=== PATIENT | male | born 1955 | race Caucasian/White ===

== ENCOUNTER 2018-08-10 01:27 | Outpatient (CLI) | payer MEDICARE, BC, SELFPAY ==
[2018-08-10 12:46] LABS: Hemoglobin A1C 7.2 % (4.5-6.2)
== END 2018-08-10 01:47 ==
PROVIDERS: PCP Family Medicine; Visit Provider Family Medicine
DX: E11.9 Type 2 diabetes mellitus without complications (principal)
CPT/HCPCS: 36415; 83036

== ENCOUNTER 2019-05-23 14:18 | Outpatient (REF) | payer MEDICARE, BC, SELFPAY ==
[2019-05-23 21:36] LABS: ALT 41 U/L (16-63); AST 25 U/L (15-37); Albumin 4.1 g/dL (3.4-5.0); Alkaline Phosphatase 63 U/L (46-116); Anion Gap 12.8 mmol/L (3-11); BUN 14 mg/dL (7-18); Bilirubin, Total 0.7 mg/dL (0.2-1.0); CO2 23.2 mmol/L (21.0-32.0); CREATININE 1.06 mg/dL (0.70-1.30); Calcium 9.6 mg/dL (8.5-10.1); Calculated LDL 47 mg/dL; Chloride 103 mmol/L (98-107); Cholesterol 124 mg/dL (50-200); Glucose 197 mg/dL (70-100); HDL Cholesterol 27 mg/dL (40-60); Potassium 4.3 mmol/L (3.5-5.1); Sodium 139 mmol/L (136-145); Total Protein 7.9 g/dL (6.4-8.2); Triglyceride 251 mg/dL (30-150)
[2019-05-25 09:31] LABS: PSA, Screening 1.2 ng/ml (0-4.5)
== END 2019-05-23 14:38 ==
LOC: NCHCN 14:18
PROVIDERS: PCP Specialist/Technologist Athletic Trainer; Visit Provider Specialist/Technologist Athletic Trainer
DX: E78.5 Hyperlipidemia, unspecified (principal); I10 Essential (primary) hypertension; N40.0 Benign prostatic hyperplasia without lower urinary tract symptoms; Z12.5 Encounter for screening for malignant neoplasm of prostate
CPT/HCPCS: 80053; 80061; 83721; 84153

== ENCOUNTER 2019-05-31 12:49 | Outpatient (REF) | payer MEDICARE, BC, SELFPAY ==
[2019-06-01 06:03] LABS: Hemoglobin A1C 7.3 % (4.5-6.2)
== END 2019-05-31 13:09 ==
LOC: NCHCN 12:49
PROVIDERS: PCP Specialist/Technologist Athletic Trainer; Visit Provider Specialist/Technologist Athletic Trainer
DX: E11.9 Type 2 diabetes mellitus without complications (principal)
CPT/HCPCS: 83036

== ENCOUNTER 2019-07-03 13:28 | Outpatient (REF) | payer MEDICARE, BC, SELFPAY ==
[2019-07-05 11:44] LABS: Hepatitis C Ab w Rflx HCV PCR Negative (NEGAT)
== END 2019-07-03 13:48 ==
LOC: NCHCN 13:28
PROVIDERS: PCP Specialist/Technologist Athletic Trainer; Visit Provider Specialist/Technologist Athletic Trainer
DX: Z11.59 Encounter for screening for other viral diseases (principal)
CPT/HCPCS: 86803

== ENCOUNTER 2019-08-17 08:50 | Outpatient (CLI) | payer MEDICARE, BC, SELFPAY | END 2019-08-17 09:10 | PROVIDERS: PCP Specialist/Technologist Athletic Trainer; Visit Provider Internal Medicine Cardiovascular Disease | DX: I25.10 Atherosclerotic heart disease of native coronary artery without angina pectoris (principal); Z95.5 Presence of coronary angioplasty implant and graft; I10 Essential (primary) hypertension; E11.9 Type 2 diabetes mellitus without complications; Z79.84 Long term (current) use of oral hypoglycemic drugs | CPT/HCPCS: 99204; 93005; 93010 ==

== ENCOUNTER 2019-09-07 00:35 | Outpatient (CLI) | payer MEDICARE, BC, SELFPAY ==
--- NOTE | 2019-09-07 13:50 | DI.US_ITS ---
APPROVED REPORT EXAM: Comprehensive 2D, Doppler, and color-flow Echocardiogram Patient Location: Out-Patient Driver/Sales Workers: Marisa Melchor RDCS (AE) Rhythm: NSR Indications: CAD i25.10 Conclusion Left Ventricle : The left ventricle is normal. Left ventricular systolic function is normal. There is normal LV segmental wall motion. Diastolic function is indeterminate but there is evidence of increa sed LV filling pressures. LVEF is estimated to be 60-65%. Right Ventricle : The right ventricle is mildly dilated (4.2cm) The right ventricular systolic functi on appears normal. Atria : The left atrium size is top normal. The right atrium size is normal. Aortic Valve : Aortic valve is trileaflet. The Aortic valve is sclerotic with focal thickening on NCC C No aortic regurgitation is present. There is no aortic valvular stenosis. Mitral Valve : Mitral valve leaflets are thickened. No evidence of mitral valve stenosis. Mild to mod erate mitral regurgitation. Tricuspid Valve : Tricuspid valve is not well visualized. Trivial to mild tricuspid regurgitation. Great Vessels : IVC is mildly dilated in size and collapses >50% with inspiration. Estimated RVSP is 34-42 mmHg. Previous echocardiographic images from 2012 are unavailable for comparison. Wall motion Left Ventricle The left ventricle is normal. Left ventricular systolic function is normal. Moderate left ventricular hypertrophy. There is normal LV segmental wall motion. Diastolic function is indeterminate but there is evidence of increased LV filling pressures. LVEF is estimated to be 60-65%. Right Ventricle The right ventricle is mildly dilated (4.2cm) The right ventricular systolic function appears normal. Atria The left atrium size is top normal. The right atrium size is normal. Aortic Valve Aortic valve is trileaflet. The Aortic valve is sclerotic with focal thickening on NCCC There is no a ortic valvular stenosis. No aortic regurgitation is present. Mitral Valve Mitral valve leaflets are thickened. No evidence of mitral valve stenosis. Mild to moderate mitral re gurgitation. Tricuspid Valve Tricuspid valve is not well visualized. Trivial to mild tricuspid regurgitation. Pulmonic Valve Pulmonic valve is not well visualized. Trace pulmonic regurgitation. Great Vessels The aortic root is normal in size. The ascending aorta is mildly dilated (3.8cm). IVC is mildly dilat ed in size and collapses >50% with inspiration. Estimated RVSP is 34-42 mmHg. Pericardium Prominent anterior epicardial fat pad is present. 2D Dimensions IVSd 1.60 cm M: 0.6-1.2 LV EDV A2C 85.60 mL PWd 1.40 cm M: 0.6 - 1.2 LV EDV A4C 110.10 mL LVDd 5.15 cm M: 4.2 - 5.8 LA Volume Index A2C 35.35 mL/m2 LVDs 3.20 cm M: 2.5 - 4.0 LA Volume Index A4C 27.00 mL/m2 Aortic Root 3.45 cm M: 3.1 - 3.7 LA Volume Index Biplane 32.86 mL/m2 RA Area A4C 15.61 cm2 LA Area A4C 20.03 cm2 LVOT 1.95 cm (M/F) 1.5-2.5 LA Area A2C 24.38 cm2 Ascending Aorta 3.77 cm M: 2.6 - 3.4 EF AP4 62.67 % LVEF (Teich) 67.58 % EF AP2 64.60 % LVEF (Ruiz's) 63.29 % M: 52 - 72 EF BP 63.29 % LV Volume 72.79 mL M: 62 - 150 LV Volume Index 33.54 mL/m2 M: 34 - 74 FS 37.80 % LV Diastology E/A Ratio 1.2 MED E' 0.06 (>0.07 m/s) LV E/e MED 12.60 (<14) LAT E' 0.10 (>0.1 m/s) LV E/e LAT 7.80 (<14) Pulm Vein s 0.62 m/s PV S/D Ratio 1.02 Pulm Vein d 0.61 m/s Pulm Vein a 0.39 m/s Aortic Valve LVOT Area 3.08 cm2 LVOT Peak Abhishek. 1.25 m/s LVOT Mean Abhishek. 0.90 m/s LVOT Peak Gr. 6.60 mmHg MARK Vmax Index 1.03 cm2/m2 LVOT Mean Gr. 3.60 mmHg LVOT VTI 0.25 m MARK Mean Abhishek. Index 1.03 cm2/m2 AoV Peak Abhishek. 1.78 (0.5-1.3 m/s) AoV Mean Abhishek. 1.24 m/s AO Peak GR. 12.62 mmHg AO Mean GR. 6.93 (<5 mmHg) VTI Ratio 0.74 MARK (VTI) 2.29 (2.5-4.5 cm2) MARK (VTI) Index 1.05 cm/m2 Mitral Valve MV E Max Abhishek. 0.81 (0.4-1.3 m/s) MV A Velocity 0.65 (0.4-1.3 m/s) E/A Ratio 1.16 MV Decel. Time 179.95 (160-240 msec) MV Regurg Volume 43.15 mL MV PHT 52.19 msec MV RF 34.33 % MVA PHT 4.20 cm2 Tricuspid Valve TR P. Velocity 2.93 m/s TV Regurg Vmax 2.93 m/s RAP Estimate 8.00 mmHg RVSP 42.42 mmHg TR P. Gradient 34.40 mmHg
== END 2019-09-07 00:55 ==
PROVIDERS: PCP Specialist/Technologist Athletic Trainer; Visit Provider Internal Medicine Cardiovascular Disease
DX: I25.10 Atherosclerotic heart disease of native coronary artery without angina pectoris (principal); I35.8 Other nonrheumatic aortic valve disorders; I10 Essential (primary) hypertension
CPT/HCPCS: 93306

== ENCOUNTER 2020-07-02 10:09 | Outpatient (CLI) | payer MEDICARE, BC, SELFPAY ==
--- NOTE | 2020-07-02 10:00 | DI.RAD_ITS ---
EXAM: XR SHOULDER LT COMPLETE 2+V CLINICAL HISTORY: pain TECHNIQUE: COMPARISON: No exams were available for comparison FINDINGS: Two views were obtained. Cartilaginous joint space of the glenohumeral joint appears fairly well chung ntained. Mild hypertrophic spurring noted at the AC joint and glenohumeral joint. No additional bon y abnormality seen. No soft tissue abnormality identified on this limited series. 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 RADIATION DOSE DELIVERED: Total DLP
== END 2020-07-02 10:29 ==
PROVIDERS: PCP Nurse Practitioner Family; Referring Provider Nurse Practitioner Family; Visit Provider Orthopaedic Surgery
DX: M19.012 Primary osteoarthritis, left shoulder (principal); M75.82 Other shoulder lesions, left shoulder; M25.512 Pain in left shoulder; E11.9 Type 2 diabetes mellitus without complications; I10 Essential (primary) hypertension
CPT/HCPCS: 20610; 99203; 99214; 73030; J1040

== ENCOUNTER 2020-07-08 09:20 | Outpatient (REF) | payer MEDICARE, BC, SELFPAY ==
[2020-07-08 22:59] LABS: ALT 43 U/L (16-63); AST 24 U/L (15-37); Anion Gap 12.1 mmol/L (3-11); BUN 22 mg/dL (7-18); CO2 26.9 mmol/L (21.0-32.0); CREATININE 1.19 mg/dL (0.70-1.30); Calcium 9.7 mg/dL (8.5-10.1); Calculated LDL 70 mg/dL (<100); Chloride 103 mmol/L (98-107); Cholesterol 131 mg/dL (<200); Glucose 199 mg/dL (74-106); HDL Cholesterol 34 mg/dL (40-60); Potassium 4.8 mmol/L (3.5-5.1); Sodium 142 mmol/L (136-145); Triglyceride 138 mg/dL (<150)
[2020-07-08 23:01] LABS: Hemoglobin A1C 7.8 % (<5.7)
[2020-07-09 18:22] LABS: PSA, Screening 1.8 ng/mL (0.0-4.5)
== END 2020-07-08 09:40 ==
LOC: NCHCN 09:20
PROVIDERS: PCP Nurse Practitioner Family; Visit Provider Nurse Practitioner Family
DX: E78.5 Hyperlipidemia, unspecified (principal); I10 Essential (primary) hypertension; E11.9 Type 2 diabetes mellitus without complications; E66.9 Obesity, unspecified; Z12.5 Encounter for screening for malignant neoplasm of prostate
CPT/HCPCS: 80048; 80061; 84153; 83036; 84450; 84460

== ENCOUNTER 2021-02-25 10:56 | Outpatient (REF) | payer MEDICARE, BC, SELFPAY ==
[2021-02-25 13:43] LABS: Anion Gap 10.2 mmol/L (3-11); BUN 13 mg/dL (7-18); CO2 27.8 mmol/L (21.0-32.0); CREATININE 1.1 mg/dL (0.70-1.30); Calcium 9.5 mg/dL (8.5-10.1); Chloride 106 mmol/L (98-107); Glucose 142 mg/dL (74-106); Potassium 4.9 mmol/L (3.5-5.1); Sodium 144 mmol/L (136-145)
[2021-02-25 13:45] LABS: Hemoglobin A1C 6.3 % (<5.7)
== END 2021-02-25 10:57 | disposition home or self-care (01) ==
LOC: NCHCN 10:56
PROVIDERS: PCP Nurse Practitioner Family; Visit Provider Internal Medicine
DX: I10 Essential (primary) hypertension (principal); E78.5 Hyperlipidemia, unspecified; E11.9 Type 2 diabetes mellitus without complications; M10.9 Gout, unspecified; E66.9 Obesity, unspecified
CPT/HCPCS: 80048; 83036; 84550

== ENCOUNTER 2021-07-22 15:10 | Outpatient (REF) | payer MEDICARE, BC, SELFPAY ==
[2021-07-22 22:32] LABS: ALT 53 U/L (16-63); AST 34 U/L (15-37); Calculated LDL 28 mg/dL (<100); Cholesterol 114 mg/dL (<200); HDL Cholesterol 28 mg/dL (40-60); Triglyceride 292 mg/dL (<150)
== END 2021-07-22 15:11 | disposition home or self-care (01) ==
LOC: NCHCN 15:10
PROVIDERS: PCP Nurse Practitioner Family; Visit Provider Nurse Practitioner Family
DX: E11.9 Type 2 diabetes mellitus without complications (principal); E78.5 Hyperlipidemia, unspecified; I10 Essential (primary) hypertension; M10.9 Gout, unspecified
CPT/HCPCS: 80061; 83036; 84450; 84460

== ENCOUNTER 2022-08-04 03:32 | Outpatient (CLI) | payer MEDICARE, BC, SELFPAY ==
[2022-08-04 16:16] LABS: Hemoglobin A1C 7.2 % (<5.7)
[2022-08-04 16:50] LABS: COMMENT (LAB VIEW ONLY) 156.36 mg/dL
[2022-08-04 16:54] LABS: Microalb ug/mg Crea 72.8 ug/mg Cr
== END 2022-08-04 03:33 | disposition home or self-care (01) ==
LOC: LBO 03:32
PROVIDERS: PCP Nurse Practitioner Family; Visit Provider Internal Medicine
DX: E11.319 Type 2 diabetes mellitus with unspecified diabetic retinopathy without macular edema (principal)
CPT/HCPCS: 36415; 82043; 82570; 83036

== ENCOUNTER 2022-11-13 22:22 | Emergency (ER) | payer MEDICARE, BC, SELFPAY ==
--- NOTE | 2022-11-13 22:15 | RT.EKG_ITS ---
APPROVED REPORT Exam: Resting ECG Reason for Exam: chest pain Patient Location: E HR:57 bpm ECG Measurements Heart Rate 57 AXIS [place] 174 P -2 QRSd 98 QRS -23 QT 419 T 32 QTc 409 Conclusion Sinus bradycardia...rate< 60 Inferior infarct, old...Q >35mS, II III aVF Normal [place] Nonspecific ST-T changes There are no significant changes compared to prior EKG performed on 08/17/2019 at 13:54.
--- NOTE | 2022-11-13 22:24 | ED.GENADUL_ITS ---
Discharge Plan Disposition Condition: Stable Discharge Details Chief Complaint: Chest Pain Clinical Impression: Abdominal pain Primary Care Provider: Veronica Campbell ED Provider: Job Beck Kasson Meds and New Rx's Prescriptions: No Action gabapentin 100 mg capsule 300 mg PO DAILY naproxen sodium [Aleve] 220 mg capsule 220 mg PO BID PRN allopurinol 300 mg tablet 300 mg PO DAILY Qty: 90 3RF atorvastatin [Lipitor] 20 mg tablet 20 mg PO DAILY Qty: 90 3RF (DME) FreeStyle Lite Strips strip 1 ea Miscellaneous TID Qty: 200 6RF Rx Instructions: One twice a day metformin 1,000 mg tablet 1,000 mg PO BID Qty: 180 3RF nitroglycerin [Nitrostat] 0.4 mg tablet, sublingual 0.4 mg Sublingual ONCE MDD 2 Qty: 30 0RF Rx Instructions: Take at onset of chest pain aspirin [Aspir-Low] 81 mg tablet,delayed release (DR/EC) 81 mg PO DAILY Qty: 90 4RF losartan 50 mg tablet 50 mg PO DAILY Qty: 90 3RF Januvia 100 mg tablet 100 mg PO DAILY Qty: 90 4RF allopurinol 300 mg tablet 300 mg PO DAILY tadalafil 5 mg tablet 5 mg PO DAILY Patient Comments: Take 1 tablet by mouth once a day as needed melatonin 5 mg tablet 5 mg PO .QHS Patient Comments: Take 1 tablet by mouth at bedtime icosapent ethyl [Vascepa] 1 gram capsule 1 g PO BID Trulicity 1.5 mg/0.5 mL pen injector 1.5 mg SUBCUT 4-8XD Medical Decision Making Patient presenting to ED with upper abdominal pain radiating into his back and down his flanks. Pain began after dinner tonight. He has had his gallbladder out previously as well as CABG. Pain is not in the chest. He does not have shortness of breath. His EKG is unchanged from previous. Because of his history I will get troponin but I feel this is more likely abdominal in nature and as such we will obtain abdominal labs, urine, CT scan. Patient will be medicated with morphine and ondansetron pending labs and imaging. ECG Data Attestation: I personally reviewed and interpreted this ECG (s) as follows: Prior ECG tracings: available for review Interpretation: see EKG, unchanged HPI General Mode of arrival: ambulatory . Date/Time Provider Initiated Documentation: 11/13/22 22:23 . Limitations to Documentation: no limitations . Information obtained by: patient . HPI Narrative: Patient presents to ED with upper abdominal pain that radiates into the back and down both flanks. Pain started after dinner tonight about 3 to 4 hours ago. He has no associated nausea, vomiting, fever, sweats, shortness of breath. He describes it as chest pain but really has pain below the ribs and epigastric going into the back. He has had prior cholecystectomy but no other abdominal surgeries. He is status post CABG and reports this pain does not feel like chest pain he had prior to the surgery. Related Data Home Medications Medication Instructions Recorded Confirmed allopurinol 300 mg tablet 300 mg PO DAILY #90 tab-caps 09/23/18 11/13/22 aspirin 81 mg tablet,delayed 81 mg PO DAILY #90 tabs 09/23/18 11/13/22 release (Aspir-Low) atorvastatin 20 mg tablet (Lipitor) 20 mg PO DAILY ##90 09/23/18 11/13/22 blood sugar diagnostic (FreeStyle #200 strips 09/23/18 07/02/20 Lite Strips) metformin 1,000 mg tablet 1,000 mg PO BID #180 tab-caps 09/23/18 11/13/22 nitroglycerin 0.4 mg sublingual 0.4 mg sublingual ONCE #30 tabs 09/23/18 11/13/22 tablet (Nitrostat) losartan 50 mg tablet 50 mg PO DAILY ##90 10/17/18 11/13/22 sitagliptin phosphate 100 mg 100 mg PO DAILY #90 tab-caps 12/20/18 11/13/22 tablet (Januvia) gabapentin 100 mg capsule 300 mg PO DAILY 07/02/20 11/13/22 naproxen sodium 220 mg capsule 220 mg PO BID PRN 07/02/20 11/13/22 (Aleve) allopurinol 300 mg tablet 300 mg PO DAILY 11/13/22 11/13/22 dulaglutide 1.5 mg/0.5 mL 1.5 mg subcut 4-8XD 11/13/22 11/13/22 subcutaneous pen injector (Trulicity) icosapent ethyl 1 gram capsule 1 g PO BID 11/13/22 11/13/22 (Vascepa) melatonin 5 mg tablet 5 mg PO .QHS 11/13/22 11/13/22 tadalafil 5 mg tablet 5 mg PO DAILY 11/13/22 11/13/22 Previous Rx's Medication Instructions Recorded allopurinol 300 mg tablet 300 mg PO DAILY #90 tab-caps 09/23/18 aspirin 81 mg tablet,delayed 81 mg PO DAILY #90 tabs 09/23/18 release (Aspir-Low) atorvastatin 20 mg tablet (Lipitor) 20 mg PO DAILY ##90 09/23/18 blood sugar diagnostic (FreeStyle #200 strips 09/23/18 Lite Strips) metformin 1,000 mg tablet 1,000 mg PO BID #180 tab-caps 09/23/18 nitroglycerin 0.4 mg sublingual 0.4 mg sublingual ONCE #30 tabs 09/23/18 tablet (Nitrostat) losartan 50 mg tablet 50 mg PO DAILY ##90 10/17/18 sitagliptin phosphate 100 mg 100 mg PO DAILY #90 tab-caps 12/20/18 tablet (Januvia) Allergies Allergy/AdvReac Type Severity Reaction Status Date / Time sulfamethoxazole Allergy Intermediate Rash Unverified 11/13/22 22:29 [From Bactrim] trimethoprim [From Bactrim] Allergy Intermediate Rash Unverified 11/13/22 22:29 colchicine Allergy Skin Rash Unverified 11/13/22 22:29 metronidazole Allergy Skin Rash Unverified 11/13/22 22:29 Review of Systems Narrative: per HPI PFSH All Active Problems (Updated 11/13/22 @ 22:55 by Job Beck MD) Tendonitis of left rotator cuff (Acute) Injection: 07/02/20 Left shoulder pain (Acute) Neuropathy (Acute) Coronary artery disease (Chronic 01/30/15) CABG x 3 2010 Polyp of colon (Chronic) Overweight (Chronic) Memory impairment (Chronic) Kidney stone (Chronic) Diverticulitis of colon (Chronic) recurrent Cervical radiculopathy (Chronic 08/03/17) Abdominal pain (Chronic) Medical History Alopecia areata BPH w urinary obs/LUTS (08/03/17) Diabetes mellitus Essential hypertension (12/11/13) Gastroesophageal reflux disease Gout Hyperlipidemia (06/21/14) Surgical History History of coronary artery bypass surgery History of laparoscopic cholecystectomy (08/05/16) Status post rotator cuff repair Family History Mother No problems noted. Father No problems noted. Sister No problems noted. Brother No problems noted. Brother No problems noted. Brother No problems noted. Social History Smoking/Tobacco Use Status: Former Tobacco Use Quit Date: 09/27/94 Tobacco: How many years used: 16 Smoking risk assessment performed?: Yes Alcohol Intake: current Alcohol Intake frequency: holidays/special occasions only Drug use: Never What type of physical activity do you participate in: walking Duration: 15-30 minutes/day Frequency: 3-4 times per week Exam Narrative Exam Narrative: Const: WDWN elderly male in NAD. HEENT: NC/AT. Normal facial exam. Eyes: Normal conjunctiva and sclera. Neck: Supple. Trachea midline. Lungs: Normal respiratory effort. Lungs are clear. Cor: RRR without murmur/gallop. Good radial pulses. GI: Soft protuberant abdomen. Tender epigastric area. No guarding or rebound. Neuro: A+O x 3. Normal speech, mentation, gait. Cranial nerves II - XII grossly intact. No gross motor or sensory deficit. Ext: No C/C/E. Skin: Warm and dry without rash. Sign Out Sign Out Data: Sign Out Comment: pending labs, urine and imaging and re-eval post studies Last updated by Job Beck MD at 11/13/22 22:53
[2022-11-13 22:25] VITALS: BP 207/83; PULSE 63; RESP 16; TEMP 37.1; O2SAT 99
--- OUTSIDE RECORDS SUMMARY | 2022-11-13 22:30 | XMS_ITS | Continuity of Care Document ---
Author Name Unknown Organization [facility] Address [address] [place] [address] Care Team Providers Care Store Cashier Name Role Phone MALIA MACK Primary Care Physician Encounter [facility] NBR [id number] Date(s): 11/09/22 - 11/09/22 [facility] [address] [place] [address] us Assessment and Plan Future Appointments Social History Social History Type Response Sex Male Patient Care team information Care Team Personnel Name: MALIA MACK Position: No Access Member Role: Primary Care Physician Address: Address: [address] [address] Care Team Related Persons Name: OSITO RAINEY Address: Home [address] [place] [id number] [facility]
--- OUTSIDE RECORDS SUMMARY | 2022-11-13 22:30 | XMS_ITS ---
Author Name Princess Bernal Address [address], [place] [id number] Organization [facility] Address [address], [place] [id number] Care Team Providers Care Stock Transfer Clerk Name Role Phone Princess Bernal Unavailable [phone] PROBLEMS Unknown Problems ALLERGIES No Information ENCOUNTERS Encounter Location Date Diagnosis [facility] [address] [place], [place] [id number] Mar, [facility] [address] [place], [place] [id number] January, Encounter for screening laboratory testing for COVID-19 virus Z20.822 IMMUNIZATIONS No Known Immunizations SOCIAL HISTORY Never Assessed REASON FOR REFERRAL FUNCTIONAL STATUS PLAN OF CARE Activity Details VITAL SIGNS MEDICATIONS Unknown Medications PROCEDURES No Known procedures RESULTS Name Result Date Reference Range COVID 19 SCREENING PCR ([id number]) 2022-01-26 8 SARS-CoV-2, MEG REASON FOR VISIT PFT-complete, PFT , dmch order Insurance Providers Health Insurance Type Health Plan Insurance Address Health Plan Insurance Phone Health Plan Insurance Name Health Plan Coverage Dates Member ID Patient Relationship to Subscriber Patient Address Patient Phone Patient Name Patient Date of Subscriber ID Subscriber Name Subscriber Date of Group No MEDICARE [address] [facility] [id number] MEDICARE self Conrad Vera [id number] [place] [address] [facility] [id number] [place] self Conrad Vera [id number]
[2022-11-13 22:38] VITALS: RESP 13
[2022-11-13] MEDS: Normal Saline 1,000 ML 125 ML IV (22:47)
[2022-11-13] MEDS: Ondansetron 4 MG/2 ML VIAL IVP (22:48)
[2022-11-13] MEDS: MORPHine 10 MG/ML VIAL 4 MG IVP (22:50)
[2022-11-13 22:55] LABS: Abs Immature Grans 0.02 10^3/uL (0.0-0.06); Absolute Basophil Count 0.04 10^3/uL (0.0-0.2); Absolute Eosinophil Count 0.17 10^3/uL (0.0-0.7); Absolute Lymphocyte Count 2.41 10^3/uL (1.2-3.4); Absolute Monocyte Count 0.53 10^3/uL (0.1-0.8); Absolute Neutrophil Count 4.22 10^3/uL (1.2-6.7); Basophils % 0.5; Eosinophils % 2.3; HGB 13.6 g/dL (13.5-17.5); Immature Grans % 0.3; Lymphocytes % 32.6; MCH 31.1 pg (27.0-33.0); MCV 92 fL (80-95); MPV 10.8 fL (8.0-11.0); Monocytes % 7.2; Neutrophils % 57.1; Platelet Count 114 10^3/uL (130-400); RBC 4.37 10^6/uL (4.36-5.78); RDW 13.1 % (11.8-14.1); RDW-SD 43.5 fL; WBC 7.39 10^3/uL (4.4-10.8)
[2022-11-13 22:57] VITALS: BP 197/82; PULSE 54; PULSE 55; RESP 13
[2022-11-13 22:58] VITALS: PULSE 58; RESP 16
[2022-11-13 23:00] LABS: Bilirubin Negative (Negative); Blood Negative (Negative); Clarity Clear (Clear); Glucose Negative (Negative); Ketones Negative (Negative); Leukocyte Esterase Negative (Negative); Nitrite Negative (Negative); Specific Gravity >= 1.030 (1.005-1.025); Urobilinogen 0.2 mg/dL (Up to 0.2)
--- NOTE | 2022-11-13 23:00 | DI.CT_ITS ---
Exam(s) CT CHEST/ABD/PEL W EXAM: CT CHEST/ABD/PEL W CLINICAL HISTORY: lower chest, upper abd pain, radiating b/l to back. TECHNIQUE: Imaging Protocol: Axial computed tomography images with coronal and sagittal reformatted images were created and reviewed CONTRAST MATERIAL: Intravenous: Omnipaque 350 Contrast volume:100 ml Oral: / no COMPARISON: CT ABD PELVIS WITH CONTRAST from 01/21/2018 FINDINGS: CHEST: Tracheobronchial tree: Patent where visualized. Pulmonary parenchyma: Mild densities medial right lower lobe may represent atelectasis. Early infilt rate not excluded. No consolidation or dominant measurable mass. Pleura: No effusion or pneumothorax. Lymph nodes: Within normal limits. Aorta: Thoracic portion non-dilated. Mild atherosclerotic changes. Heart: Status post CABG. Mildly enlarged. Coronary artery calcifications. Bones: Sternal wires. No lytic or blastic lesions.No compression fractures. Degenerative disc amezcua es. ABDOMEN: Liver: Enlarged. Ivia-zi-uxcdkitr hepatic steatosis. No measurable mass. Gallbladder and biliary tract: No radiodense calculus or dilation. Pancreas: Normal density, no abnormal calcifications or inflammatory process. Spleen: Mildly enlarged, unchanged.. Kidneys: Normal size, contour and axis. No radiodense stones or obstructive uropathy. No suspicious m asses seen. Adrenal glands: No masses seen. Aorta: Abdominal portion non-dilated. Atherosclerotic changes. Lymph nodes: Within normal limits. Soft tissues: Unremarkable. PELVIS: Bladder: Nearly empty, not well evaluated. Bowel: Severe diverticulosis descending and sigmoid colon. No obstruction or bowel wall thickening. Appendix normal. Peritoneal cavity: No ascites, collection or mesenteric inflammatory response. Bones: Unremarkable for age.. Reproductive organs: Mildly enlarged prostate. IMPRESSION: Mild medial right lower lobe atelectasis versus developing infiltrate. Diverticulosis. No evidence of diverticulitis or other acute abnormality in the abdomen or pelvis. RADIATION DOSE DELIVERED: 1,471.93mGy.cm Total DLP DATA REPOSITORY: All CT scans at this facility are submitted to the National Radiology Data Registry (NRDR) Dose Index Registry (DIR) with the [employer] (ACR). RADIATION OPTIMIZATION: All CT scans at this facility use at least one of these dose optimization te chniques: automated exposure control; mA and/or kV adjustment per patient size (includes targeted exa ms where dose is matched to clinical indication); or iterative reconstruction.
[2022-11-13 23:13] LABS: Bacteria Rare HPF (Negative); C & S Indicated? No; Casts 3-5 Hyaline LPF (Negative); Crystals Negative HPF (Negative); Epithelial Cells Few HPF (Negative); Mucus Moderate (Negative); RBC Negative HPF (0-2); WBC 0-2 HPF (0-5)
[2022-11-13 23:13] LABS: ALT 33 U/L (16-63); AST 32 U/L (15-37); Albumin 4.5 g/dL (3.4-5.0); Alkaline Phosphatase 70 U/L (46-116); Anion Gap 9.9 mmol/L (3-11); BUN 14 mg/dL (7-18); Bilirubin, Total 0.9 mg/dL (0.2-1.0); CO2 26.1 mmol/L (21.0-32.0); CREATININE 1.3 mg/dL (0.70-1.30); Calcium 9.5 mg/dL (8.5-10.1); Chloride 101 mmol/L (98-107); Estimated GFR 59.47 (mL/min/1.73m2); Glucose 133 mg/dL (74-106); Lipase 40 U/L (16-77); Magnesium 1.8 mg/dL (1.8-2.4); Sodium 137 mmol/L (136-145); Total Protein 8.2 g/dL (6.4-8.2); Troponin I < 50 ng/L (<or=60)
[2022-11-13] MEDS: Sucralfate 1 GM TAB PO (23:13)
[2022-11-13] MEDS: Famotidine 20 MG/2 ML VIAL IVP (23:13)
--- NOTE | 2022-11-13 23:27 | ED.PROG_ITS ---
Date of service: 11/13/22 Time of Service: 23:00 Medical Decision Making 0 --please see Dr. Beck's note for initial presentation, exam and plan. Case endorsed to follow-up on labs and imaging and final disposition. 67-year-old male with a history of obesity, GERD, gout, hypertension, hyperlipidemia, diabetes, coronary artery disease with history of triple bypass and 5 coronary stents, cholecystectomy presents with sudden onset of lower chest and epigastric pain with radiation around to both sides of his back that started 20 minutes after eating dinner this evening. Patient states he ate pork chops, baked potato with butter and carrots and 20 minutes later developed sharp epigastric pain which radiated around to both sides of the abdomen and back. He states he also feels is radiating down both sides of his abdomen laterally. He did not take any medication at home for pain. He denies any fever, nausea, vomiting, diarrhea, urinary symptoms, coughing or shortness of breath. He states his symptoms feel different than when he has had an MA in the past. He states it also feels different compared to previous kidney stones. Abdomen is obese and tender in the epigastrium. He appears uncomfortable. His blood pressure is moderately hypertensive but the remainder of his vitals are within normal limits. His EKG on arrival noted a rate of 57, sinus and no STEMI. Patient was given morphine and Zofran per Dr. Beck and referred for labs and CT abdomen and pelvis. Considering he complains of bilateral lower chest and epigastric pain, will include chest abdomen and pelvis however I agree his symptoms are likely due to a gastrointestinal etiology. We will give a dose of IV Pepcid, Carafate and GI cocktail and reassess. 0045 --labs and imaging reviewed. Normal white blood cell count. Lactate 2. Troponin negative. Lipase within normal limits. Urinalysis negative for infection but notes high specific gravity. CT chest abdomen and pelvis no acute abdominal process consistent with patient's symptoms. History and presentation does not appear consistent with pneumonia or colitis. Patient reassessed and he feels slightly better but still appears uncomfortable. Results discussed with patient that he may be slightly dehydrated. He states he drinks 1 cup of coffee in the morning and an ice tea at nighttime and does not drink water throughout the day. Discussed the importance of staying hydrated with water. We will give a dose of Dilaudid IV. Will give fluid bolus and repeat lactate. We will plan for repeat troponin and EKG. 0240 --repeat troponin negative. Repeat EKG unremarkable. Repeat lactate now within normal limits. Patient reassessed and he feels better and would like to go home. He states he still has occasional abdominal spasms but would prefer to go home to sleep. Offered to continue to watch patient in the ER for the next 2 hours but he declines. Disposition decision made weighing the risks and benefits of hospitalization versus outpatient treatment, the risk for further decompensation, and the patient's wishes. We will give a Valium to go for home to help with sleep and muscle relaxation. A prescription for Carafate sent electronically to his pharmacy. Advised to call the PCP on Wednesday for follow-up and for referral to general surgery for upper endoscopy if symptoms do not improve or worsen. Usual and customary return precautions given prior to discharge. Medical Records Medical records reviewed: Yes I reviewed the patient's medical records. Imaging Data Radiologic Study: Radiologist's impression: CT Chest With Contrast; Diagnostic Exam date and time: 11/13/2022 11:38 PM Age: 67 years old Clinical indication: Lower chest, upper abd pain, radiating b/l to back, r/o pneumonia, gastritis, pancreatitis; Prior surgery; date: 6+ months: Open heart TECHNIQUE: Imaging protocol: Diagnostic computed tomography of the chest with contrast. 3D rendering (Not supervised by radiologist): MIP and/or 3D reconstructed images were created by the technologist. Radiation optimization: All CT scans at this facility use at least one of these dose optimization techniques: automated exposure control; mA and/or kV adjustment per patient size (includes targeted exams where dose is matched to clinical indication); or iterative reconstruction. Contrast material: OMNIPAQUE 350; Contrast volume: 100 ml; Contrast route: INTRAVENOUS (IV);? COMPARISON: CT ABD PELVIS WITH CONTRAST 01/21/2018 10:18 AM FINDINGS: Lungs: Area of mild infiltrate or atelectasis within the posteromedial right lower lobe. Pleural spaces: No pleural fluid collection. No pneumothorax. Heart: No pericardial effusion.? Coronary artery calcification.? Lymph nodes: No enlarged lymph nodes. Vasculature: Normal caliber thoracic aorta without dissection or aneurysm. Bones/joints: Spinal degenerative changes. Prior median sternotomy. Soft tissues: Unremarkable. IMPRESSION: 1.? Area of mild infiltrate or atelectasis within the posteromedial right lower lobe. 2.? No pleural fluid collection. CT Abdomen And Pelvis With Contrast Exam date and time: 11/13/2022 11:38 PM Age: 67 years old Clinical indication: Lower chest, upper abd pain, radiating b/l to back, r/o pneumonia, gastritis, pancreatitis; Prior surgery; date: 6+ months: Open heart TECHNIQUE: Imaging protocol: Computed tomography of the abdomen and pelvis with contrast. 3D rendering (Not supervised by radiologist): MIP and/or 3D reconstructed images were created by the technologist. Radiation optimization: All CT scans at this facility use at least one of these dose optimization techniques: automated exposure control; mA and/or kV adjustment per patient size (includes targeted exams where dose is matched to clinical indication); or iterative reconstruction. Contrast material: OMNIPAQUE 350; Contrast volume: 100 ml; Contrast route: INTRAVENOUS (IV);? COMPARISON: CT ABD PELVIS WITH CONTRAST 01/21/2018 10:18 AM FINDINGS: Liver: Normal. No mass. Gallbladder and bile ducts: Status post cholecystectomy. No biliary tract dilatation. Pancreas: Normal. No ductal dilation. Spleen: Splenomegaly (15 cm CC dimension). Adrenal glands: Normal. No mass. Kidneys and ureters: No hydronephrosis. No calcified renal or ureteral stones. No perinephric stranding or perinephric fluid. Stomach and bowel: The majority of the left colon is under-distended and wall thickness cannot be accurately assessed. A colitis cannot be excluded. Scattered colon diverticuli without evidence of diverticulitis. Appendix: Normal appendix. Intraperitoneal space: No free air. No significant fluid collection. Vasculature: The abdominal aorta is normal in caliber without aneurysm or dissection. Lymph nodes: No enlarged lymph nodes. Urinary bladder: Unremarkable as visualized. Reproductive: Enlarged prostate gland measuring 5 cm transversely. Bones/joints: Spinal degenerative changes. Soft tissues: Fat-containing inguinal hernias. IMPRESSION: 1.? The majority of the left colon is under-distended and wall thickness cannot be accurately assessed. A colitis cannot be excluded. 2.? Scattered colon diverticuli without evidence of diverticulitis. 3.? Enlarged prostate gland measuring 5 cm transversely. 4.? Splenomegaly (15 cm CC dimension). 5.? No CT evidence of gastritis or pancreatitis. 6.? Otherwise, no acute intra-abdominal or pelvic process. ECG Data Attestation: I personally reviewed and interpreted this ECG (s) as follows: Interpretation: #1 -- rate of sinus, Q waves inferior leads, no stemi. Sign Out Sign Out Data: Sign Out Comment: pending labs, urine and imaging and re-eval post studies Last updated by Job Beck MD at 11/13/22 22:53 Discharge Plan Disposition Patient Disposition: Home Condition: Improving Discharge Details Clinical Impression: Epigastric abdominal pain Primary Care Provider: Veronica Campbell ED Provider: Addis Miller Home Meds and New Rx's Prescriptions: New sucralfate [Carafate] 1 gram tablet 1 gm PO QACHS Qty: 14 0RF Continued gabapentin 100 mg capsule 300 mg PO DAILY naproxen sodium [Aleve] 220 mg capsule 220 mg PO BID PRN allopurinol 300 mg tablet 300 mg PO DAILY Qty: 90 3RF atorvastatin [Lipitor] 20 mg tablet 20 mg PO DAILY Qty: 90 3RF (DME) FreeStyle Lite Strips strip 1 ea Miscellaneous TID Qty: 200 6RF Rx Instructions: One twice a day metformin 1,000 mg tablet 1,000 mg PO BID Qty: 180 3RF nitroglycerin [Nitrostat] 0.4 mg tablet, sublingual 0.4 mg Sublingual ONCE MDD 2 Qty: 30 0RF Rx Instructions: Take at onset of chest pain aspirin [Aspir-Low] 81 mg tablet,delayed release (DR/EC) 81 mg PO DAILY Qty: 90 4RF losartan 50 mg tablet 50 mg PO DAILY Qty: 90 3RF Januvia 100 mg tablet 100 mg PO DAILY Qty: 90 4RF allopurinol 300 mg tablet 300 mg PO DAILY tadalafil 5 mg tablet 5 mg PO DAILY Patient Comments: Take 1 tablet by mouth once a day as needed melatonin 5 mg tablet 5 mg PO .QHS Patient Comments: Take 1 tablet by mouth at bedtime icosapent ethyl [Vascepa] 1 gram capsule 1 g PO BID Trulicity 1.5 mg/0.5 mL pen injector 1.5 mg SUBCUT [id number] Discharge Instructions Instructions: Diet for Stomach Ulcers and Gastritis (ED), GERD (Gastroesophageal Reflux Disease) (ED), Epigastric Pain (ED) Additional Instructions: Your blood tests, EKGs and imaging today are reassuring and show no evidence of acute concerning or significant findings. Drink plenty of fluids and get plenty of rest. A prescription for Carafate has been sent electronically to your pharmacy to take as directed for your abdominal pain. Start taking an [id number] omeprazole or Prilosec once daily for the next 2 weeks. Call your primary care doctor's office on Wednesday morning to schedule a follow-up appointment for reevaluation and for referral for stress test if indicated or for referral to general surgery for reevaluation and consideration of upper endoscopy if your symptoms do not improve or worsen. Return immediately to the emergency department if you develop any worsening or new concerning symptoms such as fever, worsening pain, persistent vomiting or any other concerns. Referrals: Jeremiah Mukherjee MD [ [facility] STAFF PHYSICIAN] - Discharge Data Discharge Physician: Addis Miller
[2022-11-13 23:51] VITALS: PULSE 66; RESP 16
[2022-11-13 23:53] VITALS: BP 172/76; PULSE 58; PULSE 60; RESP 12
[2022-11-13] MEDS: Omnipaque 350 MG/ML 100 ML BTL IJ (23:57)
[2022-11-13] MEDS: Normal Saline Flush 10 ML SYR IVP (23:58)
[2022-11-13] MEDS: Normal Saline - Diluent 50 ML VIAL IJ (23:58)
[2022-11-14] VITALS (29 sets, daily range): BP systolic 171–196; BP diastolic 70–85; PULSE 49–64; RESP 8–17; TEMP 37.1; O2SAT 99
--- NOTE | 2022-11-14 00:25 | DI.VRAD_ITS ---
PROCEDURE INFORMATION: Exam: CT Chest With Contrast; Diagnostic Exam date and time: 11/13/2022 11:38 PM Age: 67 years old Clinical indication: Lower chest, upper abd pain, radiating b/l to back, r/o pneumonia, gastritis, pancreatitis; Prior surgery; date: 6+ months: Open heart TECHNIQUE: Imaging protocol: Diagnostic computed tomography of the chest with contrast. 3D rendering (Not supervised by radiologist): MIP and/or 3D reconstructed images were created by the technologist. Radiation optimization: All CT scans at this facility use at least one of these dose optimization techniques: automated exposure control; mA and/or kV adjustment per patient size (includes targeted exams where dose is matched to clinical indication); or iterative reconstruction. Contrast material: OMNIPAQUE 350; Contrast volume: 100 ml; Contrast route: INTRAVENOUS (IV); COMPARISON: CT ABD PELVIS WITH CONTRAST 01/21/2018 10:18 AM FINDINGS: Lungs: Area of mild infiltrate or atelectasis within the posteromedial right lower lobe. Pleural spaces: No pleural fluid collection. No pneumothorax. Heart: No pericardial effusion. Coronary artery calcification. Lymph nodes: No enlarged lymph nodes. Vasculature: Normal caliber thoracic aorta without dissection or aneurysm. Bones/joints: Spinal degenerative changes. Prior median sternotomy. Soft tissues: Unremarkable. IMPRESSION: 1. Area of mild infiltrate or atelectasis within the posteromedial right lower lobe. 2. No pleural fluid collection. PROCEDURE INFORMATION: Exam: CT Abdomen And Pelvis With Contrast Exam date and time: 11/13/2022 11:38 PM Age: 67 years old Clinical indication: Lower chest, upper abd pain, radiating b/l to back, r/o pneumonia, gastritis, pancreatitis; Prior surgery; date: 6+ months: Open heart TECHNIQUE: Imaging protocol: Computed tomography of the abdomen and pelvis with contrast. 3D rendering (Not supervised by radiologist): MIP and/or 3D reconstructed images were created by the technologist. Radiation optimization: All CT scans at this facility use at least one of these dose optimization techniques: automated exposure control; mA and/or kV adjustment per patient size (includes targeted exams where dose is matched to clinical indication); or iterative reconstruction. Contrast material: OMNIPAQUE 350; Contrast volume: 100 ml; Contrast route: INTRAVENOUS (IV); COMPARISON: CT ABD PELVIS WITH CONTRAST 01/21/2018 10:18 AM FINDINGS: Liver: Normal. No mass. Gallbladder and bile ducts: Status post cholecystectomy. No biliary tract dilatation. Pancreas: Normal. No ductal dilation. Spleen: Splenomegaly (15 cm CC dimension). Adrenal glands: Normal. No mass. Kidneys and ureters: No hydronephrosis. No calcified renal or ureteral stones. No perinephric stranding or perinephric fluid. Stomach and bowel: The majority of the left colon is under-distended and wall thickness cannot be accurately assessed. A colitis cannot be excluded. Scattered colon diverticuli without evidence of diverticulitis. Appendix: Normal appendix. Intraperitoneal space: No free air. No significant fluid collection. Vasculature: The abdominal aorta is normal in caliber without aneurysm or dissection. Lymph nodes: No enlarged lymph nodes. Urinary bladder: Unremarkable as visualized. Reproductive: Enlarged prostate gland measuring 5 cm transversely. Bones/joints: Spinal degenerative changes. Soft tissues: Fat-containing inguinal hernias. IMPRESSION: 1. The majority of the left colon is under-distended and wall thickness cannot be accurately assessed. A colitis cannot be excluded. 2. Scattered colon diverticuli without evidence of diverticulitis. 3. Enlarged prostate gland measuring 5 cm transversely. 4. Splenomegaly (15 cm CC dimension). 5. No CT evidence of gastritis or pancreatitis. 6. Otherwise, no acute intra-abdominal or pelvic process. Dictated and Authenticated by: Sim Greenfield MD. Ordering:AUDREY Mancini MD
[2022-11-14] MEDS: Normal Saline 500 ML IV (00:26)
--- NOTE | 2022-11-14 00:45 | RT.EKG_ITS ---
APPROVED REPORT Exam: Resting ECG Reason for Exam: chest pain Patient Location: E HR:55 bpm ECG Measurements Heart Rate 55 AXIS PA 172 P 5 QRSd 98 QRS -18 QT 436 T 23 QTc 416 Conclusion Sinus bradycardia...rate< 60 Inferior infarct, old...Q >35mS, II III aVF. Sinus. No STEMI. I have reviewed and interpreted ECG and agree with software generated interpretation.
[2022-11-14] MEDS: HYDROmorphone 2 MG/ML SYR 1 MG IVP (01:01)
[2022-11-14 02:09] LABS: Troponin I < 50 ng/L (<or=60)
[2022-11-14] MEDS: Sucralfate 1 GM TAB PO (02:55)
[2022-11-14] MEDS: diazePAM 5 MG TAB PO (02:55)
--- NOTE | 2022-11-14 13:15 | NUR.NOTE ---
Nursing Note: called stating that [facility] requested at their visit last evening. Per Dr. Bernard Rivera I called the prescription in to [facility] and then changed the preference in the computer to [facility] in [place] also.
== END 2022-11-14 02:58 | disposition home or self-care (01) ==
PROVIDERS: Emergency Medicine; Emergency Provider Physician Assistant; PCP Nurse Practitioner Family
DX: R10.13 Epigastric pain (principal); I10 Essential (primary) hypertension; E11.40 Type 2 diabetes mellitus with diabetic neuropathy, unspecified; Z79.82 Long term (current) use of aspirin; Z79.84 Long term (current) use of oral hypoglycemic drugs; Z90.49 Acquired absence of other specified parts of digestive tract
CPT/HCPCS: 74177; 80053; 83690; 93005; 96361; 96374; 96375; 99284; 71260; 81003; 81015; 83605; 83735; 84484; 85025; 93010; J1170; J2270; J2405; J3490

== ENCOUNTER 2022-11-14 16:46 | Emergency (ER) | payer MEDICARE, BC, SELFPAY ==
[2022-11-14] VITALS (21 sets, daily range): BP systolic 101–108; BP diastolic 52–59; PULSE 80–102; RESP 10–24; TEMP 36.5; O2SAT 90–98
--- NOTE | 2022-11-14 16:45 | RT.EKG_ITS ---
APPROVED REPORT Exam: Resting ECG Reason for Exam: chest pain Patient Location: E HR:89 bpm ECG Measurements Heart Rate 89 AXIS MT 155 P 49 QRSd 89 QRS 85 QT 359 T 16 QTc 437 Conclusion Sinus rhythm...normal P axis, V-rate 60- 99 Low voltage, precordial leads...precordial leads <1.0mV
--- NOTE | 2022-11-14 17:25 | ED.GENADUL_ITS ---
Discharge Plan Discharge Details Chief Complaint: Chest Pain Primary Care Provider: Veronica Campbell ED Provider: Bernard Rivera Home Meds and New Rx's Prescriptions: No Action gabapentin 100 mg capsule 300 mg PO DAILY naproxen sodium [Aleve] 220 mg capsule 220 mg PO BID PRN allopurinol 300 mg tablet 300 mg PO DAILY Qty: 90 3RF atorvastatin [Lipitor] 20 mg tablet 20 mg PO DAILY Qty: 90 3RF (DME) FreeStyle Lite Strips strip 1 ea Miscellaneous TID Qty: 200 6RF Rx Instructions: One twice a day metformin 1,000 mg tablet 1,000 mg PO BID Qty: 180 3RF nitroglycerin [Nitrostat] 0.4 mg tablet, sublingual 0.4 mg Sublingual ONCE MDD 2 Qty: 30 0RF Rx Instructions: Take at onset of chest pain aspirin [Aspir-Low] 81 mg tablet,delayed release (DR/EC) 81 mg PO DAILY Qty: 90 4RF losartan 50 mg tablet 50 mg PO DAILY Qty: 90 3RF Januvia 100 mg tablet 100 mg PO DAILY Qty: 90 4RF allopurinol 300 mg tablet 300 mg PO DAILY tadalafil 5 mg tablet 5 mg PO DAILY Patient Comments: Take 1 tablet by mouth once a day as needed melatonin 5 mg tablet 5 mg PO .QHS Patient Comments: Take 1 tablet by mouth at bedtime icosapent ethyl [Vascepa] 1 gram capsule 1 g PO BID Trulicity 1.5 mg/0.5 mL pen injector 1.5 mg SUBCUT 4-8XD sucralfate [Carafate] 1 gram tablet 1 gm PO QACHS Qty: 14 0RF Medical Decision Making 1757 --67-year-old male with history of coronary artery disease status post CABG and subsequent stenting, here with severe nausea, vomiting, substernal chest discomfort. Patient was here last night for abdominal discomfort and had comprehensive work- up including serial cardiac enzymes and CT of the abdomen pelvis. Work-up was nondiagnostic. Consider ACS. EKG was reviewed and interpreted by me: Please report, sinus rhythm 89 bpm, normal axis, no STEMI, nondiagnostic. Plan to check troponin. Plan to treat nausea with Zofran 4 mg IV. 1817 -- Patient noted to be persistently hypoxic saturating the low 90s. Patient was tachycardic on arrival with heart rate 102 and low blood pressure 101/59. Consider acute pulmonary embolism and plan to obtain CT of the chest. I will give IV fluid bolus. -- Patient reassessed and feeling better. CT interpretation pending. Troponin pending. 1941 -- CT of the chest interpreted by radiology: IMPRESSION: 1. No PE. 2. Stable right lower lobe ground-glass disease. 3. Stable 3 mm right basilar nodule.For patients at low risk (minimal or absent history of smoking and of other known risk factors), no routine follow-up is indicated. For patients at high risk (history of smoking or of other known risk factors), consider optional CT Chest at 12 months. (Reference: Leo) Delta troponin pending. Lab Data Lab results reviewed: Yes I reviewed the patient's lab results. Labs: Laboratory Tests Range/Units 11/14/22 11/14/22 11/14/22 17:25 17:25 17:25 WBC (4.4-10.8) 10^3/uL 5.62 RBC (4.36-5.78) 10^6/uL 4.55 Hgb (13.5-17.5) g/dL 14.3 Hct (40.0-50.0) % 41.6 MCV (80-95) fL 91 MCH (27.0-33.0) pg 31.4 MCHC (32.0-36.0) % 34.4 RDW (11.8-14.1) % 13.3 Plt Count (130-400) 10^3/uL 130 MPV (8.0-11.0) fL 11.0 Immature Gran % 1.1 Neutrophils % 88.1 Lymphocytes % 7.5 Monocytes % 2.0 Eosinophils % 1.1 Basophils % 0.2 Nucleated RBC % (0.0-0.3) % 0.0 Absolute Neutrophils (1.2-6.7) 10^3/uL 4.96 Absolute Lymphocytes (1.2-3.4) 10^3/uL 0.42 L Absolute Monocytes (0.1-0.8) 10^3/uL 0.11 Absolute Eosinophils (0.0-0.7) 10^3/uL 0.06 Absolute Basophils (0.0-0.2) 10^3/uL 0.01 APTT (21.5-31.9) sec 21.8 Sodium (136-145) mmol/L 137 Potassium (3.5-5.1) mmol/L 4.1 Chloride (98-107) mmol/L 101 Carbon Dioxide (21.0-32.0) mmol/L 22.8 Anion Gap (3-11) mmol/L 13.2 H BUN (7-18) mg/dL 13 Creatinine (0.70-1.30) mg/dL 1.4 H Est GFR (CKD-EPI 2020) (mL/min/1.73m2) 54.41 Glucose (74-106) mg/dL 179 H Calcium (8.5-10.1) mg/dL 9.3 Magnesium (1.8-2.4) mg/dL 1.7 L Total Bilirubin (0.2-1.0) mg/dL 1.3 H AST (15-37) U/L 35 ALT (16-63) U/L 32 Alkaline Phosphatase (46-116) U/L 73 Troponin I (<or=60) ng/L < 50 Total Protein (6.4-8.2) g/dL 7.4 Albumin (3.4-5.0) g/dL 4.0 COVID-19 Source SARS-CoV-2 (PCR) (Negative) Range/Units 11/14/22 18:20 WBC (4.4-10.8) 10^3/uL RBC (4.36-5.78) 10^6/uL Hgb (13.5-17.5) g/dL Hct (40.0-50.0) % MCV (80-95) fL MCH (27.0-33.0) pg MCHC (32.0-36.0) % RDW (11.8-14.1) % Plt Count (130-400) 10^3/uL MPV (8.0-11.0) fL Immature Gran % Neutrophils % Lymphocytes % Monocytes % Eosinophils % Basophils % Nucleated RBC % (0.0-0.3) % Absolute Neutrophils (1.2-6.7) 10^3/uL Absolute Lymphocytes (1.2-3.4) 10^3/uL Absolute Monocytes (0.1-0.8) 10^3/uL Absolute Eosinophils (0.0-0.7) 10^3/uL Absolute Basophils (0.0-0.2) 10^3/uL APTT (21.5-31.9) sec Sodium (136-145) mmol/L Potassium (3.5-5.1) mmol/L Chloride (98-107) mmol/L Carbon Dioxide (21.0-32.0) mmol/L Anion Gap (3-11) mmol/L BUN (7-18) mg/dL Creatinine (0.70-1.30) mg/dL Est GFR (CKD-EPI 2020) (mL/min/1.73m2) Glucose (74-106) mg/dL Calcium (8.5-10.1) mg/dL Magnesium (1.8-2.4) mg/dL Total Bilirubin (0.2-1.0) mg/dL AST (15-37) U/L ALT (16-63) U/L Alkaline Phosphatase (46-116) U/L Troponin I (<or=60) ng/L Total Protein (6.4-8.2) g/dL Albumin (3.4-5.0) g/dL COVID-19 Source Nasal/Nares SARS-CoV-2 (PCR) (Negative) Negative HPI General Mode of arrival: ambulatory . Date/Time Provider Initiated Documentation: 11/14/22 17:05 . Limitations to Documentation: no limitations . Information obtained by: patient . HPI Narrative: 67-year-old male with history of coronary artery disease status post remote CABG, status post coronary stents placed last year, here with chief complaint of nausea. Patient was here last night and evaluated in the emergency department for abdominal discomfort. He had negative diagnostic work-up including CT of the abdomen pelvis and serial cardiac enzymes. He was feeling better and was discharged home. This morning he woke up and ate some food and then took a dose of MiraLAX around 1 PM. Around 3 PM he had an episode of shaking chills. His thought that he was hypoglycemic and gave him some juice and checked his sugar and it was around 140. Is also noted to be diaphoretic and then developed nausea and vomiting. He does have some mild epigastric/substernal chest discomfort associated with the nausea. He specifically states I do not think this is my heart and feels that this is likely gastrointestinal related. Related Data Home Medications Medication Instructions Recorded Confirmed allopurinol 300 mg tablet 300 mg PO DAILY #90 tab-caps 09/23/18 11/14/22 aspirin 81 mg tablet,delayed 81 mg PO DAILY #90 tabs 09/23/18 11/14/22 release (Aspir-Low) atorvastatin 20 mg tablet (Lipitor) 20 mg PO DAILY ##90 09/23/18 11/14/22 blood sugar diagnostic (FreeStyle #200 strips 09/23/18 11/14/22 Lite Strips) metformin 1,000 mg tablet 1,000 mg PO BID #180 tab-caps 09/23/18 11/14/22 nitroglycerin 0.4 mg sublingual 0.4 mg sublingual ONCE #30 tabs 09/23/18 11/14/22 tablet (Nitrostat) losartan 50 mg tablet 50 mg PO DAILY ##90 10/17/18 11/14/22 sitagliptin phosphate 100 mg 100 mg PO DAILY #90 tab-caps 12/20/18 11/14/22 tablet (Januvia) gabapentin 100 mg capsule 300 mg PO DAILY 07/02/20 11/14/22 naproxen sodium 220 mg capsule 220 mg PO BID PRN 07/02/20 11/14/22 (Aleve) allopurinol 300 mg tablet 300 mg PO DAILY 11/13/22 11/14/22 dulaglutide 1.5 mg/0.5 mL 1.5 mg subcut 4-8XD 11/13/22 11/14/22 subcutaneous pen injector (Trulicity) icosapent ethyl 1 gram capsule 1 g PO BID 11/13/22 11/14/22 (Vascepa) melatonin 5 mg tablet 5 mg PO .QHS 11/13/22 11/14/22 tadalafil 5 mg tablet 5 mg PO DAILY 11/13/22 11/14/22 sucralfate 1 gram tablet (Carafate) 1 gm PO QACHS #14 tabs 11/14/22 11/14/22 Previous Rx's Medication Instructions Recorded allopurinol 300 mg tablet 300 mg PO DAILY #90 tab-caps 09/23/18 aspirin 81 mg tablet,delayed 81 mg PO DAILY #90 tabs 09/23/18 release (Aspir-Low) atorvastatin 20 mg tablet (Lipitor) 20 mg PO DAILY ##90 09/23/18 blood sugar diagnostic (FreeStyle #200 strips 09/23/18 Lite Strips) metformin 1,000 mg tablet 1,000 mg PO BID #180 tab-caps 09/23/18 nitroglycerin 0.4 mg sublingual 0.4 mg sublingual ONCE #30 tabs 09/23/18 tablet (Nitrostat) losartan 50 mg tablet 50 mg PO DAILY ##90 10/17/18 sitagliptin phosphate 100 mg 100 mg PO DAILY #90 tab-caps 12/20/18 tablet (Januvia) sucralfate 1 gram tablet (Carafate) 1 gm PO QACHS #14 tabs 11/14/22 Allergies Allergy/AdvReac Type Severity Reaction Status Date / Time sulfamethoxazole Allergy Intermediate Rash Unverified 11/14/22 16:49 [From Bactrim] trimethoprim [From Bactrim] Allergy Intermediate Rash Unverified 11/14/22 16:49 colchicine Allergy Skin Rash Unverified 11/14/22 16:49 metronidazole Allergy Skin Rash Unverified 11/14/22 16:49 General Stated Complaint: Chest Pain NORBERT: 3 Review of Systems All systems reviewed & are unremarkable except as noted in HPI and below Constitutional Constitutional: Denies fever(s) Cardiovascular Cardiovascular: Reports as per HPI and Denies dyspnea Respiratory Respiratory: Denies dyspnea Gastrointestinal Gastrointestinal: Reports as per HPI, Denies melena, Denies coffee ground emesis, Reports nausea and Reports vomiting PFSH All Active Problems (Updated 11/14/22 @ 02:50 by Addis Miller DO) Epigastric abdominal pain (Acute) Tendonitis of left rotator cuff (Acute) Injection: 07/02/20 Left shoulder pain (Acute) Neuropathy (Acute) Coronary artery disease (Chronic 01/30/15) CABG x 3 2009 Polyp of colon (Chronic) Overweight (Chronic) Memory impairment (Chronic) Kidney stone (Chronic) Diverticulitis of colon (Chronic) recurrent Cervical radiculopathy (Chronic 08/03/17) Abdominal pain (Chronic) Medical History Alopecia areata BPH w urinary obs/LUTS (08/03/17) Diabetes mellitus Essential hypertension (12/11/13) Gastroesophageal reflux disease Gout Hyperlipidemia (06/21/14) Surgical History History of coronary artery bypass surgery History of laparoscopic cholecystectomy (08/05/16) Status post rotator cuff repair Family History Mother No problems noted. Father No problems noted. Sister No problems noted. Brother No problems noted. Brother No problems noted. Brother No problems noted. Social History Smoking/Tobacco Use Status: Former Tobacco Use Quit Date: 09/27/94 Tobacco: How many years used: 16 Smoking risk assessment performed?: Yes Alcohol Intake: current Alcohol Intake frequency: holidays/special occasions only Drug use: Never What type of physical activity do you participate in: walking Duration: 15-30 minutes/day Frequency: 3-4 times per week Do you feel safe at home: Yes Do you feel safe in your relationship?: Yes Exam Const General: cooperative and uncomfortable Orientation: alert and awake HENMT Mouth: moist mucous membranes Eyes Conjunctivae: normal conjunctivae Sclera: normal sclerae Neck Neck: trachea midline Resp Auscultation: clear to auscultation bilaterally, no rales, no rhonchi and no wheezes Cardio Rate: regular rate and not tachycardic Rhythm: regular rhythm GI Palpation: soft, not firm, no guarding, no masses, not rigid and nontender Auscultation: normal bowel sounds Skin General skin exam: no rashes or lesions noted Neuro General: patient alert, patient awake and tone normal Extrem General: no edema Psych Appearance: grossly normal Mental Status: mental status grossly normal Speech and Movement: speech and movement normal Course Vital Signs Vital signs: Vital Signs Temperature 36.5 C 11/14/22 16:51 Pulse 102 H 11/14/22 16:51 Respiratory Rate 11/14/22 16:51 Blood Pressure 101/59 L 11/14/22 16:51 Pulse Oximetry 97 11/14/22 16:51 Temperature 36.5 C 11/14/22 16:51 Temperature Source Tympanic 11/14/22 16:51 Pulse 102 H 11/14/22 16:51 Respiratory Rate 22 11/14/22 16:51 Respiratory Effort Normal 11/14/22 17:15 Respiratory Depth Normal 11/14/22 17:15 Respiratory Pattern Normal 11/14/22 17:15 Blood Pressure 101/59 L 11/14/22 16:51 Pulse Oximetry 97 11/14/22 16:51 Oxygen Delivery Method Room Air 11/14/22 16:51 Oxygen Flow Rate 0 11/14/22 16:51
[2022-11-14] MEDS: Ondansetron 4 MG/2 ML VIAL IVP (17:28)
[2022-11-14 17:39] LABS: Abs Immature Grans 0.06 10^3/uL (0.0-0.06); Absolute Basophil Count 0.01 10^3/uL (0.0-0.2); Absolute Eosinophil Count 0.06 10^3/uL (0.0-0.7); Absolute Lymphocyte Count 0.42 10^3/uL (1.2-3.4); Absolute Monocyte Count 0.11 10^3/uL (0.1-0.8); Absolute Neutrophil Count 4.96 10^3/uL (1.2-6.7); Basophils % 0.2; Eosinophils % 1.1; HCT 41.6 % (40.0-50.0); HGB 14.3 g/dL (13.5-17.5); Immature Grans % 1.1; Lymphocytes % 7.5; MCH 31.4 pg (27.0-33.0); MCHC 34.4 % (32.0-36.0); MCV 91 fL (80-95); Neutrophils % 88.1; Platelet Count 130 10^3/uL (130-400); RBC 4.55 10^6/uL (4.36-5.78); RDW 13.3 % (11.8-14.1); RDW-SD 44.6 fL; WBC 5.62 10^3/uL (4.4-10.8)
[2022-11-14 17:53] LABS: PTT Activated 21.8 sec (21.5-31.9)
[2022-11-14 17:57] LABS: ALT 32 U/L (16-63); AST 35 U/L (15-37); Alkaline Phosphatase 73 U/L (46-116); Anion Gap 13.2 mmol/L (3-11); BUN 13 mg/dL (7-18); Bilirubin, Total 1.3 mg/dL (0.2-1.0); CO2 22.8 mmol/L (21.0-32.0); CREATININE 1.4 mg/dL (0.70-1.30); Calcium 9.3 mg/dL (8.5-10.1); Chloride 101 mmol/L (98-107); Estimated GFR 54.41 (mL/min/1.73m2); Glucose 179 mg/dL (74-106); Magnesium 1.7 mg/dL (1.8-2.4); Potassium 4.1 mmol/L (3.5-5.1); Sodium 137 mmol/L (136-145); Total Protein 7.4 g/dL (6.4-8.2); Troponin I < 50 ng/L (<or=60)
--- NOTE | 2022-11-14 18:15 | DI.CT_ITS ---
Exam(s) CT CHEST PE CTA EXAM: CT CHEST PE CTA CLINICAL HISTORY: hypoxia, chest pain. TECHNIQUE: Imaging Protocol: Axial CT angiography was performed with multi-slice acquisition and mu lti-planar reconstructions as well as axial, coronal and sagittal MIP reconstructions. CONTRAST MATERIAL: Intravenous: Omnipaque 350 Contrast volume:100 ml COMPARISON: CT CT CHEST/ABD/PEL W from 11/13/2022 FINDINGS: Pulmonary Arteries: No evidence of filling defect to suggest pulmonary emboli. Tracheobronchial tree: Patent where visualized. Mediastinum and Karla: Mildly enlarged mediastinal lymph nodes. Pulmonary parenchyma: Mild ground-glass opacities right lower lobe.no consolidation or dominant measu rable mass. Pleura: No effusion or pneumothorax. Heart: The heart is not dilated. S/P CABG. Coronary artery calcifications. Aorta: Thoracic aorta non-dilated. No aneurysm. No dissection. Upper abdomen: Unremarkable. Bones: Sternal wires. Degenerative changes spine. Tubes, Catheters, and Lines: IMPRESSION: No evidence of pulmonary embolism. Mild right lower lobe ground-glass opacities. RADIATION DOSE DELIVERED: 461.22mGy.cm Total DLP DATA REPOSITORY: All CT scans at this facility are submitted to the National Radiology Data Registry (NRDR) Dose Index Registry (DIR) with the [employer] (ACR). RADIATION OPTIMIZATION: All CT scans at this facility use at least one of these dose optimization te chniques: automated exposure control; mA and/or kV adjustment per patient size (includes targeted exa ms where dose is matched to clinical indication); or iterative reconstruction.
[2022-11-14 18:26] LABS: Source Nasal/Nares
[2022-11-14] MEDS: Normal Saline - Diluent 50 ML VIAL IJ (18:34)
[2022-11-14 18:58] LABS: COVID-19 PCR Negative (Negative)
--- NOTE | 2022-11-14 19:37 | DI.VRAD_ITS ---
PROCEDURE INFORMATION: Exam: CTA Chest With Contrast Exam date and time: 11/14/2022 6:33 PM Age: 67 years old Clinical indication: Other: Hypoxia, chest pain TECHNIQUE: Imaging protocol: Computed tomographic angiography of the chest with contrast. 3D rendering (Not supervised by radiologist): MIP and/or 3D reconstructed images were created by the technologist. Total images: 1877 Contrast material: 350; Contrast volume: 100 ml; Contrast route: INTRAVENOUS (IV); COMPARISON: CT CHEST/ABD/PEL W 11/13/2022 11:38 PM FINDINGS: Pulmonary arteries: No filling defect in the pulmonary arterial tree. Aorta: No aortic aneurysm. No aortic dissection. Trachea: Tiny mucous polyp in the anterior trachea. Lungs: Stable 3 mm lateral right basilar nodule (image 83 of series 4). No consolidation. Persistent right lower lobe paraspinal ground-glass opacity and less notably laterally at the right lung base. Pleural spaces: No pneumothorax. No pleural effusion. Heart: No pericardial effusion. Coronary arteries: Significant coronary artery calcification. Lymph nodes: There are stable small mediastinal nodes, short axis diameter measuring up to 1 cm. No hilar adenopathy. No axillary adenopathy. Liver: Hepatic steatosis. Bones/joints: Prior median sternotomy. Thoracic kyphosis and spondylosis. Soft tissues: Extrathoracic soft tissues are unremarkable. IMPRESSION: 1. No PE. 2. Stable right lower lobe ground-glass disease. 3. Stable 3 mm right basilar nodule.For patients at low risk (minimal or absent history of smoking and of other known risk factors), no routine follow-up is indicated. For patients at high risk (history of smoking or of other known risk factors), consider optional CT Chest at 12 months. (Reference: Leo) REFERENCES: Leo Dalton, et al. Guidelines for Management of Incidental Pulmonary Nodules Detected on CT Images: From the Fleischner Society 2017. Radiology. 2017;284(1):228-243. Dictated and Authenticated by: Johnson Nelson MD. Ordering:DAVIS Wagner MD
[2022-11-14] MEDS: Amoxicillin 875/Clav. 125 TAB PO (19:52)
[2022-11-14 20:32] LABS: Troponin I < 50 ng/L (<or=60)
--- NOTE | 2022-11-14 21:53 | W.EDPROG ---
Date of service: 11/14/22 Time of Service: 21:45 Medical Decision Making 1999 --please see Dr. Rivera's note for initial presentation, exam and plan. Case endorsed to follow-up on repeat troponin and if patient continues to feel better, will plan for discharge home with treatment of possible pneumonia with Augmentin. 2199 --repeat troponin negative. Patient reassessed at bedside and he feels much better. Patient was seen here yesterday for epigastric pain and had a CT chest abdomen pelvis which was essentially unremarkable for acute findings. He states after discharged here earlier this morning he was able to sleep a few hours and eat and his epigastric pain had near resolved. He states this afternoon while sitting at the computer he developed sudden onset of shaking chills followed by 2 episodes of vomiting. He denies any fever, cough, chest pain, shortness of breath, or diarrhea. He was given Zofran here and feels much better. His repeat CT chest here today notes a stable right lower lobe groundglass disease. Discussed that patient may also have a GI component to his symptoms or this may be related to a possible pneumonia. Patient does feel comfortable going home. He was given Zofran and Augmentin to go in addition to prescriptions for both sent electronically to his pharmacy. Advised to follow up with the primary care doctor for re-evaluation. Usual and customary return precautions given prior to discharge. Medical Records Medical records reviewed: Yes I reviewed the patient's medical records. Medical records narrative: 11/13/22 CT Chest With Contrast; Diagnostic Exam date and time: 11/13/2022 11:38 PM Age: 67 years old Clinical indication: Lower chest, upper abd pain, radiating b/l to back, r/o pneumonia, gastritis, pancreatitis; Prior surgery; date: 6+ months: Open heart TECHNIQUE: Imaging protocol: Diagnostic computed tomography of the chest with contrast. 3D rendering (Not supervised by radiologist): MIP and/or 3D reconstructed images were created by the technologist. Radiation optimization: All CT scans at this facility use at least one of these dose optimization techniques: automated exposure control; mA and/or kV adjustment per patient size (includes targeted exams where dose is matched to clinical indication); or iterative reconstruction. Contrast material: OMNIPAQUE 350; Contrast volume: 100 ml; Contrast route: INTRAVENOUS (IV);? COMPARISON: CT ABD PELVIS WITH CONTRAST 01/21/2018 10:18 AM FINDINGS: Lungs: Area of mild infiltrate or atelectasis within the posteromedial right lower lobe. Pleural spaces: No pleural fluid collection. No pneumothorax. Heart: No pericardial effusion.? Coronary artery calcification.? Lymph nodes: No enlarged lymph nodes. Vasculature: Normal caliber thoracic aorta without dissection or aneurysm. Bones/joints: Spinal degenerative changes. Prior median sternotomy. Soft tissues: Unremarkable. IMPRESSION: 1.? Area of mild infiltrate or atelectasis within the posteromedial right lower lobe. 2.? No pleural fluid collection. CT Abdomen And Pelvis With Contrast Exam date and time: 11/13/2022 11:38 PM Age: 67 years old Clinical indication: Lower chest, upper abd pain, radiating b/l to back, r/o pneumonia, gastritis, pancreatitis; Prior surgery; date: 6+ months: Open heart TECHNIQUE: Imaging protocol: Computed tomography of the abdomen and pelvis with contrast. 3D rendering (Not supervised by radiologist): MIP and/or 3D reconstructed images were created by the technologist. Radiation optimization: All CT scans at this facility use at least one of these dose optimization techniques: automated exposure control; mA and/or kV adjustment per patient size (includes targeted exams where dose is matched to clinical indication); or iterative reconstruction. Contrast material: OMNIPAQUE 350; Contrast volume: 100 ml; Contrast route: INTRAVENOUS (IV);? COMPARISON: CT ABD PELVIS WITH CONTRAST 01/21/2018 10:18 AM FINDINGS: Liver: Normal. No mass. Gallbladder and bile ducts: Status post cholecystectomy. No biliary tract dilatation. Pancreas: Normal. No ductal dilation. Spleen: Splenomegaly (15 cm CC dimension). Adrenal glands: Normal. No mass. Kidneys and ureters: No hydronephrosis. No calcified renal or ureteral stones. No perinephric stranding or perinephric fluid. Stomach and bowel: The majority of the left colon is under-distended and wall thickness cannot be accurately assessed. A colitis cannot be excluded. Scattered colon diverticuli without evidence of diverticulitis. Appendix: Normal appendix. Intraperitoneal space: No free air. No significant fluid collection. Vasculature: The abdominal aorta is normal in caliber without aneurysm or dissection. Lymph nodes: No enlarged lymph nodes. Urinary bladder: Unremarkable as visualized. Reproductive: Enlarged prostate gland measuring 5 cm transversely. Bones/joints: Spinal degenerative changes. Soft tissues: Fat-containing inguinal hernias. IMPRESSION: 1.? The majority of the left colon is under-distended and wall thickness cannot be accurately assessed. A colitis cannot be excluded. 2.? Scattered colon diverticuli without evidence of diverticulitis. 3.? Enlarged prostate gland measuring 5 cm transversely. 4.? Splenomegaly (15 cm CC dimension). 5.? No CT evidence of gastritis or pancreatitis. 6.? Otherwise, no acute intra-abdominal or pelvic process. Imaging Data Radiologic Study: Radiologist's impression: CTA Chest With Contrast Exam date and time: 11/14/2022 6:33 PM Age: 67 years old Clinical indication: Other: Hypoxia, chest pain TECHNIQUE: Imaging protocol: Computed tomographic angiography of the chest with contrast. 3D rendering (Not supervised by radiologist): MIP and/or 3D reconstructed images were created by the technologist. Total images: 1877 Contrast material: 350; Contrast volume: 100 ml; Contrast route: INTRAVENOUS (IV);? COMPARISON: CT CHEST/ABD/PEL W 11/13/2022 11:38 PM FINDINGS: Pulmonary arteries: No filling defect in the pulmonary arterial tree. Aorta: No aortic aneurysm. No aortic dissection. Trachea: Tiny mucous polyp in the anterior trachea. Lungs: Stable 3 mm lateral right basilar nodule (image 83 of series 4). No consolidation. Persistent right lower lobe paraspinal ground-glass opacity and less notably laterally at the right lung base. Pleural spaces: No pneumothorax. No pleural effusion. Heart: No pericardial effusion. Coronary arteries: Significant coronary artery calcification. Lymph nodes: There are stable small mediastinal nodes, short axis diameter measuring up to 1 cm. No hilar adenopathy. No axillary adenopathy. Liver: Hepatic steatosis. Bones/joints: Prior median sternotomy. Thoracic kyphosis and spondylosis. Soft tissues: Extrathoracic soft tissues are unremarkable. IMPRESSION: 1. No PE. 2. Stable right lower lobe ground-glass disease. 3. Stable 3 mm right basilar nodule.For patients at low risk (minimal or absent history of smoking and of other known risk factors), no routine follow-up is indicated. For patients at high risk (history of smoking or of other known risk factors), consider optional CT Chest at 12 months. (Reference: Leo) Lab Data Lab results reviewed: Yes I reviewed the patient's lab results. ECG Data Attestation: I personally reviewed and interpreted this ECG (s) as follows: Interpretation: rate of 89, sinus, normal axis, no stemi. Sign Out Sign Out Data: Sign Out Comment: followup delta troponin and reassess patient for disposition. Plan to treat infiltrate with augmentin. Last updated by Bernard Rivera MD at 11/14/22 19:47 Discharge Plan Disposition Patient Disposition: Home Discharge Details Clinical Impression: Pneumonia, Epigastric abdominal pain, Vomiting Primary Care Provider: Veronica Campbell ED Provider: Addis Miller Home Meds and New Rx's Prescriptions: New amoxicillin-pot clavulanate 875-125 mg tablet 1 tab PO BID 7 Days Qty: 14 0RF ondansetron 4 mg tablet,disintegrating 4 mg PO TID PRN (Reason: nausea and vomiting) Qty: 6 0RF Continued gabapentin 100 mg capsule 300 mg PO DAILY naproxen sodium [Aleve] 220 mg capsule 220 mg PO BID PRN allopurinol 300 mg tablet 300 mg PO DAILY Qty: 90 3RF atorvastatin [Lipitor] 20 mg tablet 20 mg PO DAILY Qty: 90 3RF (DME) FreeStyle Lite Strips strip 1 ea Miscellaneous TID Qty: 200 6RF Rx Instructions: One twice a day metformin 1,000 mg tablet 1,000 mg PO BID Qty: 180 3RF nitroglycerin [Nitrostat] 0.4 mg tablet, sublingual 0.4 mg Sublingual ONCE MDD 2 Qty: 30 0RF Rx Instructions: Take at onset of chest pain aspirin [Aspir-Low] 81 mg tablet,delayed release (DR/EC) 81 mg PO DAILY Qty: 90 4RF losartan 50 mg tablet 50 mg PO DAILY Qty: 90 3RF Januvia 100 mg tablet 100 mg PO DAILY Qty: 90 4RF allopurinol 300 mg tablet 300 mg PO DAILY tadalafil 5 mg tablet 5 mg PO DAILY Patient Comments: Take 1 tablet by mouth once a day as needed melatonin 5 mg tablet 5 mg PO .QHS Patient Comments: Take 1 tablet by mouth at bedtime icosapent ethyl [Vascepa] 1 gram capsule 1 g PO BID Trulicity 1.5 mg/0.5 mL pen injector 1.5 mg SUBCUT 4-8XD sucralfate [Carafate] 1 gram tablet 1 gm PO QACHS Qty: 14 0RF Discharge Instructions Instructions: Acute Nausea and Vomiting (ED), Pneumonia (ED), Epigastric Pain (ED) Additional Instructions: Your blood tests and EKG today are reassuring today and show no evidence of acute concerning or significant findings. Your imaging shows that you may have a right-sided pneumonia. Your nausea and vomiting and epigastric pain may be secondary to this or due to another viral process. Drink plenty of fluids and get plenty of rest. Take the Zofran as needed and directed for nausea and vomiting. A prescription for an antibiotic has been sent electronically to your pharmacy to take as directed until finished.. Follow-up with your primary care doctor in 1 week. Return to the emergency department with any worsening or new concerning symptoms. Discharge Data Discharge Date/Time-TO BE ENTERED AT DEPARTURE: 11/14/22 22:21 Discharge Physician: Addis Miller
[2022-11-14 21:59] LABS: Lipase 40 U/L (16-77)
[2022-11-14] MEDS: Amox. 875/Clav. 125, 2 TABS/BTL 1 TAB PO (22:00)
[2022-11-14] MEDS: Ondansetron O.D.T. 4 MG TABEF, 3 TABS/BTL PO (22:00)
== END 2022-11-14 22:21 | disposition home or self-care (01) ==
PROVIDERS: Student in an Organized Health Care Education/Training Program; Emergency Provider Physician Assistant; PCP Nurse Practitioner Family
DX: J18.9 Pneumonia, unspecified organism (principal); R10.13 Epigastric pain; I25.10 Atherosclerotic heart disease of native coronary artery without angina pectoris; E11.40 Type 2 diabetes mellitus with diabetic neuropathy, unspecified; I10 Essential (primary) hypertension; R11.2 Nausea with vomiting, unspecified; Z79.82 Long term (current) use of aspirin; Z79.84 Long term (current) use of oral hypoglycemic drugs; Z79.4 Long term (current) use of insulin; Z20.822 Contact with and (suspected) exposure to COVID-19; Z95.1 Presence of aortocoronary bypass graft; Z87.891 Personal history of nicotine dependence
CPT/HCPCS: 36416; 71275; 80053; 82962; 83690; 87635; 93005; 96361; 96374; 99285; 83605; 83735; 84484; 85025; 85730; 93010; J1170; J2405

== ENCOUNTER 2023-03-09 14:56 | Outpatient (REF) | payer MEDICARE, BC, SELFPAY ==
[2023-03-09 15:32] LABS: HCT 36.2 % (40.0-50.0); HGB 12.3 g/dL (13.5-17.5); MCH 31.4 pg (27.0-33.0); MCV 92 fL (80-95); Platelet Count 125 10^3/uL (130-400); RBC 3.92 10^6/uL (4.36-5.78); RDW 13.8 % (11.8-14.1); RDW-SD 46.3 fL; WBC 6.24 10^3/uL (4.4-10.8)
[2023-03-09 16:05] LABS: Calculated LDL 51 mg/dL (<100); Cholesterol 102 mg/dL (<200); HDL Cholesterol 31 mg/dL (40-60); Triglyceride 104 mg/dL (<150)
[2023-03-09 17:39] LABS: ALT 26 U/L (16-63); AST 15 U/L (15-37); Albumin 4.1 g/dL (3.4-5.0); Alkaline Phosphatase 72 U/L (46-116); Anion Gap 10.8 mmol/L (3-11); BUN 20 mg/dL (7-18); Bilirubin, Total 0.7 mg/dL (0.2-1.0); CO2 21.2 mmol/L (21.0-32.0); CREATININE 1.2 mg/dL (0.70-1.30); Calcium 9.4 mg/dL (8.5-10.1); Chloride 107 mmol/L (98-107); Estimated GFR 65.46 (mL/min/1.73m2); Glucose 162 mg/dL (74-106); Potassium 4.9 mmol/L (3.5-5.1); Sodium 139 mmol/L (136-145); Total Protein 7.6 g/dL (6.4-8.2)
== END 2023-03-09 14:57 | disposition home or self-care (01) ==
LOC: NCHCN 14:56
PROVIDERS: PCP Nurse Practitioner Family; Visit Provider Nurse Practitioner Family
DX: E78.5 Hyperlipidemia, unspecified (principal); N40.0 Benign prostatic hyperplasia without lower urinary tract symptoms; I10 Essential (primary) hypertension
CPT/HCPCS: 80053; 80061; 84153; 85027

== ENCOUNTER 2023-05-26 21:22 | Outpatient (REF) | payer MEDICARE, BC, SELFPAY ==
[2023-05-26 21:34] LABS: ESR 33 mm/hr (0-20)
[2023-05-26 21:37] LABS: HCT 33.9 % (40.0-50.0); HGB 11.6 g/dL (13.5-17.5); MCH 30.5 pg (27.0-33.0); MCHC 34.2 % (32.0-36.0); MCV 89 fL (80-95); MPV 10.5 fL (8.0-11.0); Platelet Count 109 10^3/uL (130-400); RDW 13.8 % (11.8-14.1); RDW-SD 44.9 fL; WBC 6.37 10^3/uL (4.4-10.8)
[2023-05-26 21:50] LABS: Iron 107 ug/dL (65-175); Total Iron Binding Capacity 371 ug/dL (250-450); Transferrin Sat 29 % (20-55)
[2023-05-26 21:57] LABS: ALT 18 U/L (16-63); AST 16 U/L (15-37); Albumin 3.3 g/dL (3.4-5.0); Alkaline Phosphatase 67 U/L (46-116); Anion Gap 12.1 mmol/L (3-11); BUN 19 mg/dL (7-18); Bilirubin, Total 0.7 mg/dL (0.2-1.0); CO2 22.9 mmol/L (21.0-32.0); CREATININE 1.2 mg/dL (0.70-1.30); Calcium 8.8 mg/dL (8.5-10.1); Chloride 106 mmol/L (98-107); Estimated GFR 65.06 (mL/min/1.73m2); Glucose 141 mg/dL (74-106); NT-proBNP 107 pg/mL (<300); Potassium 4.4 mmol/L (3.5-5.1); Sodium 141 mmol/L (136-145); TSH (W/Ref FT4) 4.62 uIU/mL (0.36-3.74)
[2023-05-26 22:24] LABS: FREE T4 0.99 ng/dL (0.76-1.46)
[2023-05-26 23:00] LABS: Hemoglobin A1C 6.3 % (<5.7)
[2023-05-27 20:01] LABS: Rheumatoid Factor <8.6 IU/mL (<12.0)
[2023-05-28 16:54] LABS: ANA Interpretation Positive (Negative); ANA Titer Pattern 1:80 Speckled
== END 2023-05-26 21:23 | disposition home or self-care (01) ==
LOC: NCHCN 21:22
PROVIDERS: PCP Nurse Practitioner Family; Visit Provider Nurse Practitioner Family
DX: R53.83 Other fatigue (principal); R60.9 Edema, unspecified
CPT/HCPCS: 80053; 85027; 85652; 83036; 83540; 83550; 83880; 84439; 84443; 86038; 86431

== ENCOUNTER 2023-06-01 21:13 | Outpatient (REF) | payer MEDICARE, BC, SELFPAY ==
[2023-06-01 21:26] LABS: Reticulocyte 2.4 % (0.5-2.4)
[2023-06-01 21:49] LABS: Ferritin 158 ng/mL (26-388); Magnesium 1.4 mg/dL (1.8-2.4); Vitamin B12 550 pg/mL (193-986)
[2023-06-01 22:11] LABS: NT-proBNP 226 pg/mL (<300)
[2023-06-04 14:10] LABS: Albumin 51.9 % (55.8-66.1); Albumin g/dL 3.9 g/dL (3.6-5.2); Comment (See Note); Total Protein 7.5 g/dL (6.3-8.2)
[2023-06-04 14:39] LABS: Immunotyping, Serum (See Note)
== END 2023-06-01 21:14 | disposition home or self-care (01) ==
LOC: NCHCN 21:13
PROVIDERS: PCP Nurse Practitioner Family; Visit Provider Nurse Practitioner Family
DX: D64.9 Anemia, unspecified (principal); E83.42 Hypomagnesemia; E88.09 Other disorders of plasma-protein metabolism, not elsewhere classified; R60.9 Edema, unspecified
CPT/HCPCS: 82607; 82728; 83735; 83880; 84165; 85045; 86320

== ENCOUNTER 2023-07-14 13:56 | Outpatient (REF) | payer MEDICARE, BC, SELFPAY ==
[2023-07-14 14:47] LABS: Abs Immature Grans 0.04 10^3/uL (0.0-0.06); Absolute Basophil Count 0.07 10^3/uL (0.0-0.2); Absolute Eosinophil Count 0.34 10^3/uL (0.0-0.7); Absolute Monocyte Count 0.55 10^3/uL (0.1-0.8); Absolute Neutrophil Count 3.75 10^3/uL (1.2-6.7); Basophils % 1.1; Eosinophils % 5.3; HCT 38.3 % (40.0-50.0); HGB 12.9 g/dL (13.5-17.5); Immature Grans % 0.6; Lymphocytes % 26.4; MCH 30.4 pg (27.0-33.0); MCHC 33.7 % (32.0-36.0); MCV 90 fL (80-95); MPV 10.8 fL (8.0-11.0); Monocytes % 8.5; Neutrophils % 58.1; Platelet Count 125 10^3/uL (130-400); RBC 4.25 10^6/uL (4.36-5.78); RDW 14.1 % (11.8-14.1); WBC 6.45 10^3/uL (4.4-10.8)
[2023-07-14 15:01] LABS: Hemoglobin A1C 6.2 % (<5.7)
[2023-07-14 15:04] LABS: Iron 55 ug/dL (65-175); Total Iron Binding Capacity 302 ug/dL (250-450); Transferrin Sat 18 % (20-55)
[2023-07-14 15:17] LABS: ALT 24 U/L (16-63); AST 17 U/L (15-37); Albumin 3.2 g/dL (3.4-5.0); Alkaline Phosphatase 83 U/L (46-116); Anion Gap 10.8 mmol/L (3-11); BUN 19 mg/dL (7-18); Bilirubin, Total 0.4 mg/dL (0.2-1.0); CO2 22.2 mmol/L (21.0-32.0); CREATININE 1.3 mg/dL (0.70-1.30); Calcium 9.5 mg/dL (8.5-10.1); Chloride 106 mmol/L (98-107); Ferritin 143 ng/mL (26-388); Glucose 213 mg/dL (74-106); Potassium 4.8 mmol/L (3.5-5.1); Sodium 139 mmol/L (136-145); TSH (W/Ref FT4) 6.19 uIU/mL (0.36-3.74); Total Protein 7.3 g/dL (6.4-8.2)
[2023-07-14 15:49] LABS: FREE T4 0.96 ng/dL (0.76-1.46); LDH 150 U/L (85-227)
== END 2023-07-14 13:57 | disposition home or self-care (01) ==
LOC: NCHCN 13:56
PROVIDERS: PCP Nurse Practitioner Family; Visit Provider Nurse Practitioner Family
DX: D64.9 Anemia, unspecified (principal); R59.9 Enlarged lymph nodes, unspecified; Z79.899 Other long term (current) drug therapy
CPT/HCPCS: 80053; 82232; 82728; 83036; 83540; 83550; 83615; 84439; 84443; 85025

== ENCOUNTER 2023-09-13 16:48 | Outpatient (REF) | payer MEDICARE, BC, SELFPAY ==
[2023-09-13 14:44] LABS: HCT 36.4 % (40.0-50.0); HGB 12.3 g/dL (13.5-17.5); MCH 29.9 pg (27.0-33.0); MCHC 33.8 % (32.0-36.0); MCV 88 fL (80-95); MPV 11.2 fL (8.0-11.0); Platelet Count 112 10^3/uL (130-400); RBC 4.12 10^6/uL (4.36-5.78); RDW 14.4 % (11.8-14.1); RDW-SD 45.9 fL; WBC 5.64 10^3/uL (4.4-10.8)
[2023-09-13 15:14] LABS: ALT 29 U/L (16-63); AST 18 U/L (15-37); Albumin 3.6 g/dL (3.4-5.0); Alkaline Phosphatase 79 U/L (46-116); Anion Gap 10.9 mmol/L (3-11); BUN 17 mg/dL (7-18); Bilirubin, Total 0.6 mg/dL (0.2-1.0); CO2 23.1 mmol/L (21.0-32.0); CREATININE 1.2 mg/dL (0.70-1.30); Calcium 9.6 mg/dL (8.5-10.1); Chloride 107 mmol/L (98-107); Estimated GFR 65.06 (mL/min/1.73m2); Glucose 168 mg/dL (74-106); Potassium 4.7 mmol/L (3.5-5.1); Sodium 141 mmol/L (136-145); TSH (W/Ref FT4) 1.78 uIU/mL (0.36-3.74); Total Protein 7.5 g/dL (6.4-8.2)
--- OUTSIDE RECORDS SUMMARY | 2023-09-13 16:52 | XMS_ITS | Continuity of Care Document ---
Author Name Unknown Organization [facility] Address [address] [place] [address] Care Team Providers Care Psychology Technician Name Role Phone MALIA MACK Primary Care Physician Encounter [facility] NBR [id number] Date(s): 12/01/22 - 12/01/[address] [address]- [place] Discharge Disposition: Home or Self Care Attending Physician: MALIA MACK Admitting Physician: MALIA MACK Allergies, Adverse Reactions, Alerts Substance Reaction Severity Status Flagyl 1 Unknown Active 1colchicine Assessment and Plan Future Scheduled Tests Radiology* MRI Shoulder w/o Contrast Right 12/01/22 * MRI Spine Cervical w/o Contrast 12/01/22 Medications allopurinol 100 mg oral tablet 100 mg = 1 tab, Oral, Daily, # 30 tab, 0 Refill(s) Start Date: 12/01/22 Status: Ordered aspirin 81 mg oral delayed release tablet 81 mg = 1 tab, Oral, Daily, # 30 tab, 0 Refill(s) Start Date: 12/01/22 Status: Ordered atorvastatin 20 mg oral tablet 20 mg = 1 tab, Oral, Daily, # 30 tab, 0 Refill(s) Start Date: 12/01/22 Status: Ordered gabapentin 300 mg oral capsule 300 mg = 1 cap, Oral, every day at bedtime, # 30 cap, 0 Refill(s) Start Date: 12/01/22 Status: Ordered glipiZIDE 2.5 mg oral tablet, extended release 2.5 mg = 1 tab, Oral, Daily, # 30 tab, 0 Refill(s) Start Date: 12/01/22 Status: Ordered Icosapent Ethyl 0.5 g oral capsule 2 g = 4 cap, Oral, BID, Vescepa, 0 Refill(s) Start Date: 12/01/22 Status: Ordered losartan 25 mg oral tablet 25 mg = 1 tab, Oral, Daily, # 30 tab, 0 Refill(s) Start Date: 12/01/22 Status: Ordered melatonin 5 mg oral tablet 5 mg = 1 tab, Oral, every day at bedtime, PRN as needed for insomnia, # 60 tab, 0 Refill(s) Start Date: 12/01/22 Status: Ordered metFORMIN 1000 mg oral tablet 1,000 mg = 1 tab, Oral, BID, # 60 tab, 0 Refill(s) Start Date: 12/01/22 Status: Ordered tadalafil 5 mg =, Oral, Daily, 0 Refill(s) Start Date: 12/01/22 Status: Ordered Problem List Condition Confirmation Course Effective Dates Status Health St [facility] Informant Diabetes Confirmed Active Gout Confirmed Active High cholesterol Confirmed Active High blood pressure Confirmed Active Joint pain Confirmed Active Procedures Procedure Date Related Diagnosis Body Site Status Arterial stent 2020 Complete d Removal of gallbladder 2012 Co mpleted Triple coronary bypass 2009 Co mpleted Procedure on upper arm 2 2005 Completed Rotator cuff repair 2004 Com pleted 1x 5 2fatty lump removed from right arm 3LEFT Results Radiology Reports * Exam Date Time Procedure Performing Provider Status 12/01/22 11:08 AM XR Spine Cervical 2 or 3 Views Selina Dias rn; Auth (Verified) Notes: (XR Spine Cervical 2 or 3 Views) Reason For Exam: neck pain XR Spine Cervical 2 or 3 Views EXAM DESCRIPTION: XR Spine Cervical 2 or 3 Views 12/01/2022 INDICATION: NECK PAIN COMPARISON: None IMPRESSION: No acute fracture or or subluxation. Prevertebral soft tissues are within normal limits Spondylotic changes in the mid-lower cervical region with intervertebral disc space narrowing and endplate osteophyte formation. Scattered facet arthritic changes bilaterally. Soft tissue calcifications in the mid-upper neck bilaterally suspicious for carotid vascular calcifications. JOB #: [id number] Final Signed by: Pablito Arboleda MD Signed (Electronic Signature): 12/01/2022 11:21 am * Exam Date Time Procedure Performing Provider Status 12/01/22 11:08 AM XR Shoulder Complete 2+ Views Right Selina Sanchez; Auth (Verified) Notes: (XR Shoulder Complete 2+ Views Right) Reason For Exam: right shoulder pain XR Shoulder Complete 2+ Views Right EXAM DESCRIPTION: XR Shoulder Complete 2+ Views Right 12/01/2022 INDICATION: RIGHT SHOULDER PAIN COMPARISON: None IMPRESSION: No acute fracture or dislocation AC joint and glenohumeral joint arthritic changes with joint space narrowing Small focal sclerotic lesion involving the right humeral head likely reflecting bone island. JOB #: [id number] Final Signed by: Pablito Arboleda MD Signed (Electronic Signature): 12/01/2022 11:17 am Social History Social History Type Response Tobacco Former tobacco user Tobacco Use:. 15 year(s). 1 Sex Male 1Quit in 1980 XR Shoulder - right GE 2 Views * Pablito Arboleda MD: VERIFY, VERIFY Event Display: Report EXAM DESCRIPTION: XR Shoulder Complete 2+ Views Right 12/01/2022 INDICATION: RIGHT SHOULDER PAIN COMPARISON: None IMPRESSION: No acute fracture or dislocation AC joint and glenohumeral joint arthritic changes with joint space narrowing Small focal sclerotic lesion involving the right humeral head likely reflecting bone island. JOB #: [id number] Final Signed by: Pablito Arboleda MD Signed (Electronic Signature): 12/01/2022 11:17 am XR Cervical spine 2 or 3 Views * Pablito Arboleda MD: VERIFY, VERIFY Event Display: Report EXAM DESCRIPTION: XR Spine Cervical 2 or 3 Views 12/01/2022 INDICATION: NECK PAIN COMPARISON: None IMPRESSION: No acute fracture or or subluxation. Prevertebral soft tissues are within normal limits Spondylotic changes in the mid-lower cervical region with intervertebral disc space narrowing and endplate osteophyte formation. Scattered facet arthritic changes bilaterally. Soft tissue calcifications in the mid-upper neck bilaterally suspicious for carotid vascular calcifications. JOB #: [id number] Final Signed by: Pablito Arboleda MD Signed (Electronic Signature): 12/01/2022 11:21 am Patient Care team information Care Team Personnel Name: MALIA MACK Position: No Access Member Role: Primary Care Physician Address: Address: [address] [place] [address]- Care Team Related Persons Name: OSITO RAINEY Address: Home [address] [facility] [place], [id number]
--- OUTSIDE RECORDS SUMMARY | 2023-09-13 16:52 | XMS_ITS | Continuity of Care Document ---
Author Name Unknown Organization [facility] Ambulatory Clinics Address [address] [place] [address] Care Team Providers Care Business Applications Developer Name Role Phone MALIA MACK Primary Care Physician Encounter [facility] NBR [id number] Date(s): 03/09/23 - 03/09/23 [facility] Ambulatory Clinics [address] [place], [place] [address] Encounter Diagnosis Status post right rotator cuff repair(Discharge Diagnosis) - 03/09/23 Discharge Disposition: Home or Self Care Attending Physician: Lisbeth Mcclure SALES DEPARTMENT MANAGER, Allergies, Adverse Reactions, Alerts Substance Reaction Severity Status meperidine Stomach upset Moderate Active morphine Stomach upset Moderate Active Flagyl 1 Rash Mild Active 1colchicine Assessment and Plan Future Appointments Functional Status 03/09/23 Other exposure to Infectious Disease Non e Medications acetaminophen 650 mg oral tablet, extended release 1,300 mg = 2 tab, Oral, every 8 hr, PRN as needed for pain, # 84 tab, 0 Refill(s), Pharmacy: [facility], 178, cm, 02/23/23 11:05:00 EDT, Height/Length Dosing, 98, kg, 02/23/23 11:05:00 EDT, Weight Dosing Start Date: 02/25/23 Status: Ordered allopurinol 100 mg oral tablet 100 mg = 1 tab, Oral, Daily, # 30 tab, 0 Refill(s) Start Date: 12/01/22 Status: Ordered aspirin 81 mg oral delayed release tablet 81 mg = 1 tab, Oral, Daily, # 30 tab, 0 Refill(s) Start Date: 12/01/22 Status: Ordered atorvastatin 20 mg oral tablet 20 mg = 1 tab, Oral, every evening, # 30 tab, 0 Refill(s) Start Date: 12/01/22 Status: Ordered celecoxib 200 mg oral capsule 200 mg = 1 cap, Oral, BID, # 28 cap, 0 Refill(s), Pharmacy: [facility], 178, cm, 02/23/23 11:05:00 EDT, Height/Length Dosing, 98, kg, 02/23/23 11:05:00 EDT, Weight Dosing Start Date: 02/25/23 Stop Date: 03/11/23 Status: Ordered gabapentin 300 mg oral capsule [...] Refill(s) Start Date: 12/01/22 Status: Ordered losartan 50 mg oral tablet 50 mg = 1 tab, Oral, Daily, # 30 tab, 0 Refill(s) Start Date: 01/29/23 Status: Ordered melatonin 5 mg oral tablet 5 mg = 1 tab, Oral, every day at bedtime, PRN as needed for insomnia, # 60 tab, 0 Refill(s) Start Date: 12/01/22 Status: Ordered metFORMIN 1000 mg oral tablet 1,000 mg = 1 tab, Oral, BID, # 60 tab, 0 Refill(s) Start Date: 12/01/22 Status: Ordered naproxen 220 mg =, Oral, every 8 hr, PRN as needed for pain, 0 Refill(s) Start Date: 03/09/23 Status: Ordered tadalafil 5 mg =, Oral, every night at bedtime, 0 Refill(s) Start Date: 12/01/22 Status: Ordered Problem List Condition Confirmation Course Effective Dates Status H ealth Status Informant Abnormal gastric motility 1 Confirmed Active Allergic rhinitis Confirmed Active Arthritis Confirmed Active BPH - benign prostatic hyperplasia Confirmed Active CAD - Coronary artery disease Confirmed Active Diverticular disease Confirmed Active Dyspnea on exertion Confirmed Active Gout Confirmed Active History of kidney stone Confirmed Active High cholesterol Confirmed Active High blood pressure Confirmed Active Joint pain Confirmed Active Neck pain Confirmed Active Numbness 2 Confirmed Active Peptic ulcer disease Confirmed Active PONV - Postoperative nausea and vomiting Confirmed Active Tear of right rotator cuff Confirmed Active Tear of rotator cuff of right hip Confirmed Active 1after certain anesthesia 2right hand intermittent Procedures Procedure Date Related Diagnosis Body Site Status Arthroscopy Shoulder (Right) 1 02/25/23 Completed Tenodesis Biceps (Right) 2 02/25/23 Completed Arterial stent 2020 Complete d Removal of gallbladder 2012 Co mpleted Triple coronary bypass 2009 Co mpleted Procedure on upper arm 2005 Completed Rotator cuff repair 2004 Com pleted Operative procedure on foot or toes Completed 1auto-populated from documented surgical case 2auto-populated from documented surgical case 3x 5 4fatty lump removed from right arm 5LEFT Vital Signs Most recent to oldest [Reference Range]: 1 Peripheral Pulse Rate [60-100 bpm] 59 bp m *LOW* (03/09/23 2:09 PM) Blood Pressure [90-140/60-90 mmHg] 144/7 6mmHg *HI* (03/09/23 2:09 PM) Social History Social History Type Response Tobacco Former tobacco user Tobacco Use:. 15 year(s). 1 Sex Male 1Quit in 1980 Implantable Device List Procedure Provider Procedure Date Device Type Site Arthroscopy, shoulder, diagnostic, with or without synovial biopsy (separate procedure) Fredo Douglas MD, I 02/25/23 Non Biological Shoulder R Device Identifier Serial Number Lot or Batch Number Manufacturing Date Expiration Date Distinct Identification Code MRI Safety Implantable Status Assigning Authority Unknown Unknown [id number] Unknown 10/26/25 Unknown Unknown Active Unk nown Unknown Unknown [id number] Unknown 12/24/26 Unknown Unknown Active Unk nown Hospital Discharge Instructions Follow Up Care 01/29/2023 11:45:52 With:Fredo Douglas MD, I Address: [address] [place] [address]- When:Within 4 Week(s) Comments:F/U RIGHT SHOULDER ARTHROSCOPY/RCR Physician Outpatient Note * Lisbeth Mcclure SALES DEPARTMENT MANAGER,: PERFORM Event Display: Office Clinic Note Physician Authored Date: [id number] CHRISTY RAINEY :1955 Age:67 years Sex:Male Visit Date:03/09/2023 Primary Care Physician: MALIA MACK Chief Complaint 1st POV Right shoulder accromioplasty History of Present Illness Raza is a pleasant 67-year-old man??who is??almost 2 weeks status post??right shoulder arthroscopy with rotator cuff repair and open biceps tenodesis.?? He has been frustrated with surgery due to??to pain and??his limitations.?? He has had no fever or chills. ??No chest pain or shortness of breath. ??No new injury. ??He has been compliant with the sling, following restrictions. Review of Systems Constitutional:?No??fevers,?No??chills,?No??sweats Respiratory:?No??shortness of breath,?No??cough Cardiovascular:?No??Chest pain,?No??palpitations,?No??syncope Gastrointestinal:?Nonausea,?No??vomiting,?No??diarrhea Musculoskeletal:??No??back pain,??No??neck pain,??Positive for??right shoulder pain,??No??muscle pain,??Positive for??decreased range of motion right shoulder Integumentary:?No??rash,?No??pruritus,?No??abrasions Neurologic: Alert & oriented X 4 Psychiatric:?No??anxiety,?No??depression Physical Exam Vitals & Measurements HR:??59??(Peripheral)?? BP:??144/76?? SpO2:??96%?? Pain Score:??3?? The patient is alert and oriented x3. ??Pleasant and cooperative. ??Well-dressed and well-groomed.?? Appears stated age and is well-nourished and well- developed.?? Examination of the right shoulder reveals nicely healing arthroscopy portal sites with Steri-Strips intact. ??Axillary incision is heali ng nicely with skin glue intact. ??No signs or symptoms of infection. ??Arm and forearm compartments are soft and nontender.?? Range of motion is intact at the elbow and wrist. ??Patient is able to make a composite fist with ease and extend all fingers without difficulty. ??Radial pulse is 2+. ??Skin is warm and pink with brisk capillary refill and sensation is intact distally. Assessment/Plan 1.??Status post right rotator cuff repair??Z98.890 Raza is a pleasant 67-year-old man who is doing well??almost 2 weeks status post right shoulder arthroscopy with rotator cuff repair and open biceps tenodesis. ??He is frustrated with??the shoulder pain as well as his limitations, but I reassured him that things will get better with time.?? I also reassured him that everything went very well in surgery. ??Operative procedures and findings were discussed at length,??utilizing operative photos for teaching. ??He has copies for his records. ??We discussed appropriate sling use and restrictions at length. ??He may begin to work on gentle range of motion at the elbow and start to do some pendulum exercises.?? He will begin physical therapy at 5 to 6 weeks postop, the referral has been sent. ??He may shower, understands to avoid baths, swimming,hot tubs. ??He will return to the office??in about a month to see Dr. Douglas for follow-up. ??He and his are in agreement with that plan and are encouraged to contact the office anytime with questions or concerns. Referral Orders Referral Management, Medical Service: RM Physical Therapy, Reason: PT/OT eval/tx R shoulder s/p RCR, Type: Evaluate and Treat, Refer To: Provider Not Specified, Generic External, [address] [place] [address]., Start: 04/05/23, Instructions: May begin at 5-6 weeks... Follow Up Instructions With When Contact Information Fredo Douglas MD, I In 4 weeks [address] [place] [address]- Additional Instructions: F/U RIGHT SHOULDER ARTHROSCOPY/RCR Problem List/Past Medical History Ongoing Abnormal gastric motility Allergic rhinitis Arthritis BPH - benign prostatic hyperplasia CAD - Coronary artery disease Diverticular disease Dyspnea on exertion Gout High blood pressure High cholesterol History of kidney stone Joint pain Neck pain Numbness Peptic ulcer disease PONV - Postoperative nausea and vomiting Tear of right rotator cuff Tear of rotator cuff of right hip Historical Diabetes Procedure/Surgical History ???Arthroscopy Shoulder (Right) (02/25/2023)???Tenodesis Biceps (Right) (02/25/2023)???Arterial stent (2020)???Removal of gallbladder (2012)???Triple coronary bypass (2009)???Procedure on upper arm (2005)???Rotator cuff repair (2004)???Operative procedure on foot or toes Medications acetaminophen 650 mg oral tablet, extended release, 1300 mg= 2 tab, Oral, every 8 hr, PRN allopurinol 100 mg oral tablet, 100 mg= 1 tab, Oral, Daily aspirin 81 mg oral delayed release tablet, 81 mg= 1 tab, Oral, Daily atorvastatin 20 mg oral tablet, 20 mg= 1 tab, Oral, every evening celecoxib 200 mg oral capsule, 200 mg= 1 cap, Oral, BID gabapentin 300 mg oral capsule, 300 mg= 1 cap, Oral, every night at bedtime glipiZIDE 2.5 mg oral tablet, extended release, 2.5 mg= 1 tab, Oral, Daily Icosapent Ethyl 0.5 g oral capsule, 2 g= 4 cap, Oral, BID losartan 50 mg oral tablet, 50 mg= 1 tab, Oral, Daily melatonin 5 mg oral tablet, 5 mg= 1 tab, Oral, every night at bedtime, PRN metFORMIN 1000 mg oral tablet, 1000 mg= 1 tab, Oral, BID naproxen, 220 mg, Oral, every 8 hr, PRN tadalafil, 5 mg, Oral, every night at bedtime Allergies meperidine??(Stomach upset) morphine??(Stomach upset) Flagyl??(Rash) Social History Alcohol Current, 1-2 times per month Electronic Cigarette/Vaping Electronic Cigarette Use: Never. Substance Use Never Tobacco Former tobacco user Tobacco Use:. 15 year(s).- Comments: Quit in 1980 Family History Arthritis: Mother. Diabetes mellitus: Grandmother (M). Heart attack: Father. Rheumatoid arthritis: Mother. Electronically Signed on 03/09/23 02:57 PM Lisbeth Mcclure APRN, Patient Care team information Care Team Personnel Name: MALIA MACK Position: No Access Member Role: Primary Care Physician Address: Address: [address] [address]- Care Team Related Persons Name: OSITO RAINEY Name: OSITO RAINEY Address: Home [address] [facility], [id number]
--- OUTSIDE RECORDS SUMMARY | 2023-09-13 16:52 | XMS_ITS | Continuity of Care Document ---
Author Name Unknown Organization [facility] Address [address] [place] [address] Care Team Providers Care Building Specialist Name Role Phone MALIA MACK Primary Care Physician [phone] [facility] [id number] Date(s): 06/08/23 - 06/08/[address] [address]- Encounter Diagnosis Thrombocytopenia, unspecified(Final) - Other disorders of plasma-protein metabolism, not elsewhere classified(Final) - Thoracic aortic ectasia(Final) - Edema, unspecified(Final) - Other fatigue(Final) - Discharge Disposition: Home or Self Care Attending Physician: MALIA MACK Admitting Physician: MALIA MACK Referring Physician: MALIA MACK Allergies, Adverse Reactions, Alerts Substance Reaction Severity Status meperidine Stomach upset Moderate Active morphine Stomach upset Moderate Active Flagyl 1 Rash Mild Active 1colchicine Medications acetaminophen 650 mg oral tablet, extended release 1,300 mg = 2 tab, Oral, every 8 hr, PRN as needed for pain, # 84 tab, 0 Refill(s), Pharmacy: [facility], 178, cm, 02/23/23 11:05:00 [...] BID, # 28 cap, 0 Refill(s), Pharmacy: [facility], 178, cm, 02/23/23 11:05:00 [...] 4fatty lump removed from right arm 5LEFT Results Radiology Reports * Exam Date Time Procedure Performing Provider Status 06/08/23 8:[address] Abdomen and Pelvis w/ Contrast Perr Enedina hoover; Sole (Verified) Notes: (CT Abdomen and Pelvis w/ Contrast) Reason For Exam: thrombocytopenia CT Abdomen and Pelvis w/ Contrast EXAM DESCRIPTION: CT Abdomen and Pelvis w/ Contrast 06/08/2023 INDICATION: THROMBOCYTOPENIA TECHNIQUE: All CT scans at this facility use at least one of these dose optimization techniques: Automated exposure control; mA and/or kV adjustment per patient size (includes targeted exams where dose is matched to clinical indication); or iterative reconstruction. Technique: Axial CT images of the abdomen/pelvis with IV contrast administration 100 cc of Isovue-300 contrast was utilized COMPARISON: None FINDINGS: No focal hepatic lesion. Normal enhancement of the main hepatic veins and main portal vein. The spleen is enlarged measuring 16.4 x 13.4 cm. No focal splenic lesion Gallbladder not identified Adrenal glands and pancreas appear within normal limits Tiny low-attenuation right renal lesions measuring a few mm in size which are too small to characterize. Otherwise no focal renal mass, hydronephrosis or perinephric fluid collection on either side. Prostate gland is mildly enlarged with indentation of the bladder base Normal caliber abdominal aorta with scattered atherosclerotic calcifications Mildly enlarged lymph nodes in the yanely hepatis region. Otherwise no retroperitoneal adenopathy in the abdomen or pelvis. No bowel dilatation to suggest obstruction or ileus. No free intraperitoneal air, ascites or inflammatory changes. Scattered colonic diverticula. Normal appendix. No suspicious regional osseous lesions. IMPRESSION: Splenomegaly measuring 16.4 x 13.4 cm. No focal splenic lesion Mild yanely hepatis region adenopathy. Nonobstructive bowel pattern. No free air or inflammatory changes. Additional nonacute findings as detailed above. JOB #: [id number] Final Signed by: Pablito Arboleda MD Signed (Electronic Signature): 06/08/2023 9:38 am * Exam Date Time Procedure Performing Provider Status 06/08/23 8:[address] Chest w/ Contrast Tyra Da Silva (Verified) Notes: (CT Chest w/ Contrast) Reason For Exam: thrombocytopenia CT Chest w/ Contrast EXAM DESCRIPTION: CT Chest w/ Contrast 06/08/2023 INDICATION: THROMBOCYTOPENIA TECHNIQUE: All CT scans at this facility use at least one of these dose optimization techniques: Automated exposure control; mA and/or kV adjustment per patient size (includes targeted exams where dose is matched to clinical indication); or iterative reconstruction. Technique: Axial CT images of the chest with IV contrast administration 100 cc of Isovue-300 contrast was utilized COMPARISON: None FINDINGS: Right paratracheal adenopathy with the largest lymph node measuring 14 mm in short axis dimension. Subcarinal adenopathy measuring 19 mm in short axis dimension. Mildly enlarged prevascular space and AP window lymph nodes noted as well. No hilar or axillary adenopathy. No pericardial effusion. Normal caliber thoracic aorta with a few scattered atherosclerotic calcifications. Coronary artery calcifications are noted. Patchy areas of ground-glass attenuation infiltrate are noted bilaterally most pronounced in the lower lobe distribution of uncertain chronicity. Findings may reflect chronic interstitial lung disease or interstitial pneumonitis. Small pleural-based nodular opacity in the right mid chest on image number 77 measuring 2.6 mm in diameter, too small to characterize. No significant emphysematous changes. No pleural effusion or pneumothorax No suspicious regional osseous lesions. IMPRESSION: Mediastinal adenopathy as detailed above. Neoplastic process can not be excluded. Patchy areas of ground-glass attenuation infiltrate bilaterally of uncertain chronicity. Findings may reflect chronic interstitial lung disease or interstitial pneumonitis. JOB #: [id number] Final Signed by: Pablito Arboleda MD Signed (Electronic Signature): 06/08/2023 9:24 am Social History Social History Type Response [...] Safety Implantable Status Assigning Authority Unknown Unknown [id number] Unknown 10/26/25 Unknown Unknown Active Unk nown Unknown Unknown [id number] Unknown 12/24/26 Unknown Unknown Active Unk nown Patient Care team information Care Team Personnel Name: MALIA MACK Position: No Access Member Role: Primary Care Physician Address: Address: [address] [address]- Care Team Related Persons Name: OSITO RAINEY Name: OSITO RAINEY Address: [address] [phone]
--- OUTSIDE RECORDS SUMMARY | 2023-09-13 16:52 | XMS_ITS | Continuity of Care Document ---
Author Name Unknown Organization [facility] Address [address] [place] [address] Care Team Providers Care Rear Load Truck Driver Name Role Phone MALIA MACK Primary Care Physician [phone] Encounter [facility] NBR [id number] Date(s): 04/05/23 - 04/05/23 [facility] [address] [place] [address]- [place] Discharge Disposition: Home or Self Care Attending Physician: Viraj Roca MD, FACC, FACP, FASNC, FASE, FSCCT Admitting Physician: Viraj Roca MD, FACC, FACP, FASGILBERT, FASEmanuel, FSCCT Referring Physician: MALIA MACK Allergies, Adverse Reactions, Alerts Substance Reaction Severity Status meperidine Stomach upset Moderate Active morphine Stomach upset Moderate Active Flagyl 1 Rash Mild Active 1colchicine Assessment and Plan Future Appointments Medications acetaminophen 650 mg oral tablet, extended release 1,300 mg = 2 tab, Oral, every 8 hr, PRN as needed for pain, # 84 tab, 0 Refill(s), Pharmacy: [facility], 178, cm, 02/23/23 11:05:00 EDT, [...] BID, # 28 cap, 0 Refill(s), Pharmacy: [facility], 178, cm, 02/23/23 11:05:00 EDT, [...] Biceps (Right) 2 02/25/23 Completed Arterial stent 3 2020 Complete d Removal of gallbladder 2012 Co mpleted Triple coronary bypass 2009 Co mpleted Procedure on upper arm 2005 Completed Rotator cuff repair 2004 Com pleted Operative procedure on foot or toes Completed 1auto-populated from documented surgical case 2auto-populated from documented surgical case 3x 5 4fatty lump removed from right arm 5LEFT Social History Social History Type Response Tobacco Former tobacco user Tobacco Use:. 15 year(s). 1 Sex Male 1Quit in 1980 Implantable Device List Procedure Provider Procedure Date Device Type Site Arthroscopy, shoulder, diagnostic, with or without synovial biopsy (separate procedure) Misael W[place], Fredo Zamarripa 02/25/23 Non Biological Shoulder R Device Identifier Serial Number Lot or Batch Number Manufacturing Date Expiration Date Distinct Identification Code MRI Safety Implantable Status Assigning Authority Unknown Unknown [id number] Unknown 10/26/25 Unknown Unknown Active Unk nown Unknown Unknown [id number] Unknown 12/24/26 Unknown Unknown Active Unk nown Patient Care team information Care Team Personnel Name: MALIA MACK Position: No Access Member Role: Primary Care Physician Address: Address: [address] [address]- Care Team Related Persons Name: OSITO RAINEY Address: Home Name: OSITO RAINEY Address: [address] [id number]
--- OUTSIDE RECORDS SUMMARY | 2023-09-13 16:52 | XMS_ITS | Continuity of Care Document ---
Author Name Unknown Organization [facility] Ambulatory Clinics Address [address] [place] [address] Care Team Providers Care Mercantile Reporter Name Role Phone MALIA MACK Primary Care Physician Encounter [facility] NBR [id number] Date(s): 05/14/23 - 05/14/23 [facility] Ambulatory Clinics [address] [place], [place] [address] Encounter Diagnosis Tear of right rotator cuff(Discharge Diagnosis) - 05/14/23 Discharge Disposition: Home or Self Care Attending Physician: Fredo Douglas MD, I Allergies, Adverse Reactions, Alerts Substance Reaction Severity Status meperidine Stomach upset Moderate Active morphine Stomach upset Moderate Active Flagyl 1 Rash Mild Active 1colchicine Medications acetaminophen 650 mg oral tablet, extended release 1,300 mg = 2 tab, Oral, every 8 hr, PRN as needed for pain, # 84 tab, 0 Refill(s), Pharmacy: [facility], 178, cm, 02/23/23 11:05:00 EDT, Height/Length [...] BID, # 28 cap, 0 Refill(s), Pharmacy: [facility], 178, cm, 02/23/23 11:05:00 EDT, Height/Length [...] 2009 Co mpleted Procedure on upper arm 4 2005 Completed Rotator cuff repair 5 2004 Com pleted Operative procedure on foot or toes Completed 1auto-populated from documented surgical case 2auto-populated from documented surgical case 3x 5 4fatty lump removed from right arm 5LEFT Vital Signs Most recent to oldest [Reference Range]: 1 Peripheral Pulse Rate [60-100 bpm] 57 bp m *LOW* (05/14/23 10:05 AM) Blood Pressure [90-140/60-90 mmHg] 144/7 8mmHg *HI* (05/14/23 10:05 AM) Social History Social History Type Response Tobacco [...] Safety Implantable Status Assigning Authority Unknown Unknown [id number] Unknown 10/26/25 Unknown Unknown Active Unk nown Unknown Unknown [id number] Unknown 12/24/26 Unknown Unknown Active Unk nown Physician Outpatient Note * Fredo Douglas MD, I: PERFORM Event Display: Office Clinic Note Physician Authored Date: [id number] CHRISTY RAINEY :1955 Age:68 years Sex:Male Visit Date:05/14/2023 Primary Care Physician: MALIA MACK Chief Complaint right shoulder POV History of Present Illness Patient returns today, he is about 10 weeks status post a rotator cuff repair this was a small tearhe also a biceps tenodesis.?? He is doing fair, he is going to therapy but is still concerned because he is feeling some discomfort to his shoulder.?? Patient however does also admit that has been doing??fair amount of lifting??and work around his house. Physical Exam Vitals & Measurements HR:??57??(Peripheral)?? BP:??144/78?? SpO2:??97%?? Pain Score:??1?? Emanation today of the right shoulder shows 150 degrees of active elevation 160 degrees of passive elevation,??the biceps has good contour.?? Patient has 4-5 rotator cuff strength. Assessment/Plan 1.??Tear of right rotator cuff??M75.101 Patient doing fair after his cuff repair patient is a bit frustrated because he still feeling discomfort but I told him that??I think part of the issue is his only 10 weeks and he is already gone back to doing a lot of activities which would not be advisable.?? I have asked him to try to hold off on this and just concentrate on the therapy??he verbalized understanding but does say that he is about to go on a long trip and is going to have to be using the arm.?? We again discussed the healing ofrotator cuffs and the natural history.?? Patient will again try to do therapy will try to avoid lifting and he will return to see me when he gets back from his trip. Problem List/Past Medical History Ongoing Abnormal gastric [...] Father. Rheumatoid arthritis: Mother. Electronically Signed on 05/14/23 10:27 AM Fredo Douglas MD, I Patient Care team information Care Team Personnel Name: MALIA MACK Position: No Access Member Role: Primary Care Physician Address: Address: [address] [address]- Care Team Related Persons Name: OSITO RAINEY Address: Home Name: OSITO RAINEY Address: Home [address] [place] [id number]
--- OUTSIDE RECORDS SUMMARY | 2023-09-13 16:52 | XMS_ITS | Continuity of Care Document ---
Author Name Unknown Organization [facility] Address [address] [place] [address] Care Team Providers Care Physician Anesthesiologist Name Role Phone MALIA MACK Primary Care Physician Encounter [facility] NBR [id number] Date(s): 07/28/23 - 07/28/23 [facility] [address] [place] [address]- [place] Discharge Disposition: Home or [...] pain, # 84 tab, 0 Refill(s), Pharmacy: [facility], 178, cm, 02/23/23 11:05:00 EDT, [...] BID, # 28 cap, 0 Refill(s), Pharmacy: [facility], 178, cm, 02/23/23 11:05:00 EDT, [...] Exam Date Time Procedure Performing Provider Status 07/28/23 9:[address] Chest w/ Contrast Santo Weinberg; Au th (Verified) Notes: (CT Chest w/ Contrast) Reason For Exam: THORACIC LYMPHADENOPATHY CT Chest w/ Contrast EXAM DESCRIPTION: CT Chest w/ Contrast 07/28/2023 INDICATION: No hilar or axillary adenopathy. No pericardial effusion. No central pulmonary artery filling defect identified. Normal caliber thoracic aorta with scattered atherosclerotic calcifications. Coronary artery calcifications are noted. THORACIC LYMPHADENOPATHY TECHNIQUE: All CT scans at this facility use at least one of these dose optimization techniques: Automated exposure control; mA and/or kV adjustment per patient size (includes targeted exams where dose is matched to clinical indication); or iterative reconstruction. Technique: Axial CT images of the chest with IV contrast administration 100 cc of Isovue-300 contrast was utilized COMPARISON: CT chest examination from 06/08/2023 FINDINGS: Right paratracheal adenopathy with largest lymph node measuring 14 mm in axis dimension. Subcarinal adenopathy measuring 19 mm in short axis dimension. Additional mildly enlarged lymph nodes in the prevascular space and AP window regions. No significant change from prior study. No new mediastinal adenopathy. No hilar or axillary adenopathy. Patchy areas of ground-glass attenuation infiltrate are noted bilaterally most pronounced in the lower lobe distribution which have improved since prior study. Findings may reflect improving interstitial pneumonitis or improving chronic changes. Lungs otherwise clear with no focal consolidation. Previously described tiny pleural-based nodular opacity in the right mid chest is not well seen currently. No significant emphysematous changes. No central endobronchial filling defect identified No pleural effusion or pneumothorax Mild adenopathy in the yanely hepatis region without significant change. The spleen appears mildly enlarged as described previously and is incompletely visualized on this CT chest examination. No mass or adenopathy otherwise noted in the visualized upper abdomen No suspicious regional osseous lesions. IMPRESSION: Mediastinal adenopathy as detailed above without significant change from prior study. Previously described patchy areas of ground-glass attenuation infiltrate bilaterally have improved since prior study. Adenopathy in the yanely hepatis region with mild splenomegaly. These findings were described on previous CT abdomen/pelvis examination from 06/08/2023. JOB #: [id number] Final Signed by: Pablito Arboleda MD Signed (Electronic Signature): 07/28/2023 10:00 am * Exam Date Time Procedure Performing Provider Status 07/28/23 8:49 AM MRI Brain w/ + w/o Contrast DomainUser , Generated; Auth (Verified) Notes: (MRI Brain w/ + w/o Contrast) Reason For Exam: HEADACHE, THORACIC LYMPHADENOPATHY MRI Brain w/ + w/o Contrast EXAM DESCRIPTION: MRI Brain w/ + w/o Contrast 07/28/2023 INDICATION: HEADACHE, THORACIC LYMPHADENOPATHY TECHNIQUE: Technique: Multiplanar MRI examination of the head including FLAIR and diffusion series. Postcontrast T1-weighted images were obtained in 3 planes. 19 mL of MultiHance contrast was utilized COMPARISON: None FINDINGS: No intracranial mass, mass effect or abnormal enhancement. Mild prominence of the ventricular system and cortical sulci consistent with generalized cerebral atrophy. Diffusion weighted images demonstrate no focal area of acute or recent infarct. Small extra-axial lesion along the anterior aspect of the falx demonstrating increased T1 signal and decreased signal on gradient echo images without evidence of abnormal enhancement most consistent with focal area of dural calcification or ossification. No hydrocephalus, extra-axial fluid collection or blood breakdown products. Multiple nonspecific foci of periventricular and subcortical white matter T2 signal prolongation bilaterally likely reflecting chronic microangiopathy or sequela of migraine headaches. Cerebellar tonsil position is normal. The pituitary gland demonstrates normal morphology and signal intensity. No significant temporal horn asymmetry. Visualized vascular flow voids and cranial nerves appear within normal limits. Opacification of the frontal sinuses bilaterally with significant bilateral maxillary, ethmoid and sphenoid sinus mucosal thickening. Postcontrast images demonstrate mucosal enhancement throughout the paranasal sinuses likely reflecting inflammation. IMPRESSION: No intracranial mass, mass effect or abnormal enhancement. Mild generalized cerebral atrophy No acute or recent infarct on diffusion series Multiple nonspecific periventricular and subcortical white matter lesions bilaterally likely reflecting chronic microangiopathy or sequela of migraine headaches Extensive paranasal sinus inflammatory changes as described above. JOB #: [id number] Final Signed by: Pablito Arboleda MD Signed (Electronic Signature): 07/28/2023 9:17 am Social History Social History Type Response Tobacco Former tobacco user Tobacco Use:. 15 year(s). 1 Sex Male 1Quit in 1980 Implantable Device List Procedure Provider Procedure Date Device Type Site Arthroscopy, shoulder, diagnostic, with or without synovial biopsy (separate procedure) Fredo Douglas MD 02/25/23 Non Biological Should er R Device Identifier Serial Number Lot or Batch Number Manufacturing Date Expiration Date Distinct Identification Code MRI Safety Implantable Status Assigning Authority Unknown Unknown [id number] Unknown 10/26/25 Unknown Unknown Active Unk nown Unknown Unknown [id number] Unknown 12/24/26 Unknown Unknown Active Unk nown Patient Care team information Care Team Personnel Name: MALIA MACK Position: No Access Member Role: Primary Care Physician Address: Address: [address] [address]- Care Team Related Persons Name: OSTIO RAINEY Name: OSITO RAINEY Address: Home [address] [id number]
--- OUTSIDE RECORDS SUMMARY | 2023-09-13 16:52 | XMS_ITS | Continuity of Care Document ---
Author Name Unknown Organization [facility] Ambulatory Clinics Address [address] [place] [address] Care Team Providers Care Scaffolder Name Role Phone MALIA MACK Primary Care Physician Encounter [facility] [facility] NBR [id number] Date(s): 04/02/23 - 04/02/23 [facility]ulatory Clinics [address] [place], [place] [address] Encounter Diagnosis Tear of right rotator cuff(Discharge Diagnosis) - 04/02/23 Discharge Disposition: Home or Self Care Attending Physician: Fredo Douglas MD, I Allergies, Adverse Reactions, Alerts Substance Reaction Severity Status meperidine Stomach upset Moderate Active morphine Stomach upset Moderate Active Flagyl 1 Rash Mild Active 1colchicine Assessment and Plan Future Appointments Functional Status 04/02/23 Other exposure to Infectious Disease Non e Medications acetaminophen 650 mg oral tablet, extended release 1,300 mg = 2 tab, Oral, every 8 hr, PRN as needed for pain, # 84 tab, 0 Refill(s), Pharmacy: [facility], 178, cm, 02/23/23 11:05:00 [...] BID, # 28 cap, 0 Refill(s), Pharmacy: [facility], 178, cm, 02/23/23 11:05:00 [...] upper arm 2005 Completed Rotator cuff repair 5 2004 Com pleted Operative procedure on foot or toes Completed 1auto-populated from documented surgical case 2auto-populated from documented surgical case 3x 5 4fatty lump removed from right arm 5LEFT Vital Signs Most recent to oldest [Reference Range]: 1 Blood Pressure [90-140/60-90 mmHg] 144/8 0mmHg *HI* (04/02/23 11:44 AM) Weight 98 kg (04/02/23 11:49 AM) Weight Measured (lbs) 216.053 lb (04/02/23 11:49 AM) Height 178 cm (04/02/23 11:49 AM) Height/Length Measured (inches) 70.08 in ch (04/02/23 11:49 AM) BSA Measured 2.2 m2 (04/02/23 11:49 AM) Body Mass Index 30.93 kg/m2 (04/02/23 11:49 AM) Social History Social History Type Response [...] Safety Implantable Status Assigning Authority Unknown Unknown [id number] Unknown 10/26/25 Unknown Unknown Active Unk nown Unknown Unknown [id number] Unknown 12/24/26 Unknown Unknown Active Unk nown Physician Outpatient Note * Fredo Douglas MD, I: PERFORM Event Display: Office Clinic Note Physician Authored Date: [id number] CHRISTY RAINEY :1955 Age:68 years Sex:Male Visit Date:04/02/2023 Primary Care Physician: MALIA MACK Chief Complaint RIGHT SHOULDER PAIN ??POST OP History of Present Illness Patient returns today, he is 5 weeks status post repair of a small rotator cuff tear and biceps tenodesis,??he says he is doing much better but he comes in without a sling and does say he is??discontinued his sling??about a week ago.?? He does say he is trying to be careful with use of the arm. Physical Exam Vitals & Measurements BP:??144/80?? HT:??178??cm?? WT:??98??kg?? BMI:??30.93?? BSA:??2.2?? Examination of the surgical right shoulder shows??well-healed incisions, patient is 170 degrees of passive elevation, Assessment/Plan 1.??Tear of right rotator cuff??M75.101 Patient doing fine after cuff repair, I did recommend patient go back in a sling for the last week of??this crucial for 6 weeks,??he can start physical therapy in a week, I will see him back in 6 weeks. Problem List/Past Medical History Ongoing Abnormal gastric [...] Father. Rheumatoid arthritis: Mother. Electronically Signed on 04/02/23 03:30 PM Fredo Douglas MD, I Patient Care team information Care Team Personnel Name: MALIA MACK Position: No Access Member Role: Primary Care Physician Address: Address: [address] [address]- Care Team Related Persons Name: OSITO RAINEY Address: Home Name: OSITO RAINEY Address: Home [address] [place] [phone]
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
--- OUTSIDE RECORDS SUMMARY | 2023-09-13 16:52 | XMS_ITS | Continuity of Care Document ---
Author Name Unknown Organization [facility] Address [address] [place] [address] Care Team Providers Care Caser Name Role Phone MALIA MACK Primary Care Physician Encounter [facility] NBR [id number] Date(s): 01/05/23 - 01/05/23 [facility] [address] [place] [address]- [place] Discharge Disposition: Home or Self Care Attending Physician: Lisbeth Mcclure APRN, Admitting Physician: Lisbeth Mcclure APRN, Referring Physician: Lisbeth Mcclure APRN, Allergies, Adverse Reactions, Alerts Substance Reaction Severity Status Flagyl 1 Unknown Active 1colchicine Medications allopurinol 100 mg oral tablet 100 [...] Exam Date Time Procedure Performing Provider Status 01/05/23 2:18 PM MRI Shoulder w/o Contrast Right Anshu Schwartz; Sole (Verified) Notes: (MRI Shoulder w/o Contrast Right) Reason For Exam: rotator cuff tear MRI Shoulder w/o Contrast Right EXAM DESCRIPTION: MRI Shoulder w/o Contrast Right 01/05/2023 INDICATION: ROTATOR CUFF TEAR TECHNIQUE: Multiplanar MRI examination of the right shoulder utilizing T1, PD and fat-suppressed T2 technique COMPARISON: Routine radiographs of the right shoulder from 12/01/2022 FINDINGS: Focal area of T2 signal prolongation in the distal supraspinatus tendon slightly proximal to its insertion consistent with focal full-thickness tear measuring approximately 9 mm in transverse dimension and 5 mm in AP dimension. Intermediate signal abnormality within additional portions of the supraspinatus tendon consistent with tendinosis with small partial articular surface tear suspected involving the anterior aspect of the distal supraspinatus tendon near its greater tuberosity insertion. No full-thickness infraspinatus or subscapularis tendon tear. Teres minor tendon insertion appears intact No rotator cuff muscle atrophy/volume loss or fatty infiltration. Mild fluid in the subacromial/subdeltoid bursa. Mild AC joint osteoarthritic changes with joint space narrowing and inferiorly directed osteophytes. No significant downsloping of the acromion. Type 2-3 acromion. No os acromiale No significant glenohumeral joint arthritic changes. No glenohumeral joint effusion. No regional marrow edema. Ovoid T1 and T2 hypointense lesion involving the medial aspect of the humeral head consistent with small sclerotic lesion seen on recent routine radiographs. This likely reflects bone island. Mild nonspecific cystic changes in the humeral head. Coracoacromial ligament appears intact Biceps anchor appears intact. Proximal aspect of the long head biceps tendon is normally situated in the bicipital groove with no intrasubstance signal abnormality to suggest tendinosis. Short head biceps tendon origin appears intact. No labral tear identified on this non arthrogram study. No Hill-Sachs or Bankart lesion No regional muscle edema to suggest strain or myositis. IMPRESSION: Focal full-thickness tear involving the distal supraspinatus tendon as detailed above. Findings consistent with underlying tendinosis in the supraspinatus tendon with small partial articular surface tear of the anterior aspect of the distal supraspinatus tendon near its greater tuberosity insertion suspected as well. No rotator cuff muscle atrophy. Mild fluid in the subacromial/subdeltoid bursa. Mild AC joint osteoarthritic changes with type 2-3 acromion. JOB #: [id number] Final Signed by: Pablito Arboleda MD Signed (Electronic Signature): 01/05/2023 3:16 pm * Exam Date Time Procedure Performing Provider Status 01/05/23 2:09 PM MRI Spine Cervical w/o Contrast Anshu Schwartz; Sole (Verified) Notes: (MRI Spine Cervical w/o Contrast) Reason For Exam: radiculopathy MRI Spine Cervical w/o Contrast EXAM DESCRIPTION: MRI Spine Cervical w/o Contrast N/A INDICATION: RADICULOPATHY TECHNIQUE: Multiplanar MRI examination of the cervical spine utilizing T1, fat-suppressed T2 and fast STIR technique. COMPARISON: Routine radiographs of the cervical spine from 12/01/2022 FINDINGS: Mild straightening of cervical lordosis, likely positional. C2-3: Minimal broad-based central disc osteophyte complex. No significant stenosis or cord encroachment with AP spinal canal diameter of 11 mm. No neural foraminal narrowing. Mild bilateral facet hypertrophy. C3-4: Broad-based central disc osteophyte complex. No cord encroachment or deformity with AP spinal canal diameter of 8.6 mm. Right uncovertebral spurring with right neural foraminal narrowing. No significant left neural foraminal narrowing C4-5: Broad-based central disc osteophyte complex. This encroaches on the ventral aspect of the cervical spinal cord with mild cord effacement. No significant cord deformity. AP spinal canal diameter is 7.7 mm. Bilateral uncovertebral spurring with significant bilateral neural foraminal narrowing C5-6: Mild broad-based central disc osteophyte complex. No significant stenosis or cord encroachment with AP spinal canal diameter of 11 mm. No significant neural foraminal narrowing. C6-7: Mild broad-based central disc osteophyte complex. No significant spinal stenosis with AP spinal canal diameter of 12 mm. Left uncovertebral spurring with left neural foraminal narrowing. No significant right neural foraminal narrowing C7-T1: No focal disc protrusion, significant spinal stenosis or neural foraminal narrowing. No significant stenosis in the visualized upper thoracic spine No intrinsic signal abnormality within the cervical spinal cord to suggest edema or myelomalacia with no evidence of syrinx. Visualized posterior fossa structures are unremarkable. No suspicious regional marrow lesions. No vertebral body compression deformity in the cervical region. Paraspinal soft tissues are unremarkable IMPRESSION: Multilevel spondylotic changes. Relative central stenosis at several levels with cord encroachment and mild cord effacement at C4-5. Neural foraminal narrowing noted at several levels which appears significant bilaterally at C4-5. Please see above discussion for individual level description. JOB #: [id number] Final Signed by: Pablito Arboleda MD Signed (Electronic Signature): 01/05/2023 2:09 pm Social History Social History Type Response Tobacco Former tobacco user Tobacco Use:. 15 year(s). 1 Sex Male 1Quit in 1980 MR Cervical spine WO contrast * Pablito Arboleda MD: VERIFY, VERIFY Event Display: Report EXAM DESCRIPTION: MRI Spine Cervical w/o Contrast N/A INDICATION: RADICULOPATHY TECHNIQUE: Multiplanar MRI examination of the cervical spine utilizing T1, fat-suppressed T2 and fast STIR technique. COMPARISON: Routine radiographs of the cervical spine from 12/01/2022 FINDINGS: Mild straightening of cervical lordosis, likely positional. C2-3: Minimal broad-based central disc osteophyte complex. No significant stenosis or cord encroachment with AP spinal canal diameter of 11 mm. No neural foraminal narrowing. Mild bilateral facet hypertrophy. C3-4: Broad-based central disc osteophyte complex. No cord encroachment or deformity with AP spinal canal diameter of 8.6 mm. Right uncovertebral spurring with right neural foraminal narrowing. No significant left neural foraminal narrowing C4-5: Broad-based central disc osteophyte complex. This encroaches on the ventral aspect of the cervical spinal cord with mild cord effacement. No significant cord deformity. AP spinal canal diameter is 7.7 mm. Bilateral uncovertebral spurring with significant bilateral neural foraminal narrowing C5-6: Mild broad-based central disc osteophyte complex. No significant stenosis or cord encroachment with AP spinal canal diameter of 11 mm. No significant neural foraminal narrowing. C6-7: Mild broad-based central disc osteophyte complex. No significant spinal stenosis with AP spinal canal diameter of 12 mm. Left uncovertebral spurring with left neural foraminal narrowing. No significant right neural foraminal narrowing C7-T1: No focal disc protrusion, significant spinal stenosis or neural foraminal narrowing. No significant stenosis in the visualized upper thoracic spine No intrinsic signal abnormality within the cervical spinal cord to suggest edema or myelomalacia with no evidence of syrinx. Visualized posterior fossa structures are unremarkable. No suspicious regional marrow lesions. No vertebral body compression deformity in the cervical region. Paraspinal soft tissues are unremarkable IMPRESSION: Multilevel spondylotic changes. Relative central stenosis at several levels with cord encroachment and mild cord effacement at C4-5. Neural foraminal narrowing noted at several levels which appears significant bilaterally at C4-5. Please see above discussion for individual level description. JOB #: [id number] Final Signed by: Pablito Arboleda MD Signed (Electronic Signature): 01/05/2023 2:09 pm MR Shoulder - right WO contrast * Pablito Emig, MD: VERIFY, VERIFY Event Display: Report EXAM DESCRIPTION: MRI Shoulder w/o Contrast Right 01/05/2023 INDICATION: ROTATOR CUFF TEAR TECHNIQUE: Multiplanar MRI examination of the right shoulder utilizing T1, PD and fat-suppressed T2 technique COMPARISON: Routine radiographs of the right shoulder from 12/01/2022 FINDINGS: Focal area of T2 signal prolongation in the distal supraspinatus tendon slightly proximal to its insertion consistent with focal full-thickness tear measuring approximately 9 mm in transverse dimension and 5 mm in AP dimension. Intermediate signal abnormality within additional portions of the supraspinatus tendon consistent with tendinosis with small partial articular surface tear suspected involving the anterior aspect of the distal supraspinatus tendon near its greater tuberosity insertion. No full-thickness infraspinatus or subscapularis tendon tear. Teres minor tendon insertion appears intact No rotator cuff muscle atrophy/volume loss or fatty infiltration. Mild fluid in the subacromial/subdeltoid bursa. Mild AC joint osteoarthritic changes with joint space narrowing and inferiorly directed osteophytes. No significant downsloping of the acromion. Type 2-3 acromion. No os acromiale No significant glenohumeral joint arthritic changes. No glenohumeral joint effusion. No regional marrow edema. Ovoid T1 and T2 hypointense lesion involving the medial aspect of the humeral head consistent with small sclerotic lesion seen on recent routine radiographs. This likely reflects bone island. Mild nonspecific cystic changes in the humeral head. Coracoacromial ligament appears intact Biceps anchor appears intact. Proximal aspect of the long head biceps tendon is normally situated in the bicipital groove with no intrasubstance signal abnormality to suggest tendinosis. Short head biceps tendon origin appears intact. No labral tear identified on this non arthrogram study. No Hill-Sachs or Bankart lesion No regional muscle edema to suggest strain or myositis. IMPRESSION: Focal full-thickness tear involving the distal supraspinatus tendon as detailed above. Findings consistent with underlying tendinosis in the supraspinatus tendon with small partial articular surface tear of the anterior aspect of the distal supraspinatus tendon near its greater tuberosity insertion suspected as well. No rotator cuff muscle atrophy. Mild fluid in the subacromial/subdeltoid bursa. Mild AC joint osteoarthritic changes with type 2-3 acromion. JOB #: [id number] Final Signed by: Pablito Arboleda MD Signed (Electronic Signature): 01/05/2023 3:16 pm Patient Care team information Care Team Personnel Name: MALIA MACK Position: No Access Member Role: Primary Care Physician Address: Address: [address] [address]- Care Team Related Persons Name: OSITO RAINEY Address: Home [address] [place] [phone]
--- OUTSIDE RECORDS SUMMARY | 2023-09-13 16:52 | XMS_ITS | Continuity of Care Document ---
Author Name Unknown Organization [facility] Amb[facility] Address [address] [place] [address] Care Team Providers Care Manager Credit Name Role Phone MALIA MACK Primary Care Physician Encounter [facility] NBR [id number] Date(s): 01/29/23 - 01/29/23 [facility] [address] [place], [place] [address] Encounter Diagnosis Tear of right rotator cuff(Discharge Diagnosis) - 01/29/23 Discharge Disposition: Home or Self Care Attending Physician: Fredo Douglas MD Allergies, Adverse Reactions, Alerts Substance Reaction Severity Status Flagyl 1 Unknown Active 1colchicine Assessment and Plan Future Appointments Functional Status 01/29/23 Other exposure to Infectious Disease Non e [...] Effective Dates Status Health St atus Informant Gout Confirmed Active High cholesterol Confirmed Active High blood pressure Confirmed Active Joint pain Confirmed Active Tear of right rotator cuff Confirmed Active Tear of rotator cuff of right hip Confirmed Active Procedures Procedure Date Related Diagnosis [...] Range]: 1 Peripheral Pulse Rate [60-100 bpm] 66 bp m (01/29/23 10:57 AM) Blood Pressure [90-140/60-90 mmHg] 148/7 4mmHg *HI* (01/29/23 10:57 AM) Weight 97.52 kg (01/29/23 10:57 AM) Weight Measured (lbs) 214.995 lb (01/29/23 10:57 AM) Height 175.26 cm (01/29/23 10:57 AM) Height/Length Measured (inches) 69 inch (01/29/23 10:57 AM) BSA Measured 2.18 m2 (01/29/23 10:57 AM) Body Mass Index 31.75 kg/m2 (01/29/23 10:57 AM) Social History Social History Type Response Tobacco Former tobacco user Tobacco Use:. 15 year(s). 1 Sex Male 1Quit in 1980 Physician Outpatient Note * Fredo Douglas MD: PERFORM Event Display: Office Clinic Note Physician Authored Date: [id number] CHRISTY RAINEY :1955 Age:67 years Sex:Male Visit Date:01/29/2023 Primary Care Physician: MALIA MACK Chief Complaint RIGHT SHOULDER History of Present Illness Patient returns today,??he has had years of pain to the right shoulder, he had an injection in the past that gave him temporary relief,??he was seen??by Vane Byrd who ordered an MRI and the patient returns today for follow-up.?? He has had no change in his symptoms, he continues to have pain with use??including reaching??lifting??doing his daily activities. Physical Exam Vitals & Measurements HR:??66??(Peripheral)?? BP:??148/74?? SpO2:??96%?? HT:??175.26??cm?? WT:??97.52??kg?? BMI:??31.75?? Pain Score:??2?? BSA:??2.18?? Review of studies:??MRI of the right shoulder shows a small??full-thickness tear of the anterior aspect of the supraspinatus,??there does appear to be??some??flattening and possible subluxation of the long head of the biceps ?? Examination right shoulder today shows 150 degrees of active elevation 160 degrees of passive elevation??there is positive impingement signs pain with cuff isolation,??no tenderness to the AC joint mild tenderness in bicipital groove, no instability. Assessment/Plan 1.??Tear of right rotator cuff??M75.101 With a small full-thickness tear of the supraspinatus, I did tell the patient is presenting to be treated nonoperatively with therapy and possibly repeat injection.?? However, having already had an injection??the patient??was anxious to proceed with a surgical repair as he is very [id number],??we therefore discussed the nature of surgery would be a rotator cuff repair acromioplasty and possible biceps tenodesis??we discussed??postop rehab we discussed risks include loss of motion, infection, neurologic injury, incomplete pain relief,??patient understand these risks would like to proceed Problem List/Past Medical History Ongoing Diabetes Gout High blood pressure High cholesterol Joint pain Tear of right rotator cuff Historical No qualifying data Procedure/Surgical History ???Arterial [...] Father. Rheumatoid arthritis: Mother. Electronically Signed on 01/29/23 11:32 AM Fredo Douglas MD Patient Care team information Care Team Personnel Name: MALIA MACK Position: No Access Member Role: Primary Care Physician Address: Address: [facility] [address] [place] [address]- Care Team Related Persons Name: OSITO RAINEY Address: Home [address] [facility] [phone]
--- OUTSIDE RECORDS SUMMARY | 2023-09-13 16:52 | XMS_ITS | Continuity of Care Document ---
Author Name Unknown Organization [facility] Address [address] [place] [address] Care Team Providers Care Radio News Anchor Name Role Phone MALIA MACK Primary Care Physician Encounter [facility] NBR [id number] Date(s): 02/25/23 - 02/25/[address] [address]- [place] Encounter Diagnosis Tear of right rotator cuff(Discharge Diagnosis) - 02/25/23 Discharge Disposition: Home f/u Internal Provider Attending Physician: Fredo Douglas MD, I Admitting Physician: Fredo Douglas MD, I Referring Physician: Fredo Douglas MD, I Allergies, Adverse Reactions, Alerts Substance Reaction Severity Status meperidine Stomach upset Moderate Active morphine Stomach upset Moderate Active Flagyl 1 Rash Mild Active 1colchicine Assessment and Plan Extracted from: Title:Nerve Block Author:Mali Alas Date:02/2502/25/2023 08:11:15 Surgical Procedure:Right Shoulder AA Indication: Surgeon requested for post-op pain management ??[facility] of service: [facility] TIME OUT: Block type: Interscalene Side: Right Patient position: Semi-flowlers Pre-medication: [id number] IV Level of sedation: Sedated, easily aroused and able to follow directions Monitors: Pulse oximetery Prep done using chloroprep, ??Lidocaine 1% skin wheel 2 cc with #27G Injection made keeping needle tip and spread of anesthetic in ultrasound view using 22g 50mm??needle. Negative aspirate q5 mL. No heme. No parethsesia. Local anesthetic: Bupivicaine0.5% 20ml Future Appointments Functional Status 02/25/23 Orthopedic/Preventive Devices Abduction pillow, Sling Orthopedic Device Cares Performed Yes 02/25/23 Anti-Embolism Device Activity: In place Anti-Embolism Site Condition: No complic ations 02/25/23 Family Member Travel History No recent t ravel Recent Travel History No recent travel Other exposure to Infectious Disease Non e Medications acetaminophen 650 mg oral tablet, extended release 1,300 mg = 2 tab, Oral, every 8 hr, PRN as needed for pain, # 84 tab, 0 Refill(s), Pharmacy: [facility], 178, cm, 02/23/23 11:05:00 EDT, [...] BID, # 28 cap, 0 Refill(s), Pharmacy: [facility], 178, cm, 02/23/23 11:05:00 EDT, [...] Most recent to oldest [Reference Range]: 1 2 3 Temperature Temporal Artery [36-38 Deg C] 36.1 Deg C (02/25/23 10:54 AM) 36 Deg C (02/25/23 9:36 AM) 36.5 Deg C (02/25/23 6:41 AM) Temperature Temporal Artery (DegF) [97.3-100 Deg F] 96.98 Deg F *LOW* (02/25/23 10:54 AM) 96.8 Deg F *LOW* (02/25/23 9:36 AM) Peripheral Pulse Rate [60-100 bpm] 53 bpm *LOW* (02/25/23 10:54 AM) 57 bpm *LOW* (02/25/23 10:45 AM) 55 bpm *LOW* (02/25/23 10:30 AM) Heart Rate Monitored [60-100 bpm] 57 bpm *LOW* (02/25/23 6:41 AM) Respiratory Rate [12-24 br/min] 18 br/min (02/25/23 6:41 AM) Blood Pressure [90-140/60-90 mmHg] 121/74mmHg (02/25/23 10:54 AM) 126/69mmHg (02/25/23 10:45 AM) 131/66mmHg (02/25/23 10:30 AM) Mean Arterial Pressure, Cuff [65-140 mmHg] 90 mmHg (02/25/23 10:54 AM) 88 mmHg (02/25/23 10:45 AM) 88 mmHg (02/25/23 10:30 AM) Mean Arterial Pressure Cuff 88 mmHg (02/25/23 10:54 AM) 86 mmHg (02/25/23 10:45 AM) 86 mmHg (02/25/23 10:30 AM) Weight 98.000 kg (02/23/23 10:50 AM) Weight Dosing 98.000 kg (02/23/23 10:50 AM) Height 178.000 cm (02/23/23 10:50 AM) Height/Length Dosing 178.000 cm (02/23/23 10:50 AM) Social History Social History Type Response Tobacco Former tobacco user Tobacco Use:. 15 year(s). 1 Sex Male 1Quit in 1980 Implantable Device List Procedure Provider Procedure Date Device Type Site Arthroscopy, shoulder, diagnostic, with or without synovial biopsy (separate procedure) Fredo Dogulas MD, I 02/25/23 Non Biological Shoulder R Device Identifier Serial Number Lot or Batch Number Manufacturing Date Expiration Date Distinct Identification Code MRI Safety Implantable Status Assigning Authority Unknown Unknown [id number] Unknown 10/26/25 Unknown Unknown Active Unk nown Unknown Unknown [id number] Unknown 12/24/26 Unknown Unknown Active Unk nown Anesthesiology Consult note * Mali Alas: PERFORM Event Display: Anesthesiology Consultation Authored Date: [id number] 02/25/2023 08:11:15 Surgical Procedure:Right Shoulder AA Indication: Surgeon requested for post-op pain management ??Place of service: [facility] TIME OUT: Block type: Interscalene Side: Right Patient position: Semi-flowlers Pre-medication: [id number] IV Level of sedation: Sedated, easily aroused and able to follow directions Monitors: Pulse oximetery Prep done using chloroprep, ??Lidocaine 1% skin wheel 2 cc with #27G Injection made keeping needle tip and spread of anesthetic in ultrasound view using 22g 50mm??needle. Negative aspirate q5 mL. No heme. No parethsesia. Local anesthetic: Bupivicaine0.5% 20ml Electronically Signed on 02/25/23 08:13 AM Mali Alas Patient Care team information Care Team Personnel Name: MALIA MACK Position: No Access Member Role: Primary Care Physician Address: Address: [address] [address]- Care Team Related Persons Name: OSITO RAINEY Name: OSITO RAINEY Address: Home [address] [facility] [phone]
== END 2023-09-13 16:49 | disposition home or self-care (01) ==
LOC: NCHCN 16:48
PROVIDERS: PCP Nurse Practitioner Family; Visit Provider Nurse Practitioner Family
DX: E02 Subclinical iodine-deficiency hypothyroidism (principal); I10 Essential (primary) hypertension; D64.9 Anemia, unspecified
CPT/HCPCS: 80053; 85027; 84443

== ENCOUNTER → 2023-10-07 02:23 | Outpatient (CLI) | payer MEDICARE, BC, SELFPAY ==
--- NOTE | 2023-10-07 08:45 | DI.CT_ITS ---
Exam(s) CT SINUS WO EXAM: CT SINUS WO CLINICAL HISTORY: chronic purulet rhinorrhea. Evaluate for sinusitis. TECHNIQUE: Imaging Protocol: Axial computed tomography images with coronal and sagittal reformatted images were created and reviewed. COMPARISON: No exams were available for comparison FINDINGS: AXIAL IMAGES: Frontal sinuses: There is complete opacification of the right frontal sinuses and moderate mucosal th ickening in the left frontal sinuses. Ethmoid air cells: There is near complete opacification of the ethmoid air cells. Maxillary sinuses: There is marked mucosal thickening in the maxillary sinuses bilaterally. Sphenoid sinus: There is complete opacification of the left sphenoid sinus and marked mucosal thicken ing in the right sphenoid sinus. Ostiomeatal complexes: There is obstruction of the ostiomeatal complexes bilaterally. Osseous nasal septum: The nasal septum mildly deviates to the left. There is a small spur arising fr om the left aspect of the nasal septum. Visualized regional soft tissues: No acute findings. Orbits: Unremarkable. Bones: Age-appropriate degenerative changes are seen in the visualized cervical spine. Mastoid Air Cells: Normally aerated. IMPRESSION: Marked chronic pansinusitis. RADIATION DOSE DELIVERED: 332.15mGy.cm Total DLP 332.15mGy.cm Total DLP DATA REPOSITORY: All CT scans at this facility are submitted to the National Radiology Data Registry (NRDR) Dose Index Registry (DIR) with the [employer] (ACR). RADIATION OPTIMIZATION: All CT scans at this facility use at least one of these dose optimization te chniques: automated exposure control; mA and/or kV adjustment per patient size (includes targeted exa ms where dose is matched to clinical indication); or iterative reconstruction.
== END ==
PROVIDERS: PCP Nurse Practitioner Family; Visit Provider Otolaryngology
DX: J32.4 Chronic pansinusitis (principal)
CPT/HCPCS: 70486

== ENCOUNTER 2023-10-13 14:25 | Outpatient (REF) | payer MEDICARE, BC, SELFPAY | END 2023-10-13 14:26 | disposition home or self-care (01) | LOC: LBN 14:25 | PROVIDERS: PCP Nurse Practitioner Family; Visit Provider Otolaryngology | DX: J32.4 Chronic pansinusitis (principal); B95.7 Other staphylococcus as the cause of diseases classified elsewhere | CPT/HCPCS: 87077; 87070; 87186 ==

== ENCOUNTER 2023-10-20 15:19 | Outpatient (REF) | payer MEDICARE, BC, SELFPAY ==
[2023-10-20 14:52] LABS: Abs Immature Grans 0.03 10^3/uL (0.0-0.06); Absolute Basophil Count 0.06 10^3/uL (0.0-0.2); Absolute Eosinophil Count 0.33 10^3/uL (0.0-0.7); Absolute Lymphocyte Count 2.07 10^3/uL (1.2-3.4); Absolute Neutrophil Count 4.76 10^3/uL (1.2-6.7); Basophils % 0.8; Eosinophils % 4.2; HCT 38.4 % (40.0-50.0); HGB 13.1 g/dL (13.5-17.5); Immature Grans % 0.4; Lymphocytes % 26.4; MCH 30.7 pg (27.0-33.0); MCHC 34.1 % (32.0-36.0); MCV 90 fL (80-95); MPV 11.4 fL (8.0-11.0); Monocytes % 7.6; Neutrophils % 60.6; Platelet Count 127 10^3/uL (130-400); RBC 4.27 10^6/uL (4.36-5.78); RDW 14.8 % (11.8-14.1); RDW-SD 48.2 fL; WBC 7.85 10^3/uL (4.4-10.8)
[2023-10-20 15:01] LABS: Iron 79 ug/dL (65-175); Total Iron Binding Capacity 309 ug/dL (250-450); Transferrin Sat 26 % (20-55)
[2023-10-20 15:38] LABS: ALT 31 U/L (16-63); AST 19 U/L (15-37); Albumin 3.8 g/dL (3.4-5.0); Alkaline Phosphatase 76 U/L (46-116); BUN 22 mg/dL (7-18); Bilirubin, Total 0.8 mg/dL (0.2-1.0); CREATININE 1.3 mg/dL (0.70-1.30); Chloride 103 mmol/L (98-107); Glucose 174 mg/dL (74-106); Magnesium 1.5 mg/dL (1.8-2.4); Potassium 5.1 mmol/L (3.5-5.1); Sodium 139 mmol/L (136-145); TSH (W/Ref FT4) 1.61 uIU/mL (0.36-3.74); Total Protein 7.9 g/dL (6.4-8.2)
[2023-10-20 16:17] LABS: Ferritin 195 ng/mL (26-388)
[2023-10-20 16:22] LABS: Hemoglobin A1C 7.1 % (<5.7)
== END 2023-10-20 15:20 | disposition home or self-care (01) ==
LOC: NCHCN 15:19
PROVIDERS: PCP Nurse Practitioner Family; Visit Provider Nurse Practitioner Family
DX: E11.9 Type 2 diabetes mellitus without complications (principal); E02 Subclinical iodine-deficiency hypothyroidism; E83.42 Hypomagnesemia; E88.09 Other disorders of plasma-protein metabolism, not elsewhere classified; D64.9 Anemia, unspecified
CPT/HCPCS: 80053; 82728; 83036; 83540; 83550; 83735; 84443; 85025

== ENCOUNTER 2024-01-20 15:09 | Outpatient (REF) | payer MEDICARE, BC, SELFPAY ==
[2024-01-20 14:33] LABS: Abs Immature Grans 0.04 10^3/uL (0.0-0.06); Absolute Basophil Count 0.04 10^3/uL (0.0-0.2); Absolute Lymphocyte Count 1.73 10^3/uL (1.2-3.4); Absolute Neutrophil Count 4.12 10^3/uL (1.2-6.7); Basophils % 0.6; HCT 35.4 % (40.0-50.0); HGB 12.2 g/dL (13.5-17.5); Immature Grans % 0.6; Lymphocytes % 26.1; MCH 31.6 pg (27.0-33.0); MCHC 34.5 % (32.0-36.0); MCV 92 fL (80-95); MPV 11.1 fL (8.0-11.0); Monocytes % 7.5; Neutrophils % 62.2; Platelet Count 121 10^3/uL (130-400); RBC 3.86 10^6/uL (4.36-5.78); RDW 14.3 % (11.8-14.1); WBC 6.63 10^3/uL (4.4-10.8)
[2024-01-20 21:03] LABS: ALT 29 U/L (16-63); AST 22 U/L (15-37); Albumin 3.9 g/dL (3.4-5.0); Alkaline Phosphatase 77 U/L (46-116); Anion Gap 11.3 mmol/L (3-11); BUN 17 mg/dL (7-18); CO2 22.7 mmol/L (21.0-32.0); CREATININE 1.3 mg/dL (0.70-1.30); Calcium 9.3 mg/dL (8.5-10.1); Chloride 103 mmol/L (98-107); Ferritin 125 ng/mL (26-388); Glucose 209 mg/dL (74-106); Magnesium 1.6 mg/dL (1.8-2.4); Potassium 4.7 mmol/L (3.5-5.1); Sodium 137 mmol/L (136-145); Total Protein 7.3 g/dL (6.4-8.2)
[2024-01-20 21:12] LABS: Iron 77 ug/dL (65-175); Total Iron Binding Capacity 338 ug/dL (250-450); Transferrin Sat 23 % (20-55)
== END 2024-01-20 15:10 | disposition home or self-care (01) ==
LOC: NCHCN 15:09
PROVIDERS: PCP Nurse Practitioner Family; Visit Provider Nurse Practitioner Family
DX: D64.9 Anemia, unspecified (principal); E83.42 Hypomagnesemia; E88.09 Other disorders of plasma-protein metabolism, not elsewhere classified
CPT/HCPCS: 80053; 82728; 83540; 83550; 83735; 85025

== ENCOUNTER 2024-03-07 15:40 | Outpatient (REF) | payer MEDICARE, BC, SELFPAY ==
[2024-03-07 16:47] LABS: COMMENT (LAB VIEW ONLY) 185.36 mg/dL
[2024-03-07 17:08] LABS: Microalb ug/mg Crea 153.3 ug/mg Cr
== END 2024-03-07 15:41 | disposition home or self-care (01) ==
LOC: NCHCN 15:40
PROVIDERS: PCP Nurse Practitioner Family; Visit Provider Nurse Practitioner Family
DX: R35.0 Frequency of micturition (principal); R60.9 Edema, unspecified; B96.89 Other specified bacterial agents as the cause of diseases classified elsewhere
CPT/HCPCS: 87077; 82043; 82570; 87086; 87186

== ENCOUNTER 2024-03-22 01:59 | Outpatient (CLI) | payer MEDICARE, BC, SELFPAY ==
--- OUTSIDE RECORDS SUMMARY | 2024-03-22 02:00 | XMS_ITS | Continuity of Care Document ---
Author Name Unknown Organization [facility] Address [address] [place] [address] Care Team Providers Care Gang Punch Operator Name Role Phone MALIA MACK Primary Care Physician [phone] Encounter [facility] NBR [id number] Date(s): 10/26/23 - 10/26/[address] [address] [place] Encounter Diagnosis Pain in left shoulder(Final) - Discharge Disposition: Home or Self Care Attending Physician: MALIA MACK Admitting Physician: MALIA MACK Referring Physician: MALIA MACK Allergies, Adverse Reactions, Alerts Substance Reaction Severity Status meperidine Stomach upset Moderate Active Flagyl 1 Rash Mild Active morphine Stomach upset Moderate Active 1colchicine Medications acetaminophen 650 mg oral tablet, extended release 1,300 mg = 2 tab, Oral, every 8 hr, PRN as needed for pain, # 84 tab, 0 Refill(s), Pharmacy: [facility], 178, cm, 02/23/23 11:05:00 EDT, [...] BID, # 28 cap, 0 Refill(s), Pharmacy: [facility], 178, cm, 02/23/23 11:05:00 EDT, [...] Exam Date Time Procedure Performing Provider Status 10/26/23 2:52 PM MRI Shoulder w/o Contrast Right Ellie Diaz; Sole (Verified) Notes: (MRI Shoulder w/o Contrast Right) Reason For Exam: RT SHOULDER PAIN MRI Shoulder w/o Contrast Right EXAM DESCRIPTION: MRI Shoulder w/o Contrast Right 10/26/2023 INDICATION: RT SHOULDER PAIN, history of right shoulder surgery TECHNIQUE: Multiplanar MRI examination of the right shoulder utilizing T1, PD and fat-suppressed T2 technique COMPARISON: MRI right shoulder examination from 01/05/2023 FINDINGS: Linear susceptibility artifact in the lateral humeral head consistent with suture anchor which appears new since prior study. Focal area of T2 signal prolongation involving the anterior aspect of the distal supraspinatus tendon near its greater tuberosity insertion suspicious for focal full-thickness tear without tendon retraction, best seen on coronal oblique fat-suppressed T2 series image number 9 and sagittal oblique fat-suppressed T2 series image number 14. Additional abnormal signal involving the articular surface of the distal supraspinatus tendon suspicious for partial articular surface tear measuring approximately 14 mm in AP and transverse dimensions with involvement of approximately 50% of tendon thickness. No full-thickness infraspinatus or subscapularis tendon tear. Teres minor tendon insertion appears intact. Mild supraspinatus muscle atrophy which appears new since prior study. No additional rotator cuff muscle atrophy Mild fluid in the subacromial/subdeltoid bursa. AC joint arthritic changes with joint space narrowing and osteophyte formation. No significant downsloping of the acromion. Type 2 acromion. No os acromiale No significant glenohumeral joint arthritic changes. No glenohumeral joint effusion. Stable ovoid T1 and T2 hypointense lesion in the medial aspect of the humeral head most consistent with bone island. No regional marrow edema. Coracoacromial ligament is intact. Postsurgical changes in the proximal humerus suggesting previous biceps tenodesis. Short head biceps tendon origin appears intact. No labral tear identified on this non arthrogram study. No Hill-Sachs or Bankart lesion No regional muscle edema to suggest strain or myositis. IMPRESSION: Suture anchor in the humeral head consistent with previous rotator cuff repair Small focal full-thickness tear without tendon retraction involving the anterior aspect of the distal supraspinatus tendon near its greater tuberosity insertion as detailed above with additional broad-based partial articular surface tear involving the supraspinatus tendon more posteriorly. Mild supraspinatus muscle atrophy. Mild fluid in the subacromial/subdeltoid bursa Status post apparent biceps tenodesis. JOB #: [id number] Final Signed by: Pablito Arboleda MD Signed (Electronic Signature): 10/26/2023 4:12 pm Social History Social History Type Response [...] Safety Implantable Status Assigning Authority Unknown Unknown [id number] Unknown 10/26/25 Unknown Unknown Active Unk nown Unknown Unknown [id number] Unknown 12/24/26 Unknown Unknown Active Unk nown Patient Care team information Care Team Personnel Name: MALIA MACK Position: No Access Member Role: Primary Care Physician Address: Address: [facility] [address] [place] [address]- Care Team Related Persons Name: OSITO RAINEY Name: OSITO RAINEY Address: Home [address] [id number]
--- OUTSIDE RECORDS SUMMARY | 2024-03-22 02:00 | XMS_ITS | Continuity of Care Document ---
Author Name Unknown Organization [facility] Address [address] [place] [address] Care Team Providers Care [employer] Name Role Phone MALIA MACK Primary Care Physician [phone] Encounter [facility] NBR [id number] Date(s): 02/21/24 - 02/21/[address] [address]- Encounter Diagnosis Diverticulitis(Discharge Diagnosis) - 02/21/24 Diverticulitis of large intestine without perforation or abscess without bleeding(Final) - Personal history of nicotine dependence(Final) - Discharge Disposition: Home or Self Care Attending Physician: Jasson Valerio MD Admitting Physician: Jasson Valerio MD Allergies, Adverse Reactions, Alerts Substance Reaction Severity Status meperidine Stomach upset Moderate Active Flagyl 1 Rash Mild Active morphine Stomach upset Moderate Active 1colchicine Assessment and Plan Extracted from: Title:ED Provider Note Author:Paulie Trujillo MD D ate:02/21/24 Assessment/Plan 1.??Diverticulitis??K57.92 Ordered: amoxicillin-clavulanate 875 mg-125 mg oral tablet, 1 tab, Oral, every 12 hr, X 10 days, # 20 tab, 0 Refill(s), 03/02/24 11:34:00 EDT, Pharmacy: [id number], 178, cm, 02/21/24 9:01:00 EDT, Height, 98, kg, 02/21/24 9:08:00 EDT, Weight Dosing ?? Orders: amoxicillin-clavulanate 875 mg-125 mg oral tablet, 1 tab, Oral, Tab, Once, Antibiotic Indication Skin/Soft- Tissue Infection, First Dose: 02/21/24 12:00:00 EDT, Stop Date: 02/21/24 12:00:00 EDT, Physician Stop, Routine Discharge Patient, 02/21/24 11:34:00 EDT, Home Independently Patient Education Diverticulitis Follow Up With When Contact Information MALIA MACK Within 1 week [address] [place] [address]- ?? Additional Instructions: Tylenol/Motrin for Pain/Fever Relief Within 1 month Additional Instructions: Medications acetaminophen 650 mg oral tablet, extended [...] 0 Refill(s) Start Date: 12/01/22 Status: Ordered amoxicillin-clavulanate 875 mg-125 mg oral tablet 1 tab, Oral, every 12 hr, X 10 days, # 20 tab, 0 Refill(s), 03/02/24 10:34:00 AM CDT, Pharmacy: [facility][id number], 178, cm, 02/21/24 9:01:00 EDT, Height, 98, kg, 02/21/24 9:08:00 EDT, Weight Dosing Start Date: 02/21/24 Stop Date: 03/02/24 Status: Ordered aspirin 81 mg oral delayed [...] 0 Refill(s) Start Date: 12/01/22 Status: Ordered hydroCHLOROthiazide 12.5 mg oral capsule 12.5 mg = 1 cap, Oral, Daily, # 30 cap, 0 Refill(s) Start Date: 02/21/24 Status: Ordered Icosapent Ethyl 0.5 g oral capsule 2 g = 4 cap, Oral, BID, Vescepa, 0 Refill(s) Start Date: 12/01/22 Status: Ordered levothyroxine 88 mcg =, 0 Refill(s) Start Date: 02/21/24 Status: Ordered losartan 50 mg oral tablet [...] 0 Refill(s) Start Date: 03/09/23 Status: Ordered PriLOSEC 0 Refill(s) Start Date: 02/21/24 Status: Ordered tadalafil 5 mg =, Oral, every night at bedtime, 0 Refill(s) Start Date: 12/01/22 Status: Ordered Vascepa 1 g oral capsule 0 Refill(s) Start Date: 02/21/24 Status: Ordered Mental Status 02/21/24 Eye Opening Response Bomont Spontaneous ly Best Verbal Response Shalonda Oriented Best Motor Response Shalonda Obeys comman ds Shalonda Coma Score 15 Problem List Condition Confirmation Course Effective Dates [...] arm 4 2005 Completed Rotator cuff repair 2004 Com pleted Operative procedure on foot or toes Completed 1auto-populated from documented surgical case 2auto-populated from documented surgical case 3x 5 4fatty lump removed from right arm 5LEFT Results Laboratory List Name Date Urinalysis with Micro if Indicated and C ulture if Indicated 02/21/24 CBC w/ Diff 02/21/24 Comprehensive Metabolic Panel (CMP) 02/20 Lactic Acid 02/21/24 Lipase Level 02/21/24 Automated Diff 02/21/24 Most recent to oldest [Reference Range]: 1 WBC [4.8-10.8 K/mcL] 8.0 K/mcL (02/21/24 9:58 AM) RBC [4.70-6.10 Million/mcL] 3.65 Million /mcL *LOW* (02/21/24 9:58 AM) Neutro Auto [42.2-75.2 %] 71.3 % (02/21/24 9:58 AM) Lymph Auto [20.5-51.1 %] 16.7 % *LOW* (02/21/24 9:58 AM) [place] Auto [1.7-9.3 %] 7.5 % (02/21/24 9:58 AM) Basophil Auto [0.0-0.8 %] 1.2 % *HI* (02/21/24 9:58 AM) BUN [7-25 mg/dL] 17 mg/dL (02/21/24 9:58 AM) UA Color [Yellow] Yellow (02/21/24 11:16 AM) Glucose Level [70-109 mg/dL] 203 mg/dL *HI* (02/21/24 9:58 AM) Potassium Level [3.5-5.1 mmol/L] 4.6 mmo l/L (02/21/24 9:58 AM) Baso Absolute [0.0-0.2 K/mcL] 0.1 K/mcL (02/21/24 9:58 AM) MCV [80.0-94.0 fL] 93.3 fL (02/21/24 9:58 AM) UA Urobilinogen [0.2] 0.2 (02/21/24 11:16 AM) UA Bili [Negative] Negative (02/21/24 11:16 AM) UA Ketones [Negative] Negative (02/21/24 11:16 AM) AST [13-39 IntlUnit/L] 14 IntlUnit/L (02/21/24 9:58 AM) ALT [7-52 IntlUnit/L] 14 IntlUnit/L (02/21/24 9:58 AM) MCHC [32.0-37.0 g/dL] 34.8 g/dL (02/21/24 9:58 AM) Osmolality [275-295 mOsm/kg] 277 mOsm/kg (02/21/24 9:58 AM) Sodium Level [136-145 mmol/L] 135 mmol/L *LOW* (02/21/24 9:58 AM) UA Leuk Est [Negative] Negative (02/21/24 11:16 AM) Lymph Absolute [1.2-3.4 K/mcL] 1.3 K/mcL (02/21/24 9:58 AM) UA Nitrite [Negative] Negative (02/21/24 11:16 AM) UA Glucose [Negative] Negative (02/21/24 11:16 AM) Hct [42.0-52.0 %] 34.1 % *LOW* (02/21/24 9:58 AM) Lipase Level [11-82 unit/L] 34 unit/L 1 (02/21/24 9:58 AM) Calcium Level [8.6-10.3 mg/dL] 9.6 mg/dL (02/21/24 9:58 AM) [place] Absolute [0.1-0.6 K/mcL] 0.6 K/mcL (02/21/24 9:58 AM) Albumin Level [3.5-5.7 g/dL] 4.1 g/dL (02/21/24 9:58 AM) Protein Total [6.4-8.9 g/dL] 7.3 g/dL (02/21/24 9:58 AM) UA Protein [Negative] Negative (02/21/24 11:16 AM) MCH [27.0-31.0 pg] 32.5 pg *HI* (02/21/24 9:58 AM) Neutro Absolute [1.4-6.5 K/mcL] 5.7 K/mc L (02/21/24 9:58 AM) Bilirubin Total [0.3-1.0 mg/dL] 0.9 mg/d L (02/21/24 9:58 AM) Hgb [14.0-18.0 g/dL] 11.9 g/dL *LOW* (02/21/24 9:58 AM) Alk Phos [34-104 IntlUnit/L] 62 IntlUnit /L (02/21/24 9:58 AM) UA Blood [Negative] Negative *NA* (02/21/24 11:16 AM) MPV [7.4-10.4 fL] 8.6 fL (02/21/24 9:58 AM) UA Spec Grav [1.001-1.030] 1.020 (02/21/24 11:16 AM) Platelets [130-400 K/mcL] 104 K/mcL *LOW* (02/21/24 9:58 AM) CO2 [21-31 mmol/L] 22 mmol/L (02/21/24 9:58 AM) Eos Absolute [0.0-0.2 K/mcL] 0.3 K/mcL *HI* (02/21/24 9:58 AM) Lactic Acid Lvl [0.5-2.2 mmol/L] 1.3 mmo l/L (02/21/24 9:58 AM) UA pH [5.00-9.00] 5.50 (02/21/24 11:16 AM) UA Appear [Clear] Clear (02/21/24 11:16 AM) Chloride Level [98-107 mmol/L] 104 mmol/ L (02/21/24 9:58 AM) RDW-CV [11.5-14.5 %] 14.9 % *HI* (02/21/24 9:58 AM) A/G Ratio [1.0-2.5 g/dL] 1.3 g/dL (02/21/24 9:58 AM) BUN/Creat Ratio [8.0-20.0] 14.2 (02/21/24 9:58 AM) Globulin [2.3-3.5 g/dL] 3.2 g/dL (02/21/24 9:58 AM) Urine Srce Clean Catch (02/21/24 11:16 AM) Creatinine Level [0.70-1.30 mg/dL] 1.20 mg/dL (02/21/24 9:58 AM) Anion Gap [3.0-12.0] 9.0 (02/21/24 9:58 AM) Eos, Auto [0.00-3.00 %] 3.30 % *HI* (02/21/24 9:58 AM) eGFR CKD-EPI [>=60 mL/min/1.73 m2] 65 mL /min/1.73 m2 (02/21/24 9:58 AM) 1Interpretive Data: T-urtglu-y-benzoquinone imine (meabolite of Acetaminophen) will generate erroneously low lipase results in samples for patients that have taken toxic doses of acetaminophen. Radiology Reports * Exam Date Time Procedure Performing Provider Status 02/21/24 11:[address] Abdomen and Pelvi s w/ Contrast Ellie Zhang; Auth (Verified) Notes: (CT Abdomen and Pelvis w/ Contrast) Reason For Exam: llq abd/inguinal pain, ? hernia/divertic CT Abdomen and Pelvis w/ Contrast EXAM DESCRIPTION: CT Abdomen and Pelvis w/ Contrast 02/21/2024 INDICATION: LLQ ABD/INGUINAL PAIN, ? HERNIA/DIVERTIC TECHNIQUE: All CT scans at this facility use at least one of these dose optimization techniques: Automated exposure control; mA and/or kV adjustment per patient size (includes targeted exams where dose is matched to clinical indication); or iterative reconstruction. Technique: Axial CT images of the abdomen/pelvis with IV contrast administration 100 cc of Isovue-300 contrast was utilized COMPARISON: CT abdomen/pelvis with contrast from 06/08/2023 FINDINGS: No focal hepatic lesion. Normal enhancement of the main hepatic veins and main portal vein The spleen is enlarged measuring approximately 16 x 14 cm. This was described previously. No focal splenic lesion. Gallbladder not identified as described previously. Adrenal glands and pancreas appear within normal limits. Tiny low-attenuation right renal lesions without significant change, too small to characterize. Otherwise no focal renal mass, hydronephrosis or perinephric fluid collection on either side Normal caliber abdominal aorta with scattered atherosclerotic calcifications No retroperitoneal adenopathy in the abdomen or pelvis. No significant yanely hepatis adenopathy identified currently Mural thickening and adjacent mesenteric inflammatory stranding involving the distal descending colon and proximal sigmoid colon with multiple regional diverticula consistent with acute diverticulitis. No focal fluid collection to suggest abscess. No ascites or free intraperitoneal air. No bowel dilatation to suggest obstruction or ileus Mild subsegmental atelectasis or scarring in both lung bases. Mild prostate enlargement with indentation of the bladder base. No suspicious regional osseous lesions. IMPRESSION: Acute diverticulitis involving the distal descending colon and proximal sigmoid colon. No evidence of abscess or free air. Nonobstructive bowel pattern. Splenomegaly which was described previously. JOB #: [id number] Final Signed by: Pablito Arboleda MD Signed (Electronic Signature): 02/21/2024 11:14 am Vital Signs Most recent to oldest [Reference Range]: 1 2 3 Temperature Temporal Artery [36-38 Deg C] 36.3 Deg C (02/21/24 9:01 AM) Peripheral Pulse Rate [60-100 bpm] 59 bpm *LOW* (02/21/24 11:23 AM) 65 bpm (02/21/24 11:03 AM) 66 bpm (02/21/24 10:16 AM) Respiratory Rate [12-24 br/min] 16 br/min (02/21/24 11:23 AM) 16 br/min (02/21/24 10:16 AM) 16 br/min (02/21/24 9:43 AM) Blood Pressure [90-140/60-90 mmHg] 150/77mmHg *HI* (02/21/24 11:23 AM) 153/62mmHg *HI* (02/21/24 11:03 AM) 143/70mmHg *HI* (02/21/24 10:16 AM) Mean Arterial Pressure, Cuff [65-140 mmHg] 101 mmHg (02/21/24 11:23 AM) 92 mmHg (02/21/24 11:03 AM) 94 mmHg (02/21/24 10:16 AM) Mean Arterial Pressure Cuff 99 mmHg (02/21/24 11:23 AM) 88 mmHg (02/21/24 11:03 AM) 90 mmHg (02/21/24 10:16 AM) Weight 98 kg (02/21/24 9:01 AM) Weight Dosing 98.000 kg (02/21/24 9:01 AM) Height 178 cm (02/21/24 9:01 AM) Body Mass Index 30.93 kg/m2 (02/21/24 9:01 AM) Social History Social History Type Response [...] Safety Implantable Status Assigning Authority Unknown Unknown [id number] Unknown 10/26/25 Unknown Unknown Active Unk nown Unknown Unknown [id number] Unknown 12/24/26 Unknown Unknown Active Unk nown Hospital Discharge Instructions Patient Education 02/21/2024 10:34:02 Diverticulitis Diverticulitis Diverticulitis is infection or inflammation of small pouches (diverticula) in the colon that form due to a condition called diverticulosis. Diverticula can trap stool (feces) and bacteria, causing infection and inflammation. Diverticulitis may cause severe stomach pain and diarrhea. It may lead to tissue damage in the colon that causes bleeding or blockage. The diverticula may also burst (rupture) and cause infected stool to enter other areas of the abdomen. What are the causes? This condition is caused by stool becoming trapped in the diverticula, which allows bacteria to grow in the diverticula. This leads to inflammation and infection. What increases the risk? You are more likely to develop this condition if you have diverticulosis. The risk increases if you: ??? Are overweight or obese. ??? Do not get enough exercise. ??? Drink alcohol. ??? Use tobacco products. ??? Eat a diet that has a lot of red meat such as beef, pork, or corley. ??? Eat a diet that does not include enough fiber. High-fiber foods include fruits, vegetables, beans, nuts, and whole grains. ??? Are over 40 years of age. What are the signs or symptoms? Symptoms of this condition may include: ??? Pain and tenderness in the abdomen. The pain is normally located on the left side of the abdomen, but it may occur in other areas. ??? Fever and chills. ??? Nausea. ??? Vomiting. ??? Cramping. ??? Bloating. ??? Changes in bowel routines. ??? Blood in your stool. How is this diagnosed? This condition is diagnosed based on: ??? Your medical history. ??? A physical exam. ??? Tests to make sure there is nothing else causing your condition. These tests may include: ??? Blood tests. ??? Urine tests. ??? CT scan of the abdomen. How is this treated? Most cases of this condition are mild and can be treated at home. Treatment may include: ??? Taking yvzf-lew-jnkkrsz pain medicines. ??? Following a clear liquid diet. ??? Taking antibiotic medicines by mouth. ??? Resting. More severe cases may need to be treated at a hospital. Treatment may include: ??? Not eating or drinking. ??? Taking prescription pain medicine. ??? Receiving antibiotic medicines through an IV. ??? Receiving fluids and nutrition through an IV. ??? Surgery. When your condition is under control, your health care provider may recommend that you have a colonoscopy. This is an exam to look at the entire large intestine. During the exam, a lubricated, bendable tube is inserted into the anus and then passed into the rectum, colon, and other parts of the large intestine. A colonoscopy can show how severe your diverticula are and whether something else may be causing your symptoms. Follow these instructions at home: Medicines ??? Take ikkj-cdy-icflxap and prescription medicines only as told by your health care provider. These include fiber supplements, probiotics, and stool softeners. ??? If you were prescribed an antibiotic medicine, take it as told by your health care provider. Donot stop taking the antibiotic even if you start to feel better. ??? Ask your health care provider if the medicine prescribed to you requires you to avoid driving or using machinery. Eating and drinking ??? Follow a full liquid diet or another diet as directed by your health care provider. ??? After your symptoms improve, your health care provider may tell you to change your diet. He or she may recommend that you eat a diet that contains at least 25 grams (25 g) of fiber daily. Fiber makes it easier to pass stool. Healthy sources of fiber include: ??? Berries. One cup contains 4???8 grams of fiber. ??? Beans or lentils. One-half cup contains 5???8 grams of fiber. ??? Green vegetables. One cup contains 4 grams of fiber. ??? Avoid eating red meat. General instructions ??? Do not use any products that contain nicotine or tobacco, such as cigarettes, e-cigarettes, andchewing tobacco. If you need help quitting, ask your health care provider. ??? Exercise for at least 30 minutes, 3 times each week. You should exercise hard enough to raise your heart rate and break a sweat. ??? Keep all follow-up visits as told by your health care provider. This is important. You may needto have a colonoscopy. Contact a health care provider if: ??? Your pain does not improve. ??? Your bowel movements do not return to normal. Get help right away if: ??? Your pain gets worse. ??? Your symptoms do not get better with treatment. ??? Your symptoms suddenly get worse. ??? You have a fever. ??? You vomit more than one time. ??? You have stools that are bloody, black, or tarry. Summary ??? Diverticulitis is infection or inflammation of small pouches (diverticula) in the colon that form due to a condition called diverticulosis. Diverticula can trap stool (feces) and bacteria, causing infection and inflammation. ??? You are at higher risk for this condition if you have diverticulosis and you eat a diet that does not include enough fiber. ??? Most cases of this condition are mild and can be treated at home. More severe cases may need sayda treated at a hospital. ??? When your condition is under control, your health care provider may recommend that you have an exam called a colonoscopy. This exam can show how severe your diverticula are and whether something else may be causing your symptoms. ??? Keep all follow-up visits as told by your health care provider. This is important. This information is not intended to replace advice given to you by your health care provider. Make sure you discuss any questions you have with your health care provider. Document Revised: 06/24/2020 Document Reviewed: 06/24/2020 [employer] Patient Education ?? 2022 [employer]. Follow Up Care 02/21/2024 08:50:32 With:MALIA MACK Address: [address] [address]- When:1 week With:Tylenol/Motrin for Pain/Fever Relief Address:Unknown When:1 month Physician Emergency department Note * aPulie Trujillo MD: PERFORM Event Display: ED Note Physician Authored Date: [id number] CHRISTY RAINEY :1955 Age:68 years Sex:Male Visit Date:02/21/2024 Primary Care Physician: MALIA MACK Basic Information Time Seen: Paulie Trujillo MD / 02/21/2024 09:23 Chief Complaint last night bent over and when he stood up he began with LLQ pain. States he has a known hernia is is abdomen already. Pain worsens with movement and is tender. hx of diverticulitis, last flare was 20years ago. History Of Present Illness: 68-year-old male presents the ER complaining of left lower quadrant abdominal pain. ??The patient states the pain started yesterday after bending down and standing up. ??He felt the pain come on suddenly and felt that??sharp and severe in the left lower part of his abdomen. ??There was no fall or direct trauma. ??Since that time the pain has been intermittent, worse with different positions or movements.?? He has not felt any lumps or bumps to the area. ??No nausea, vomiting, or bowel change. ??No urinary symptoms. ??No fevers or chills. ??He had diverticulitis in the past but this feels somewhat different. ??He was worried about a hernia. Review of Systems: CONSTITUTIONAL:??No fevers or chills. EYES:??No change in vision. ENT:??No sore throat. ??No headache. ??No neck pain. CARDIOVASCULAR:??No chest pain, palpitations or passing out episodes. RESPIRATORY:??No cough, shortness of breath or hemoptysis. :??No change in urination. SKIN:??No rash. NEUROLOGIC:??No focal numbness or weakness. LYMPH:??No swelling. ?? Review of systems otherwise as stated in HPI Physical Exam Vitals & Measurements T:??36.3?C ??(Temporal Artery)?? HR:??59??(Peripheral)?? RR:??16?? BP:??150/77?? SpO2:??97%?? HT:??178??cm?? WT:??98??kg?? BMI:??30.93?? Pain Score:??4?? GENERAL:??Awake and alert, intermittent discomfort with position change. HEENT:??Normocephalic, atraumatic. ??Mucous membranes are moist. HEART:??Regular rate and rhythm. ??S1 and S2. LUNGS:??Clear to auscultation bilaterally. ??No respiratory distress. ABDOMEN:??Obese, soft. ??Visible large ventral hernia??spontaneously reducible.?? There is severe pinpoint tenderness to the left lower quadrant of the abdomen. ??No guarding or rebound. ??No palpable masses.?? Remainder the abdomen is soft and nontender.?? No inguinal tenderness??or testicular tend erness. BACK:??Normal to inspection and nontender.?? No CVA tenderness. EXTREMITIES:??Nontender and without edema. NEUROLOGIC:??Awake, alert, and oriented x3. ??Motor and sensory grossly intact. SKIN:??Warm and dry. VASCULAR:??Radial 2+ bilaterally. Medical Decision Making: Diverticulitis. ??Patient presents with left lower quadrant abdominal pain with moderate tenderness.?? He has a nonperitoneal exam and stable vital signs. ??Laboratory studies are overall unremarkable. ??CT was obtained??which shows acute??uncomplicated diverticulitis.?? Pain improved after Toradoland Tylenol??and he is resting comfortably on reevaluation.?? He was felt to be safe for discharge home. ??The patient lists a an allergy to Flagyl and I will start him on Augmentin which should provide appropriate coverage. ??He should use ibuprofen and Tylenol for pain, keep hydrated, use gentle diet. ??Follow-up with primary care??for recheck in the office in 1 week, return for new or worsening symptoms that were discussed with him. Procedure No Qualifying Data Assessment/Plan 1.??Diverticulitis??K57.92 Ordered: amoxicillin-clavulanate 875 mg-125 mg oral tablet, 1 tab, Oral, every 12 hr, X 10 days, # 20 tab, 0Refill(s), 03/02/24 11:34:00 EDT, Pharmacy: [facility], 178, cm, 02/21/24 9:01:00 EDT, Height, 98, kg, 02/21/24 9:08:00 EDT, Weight Dosing ?? Orders: amoxicillin-clavulanate 875 mg-125 mg oral tablet, 1 tab, Oral, Tab, Once, Antibiotic Indication Skin/Soft- Tissue Infection, First Dose: 02/21/24 12:00:00 EDT, Stop Date: 02/21/24 12:00:00 EDT, Physician Stop, Routine Discharge Patient, 02/21/24 11:34:00 EDT, Home Independently Patient Education Diverticulitis Follow Up With When Contact Information MALIA MACK Within 1 week [address] [place], [place] [id number]- Additional Instructions: Tylenol/Motrin for Pain/Fever Relief Within 1 month Additional Instructions: Medication Reconciliation New Prescription amoxicillin-clavulanate (amoxicillin-clavulanate 875 mg-125 mg oral tablet)1 tab Oral (given by mouth) every 12 hours for 10 Days. Refills: 0. ?? Unchanged acetaminophen (acetaminophen 650 mg oral tablet, extended release)2 tab Oral (given by mouth) every8 hours as needed as needed for pain. Refills: 0. ?? allopurinol (allopurinol 100 mg oral tablet)1 tab Oral (given by mouth) every day. ?? aspirin (aspirin 81 mg oral delayed release tablet)1 tab Oral (given by mouth) every day. ?? atorvastatin (atorvastatin 20 mg oral tablet)1 tab Oral (given by mouth) every evening. ?? celecoxib (celecoxib 200 mg oral capsule)1 Capsules Oral (given by mouth) 2 times a day for 14 Days. Refills: 0. ?? gabapentin (gabapentin 300 mg oral capsule)1 Capsules Oral (given by mouth) every night at bedtime. ?? glipiZIDE (glipiZIDE 2.5 mg oral tablet, extended release)1 tab Oral (given by mouth) every day. ?? hydroCHLOROthiazide (hydroCHLOROthiazide 12.5 mg oral capsule)1 Capsules Oral (given by mouth) every day. ?? icosapent (Icosapent Ethyl 0.5 g oral capsule)4 Capsules Oral (given by mouth) 2 times a day. Vescepa. ?? icosapent (Vascepa 1 g oral capsule) ?? [id number] Micrograms. ?? losartan (losartan 50 mg oral tablet)1 tab Oral (given by mouth) every day. ?? melatonin (melatonin 5 mg oral tablet)1 tab Oral (given by mouth) every night at bedtime as needed as needed for insomnia. ?? metFORMIN (metFORMIN 1000 mg oral tablet)1 tab Oral (given by mouth) 2 times a day. ?? [id number] Milligrams Oral (given by mouth) every 8 hours as needed as needed for pain. ?? omeprazole (PriLOSEC) ?? [id number] Milligrams Oral (given by mouth) every night at bedtime. Problem List/Past Medical History Ongoing Abnormal gastric [...] repair (2004)???Operative procedure on foot or toes Medication Administration Given Sodium Chloride 0.9%, 1000 mL, Medication Bolus acetaminophen, 1000 mg, IV Piggyback Toradol, 30 mg, IV Push Allergies meperidine??(Stomach upset) morphine??(Stomach upset) Flagyl??(Rash) Social History Alcohol Current, 1-2 times per month Electronic Cigarette/Vaping Electronic Cigarette Use: Never. Substance Use Never Tobacco Former tobacco user Tobacco Use:. 13 year(s).- Comments: Quit in 1980 Family History Arthritis: Mother. Diabetes mellitus: Grandmother (M). Heart attack: Father. Rheumatoid arthritis: Mother. Diagnostic Results CT Abdomen and Pelvis w/ Contrast 02/21/2024 11:[address] Abdomen and Pelvis w/ Contrast ?? 02/21/24 11:14:07 EXAM DESCRIPTION: CT Abdomen and Pelvis w/ Contrast ?? 02/21/2024 ?? INDICATION: LLQ ABD/INGUINAL PAIN, ? HERNIA/DIVERTIC ?? TECHNIQUE: All CT scans at this facility use at least one of these dose optimization techniques: Automated exposure control; mA and/or kV adjustment per patient size (includes targeted exams where dose is matched to clinical indication); or iterative reconstruction. ?? Technique: Axial CT images of the abdomen/pelvis with IV contrast administration ?? 100 cc of Isovue-300 contrast was utilized ?? COMPARISON: CT abdomen/pelvis with contrast from 06/08/2023 ?? FINDINGS: No focal hepatic lesion. Normal enhancement of the main hepatic veins and main portal vein ?? The spleen is enlarged measuring approximately 16 x 14 cm. This was described previously. No focal splenic lesion. ?? Gallbladder not identified as described previously. ?? Adrenal glands and pancreas appear within normal limits. ?? Tiny low-attenuation right renal lesions without significant change, too small to characterize. Otherwise no focal renal mass, hydronephrosis or perinephric fluid collection on either side ?? Normal caliber abdominal aorta with scattered atherosclerotic calcifications ?? No retroperitoneal adenopathy in the abdomen or pelvis. No significant yanely hepatis adenopathy identified currently ?? Mural thickening and adjacent mesenteric inflammatory stranding involving the distal descending colon and proximal sigmoid colon with multiple regional diverticula consistent with acute diverticulitis. No focal fluid collection to suggest abscess. No ascites or free intraperitoneal air. No bowel dilatation to suggest obstruction or ileus ?? Mild subsegmental atelectasis or scarring in both lung bases. ?? Mild prostate enlargement with indentation of the bladder base. ?? No suspicious regional osseous lesions. ?? IMPRESSION: Acute diverticulitis involving the distal descending colon and proximal sigmoid colon. No evidence of abscess or free air. Nonobstructive bowel pattern. ?? Splenomegaly which was described previously. ? JOB #: [id number] Electronically Signed By: ?? Signed By: Pablito Arboleda MD Lab Results CBC and Differential?? LATEST RESULTS?? WBC?? 02/21/24 09:58?? 8.0?? RBC?? 02/21/24 09:58?? 3.65 ??Low?? Hgb?? 02/21/24 09:58?? 11.9 ??Low?? Hct?? 02/21/24 09:58?? 34.1 ??Low?? MCV?? 02/21/24 09:58?? 93.3?? MCH?? 02/21/24 09:58?? 32.5 ??High?? MCHC?? 02/21/24 09:58?? 34.8?? RDW-CV?? 02/21/24 09:58?? 14.9 ??High?? Platelets?? 02/21/24 09:58?? 104 ??Low?? MPV?? 02/21/24 09:58?? 8.6?? Neutro Auto?? 02/21/24 09:58?? 71.3?? Lymph Auto?? 02/21/24 09:58?? 16.7 ??Low?? [place] Auto?? 02/21/24 09:58?? 7.5?? Eos, Auto?? 02/21/24 09:58?? 3.30 ??High?? Basophil Auto?? 02/21/24 09:58?? 1.2 ??High?? Neutro Absolute?? 02/21/24 09:58?? 5.7?? Lymph Absolute?? 02/21/24 09:58?? 1.3?? [place] Absolute?? 02/21/24 09:58?? 0.6?? Eos Absolute?? 02/21/24 09:58?? 0.3 ??High?? Baso Absolute?? 02/21/24 09:58?? 0.1? Routine Chemistry?? LATEST RESULTS?? Sodium Level?? 02/21/24 09:58?? 135 ??Low?? Potassium Level?? 02/21/24 09:58?? 4.6?? Chloride Level?? 02/21/24 09:58?? 104?? CO2?? 02/21/24 09:58?? 22?? Alk Phos?? 02/21/24 09:58?? 62?? AST?? 02/21/24 09:58?? 14?? ALT?? 02/21/24 09:58?? 14?? BUN?? 02/21/24 09:58?? 17?? Glucose Level?? 02/21/24 09:58?? 203 ??High?? Creatinine Level?? 02/21/24 09:58?? 1.20?? BUN/Creat Ratio?? 02/21/24 09:58?? 14.2?? eGFR CKD-EPI?? 02/21/24 09:58?? 65?? Calcium Level?? 02/21/24 09:58?? 9.6?? Protein Total?? 02/21/24 09:58?? 7.3?? Albumin Level?? 02/21/24 09:58?? 4.1?? Globulin?? 02/21/24 09:58?? 3.2?? A/G Ratio?? 02/21/24 09:58?? 1.3?? Bilirubin Total?? 02/21/24 09:58?? 0.9?? Anion Gap?? 02/21/24 09:58?? 9.0?? Lactic Acid Lvl?? 02/21/24 09:58?? 1.3?? Lipase Level?? 02/21/24 09:58?? 34?? Osmolality?? 02/21/24 09:58?? 277? UA Macroscopic?? LATEST RESULTS?? Urine Srce?? 02/21/24 11:16?? Clean Catch?? UA Color?? 02/21/24 11:16?? Yellow?? UA Appear?? 02/21/24 11:16?? Clear?? UA Glucose?? 02/21/24 11:16?? Negative?? UA Bili?? 02/21/24 11:16?? Negative?? UA Ketones?? 02/21/24 11:16?? Negative?? UA Spec Grav?? 02/21/24 11:16?? 1.020?? UA Blood?? 02/21/24 11:16?? Negative?? UA pH?? 02/21/24 11:16?? 5.50?? UA Protein?? 02/21/24 11:16?? Negative?? UA Urobilinogen?? 02/21/24 11:16?? 0.2?? UA Nitrite?? 02/21/24 11:16?? Negative?? UA Leuk Est?? 02/21/24 11:16?? Negative? Electronically Signed on 02/21/2024 11:36 EDT Paulie Trujillo MD Emergency department Discharge instructions * Paulie Trujillo MD: PERFORM Event Display: ED Discharge Information Authored Date: [id number] CHRISTY RAINEY :1955 Age:68 years Sex:Male Visit Date:02/21/2024 Primary Care Physician: MALIA MACK Discharge Instructions We would like to thank you for allowing us to assist you with your healthcare needs. The following includes patient education materials and information regarding your injury/illness. Diagnosis from Today's Visit Diverticulitis Discharge Vitals Temperature??(Temporal Artery) 97.3 ??F (36.3 ??C) Heart Rate??(Peripheral) 59 Respiratory Rate?? 16 Blood Pressure?? 150/77?? SpO2?? 97% Height?? 70.08 in (178 cm) Weight?? 216.09 lb (98 kg) BMI?? 30.93 Allergies meperidine??(Stomach upset) morphine??(Stomach upset) Flagyl??(Rash) What to Do Next You Need to Schedule the Following Appointments Follow Up with??MALIA MACK When:??Within 1 week Where: [address] [place] [address]- Follow Up with??Tylenol/Motrin for Pain/Fever Relief When:??Within 1 month You were treated today on an emergency basis; it may be emanuel to contact your primary care provider to notify them of your visit today. You may have been referred to your regular doctor or a specialist, please follow up as instructed. If your condition worsens or you can't get in to see the doctor, contact the Emergency Department. Medications What How Much When Why Instructions Next Dose New amoxicillin-clavulanate (amoxicillin-clavulanate 875 mg-125 mg oral tablet) 1 tab Oral (given by mouth) Every 12 hours Diverticulitis Duration: 10 Days Pickup at [facility] Unchanged acetaminophen (acetaminophen 650 mg oral tablet, extended release) 2 tab Oral (given by mouth) Every 8 hours as needed for as needed for pain Tear of right rotator cuff Unchanged allopurinol (allopurinol 100 mg oral tablet) 1 tab Oral (given by mouth) Every day Unchanged aspirin (aspirin 81 mg oral delayed release tablet) 1 tab Oral (given by mouth) Every day Unchanged atorvastatin (atorvastatin 20 mg oral tablet) 1 tab Oral (given by mouth) Every evening Unchanged celecoxib (celecoxib 200 mg oral capsule) 1 Capsules Oral (given by mouth) 2 times a day Tear of right rotator cuff Duration: 14 Days Unchanged gabapentin (gabapentin 300 mg oral capsule) 1 Capsules Oral (given by mouth) Every night at bedtime Unchanged glipiZIDE (glipiZIDE 2.5 mg oral tablet, extended release) 1 tab Oral (given by mouth) Every day Unchanged hydroCHLOROthiazide (hydroCHLOROthiazide 12.5 mg oral capsule) 1 Capsules Oral (given by mouth) Every day Unchanged icosapent (Icosapent Ethyl 0.5 g oral capsule) 4 Capsules Oral (given by mouth) 2 times a day Vescepa ?? Unchanged icosapent (Vascepa 1 g oral capsule) Unchanged levothyroxine 88 Micrograms Unchanged losartan (losartan 50 mg oral tablet) 1 tab Oral (given by mouth) Every day Unchanged melatonin (melatonin 5 mg oral tablet) 1 tab Oral (given by mouth) Every night at bedtime as needed for as needed for insomnia Unchanged metFORMIN (metFORMIN 1000 mg oral tablet) 1 tab Oral (given by mouth) 2 times a day Unchanged naproxen 220 Milligrams Oral (given by mouth) Every 8 hours as needed for as needed for pain Unchanged omeprazole (PriLOSEC) Unchanged tadalafil 5 Milligrams Oral (given by mouth) Every night at bedtime Pharmacy Information [facility]: [address], [place] [id number] [phone] Education Materials Diverticulitis Diverticulitis is infection or inflammation of small pouches (diverticula) in the colon that form due to a condition called diverticulosis. Diverticula can trap stool (feces) and bacteria, causing infection and inflammation. Diverticulitis may cause severe stomach pain and diarrhea. It may lead to tissue damage in the colon that causes bleeding or blockage. The diverticula may also burst (rupture) and cause infected stool to enter other areas of the abdomen. What are the causes? This condition is caused by stool becoming trapped in the diverticula, which allows bacteria to grow in the diverticula. This leads to inflammation and infection. What increases the risk? You are more likely to develop this condition if you have diverticulosis. The risk increases if you: ? Are overweight or obese. ? Do not get enough exercise. ? Drink alcohol. ? Use tobacco products. ? Eat a diet that has a lot of red meat such as beef, pork, or corley. ? Eat a diet that does not include enough fiber. High-fiber foods include fruits, vegetables, beans, nuts, and whole grains. ? Are over 40 years of age. What are the signs or symptoms? Symptoms of this condition may include: ? Pain and tenderness in the abdomen. The pain is normally located on the left side of the abdomen, but it may occur in other areas. ? Fever and chills. ? Nausea. ? Vomiting. ? Cramping. ? Bloating. ? Changes in bowel routines. ? Blood in your stool. How is this diagnosed? This condition is diagnosed based on: ? Your medical history. ? A physical exam. ? Tests to make sure there is nothing else causing your condition. These tests may include: ? Blood tests. ? Urine tests. ? CT scan of the abdomen. How is this treated? Most cases of this condition are mild and can be treated at home. Treatment may include: ? Taking niwx-yvi-evaijrq pain medicines. ? Following a clear liquid diet. ? Taking antibiotic medicines by mouth. ? Resting. More severe cases may need to be treated at a hospital. Treatment may include: ? Not eating or drinking. ? Taking prescription pain medicine. ? Receiving antibiotic medicines through an IV. ? Receiving fluids and nutrition through an IV. ? Surgery. When your condition is under control, your health care provider may recommend that you have a colonoscopy. This is an exam to look at the entire large intestine. During the exam, a lubricated, bendable tube is inserted into the anus and then passed into the rectum, colon, and other parts of the large intestine. A colonoscopy can show how severe your diverticula are and whether something else may be causing your symptoms. Follow these instructions at home: Medicines ? Take qlvd-lvg-smepgff and prescription medicines only as told by your health care provider. These include fiber supplements, probiotics, and stool softeners. ? If you were prescribed an antibiotic medicine, take it as told by your health care provider. Do notstop taking the antibiotic even if you start to feel better. ? Ask your health care provider if the medicine prescribed to you requires you to avoid driving or using machinery. Eating and drinking ? Follow a full liquid diet or another diet as directed by your health care provider. ? After your symptoms improve, your health care provider may tell you to change your diet. He or she may recommend that you eat a diet that contains at least 25 grams (25 g) of fiber daily. Fiber makesit easier to pass stool. Healthy sources of fiber include: ? Berries. One cup contains 4???8 grams of fiber. ? Beans or lentils. One-half cup contains 5???8 grams of fiber. ? Green vegetables. One cup contains 4 grams of fiber. ? Avoid eating red meat. General instructions ? Do not use any products that contain nicotine or tobacco, such as cigarettes, e- cigarettes, and chewing tobacco. If you need help quitting, ask your health care provider. ? Exercise for at least 30 minutes, 3 times each week. You should exercise hard enough to raise your heart rate and break a sweat. ? Keep all follow-up visits as told by your health care provider. This is important. You may need to have a colonoscopy. Contact a health care provider if: ? Your pain does not improve. ? Your bowel movements do not return to normal. Get help right away if: ? Your pain gets worse. ? Your symptoms do not get better with treatment. ? Your symptoms suddenly get worse. ? You have a fever. ? You vomit more than one time. ? You have stools that are bloody, black, or tarry. Summary ? Diverticulitis is infection or inflammation of small pouches (diverticula) in the colon that form due to a condition called diverticulosis. Diverticula can trap stool (feces) and bacteria, causing infection and inflammation. ? You are at higher risk for this condition if you have diverticulosis and you eat a diet that does not include enough fiber. ? Most cases of this condition are mild and can be treated at home. More severe cases may need to be treated at a hospital. ? When your condition is under control, your health care provider may recommend that you have an examcalled a colonoscopy. This exam can show how severe your diverticula are and whether something elsemay be causing your symptoms. ? Keep all follow-up visits as told by your health care provider. This is important. This information is not intended to replace advice given to you by your health care provider. Make sure you discuss any questions you have with your health care provider. Document Revised: 06/24/2020 Document Reviewed: 06/24/2020 [employer] Patient Education ?? 2022 [employer] Tests Performed Radiology CT Abdomen and Pelvis w/ Contrast 02/21/2024 11:16 EDT Medications and Immunizations Administered Given Sodium Chloride 0.9%, 1000 mL, Medication Bolus acetaminophen, 1000 mg, IV Piggyback Toradol, 30 mg, IV Push Lab Test Name Test Result Date/Time WBC 8.0 K/mcL 02/21/2024 09:58 EDT RBC 3.65 Million/mcL 02/21/2024 09:58 EDT Hgb 11.9 g/dL 02/21/2024 09:58 EDT Hct 34.1 % 02/21/2024 09:58 EDT MCV 93.3 fL 02/21/2024 09:58 EDT MCH 32.5 pg 02/21/2024 09:58 EDT MCHC 34.8 g/dL 02/21/2024 09:58 EDT RDW-CV 14.9 % 02/21/2024 09:58 EDT Platelets 104 K/mcL 02/21/2024 09:58 EDT MPV 8.6 fL 02/21/2024 09:58 EDT Neutro Auto 71.3 % 02/21/2024 09:58 EDT Lymph Auto 16.7 % 02/21/2024 09:58 EDT [place] Auto 7.5 % 02/21/2024 09:58 EDT Eos, Auto 3.30 % 02/21/2024 09:58 EDT Basophil Auto 1.2 % 02/21/2024 09:58 EDT Neutro Absolute 5.7 K/mcL 02/21/2024 09:58 EDT Lymph Absolute 1.3 K/mcL 02/21/2024 09:58 EDT [place] Absolute 0.6 K/mcL 02/21/2024 09:58 EDT Eos Absolute 0.3 K/mcL 02/21/2024 09:58 EDT Baso Absolute 0.1 K/mcL 02/21/2024 09:58 EDT Sodium Level 135 mmol/L 02/21/2024 09:58 EDT Potassium Level 4.6 mmol/L 02/21/2024 09:58 EDT Chloride Level 104 mmol/L 02/21/2024 09:58 EDT CO2 22 mmol/L 02/21/2024 09:58 EDT Alk Phos 62 IntlUnit/L 02/21/2024 09:58 EDT AST 14 IntlUnit/L 02/21/2024 09:58 EDT ALT 14 IntlUnit/L 02/21/2024 09:58 EDT BUN 17 mg/dL 02/21/2024 09:58 EDT Glucose Level 203 mg/dL 02/21/2024 09:58 EDT Creatinine Level 1.20 mg/dL 02/21/2024 09:58 EDT BUN/Creat Ratio 14.2 02/21/2024 09:58 EDT eGFR CKD-EPI 65 mL/min/1.73 m2 02/21/2024 09:58 EDT Calcium Level 9.6 mg/dL 02/21/2024 09:58 EDT Protein Total 7.3 g/dL 02/21/2024 09:58 EDT Albumin Level 4.1 g/dL 02/21/2024 09:58 EDT Globulin 3.2 g/dL 02/21/2024 09:58 EDT A/G Ratio 1.3 g/dL 02/21/2024 09:58 EDT Bilirubin Total 0.9 mg/dL 02/21/2024 09:58 EDT Anion Gap 9.0 02/21/2024 09:58 EDT Lactic Acid Lvl 1.3 mmol/L 02/21/2024 09:58 EDT Lipase Level 34 unit/L 02/21/2024 09:58 EDT Osmolality 277 mOsm/kg 02/21/2024 09:58 EDT Urine Srce Clean Catch 02/21/2024 11:16 EDT UA Color YELLOW. 02/21/2024 11:16 EDT UA Appear CLEAR. 02/21/2024 11:16 EDT UA Glucose NEGATIVE 02/21/2024 11:16 EDT UA Bili NEGATIVE 02/21/2024 11:16 EDT UA Ketones NEGATIVE 02/21/2024 11:16 EDT UA Spec Grav 1.020 02/21/2024 11:16 EDT UA Blood NEGATIVE 02/21/2024 11:16 EDT UA pH 5.50 02/21/2024 11:16 EDT UA Protein NEGATIVE 02/21/2024 11:16 EDT UA Urobilinogen 0.2 02/21/2024 11:16 EDT UA Nitrite NEGATIVE 02/21/2024 11:16 EDT UA Leuk Est NEGATIVE 02/21/2024 11:16 EDT Patient/Lighting Director Signature Patient Name:RAINEY, CHRISTY I have received this information and my questions have been answered. Patient/Lighting Director Name: Patient/Lighting Director Signature: Relationship to Patient: Witness Name/Signature: Date: Electronically Signed on: 02/21/2024 11:34 EDTSigned by: Patient Care team information Care Team Personnel Name: MALIA MCAK Position: No Access Member Role: Primary Care Physician Address: Address: [address] [id number] Care Team Related Persons Name: OSITO RAINEY Name: OSITO RAINEY Address: Home [address] [place] [phone]
[2024-03-25 20:32] LABS: Babesia divergens/MO-1 Negative (Negative); Babesia duncani Negative (Negative); Babesia microti Negative (Negative)
== END 2024-03-22 02:00 | disposition home or self-care (01) ==
PROVIDERS: PCP Nurse Practitioner Family; Visit Provider Nurse Practitioner Family
DX: D64.9 Anemia, unspecified (principal)
CPT/HCPCS: 36415; 87798

== ENCOUNTER 2024-05-18 15:09 | Outpatient (REF) | payer MEDICARE, BC, SELFPAY ==
--- OUTSIDE RECORDS SUMMARY | 2024-05-18 15:15 | XMS_ITS | Encounter Summary ---
Author Organization [facility] [place] [address] Care Team Providers Care Spray Machine Loader Name Role Phone Veronica Campbell CHRISTEL Primary Care Provider [phone] Encounter Details Date Type Department Care Team (Late st Contact Info) Description 12/28/2023 Orders [place] [address] Higinio Villalobos MD [facility] [place] [address] Right shoulder pain, unspecified chronicity Social History Tobacco Use Types Packs/Day Years Used Date Smoking Tobacco: Former Cigarettes 1.5 15 1 11/03/1969 - 09/02/1985 Smokeless Tobacco: Never Alcohol Use Standard Drinks/Week Comments Not Currently 0 (1 standard drink = 0.6 oz pur e alcohol) rare Sex and Gender Information Value Date Recorded Sex Assigned at Not on file Gender Identity Not on file Sexual Orientation Not on file documented as of this encounter Progress Notes * Jocelyn Arvizu MA - 12/28/2023 3:25 PM EDT Patient would like this to be scheduled HANK and to be added to the cancellation list. Patient's request for injection appointment of the Right Shoulder has been reviewed by Clinical Support. Is it too soon for patient to have this injection? No Date of last injection? N/A - order pended per Dr. Villalobos request Is this a high dollar injection? No Enter High Dollar Prior Auth if Synvisc or Orthovisc injection. Does this injection need to be scheduled in radiology under fluoro? yes Have orders been placed? pending Injection within 3 months prior to joint arthroplasty or arthroscopy is associated with increased rates of postoperative infection: this includes, hip, knee, and shoulder. documented in this encounter Plan of Treatment Upcoming Encounters Date Type Department Care Team (Late st Contact Info) Description 05/24/2024 2:00 PM EDT Office Visit [place] [address] Bernard Linares MD [facility] [place] [address] 09/07/2024 3:00 PM EST Office Visit Dermatology at [address] [address] Jeremiah Preston MD [facility] DR [facility] [address] documented as of this encounter Visit Diagnoses Diagnosis Right shoulder pain, unspecified chronicity documented in this encounter Care Teams Spray Machine Loader Relationship Specialty Start Date End Date Veronica Campbell APRN [address] [place] [address] PCP - General Family Medicine 01/18/22 documented as of this encounter
--- OUTSIDE RECORDS SUMMARY | 2024-05-18 15:15 | XMS_ITS | Encounter Summary ---
Author Organization [facility] Address [address] [place] [address] Care Team Providers Care Exit Booth Agent Name Role Phone Unavailable Primary Care Provider Unavailabl e Encounter Details Date Type Department Care Team (Late st Contact Info) Description 10/02/2005 12:19 EST Hospital Encounter [facility] [address] [place] [address] Sukhjinder Oviedo MD [address] [place] [phone] Discharge Disposition: Auto Discharge Social History Tobacco Use Types Packs/Day Years Used Date Smoking Tobacco: Never Assessed Sex and Gender Information Value Date Recorded Sex Assigned at Not on file Gender Identity Not on file Sexual Orientation Not on file documented as of this encounter Discharge Disposition Disposition Code Departure Means Destination Auto Discharge documented in this encounter Plan of Treatment Not on file documented as of this encounter Procedures Procedure Name Priority Date/Time Associated Diagnosis Comments MR CERVICAL SPINE WO CONTRAST 10/02/2005 15:45 EST MR EXTREMITY ELBOW W CONTRAST 10/02/2005 15:45 EST ORBITS FOR FOREIGN BODY 10/02/2005 14:24 EST FL GUIDE LOCATION, ASPIRATION, INJECTION, BIOPSY 10/02/2005 13:35 EST documented in this encounter Results * MR CERVICAL SPINE WO CONTRAST (10/02/2005 15:45 EST) Anatomical Region Laterality Modality Other 10/02/2005 15:4 5 EST Narrative 04/26/2009 2:24 EDT LEFT SHOUDLER WEAKNESS, LIFTING INJURY X 2, DIFFUSE LEFT ARM WEAKNESS MR OF THE CERVICAL SPINE CLINICAL INFORMATION: Left shoulder weakness, possible SLAP lesion. TECHNICAL FACTORS: Multiplanar T1 and T2 weighted fast spin-echo and gradient-echo imaging utilizing standard technique. FINDINGS: 1. ??Normal craniocervical junction. 2. ??There is degenerative cervical spondylosis at C3-C4 and C4-C5 levels and also at C6-C7. 3. ??Transaxially, C2-C3 is normal. ??C3-C4 demonstrates a shallow central and concentric protrusion causing slight effacement of the ventral CSF column and mild right foraminal narrowing. ??At C4-C5, there is a shallow concentric protrusion and associated left foraminal uncinate spur causing leftward foraminal narrowing. C5-C6 is unremarkable in the transaxial plane with the exception of mild leftward mixed spondylotic protrusion. ??At C6-C7, there is also a concentric and leftward mixed spondylotic protrusion. 4. ??The oblique imaging in this patient with left-sided shoulder symptoms demonstrates a normal C2-C3 neural foramen. ??At C3-C4, there is a leftward protrusion causing mild left neural foraminal compromise. ??There is a similar finding at C4-C5. ??C5-C6 is unremarkable. ??C6-C7 leftward neural foramen is also mildly compromised secondary to a leftward protrusion. IMPRESSIONS: There is multilevel degenerative cervical spondylosis including a shallow concentric protrusion at C3-C4 and a concentric protrusion with associated leftward uncinate spur at C4-C5, which may be a symptomatic level in this patient. ??At C5-C6, there is leftward uncinate spurring as well with mild foraminal narrowing. ??At C6-C7, there is a concentric protrusion. ??If symptoms persist or worsen and if surgery is ??a consideration, then CT myelography may be an appropriate ancillary examination in this particular patient to identify the symptomatic level. /jesse Procedure Note Dustin Hassan MD - 04/26/2009 LEFT SHOUDLER WEAKNESS, LIFTING INJURY X 2, DIFFUSE LEFT ARM WEAKNESS MR OF THE CERVICAL SPINE CLINICAL INFORMATION: Left shoulder weakness, possible SLAP lesion. TECHNICAL FACTORS: Multiplanar T1 and T2 weighted fast spin-echo and gradient-echo imaging utilizing standard technique. FINDINGS: 1. Normal craniocervical junction. 2. There is degenerative cervical spondylosis at C3-C4 and C4-C5 levels and also at C6-C7. 3. Transaxially, C2-C3 is normal. C3-C4 demonstrates a shallow central and concentric protrusion causing slight effacement of the ventral CSF column and mild right foraminal narrowing. At C4-C5, there is a shallow concentric protrusion and associated left foraminal uncinate spur causing leftward foraminal narrowing. C5-C6 is unremarkable in the transaxial plane with the exception of mild leftward mixed spondylotic protrusion. At C6-C7, there is also a concentric and leftward mixed spondylotic protrusion. 4. The oblique imaging in this patient with left-sided shoulder symptoms demonstrates a normal C2-C3 neural foramen. At C3-C4, there is a leftward protrusion causing mild left neural foraminal compromise. There is a similar finding at C4-C5. C5-C6 is unremarkable. C6-C7 leftward neural foramen is also mildly compromised secondary to a leftward protrusion. IMPRESSIONS: There is multilevel degenerative cervical spondylosis including a shallow concentric protrusion at C3-C4 and a concentric protrusion with associated leftward uncinate spur at C4-C5, which may be a symptomatic level in this patient. At C5-C6, there is leftward uncinate spurring as well with mild foraminal narrowing. At C6-C7, there is a concentric protrusion. If symptoms persist or worsen and if surgery is a consideration, then CT myelography may be an appropriate ancillary examination in this particular patient to identify the symptomatic level. /iadevora Sukhjinder Oviedo MD [facility] * MR EXTREMITY ELBOW W CONTRAST (10/02/2005 15:45 EST) Anatomical Region Laterality Modality Other 10/02/2005 15:4 5 EST Narrative 04/26/2009 2:24 EDT LEFT SHOUDLER WEAKNESS, LIFTING INJURY X 2, DIFFUSE LEFT ARM WEAKNESS LEFT SHOULDER MRI, WITH CONTRAST: ??10/02/05 HISTORY: ?? Left shoulder weakness and lifting injury x 2. ??Diffuse left arm weakness. ??Rule out SLAP tear. TECHNIQUE: ?? Routine multiplanar conventional MR images of the left shoulder were obtained with contrast from the earlier arthrogram. FINDINGS: Gadolinium is in the subacromial-subdeltoid bursa compatible with full thickness rotator cuff tear. The supraspinatus tendon has a full thickness tear at the anterior aspect traversing 16 mm on the coronal plane. ??The posterior aspect of the supraspinatus tendon also has a partial tear with penetration into the fibers. ??The infraspinatus is intact. ??High signal intensity, likely from gadolinium penetration of the superior labrum, reflects a superior labrum tear in the anterior-posterior dimension. ??The subscapularis tendon is thin, likely reflecting a partial tear. ??The middle glenohumeral ligament is thickened. ??No bony pathology or muscular atrophy is evident. ??The biceps tendon is flattened and mildly subluxed laterally. IMPRESSION: 1. Superior labral tear in anterior-posterior dimension. 2. Full thickness tear of the supraspinatus tendon at the anterior aspect traversing 16 mm on the coronal plane. 3. Partial tear of the supraspinatus tendon at the posterior aspect. 4. Partial tear of subscapularis tendon. 5. Flattened biceps tendon which is mildly subluxed laterally. D: ??10/05/05 T: ??10/06/05 / I have personally reviewed the images and the above interpretation and agree with the findings. Procedure Note Toño Ortiz MD / Grace Caicedo MD - 04/26/2009 LEFT SHOUDLER WEAKNESS, LIFTING INJURY X 2, DIFFUSE LEFT ARM WEAKNESS LEFT SHOULDER MRI, WITH CONTRAST: 10/02/05 HISTORY: Left shoulder weakness and lifting injury x 2. Diffuse left arm weakness. Rule out SLAP tear. TECHNIQUE: Routine multiplanar conventional MR images of the left shoulder were obtained with contrast from the earlier arthrogram. FINDINGS: Gadolinium is in the subacromial-subdeltoid bursa compatible with full thickness rotator cuff tear. The supraspinatus tendon has a full thickness tear at the anterior aspect traversing 16 mm on the coronal plane. The posterior aspect of the supraspinatus tendon also has a partial tear with penetration into the fibers. The infraspinatus is intact. High signal intensity, likely from gadolinium penetration of the superior labrum, reflects a superior labrum tear in the anterior-posterior dimension. The subscapularis tendon is thin, likely reflecting a partial tear. The middle glenohumeral ligament is thickened. No bony pathology or muscular atrophy is evident. The biceps tendon is flattened and mildly subluxed laterally. IMPRESSION: 1. Superior labral tear in anterior-posterior dimension. 2. Full thickness tear of the supraspinatus tendon at the anterior aspect traversing 16 mm on the coronal plane. 3. Partial tear of the supraspinatus tendon at the posterior aspect. 4. Partial tear of subscapularis tendon. 5. Flattened biceps tendon which is mildly subluxed laterally. / I have personally reviewed the images and the above interpretation and agree with the findings. Sukhjinder Oviedo MD [facility] * ORBITS FOR FOREIGN BODY (10/02/2005 14:24 EST) Anatomical Region Laterality Modality Other 10/02/2005 14:2 4 EST Narrative 04/26/2009 1:24 EDT PRE MRI ORBITS TO RULE OUT FOREIGN BODY ORBITS FOR FOREIGN BODY. FINDINGS: ??Two views of the orbits and an exposed plate show no evidence of metallic foreign body over the orbits. D: ??10/02/05 T: ??10/05/05 /[facility] Procedure Note Job Major MD - 04/26/2009 PRE MRI ORBITS TO RULE OUT FOREIGN BODY ORBITS FOR FOREIGN BODY. FINDINGS: Two views of the orbits and an exposed plate show no evidence of metallic foreign body over the orbits. /lds. Sukhjinder Oviedo MD [facility] ORDERABLES * FL GUIDE LOCATION, ASPIRATION, INJECTION, BIOPSY (10/02/2005 13:35 EST) Anatomical Region Laterality Modality Other 10/02/2005 13:3 5 EST Narrative 04/26/2009 2:24 EDT LEFT SHOUDLER WEAKNESS, LIFTING INJURY X 2, DIFFUSE LEFT ARM WEAKNESS ARTHROGRAM OF THE LEFT SHOULDER CLINICAL HISTORY: Left shoulder weakness, lifting injury x2, diffuse left arm weakness. ??Evaluate for SLAP tear. PROCEDURE: The procedure was explained to the patient and the potential benefits and risks were outlined. ??Local anesthesia was done with lidocaine 1%. Under fluoroscopic guidance, a 22-gauge needle was inserted into the left glenohumeral joint. ??Three cc of Hypaque 60 and 10 cc of a saline solution containing gadolinium and epinephrine were injected into the joint. The procedure was well tolerated with no immediate complications. The radiographs taken after the procedure demonstrate contrast in the subacromial-subdeltoid bursa indicating a full thickness rotator cuff tear. ??MRI to follow. /tns Procedure Note Grace Caicedo MD - 04/26/2009 LEFT SHOUDLER WEAKNESS, LIFTING INJURY X 2, DIFFUSE LEFT ARM WEAKNESS ARTHROGRAM OF THE LEFT SHOULDER CLINICAL HISTORY: Left shoulder weakness, lifting injury x2, diffuse left arm weakness. Evaluate for SLAP tear. PROCEDURE: The procedure was explained to the patient and the potential benefits and risks were outlined. Local anesthesia was done with lidocaine 1%. Under fluoroscopic guidance, a 22-gauge needle was inserted into the left glenohumeral joint. Three cc of Hypaque 60 and 10 cc of a saline solution containing gadolinium and epinephrine were injected into the joint. The procedure was well tolerated with no immediate complications. The radiographs taken after the procedure demonstrate contrast in the subacromial-subdeltoid bursa indicating a full thickness rotator cuff tear. MRI to follow. /tns Sukhjinder Oviedo MD IMG FLUOROSCOPY [facility] documented in this encounter Visit Diagnoses Not on filedocumented in this encounter
--- OUTSIDE RECORDS SUMMARY | 2024-05-18 15:15 | XMS_ITS | Encounter Summary ---
Author Organization [facility] Address [address] [place] [address] Care Team Providers Care Inventory Planner Name Role Phone Gianluca Nassar MD Primary Care Provider Unavail able Encounter Details Date Type Department Care Team (Late st Contact Info) Description 03/09/2023 Lab Requisition [facility] Medicine - [address] [id number] Outr Resulting Lab, Provider Social History Tobacco Use Types Packs/Day Years Used Date Smoking Tobacco: Never Assessed Sex and Gender Information Value Date Recorded Sex Assigned at Not on file Gender Identity Not on file Sexual Orientation Not on file documented as of this encounter Plan of Treatment Not on file documented as of this encounter Procedures Procedure Name Priority Date/Time Associated Diagnosis Comments PSA TOTAL, DIAGNOSTIC Routine 03/09/2023 11:05 EDT documented in this encounter Results * PSA TOTAL, DIAGNOSTIC (03/09/2023 11:05 EDT) PSA 2.0 <=4.5 ng/mL 03/09/2023 22:[address] [facility] Blood VENOUS BLOOD / Unknown 03/09/2023 11:05 EDT 03/09/2023 21:30 EDT Narrative [facility] - 03/09/2023 22:34 EDT NOTE: Serum PSA concentration should not be interpreted as absolute evidence for the presence or absence of malignant disease. Assayed on Siemens [employer] Aldisaur XPT using chemiluminescent technology.??Values obtained by using different assay methods cannot be used interchangeably. Provider Outr Resulting Lab CHEMISTRY & BLOOD GAS ORDERABLES [facility] [address] [place] [address] documented in this encounter Visit Diagnoses Not on filedocumented in this encounter Care Teams Inventory Planner Relationship Specialty Start Date End Date Gianluca Nassar MD PCP - General 12/23/10 documented as of this encounter
--- OUTSIDE RECORDS SUMMARY | 2024-05-18 15:15 | XMS_ITS | Encounter Summary ---
Author Organization [facility] [place] [address] Care Team Providers Care Pipeline Technician Name Role Phone Veronica Campbell APRN Primary Care Provider [phone] Reason for Visit * Consultation (Routine) - Authorized Specialty Diagnoses / Procedures Referred By Jason garcia Referred To Contact Hematology and Oncology Diagnoses Thrombocytopenia, unspecified CO-OCCURING ANEMIA, FATIGUE, EDEMA. Veronica Campbell APRN [address] [place] [address] [facility] [address] [place] [address] Referral ID Status Reason Start Date Expiration Date Visits Requested Visits Authorized [id number] Authorized Consult, Test & Treat PCP Updated and/or Approved 02/10/2024 02/09/2025 6 6 Encounter Details Date Type Department Care Team (Late st Contact Info) Description 04/19/2024 1:00 PM EDT Office Visit [place]ematology [place] [address] Sal Gray MD [facility] [place] [address] [place] [address] Thrombocytopenia; Lymphadenopathy; Splenomegaly Social History Tobacco Use Types Packs/Day Years Used Date Smoking Tobacco: Former Cigarettes 1.5 15 1 11/03/1969 - 09/02/1985 Smokeless Tobacco: Never Alcohol Use Standard Drinks/Week Comments Not Currently 0 (1 standard drink = 0.6 oz pur e alcohol) rare B1300 Health Literacy Answer Date Recor ded How often do you need to hav e someone help you when you read instructions, pamphlets, or other written material from your doctor or pharmacy? Rarely 04/19/2024 [facility] Utilities Answer Date Recorded In the past 12 months has th e electric, gas, oil, or water company threatened to shut off services in your home? No 04/19/2024 Overall Financial Resource Strain (CARDIA) Answe r Date Recorded How hard is it for you to pa y for the very basics like food, housing, medical care, and heating? Not hard at all 04/19/2024 Hunger Vital Sign Answer Date Recorded Within the past 12 months, y ou worried that your food would run out before you got the money to buy more. Never true 04/19/20 24 Within the past 12 months, t he food you bought just didn't last and you didn't have money to get more. Never true 04/19/2024 PRAPARE - Transportation Answer Date Re corded In the past 12 months, has l ack of transportation kept you from medical appointments or from getting medications? No 03/28 In the past 12 months, has l ack of transportation kept you from meetings, work, or from getting things needed for daily living? No 04/19/2024 Housing Stability Vital Sign Answer Jozef e Recorded In the last 12 months, was t here a time when you were not able to pay the mortgage or rent on time? No 04/19/2024 In the past 12 months, how m any times have you moved where you were living? 0 04/19/2024 At any time in the past 12 m [facility], were you homeless or living in a usp (including now)? No 04/19/2024 Sex and Gender Information Value Date Recorded Sex Assigned at Not on file Gender Identity Not on file Sexual Orientation Not on file documented as of this encounter Last Filed Vital Signs Vital Sign Reading Time Taken Comments Blood Pressure 152/83 04/19/2024 12:28 PM EDT Pulse 67 04/19/2024 12:28 PM EDT Temperature 37.1 ??C (98.8 ??F) 04/19/2024 12:28 PM E DT Respiratory Rate 16 04/19/2024 12:28 PM EDT Oxygen Saturation 98% 04/19/2024 12:28 PM EDT Inhaled Oxygen Concentration - - Weight 98.2 kg (216 lb 7.9 oz) 04/19/2024 12:28 PM EDT Height 174.5 cm (5' 8.7) 04/19/2024 12:28 PM ED T Body Mass Index 32.25 04/19/2024 12:28 PM EDT documented in this encounter Progress Notes * Sal Gray MD - 04/19/2024 1:00 PM EDT Images from the original note were not included. HEMATOLOGY CONSULTATION VISIT NOTE DATE OF VISIT : 04/19/24 REFERRING PROVIDER: Veronica Campbell Reason for Visit: Thrombocytopenia HPI Conrad Vera is a 69 y.o. male with PMH of Type 2 Diabetes, CAD, abdominal and mediastinal lymphadenopathy, referred for evaluation of thrombocytopenia. He presented to his primary care provider in April 2023 with increased edema and significant fatigue for the prior 2 months. He had a history of iron sinus congestion which she was treated with Augmentin. CBC at that time she had anemia and thrombocytopenia with normal iron and TIBC. Sed rate was mildly elevated. TSH was slightly above the normal range but free T4 was normal. CAITLYN was positive 1:60 with speckled pattern. Rheumatoid factor was negative. At this point he also had a normal reticulocyte count, ferritin, B12, and SPEP. A CT of the abdomen and pelvis done a few weeks later showed splenomegaly, mildly enlarged lymph nodes in the yanely hepatic region and no ascites. A CT of the chest showed right paratracheal, subcarinal, and AP window lymphadenopathy. Other than symptoms of edema and fatigue, Mr. Vera had no B symptoms at that time. He was referred to interventional pulmonology here and underwent bronchoscopy with extensive evaluation with biopsy showing no evidence of malignancy or sarcoidosis or infection. Repeat chest CT done January 26, 2024 showed reduced burden of multilobar airspace disease with stable and smaller mediastinal lymph nodes. Mr. Vera reports that other than his edema and fatigue, he feels relatively stable over the course of this time. He does endorse some progressive dyspnea on exertion symptoms in a pattern similar to what he had that resulted in evaluation by cardiology here in 2021. The reason for his referral to us today, however, is his thrombocytopenia, which has been present for quite some time. He and his reviewed results available to them from outside patient portal dating back well over 10 years with platelet count having generally been around 130,000/uL over the last several years. Medication list was reviewed and there are no new or culprit medications that time well to the onset of thrombocytopenia as far as we can appreciate. He does not consume alcohol at this point. He has a history of GERD and peptic ulcer disease. He remains on a PPI and still has occasional breakthrough GERD symptoms. On review of systems, he does report a somewhat intentional weight loss of 10 pounds over the last year. He denies any easy bleeding or bruising. His appetite is quite good. Beyond what is detailed above, his review of systems is otherwise unremarkable. Problem List Patient Active Problem List Diagnosis Code CAD (coronary artery disease) I25.10 Hypertension I10 Gout M10.9 Peptic disease K30 Diabetes mellitus E11.9 Kidney stones N20.0 Obesity E66.9 Memory loss R41.3 Coronary artery disease involving coronary bypass graft I25.810 Diverticular disease K57.90 SOB (shortness of breath) R06.02 S/P nasal septoplasty Z98.890 S/P FESS (functional endoscopic sinus surgery) Z98.890 Chronic pansinusitis J32.4 Surgical Hx Past Surgical History: Procedure Laterality Date PRG CATH [facility] LEFT HEART CATH & ARTS W/INJ & ANGIO IMG S&I N/A 02/24/2022 CORONARY ANGIOGRAPHY; W LHC,POSSIBLE PCI performed by Pablito Hunt MD at [facility] CATH LABS PRO [facility] EBUS GUIDED SAMPL 3/> NODE STATION/STRUX N/A 07/29/2023 BRONCH, W ENDOBRONCHIAL ULTRASOUND (EBUS) GUIDED SAMPLING, 3+ NODES (WRVU 4.96) performed by Toro Gonzales MD at [facility] ENDOSCOPY PRO COLONOSCOPY, DIAGNOSTIC N/A 09/02/2015 COLONOSCOPY, DIAGNOSTIC performed by Roula Saez MD at [facility] ENDOSCOPY PRO FRACTURE NASAL INFERIOR TURBINATE THERAPEUTIC Bilateral 11/26/2023 FRACTURE NASAL INFERIOR TURBINATE(S), THERAPEUTIC-BHANU (WRVU 1.31) performed by Bernard Linares MD at [facility] MAIN OR PRO NASAL SCOPY, EXPLOR FRONTAL SINUS Bilateral 11/26/2023 NASAL, SINUS ENDOSCOPY, FRONTAL EXPLORE, INC TISSUE REMOVAL-BHANU (WRVU 6.75) performed by Bernard Linares MD at [facility] MAIN OR PRO NASAL/SINUS ENDOSCOPY MAX ANTROST W/RMVL TISS MAX SINUS Bilateral 11/26/2023 NASAL, SINUS ENDOSCOPY, REMOVE TISSUE MAXILLARY SINUS, BHANU (WRVU 4.68) performed by Bernard Linares MD at [facility] MAIN OR PRO NASAL/SINUS NDSC TOT W/SPHENDT W/SPHEN TISS RMVL Bilateral 11/26/2023 NASAL,SINUS ENDOSCOPY,TOTAL ETHMOIDECTOMY INCLD SPHENOIDOTOMY W/ REMOVAL OF TISSUE (WRVU 8.48) performed by Bernard Linares MD at [facility] MAIN OR PRO SEPTOPLASTY/SUBMUCOUS RESECTION W/WO CARTILAGE GRAFT N/A 11/26/2023 SEPTOPLASTY OR SMR, W/ OR W/O CARTILAGE SCORING, CONTOURING OR REPLACEMENT W/ GRAFT (WRVU 7.01) performed by Bernard Linares MD at [facility] MAIN OR PRO STEREOTACTIC CPTR ASSTD PX CRANIAL, EXTRADURAL N/A 11/26/2023 STEREOTACTIC COMPUTER-ASSTD NAVIGATIONAL CRANIAL EXTRADURAL (WRVU 3.18) performed by Bernard Linares MD at [facility] MAIN OR XR JOINT ASPIRATION - LARGE JOINT RIGHT Right 12/24/2023 XR Fluoro Guided Joint Aspiration Large Right 12/24/2023 Silvestre Haider, [facility] RAD XRAY Medications I reviewed the medication list in the eDH with the pt Current Outpatient Medications Medication Instructions allopurinoL (ZYLOPRIM) 300 mg, Oral, EVERY MORNING aspirin EC 81 mg, Oral, DAILY atorvastatin (LIPITOR) 20 mg, Oral, NIGHTLY cetirizine (ZYRTEC) 10 mg, Oral, EVERY MORNING FreeStyle Elma 2 [place] Misc 1 each, Other, DAILY FreeStyle Elma 2 Sensor Kit 1 each, Other, DAILY gabapentin (NEURONTIN) 300 mg, Oral, NIGHTLY glipiZIDE XL (GLUCOTROL XL) 2.5 mg, Oral, EVERY MORNING hydroCHLOROthiazide 12.5 mg, Oral, EVERY MORNING icosapent ethyL (Vascepa) 1 gram Capsule 2 capsules, Oral, 2 TIMES DAILY levothyroxine (SYNTHROID) 88 mcg, Oral, DAILY losartan (COZAAR) 100 mg, Oral, EVERY MORNING Magnesium Chloride [address] tablet 2 tablets, Oral, EVERY MORNING melatonin 3 mg tablet 1 tablet, Oral, NIGHTLY metFORMIN (GLUCOPHAGE) 1,000 mg, Oral, 2 TIMES DAILY WITH MEALS nitroGLYcerin (NITROSTAT) 0.4 mg, Sublingual, EVERY 5 MIN PRN omeprazole (PRILOSEC) 20 mg, Oral, DAILY tadalafiL (CIALIS) 5 mg, Oral, PRN Allergies/ADR I reviewed the allergies listed in the eDH with the pt Allergies Allergen Reactions Celecoxib Other (See Comments) Red Blood Cells Antibodies-Difficult to Crossmatch DO NOT REMOVE Please contact the Blood Bank at [phone] for questions. Sulfamethoxazole Other (See Comments) Unsure that this is an allergy - unsure that ever had Bactrim Trimethoprim Other (See Comments) Unsure that this is an allergy - unsure that ever had Bactrim Colchicine Metronidazole CIS - Rash, CIS - Rash, CIS - Rash, CIS - Rash, CIS - Rash Opioids - Morphine Analogues CIS - causes GI shutdown, CIS - causes GI shutdown, CIS - causes GI shutdown, CIS - causes GI shutdown, CIS - causes GI shutdown Opioids-Meperidine And Related CIS - causes GI shutdown, CIS - causes GI shutdown, CIS - causes GI shutdown, CIS - causes GI shutdown, CIS - causes GI shutdown Opioids-Methadone And Related CIS - causes GI shutdown, CIS - causes GI shutdown, CIS - causes GI shutdown, CIS - causes GI shutdown, CIS - causes GI shutdown Social Hx Social History Socioeconomic History Marital status: Spouse name: None Number of children: None Years of education: None Highest education level: None Occupational History None Tobacco Use Smoking status: Former Current packs/day: 0.00 Average packs/day: 1.5 packs/day for 15.0 years (22.5 ttl pk-yrs) Types: Cigarettes Start date: 09/02/1970 Quit date: 09/02/1985 Years since quittin.6 Smokeless tobacco: Never Vaping Use Vaping status: Never Used Substance and Sexual Activity Alcohol use: Not Currently Comment: rare Drug use: No Sexual activity: None Other Topics Concern None Social History Narrative None Social Determinants of Health Financial Resource Strain: Low Risk (04/19/2024) Overall Financial Resource Strain (CARDIA) Difficulty of Paying Living Expenses: Not hard at all Food Insecurity: No Food Insecurity (04/19/2024) Hunger Vital Sign Worried About Running Out of Food in the Last Year: Never true Ran Out of Food in the Last Year: Never true Transportation Needs: No Transportation Needs (04/19/2024) PRAPARE - Transportation Lack of Transportation (Medical): No Lack of Transportation (Non-Medical): No Physical Activity: Not on file Intimate Partner Violence: Not on file Housing Stability: Low Risk (04/19/2024) Housing Stability Vital Sign Unable to Pay for Housing in the Last Year: No Number of Times Moved in the Last Year: 0 Homeless in the Last Year: No Lives in 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 ETOH: More alcohol in early 20s; nowadays, very little Smoking: Former smoker No other substance use Family Hx Reports all men in his family in 60-70 of age. Father passed at 76 Uncle passed at similar age Most passed of CV-related disease and complications. No FH of hematogical disorders Sister passed of cancer at age 69; she had multiple cancers - breast, skin, lady parts Brother of brain tumor - family questions if qtts-rqbl-szaeqi-induced Review of Systems A 12-point review of systems was performed and is unremarkable except as detailed in the interval history. Physical Exam Vitals Blood pressure 152/83, pulse 67, temperature 37.1 ??C (98.8 ??F), temperature source Temporal, resp. rate 16, height 174.5 cm (5' 8.7), weight 98.2 kg (216 lb 7.9 oz), SpO2 98%. Body mass index is 32.25 kg/m??. Body surface area is 2.18 meters squared. ECOG - ecog ps: 1 - Symptomatic but completely ambulatory Constitutional: Well-appearing gentleman in no acute distress Skin: No bruises or petechiae seen. No rashes or lesions. HEENT: Atraumatic. Anicteric sclera. Conjunctivae are without injection or pallor. Moist mucosa. Cardiac: Regular, without murmurs, gallops, or rubs. Respiratory: Lungs are clear to posterior auscultation bilaterally. Abdomen: Soft and non-tender. No obvious hepatosplenomegaly. No masses, guarding or rebound. Normalbowel sounds. Extremities: Warm and well-perfused and without lower extremity edema. Neurologic: Fully alert and oriented; no grossly apparent focal deficits. Labs Recent Results (from the past 24 hour(s)) Platelet count Collection Time: 04/19/24 12:04 PM Result Value Ref Range Platelets 95 (L) 145 - 357 x10(3)/mcL Plat Immature % 3.7 0.0 - 7.4 % Iron and TIBC Collection Time: 04/19/24 12:04 PM Result Value Ref Range Iron 82 45 - 160 mcg/dL TIBC 351 250 - 450 mcg/dL Iron Saturation 23 20 - 50 % Lactate Dehydrogenase Collection Time: 04/19/24 12:04 PM Result Value Ref Range LDH 143 110 - 220 unit/L Comprehensive metabolic panel (non-fasting) Collection Time: 04/19/24 12:04 PM Result Value Ref Range Glucose Lvl 176 65 - 199 mg/dL BUN 14 10 - 20 mg/dL Creatinine 1.23 0.80 - 1.50 mg/dL Sodium 141 135 - 145 mmol/L Potassium 4.8 3.5 - 5.0 mmol/L Chloride 106 98 - 107 mmol/L CO2 21 (L) 22 - 31 mmol/L Anion Gap 14 5 - 15 mmol/L Calcium 10.3 8.5 - 10.5 mg/dL Total Protein 7.5 6.1 - 8.0 g/dL Albumin 4.3 3.2 - 5.2 g/dL AST 19 0 - 39 unit/L ALT 20 0 - 55 unit/L Alk Phos 92 40 - 130 unit/L Total Bilirubin 0.5 0.2 - 1.3 mg/dL Estimated GFR 63 >=60 mL/min/1.73 m?? Hemogram Collection Time: 04/19/24 12:04 PM Result Value Ref Range WBC 7.5 4.0 - 9.5 x10(3)/mcL RBC 4.11 (L) 4.58 - 5.54 x10(6)/mcL Hemoglobin 13.0 (L) 13.7 - 16.5 g/dL Hematocrit 37.4 (L) 40.5 - 48.5 % MCV 91.0 82.9 - 93.1 fL MCH 31.6 27.5 - 32.1 pg MCHC 34.8 32.0 - 35.7 g/dL Platelets 95 (L) 145 - 357 x10(3)/mcL RDWSD 47.8 (H) 36.0 - 45.0 fL RDWCV 14.5 (H) 11.4 - 13.8 % MPV 11.3 7.6 - 12.9 fL nRBC % Auto 0.0 % nRBC Abs Auto 0.000 0.000 - 0.000 x10(3)/mcL Differential, Automated Collection Time: 04/19/24 12:04 PM Result Value Ref Range Neutrophils % 50.8 % Neutr Abs (ANC) 3.82 1.70 - 6.10 x10(3)/mcL Lymphocytes % 30.4 % Lymphocytes Abs 2.3 0.9 - 3.2 x10(3)/mcL Monocytes % 6.6 % Monocyte Abs 0.5 0.3 - 0.9 x10(3)/mcL Eosinophils % 11.0 % Eosinophils Abs 0.8 (H) 0.0 - 0.4 x10(3)/mcL Basophils % 0.8 % Basophils Abs 0.1 0.0 - 0.1 x10(3)/mcL Immature Gran % 0.40 % Samantha Gran Abs 0.03 0.00 - 0.04 x10(3)/mcL Pathology Bronchoscopy Lymph Node Biopsy 07/29/2023 DIAGNOSIS Lymph node, station 7, biopsy - - Reactive follicular hyperplasia (see Discussion) DISCUSSION Sections show follicles with well-formed germinal centers and intact mantle cuffs. Immunostains show an intact immunoarchitecture (see Additional Studies). Concurrent flow cytometry ([id number]) performed on the surgical specimen from this site did not detect a monotypic B-cell population or immunophenotypically aberrant T-cell population, supporting the diagnosis. ADDENDUM DISCUSSION This addendum is to integrate the findings of the B-cell clonality study. B-cell clonality studies by NGS for [facility] were negative, supporting the histologic impression of a reactive process. LYMPH NODE, STATION 7, FLOW CYTOMETRY 07/29/2023 - No monotypic B-cell population or immunophenotypically aberrant T-cell population detected. Radiology CT Chest wo Contrast 01/26/2024 FINDINGS: Pulmonary parenchyma: Improved aeration bilaterally with residual groundglass opacity at the azygoesophageal recess and at the superior segment left lower lobe and centrally in the upper lobes. No residual mass. No consolidation. Airways: No central endobronchial abnormality. Pleura: No effusion. Lymph nodes: Stable and smaller borderline and enlarged mediastinal lymph nodes. Heart and vasculature: Normal size heart without significant pericardial effusion Other mediastinal structures: No significant findings. Upper abdomen: Splenomegaly. Normal adrenal gland contours. Skeletal structures: No significant findings. IMPRESSION Reduced burden of multi lobar airspace disease with stable and smaller mediastinal lymph nodes. I reviewed all the pertinent available imaging. Assessment and Plan # Thrombocytopenia # History of Thoracic and Abdominal Lymphadenopathy # Splenomegaly and Hx Fatty Liver We discussed the differential for isolated thrombocytopenia often includes medications, autoimmune conditions, including but not limited to ITP, medications, infections including acute and chronic viral syndromes, nutritional deficiencies, toxins, thrombotic microangiopathies and and acquired bone marrow failure syndromes including but not limited to MDS. Inherited bone marrow failure syndromes are considered but generally more rare. Mr. Vera presents with chronic thrombocytopenia and no obvious etiology. I discussed with him that certainly based on his chronic counts, reported history of fatty liver, it is possible that this could be resulting in a mild degree of thrombocytopenia. Immune mediated thrombocytopenia (such as ITP) would be a diagnosis of exclusion. Thrombocytopenia serological workup is pending (part of the Hepatitis B panel is pending). Will makes Mr. Vera's case more complicated patients with history of unexplained lymphadenopathy.Taking mild thrombocytopenia, splenomegaly, other lymphadenopathy as described above together, I would wonder whether it is possible that he has low-grade B lymphoproliferative disorder, including the possibility of an indolent lymphoma. I discussed this with them candidly. Notably, if this was thecase, bronchoscopy did not reveal this diagnosis and moreover, radiographically, he seems to have actually improved with respect to the extent of lymphadenopathy so perhaps this is not as likely the case. It is possible that, given his thrombocytopenia is more marked today, that we may see evidenceof a lymphoproliferative disorder and a bone marrow. For this reason I said it would not be unreasonable to consider a bone marrow aspiration and biopsy if he wanted to seek a more definitive answer sooner. The alternative, but given his stability and other factors, would be to consider continuing to monitor. I would continue to follow-up on his CBC and differential every 3 to 6 months or so for now perhapsspacing it out to every 6 to 12 months if his counts remain stable. Will repeat to have progressivethrombocytopenia, progressing to dusty closer to 70,000/uL or so or if you were to develop any new clinical signs or features suggestive of would be lymphoproliferative disorder, I would urged him toreturn to care to consider further evaluation including repeat imaging, repeat lab studies, and a bone marrow aspiration and biopsy at that point. I offered to have him return to care to see me in follow-up in about a years time to review the results of 12 months worth of serial screening. He and his discussed that they will continue to befollowing with pulmonology and his primary care doctor and that if other abnormalities are identified at that point, that they would be willing to return to care here to explore further workup. I think this is reasonable. I have repeat testing for SPEP/ELIZABETH and FLC pending. Summary of recommendations - CBC every 3-6 months for now; space out to 6-12 if stable for a year - RTC for new cytopenias, progression of thrombocytopenia, aribtrarily to around 70,000/uL or so, but per mutual discretion - Lower than average threshold to consider BmBx for thrombocytopenia given above history RTC PRN I reviewed my impression and recommendations with Conrad Vera and answered all the questions.. Pt agreed with the plan. Thank you for inviting us to participate in the care of this patient; please don't hesitate to contact me if you'd like to discuss this patient's situation further. Sal Gray MD Section of Hematology Unit Control Clerkheavy equipment mechanic [facility] Greater than 60 minutes in aggregate were spent on date of visit, including non- face to face time. CC: CHRISTEL Finley Abby Patient consents to use of [facility] portal for communication of results. This note was completed using Virtual [employer] Dictation technology. Please reach out if there are significant errors in field laborer that require clarification on my part. An addendum will be made to this note as necessary once pending labs have resulted. documented in this encounter Plan of Treatment Upcoming Encounters Date Type Department Care Team (Late st Contact Info) Description 05/24/2024 2:00 PM EDT Office [place] [address] Bernard Linares MD [facility] [place] [address] 09/07/2024 3:00 PM EST Office Visit Dermatology at [facility] [address] [place] [address] Jeremiah Preston MD [facility] [place] [address] documented as of this encounter Results * (ABNORMAL) Platelet count (04/19/2024 12:04 PM EDT) Platelet 95(L) 145 - 357 x10(3)/mc L [facility] Immature Plt % 3.7 0.0 - 7.4 % [facility] Comment: Limitation of the Immature Platelet Fraction (IPF)-May be less reliable when the platelet count is less than 69k713/uL due to statistical imprecision. The IPF value provides an assessment of the Bone Marrow production status. ??It is useful in differentiating Thrombocytopenia caused by platelet destruction/consumption versus decreased production. It also helps to determine the imminent release of platelets and can be therefore a helpful parameter in Chemotherapy and Bone marrow transplant patients. ELEVATED IPF value: ?? When the bone marrow is in a state of over production such as when increased destruction and consumption are the underlying issue. ?? When the marrow is recovering post chemotherapy or bone marrow transplant. LOW to NORMAL IPF value: ?? When the bone marrow in not responding and is in a decreased state of production. References: [employer] The Clinical Value of the Immature Platelet Fraction (IPF) in Cell Recovery Document Number [id number] 02/2011 [employer] The Role of the Immature Platelet Fraction (IPF) in the Differential Diagnosis of Thrombocytopenia, Document [id number] V002/05/14 Blood 04/19/2024 12:0 4 PM EDT 04/19/2024 12:18 PM EDT Narrative Resulting Agency Comment Spec In Lab Sal Gray MD HEMATOLOGY ORDERABL ES [facility] [place] [address] * Ferritin (04/19/2024 12:04 PM EDT) Ferritin 119 31 - 409 ng/mL [facility] Comment: Please note that as of 09/01/2023, the reference intervals for Ferritin have been updated. Blood 04/19/2024 12:0 4 PM EDT 04/19/2024 12:18 PM EDT Narrative Resulting Agency Comment Spec In Lab Sal Gray MD CHEMISTRY ORDERABLE S Performing Organization Address [facility]/ZIP Co de Phone Number [facility] [place] [address] * Iron and TIBC (04/19/2024 12:04 PM EDT) Iron 82 45 - 160 mcg/dL [facility] TIBC 351 250 - 450 mcg/dL [facility] Iron Saturation 23 20 - 50 % [facility] Blood 04/19/2024 12:0 4 PM EDT 04/19/2024 12:18 PM EDT Narrative Resulting Agency Comment Spec In Lab Sal Gray MD CHEMISTRY ORDERABLE S Performing Organization Address City/[facility]/ZIP Co de Phone Number [facility] [place] [address] * (ABNORMAL) Free Light Chains, Serum (04/19/2024 12:04 PM EDT) [place] Free Light Chain 6.11(H) 0.72 - 2.75 mg/dL [facility] Lambda Free Light Chain 3.23(H) 0.57 - 2.15 mg/dL [facility] S[place]igent/Lambda FLC Ratio 1.8916 0.4000 - 2.5800 [facility] Blood 04/19/2024 12:0 4 PM EDT 04/19/2024 12:18 PM EDT Narrative Resulting Agency Comment Spec In Lab Sal Gray MD CHEMISTRY ORDERABLE S Performing Organization Address City/[facility]/ZIP Co de Phone Number [facility] [place] [address] * Protein Electrophoresis, serum (04/19/2024 12:04 PM EDT) Pathologist [facility] Total Prot Electrophoresis 7.3 6.1 - 8.0 g/dL [facility] Albumin Electrophoresis 4.67 3.20 - 5.20 g/dL [facility] Alpha 1 Globulin 0.18 0.10 - 0.30 g/dL [facility] Alpha 2 Globulin 0.79 0.40 - 0.90 g/dL [facility] Beta Globulin 0.85 0.50 - 1.00 g/dL [facility] Gamma Globulin 0.82 0.50 - 1.30 g/dL [facility] M1 Band None Detected None Detected [facility] Blood 04/19/2024 12:0 4 PM EDT 04/19/2024 12:18 PM EDT Narrative Resulting Agency Comment Spec In Lab Sal Gray MD CHEMISTRY ORDERABLE S Performing Organization Address City/[facility]/ZIP Co de Phone Number [facility] [place] [address] * HIV Screen, 4th Generation ([facility]/CGP/APD/NLH) (04/19/2024 12:04 PM EDT) HIV Ab/Ag Screen Negative Negative [facility] Comment: This 4th Generation HIV test screens for the presence of the HIV-1 p24 antigen as well as antibodies reactive against HIV-1 and HIV-2. A negative screen does not rule out an acute HIV infection. If acute HIV infection is suspected, testing should be repeated in 2 - 3 weeks or HIV nucleic acid testing performed. HIV Comment Low Risk of HIV Infection [facility] Blood 04/19/2024 12:0 4 PM EDT 04/19/2024 12:18 PM EDT Narrative Resulting Agency Comment Spec In Lab Sal Gray MD CHEMISTRY ORDERABLE S Performing Organization Address City/[facility]/ZIP Co de Phone Number [facility] [place] [address] * Hepatitis C Antibody (04/19/2024 12:04 PM EDT) Hepatitis C Antibody Negative Negative [facility] Blood 04/19/2024 12:0 4 PM EDT 04/19/2024 12:18 PM EDT Narrative Resulting Agency Comment Spec In Lab Sal Gray MD CHEMISTRY ORDERABLE S Performing Organization Address [facility]/ZIP Co de Phone Number [facility] [place] [address] * Hepatitis B Surface Antigen (04/19/2024 12:04 PM EDT) Hepatitis B Surface Antigen Negative Negative [facility] Blood 04/19/2024 12:0 4 PM EDT 04/19/2024 12:18 PM EDT Narrative Resulting Agency Comment Spec In Lab Sal Gray MD CHEMISTRY ORDERABLE S Performing Organization Address [facility] Co de Phone Number [facility] [place] [address] * Hepatitis B Surface Antibody (04/19/2024 12:04 PM EDT) Hepatitis B Surface Antibody, Quantitative 9.5 IU/L [facility] Comment: HepB Surface Ab Quant: Unvaccinated: < 8.5 IU/L Vaccinated: >= 11.5 IU/L Hepatitis B Surface Antibody Indeterminate [facility] Comment: Unable to determine if the antibody is present at concentrations consistent with immunity to HBV infection. Expected Results: Vaccinated: Positive Unvaccinated: Negative Blood 04/19/2024 12:0 4 PM EDT 04/19/2024 12:18 PM EDT Narrative Resulting Agency Comment Spec In Lab Sal Gray MD CHEMISTRY ORDERABLE S Performing Organization Address City/[facility]/ZIP Co de Phone Number [facility] [place] [address] * Hepatitis B Core Antibody, Total (04/19/2024 12:04 PM EDT) Hepatitis B Core Antibody Negative Negative [facility] Blood 04/19/2024 12:0 4 PM EDT 04/19/2024 12:18 PM EDT Narrative Resulting Agency Comment Spec In Lab Sal Gray MD CHEMISTRY ORDERABLE S Performing Organization Address City/[facility]/ZIP Co de Phone Number [facility] [place] [address] * Lactate Dehydrogenase (04/19/2024 12:04 PM EDT) Lactate Dehydrogenase 143 110 - 220 unit/L [facility] Blood 04/19/2024 12:0 4 PM EDT 04/19/2024 12:18 PM EDT Narrative Resulting Agency Comment Spec In Lab Sal Gray MD CHEMISTRY ORDERABLE S Performing Organization Address City/[facility]/ZIP Co de Phone Number [facility] [place] [address] * (ABNORMAL) Comprehensive metabolic panel (non-fasting) (04/19/2024 12:04 PM EDT) Glucose 176 65 - 199 mg/dL [facility] Comment:Diabetes: >=200 mg/d L plus symptoms Blood Urea Nitrogen 14 10 - 20 mg/dL [facility] Creatinine 1.23 0.80 - 1.50 mg/dL [facility] Sodium 141 135 - 145 mmol/L [facility] Potassium 4.8 3.5 - 5.0 mmol/L [facility] Comment: Please note: ??Patients with WBC >100,000 may have falsely elevated Potassium levels. ??For accurate Potassium quantification in these patients send serum separator tube (gold top) for subsequent determinations. ??Contact the Clinical Chemistry Laboratory if there are any questions. Chloride 106 98 - 107 mmol/L [facility] Carbon Dioxide 21(L) 22 - 31 mmol/L [facility] Anion Gap 14 5 - 15 mmol/L [facility] Calcium 10.3 8.5 - 10.5 mg/dL [facility] Protein, Total 7.5 6.1 - 8.0 g/dL [facility] Albumin 4.3 3.2 - 5.2 g/dL [facility] Aspartate Aminotransferase 19 0 - 39 unit/L [facility] Alanine Aminotransferase 20 0 - 55 unit/L [facility] Alkaline Phosphatase 92 40 - 130 unit/L [facility] Bilirubin, Total 0.5 0.2 - 1.3 mg/dL [facility] Est Glomerular Filtration Rate 63 >=60 mL/min/1. 73 m?? [facility] Comment: This patient's estimated GFR was calculated using the 2020 CKD-EPI equation. The estimated GFR can vary from the measured GFR by up to 30% in the absence of rapidly changing kidney function. Assessment of the estimated GFR is not appropriate when creatinine concentrations are rapidly changing. For clinical situations in which a more precise estimate of GFR is necessary, consider alternative methods of GFR estimation such as a 24-hour urine creatinine clearance. Assignment of CKD stage 1-5 for patients with an eGFR near the transition point between stages may be based on clinical assessment of muscle mass and symptoms in addition to eGFR. Blood 04/19/2024 12:0 4 PM EDT 04/19/2024 12:18 PM EDT Narrative Resulting Agency Comment Spec In Lab Sal Gray MD CHEMISTRY ORDERABLE S Performing Organization Address City/State/[facility] Co de Phone Number [facility] [place] [address] documented in this encounter Visit Diagnoses Diagnosis Thrombocytopenia Thrombocytopenia, unspecified Lymphadenopathy Enlargement of lymph nodes Splenomegaly documented in this encounter Care Teams Pipeline Technician Relationship Specialty Start Date End Date Veronica Campbell APRN [address] [place] [address] PCP - General Family Medicine 01/18/22 documented as of this encounter
--- OUTSIDE RECORDS SUMMARY | 2024-05-18 15:15 | XMS_ITS | Encounter Summary ---
Author Organization [facility] Address [address] [place] [address] Care Team Providers Care Construction Technician Name Role Phone Unavailable Primary Care Provider Unavailabl e Encounter Details Date Type Department Care Team (Late st Contact Info) Description 04/29/2006 Results Only [facility] - [facility] [address] [place] [address] Jin Tomas DO [facility] [address] Social History Tobacco Use Types Packs/Day Years Used Date Smoking Tobacco: Never Assessed Sex and Gender Information Value Date Recorded Sex Assigned at Not on file Gender Identity Not on file Sexual Orientation Not on file documented as of this encounter Plan of Treatment Not on file documented as of this encounter Procedures Procedure Name Priority Date/Time Associated Diagnosis Comments SURGICAL PATHOLOGY Routine 04/29/2006 0:00 EDT documented in this encounter Results * SURGICAL PATHOLOGY (04/29/2006 0:00 EDT) Pathology Report: SURGICAL PATHOLOGY REPORT Reports generated via electronic interface contain original data; however they are lacking the format of the original report. Caution should be taken when reading/interpreti ng unformatted reports. Name: ? CONRAD VERA ? Accession #: ? [id number] ? : ? 1955 (Age: 51) ??M ? Collect Date: ? 04/29/2006 ? Location: ? [facility] ? Receive Date: ? 04/30/2006 ? Provider: JIN TOMAS DO Copy to: JS SMITH MD ? Final Pathologic Diagnosis: ? 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 ??See comment. ?? Comment: ? Dr. Priyank Rosales has reviewed this case in consultation. No atypia is seen. (Dr. Sandoval)/[facility] Document reviewed and electronically signed by: JAMI SANDOVAL MD Report ??Date: 05/05/2006 15:00 By the signature above, the attending physician certifies that he/she has personally conducted a gross and/or microscopic examination of the described specimens and rendered or confirmed the above diagnosis. Specimen(s) Received: ? Mass R forearm Clinical History: ? Mass R forearm Gross Description: ? Received in formalin labeled Vera and mass R forearm is an ovoid 5.1 x 2.4 x 4.2 cm portion of adipose tissue. ??The surface is inked blue. ??Serial sectioning reveals homogeneous yellow adipose tissue. ??Claims Customer Service Representative sections are submitted as (A1) to (A3). (Dr. Ariane Garza-)/[facility] End of Report [facility] 04/29/2006 04/30/2006 15: 36 EDT Jin Tomas DO PATHOLOGY ORDERAB LES [facility] [address] [place] [address] documented in this encounter Visit Diagnoses Not on filedocumented in this encounter
--- OUTSIDE RECORDS SUMMARY | 2024-05-18 15:15 | XMS_ITS | Encounter Summary ---
Author Organization [facility]ly [facility] [place] [address] Care Team Providers Care Lens Molding Equipment Operator Name Role Phone Veronica Campbell CHRISTEL Primary Care Provider [phone] Encounter Details Date Type Department Care Team (Late st Contact Info) Description 12/29/2023 Orders [place] [address] Heidy Ibarra PA [facility] [place] [address] Social History Tobacco Use Types Packs/Day Years [...] as of this encounter Plan of Treatment Upcoming Encounters Date Type Department Care Team (Late st Contact Info) Description 05/24/2024 2:00 PM EDT Office [place] [phone] Bernard Linares MD [facility] [place] [address] 09/07/2024 3:00 PM EST Office Visit Dermatology at [facility] [address] [place] [address] Jeremiah Preston MD [facility] [address] [place] [address] documented as of this encounter Visit Diagnoses Not on filedocumented in this encounter Care Teams Lens Molding Equipment Operator Relationship Specialty Start Date End Date Veronica Campbell APRN [address] [place] [address] PCP - General Family Medicine 01/18/22 documented as of this encounter
--- OUTSIDE RECORDS SUMMARY | 2024-05-18 15:15 | XMS_ITS | Encounter Summary ---
Author Organization [facility] Address [address] [place] [address] Care Team Providers Care Computational Theory Scientist Name Role Phone Gianluca Nassar MD Primary Care Provider Unavail able Encounter Details Date Type Department Care Team (Late st Contact Info) Description 07/09/2020 Lab Requisition [facility] Pathology & Laboratory Medicine - [facility] [address], [place] [address] Outr Resulting Lab, Provider Social History Tobacco [...] Associated Diagnosis Comments PSA TOTAL, DIAGNOSTIC Routine 07/08/2020 9:05 EDT documented in this encounter Results * PSA TOTAL, DIAGNOSTIC (07/08/2020 9:05 EDT) PSA 1.8 0.0 - 4.5 ng/mL 07/09/2020 18:18 EDT [facility] Blood VENOUS BLOOD / Unknown 07/08/2020 9:05 EDT 07/09/2020 16:46 EDT Narrative [facility] - 07/09/2020 18:18 EDT NOTE: Serum PSA concentration should not be interpreted as absolute evidence for the presence or absence of malignant disease. Assayed on Siemens ADVIA Endoclearaur XPT using chemiluminescent technology.??Values obtained by using different assay methods cannot be used interchangeably. Provider Outr Resulting Lab CHEMISTRY & BLOOD GAS ORDERABLES [facility] [address] [place] [address] documented in this encounter Visit Diagnoses Not on filedocumented in this encounter Care Teams Computational Theory Scientist Relationship Specialty Start Date End Date Gianluca Nassar MD PCP - General 12/23/10 documented as of this encounter
--- OUTSIDE RECORDS SUMMARY | 2024-05-18 15:15 | XMS_ITS | Encounter Summary ---
Author Organization [facility] [place] [address] Care Team Providers Care Master Sonar Technician Name Role Phone Veronica Campbell CHRISTEL Primary Care Provider [phone] Encounter Details Date Type Department Care Team (Late st Contact Info) Description 01/26/2024 3:40 PM EDT [place] [address] Paulie Velazquez MD [facility] [place] [address] Mediastinal adenopathy; Lung infiltrate on CT; Splenomegaly; Anemia, unspecified type; Thrombocytopenia Social History Tobacco Use Types Packs/Day Years Used Date Smoking Tobacco: Former Cigarettes 1.5 15 1 11/03/1969 - 09/02/1985 Smokeless Tobacco: Never Tobacco Cessation:Counseling Given: Not Answered Alcohol Use Standard Drinks/Week Comments Not Currently 0 (1 standard drink = 0.6 oz pur e alcohol) rare Sex and Gender Information Value Date Recorded Sex Assigned at Not on file Gender Identity Not on file Sexual Orientation Not on file documented as of this encounter Last Filed Vital Signs Vital Sign Reading Time Taken Comments Blood Pressure 151/78 01/26/2024 3:27 PM EDT Pulse 71 01/26/2024 3:27 PM EDT Temperature 36.6 ??C (97.9 ??F) 01/26/2024 3:27 PM ED T Respiratory Rate 14 01/26/2024 3:27 PM EDT Oxygen Saturation 98% 01/26/2024 3:27 PM EDT Inhaled Oxygen Concentration - - Weight 98.5 kg (217 lb 3.2 oz) 01/26/2024 3:27 P M EDT Height - - Body Mass Index 31.16 12/01/2023 1:13 PM EST documented in this encounter Progress Notes * Paulie Velazquez MD - 01/26/2024 3:40 PM EDT Images from the original note were not included. INTERVENTIONAL PULMONOLOGY OUTPATIENT FOLLOW-UP NOTE SECTION OF PULMONARY & CRITICAL CARE MEDICINE PATIENT NAME: Conrad Vera : 1955 MEDICAL RECORD: [id number] DATE OF SERVICE: 01/26/2024 PRIMARY CARE PHYSICIAN: Veronica Campbell APRN Mr. Conrad Vera is a 68 y.o. gentleman who I last saw on 07/27/23 and returns today for follow-up of mediastinal and yanely hepatic adenopathy and splenomegaly . Since our last visit Mr. Vera underwent bronchoscopy on July and has been doing well, without any pulmonary complaints. Since our last visit, [place] and had some difficulty when over 6,000 feet with shortness of breath. His SpO2 was in the high 80s / low 90s. At sea level, he is doing well, without SOB at rest or exertional dyspnea. He denies any fever, chills, sweats or weight loss. Review of Systems: A 12 point ROS was negative aside from as listed above. Since our initial visit on 07/27/23 there has been no change in his past, family or social history aside from having sinus surgery in November 2023.. Medications: Prior to Admission medications Medication Sig Start Date End Date Taking? Authorizing Provider amoxicillin-clavulanate (Augmentin) 875-125 mg tablet Take 1 tablet by mouth 2 times daily. 11/26/23 Grisel Calhoun PA omeprazole (PriLOSEC) [address] capsule Take 20 mg by mouth daily. PROVIDER, HISTORICAL Magnesium Chloride [address] tablet Take 1 tablet by mouth every morning. PROVIDER, HISTORICAL tadalafiL (Cialis) 5 mg tablet Take 5 mg by mouth as needed for Erectile Dysfunction. PROVIDER, HISTORICAL hydroCHLOROthiazide (Hydrodiuril) 12.5 mg tablet Take 12.5 mg by mouth every morning. PROVIDER, HISTORICAL gabapentin (Neurontin) 300 mg capsule Take 300 mg by mouth nightly. 12/01/22 PROVIDER, HISTORICAL melatonin 3 mg tablet Take 1 tablet by mouth nightly. 11/13/22 PROVIDER, HISTORICAL cetirizine (ZyrTEC) 10 mg tablet Take 10 mg by mouth every morning. PROVIDER, HISTORICAL glipiZIDE XL (Glucotrol XL) 2.5 mg ER 24 hr tablet Take 2.5 mg by mouth every morning. 12/01/22 PROVIDER, HISTORICAL levothyroxine (Synthroid) 88 mcg tablet Take 88 mcg by mouth daily. 07/16/23 PROVIDER, HISTORICAL FreeStyle Elma 2 Magnolia Misc 1 each by Other route daily. Indications: diabetes 08/03/22 Benji Stringer, DO FreeStyle Elma 2 Sensor Kit 1 each by Other route daily. Indications: diabetes 08/03/22 Benji Stringer, DO icosapent ethyL (Vascepa) 1 gram Capsule Take 2 capsules by mouth 2 times daily. 04/24/22 Jarrod Hernandez PA atorvastatin (Lipitor) 20 mg Tablet Take 1 tablet by mouth nightly. 02/25/22 Chetan Hutchison MD nitroGLYcerin (Nitrostat) 0.4 mg Tablet, Sublingual Place 0.4 mg under the tongue every 5 minutes as needed for Chest pain. PROVIDER, HISTORICAL aspirin EC 81 mg Tablet, Delayed Release (E.C.) Take 81 mg by mouth daily. PROVIDER, HISTORICAL allopurinol (ZYLOPRIM) 300 mg tablet Take 300 mg by mouth every morning. 12/12/10 losartan (Cozaar) 100 mg tablet Take 100 mg by mouth every morning. 12/12/10 metFORMIN (Glucophage) 1,000 mg tablet Take 1,000 mg by mouth 2 times daily (with meals). 12/12/10 Allergies: Allergies Allergen Reactions Celecoxib Other (See Comments) Red Blood Cells Antibodies-Difficult to Crossmatch DO NOT REMOVE Please contact the Blood Bank at [phone] for questions. Sulfamethoxazole Other (See Comments) Unsure [...] GI shutdown, CIS - causes GI shutdown Objective: Patient Vitals for the past 24 hrs: Temp Pulse Resp BP SpO2 01/26/24 1527 36.6 ??C (97.9 ??F) 71 14 151/78 98 % General: This is a 68 y.o. male HEENT: Moist mucous membranes, sclera are white Neck: Supple, trachea is midline Lymphatics: No obvious lymphadenopathy Cardiovascular: Nl s1/s2, rrr Respiratory: Clear to auscultation bilaterally GI: soft, nt, nd, + palpable spleen tip Extremities: no LE edema noted, no clubbing Imaging: (Images personally reviewed) 01/26/[address]: Again seen were multiple mediastinal nodes at stations 2R, 4R, 6, 7, though all show a reduction in size compared to prior imaging. There were no plural or pericardial effusions. There are still mild residual ground glass opacities, improved compared to 05/2023. There is persistent splenomegly as well as adenopathy in the yanely hepatic region. 06/08/[address]: mediastinal adenopathy including stations 2R, 4R, 4L, 6, 7. There are no pleural or pericardial effusions. There is some patchy ground-glass infiltrate at the lower lobes, as well as a 2.6mm nodule in the peripheral RUL and a calcified granuloma in the RLL. There is splenomegaly as well as adenopathy in the yanely hepatic region. 07/29/23 bronchoscopy path/cyto : reactive lymphoid hyperplasia without evidence of malignancy, negative flow cytometry Recent Labs 11/26/23 1030 WBC 5.2 HGB 11.7* HCT 33.9* PLATELET 118* Assessment and Plan: Mr. Conrad Vera is a 68 y.o. gentleman who presents to the Interventional Pulmonology clinic for follow-up of mediastinal and abdominal adenopathy initially found on evaluation for lower extremity edema, fatigue, vision changes and hypoxia during a trip to the [facility]. He underwent bronchoscopy in July 2023 which did not show any evidence of malignancy, lymphoma or sarcoidosis. I am encouraged by the reduction in size of the mediastinal adenopathy and ground-glass airspace disease and as such, do not feel further chest imaging is warranted unless he develops new symptoms. His PCP will follow his anemia, thrombocytopenia and splenomegaly and we also discussed the option of obtaining a hematology consult. All of his and his 's questions were answered and they agree with the plan. Paulie Velazquez MD, 01/26/2024, 3:45 PM Interventional Pulmonology Section of Pulmonary & Critical Care Pager: [phone] I personally performed a total of 40min of aggregate time involved in patient evaluation, reviewingmedical records, interpreting diagnostic studies (imaging and/or labs), formulating my plan, and documentation of this consultation note. I provided medical care services that are part of the ongoing care related to the patient's serious/complex condition. documented in this encounter Plan of Treatment Upcoming Encounters Date Type Department Care Team (Late st Contact Info) Description 05/24/2024 2:00 PM EDT Office [place] [address] Bernard Linares MD [facility] [place] [address] 09/07/2024 3:00 PM EST Office Visit Dermatology at [facility] [address] [place] [address] Jeremiah Preston MD [facility] [address] [place] [address] documented as of this encounter Visit Diagnoses Diagnosis Mediastinal adenopathy Enlargement of lymph nodes Lung infiltrate on CT Splenomegaly Anemia, unspecified type Thrombocytopenia Thrombocytopenia, unspecified documented in this encounter Care Teams Master Sonar Technician Relationship Specialty Start Date End Date Veronica Campbell APRN [address] [place] [address] PCP - General Family Medicine 01/18/22 documented as of this encounter
--- OUTSIDE RECORDS SUMMARY | 2024-05-18 15:15 | XMS_ITS | Clinical Summary ---
Author Organization [facility] [place] [address] Care Team Providers Care Field Laboratory Operator Name Role Phone Adrian Veronica CHRISTEL Primary Care Provider [phone] Allergies Active Allergy Reactions Criticality Noted Date Comments Celecoxib Other (See Comments) High 11/23/2023 Colchicine Metronidazole CIS - Rash, CIS - [...] GI shutdown, CIS - causes GI shutdown Red Blood Cells High 02/24/2022 Antibodies-Diffic ult to Crossmatch DO NOT REMOVE Please contact the Blood Bank at [phone] for questions. Sulfamethoxazole Other (See Comments) High 11/14/2022 Unsure that this is an allergy - unsure that ever had Bactrim Trimethoprim Other (See Comments) High 11/14/2022 Unsure that this is an allergy - unsure that ever had Bactrim Medications Medication Sig Dispensed Refills Start Date End Date Status allopurinol (ZYLOPRIM) 300 mg tablet Take 300 mg by mouth every morning. 12/12/2010 Active losartan (Cozaar) 100 mg tablet Take 100 mg by mouth every morning. 12/12/2010 Active metFORMIN (Glucophage) 1,000 mg tablet Take 1,000 mg by mouth 2 times daily (with meals). 12/12/2010 Active nitroGLYcerin (Nitrostat) 0.4 mg Tablet, Sublingual Place 0.4 mg under the tongue every 5 minutes as needed for Chest pain. Active aspirin EC 81 mg Tablet, Delayed Release (E.C.) Take 81 mg by mouth daily. Active atorvastatin (Lipitor) 20 mg Tablet Take 1 tablet by mouth nightly. 90 tablet 3 02/25/2022 Active icosapent ethyL (Vascepa) 1 gram CapsuleIndications: Coronary artery disease, unspecified vessel or lesion type, unspecified whether angina present, unspecified whether [place] or transplanted heart Take 2 capsules by mouth 2 times daily. 360 capsule 3 04/24/2022 Active Additional Information Patient taking differently: 1 capsuleOral 2 TIMES DAILY, Reported on 01/26/2024 FreeStyle Elma 2 [place]onia MiscIndications:genny betes mellitus 1 each by Other route daily. Indications: diabetes 1 each 08/03/2022 Active FreeStyle Elma 2 Sensor KitIndications:diab etes mellitus 1 each by Other route daily. Indications: diabetes 6 kit 3 08/03/2022 Active glipiZIDE XL (Glucotrol XL) 2.5 mg ER 24 hr tablet Take 2.5 mg by mouth every morning. 12/01/2022 Active levothyroxine (Synthroid) 88 mcg tablet Take 88 mcg by mouth daily. 07/16/2023 Active gabapentin (Neurontin) 300 mg capsule Take 300 mg by mouth nightly. 12/01/2022 Active melatonin 3 mg tablet Take 1 tablet by mouth nightly. 11/13/2022 Active cetirizine (ZyrTEC) 10 mg tablet Take 10 mg by mouth every morning. Active tadalafiL (Cialis) 5 mg tablet Take 5 mg by mouth as needed for Erectile Dysfunction. Active hydroCHLOROthiazide (Hydrodiuril) 12.5 mg tablet Take 12.5 mg by mouth every morning. Active omeprazole (PriLOSEC) [address] capsule Take 20 mg by mouth daily. Active Magnesium Chloride [address] tablet Take 2 tablets by mouth every morning. Active Active Problems Problem Noted Date Diagnosed Date S/P nasal septoplasty 12/02/2023 S/P FESS (functional endoscopic sinus surgery) 0 12/02/2023 Chronic pansinusitis 12/02/2023 SOB (shortness of breath) 01/23/2022 CAD (coronary artery disease) 08/15/2015 Overview (03/17/2022): Images from the original note were not included. History of remote CABG TTE 09/07/2019 ([facility]): TTE 01/20/2022 ([facility]): Cardiac Catheterization / Graft study/ PCI 02/24/2022: Conclusions: * Significant stenosis of the left main * Three vessel coronary artery disease (LAD, LCX and RCA) * Patent left internal mammary artery graft to the LAD * Obstructive disease of the saphenous vein graft to the RCA * Obstructive disease of the saphenous vein graft to the OM1 * Successful stent insertion of the distal LM lesion * Successful stent insertion of the mid RCA lesion * Successful stent insertion of the ostial RPDA lesion * Successful stent insertion of the distal RCA lesion * Successful stent insertion of the mid 1 RPDA lesion Hypertension 08/15/2015 Gout 08/15/2015 Peptic disease 08/15/2015 Diabetes mellitus 08/15/2015 Kidney stones 08/15/2015 Obesity 08/15/2015 Memory loss 08/15/2015 Coronary artery disease involving coronary bypas s graft 08/15/2015 Diverticular disease 08/15/2015 Encounters Date Type Department Care Team Description 04/19/2024 1:00 PM EDT Office Visit [place] [address] Sal Gray MD Thrombocytopenia; Lymphadenopathy; Splenomegaly 04/19/2024 11:55 AM EDT - 04/19/2024 11:59 PM EDT Hospital Encounter [place] [address] Thrombocytopenia Discharge Disposition: Home 04/19/2024 Travel 02/23/2024 Transcribe Orders eDH Incoming Referrals [phone] Veronica Campbell APRN Thrombocytopenia, unspecified from Last 3 Months Immunizations Name Administration Dates Next Due Influenza (Novel [id number]) Injectable 07/28/2009 Influenza Vaccine, Whole 07/28/2009,07/21/2006,1 Moderna Covid-19 Monovalent 12Yr+ (Time Recorder 100mcg) 01/01/2022,07/24/2021,12/30/2020, 021 Social History Tobacco Use Types Packs/Day Years [...] from your doctor or pharmacy? Rarely 04/19/2024 [facility] Utilities Answer Date Recorded In the [...] any time in the past [address] [facility] [place], were you homeless or living in a snf (including now)? No 04/19/2024 Sex and Gender Information Value Date Recorded Sex Assigned at Not on file Gender Identity Not on file Sexual Orientation Not on file Last Filed Vital Signs Vital Sign Reading [...] Mass Index 32.25 04/19/2024 12:28 PM EDT Plan of Treatment Upcoming Encounters Date Type Department Care Team (Late st Contact Info) Description 05/24/2024 2:00 PM EDT Office [place] [address] Bernard Linares MD [facility] [place] [address] 09/07/2024 3:00 PM EST Office Visit Dermatology at [facility] [address] [place] [address] Jeremiah Preston MD [facility] [place] [address] Health Maintenance Due Date Last Done Comments CT Colonography 1955 FIT DNA 1955 FIT 1955 Sigmoidoscopy 1955 Pneumoccocal Vaccine: 65+ (1 of 2 - PCV) 1959 DM Hemoglobin A1c 1963 DM Opthalmology Exam 1963 DM Urine Microalbumin yearly 1963 Tdap adult 1972 Tetanus vaccine 1972 Zoster vaccine (1 of 2) 2003 Advance Directive 2008 AAA Screen 2018 Covid-19 Vaccine (2022-2 4 season) 2023 07/18/2023, 01/01/2022, 07/24/2021, Additional history exists Influenza (Flu) vaccine (1 o f 1 - Influenza standard series) 05/28/2024 07/28/2009, 07/28/2009, 07/21/2006, Additional history exists DM Creatinine yearly 04/19/2025 04/19/2024, 04/09/2022, 02/25/2022, Additional history exists Colonoscopy 09/02/2025 09/02/2015, 09/02/2015 Colorectal Cancer Screening 09/02/2025 Sigmoidoscopy (10 year) with FIT yearly 09/02/2025 09/02/2015, 09/02/2015 Hepatitis C Screening Completed 04/19/2024 Procedures Procedure Name Priority Date/Time Associated Diagnosis Comments DIFFERENTIAL, AUTOMATED STAT 04/19/20 12:04 PM EDT Thrombocytopenia HEMOGRAM STAT 04/19/2024 12:04 PM EDT Thrombocytopenia CBC (WITH DIFF) STAT 04/19/2024 12:04 PM EDT Thrombocytopenia COMPREHENSIVE METABOLIC PANEL STAT 04/19/2024 12:04 PM EDT Thrombocytopenia LACTATE DEHYDROGENASE STAT 04/19/2024 12:04 PM EDT Thrombocytopenia HEPATITIS B CORE ANTIBODY, TOTAL Routine 04/19/2024 12:04 PM EDT Thrombocytopenia HEPATITIS B SURFACE ANTIBODY Routine 04/19/2024 12:04 PM EDT Thrombocytopenia HEPATITIS B SURFACE ANTIGEN Routine 04/19/2024 12:04 PM EDT Thrombocytopenia HEPATITIS C ANTIBODY Routine 04/19/2024 12:04 PM EDT Thrombocytopenia HIV SCREEN, 4TH GENERATION ([facility]/CGP/APD/NLH) Routine 04/19/2024 12:04 PM EDT Thrombocytopenia HC SERUM PROT. ELECTROPHORESIS STAT 04/19/2024 12:04 PM EDT Thrombocytopenia IMMUNOGLOBULIN FREE LIGHT CHAINS, SERUM STAT 04/19/2024 12:04 PM EDT Thrombocytopenia IRON AND TIBC STAT 04/19/2024 12:04 PM EDT Thrombocytopenia FERRITIN STAT 04/19/2024 12:04 PM EDT Thrombocytopenia HC VENIPUNCTURE Routine 04/19/2024 12:04 PM EDT Thrombocytopenia COLONOSCOPY Routine 09/02/2015 8:28 AM EST from Last 3 Months or Most Recently Relevant to Health Maintenance Results * (ABNORMAL) Free Light Chains, Serum (04/19/2024 12:04 PM EDT) Pathologist [facility] [place] Free Light Chain 6.11(H) 0.72 - 2.75 mg/dL [facility] Lambda Free Light Chain 3.23(H) 0.57 - 2.15 mg/dL [facility] [place]/Lambda FLC Ratio 1.8916 0.4000 - 2.5800 [facility] Blood 04/19/2024 12:0 4 PM EDT 04/19/2024 12:18 PM EDT Narrative Resulting Agency Comment Spec In Lab Sal Gray MD CHEMISTRY ORDERABLE S [facility] [place] [address] * (ABNORMAL) Hemogram (04/19/2024 12:04 PM EDT) White Blood Cell 7.5 4.0 - 9.5 x10(3)/mc L [facility] Red Blood Cell 4.11(L) 4.58 - 5.54 x10(6)/mc L [facility] Hemoglobin 13.0(L) 13.7 - 16.5 g/dL [facility] Hematocrit 37.4(L) 40.5 - 48.5 % [facility] Mean Cell Volume 91.0 82.9 - 93.1 fL [facility] Mean Cell Hemoglobin 31.6 27.5 - 32.1 pg [facility] Mean Cell Hemoglobin Concentration 34.8 32.0 - 35.7 g/dL [facility] Platelet 95(L) 145 - 357 x10(3)/ L [facility] RDW Standard Deviation 47.8(H) 36.0 - 45.0 fL [facility] RDW coefficient of variation 14.5(H) 11.4 - 13.8 % [facility] Mean Platelet Volume 11.3 7.6 - 12.9 fL [facility] NRBC% auto 0.0 % [facility] NRBC Absolute 0.000 0.000 - 0.000 x10(3)/ L [facility] Blood 04/19/2024 12:0 4 PM EDT 04/19/2024 12:18 PM EDT Narrative Resulting Agency Comment Spec In Lab Sal Gray MD HEMATOLOGY ORDERABL ES Performing Organization Address City/State/[facility] Co de Phone Number [facility] [place] [address] * (ABNORMAL) Differential, Automated (04/19/2024 12:04 PM EDT) Neutrophil % 50.8 % [facility] Neutrophil Absolute 3.82 1.70 - 6.10 x10(3)/ L [facility] Lymph % 30.4 % [facility] Lymphocytes Abs 2.3 0.9 - 3.2 x10(3)/[facility] LABOR[facility]ORY Monocyte % 6.6 % [facility] Monocyte Abs 0.5 0.3 - 0.9 x10(3)/ L [facility] Eos % 11.0 % [facility] Eosinophils Abs 0.8(H) 0.0 - 0.4 x10(3)/ L [facility] Basophil % 0.8 % [facility] Baso Absolute 0.1 0.0 - 0.1 x10(3)/[facility] LABORATORY Immature Gran % 0.40 % [facility] Comment: Immature granulocytes(IG's)percentage and absolute count will include metamyelocytes, myelocytes, and promyelocytes. Blood smears from CBCs yielding IG's will be scanned manually for concordance. If this scan disagrees with the automated IG or if promyelocytes are noted, a manual differential will be performed. Immature Gran Absolute 0.03 0.00 - 0.04 x10(3)/[facility] LABORATORY Blood 04/19/2024 12:0 4 PM EDT 04/19/2024 12:18 PM EDT Narrative Resulting Agency Comment Spec In Lab Sal Gray MD HEMATOLOGY ORDERABL ES Performing Organization Address [facility] Co de Phone Number [facility] [place] [address] * Hepatitis C Antibody (04/19/2024 12:04 PM EDT) Pathologist [facility] Hepatitis C Antibody Negative Negative [facility] Blood 04/19/2024 12:0 4 PM EDT 04/19/2024 12:18 PM EDT Narrative Resulting Agency Comment Spec In Lab Sal Gray MD CHEMISTRY ORDERABLE S Performing Organization Address [facility]/ZIP Co de Phone Number [facility] [place] [address] * Iron and TIBC (04/19/2024 12:04 PM EDT) Pathologist [facility] Iron 82 45 - 160 mcg/dL [facility] TIBC 351 250 - 450 mcg/dL [facility] Iron Saturation 23 20 - 50 % [facility] Blood 04/19/2024 12:0 4 PM EDT 04/19/2024 12:18 PM EDT Narrative Resulting Agency Comment Spec In Lab Sal Gray MD CHEMISTRY ORDERABLE S Performing Organization Address City/[facility]/ZIP Co de Phone Number [facility] [place] [address] * Hepatitis B Core Antibody, Total (04/19/2024 12:04 PM EDT) Hepatitis B Core Antibody Negative Negative [facility] Blood 04/19/2024 12:0 4 PM EDT 04/19/2024 12:18 PM EDT Narrative Resulting Agency Comment Spec In Lab Sal Gray MD CHEMISTRY ORDERABLE S Performing Organization Address [facility]/ZIP Co de Phone Number [facility] [place] [address] * HIV Screen, 4th Generation ([facility]/CGP/APD/NLH) (04/19/2024 12:04 PM EDT) HIV Ab/Ag Screen Negative Negative [facility] Comment: This 4th Generation HIV test [...] HIV Comment Low Risk of HIV Infection [facility] Blood 04/19/2024 12:0 4 PM EDT 04/19/2024 12:18 PM EDT Narrative Resulting Agency Comment Spec In Lab Sal Gray MD CHEMISTRY ORDERABLE S [facility] [place] [address] * Hepatitis B Surface Antibody (04/19/2024 12:04 PM EDT) Pathologist [facility] Hepatitis B Surface Antibody, Quantitative 9.5 IU/L [facility] Comment: HepB Surface Ab Quant: Unvaccinated: < 8.5 IU/L Vaccinated: >= 11.5 IU/L Hepatitis B Surface Antibody Indeterminate [facility] Comment: Unable to determine if the antibody is present at concentrations consistent with immunity to HBV infection. Expected Results: Vaccinated: Positive Unvaccinated: Negative Blood 04/19/2024 12:0 4 PM EDT 04/19/2024 12:18 PM EDT Narrative Resulting Agency Comment Spec In Lab Sal Gray MD CHEMISTRY ORDERABLE S Performing Organization Address City/[facility]/ZIP Co de Phone Number [facility] [place] [address] * Hepatitis B Surface Antigen (04/19/2024 12:04 PM EDT) [facility] Hepatitis B Surface Antigen Negative Negative [facility] Blood 04/19/2024 12:0 4 PM EDT 04/19/2024 12:18 PM EDT Narrative Resulting Agency Comment Spec In Lab Sal Gray MD CHEMISTRY ORDERABLE S Performing Organization Address City/[facility]/ZIP Co de Phone Number [facility] [place] [address] * (ABNORMAL) Platelet count (04/19/2024 12:04 PM EDT) [facility] Platelet 95(L) 145 - 357 x10(3)/mc L [facility] Immature Plt % 3.7 0.0 - 7.4 % [facility] Comment: Limitation of the Immature Platelet Fraction (IPF)-May be less reliable when the platelet count is less than 89f229/uL due to statistical imprecision. The IPF value [...] in a decreased state of production. References: [employer] The Clinical Value of the Immature Platelet Fraction (IPF) in Cell Recovery Document Number [id number] 02/2011 [employer] The Role of the Immature Platelet Fraction (IPF) in the Differential Diagnosis of Thrombocytopenia, Document [id number] V002/05/14 P002/07 Blood 04/19/2024 12:0 4 PM EDT 04/19/2024 12:18 PM EDT Narrative Resulting Agency Comment Spec In Lab Sal Gray MD HEMATOLOGY ORDERABL ES [facility] [place] [address] * Protein Electrophoresis, serum (04/19/2024 12:04 PM EDT) Total Prot Electrophoresis 7.3 6.1 - 8.0 g/dL [facility] Albumin Electrophoresis 4.67 3.20 - 5.20 g/dL [facility] Alpha 1 Globulin 0.18 0.10 - 0.30 g/dL [facility] Alpha 2 Globulin 0.79 0.40 - 0.90 g/dL [facility] Beta Globulin 0.85 0.50 - 1.00 g/dL [facility] Gamma Globulin 0.82 0.50 - 1.30 g/dL [facility] M1 Band None Detected None Detected [facility] Blood 04/19/2024 12:0 4 PM EDT 04/19/2024 12:18 PM EDT Narrative Resulting Agency Comment Spec In Lab Sal Gray MD CHEMISTRY ORDERABLE S Performing Organization Address City/[facility]/ZIP Co de Phone Number [facility] [place] [address] * Lactate Dehydrogenase (04/19/2024 12:04 PM EDT) Lactate Dehydrogenase 143 110 - 220 unit/L [facility] Blood 04/19/2024 12:0 4 PM EDT 04/19/2024 12:18 PM EDT Narrative Resulting Agency Comment Spec In Lab Sal Gray MD CHEMISTRY ORDERABLE S Performing Organization Address [facility] Co de Phone Number [facility] [place] [address] * Ferritin (04/19/2024 12:04 PM EDT) Ferritin 119 31 - 409 ng/mL [facility] Comment: Please note that as of 09/01/2023, the reference intervals for Ferritin have been updated. Blood 04/19/2024 12:0 4 PM EDT 04/19/2024 12:18 PM EDT Narrative Resulting Agency Comment Spec In Lab Sal Gray MD CHEMISTRY ORDERABLE S Performing Organization Address [facility] Co de Phone Number [facility] [place] [address] * (ABNORMAL) Comprehensive metabolic panel (non-fasting) (04/19/2024 12:04 PM EDT) Glucose 176 65 - 199 mg/dL [facility] Comment:Diabetes: >=200 mg/d L plus symptoms Blood Urea Nitrogen 14 10 - 20 mg/dL [facility] Creatinine 1.23 0.80 - 1.50 mg/dL [facility] Sodium 141 135 - 145 mmol/L [facility] Potassium 4.8 3.5 - 5.0 mmol/L [facility] Comment: Please note: ??Patients with WBC >100,000 may have falsely elevated Potassium levels. ??For accurate Potassium quantification in these patients send serum separator tube (gold top) for subsequent determinations. ??Contact the Clinical Chemistry Laboratory if there are any questions. Chloride 106 98 - 107 mmol/L [facility] Carbon Dioxide 21(L) 22 - 31 mmol/L [facility] Anion Gap 14 5 - 15 mmol/L [facility] Calcium 10.3 8.5 - 10.5 mg/dL [facility] Protein, Total 7.5 6.1 - 8.0 g/dL [facility] Albumin 4.3 3.2 - 5.2 g/dL [facility] Aspartate Aminotransferase 19 0 - 39 unit/L [facility] Alanine Aminotransferase 20 0 - 55 unit/L [facility] Alkaline Phosphatase 92 40 - 130 unit/L [facility] Bilirubin, Total 0.5 0.2 - 1.3 mg/dL [facility] Est Glomerular Filtration Rate 63 >=60 mL/min/1. 73 m?? [facility] Comment: This patient's estimated GFR was [...] Lab Sal Gray MD CHEMISTRY ORDERABLE [place] [address] * COLONOSCOPY (09/02/2015 8:28 AM EST) COLONOSCOPY [facility] Endoscopy Patient Name: Conrad Vera ? Procedure Date: 09/02/2015 8:28 AM ? Date of : 1955 ? Age: 60 ? Order #: [id number] ? Procedure: ? Colonoscopy Indications: ? High risk colon cancer surveillance: ? Personal history of colonic polyps ? Also recurrent diverticulitis Providers: ? Roula Saez MD, Nicolle Bruner RN, ? Wendy Starks, Professor Of Musicology Referring MD: ?Cipriano Yuan MD, Yovanny Renteria ? MD Jeff Medicines: ? Propofol per Anesthesia Complications: ? No immediate complications. Procedure: ? Pre-Anesthesia Assessment: ? - Prior to the procedure, a History ? and Physical was performed, and ? patient medications, allergies and ? sensitivities were reviewed. The ? patient's tolerance of previous ? anesthesia was reviewed. ? - The risks and benefits of the ? procedure and the sedation options ? and risks were discussed with the ? patient. All questions were answered ? and informed consent was obtained. ? The procedure, indications, benefits, ? risks and alternatives were explained ? to the patient. Specifically ? discussed were potential ? complications including, but not ? limited to, bleeding, perforation, ? infection, missing a cancer, and ? adverse medication reactions. The ? patient was placed in the left ? lateral decubitus position, and a ? digital rectal exam was performed. ? The Colonoscope was inserted in the ? anus and under direct visualization, ? advanced to the terminal ileum. ? Careful inspection was made as the ? colonoscope was withdrawn. The ? colonoscopy was performed without ? difficulty. The patient tolerated the ? procedure well. The quality of the ? bowel preparation was good. ? Findings: ? Multiple small and large-mouthed diverticula were ? found in the sigmoid colon and in the descending ? colon. ? The exam was otherwise without abnormality. ? Impression: ?- Diverticulosis in the sigmoid colon ? and in the descending colon. ? - The examination was otherwise ? normal. ? - No specimens collected. Recommendation: ?Continue fiber supplements, increased ? water intake. ? Monitor for recurrent diverticulitis ? and treat early if it occurs. ? Roula Saez MD 09/02/2015 9:20 AM This report has been signed electronically. Number of Addenda: 0 Note Initiated On: 09/02/2015 8:28 AM PROVATION 09/02/2015 8:28 AM EST Cipriano Yuan MD GENERAL SURGICAL ORD ERABLES PROVATION from Last 3 Months or Most Recently Relevant to Health Maintenance Advance Directives Documents on File Type Date Recorded Patient Rn Prior Authorization Expl anation Personal Rn Prior Authorization 10/31/2023 6:40 PM Joana Vera - * Attempt Cardiopulmonary Resuscitation - Inpatient (Latest Code Status on File) Date Activated Date Inactivated Comments 02/24/2022 3:23 PM 02/25/2022 12:16 PM Question Answer Comments Code Status decision made by: Patient * Attempt Cardiopulmonary Resuscitation - Inpatient Date Activated Date Inactivated Comments 02/24/2022 12:11 PM 02/24/2022 3:23 PM Question Answer Comments Code Status decision made by: Patient Care Teams Field Laboratory Operator Relationship Specialty Start Date End Date Veronica Campbell APRN [address] [place] [address] PCP - General Family Medicine 01/18/22
--- OUTSIDE RECORDS SUMMARY | 2024-05-18 15:15 | XMS_ITS | Encounter Summary ---
Author Organization [facility] Address [address] [place] [address] Care Team Providers Care Food Quality Technician Name Role Phone Unavailable Primary Care Provider Unavailabl e Encounter Details Date Type Department Care Team (Late st Contact Info) Description 01/08/2004 Results Only [facility] [address] [place] [address] Lisa Swartz MD [address] [place] [address] [address] [place] [address] Social History Tobacco Use Types Packs/Day Years Used Date Smoking Tobacco: Never Assessed Sex and Gender Information Value Date Recorded Sex Assigned at Not on file Gender Identity Not on file Sexual Orientation Not on file documented as of this encounter Plan of Treatment Not on file documented as of this encounter Procedures Procedure Name Priority Date/Time Associated Diagnosis Comments SURGICAL PATHOLOGY Routine 01/08/2004 0:00 EDT documented in this encounter Results * SURGICAL PATHOLOGY (01/08/2004 0:00 EDT) Pathology Report: SURGICAL PATHOLOGY REPORT Reports generated via electronic interface contain original data; however they are lacking the format of the original report. Caution should be taken when reading/interpreti ng unformatted reports. Name: ? CONRAD VERA ? Accession #: ? [id number] ? : ? 1955 (Age: 48) ??M ? Collect Date: ? 01/08/2004 ? Location: ? [facility] ? Receive Date: ? 01/09/2004 ? Provider: LISA SWARTZ MD Copy to: ? Final Pathologic Diagnosis: ? Skin of right shoulder and arm, punch biopsies (2): - Sparse superficial perivascular dermatitis with mixed inflammatory infiltrate. See microscopic and ??comment. Comment: ? The biopsies show similar features that are subtle and characterized by a sparse dermal inflammatory infiltrate. ??The histopathologic features are most suggestive of urticaria or an urticarial-like eruption given the density and composition of the infiltrate. ??There is no evidence of vasculitis. ??(Dr. Guzman)/[facility] Microscopic Description: ? Sections consist of two small punch biopsies of skin that show similar histologic features. ??The epidermis and stratum corneum are generally unremarkable. ??Within the dermis, there is a sparse perivascular and interstitial inflammatory infiltrate. ??The infiltrate consists primarily of lymphocytes and histiocytes, although a small number of eosinophils and neutrophils are noted around the vasculature and within the interstitium. ??The vessels show mild reactive changes with plump endothelial cells. ??There is no fibrinoid necrosis or thrombosis identified. ??There is mild vascular congestion and slight erythrocyte extravasation. ??(Dr. Guzman)/[facility] Document reviewed and electronically signed by: Meli Guzman MD Report ??Date: 01/16/2004 13:21 By the signature above, the attending physician certifies that he/she has personally conducted a gross and/or microscopic examination of the described specimens and rendered or confirmed the above diagnosis. Specimen(s) Received: ? 3 mm punch Bx R shoulder and arm Clinical History: ? Palpable erythema; ? drug Rx Gross Description: ? Received in formalin labelled Vera and punch Bx Rt shoulder and arm are two punch biopsies of light pink skin, each measuring 0.3 cm in diameter and 0.3 cm in thickness. ??Both specimens are submitted intact in one cassette. ??(Dr. Valdes)/[facility] End of Report [facility] 01/08/2004 01/09/2004 15: 18 EDT Lisa Swartz MD PATHOLOGY ORDERABLE S D[facility] CARABALLO [address] [place] [address] documented in this encounter Visit Diagnoses Not on filedocumented in this encounter
--- OUTSIDE RECORDS SUMMARY | 2024-05-18 15:15 | XMS_ITS | Clinical Summary ---
Author Organization [facility] Address [address] [place] [address] Care Team Providers Care Commercial Pilot Name Role Phone Gianluca Nassar MD Primary Care Provider Unavail able Active Problems Problem Noted Date Diagnosed Date Coronary atherosclerosis 12/25/2010 Hypertensive disorder 12/25/2010 Hyperlipidemia 12/25/2010 Diabetes mellitus ([facility]) 12/25/2010 Gout 12/25/2010 Memory loss 12/25/2010 Social History Tobacco Use Types Packs/Day Years Used Date Smoking Tobacco: Never Assessed Sex and Gender Information Value Date Recorded Sex Assigned at Not on file Gender Identity Not on file Sexual Orientation Not on file Plan of Treatment Health Maintenance Due Date Last Done Comments Hepatitis C Screen 1955 RSV Immunization ( o r 60+ Years) (1 - 1-dose 60+ series) 2013 Fall Risk Screening 2018 COVID-19 Vaccine ( season) 2023 Care Teams Commercial Pilot Relationship Specialty Start Date End Date Gianluca Nassar MD PCP - General 12/23/10
--- OUTSIDE RECORDS SUMMARY | 2024-05-18 15:15 | XMS_ITS | Encounter Summary ---
Author Organization [facility] Address [facility] [address] [facility] [place] [address] Care Team Providers Care Transportation Dispatcher Name Role Phone Veronica Campbell APRN Primary Care Provider [phone] Encounter Details Date Type Department Care Team (Latest Contact Info) Description 04/19/2024 11:55 AM EDT - 04/19/2024 11:59 PM EDT Hospital Encounter Hematology [place] [address] Thrombocytopenia Discharge Disposition: Home Social History Tobacco Use Types Packs/Day Years [...] from your doctor or pharmacy? Rarely 04/19/2024 [facility] Utilities Answer Date Recorded In the past 12 months has [employer] electric, gas, oil, or water company threatened [...] any time in the past 12 [facility], were you homeless or living in a half-way (including now)? No 04/19/2024 Sex and Gender Information Value Date Recorded Sex Assigned at Not on file Gender Identity Not on file Sexual Orientation Not on file documented as of this encounter Medications at Time of Discharge Medication Sig Dispensed Refills Start Date End Date tadalafiL (Cialis) 5 mg tablet Take 5 mg by mouth as needed for Erectile Dysfunction. hydroCHLOROthiazide (Hydrodiuril) 12.5 mg tablet Take 12.5 mg by mouth every morning. gabapentin (Neurontin) 300 mg capsule Take 300 mg by mouth nightly. 12/01/2022 melatonin 3 mg tablet Take 1 tablet by mouth nightly. 11/13/2022 cetirizine (ZyrTEC) 10 mg tablet Take 10 mg by mouth every morning. glipiZIDE XL (Glucotrol XL) 2.5 mg ER 24 hr tablet Take 2.5 mg by mouth every morning. 12/01/2022 levothyroxine (Synthroid) 88 mcg tablet Take 88 mcg by mouth daily. 07/16/2023 FreeStyle Elma 2 [place] MiscIndications:diabetes mellitus 1 each by Other route daily. Indications: diabetes 1 each 08/03/2022 FreeStyle Elma 2 Sensor KitIndications:diabetes mellitus 1 each by Other route daily. Indications: diabetes 6 kit 3 08/03/2022 icosapent ethyL (Vascepa) 1 gram CapsuleIndications:Coron roc artery disease, unspecified vessel or lesion type, unspecified whether angina present, unspecified whether [place] or transplanted heart Take 2 capsules by mouth 2 times daily. 360 capsule 3 04/24/2022 atorvastatin (Lipitor) 20 mg Tablet Take 1 tablet by mouth nightly. 90 tablet 3 02/25/2022 nitroGLYcerin (Nitrostat) 0.4 mg Tablet, Sublingual Place 0.4 mg under the tongue every 5 minutes as needed for Chest pain. aspirin EC 81 mg Tablet, Delayed Release (E.C.) Take 81 mg by mouth daily. allopurinol (ZYLOPRIM) 300 mg tablet Take 300 mg by mouth every morning. 12/12/2010 losartan (Cozaar) 100 mg tablet Take 100 mg by mouth every morning. 12/12/2010 metFORMIN (Glucophage) 1,000 mg tablet Take 1,000 mg by mouth 2 times daily (with meals). 12/12/2010 omeprazole (PriLOSEC) [address] capsule Take 20 mg by mouth daily. Magnesium Chloride [address] tablet Take 2 tablets by mouth every morning. documented as of this encounter Plan of Treatment Upcoming Encounters Date Type Department Care Team (Late st Contact Info) Description 05/24/2024 2:00 PM EDT Office [place] [address] Bernard Linares MD [facility] [place] [address] 09/07/2024 3:00 PM EST Office Visit Dermatology at [address] [address] Jeremiah Preston MD [facility] [place] [address] documented as of this encounter Procedures Procedure Name Priority Date/Time Associated Diagnosis Comments IMMUNOGLOBULIN FREE LIGHT CHAINS, SERUM STAT 04/19/2024 12:04 PM EDT Thrombocytopenia HEMOGRAM STAT 04/19/2024 12:04 PM EDT Thrombocytopenia DIFFERENTIAL, AUTOMATED STAT 04/19/20 12:04 PM EDT Thrombocytopenia HEPATITIS C ANTIBODY Routine 04/19/2024 12:04 PM EDT Thrombocytopenia IRON AND TIBC STAT 04/19/2024 12:04 PM EDT Thrombocytopenia HEPATITIS B CORE ANTIBODY, TOTAL Routine 04/19/2024 12:04 PM EDT Thrombocytopenia HIV SCREEN, 4TH GENERATION ([facility]/CGP/APD/NLH) Routine 04/19/2024 12:04 PM EDT Thrombocytopenia HEPATITIS B SURFACE ANTIBODY Routine 04/19/2024 12:04 PM EDT Thrombocytopenia HEPATITIS B SURFACE ANTIGEN Routine 04/19/2024 12:04 PM EDT Thrombocytopenia HC VENIPUNCTURE Routine 04/19/2024 12:04 PM EDT Thrombocytopenia CBC (WITH DIFF) STAT 04/19/2024 12:04 PM EDT Thrombocytopenia HC SERUM PROT. ELECTROPHORESIS STAT 04/19/2024 12:04 PM EDT Thrombocytopenia LACTATE DEHYDROGENASE STAT 04/19/2024 12:04 PM EDT Thrombocytopenia FERRITIN STAT 04/19/2024 12:04 PM EDT Thrombocytopenia COMPREHENSIVE METABOLIC PANEL STAT 04/19/2024 12:04 PM EDT Thrombocytopenia documented in this encounter Results * (ABNORMAL) Differential, Automated (04/19/2024 12:04 PM EDT) Neutrophil % 50.8 % [facility] Neutrophil Absolute 3.82 1.70 - 6.10 x10(3)/mc L [facility] Lymph % 30.4 % [facility] Lymphocytes Abs 2.3 0.9 - 3.2 x10(3)/ L [facility] Monocyte % 6.6 % [facility] Monocyte Abs 0.5 0.3 - 0.9 x10(3)/[facility] Eos % 11.0 % [facility] Eosinophils Abs 0.8(H) 0.0 - 0.4 x10(3)/[facility] Basophil % 0.8 % [facility] Baso Absolute 0.1 0.0 - 0.1 x10(3)/[facility] Immature Gran % 0.40 % [facility] Comment: Immature granulocytes(IG's)percentage and absolute count will include metamyelocytes, myelocytes, and promyelocytes. Blood smears from CBCs yielding IG's will be scanned manually for concordance. If this scan disagrees with the automated IG or if promyelocytes are noted, a manual differential will be performed. Immature Gran Absolute 0.03 0.00 - 0.04 x10(3)/[facility] Blood 04/19/2024 12:0 4 PM EDT 04/19/2024 12:18 PM EDT Narrative Resulting Agency Comment Spec In Lab Sal Gray MD HEMATOLOGY ORDERABL ES [facility] [place] [address] * (ABNORMAL) Hemogram (04/19/2024 12:04 PM EDT) White Blood Cell 7.5 4.0 - 9.5 x10(3)/[facility] Red Blood Cell 4.11(L) 4.58 - 5.54 x10(6)/[facility] Hemoglobin 13.0(L) 13.7 - 16.5 g/dL [facility] Hematocrit 37.4(L) 40.5 - 48.5 % [facility] Mean Cell Volume 91.0 82.9 - 93.1 fL [facility] Mean Cell Hemoglobin 31.6 27.5 - 32.1 pg [facility] Mean Cell Hemoglobin Concentration 34.8 32.0 - 35.7 g/dL [facility] Platelet 95(L) 145 - 357 x10(3)/mc L [facility] RDW Standard Deviation 47.8(H) 36.0 - 45.0 fL [facility] RDW coefficient of variation 14.5(H) 11.4 - 13.8 % [facility] Mean Platelet Volume 11.3 7.6 - 12.9 fL [facility] NRBC% auto 0.0 % [facility] NRBC Absolute 0.000 0.000 - 0.000 x10(3)/mc L [facility] Blood 04/19/2024 12:0 4 PM EDT 04/19/2024 12:18 PM EDT Narrative Resulting Agency Comment Spec In Lab Sal Gray MD HEMATOLOGY ORDERABL ES [facility] [place] [address] * (ABNORMAL) Comprehensive metabolic panel (non-fasting) (04/19/2024 12:04 PM EDT) Glucose 176 65 - 199 mg/dL [facility] Comment:Diabetes: >=200 mg/d L plus symptoms Blood Urea Nitrogen 14 10 - 20 mg/dL [facility] Creatinine 1.23 0.80 - 1.50 mg/dL [facility] Sodium 141 135 - 145 mmol/L [facility] Potassium 4.8 3.5 - 5.0 mmol/L [facility] Comment: Please note: ??Patients with WBC >100,000 may have falsely elevated Potassium levels. ??For accurate Potassium quantification in these patients send serum separator tube (gold top) for subsequent determinations. ??Contact the Clinical Chemistry Laboratory if there are any questions. Chloride 106 98 - 107 mmol/L [facility] Carbon Dioxide 21(L) 22 - 31 mmol/L [facility] Anion Gap 14 5 - 15 mmol/L [facility] Calcium 10.3 8.5 - 10.5 mg/dL [facility] Protein, Total 7.5 6.1 - 8.0 g/dL [facility] Albumin 4.3 3.2 - 5.2 g/dL [facility] Aspartate Aminotransferase 19 0 - 39 unit/L [facility] Alanine Aminotransferase 20 0 - 55 unit/L [facility] Alkaline Phosphatase 92 40 - 130 unit/L [facility] Bilirubin, Total 0.5 0.2 - 1.3 mg/dL [facility] Est Glomerular Filtration Rate 63 >=60 mL/min/1. 73 m?? [facility] Comment: This patient's estimated [...] Lab Sal Gray MD CHEMISTRY ORDERABLE S [facility] [place] [address] * Lactate Dehydrogenase (04/19/2024 12:04 PM EDT) Lactate Dehydrogenase 143 110 - 220 unit/L [facility] Blood 04/19/2024 12:0 4 PM EDT 04/19/2024 12:18 PM EDT Narrative Resulting Agency Comment Spec In Lab Sal Gray MD CHEMISTRY ORDERABLE S [facility] [place] [address] * Hepatitis B Core Antibody, Total (04/19/2024 12:04 PM EDT) Hepatitis B Core Antibody Negative Negative [facility] Blood 04/19/2024 12:0 4 PM EDT 04/19/2024 12:18 PM EDT Narrative Resulting Agency Comment Spec In Lab Sal Gray MD CHEMISTRY ORDERABLE S Performing Organization Address [facility]/ZIP Co de Phone Number [facility] [place] [address] * Hepatitis B Surface Antibody (04/19/2024 12:04 PM EDT) Hepatitis B Surface Antibody, Quantitative 9.5 IU/L [facility] Comment: HepB Surface Ab Quant: Unvaccinated: < 8.5 IU/L Vaccinated: >= 11.5 IU/L Hepatitis B Surface Antibody Indeterminate [facility] Comment: Unable to determine if the antibody is present at concentrations consistent with immunity to HBV infection. Expected Results: Vaccinated: Positive Unvaccinated: Negative Blood 04/19/2024 12:0 4 PM EDT 04/19/2024 12:18 PM EDT Narrative Resulting Agency Comment Spec In Lab Sal Gray MD CHEMISTRY ORDERABLE S Performing Organization Address City/[facility]/ZIP Co de Phone Number [facility] [place] [address] * Hepatitis B Surface Antigen (04/19/2024 12:04 PM EDT) Hepatitis B Surface Antigen Negative Negative [facility] Blood 04/19/2024 12:0 4 PM EDT 04/19/2024 12:18 PM EDT Narrative Resulting Agency Comment Spec In Lab Sal Gray MD CHEMISTRY ORDERABLE S [facility] [place] [address] * Hepatitis C Antibody (04/19/2024 12:04 PM EDT) Hepatitis C Antibody Negative Negative [facility] Blood 04/19/2024 12:0 4 PM EDT 04/19/2024 12:18 PM EDT Narrative Resulting Agency Comment Spec In Lab Sal Gray MD CHEMISTRY ORDERABLE S Performing Organization Address [facility] Co de Phone Number [facility] [place] [address] * HIV Screen, 4th Generation ([facility]/CGP/APD/NLH) (04/19/2024 12:04 PM EDT) [facility] HIV Ab/Ag Screen Negative Negative [facility] Comment: This 4th Generation [...] HIV Comment Low Risk of HIV Infection [facility] Blood 04/19/2024 12:0 4 PM EDT 04/19/2024 12:18 PM EDT Narrative Resulting Agency Comment Spec In Lab Sal Gray MD CHEMISTRY ORDERABLE S Performing Organization Address City/[facility]/ZIP Co de Phone Number [facility] [place] [address] * Protein Electrophoresis, serum (04/19/2024 12:04 PM EDT) Pathologist [facility] Total Prot Electrophoresis 7.3 6.1 - 8.0 g/dL [facility] Albumin Electrophoresis 4.67 3.20 - 5.20 g/dL [facility] Alpha 1 Globulin 0.18 0.10 - 0.30 g/dL [facility] Alpha 2 Globulin 0.79 0.40 - 0.90 g/dL [facility] Beta Globulin 0.85 0.50 - 1.00 g/dL [facility] Gamma Globulin 0.82 0.50 - 1.30 g/dL [facility] M1 Band None Detected None Detected [facility] Blood 04/19/2024 12:0 4 PM EDT 04/19/2024 12:18 PM EDT Narrative Resulting Agency Comment Spec In Lab Sal Gray MD CHEMISTRY ORDERABLE S Performing Organization Address City/[facility]/ZIP Co de Phone Number [facility] [place] [address] * (ABNORMAL) Free Light Chains, Serum (04/19/2024 12:04 PM EDT) [facility] [place] Free Light Chain 6.11(H) 0.72 - 2.75 mg/dL [facility] Lambda Free Light Chain 3.23(H) 0.57 - 2.15 mg/dL [facility] [place]/Lambda FLC Ratio 1.8916 0.4000 - 2.5800 [facility] Blood 04/19/2024 12:0 4 PM EDT 04/19/2024 12:18 PM EDT Narrative Resulting Agency Comment Spec In Lab Sal Gray MD CHEMISTRY ORDERABLE S [facility] [place] [address] * Iron and TIBC (04/19/2024 12:04 PM EDT) [facility] Iron 82 45 - 160 mcg/dL [facility] TIBC 351 250 - 450 mcg/dL [facility] Iron Saturation 23 20 - 50 % [facility] Blood 04/19/2024 12:0 4 PM EDT 04/19/2024 12:18 PM EDT Narrative Resulting Agency Comment Spec In Lab Sal Gray MD CHEMISTRY ORDERABLE S Performing Organization Address [facility] Co de Phone Number [facility] [place] [address] * Ferritin (04/19/2024 12:04 PM EDT) [facility] Ferritin 119 31 - 409 ng/mL [facility] Comment: Please note that as of 09/01/2023, the reference intervals for Ferritin have been updated. Blood 04/19/2024 12:0 4 PM EDT 04/19/2024 12:18 PM EDT Narrative Resulting Agency Comment Spec In Lab Sal Gray MD CHEMISTRY ORDERABLE S Performing Organization Address [facility] de Phone Number [facility] [place] [address] * (ABNORMAL) Platelet count (04/19/2024 12:04 PM EDT) [facility] Platelet 95(L) 145 - 357 x10(3)/mc L [facility] Immature Plt % 3.7 0.0 - 7.4 % [facility] Comment: Limitation of the Immature Platelet Fraction (IPF)-May be less reliable when the platelet count is less than 73x065/uL due to statistical imprecision. The IPF value [...] in a decreased state of production. References: [employer] The Clinical Value of the Immature Platelet Fraction (IPF) in Cell Recovery Document Number 10-1143 02/2011 [employer] The Role of the Immature Platelet Fraction (IPF) in the Differential Diagnosis of Thrombocytopenia, Document MKT-10-1209 V002/05/14 P002/07 Blood 04/19/2024 12:0 4 PM EDT 04/19/2024 12:18 PM EDT Narrative Resulting Agency Comment Spec In Lab Sal Gray MD HEMATOLOGY ORDERABL ES [facility] [place] [place] [address] documented in this encounter Visit Diagnoses Diagnosis Thrombocytopenia Thrombocytopenia, unspecified documented in this encounter Care Teams Transportation Dispatcher Relationship Specialty Start Date End Date Veronica Campbell APRN [address] [place] [address] PCP - General Family Medicine 01/18/22 documented as of this encounter
--- OUTSIDE RECORDS SUMMARY | 2024-05-18 15:15 | XMS_ITS | Encounter Summary ---
Author Organization [facility] [place] [address] Care Team Providers Care Medical Collections Name Role Phone Veronica Campbell CHRISTEL Primary Care Provider [phone] Encounter Details Date Type Department Care Team (Late st Contact Info) Description 12/30/2023 [place] [address] Higinio Villalobos MD [facility] [place] [address] Social History Tobacco Use Types Packs/Day Years [...] on file documented as of this encounter Miscellaneous Notes * Telephone Encounter - Higinio Villalobos MD - 12/30/2023 12:17 PM EDT Orthopedic surgery telephone note: I called this patient regarding his right shoulder. We discussed that his recent shoulder aspiration was negative which is relatively reassuring about the absence of infection, although we can never be sure without open surgery. The next step to address his issue is an intra-articular steroid injection. He had significant discomfort with his injection in radiology, and he is open to other options. At this point we will get him scheduled for an ultrasound-guided injection with Dr. Ma. I can then see him back in the clinic in January to see how he is recovering at that point. documented in this encounter Plan of Treatment Upcoming Encounters Date Type Department Care Team (Late st Contact Info) Description 05/24/2024 2:00 PM EDT Office [place] [address] Bernard Linares MD [facility] [place] [address] 09/07/2024 3:00 PM EST Office Visit Dermatology at [facility] [address] [place] [address] Jeremiah Preston MD [facility] [address] [place] [address] documented as of this encounter Visit Diagnoses Not on filedocumented in this encounter Care Teams Medical Collections Relationship Specialty Start Date End Date Veronica Campbell APRN [address] [place] [address] PCP - General Family Medicine 01/18/22 documented as of this encounter
--- OUTSIDE RECORDS SUMMARY | 2024-05-18 15:15 | XMS_ITS | Encounter Summary ---
[place] [address] Care Team Providers Care Environmental Services Worker Name Role Phone Veronica Campbell APRN Primary Care Provider [phone] Reason for Referral * Consultation (Routine) - Authorized Specialty Diagnoses / Procedures Referred By Conttracey t Referred To Contact Hematology and Oncology Diagnoses Thrombocytopenia, unspecified CO-OCCURING ANEMIA, FATIGUE, EDEMA. Veronica Campbell APRN [address] [place] [address] [facility] [address] [place] [address] Referral ID Status Reason Start Date Expiration Date Visits Requested Visits Authorized [id number] Authorized Consult, Test & Treat PCP Updated and/or Approved 02/10/2024 02/09/2025 6 6 Encounter Details Date Type Department Care Team (Latest Contact Info) Description 02/23/2024 Transcribe Orders eDH Incoming Referrals [phone] Veronica Campbell APRN [address] [place], [place] [address] Thrombocytopenia, unspecified Social History Tobacco Use Types Packs/Day Years [...] 2:00 PM EDT Office [place] [address] Bernard Linares MD [facility] [place] [address] 09/07/2024 3:00 PM EST Office Visit Dermatology at [facility] [address] [place] [address] Jeremiah Preston MD [facility] [place] [address] Scheduled Referrals Name Type Priority Associated Diagnoses Orde r Schedule Referral to Hematology and Oncology Outpatient Referral Routine Thrombocytopenia, unspecified Ordered: 02/23/2024 documented as of this encounter Visit Diagnoses Diagnosis Thrombocytopenia, unspecified documented in this encounter Care Teams Environmental Services Worker Relationship Specialty Start Date End Date Veronica Campbell APRN [address] [place] [address] PCP - General Family Medicine 01/18/22 documented as of this encounter
--- OUTSIDE RECORDS SUMMARY | 2024-05-18 15:15 | XMS_ITS | Encounter Summary ---
Author Organization [facility] Address [facility] [place] [address] Care Team Providers Care Hand Shaker Name Role Phone Veronica Campbell CHRISTEL Primary Care Provider [phone] Encounter Details Date Type Department Care Team (Latest Contact Info) Description 12/24/2023 1:13 PM EDT - 12/24/2023 11:59 PM EDT Hospital Encounter XRay at [address] [place] [address] Higinio Villalobos MD [facility] [place] [address] Right shoulder pain, unspecified chronicity Discharge Disposition: Home Social History Tobacco Use [...] file documented as of this encounter Discharge Instructions * Patient Instructions* Aye Arora - 12/24/2023 1:33 PM EDT Post Aspiration Patient Instructions You underwent an aspiration by DR. HAIDER/HEIDY IBARRA PA-C in the diagnostic section of radiology. Procedure: RIGHT SHOULDER ASPIRATION In the days following the aspiration: Low intensity movement and exercise of the affected joint. Avoid movements that worsen pain. No submersion of the aspiration site in water for 48 hours (pool/patel/hot tub, etc.), but you may shower as usual. Keep the aspiration site dry, clean and covered for 48 hours. If the dressing falls off, you may replace it with a Band-aid. During the first 48 hours following the aspiration you may experience mild discomfort at the aspiration site. If you experience pain or discomfort in the affected area, do the following: Apply cold compress to the affected area. No submersion of joint in water for 48-72 hours however showering is okay. If allowed by your physician, take an anti-inflammatory medication such as ibuprofen (example: Advil), Acetaminophen (example: Tylenol) or Aspirin. IMPORTANT The risk of infection exists whenever the skin is punctured. The risk can be minimized by keeping the aspiration site clean. However, be aware of the following signs of an infection: Redness and swelling at the aspiration site. Increased pain. Fever and/or chills. Decreased range of motion in the joint near the aspiration site. When to call the Radiology Department: Please call with any questions or concerns. If it is during regular office hours, please call [phone]. If it is after regular office hours, or on weekends or holidays, please call [phone] and ask to speak to the [employer] hydroelectric production manager. Revised 10/20/22 documented in this encounter Medications at Time of Discharge [...] by mouth daily. 07/16/2023 FreeStyle Elma 2 [place] MiscIndications:diabete s mellitus 1 each by Other route daily. Indications: diabetes 1 each 08/03/2022 FreeStyle Elma 2 Sensor KitIndications:diabetes mellitus 1 each by Other route daily. Indications: diabetes 6 kit 3 08/03/2022 icosapent ethyL (Vascepa) 1 gram CapsuleIndications:Zayra nary artery disease, unspecified vessel or lesion type, unspecified whether angina present, unspecified whether [place] or transplanted heart Take 2 capsules by [...] Take 2 tablets by mouth every morning. amoxicillin-clavulanate (Augmentin) 875-125 mg tablet Take 1 tablet by mouth 2 times daily. 20 tablet 11/26/2023 01/26/2024 documented as of this encounter Plan of Treatment Upcoming Encounters Date Type Department Care Team (Late st Contact Info) Description 05/24/2024 2:00 PM EDT Office Visit [place] [id number] Bernard Linares MD [facility] [place] [address] 09/07/2024 3:00 PM EST Office Visit Dermatology at [facility] [address] [place] [address] Jeremiah Preston MD [facility] [place] [address] documented as of this encounter Procedures Procedure Name Priority Date/Time Associated Diagnosis Comments XR JOINT ASPIRATION - LARGE JOINT RIGHT Routine 12/24/2023 1:33 PM EDT Right shoulder pain, unspecified chronicity documented in this encounter Results * XR Fluoro Guided Joint Aspiration Large Right (12/24/2023 1:33 PM EDT) Anatomical Region Laterality Modality Right Radio Fluoroscop y Impressions 12/24/2023 2:11 PM EDT Technically successful right glenohumeral joint aspiration. Resident/Fellow: Silvestre Haider MD Service Provider: Silvestre Haider MD I, Heidy Ibarra PA-C, supervised the resident during the entire procedure. No attending radiologist was present. Attending of Record: Dr. Maddy Campbell MD Preliminary report signed by: JACOB Birch at 12/24/2023 1:55 PM I have personally reviewed the image(s) and the provider's interpretation and agree with the findings, Maddy Campbell MD at 12/24/2023 2:11 PM Thank you for letting us participate in the care of this patient. ??If you are a health care provider and have any questions regarding this report, please contact the number below. ??For patients who have questions please contact the health resident care technician that requested your imaging first. ? Electronically signed by: Maddy Campbell MD, [facility] ([phone]), at 12/24/2023 2:11 PM Narrative 12/24/2023 2:11 PM EDT RIGHT GLENOHUMERAL JOINT ASPIRATION UNDER FLUOROSCOPY CLINICAL HISTORY: pain after cuff repair TECHNIQUE: After an extensive conversation with the patient regarding risks and benefits, including but not limited to: infection, an allergic reaction to any injected medications, bleeding, pain/discomfort due to the procedure, and inadequate/non-diagnostic sampling, oral and written consent were obtained. A pre- procedural time-out was performed, including review of the patient's relevant electronic medical record and allergies, as per [facility] [place] protocol. The patient was placed supine with the right arm in external rotation on the fluoroscopic table. ??The skin over the anterior right glenohumeral joint was prepped and draped in the usual sterile manner. 1% Lidocaine was used to achieve local anesthesia. Under fluoroscopic guidance, 18-gauge 1.5 inch needle was advanced into the joint space. ??A small amount of air was injected into the joint space to document needle placement. No fluid was returned. The needle was repositioned intra-articularly and aspiration was reattempted. Again, no fluid was returned. 5 mL of sterile saline was instilled into the joint. No fluid was returned. A small amount of Omnipaque 300 was injected into the joint for final documentation of intra-articular placement. All needles were removed at the end of the procedure. A dry sterile dressing was placed over the aspiration site. FINDINGS: 1. ??Small amount of injected air in the right glenohumeral joint space. 2. No aspirate obtained. MEDICATIONS: Lidocaine 1% - <5 ml, for subcutaneous anesthesia. FLUOROSCOPY TIME: 0.20 minutes. COMPLICATIONS: None immediate. POST-PROCEDURE CARE: Instructions on monitoring of infection and management of post procedure pain were reviewed with and provided to the patient. Procedure Note Maddy Campbell MD - 12/24/2023 RIGHT GLENOHUMERAL JOINT ASPIRATION UNDER FLUOROSCOPY CLINICAL HISTORY: pain after cuff repair TECHNIQUE: After an extensive conversation with the patient regarding risks andbenefits, including but not limited to: infection, an allergic reaction to anyinjected medications, bleeding, pain/discomfort due to the procedure, and inadequate/non-diagnostic sampling, oral and written consent wereobtained. A pre- procedural time-out was performed, including review of thepatient's relevant electronic medical record and allergies, as per [facility] [place] [place] protocol. The patient was placed supine with the right arm in external rotation onthe fluoroscopic table. The skin over the anterior right glenohumeral jointwas prepped and draped in the usual sterile manner. 1% Lidocaine was used toachieve local anesthesia. Under fluoroscopic guidance, 18-gauge 1.5 inch needlewas advanced into the joint space. A small amount of air was injected intothe joint space to document needle placement. No fluid was returned. Theneedle was repositioned intra-articularly and aspiration was reattempted. Again, nofluid was returned. 5 mL of sterile saline was instilled into the joint. Nofluid was returned. A small amount of Omnipaque 300 was injected into the joint forfinal documentation of intra-articular placement. All needles were removed atthe end of the procedure. A dry sterile dressing was placed over the aspirationsite. FINDINGS: 1. Small amount of injected air in the right glenohumeral joint space. 2. No aspirate obtained. MEDICATIONS: Lidocaine 1% - <5 ml, for subcutaneous anesthesia. FLUOROSCOPY TIME: 0.20 minutes. COMPLICATIONS: None immediate. POST-PROCEDURE CARE: Instructions on monitoring of infection andmanagement of post procedure pain were reviewed with and provided to the patient. IMPRESSION Technically successful right glenohumeral joint aspiration. Resident/Fellow: Silvestre Haider MD Service Provider: Silvestre Haider MD I, Heidy Ibarra PA-C, supervised the resident during the entire procedure.No attending radiologist was present. Attending of Record: Dr. Maddy Campbell MD Preliminary report signed by: JACOB Birch at 12/24/2023 1:55 PM I have personally reviewed the image(s) and the provider's interpretationand agree with the findings, Maddy Campbell MD at 12/24/2023 2:11 PM Thank you for letting us participate in the care of this patient. If youare a health care provider and have any questions regarding this report,please contact the number below. For patients who have questions please contactthe health resident care technician that requested your imaging first. Higinio Villalobos MD IMG FLUORO ORDERABLE S documented in this encounter Visit Diagnoses Diagnosis Right shoulder pain, unspecified chronicity documented in this encounter Administered Medications Inactive Administered Medications - up to 3 most recent administrations Medication Order MAR Action Action Date Dose Rate Site iohexoL (Omnipaque) (300 mg/mL) solution 0-10 mL 0-10 mL, Intra-articular, ONCE, 1 dose, On Wed12/24/23 at 1400, Warning Vesicant/Irritant Medication , Radiology Contrast, Routine Given 12/24/2023 2:00 PM EDT 2 mLs sodium chloride 0.9% injection 0-10 mL 0-10 mL, Intra-articular, ONCE, 1 dose, On Wed12/24/23 at 1400, Radiology Protocol Medication, Routine Given 12/24/2023 2:00 PM EDT 10 mLs documented in this encounter Care Teams Hand Shaker Relationship Specialty Start Date End Date Veronica Campbell APRN [address] [place] [address] PCP - General Family Medicine 01/18/22 documented as of this encounter
--- OUTSIDE RECORDS SUMMARY | 2024-05-18 15:15 | XMS_ITS | Encounter Summary ---
Author Organization [facility] Address [address] [place] [address] Care Team Providers Care Screen Tacker Name Role Phone Gianluca Nassar MD Primary Care Provider Unavail able Encounter Details Date Type Department Care Team (Late st Contact Info) Description 05/27/[address] [facility] Pathology & Laboratory Medicine - [facility] [address], [place] [id number] Outr Resulting Lab, Provider Social History Tobacco [...] Procedure Name Priority Date/Time Associated Diagnosis Comments RHEUMATOID FACTOR Routine 05/26/2023 14: 45 EDT ANTI NUCLEAR AB (CAITLYN), IFA Routine 05/26/2023 14:45 EDT documented in this encounter Results * RHEUMATOID FACTOR (05/26/2023 14:45 EDT) Rheumatoid Factor <8.6 <12.0 IU/mL 05/27/2023 19:56 EDT [facility] Blood VENOUS BLOOD / Unknown 05/26/2023 14:45 EDT 05/27/2023 19:35 EDT Provider Outr Resulting Lab CHEMISTRY & BLOOD GAS ORDERABLES [facility] [address] [place] [address] * (ABNORMAL) ANTI NUCLEAR AB (CAITLYN), IFA (05/26/2023 14:45 EDT) CAITLYN Interpretation Positive(A) Negative 05/28/2023 16:48 EDT [facility] CAITLYN Titer and Pattern 1 1:80 Speckled 05/28/2023 16:48 EDT [facility] Blood VENOUS BLOOD / Unknown 05/26/2023 14:45 EDT 05/27/2023 19:35 EDT Narrative [facility] - 05/28/2023 16:48 EDT Results were obtained with the INOVA NOVA Lite HEp-2 CAITLYN Kit by indirect immunofluorescence. Provider Outr Resulting Lab IMMUNOLOGY A ND SEROLOGY ORDERABLES [facility] [address] [place] [address] documented in this encounter Visit Diagnoses Not on filedocumented in this encounter Care Teams Screen Tacker Relationship Specialty Start Date End Date Gianluca Nassar MD PCP - General 12/23/10 documented as of this encounter
--- OUTSIDE RECORDS SUMMARY | 2024-05-18 15:15 | XMS_ITS | Encounter Summary ---
Author Organization [facility] [place] [address] [place] [address] Care Team Providers Care Account General Manager Name Role Phone Veronica Campbell CHRISTEL Primary Care Provider [phone] Reason for Visit * Reason Comments Establish Care NXR R SHLDR US IN JECTION * Consultation (Routine) - Closed Specialty Diagnoses / Procedures Referred By Jason garcia Referred To Contact Orthopaedic Surgery / Orthopaedics Diagnoses NXR R SHLDR US INJECTION Procedures NEW PATIENT Higinio Villalobos MD [facility] [place] [address] Laron aM MD [facility] [place] [address] Referral ID Status Reason Start Date Expiration Date V isits Requested Visits Authorized [id number] Closed Consult, Test & Treat 01/28/2024 01/27/2025 1 1 Encounter Details Date Type Department Care Team (Late st Contact Info) Description 01/28/2024 2:00 PM EDT Office [place] [phone] Laron Ma MD [facility] [place] [address] Adhesive capsulitis of right shoulder (Primary Dx); Right shoulder pain, unspecified chronicity Social History [...] Sign Reading Time Taken Comments Blood Pressure - - Pulse - - Temperature - - Respiratory Rate - - Oxygen Saturation - - Inhaled Oxygen Concentration - - Weight 98.4 kg (217 lb) 01/28/2024 1:49 PM EDT Height 177.8 cm (5' 10) 01/28/2024 1:49 PM EDT Body Mass Index 31.14 01/28/2024 1:49 PM EDT documented in this encounter Progress Notes * Laron Ma MD - 01/28/2024 2:00 PM EDT [facility] NEW VISIT NOTE CC: Establish Care (NXR R SHLDR US INJECTION) HPI: The patient is a 68 y.o. male who presents with Establish Care (NXR R SHLDR US INJECTION) Patient with prior right shoulder rotator cuff repair, with now small full thickness supraspinatus tear and a partial articular sided tear, mild subacromial bursitis and who presents today with rightshoulder pain. This pain began after his surgery, and today is rated 2/10. He is describing it as st iffness and tightness. Overall the pain is been staying about the same, worse with exercise and use, improved with rest. The patient is retired and walks for exercise. The patient has tried some physical therapy sessions, and so far has not had much relief of the pain. Relevant labs- BMI Readings from Last 2 Encounters: 01/28/24 31.14 kg/m?? 01/26/24 31.16 kg/m?? No results found for: HA1C No results found for: INR, PT Lab Results Component Value Date NA 136 04/09/2022 K 4.5 04/09/2022 CL 102 04/09/2022 CO2 24 04/09/2022 BUN 13 04/09/2022 CREATININE 1.09 04/09/2022 GLUCOSE 259 (H) 04/09/2022 GLUCFASTING 200 (H) 02/25/2022 CALCIUM 10.5 04/09/2022 ESTGFR 73 04/09/2022 BP Readings from Last 3 Encounters: 01/26/24 151/78 11/26/23 153/69 11/10/23 153/79 Lab Results Component Value Date WBC 5.2 11/26/2023 HGB 11.7 (L) 11/26/2023 HCT 33.9 (L) 11/26/2023 MCV 92.1 11/26/2023 PLATELET 118 (L) 11/26/2023 Lab Results Component Value Date CHLPL 100 02/25/2022 Lab Results Component Value Date HDL 20 02/25/2022 Lab Results Component Value Date LDLCHOL Not Calculated 02/25/2022 Lab Results Component Value Date TRIG 420 02/25/2022 Lab Results Component Value Date CHOLHDL 5.0 02/25/2022 Anticoagulant & Antiplatelet medications Antibiotics No active infections RADIOLOGY No new imaging. Physical Exam: Vitals: Ht 177.8 cm (5' 10) Wt 98.4 kg (217 lb) BMI 31.14 kg/m?? - Gen: Alert and following commands, no acute distress - CV: pulses 2+ and equal - Skin: Intact skin, non-erythematous, no rashes or breakdown appreciated MSK At the right Shoulder Exam Inspection: Normal muscle bulk and tone No atrophy No deformity No effusion noted Palpation- No TTP at the subacromial space No TTP at the biceps tendon long head No TTP at the coracoid process No TTP at the ACJ No TTP at the periscapular muscles ROM (degrees): - Abduction: 70 - External rotation: 15 - Internal rotation: low hip - Scapular dyskinesis: neg Strength: (R/L) Abduction: 5/5 External rotation: 5/5 Internal rotation: 5/5 Diagnostic Ultrasound Pre-scan of the joint does not reveal effusion PROCEDURE Ultrasound guided injection. Procedure injection location: Glenohumeral joint Side: Right Indication: Pain and limited function Equipment: Orbiter with 4-20 MHz linear transducer, 4-12 MHz linear transducer, 8-18MHz hockey stick and 1-5 MHz curvilinear probe for adequate depth. After discussion of the risks and potential benefits of the procedure, verbal informed consent was obtained. Justification for use of ultrasound guidance: The use of direct ultrasound visualization of the needle (rather than a non-guided injection) was required to increase patient safety by excluding inadvertent intramuscular or intratendinous placement and minimizing bleeding by avoiding osteochondral orvascular injury from the needle. Additionally, the increased accuracy of placement may increase clinical effectiveness and will allow higher diagnostic specificity when evaluating effectiveness of this injection. The injection location was confirmed by a prescan of the area. Following this, the area was cleanedin the usual sterile fashion with chlorhexidine. Subsequently a 25g 1.5in needle was advanced to the target under direct ultrasound visualization using an in-plane approach. Aspiration revealed no blo od. The injection was performed with solution volumes as below. Lidocaine 1% 2 ml Triamcinolone 40 mg/ml 1ml The needle was removed. Hemostasis was achieved with direct pressure. There were no complications and the patient tolerated the procedure well. Post procedure instructions were provided. ASSESSMENT & PLAN Impression: chronic right shoulder stiffness due to adhesive capsulitis that likely developed after shoulder surgery. At this point the patient is significantly limited his range of motion and has pain when he gets to a larger range of motion, therefore will provide him with a corticosteroid injection to the sh oulder glenohumeral joint today. Additionally the patient will go back to physical therapy to work on stretching. We showed him stretching and office today including external rotation, sleep or stretching, wall walks. Will follow- up to see how the patient is progressing. Plan: - Therapeutic exercise: PT to address biomechanical issues noted on examination. - Medications: No changes were made today.. Counseled regarding side effects and appropriate administration of medications as applicable. - Diagnostics: none - Injections: Discussed the risks of a potential joint injection, including bleeding, infection, transient blood sugar elevation, the possibility of wearing out cartilage over time. Ultrasound guided injection provided today to the right shoulder GHJ - Medical Decision Making: Discussed surgical and non-surgical options. Detailed the patient's condition, prognosis, further work-up and treatment options. Activity modification was discussed. Answered all of the patient's questions. - F/U - for re-evaluation to ensure we have the appropriate diagnosis and treatment is optimized. Return sooner if needed, advised to call with any questions or concerns in the interim. Laron Ma MD Sports Superintendent Overhead DistributionBasket Filler of Orthopedics [facility] The note was created using dictation, please excuse any grammatical or word errors. documented in this encounter Plan of Treatment Upcoming Encounters Date Type Department Care Team (Late st Contact Info) Description 05/24/2024 2:00 PM EDT Office [place] [address] Bernard Linares MD [facility] [place] [address] 09/07/2024 3:00 PM EST Office Visit Dermatology at [place] [address] [place] [address] Jeremiah Preston MD [facility] [place] [address] documented as of this encounter Visit Diagnoses Diagnosis Adhesive capsulitis of right shoulder- Primary Adhesive capsulitis of shoulder Right shoulder pain, unspecified chronicity documented in this encounter Administered Medications Inactive Administered Medications - up to 3 most recent administrations Medication Order MAR Action Action Date Dose Rate Site lidocaine (Xylocaine) 1% (10 mg/mL) injection 30 mg 30 mg, Intra-articular, ONCE, 1 dose, On Wed01/28/24 at 1445, Routine Given 01/28/2024 2:20 PM EDT 30 mg triamcinolone acetonide (Kenalog-40) (40 mg/mL) injection 40 mg 40 mg, Intra-articular, ONCE, 1 dose, On Wed01/28/24 at 1445, Routine Given 01/28/2024 2:20 PM EDT 40 mg documented in this encounter Care Teams Account General Manager Relationship Specialty Start Date End Date Veronica Campbell APRN [address] [place] [address] PCP - General Family Medicine 01/18/22 documented as of this encounter
--- OUTSIDE RECORDS SUMMARY | 2024-05-18 15:15 | XMS_ITS | Encounter Summary ---
[place] [address] Care Team Providers Care Canine Enforcement Officer Name Role Phone Veronica Campbell CHRISTEL Primary Care Provider [phone] Reason for Referral * Diagnostic Test (Routine) - Closed Specialty Diagnoses / Procedures [facility] Referred To Contact Radiology Diagnoses Mediastinal adenopathy Multiple lung nodules on CT Procedures CT Chest wo Contrast (Generic) Paulie Velazquez MD [facility] [place] [address] [facility] [place] [address] Referral ID Status Reason Start Date Expiration Date V isits Requested Visits Authorized [id number] Closed Specialty Service Requested 08/02/2023 01/30/2025 1 1 Reason for Visit * Diagnostic Test (Routine) - Closed Specialty Diagnoses / Procedures Ref[facility] Referred To Contact Radiology Diagnoses Mediastinal adenopathy Multiple lung nodules on CT Procedures CT Chest wo Contrast (Generic) Paulie Velazquez MD [facility] [place] [address] [facility] [place] [address] Referral ID Status Reason Start Date Expiration Date V isits Requested Visits Authorized [id number] Closed Specialty Service Requested 08/02/2023 01/30/2025 1 1 Encounter Details Date Type Department Care Team (Latest Contact Info) Description 01/26/2024 2:29 PM EDT - 01/26/2024 11:59 PM EDT Hospital Encounter CT Scan at [facility] [place] [address] Paulie Velazquez MD [facility] [place] [address] Mediastinal adenopathy; Multiple lung nodules on CT Discharge Disposition: Home Social History Tobacco Use [...] by mouth daily. 07/16/2023 FreeStyle Elma 2 [place] MiscIndications:diabetes mellitus 1 each by Other route daily. Indications: diabetes 1 each 08/03/2022 FreeStyle Elma 2 Sensor KitIndications:diabetes mellitus 1 each by Other route daily. Indications: diabetes 6 kit 3 08/03/2022 icosapent ethyL (Vascepa) 1 gram CapsuleIndications:Coron roc artery disease, unspecified vessel or lesion type, unspecified whether angina present, unspecified whether tunica-biloxi or transplanted heart Take 2 capsules by [...] 2:00 PM EDT Office Visit [place] [address] Bernard Linares MD [facility] [place] [address] 09/07/2024 3:00 PM EST Office Visit Dermatology at [facility] [address] [place] [address] Jeremiah Preston MD [facility] [address] [place] [place] [address] documented as of this encounter Procedures Procedure Name Priority Date/Time Associated Diagnosis Comments CT CHEST WO CONTRAST (GENERIC) Routine 01/26/2024 2:35 PM EDT Mediastinal adenopathy Multiple lung nodules on CT documented in this encounter Results * CT Chest wo Contrast (Generic) (01/26/2024 2:35 PM EDT) WORKSTATION ID [id number] RAD Anatomical Region Laterality Modality Chest Computed Tomogra phy Impressions 01/26/2024 3:37 PM EDT Reduced burden of multi lobar airspace disease with stable and smaller mediastinal lymph nodes. Thank you for letting us participate in the care of this patient. ??If you are a health care provider and have any questions regarding this report, please contact the number below. ??For patients who have questions please contact the health grounds caretaker that requested your imaging first. ? Narrative 01/26/2024 3:37 PM EDT EXAMINATION: CT CHEST WO CONTRAST (GENERIC) CLINICAL HISTORY: Lymphadenopathy, chest or axilla R59.0, Localized enlarged lymph nodes - R91.8, Other nonspecific abnormal finding of lung field TECHNIQUE: Helical CT of the chest without intravenous contrast administration. Thin-section reconstructions as well as coronal and sagittal reformatted images were generated. COMPARISON: June 08, 2023 FINDINGS: Pulmonary parenchyma: Improved aeration bilaterally with [...] gland contours. Skeletal structures: No significant findings. Procedure Note Colleen Carson MD - 01/26/2024 EXAMINATION: CT CHEST WO CONTRAST (GENERIC) CLINICAL HISTORY: Lymphadenopathy, chest or axilla R59.0, Localized enlarged lymph nodes - R91.8, Other nonspecificabnormal finding of lung field TECHNIQUE: Helical CT of the chest without intravenous contrastadministration. Thin-section reconstructions as well as coronal and sagittal reformattedimages were generated. COMPARISON: June 08, 2023 FINDINGS: Pulmonary parenchyma: Improved aeration bilaterally with residualgroundglass opacity at the azygoesophageal recess and at the superior segment leftlower lobe and centrally in the upper lobes. No residual mass. Noconsolidation. Airways: No central endobronchial abnormality. Pleura: No effusion. Lymph nodes: Stable and smaller borderline and enlarged mediastinal lymphnodes. Heart and vasculature: Normal size heart without significant pericardial effusion Other mediastinal structures: No significant findings. Upper abdomen: Splenomegaly. Normal adrenal gland contours. Skeletal structures: No significant findings. IMPRESSION Reduced burden of multi lobar airspace disease with stable and smaller mediastinal lymph nodes. Thank you for letting us participate in the care of this patient. If youare a health care provider and have any questions regarding this report,please contact the number below. For patients who have questions please contactthe health grounds caretaker that requested your imaging first. Paulie Velazquez MD IM CT ORDERABL documented in this encounter Visit Diagnoses Diagnosis Mediastinal adenopathy Enlargement of lymph nodes Multiple lung nodules on CT documented in this encounter Care Teams Canine Enforcement Officer Relationship Specialty Start Date End Date Veronica Campebll APRN [address] [place] [address] PCP - General Family Medicine 01/18/22 documented as of this encounter
--- OUTSIDE RECORDS SUMMARY | 2024-05-18 15:15 | XMS_ITS | Encounter Summary ---
Author Organization [facility] Address [facility] [place] [address] Care Team Providers Care Real Estate Officer Name Role Phone Veronica Campbell APRN Primary Care Provider Encounter Details Date Type Department Care Team (Latest Contact Info) Description 04/19/2024 Travel Social History Tobacco Use Types Packs/Day Years [...] from your doctor or pharmacy? Rarely 04/19/2024 [facility] Utilities Answer Date Recorded In the past 12 months has [facility] [employer], gas, oil, or water [employer] threatened to shut off services in your [...] any time in the past 12 m [facility], were you homeless or living in a correction (including now)? No 04/19/2024 Sex and Gender Information Value Date Recorded Sex Assigned at Not on file Gender Identity Not on file Sexual Orientation Not on file documented as of this encounter Plan of Treatment Upcoming Encounters Date Type Department Care Team (Late st Contact Info) Description 05/24/2024 2:00 PM EDT Office [place] [address] Bernard Linares MD [facility] [place] [address] 09/07/2024 3:00 PM EST Office Visit Dermatology at [facility] [address] [place] [address] Jeremiah Preston MD [facility] DR Y[address] [place] [address] documented as of this encounter Visit Diagnoses Not on filedocumented in this encounter Care Teams Real Estate Officer Relationship Specialty Start Date End Date Veronica Campbell APRN [address] [place] [address] PCP - General Family Medicine 01/18/22 documented as of this encounter
--- OUTSIDE RECORDS SUMMARY | 2024-05-18 15:15 | XMS_ITS | Referral Summary ---
Author Organization [facility] Address [address] [place] [address] Care Team Providers Care Anchor Tack Puller Name Role Phone Gianluca Nassar MD Primary Care Provider Unavail able Active Problems Problem Noted Date Diagnosed Date Coronary atherosclerosis 12/25/2010 Hypertensive disorder 12/25/2010 Hyperlipidemia 12/25/2010 Diabetes mellitus ([facility]) 12/25/2010 Gout 12/25/2010 Memory loss 12/25/2010 Social History Tobacco Use Types Packs/Day Years Used Date Smoking Tobacco: Never Assessed Sex and Gender Information Value Date Recorded Sex Assigned at Not on file Gender Identity Not on file Sexual Orientation Not on file Plan of Treatment Not on file Care Teams Anchor Tack Puller Relationship Specialty Start Date End Date Gianluca Nassar MD PCP - General 12/23/10
--- OUTSIDE RECORDS SUMMARY | 2024-05-18 15:15 | XMS_ITS | Encounter Summary ---
Author Organization [facility] [place] [address] Care Team Providers Care Oven Stripper Name Role Phone Veronica Campbell CHRSITEL Primary Care Provider [phone] Encounter Details Date Type Department Care Team (Latest Contact Info) Description 12/01/2023 Travel Social History Tobacco Use Types Packs/Day [...] 2:00 PM EDT Office [place] [address] Bernard Linares MD [facility] [place] [address] 09/07/2024 3:00 PM EST Office Visit Dermatology at [facility] [address] [place] [address] Jeremiah Preston MD [facility] [place] [address] documented as of this encounter Visit Diagnoses Not on filedocumented in this encounter Care Teams Oven Stripper Relationship Specialty Start Date End Date Veronica Campbell APRN [address] [place] [address] PCP - General Family Medicine 01/18/22 documented as of this encounter
--- OUTSIDE RECORDS SUMMARY | 2024-05-18 15:15 | XMS_ITS | Encounter Summary ---
Author Organization [facility] Address [address] [place] [address] Care Team Providers Care Pot Sander Name Role Phone Gianluca Nassar MD Primary Care Provider Unavail able Encounter Details Date Type Department Care Team (Late st Contact Info) Description 06/02/2023 Lab Requisition [facility] Pathology & Laboratory Medicine - [address] [id number] Outr Resulting Lab, Provider Social History Tobacco [...] Procedure Name Priority Date/Time Associated Diagnosis Comments SPEP, INCLUDES QUANTITATION OF MONOCLONAL SPIKE PERFORMABLE Today 06/01/2023 15:00 EDT IMMUNOTYPING, SERUM Today 06/01/2023 1 5:00 EDT SPEP, INCLUDES QUANTITATION OF MONOCLONAL SPIKE Routine 06/01/2023 15:00 EDT PROTEIN, TOTAL Today 06/01/2023 15:00 EDT documented in this encounter Results * IMMUNOTYPING, SERUM (06/01/2023 15:00 EDT) Immunotyping, Serum Current Interpretation: Negative for monoclonal immunoglobulins . Interpreted by: Asim Lynn MD 06/04/2023 1227 06/04/2023 14:00 EDT [facility] Blood VENOUS BLOOD / Unknown 06/01/2023 15:00 EDT 06/02/2023 17:15 EDT Provider Outr Resulting Lab CHEMISTRY & BLOOD GAS ORDERABLES [facility] [address] [place] [address] * (ABNORMAL) SPEP, INCLUDES QUANTITATION OF MONOCLONAL SPIKE PERFORMABLE (06/01/2023 15:00 EDT) Albumin % 51.9(L) 55.8 - 66.1 % 06/04/2023 14:01 [facility] Albumin g/dL 3.9 3.6 - 5.2 g/dL 06/04/2023 14:01 [facility] Alpha-1 % 3.9 2.9 - 4.9 % 06/04/2023 14:01 [facility] Alpha-1 g/dL 0.30 0.15 - 0.40 g/dL 06/04/2023 14:01 [facility] Alpha-2 % 12.4(H) 7.1 - 11.8 % 06/04/2023 14:01 [facility] Alpha-2 g/dL 0.90 0.50 - 1.00 g/dL 06/04/2023 14:01 [facility] Beta % 14.2(H) 8.4 - 13.1 % 06/04/2023 14:01 [facility] Beta g/dL 1.10 0.60 - 1.20 g/dL 06/04/2023 14:01 [facility] Gamma % 17.6 11.1 - 18.8 % 06/04/2023 14:01 [facility] Gamma g/dL 1.30 0.60 - 1.60 g/dL 06/04/2023 14:01 [facility] SPEP Comment Suspicious pattern seen on protein electrophoresis, immunotyping added by reflex. 06/04/2023 14:01 [facility] Comment:See scanned/suppleme ntary report. Total Protein 7.5 6.3 - 8.2 g/dL 06/04/2023 14:01 EDT [facility] Blood VENOUS BLOOD / Unknown 06/01/2023 15:00 EDT 06/02/2023 17:15 EDT Provider Outr Resulting Lab CHEMISTRY & BLOOD GAS ORDERABLES Performing Organization Address [facility] de Phone Number [facility] [address] [place] [address] * PROTEIN, TOTAL (06/01/2023 15:00 EDT) Blood VENOUS BLOOD / Unknown 06/01/2023 15:00 EDT 06/02/2023 17:15 EDT Provider Outr Resulting Lab CHEMISTRY & BLOOD GAS ORDERABLES Performing Organization Address [facility] de Phone Number [facility] [address] [place] [address] documented in this encounter Visit Diagnoses Not on filedocumented in this encounter Care Teams Pot Sander Relationship Specialty Start Date End Date Gianluca Nassar MD PCP - General 12/23/10 documented as of this encounter
--- OUTSIDE RECORDS SUMMARY | 2024-05-18 15:15 | XMS_ITS | Encounter Summary ---
Author Organization [facility] [place] [address] Care Team Providers Care Blasting Contract Miner Name Role Phone Veronica Campbell CHRISTEL Primary Care Provider [phone] Encounter Details Date Type Department Care Team (Late st Contact Info) Description 12/27/2023 Orders [place] [address] Ale Cloud PA [facility] [place] [address] Pain of left thumb Social History Tobacco Use Types Packs/Day Years [...] 2:00 PM EDT Office [place] [address] Bernard Linares MD [facility] [place] [address] 09/07/2024 3:00 PM EST Office Visit Dermatology at [address] [place] [address] Jeremiah Preston MD [facility] [address] [place] [place] [address] documented as of this encounter Visit Diagnoses Diagnosis Pain of left thumb Pain in limb documented in this encounter Care Teams Blasting Contract Miner Relationship Specialty Start Date End Date Veronica Campbell APRN [address] [place] [address] PCP - General Family Medicine 01/18/22 documented as of this encounter
--- OUTSIDE RECORDS SUMMARY | 2024-05-18 15:15 | XMS_ITS | Encounter Summary ---
Author Organization [facility] [place] [address] Care Team Providers Care Flight Attendant/Inflight Supervisor Name Role Phone Veronica Campbell CHRISTEL Primary Care Provider [phone] Encounter Details Date Type Department Care Team (Latest Contact Info) Description 12/24/2023 Travel Social History Tobacco Use Types Packs/Day [...] 2:00 PM EDT Office Visit [place] [address] Bernard Linares MD [facility] [place] [address] 09/07/2024 3:00 PM EST Office Visit Dermatology at [facility] [address] [place] [address] Jeremiah Preston MD [facility] [place] [address] documented as of this encounter Visit Diagnoses Not on filedocumented in this encounter Care Teams Flight Attendant/Inflight Supervisor Relationship Specialty Start Date End Date Veronica Campbell APRN [address] [place] [address] PCP - General Family Medicine 01/18/22 documented as of this encounter
--- OUTSIDE RECORDS SUMMARY | 2024-05-18 15:15 | XMS_ITS | Encounter Summary ---
Author Organization [place] [address] Care Team Providers Care Register Repairer Name Role Phone Veronica Campbell CHRISTEL Primary Care Provider [phone] Encounter Details Date Type Department Care Team (Latest Contact Info) Description 01/26/2024 Travel Social History Tobacco Use Types Packs/Day [...] 2:00 PM EDT Office [place] [address] Bernard Linares MD [facility] [place] [address] 09/07/2024 3:00 PM EST Office Visit Dermatology at [facility] [address] [place] [address] Jeremiah Preston MD [facility] [place] [address] documented as of this encounter Visit Diagnoses Not on filedocumented in this encounter Care Teams Register Repairer Relationship Specialty Start Date End Date Veronica Campbell APRN [address] [place] [address] PCP - General Family Medicine 01/18/22 documented as of this encounter
--- OUTSIDE RECORDS SUMMARY | 2024-05-18 15:15 | XMS_ITS | Encounter Summary ---
Author Organization [facility] [place] [address] Care Team Providers Care Water Pipe Installer Name Role Phone Veronica Campbell CHRISTEL Primary Care Provider [phone] Encounter Details Date Type Department Care Team (Latest Contact Info) Description 01/28/2024 Travel Social History Tobacco Use Types Packs/Day [...] 2:00 PM EDT Office [place] [address] Bernard Linares MD [facility] [place] [address] 09/07/2024 3:00 PM EST Office Visit Dermatology at [facility] [address] [place] [address] Jeremiah Preston MD [facility] [place] [address] documented as of this encounter Visit Diagnoses Not on filedocumented in this encounter Care Teams Water Pipe Installer Relationship Specialty Start Date End Date Veronica Campbell APRN [address] [place] [address] PCP - General Family Medicine 01/18/22 documented as of this encounter
--- OUTSIDE RECORDS SUMMARY | 2024-05-18 15:15 | XMS_ITS | Encounter Summary ---
Author Organization [facility] Address [address] [place] [address] Care Team Providers Care Assistant To The President Name Role Phone Gianluca Nassar MD Primary Care Provider Unavail able Reason for Visit * Reason Comments Memory Loss Encounter Details Date Type Department Care Team (Late st Contact Info) Description 12/25/2010 9:00 EDT Office Visit [facility] Medical Psychology [facility] [address] [place] [address] Sabas Goldman, PhD [address] [facility] Medical Office Building, [address] [place] [id number] Memory loss (Primary Dx) Social History Tobacco Use Types Packs/Day Years Used Date Smoking Tobacco: Never Assessed Sex and Gender Information Value Date Recorded Sex Assigned at Not on file Gender Identity Not on file Sexual Orientation Not on file documented as of this encounter Consult Notes * Sabas Goldman, PhD - 01/01/2011 1305 EDT MEDICAL PSYCHOLOGY - [facility] CONSULTATION - 12/25/2010 NEUROPSYCHOLOGICAL EVALUATION Conrad Vera is a 55-year-old man who was seen for outpatient neuropsychological evaluation on 12/25/2010. He was referred by Dr. Gianluca Nassar and was seen as an outpatient at the [facility]. PERTINENT BACKGROUND INFORMATION: Mr Vera was born in [place] and grew up in [place], [place]. He is the third of five children in his family. He graduated from high school in 1970 and completed the 5-year [employer] apprenticeship program. 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 He currently resides in [place] with Joana Vera, his of 36 years. They have two adult children, a daughter (age 27), and a son (age 29). Mr. Vera has a reported neurologic history negative for learning disabilities, seizure disorder and migraines. He does have a history of concussion at about age 4, which required emergency room treatment only. His pertinent medical history includes hypertension, elevated lipids, diabetes and coronary artery disease. His family history is apparently negative for psychiatric disturbance and dementia. HISTORY OF PRESENTING ILLNESS: In early 2009, Mr Vera had two episodes of SOB plus chest pain. He had a stress test shortly thereafter, which he reportedly failed. He underwent cardiac catheterization in 11/2009 with the intent of stenting, but he was found to have too extensive coronary artery disease. He was subsequently admitted to [facility] and underwent CABG x3. He was a discharged home once medically stable and participated in outpatient cardiac rehabilitation in his local area. Mr Vera has not had a particularly good recovery from this procedure, as he seemingly was left with rather notable cognitive changes. He and his noted changes in his memory and other thinking skills shortly after the procedure. Although he has experienced some degree of reconvey over the last year, he has not been able to return to work in his full capacity. He was referred for this neuropsychological evaluation to help document his level of cognitive functioning and to assist in his ongoing treatment planning. CONSULTATION FINDINGS: Mr Vera arrived 15 minutes early for his appointment. He drove himself here and had no apparent difficulty finding this facility. His grooming and dress were acceptable. He was a willing participant during interview and testing, putting forth good effort at all times. He was quite self-deprecating, making many negative comments about his intellectual capacity and test performance. His affect was consistent with underlying anxiety, particularly initially, but he did become more at ease as the testing day progressed. Upon interview he provided the following information about his residual symptoms and problems. 1. Sensorimotor symptoms: He does not think that his balance has decreased any. He does believe that his overall strength is generally less since his cardiac surgery. Further, he believes his fine motor functioning is also diminished. His visual acuity has declined over the last 2 to 3 years. He does not think that his hearing has changed, but adds that his has told him that it has declined over time. He does have some decrease in tactile sensation in his fingertips and he is uncertain if this is associated to the procedure or an independent issue (e.g., diabetes). His sense of smell/taste was greatly changed, but has been returning recently. 2. Cognitive function: He reports that he has difficulties with orientation, particularly keeping the date straight. He has noted a number of problems with memory: (a) he has difficulties rememberingpreviously familiar procedures for his work, (b) he also has difficulty recalling recent events andrecent conversations, and (c) his prospective memory (memory for intended activities) is inconsistent. He believes that his remote memory remains reasonably intact. He has noted definite declines in his problem solving capacity, particularly as it relates to his work. He does not think that he has any difficulties with auditory comprehension, but has noted word finding problems when speaking. Last ly, he does not think that there has been any significant problems with reading or writing. 3. Psychological issues: He believes that he definitely has had changes in his emotional functioning, and adds that this is his 's biggest concern. He does not think that he is frankly depressed,but he does acknowledge being quite anxious and also becoming easily frustrated and angered. He adds that he has become socially withdrawn, and that his initiation in general is a little lower. He reports that his sleep is okay, but his energy has declined. His appetite is intact; following the procedure he did have a 40-pound weight loss and has gained 20 pounds of it back. He denies suicidal ideation or passive wishes for . He has not smoked for about 30 years. The alcohol consumption islimited to about one beer per evening. 4. Daily Activities: As previously indicated, he has not returned to his previous level of work since his CABG procedure. He did have three employees under his supervision, but now is down to having only one. He reports spending much of the day just puttering, which includes checking in with his at the convenience store and checking on their rental property. 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 He continues to drive. He does not have any apparent leisure activities. 5. Spousal Interview: Joana Vera () was interviewed to obtain additional information via telephone on 12/23/2010. She reported many of the same issues that her identified, including concerns about his change in temperament. She also agrees that he seems to have lost some of his mechanical abilities and general problem solving skills. Lastly, she confirms that he has become intolerant of social contact, often being socially abrupt with people in the community, including swearing at and being confrontational with persons he encounters. NEUROPSYCHOLOGICAL FINDINGS: Mr Vera was administered a comprehensive battery of neuropsychological tests, evaluating a broad-range of brain-behavior functions. His performance on these measures is reviewed below. 1. Symptom Validity: Two measures of cognitive symptom validity were performed in the normal range,suggesting that he was making good effort and that there was no enhancement of cognitive symptoms. 2. Orientation: He was fully oriented to self, date/time, place, and situation. 3. Attention and Concentration: He demonstrated difficulties on a number of attentional tasks, performing a number of them in the borderline impaired range. He had clear difficulty on tasks requiringauditory attention, but also was somewhat low on task requiring visual attention. 4. Sensorimotor Functions: He is right-hand dominant, for all fine motor tasks (writing, eating, grooming). 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 Visual scanning, performed during matching and sequencing task, was performed largely within normal limits for speed, but occasional errors were made. Auditory sensation was not formally evaluated, but his hearing did appearadequate for testing purposes. 5. Communication Skills: His conversational speech was intelligible and otherwise unremarkable. Object naming to confrontation was quite good. However, verbal fluency was impaired for letters (F-A-S), but was better preserved for categorical fluency (animals, fruits & vegetables). He was able to follow 1 and 2-step commands, but was inconsistent on 3-step commands. Auditory comprehension of sentences was performed correctly, but he did struggle with comprehension of short stories. Repetition of words and sentences was within normal limits. 6. Reasoning Skills: His verbal reasoning skills are slightly above average for both abstract reasoning and functional verbal problem solving. His visuospatial problem solving ranges from high average to low average. Mental calculations are performed in the low average range. Abstract conceptual problem solving was in the average range overall, but he did demonstrate perseveration on two of the fo ur subtests. 7. Memory Functions: Immediate recall of orally presented verbal material ranged from impaired (short stories) to high average (word list). Thirty-minute delayed recall revealed similar results, ranging from borderline impaired (short stories) to high average (word list). Immediate recall of visually-presented spatial material ranged from impaired (geometric pattern) to high average (complex drawings); 30-minute delayed recall of visually presented material was intact across all test forms. Forboth verbal and visual material, his delayed recognition memory was superior to his delayed recall memory. 8. Intellectual Skills: On the Allyson Adult Intelligence Scale - Fourth Edition (WAIS-IV), he obtained the following scaled scores: Verbal comprehension: 102; Perceptual reasoning 107; Working memory 77; Processing speed 100. He obtained a Full Scale Score of 98, which falls in the average range of overall intellectual abilities and at the 45th percentile. SUMMARY AND IMPRESSION: Mr. 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 He is about one year status post CABG x3. He has had a rather rough recovery from that procedure, and reportedly has had residual cognitive deficits and emotional changes. He hasnot yet been able to resume his normal level of vocational functioning. He was referred for neuropsychological evaluation to document his current level of cognitive function and to assist in his ongoing treatment planning. The current evaluation finds Mr. Vera to be functioning in the average range intellectually and in the high average to impaired neuropsychologically, depending on the particular assessed cognitive domain. Areas of relative strength identified upon testing include basic orientation, functional comm unication skills, verbal reasoning, and processing speed. Areas of relative weakness identified include attention, aspects of new learning/memory, aspects of abstract problem solving, and lastly verbal fluency. Psychologically, he does demonstrate evidence of adjustment disorder with mixed anxious and irritable mood. The overall configuration of test findings is consistent with reasonably spared cognitive function,except for focal problems in areas related mostly with attentional and memory functions. Although not definitively associated with his 2010 CABG procedure, an hypoxic event certainly would seemingly be the top diagnostic candidate. If so he should have a relatively fixed course, and further deterioration, other than age related changes, would not be expected. If in the future he or his believe that he is declining, than follow-up neuropsychological testing would be recommended to rule out the presence of a progressive cortical dementia. Lastly, Mr. Vera is certainly experiencing emotional adjustment issues significant enough to be negatively affecting his quality of life. He likely would benefit from a trial of an SSRI or other antidepressant. However, I am not certain he will be receptive to taking another medication at this point in time. DIAGNOSIS: 780.93 Memory Loss. TOTAL TIME: 6.0 hours (interview, test administration, scoring, report preparation). Electronically Signed by Sabas Goldman, PHD 01/01/2011 13:07 Sabas Goldman, PHD - Sabas Golmdan, PHD - MARY Job ID: SM Doc ID: [id number] Ext Doc ID: [id number] cc: Gianluca Nassar MD documented in this encounter Plan of Treatment Not on file documented as of this encounter Visit Diagnoses Diagnosis Memory loss- Primary documented in this encounter Care Teams Assistant To The President Relationship Specialty Start Date End Date Gianluca Nassar MD PCP - General 12/23/10 documented as of this encounter
--- OUTSIDE RECORDS SUMMARY | 2024-05-18 15:16 | XMS_ITS | Encounter Summary ---
Author Organization [facility] Address [facility] [place] [address] Care Team Providers Care Magnetic Resonance Imaging Director Name Role Phone Veronica Campbell CHRISTEL Primary Care Provider [phone] Encounter Details Date Type Department Care Team (Late st Contact Info) Description 11/10/2023 4:00 PM EST Office Visit Cardiology at [address] [phone] Pablito Hunt MD [facility] [address] Coronary artery disease due to lipid rich plaque Social History Tobacco Use Types Packs/Day Years [...] Sign Reading Time Taken Comments Blood Pressure 153/79 11/10/2023 3:55 PM EST Pulse 70 11/10/2023 3:55 PM EST Temperature - - Respiratory Rate - - Oxygen Saturation 99% 11/10/2023 3:55 PM EST Inhaled Oxygen Concentration - - Weight 97.1 kg (214 lb) 11/10/2023 3:55 PM EST Height 177.8 cm (5' 10) 11/10/2023 3:55 PM EST Body Mass Index 30.71 11/10/2023 3:55 PM EST documented in this encounter Progress Notes * Pablito Hunt MD - 11/10/2023 4:00 PM EST Images from the original note were [place] [address] [address] Referring Provider: Veronica Campbell APRN [address] [place] [address] Reason for Consultation / Chief Complaint: Dyspnea on exertion Past Cardiac History and Relevant Comorbidities: Coronary disease status post CABG (FOREMAN to LAD, SVG to RCA, SVG to OM) Diabetes Hyperlipidemia Obesity Hypertension HPI: Conrad Vera is a 68 y.o. male with history of the above cardiovascular issues who presentsfor evaluation of his cardiovascular disease. His swelling/anasarca has resolved at this time. He was started on low-dose hydrochlorothiazide, and over time, he noticed that all the edema seems to have disappeared. He does note that occasionallywhen he wakes up he has mild swelling in his legs, however this typically does not bother him anymore. The orthopnea and PND have also resolved. He is scheduled to undergo sinus surgery. He is able to easily run up a flight of stairs with no significant dyspnea or angina. With regards to his coronary disease, he is entirely asymptomatic and fully revascularized. He notes that his blood pressures are typically under reasonable control. No palpitations or syncope. 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 No regular exercise. Family History: Father of [place], mother's extended family with heart failure ALLERGIES: Allergies Allergen Reactions Red Blood Cells Antibodies-Difficult to Crossmatch DO NOT REMOVE Please contact the Blood Bank at [phone] for questions. Sulfamethoxazole Other (See Comments) Trimethoprim Other (See Comments) Colchicine Metronidazole CIS - Rash, CIS - [...] GI shutdown, CIS - causes GI shutdown MEDICATIONS: Current Outpatient Medications: tadalafiL (Cialis) 5 mg tablet, Take 5 mg by mouth as needed for Erectile Dysfunction., Disp: , Rfl: hydroCHLOROthiazide (Hydrodiuril) 12.5 mg tablet, Take 12.5 mg by mouth daily., Disp: , Rfl: gabapentin (Neurontin) 300 mg capsule, Take 300 mg by mouth., Disp: , Rfl: melatonin 5 mg tablet, .QHS, Disp: , Rfl: cetirizine (ZyrTEC) 10 mg tablet, Take 10 mg by mouth daily., Disp: , Rfl: glipiZIDE XL (Glucotrol XL) 2.5 mg ER 24 hr tablet, Take 2.5 mg by mouth., Disp: , Rfl: levothyroxine (Synthroid) 88 mcg tablet, Take 88 mcg by mouth daily., Disp: , Rfl: esomeprazole (NexIUM) [address] capsule, Take 60 mg by mouth every morning (before breakfast). One aday, Disp: , Rfl: FreeStyle Elma 2 [place] Misc, 1 each by Other route daily. Indications: diabetes, Disp: 1 each, Rfl: 0 FreeStyle Elma 2 Sensor Kit, 1 each by Other route daily. Indications: diabetes, Disp: 6 kit, Rfl:3 icosapent ethyL (Vascepa) 1 gram Capsule, Take 2 capsules by mouth 2 times daily., Disp: 360 capsule, Rfl: 3 atorvastatin (Lipitor) 20 mg Tablet, Take 1 tablet by mouth nightly., Disp: 90 tablet, Rfl: 3 nitroGLYcerin (Nitrostat) 0.4 mg Tablet, Sublingual, Place 0.4 mg under the tongue every 5 minutes as needed for Chest pain., Disp: , Rfl: aspirin EC 81 mg Tablet, Delayed Release (E.C.), Take 81 mg by mouth daily., Disp: , Rfl: allopurinol (ZYLOPRIM) 300 mg tablet, 300 mg, PO, Once daily, Disp: , Rfl: losartan (COZAAR) 50 mg tablet, 50 mg, PO, Once daily, Disp: , Rfl: metFORMIN (GLUCOPHAGE) 500 mg tablet, 500 MG = 1 Tablet(s), PO, Once daily, Disp: , Rfl: ferrous sulfate EC (FeroSul) 325 mg (65 mg iron) DR tablet, TAKE 1 TABLET BY MOUTH 3 TIMES PER WEEK, Disp: , Rfl: Dexcom G6 Hand Riveter Misc, 1 each by Misc.(Non-Drug; Combo Route) route continuous. Use as directed for continuous glucose monitoring. E11.9 (Patient not taking: Reported on 11/10/2023), Disp: 1 each, Rfl: 0 Dexcom G6 Sensor Device, 1 each by Misc.(Non-Drug; Combo Route) route continuous. Use as directed for continuous glucose monitoring. Change every 10 days. E11.9 (Patient not taking: Reported on 11/10/2023), Disp: 9 each, Rfl: 3 Dexcom G6 Transmitter Device, 1 each by Misc.(Non-Drug; Combo Route) route continuous. Use as directed for Continuous Glucose Monitoring. Change every 90 days. E11.9 (Patient not taking: Reported on 11/10/2023), Disp: 1 each, Rfl: 3 Trulicity 1.5 mg/0.5 mL Pen Injector, , Disp: , Rfl: ROS: As per HPI, otherwise the remainder of the ROS was either non-pertinent or negative. PHYSICAL EXAM: Vitals: 11/10/23 1555 BP: 153/79 Pulse: 70 SpO2: 99% Weight: 97.1 kg (214 lb) Height: 177.8 cm (5' 10) Constitutional: In general, alert and oriented X 3 Eyes: No scleral icterus or pale conjunctiva; no corneal arcus Ears, Nose, mouth, throat: no epistaxis; no visible thyromegaly Respiratory: Clear to auscultation bilaterally, Normal intensity of breath sounds with good air entry bilaterally GI: No abdominal tenderness to palpation; + bowel sounds; no rigidity or guarding, obese Cardiovascular: RRR. S1 and S2 are normal and unobscured. No S3 or S4 appreciated. There are no audible murmurs. Carotid upstroke is normal with no audible carotid bruits. JVP was flat at 5cm H2O above the RA. Skin: No visible rashes or bruises on arms or face Neuro: Non-focal. Moves all extremities without limitation. Gait is normal CN nerves not examined. Psych: Mood appropriate. Thought process is linear Extremity: RLE: 2+ LE edema, LLE: 2+ LE edema, RUE: 2+ radial pulse LUE: 2+ radial pulse DIAGNOSTIC TESTS (I have personally reviewed the following images/tracings and the following is my own assessment): ECG 04/2023: Normal sinus rhythm, inferior Q waves: Cardiac catheterization 02/2022: High-grade distal left main, ostial circumflex and ostial LAD disease in addition to high-grade RCA and RPDA disease. FOREMAN patent and perfuses the LAD territory. SVG to OM and SVG to RPDA were occluded. PCI performed of the left main into the circumflex artery with excellent result. Subsequent PCI performed of the RPDA, distal RCA and mid RCA lesions with excellentresult as well. Labs / Reports Reviewed: ECG 01/2022: Sinus rhythm with PVCs, prior inferior DC TTE 12/2021: Normal biventricular systolic function, EF 62%, normal valves, ascending aorta 3.7 cm Lipid Panel Lab Results Component Value Date CHLPL 100 02/25/2022 HDL 20 02/25/2022 CHOLHDL 5.0 02/25/2022 TRIG 420 02/25/2022 LDLCHOL Not Calculated 02/25/2022 LDLDIRECT 28 02/25/2022 A/P: Conrad Vera is a 68 y.o. male who presents for evaluation of the following cardiovascular issues: Edema/anasarca: Unclear etiology, symptoms resolved. Continue thiazide diuretic as per primary care. Coronary artery disease status post CABG and repeat revascularization: Revascularized at this time.Secondary prevention as below. Hypertension: Blood pressure slightly elevated in the office, recommend continuing to check at home. Will defer increasing antihypertensives prior to surgery. Hyperlipidemia: Continue Lipitor and icosapent ethyl at current doses. DM2: Management as per primary care physician Preoperative evaluation: Advised is reasonable for him to stop his aspirin 1 week prior to surgery.Given slight increase in bleeding, it is reasonable to hold his Vascepa prior to surgery for 1 weekas well. He is asymptomatic and able to easily perform more than 4 METS. May proceed to surgery with no further cardiovascular testing at this time. Recommendations: 1: Proceed to ENT surgery with no further cardiovascular testing at this time 2: Continue current therapy 3: Follow-up in 12 months Pablito Hunt MD 11/10/2023 4:09 PM documented in this encounter Plan of Treatment Upcoming Encounters Date Type Department Care Team (Late st Contact Info) Description 05/24/2024 2:00 PM EDT Office [place] [address] Bernard Linares MD [facility] [place] [address] 09/07/2024 3:00 PM EST Office Visit Dermatology at [address] [phone] Jeremiah Preston MD [facility] DR [facility] [address] documented as of this encounter Visit Diagnoses Diagnosis Coronary artery disease due to lipid rich plaque documented in this encounter Care Teams Magnetic Resonance Imaging Director Relationship Specialty Start Date End Date Veronica Campbell APRN [address] [place] [address] PCP - General Family Medicine 01/18/22 documented as of this encounter
--- OUTSIDE RECORDS SUMMARY | 2024-05-18 15:16 | XMS_ITS | Encounter Summary ---
Author Organization [facility] [place] [address] Care Team Providers Care Manager Athletics Name Role Phone AdrianVeronica CHRISTEL Primary Care Provider [phone] Reason for Referral * Consultation (Routine) - Closed Specialty Diagnoses / Procedures Referred By Jason garcia Referred To Contact Pre-Admission Testing Diagnoses Chronic pansinusitis Hypertrophy of nasal turbinates Deviated nasal septum Coronary artery disease due to lipid rich plaque Bernard Linares MD [facility] [place] [address] [facility] Pre [place]mit [place] [address] [place] [address] Referral ID Status Reason Start Date Expiration Date V isits Requested Visits Authorized [id number] Closed Consult Only 10/25/2023 10/24/2024 1 1 Reason for Visit * Reason Comments Sinusitis Noticed since end february * Consultation (Routine) - Closed Specialty Diagnoses / Procedures Referred By Jason garcia Referred To Contact Otolaryngology Diagnoses Chronic sinusitis, unspecified location Indra Man MD [address] [place] [address] [place] [address] Bernard Linares MD [facility] [place] [address] Referral ID Status Reason Start Date Expiration Date V isits Requested Visits Authorized [id number] Closed Consult, Test & Treat 10/14/2023 10/13/2024 1 1 Encounter Details Date Type Department Care Team (Late st Contact Info) Description 10/25/2023 11:00 AM EST Office [place] [address] Bernard Linares MD [facility] [place] [address] Chronic pansinusitis (Primary Dx); Hypertrophy of nasal turbinates; Deviated nasal septum; Coronary artery disease due to lipid rich plaque; Nasal obstruction Social History Tobacco Use Types Packs/Day Years [...] - Inhaled Oxygen Concentration - - Weight 97.1 kg (214 lb) 10/25/2023 10:47 AM EST Height 177.8 cm (5' 10) 10/25/2023 10:47 AM EST Body Mass Index 30.71 10/25/2023 10:47 AM EST documented in this encounter Patient Instructions * Patient Instructions* Bernard Linares MD - 10/25/2023 11:00 AM EST Images from the original note were not included. What is Functional Endoscopic Sinus Surgery (FESS)? One way FESS differs from traditional sinus surgery is that a thin rigid optical telescope, called an endoscope, is used in the nose to view the nasal cavity and sinuses. The endoscope allows for better visualization and magnification of diseased or problem areas. This endoscopic exam, along with CT scans, may reveal a problem that was not evident before. Another difference is that FESS focuses on treating the underlying cause of the problem. The ethmoid sinuses are usually opened. This permits direct visualization of the maxillary, frontal, and sphenoid sinuses and diseased or obstructive tissue can be removed if necessary. There is often less removal of normal tissue and surgery can frequently be performed on an outpatient basis without the needfor painful packing that was used in the past. Generally, there are not external scars, little swelling, and only mild discomfort. The goal of FESS is to open the sinuses more widely. Normally the openings to the sinuses are long,narrow bony channels covered with mucosa or the lining of the sinuses. If this lining swells from inflammation, the sinuses can become blocked and an infection can develop. FESS removes some of thesethin bony partitions and creates larger openings into the sinuses. After FESS, patients can still develop inflammation from allergies or viruses, but hopefully when the sinus lining swells, the sinuswill still remain open. This will permit easier treatment of subsequent exacerbations with more rapid resolution and less severe infections. Powered instrumentation can be useful during FESS to precisely remove polyps when present and otherdiseased tissue, while sparing the surrounding normal sinus lining and adjacent structures. The latest generation of hand instruments allows the surgeon to meticulously open the sinuses, while avoiding the grab and tear techniques of the past. Once the diseased tissue is removed and the inflammation subsides, the injured sinus lining often returns to a normal state with time. Although FESS is usually safe, complications can infrequently (1% or less) occur. The most common problem after surgery is a nose bleed. The sinuses are also adjacent to the brain and to the eye and in rare cases damage can occur to these structures. Like with any surgery, patients should have a clear understanding of the risks and benefits prior to undergoing a sinus procedure. When is computer-guided surgery used? Computer assisted surgical navigation is a relatively new tool used in select cases. These devices provide information on the anatomic location of instruments within the sinuses during surgery, and can also be used to perform 3D reconstructions that may be helpful to your surgeon. It is typically indicated for revision cases, nasal polyposis, or skull base tumors where normal surgical landmarks have been removed or altered. As with all equipment, image-guided systems can be wrong from time to time and surgeons cannot rely solely on the technology. They must correlate the image-guided information with their training, experience, and knowledge of the anatomy in order to avoid complications due to human or technical errors. Instructions Following Nasal Surgery What to Expect Drainage: You can expect some bloody mucus drainage from your nose for up to one week after surgery. This drainage will be greatest the first 3 days after surgery, during which time you may wish to keep a gauze bandage taped beneath your nose. Pain: Pain following nasal surgery is usually mild and readily controlled by over the counter medications. Sleeping with your head elevated (at least on 2 pillows) helps decrease pain and swelling. If pain is mild, Tylenol (acetaminophen) is often sufficient. You may use NSAIDs such as ibuprofen asa 2nd line in addition to acetaminophen, unless otherwise instructed by your doctor. Congestion: Don't be discouraged if you can't breath through your nose at first. It typically takes2 to 3 weeks before the inflammation and swelling inside the nose have subsided enough to provide agood nasal airway. Remember, your body is undergoing a gradual healing process. Nausea: Mild nausea and even brief vomiting is not unexpected after surgery. This can occur from a combination of many factors including anesthesia, postoperative medications, and swallowed blood. You should focus on remaining well-hydrated. If vomiting persists, please call your physician. Saline Irrigations Irrigations are a critical component of your postoperative care. Irrigate with a NeilMed rinse bottle (or equivalent) 3X/day for the first week after surgery, beginning on the day following your surgery. You can use the NeilMed packets or mix your own salt solution. Irrigations should be forceful enough to dislodge any crusts, but should not be uncomfortable or painful. Be sure to use warm, but not hot water for irrigations. Diet You can eat and drink whatever you would like after surgery. Focus first on remaining well-hydratedand incorporate foods after any nausea resolves. Begin with bland foods first and work your way back to exotic and/or spicy foods. Daily Activity It is best not to blow your nose for one week after surgery, as this may cause bleeding. If you feel the need to blow your nose, irrigate with warm saline instead. Heavy lifting, straining, and exercise that might cause nasal bleeding should be avoided during the first week. After one week you may increase your level of physical activity as you feel up to it. After two weeks, there are no limitations. Medications In most instances, you will have been given a prescription for an antibiotic course after surgery. Continue taking this antibiotic until complete. If you were put on a prednisone taper prior to surgery then complete this course as well. If you are normally on a nasal steroid spray you can restart this at any time after surgery. You will be given a prescription for a pain medication to take home. Directions will be on the bottles. Pain following nasal surgery is usually mild and readily controlled by medication. It is rare to require this medication beyond one week after surgery. What to Look For Please call the office or come to the Emergency Room should you develop: Brisk, new bleeding from the nose which doesn't stop after a few minutes of sitting up and squeezing your nostrils together Fever (greater than 101 degrees orally), chills or shakes Swelling of the eye or decreased vision Unrelenting headache Unrelenting nausea and vomiting Nasal Irrigations What is nasal irrigation and why do I need to do it? Although it may sound intimidating or uncomfortable, nasal irrigation really is as simple as running gentle saline solution through your nasal passages and sinuses. Most people find that in a short time they are comfortable irrigating their nose. The nasal and sinus cavities are normally able to clear mucus on their own through mucociliary transport. Sometimes swelling of the nose from allergy, irritation or infection can prevent this self-cleaning. In these cases, irrigations (nasal flushing or washing) are used until the lining of the nose and sinuses can recover and revert to normal. Nasalirrigation cleans the passages of your nose where particles get trapped, helping to wash them away. Nasal irrigation will also help stimulate cilia movement and healthy secretions while keeping the mucosa moist. How do I make the solution? Pre-made sale packets such as those sold by [employer] can be purchased at most drug stores, along with squeeze bottles. Packets can be mixed with sterile water from the pharmacy, distilled water or tapwater that has been boiled for 15 minutes. Alternatively, one can boil tap water for several minutes and place in a clean one liter (1 quart) container. We recommend using a container with a wide mouth to facilitate washing, and very importantly, thorough drying of the container. Add 2-3 teaspoons of table salt and 1 teaspoon of baking soda per quart. Let cool to a temperature that is luke warm, but not hot before use. How do I irrigate my nose? Irrigate each nostril with the contents of the irrigation bottle (240 mL = 8 oz.) divided equally between nostrils. Perform the irrigations while leaning forward over a sink so that the solution may drip or be spit out. Place the tip of the device at the opening of the nostril and gently irrigate the solution into the nose. We recommend using either a NeilMed squeeze bottle or a combination bulb-syring irrigation device that looks like a turkey baster. This can be taken apart for thorough periodic cleaning. Helpful tips: Breath through your mouth or hold your breath while flushing. Stop irrigating if you have to sneeze or cough. Do not speak or swallow while flushing. This could change the pressure in your ears/nose and cause infectious material to be drawn into the middle ear/sinuses. At first you may have an aversion to doing the irrigations, much like touching the eye when first wearing contact lenses. After a while this will subside and you will be able to tolerate irrigation quite easily. How do I clean the equipment? You should clean the irrigation device and solution container daily with soap and water so bacteriaare not reintroduced into the nasal cavity with each irrigation. Using two containers is optimal asone can be cleaned while the other is in use. Sterilization may be performed once a week with a weak solution of Betadine (available in pharmacies) or a diluted solution of bleach and water (1 part bleach to 100 parts water). Rinse thoroughly. Alternatively, you may choose to place the device into the microwave for 30 seconds to 1 minute to disinfect it. The bottle cannot be placed into boiling water as this will destroy the plastic material. Allow the device to completely air dry before using again. documented in this encounter Progress Notes * Bernard Linares MD - 10/25/2023 11:00 AM EST Images from the original note were not included. Rhinology, Endoscopic Sinus & Skull Base Surgery History of Present Illness: Dear Veronica Campbell, Thank you for referring Mr. Conrad Vera to me. The following is my evaluation and plan. If you have any questions or concerns, please do not hesitate to contact me. I thank you for allowing me toparticipate in the care. I look forward to working with you in the future. I had the pleasure of seeing Mr. Conrad Vera at your request for evaluation of chronic rhinosinusitis. Conrad is a 68 y.o. male with a history remarkable for CAD s/p CABG and more recent PCI, DM (last A1c 7.1% on 10/20/2023), chronic anemia and thrombocytopenia (platelet count 127k-156k over thelast year), and ongoing work-up with pulmonary medicine for dyspnea and mediastinal lymphadenopathywith recent bronchoscopy with BAL and lymph node biopsies on 07/29/2023 (pathology report notes reactive hyperplasia) without any microbial growth on cultures whose History of Present Illness includessymptoms of purulent rhinorrhea, nasal obstruction, sinus pain/pressure and altered sense of smell. Associated symptoms include long-standing history of chronic infections with a reported hospitalization 40 year ago for complications of acute sinus infection. By his description, a bedside procedurewas performed to drain fluid via needle, possible trephination or canine fossa puncture. Patient reports no history of invasive fungal infections, recurrent epistaxis, vision or diplopia -- however he does report an episode last year with visual symptoms intermittent in nature where his vision was like a kaleidoscope that lasted for 1 day; as well as intermittent floaters. This was around the time of his last coronary intervention. He is followed by Dr. Hunt in cardiology, last visit 2022. The patient is no longer on antiplatelet nor anticoagulation. Prior treatment have included prior courses of oral antibiotics (most recently 10 day course of doxycycline), consistent use of topical intranasal steroid spray and saline as needed. Prior allergy testing has not been performed, and there is unclear reported environmental allergies by history. There is not a history of asthma. Prior imaging includes outside CT sinus 10/07/2023 post-treatment scan showing complete opacification of bilateral ostiomeatal complex, right frontal and left sphenoid sinuses as well as partial opacification of bilateral maxillary, ethmoid and right sphenoid and left frontal sinuses. Soft tissue window does show some varying density of debris within the sinus without definite evidence of any fungal ball. Luciano-Amilcar 16. Patient Active Problem List Diagnosis Code CAD (coronary artery disease) I25.10 Hypertension I10 Gout M10.9 Peptic disease K30 Diabetes mellitus E11.9 Kidney stones N20.0 Obesity E66.9 Memory loss R41.3 Coronary artery disease involving coronary bypass graft I25.810 Diverticular disease K57.90 SOB (shortness of breath) R06.02 History reviewed. No pertinent past medical history. Past Surgical History: Procedure Laterality Date PRG CATH PLMT LEFT HEART CATH & ARTS W/INJ & ANGIO IMG S&I N/A 02/24/2022 CORONARY ANGIOGRAPHY; W LHC,POSSIBLE PCI performed by Pablito Hunt MD at [facility] [place] CATH LABS PRO [facility] [place] EBUS GUIDED SAMPL 3/> NODE STATION/STRUX N/A 07/29/2023 BRONCH, W ENDOBRONCHIAL ULTRASOUND (EBUS) GUIDED SAMPLING, 3+ NODES (WRVU 4.96) performed by Toro Gonzales MD at [facility] [place] ENDOSCOPY PRO COLONOSCOPY, DIAGNOSTIC N/A 09/02/2015 COLONOSCOPY, DIAGNOSTIC performed by Roula Saez MD at [facility] [place] ENDOSCOPY Current Outpatient Medications Medication Sig Dispense Refill ferrous sulfate EC (FeroSul) 325 mg (65 mg iron) DR tablet TAKE 1 TABLET BY MOUTH 3 TIMES PER WEEK gabapentin (Neurontin) 300 mg capsule Take 300 mg by mouth. melatonin 5 mg tablet .QHS cetirizine (ZyrTEC) 10 mg tablet Take 10 mg by mouth daily. glipiZIDE XL (Glucotrol XL) 2.5 mg ER 24 hr tablet Take 2.5 mg by mouth. levothyroxine (Synthroid) 88 mcg tablet Take 88 mcg by mouth daily. esomeprazole (NexIUM) [address] capsule Take 60 mg by mouth every morning (before breakfast). One a day Dexcom G6 Industrial Psychologist Misc 1 each by [facility]Non-Drug; Combo Route) route continuous. Use as directed for continuous glucose monitoring. E11.9 1 each 0 Dexcom G6 Sensor Device 1 each by Misc.(Non-Drug; Combo Route) route continuous. Use as directed for continuous glucose monitoring. Change every 10 days. E11.9 9 each 3 Dexcom G6 Transmitter Device 1 each by Misc.(Non-Drug; Combo Route) route continuous. Use as directed for Continuous Glucose Monitoring. Change every 90 days. E11.9 1 each 3 FreeStyle [address] Misc 1 each by Other route daily. Indications: diabetes 1 each 0 FreeStyle Elma 2 Sensor Kit 1 each by Other route daily. Indications: diabetes 6 kit 3 icosapent ethyL (Vascepa) 1 gram Capsule Take 2 capsules by mouth 2 times daily. 360 capsule 3 atorvastatin (Lipitor) 20 mg Tablet Take 1 tablet by mouth nightly. 90 tablet 3 Trulicity 1.5 mg/0.5 mL Pen Injector nitroGLYcerin (Nitrostat) 0.4 mg Tablet, Sublingual Place 0.4 mg under the tongue every 5 minutes as needed for Chest pain. aspirin EC 81 mg Tablet, Delayed Release (E.C.) Take 81 mg by mouth daily. allopurinol (ZYLOPRIM) 300 mg tablet 300 mg, PO, Once daily losartan (COZAAR) 50 mg tablet 50 mg, PO, Once daily metFORMIN (GLUCOPHAGE) 500 mg tablet 500 MG = 1 Tablet(s), PO, Once daily No current facility-administered medications for this visit. Allergies Allergen Reactions Red Blood Cells Antibodies-Difficult to Crossmatch DO NOT REMOVE Please contact the Blood Bank at [phone] for questions. Sulfamethoxazole Other (See Comments) Trimethoprim [...] shutdown, [employer] - causes GI shutdown Social History Tobacco Use Smoking status: Former Packs/day: 1.50 Years: 15.00 Additional pack years: 0.00 Total pack years: 22.50 Types: Cigarettes Quit date: 09/02/1985 Years since quittin.1 Smokeless tobacco: Never Substance Use Topics Alcohol use: Not Currently Comment: rare No family history on file. Review of Systems: Pertinent positives are discussed in the HPI. The ROS is otherwise negative for visual and eye problems, cardiovascular history, lung problems or shortness of breath, urinary problems, gastrointestinal problems, muscle and joint problems, skin diseases, neurological problems, psychological problems, thyroid or endocrine problems, lymphatic and hematologic problems, allergies, easy bruising/bleeding. Physical Exam: Constitutional: Well developed, well nourished, normal communicative ability, normal vocal quality,afebrile, vital signs as per nursing note. Eyes: Extraocular movements intact and normal, sclera and conjunctiva clear, no proptosis Head and Facial: Normocephalic, atraumatic, no suspicious lesions; normal facial muscle tone and symmetry; no sinus tenderness on palpation; salivary glands normal size, without masses Right Ear: Auricle without deformity/lesions. Left Ear: Auricle without deformity/lesions. Nose: Septum deviated to the left along mid-posterior septum. Inferior turbinates hypertrophied bilaterally. Oral Cavity: Normal tongue mobility, symmetrical palatal elevation with normal gag reflex, no dental pathology. Oropharynx: No lesions or masses, tongue base and tonsils unremarkable Neck: No masses, adenopathy or thyroid abnormalities TMJ: Non-tender, no crepitus. Respiratory: No stridor, wheezing, retractions or tachypnea. Musculoskeletal: Normal gross movement and strength of all extremities with no apparent paralysis or paresis. Integumentary: No skin lesions noted on face, neck or hands, no rashes or suspicious areas. Neurologic: Cranial nerves grossly intact. No nystagmus. No cerebellar signs. Psychiatric: Alert and oriented x 3. No signs of delusion or expressions of suicidal thoughts. Hematology/Lymphatics: No lymphadenopathy palpable throughout neck, face or salivary glands. Based upon the above history and physical exam, it was elected to perform endoscopy. Procedure: Nasal Endoscopy (CPT 46493) Indication: Symptoms suggestive of chronic rhinosinusitis. Due to limited visualization with anterior rhinoscopy that does not provide sufficient clinical information to establish a diagnosis, sinonasal endoscopy was performed using topical anesthetic and vasoconstrictors as needed. This is medically necessary to evaluate chronic sinonasal symptoms given suspicion of: nasal obstruction not due toseptal deviation that is refractory to medical therapy/chronic sinusitis; Endoscopy guided culturesfor recurrent sinusitis which has failed empiric antibiotic therapy or if empiric antibiotic therapy is limited by drug allergies; A repeat nasal endoscopy is medically necessary when the symptoms do not improve or worsen following medical/surgical treatment Surgeon: Bernard Linares MD Informed Consent: The procedure, risks and benefits were discussed with the patient and consent obtained to proceed. Procedure: Topical spray consisting of 1% oxymetazoline and 4% lidocaine was sprayed into the nasalcavity bilaterally. A rigid endoscope was then used to visualize each nasal cavity, utilizing inferior, central and superior passes. Patient tolerated well. Findings: Septum: Left along mid-posterior septum Interior nasal cavity: No significant edema, purulence or obstructive lesions bilaterally Inferior turbinates: Hypertrophied bilaterally Middle turbinates: Normal bilaterally The middle meatus, superior meatus, and sphenoethmoidal recess are without edema, polyps or purulence bilaterally Olfactory cleft: Patent bilaterally Visualized portion of nasopharynx unremarkable 10/25/2023 10:49 AM Q-NOSE 1. Nasal congestion or stuffiness fairly bad problem 2. Nasal blockage or obstruction moderate problem 3. Trouble breathing through my nose moderate problem 4. Trouble sleeping moderate problem 5. Unable to get enough air through my nose during exercise or exertion very mild problem Nose Scoring 45 (Moderate) 10/25/2023 10:50 AM Q-SCT During the past 2 weeks, how severe was your nasal obstruction? Moderate During the past 2 weeks, how severe was your nasal discharge? Moderate How much of the time did your sinus symptoms interfere with getting much done at work or home over the past 2 weeks? A little Have you had to take a recent treatment of oral steroid or antibiotics in the past 2 weeks for yoursinuses? Yes Sct Scoring 11 (partially controlled) CT screen shot complete opacification of right frontal sinus, partial opacification of left frontalsinus CT screen shot: Osteomeatal complex obstruction bilateral Kimball-Amilcar Score Scores Each Sinus 0 - 2, OMC 0 or 2 0 = no opacification, 1 = partial opacification, 2 = complete opacification Right Left Maxillary: 1 Maxillary: 1 Anterior Ethmoid: 1 Anterior Ethmoid: 1 Posterior Ethmoid: 1 Posterior Ethmoid: 1 Sphenoid: 1 Sphenoid: 2 Frontal: 2 Frontal: 1 Osteomeatal complex: 2 Osteomeatal complex: 2 Total (maximum = 24): 16 Assessment and Plan: Encounter Diagnoses Name Primary? Chronic pansinusitis Yes Hypertrophy of nasal turbinates Deviated nasal septum Coronary artery disease due to lipid rich plaque Nasal obstruction I discussed the pathophysiology of chronic rhinosinusitis with the patient, including medical management of the disease and recalcitrant nature of the symptoms. The patient has been very appropriate medically managed to date, specifically including prior courses of oral antibiotics, at least 4-6 weeks of intranasal steroids and irrigations, which were unsuccessful and currently has partially controlled symptoms with SCT score 11, NOSE score 45, Kimball-Amilcar score 16. We reviewed his medical co-morbidities which do present additional risk in consideration of surgery, including cardiac complications or complication with generally anesthesia. Although his platelet count has remained above 100k, I would advocate for re-checking his platelet count prior to any nasalsurgery. With respect to surgery for the treatment of chronic sinusitis, I reviewed that this is primarily a quality of life condition. Rare infections do occur specifically as it relates to complications of bacterial infections involving the orbit/eye or intracranial infection; and very rare opportunistic infections such as acute/chronic invasive fungal sinusitis in the setting of poorly controlled diabetes. Fortunately, there are no stigmata of sinus complications based on his report to date.I discussed the risks and benefits of medical therapy versus surgery, to include bleeding, infection, injury to the eye/visual loss/double vision, cerebrospinal fluid (CSF) leak, tearing, altered smell and taste, recurrent symptoms, need for further surgery and they wish to proceed. We discussed realistic expectations of surgery and the fact that surgery is not curative. He will require further preoperative evaluation for clearance and I would appreciate a chart review by our anesthesia team here at [facility] for any additional considerations prior to undergoing general anesthesia for a 150 minutesinus surgery. The patient verbalized understanding of these points and would like to proceed with surgical scheduling. Functional endoscopic sinus surgery is medically necessary in this case in the setting of chronic rhinosinusitis with persistent symptoms of bilateral pain, pressure and drainage (same side as CT abnormalities, see below) lasting longer than 12 weeks. Post-treatment CT scan of the sinuses shows the following abnormality for which surgery is indicated: Bilateral total ethmoidectomy including sphenoidotomy with removal of tissue (CPT 52012-03) Bilateral frontal sinusotomy (CPT 76032-73) Bilateral maxillary antrostomy with removal of tissue (CPT 38147-04) Septoplasty (CPT 74439) Bilateral outfracture of inferior turbinates (CPT 66436-93) Stereotactic image guidance (CPT 37254) Thank you very much for asking me to see this very pleasant patient. Sincerely, Bernard Linares MD Rhinology, Endoscopic Sinus & Skull Base Surgery Division of Otolaryngology - [place] [address] [facility] Over 50% of the total face to face and non-face to face time of 60 minutes were spent reviewing consultation documentation and/or pertinent imaging studies, counseling or coordinating care and discussing medical and/or surgical treatments as described above. documented in this encounter Plan of Treatment Upcoming Encounters Date Type Department Care Team (Late st Contact Info) Description 05/24/2024 2:00 PM EDT Office [place] [address] Bernard Linares MD [facility] [place] [address] 09/07/2024 3:00 PM EST Office Visit Dermatology at [address] [address] Jeremiah Preston MD [facility] [place] [address] Scheduled Referrals Name Type Priority Associated Diagnoses Order Schedule Anesthesia Pre-Operative Evaluation Referral Outpatient Referral Routine Chronic pansinusitis Hypertrophy of nasal turbinates Deviated nasal septum Coronary artery disease due to lipid rich plaque Ordered: 10/25/2023 documented as of this encounter Visit Diagnoses Diagnosis Chronic pansinusitis- Primary Other chronic sinusitis Hypertrophy of nasal turbinates Deviated nasal septum Coronary artery disease due to lipid rich plaque Nasal obstruction Other diseases of nasal cavity and sinuses documented in this encounter Care Teams Manager Athletics Relationship Specialty Start Date End Date Veronica Campbell APRN [address] [place] [address] PCP - General Family Medicine 01/18/22 documented as of this encounter
--- OUTSIDE RECORDS SUMMARY | 2024-05-18 15:16 | XMS_ITS | Encounter Summary ---
Author Organization [facility] Address [facility] [place] [address] Care Team Providers Care Binding Bench Worker Name Role Phone Veronica Campbell CHRISTEL Primary Care Provider [phone] Reason for Visit * Reason Comments Post Op Doing well, curious if he should stop the antihistamine, culture results, Encounter Details Date Type Department Care Team (Late st Contact Info) Description 12/01/2023 1:30 PM EST Office [place] [address] Grisel Calhoun PA [facility] [place] [place] [address] Deviated nasal septum; Chronic pansinusitis; S/P FESS (functional endoscopic sinus surgery); S/P nasal septoplasty Social History Tobacco Use Types Packs/Day Years [...] - Inhaled Oxygen Concentration - - Weight 96.2 kg (212 lb) 12/01/2023 1:13 PM EST Height 177.8 cm (5' 10) 12/01/2023 1:13 PM EST Body Mass Index 30.42 12/01/2023 1:13 PM EST documented in this encounter Progress Notes * Grisel Calhoun PA - 12/01/2023 1:30 PM EST Conrad Vera is a 68 y.o. male with CRSsNP who returns s/p ESS and septoplasty (11/26/23). 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 Intraoperative culture grew staph aureus-pro vided with ppx Augmentin day of procedure. Today, Conrad reports doing well overall. Reports mild nasal congestion R>L. Reports associated mild headaches. He reports having a slow intermittent ooze from the L nare but this has resolved with time he feels every day is a bit better, no obdluia epistaxis. Conrad reports no fevers, chills, nausea, emesis or loose stools. Confirmed appropriate postoperative course of antibiotics. No retained packing in place.He has been doing the saline rinses TID. He reports nasal pain upon palpation of the caudal septum. No other concerns at this time. ROS: No other symptoms experienced in constitutional, respiratory or ENT systems. Physical Exam: General: Calm, no acute distress, alert and oriented x4 Eyes: Pupils equal, round, reactive to light and accomodation. Extraocular muscles intact Neck: Flat, no lymphadenopathy Nose: Anterior rhinoscopy shows midline septum, inferior turbinates unremarkable Based upon the above history and physical exam, it was elected to perform endoscopy with debridement. Procedure: Bilateral Nasal Endoscopy with Debridement (CPT [address] modifier utilized in setting of postoperative debridement specifically for sinus surgery debridement, not for concurrent septoplasty procedure. Indication: Chronic rhinosinusitis s/p sinus surgery Surgeon: JACOB Beckett Informed Consent: The procedure, risks and benefits were discussed with the patient and consent obtained to proceed. Procedure: Topical spray consisting of 1% oxymetazoline and 4% lidocaine was sprayed into the nasalcavity. Pledgets soaked in 1% oxymetazoline and 4% lidocaine were placed into the nasal cavity as needed and sufficient time allowed for adequate anesthesia and decongestion. A rigid endoscope was then used to visualize each nasal cavity, utilizing inferior, central and superior passes. Crusts weredebrided from the middle meatus using alligator forceps and gentle suctioning. Patient tolerated well with minimal pain. Findings: Old blood and crusts were present in the middle meatus bilaterally. After removal, the maxillary, ethmoid, sphenoid and frontal sinuses were entered and patency confirmed, visibly open. No visible scarring. Landmarks preserved include orbital damon, skull base, bilateral inferior, middle and superior turbinates, and septum which is intact. Overall, the sinonasal cavity is healing well. 10/25/2023 10:50 AM Q-SCT During the past [...] yoursinuses? Yes Sct Scoring 11 (partially controlled) 10/25/2023 10:49 AM Q-NOSE 1. Nasal congestion or stuffiness fairly bad problem 2. Nasal blockage or obstruction moderate problem 3. Trouble breathing through my nose moderate problem 4. Trouble sleeping moderate problem 5. Unable to get enough air through my nose during exercise or exertion very mild problem Nose Scoring 45 (Moderate) Assessment and Plan: Mr.Thomas Alba Vera is a 68 y.o. male with CRSsNP s/p ESS and septoplasty. Doing well post-operatively. Encounter Diagnoses Name Primary? Deviated nasal septum Chronic pansinusitis S/P FESS (functional endoscopic sinus surgery) S/P nasal septoplasty I reviewed the pathophysiology of chronic rhinosinusitis with the patient, including medical management of the disease and recalcitrant nature of the symptoms. Plan to perform nasal rinses BID. RTC 3months with Dr. Linares. Instructed to call in the interim with questions or concerns. Thank you very much for asking me to see this very pleasant patient. Sincerely, JACOB Beckett Rhinology, Endoscopic Sinus & Skull Base Surgery Division of Otolaryngology - [place] [address] [facility] documented in this encounter Plan of Treatment Upcoming Encounters Date Type Department Care Team (Late st Contact Info) Description 05/24/2024 2:00 PM EDT Office [place] [address] Bernard Linares MD [facility] [place] [address] 09/07/2024 3:00 PM EST Office Visit Dermatology at [facility] [address] [place] [address] Jeremiah Preston MD [facility] [address] [place] [address] documented as of this encounter Visit Diagnoses Diagnosis Deviated nasal septum Chronic pansinusitis Other chronic sinusitis S/P FESS (functional endoscopic sinus surgery) Other postprocedural status S/P nasal septoplasty Other postprocedural status documented in this encounter Care Teams Binding Bench Worker Relationship Specialty Start Date End Date Veronica Campbell APRN [address] [place] [address] PCP - General Family Medicine 01/18/22 documented as of this encounter
--- OUTSIDE RECORDS SUMMARY | 2024-05-18 15:16 | XMS_ITS | Encounter Summary ---
Author Organization [facility] [place] [address] [place] [address] Care Team Providers Care Communication And Outreach Manager Name Role Phone Veronica Campbell CHRISTEL Primary Care Provider [phone] Encounter Details Date Type Department Care Team (Late st Contact Info) Description 08/10/2023 Telephone [place] [address] Ashley Van Social History Tobacco Use Types Packs/Day Years [...] 2:00 PM EDT Office Visit [place] [phone] Bernard Linares MD [facility] [place] [address] 09/07/2024 3:00 PM EST Office Visit Dermatology at [facility] [address] [place] [address] Jeremiah Preston MD [facility] [address] [place] [address] documented as of this encounter Visit Diagnoses Not on filedocumented in this encounter Care Teams Communication And Outreach Manager Relationship Specialty Start Date End Date Veronica Campbell APRN [address] [place] [address] PCP - General Family Medicine 01/18/22 documented as of this encounter
--- OUTSIDE RECORDS SUMMARY | 2024-05-18 15:16 | XMS_ITS | Encounter Summary ---
[place] [address] Care Team Providers Care Brick Stacker Name Role Phone Veronica Campbell APRN Primary Care Provider [phone] Encounter Details Date Type Department Care Team (Late st Contact Info) Description 10/14/2023 Telephone [place] [address] Lelo Bajwa Social History Tobacco Use Types Packs/Day Years [...] encounter Miscellaneous Notes * Telephone Encounter - Lelo Bajwa - 10/14/2023 10:35 AM EST Patients spouse called to schedule for referral. Appt scheduled spouse aware of appt day/time location Patient has seen ENT for this notes in chart Patient has had CT scan in chart documented in this encounter Plan of Treatment Upcoming Encounters Date Type Department Care Team (Late st Contact Info) Description 05/24/2024 2:00 PM EDT Office Visit [place] [address] Bernard Linares MD [facility] [place] [address] 09/07/2024 3:00 PM EST Office Visit Dermatology at [facility] [address] [place] [address] Jeremiah Preston MD [facility] [address] [place] [address] documented as of this encounter Visit Diagnoses Not on filedocumented in this encounter Care Teams Brick Stacker Relationship Specialty Start Date End Date Veronica Campbell APRN [address] [place] [address] PCP - General Family Medicine 01/18/22 documented as of this encounter
--- OUTSIDE RECORDS SUMMARY | 2024-05-18 15:16 | XMS_ITS | Encounter Summary ---
Author Organization Formerly [facility] [place] [address] Care Team Providers Care Salvager Name Role Phone Veronica Campbell CHRISTEL Primary Care Provider [phone] Encounter Details Date Type Department Care Team (Late st Contact Info) Description 07/29/2023 1:00 PM EDT - 07/29/2023 2:10 PM EDT Surgery [place] [address] BackerToro MD [facility] [place] [address] BRONCH, W ENDOBRONCHIAL ULTRASOUND (EBUS) GUIDED SAMPLING, 3+ NODES (WRVU 4.96) Social History Tobacco Use Types Packs/Day Years [...] Sign Reading Time Taken Comments Blood Pressure 123/83 07/29/2023 2:10 PM EDT Pulse 70 07/29/2023 12:09 PM EDT Temperature 36.8 ??C (98.2 ??F) 07/29/2023 12:09 PM E DT Respiratory Rate 16 07/29/2023 2:10 PM EDT Oxygen Saturation 96% 07/29/2023 2:10 PM EDT Inhaled Oxygen Concentration - - Weight - - Height - - Body Mass Index - - documented in this encounter Discharge Instructions * Discharge Instructions* Yoli Quintanilla RN - 07/29/2023 1:52 PM EDT Images from the original note were not included. Bronchoscopy: What to Expect at Home Your Recovery Bronchoscopy lets your doctor look at your airway through a tube called a bronchoscope. Afterward, you may feel tired for 1 or 2 days. Your mouth may feel very dry for several hours after the procedure. You may also have a sore throat and a hoarse voice for a few days. Sucking on throat lozenges orgargling with warm salt water may help soothe your sore throat. If a sample of tissue (biopsy) was taken, you may spit up a small amount of blood or have bloody saliva. This is normal. This care sheet gives you a general idea about how long it will take for you to recover. But each person recovers at a different pace. Follow the steps below to get better as quickly as possible. How can you care for yourself at home? Activity Rest when you feel tired. Getting enough sleep will help you recover. Avoid strenuous activities, such as bicycle riding, jogging, weight lifting, or aerobic exercise, until your doctor says it is okay. Diet You can eat your normal diet. If your stomach is upset, try bland, low-fat foods like plain rice, broiled chicken, toast, and yogurt. If it is painful to swallow, start out with cold drinks, flavored ice pops, and ice cream. Next, try soft foods like pudding, yogurt, canned or cooked fruit, scrambled eggs, and mashed potatoes. Avoid eating hard or scratchy foods like chips or raw vegetables. Avoid orange or tomato juice and otheracidic foods that can sting the throat. Drink plenty of fluids to avoid becoming dehydrated (unless your doctor tells you not to). Do not drink alcohol. Medicines Take pain medicines exactly as directed. If the doctor gave you a prescription medicine for pain, take it as prescribed. If you are not taking a prescription pain medicine, ask your doctor if you can take an wzdt-tdd-aedthte medicine. If you think your pain medicine is making you sick to your stomach: Take your medicine after meals (unless your doctor has told you not to). Ask your doctor for a different pain medicine. If your doctor prescribed antibiotics, take them as directed. Do not stop taking them just because you feel better. You need to take the full course of antibiotics. Follow-up care is a lopez part of your treatment and safety. Be sure to make and go to all appointments, and call your doctor if you are having problems. It's also a good idea to know your test resultsand keep a list of the medicines you take. Other instructions For your safety, do not drive or operate machinery until the medicine wears off and you can think clearly. Your doctor may tell you not to drive or operate machinery until the day after your test. Do not sign legal documents or make major decisions until the medicine wears off and you can think clearly. The anesthesia can make it hard for you to fully understand what you are agreeing to. Additional Information for Sedation Patients For patients who received sedation: You may have received medications before and/or during your procedure which effects your judgement and reaction time. Do not drive, operate machinery, drink alcoholic beverages or make important decisions for 24 hours. Be careful on stairs as you may be unsteady on your feet. Do not smoke if you are alone. IV site: Slight redness or tenderness is normal, you can use a warm compress if you would like. If tenderness and/or redness increase or if foul drainage occurs, please contact your Doctor. Please call [phone] before 8pm Mon-Fri with problems, questions or concerns. If you call after 8pm or on weekends, call the Hospital at [phone] and ask to speak to the Software Engineer Intern carbon sequestration plant engineer and the paper gluing operator will contact that person for you. When should you call for help? Call [phone] anytime you think you may need emergency care. For example, call if: You passed out (lost consciousness). You have sudden chest pain and shortness of breath. You cough up large amounts of bright red blood. You have severe pain in your chest. You have severe trouble breathing. Call your doctor now or seek immediate medical care if: You cough up more than a few tablespoons of blood. You have pain that does not get better after you take pain medicine. You have a fever over 100??F. You still sound hoarse after a few days. You have bubbles under the skin around the collarbone. These may crackle and pop when you press on them. Watch closely for changes in your health, and be sure to contact your doctor if you have any problems. Where can you learn more? [facility] View your After Visit Summary and more online at [email or web address] If you would like to provide feedback about your hospital experience, please call the Office of Patient and Family Relations at . If you have received this After Visit Summary in error, please immediately return it in person to the department, or notify the [facility] Privacy Office by calling toll free at between the hours of 8AM and 5PM to arrange for our retrieval of the documents at no cost to you. Content Version: 12.2 ?? [id number] [employer]. Care instructions adapted under license by [facility]. If you have questions about a medical condition or this instruction, always ask your healthcare professional. [employer] disclaims any warranty or liability for your use of this information. documented in this encounter Medications at Time of Discharge Medication Sig Dispensed Refills Start Date End Date gabapentin (Neurontin) 300 mg capsule Take 300 [...] by mouth daily. 07/16/2023 FreeStyle Elma 2 [place] MiscIndications:diabet es mellitus 1 each by Other route daily. Indications: diabetes 1 each 08/03/2022 FreeStyle Elma 2 Sensor KitIndications:diabete s mellitus 1 each by Other route daily. Indications: diabetes 6 kit 3 08/03/2022 icosapent ethyL (Vascepa) 1 gram CapsuleIndications:Cor onary artery disease, unspecified vessel or lesion type, unspecified whether angina present, unspecified whether [employer] or transplanted heart Take 2 capsules by [...] mouth 2 times daily (with meals). 12/12/2010 Dexcom G6 Trim Installer Misc 1 each by [facility]Non-Drug; Combo Route) route continuous. Use as directed for continuous glucose monitoring. E11.9 1 each 08/06/2022 11/23/2023 Dexcom G6 Sensor Device 1 each by [facility].(Non-Drug; Combo Route) route continuous. Use as directed for continuous glucose monitoring. Change every 10 days. E11.9 9 each 3 08/06/2022 11/23/2023 Dexcom G6 Transmitter Device 1 each by Mis.(Non-Drug; Combo Route) route continuous. Use as directed for Continuous Glucose Monitoring. Change every 90 days. E11.9 1 each 3 08/06/2022 11/23/2023 Trulicity 1.5 mg/0.5 mL Pen Injector 12/07/2021 11/18/2023 documented as of this encounter H&P Notes * Toro Gonzales MD - 07/28/2023 5:34 PM EDT Interventional Pulmonology Pre-Procedure History & Physical SECTION OF PULMONARY/CRITICAL CARE MEDICIE Procedure: Bronchoscopy, endobronchial ultrasound (EBUS) and biopsy Reason for procedure: Lymphadenopathy See last note from Dr. Velazquez PHYSICAL EXAM: To be reassessed at time of procedure Assessment & Plan: Consent to be signed Proceed with procedure as stated Toro Gonzales MD, 07/28/2023, 5:34 PM Interventional Pulmonology Section of Pulmonary & Critical Care Pager: [phone] documented in this encounter Miscellaneous Notes * Op Note - Toro Gonzales MD - 07/29/2023 1:04 PM EDT Images from the original note were not included. INTERVENTIONAL PULMONOLOGY PROCEDURE NOTE SECTION OF PULMONARY & CRITICAL CARE MEDICINE Patient Name: Conrad Vera Patient Patient : 1955 Procedure Date: 07/29/2023 Procedure(s): A flexible bronchoscopy Airway examination EBUS-TBNA (3 sites(s)) EBUS guided mediastinal cryobiopsies (1 site) Bronchoalveolar lavage Therapeutic suctioning Procedure Location: Endoscopy unit Indication: Lymphadenopathy Attending(s) of Record: Toro Gonzales MD Others Present: None Medications: General Anesthesia - See anesthesia flowsheet for details Sedation Time: Per anesthesia care provider Time Out: Performed The patient's medical record has been reviewed. The indication for the procedure was reviewed. The necessary history and physical examination was performed and reviewed. The risks, benefits and alternatives of the procedure were discussed with the patient in detail and he had the opportunity to askquestions. I discussed in particular the potential minor and major complications. All questions were answered to the best of my ability. Informed consent was obtained. The proposed procedure and the patient's identification were verified prior to the procedure by the physician and the nurse. After clinical evaluation and reviewing the indication, risks, alternatives, and benefits of the procedure the patient was deemed to be in satisfactory condition to undergo the procedure. Procedure Descriptions: Airway Examination: An Olympus H190 flexible bronchoscope was used for the procedure. The bronchoscope was inserted through the endotracheal tube and inspection undertaken. A complete airway examination was performed from the distal trachea to the subsegmental level in each lobe of both lungs. Pertinent findings include normal bronchial anatomy, no endobronchial lesions, and moderate thin/clear secretions bilaterally. Bronchoalveolar Lavage (11894): The bronchoscope was wedged into the superior segment of the left lower lobe (LB6). A total of 100 mL of saline was instilled and a total of 25 mL of cellular fluid was aspirated. This was sent for analysis. EBUS-TBNA (3 sites): The Olympus EBUS ([id number]) scope was inserted, lymph node inspection undertaken and transbronchial needle aspiration obtained from the following sites using the Olympus ViziShot-2 FLEX 19 gauge TBNA needle: 1) Station 11Rs(superior) (>10 mm ) with 3 passes obtained with MINGO absent. 2) Station 4R (>10 mm ) with 3 passes obtained with MINGO absent. 3) Station 7 (>10 mm ) with 5 passes (including 1 pass for flow) obtained with MINGO absent. Abundant material was collected in 10% neutral buffered formalin and PhysioSol and sent for cytology review and flow cytometry. Note, all mediastinal, hilar, lobar and segmental stations are evaluated during the procedure andthose not listed were not biopsied due to small lymph node diameter, positive MINGO on higher george staging, alternative diagnosis or inability to continue with the procedure. Specifically, Station 11L was <5 mm and Station 4L was noted to be enlarged but not sampled. EBUS-Transbronchial Core Biopsies (1 sites): The Olympus EBUS ([id number]) scope was inserted and inspection undertaken. The station Station 7 lymph node was identified by ultrasound. The Olympus ViziShot-2 FLEX 19 gauge TBNA needle need was inserted and a puncture track was made across the airway wall into the target of interest. The needle was removed while maintaining the EBUS scope in place and the ERBE 1.1 mm flexible single-use cryoprobe was inserted. A total of 5 biopsies were obtained with MINGO absent. Abundant material was collected in 10% neutral buffered formalin and sent for pathology. No significant bleeding or other intra-procedure complication encountered. The nature of these biopsies were more complex and difficult to perform as compared to typical EBUS-FNA sampling and resulted in increased procedural time to complete (modifier 22). Therapeutic Suctioning (60015): A significant portion of operative time was spent clearing out the airway of debris, blood and secretions prior to or during the intervention. Any disposable equipment was visually inspected and deemed to be intact immediately post procedure. Estimated Blood Loss: <5 mL Complications: None Relevant Pictures Mediastinal cryobiopsies station 7 Recommendations: Successful flexible bronchoscopy, EBUS-TBNA (3 site(s)), mediastinal cryobiopsies, and BAL Await pending results in the next 3-5 business days Follow-up with referring provider as previously arranged Toro Gonzales MD, 07/29/2023, 1:37 PM Interventional Pulmonology Section of Pulmonary & Critical Care Pager: [phone] documented in this encounter Plan of Treatment Upcoming Encounters Date Type Department Care Team (Late st Contact Info) Description 05/24/2024 2:00 PM EDT Office Visit [place] [address] Bernard Linares MD [facility] [place] [address] 09/07/2024 3:00 PM EST Office Visit Dermatology at [address] [place] [address] Jeremiah Preston MD [facility] [place] [address] documented as of this encounter Procedures Procedure Name Priority Date/Time Associated Diagnosis Comments B-CELL CLONALITY STUDIES Routine 023 5:11 PM EST POCT GLUCOSE Routine 07/29/2023 2:16 PM EDT NON-FISH HATCHERY SUPERVISOR FINAL REPORT Routine 07/29/2023 1:37 PM EDT NON-FISH HATCHERY SUPERVISOR FINAL REPORT Routine 07/29/2023 1:37 PM EDT NON-FISH HATCHERY SUPERVISOR FINAL REPORT Routine 07/29/2023 1:37 PM EDT CYTOPATHOLOGY NON-GYNECOLOGICAL Routine 07/29/2023 1:37 PM EDT CYTOPATHOLOGY NON-GYNECOLOGICAL Routine 07/29/2023 1:37 PM EDT CYTOPATHOLOGY NON-GYNECOLOGICAL Routine 07/29/2023 1:37 PM EDT SPECIMEN TO PATHOLOGY Routine 07/29/2023 1:36 PM EDT IMMUNOPHENOTYPING FLOW CYTOMETRY (BLOOD) Routine 07/29/2023 1:35 PM EDT FLOW CYTOMETRY REPORT Routine 07/29/2023 1:35 PM EDT CELL COUNT, BRONCHOALVEOLAR LAVAGE Routine 07/29/2023 1:10 PM EDT IMMUNOPHENOTYPING FLOW CYTOMETRY (BLOOD) Routine 07/29/2023 1:10 PM EDT NON-FISH HATCHERY SUPERVISOR FINAL REPORT Routine 07/29/2023 1:10 PM EDT FLOW CYTOMETRY REPORT Routine 07/29/2023 1:10 PM EDT SURGICAL PATHOLOGY REPORT Routine 2022 1:10 PM EDT HC FUNGUS CULTURE, MISC SOURCE Routine 07/29/2023 1:07 PM EDT AFB CULTURE Routine 07/29/2023 1:07 PM EDT FUNGAL STAIN Routine 07/29/2023 1:07 PM EDT LOWER RESPIRATORY CULTURE Routine 2022 1:07 PM EDT FUNGUS CULTURE Routine 07/29/2023 1:07 PM EDT CYTOPATHOLOGY NON-GYNECOLOGICAL Routine 07/29/2023 1:06 PM EDT [facility] Ebus Guided Sampl 3/> Node Station/Strux ([id number]) 07/29/2023 12:51 PM EDT Lymphadenopathy POCT GLUCOSE Routine 07/29/2023 12:25 PM EDT documented in this encounter Results * B-cell clonality studies (08/02/2023 5:11 PM EST) B-cell Result B-cell polyclonal [facility] B-cell Interp B-cell Receptor Clonality Assay INDICATION FOR STUDY: ??Concern for B-cell neoplasm ANALYSIS: ??Sequence analysis of IGH FR1/FR2/FR3 regions for rearrangements SPECIMEN: ??[id number], A1 RESULTS: ??NEGATIVE sequencing results for clonality in IGH. INTERPRETATION: No clonal IGH sequences were identified in this study. METHODS: Genomic DNA was extracted from whole blood or bone marrow, and analyzed with the [employer] IGH (FR1, FR2, & FR3) Assays. DNA is amplified using a multiplex primer mix that targets one of the conserved framework regions within the VH and JH regions on the IGH gene. The resultant amplicons are purified then sequenced on the Illumina MiSeq system. Evaluation of the sequencing data, along with positive and negative controls for appropriate reactivity, is then performed. LIMITATIONS AND DISCLAIMERS: This assay will not identify 100% of clonal cell populations. Somatic hypermutation affecting the involved VH gene segment may alter primer binding and impede DNA amplification. All PCR-based assays are subject to interference by degradation of DNA, presence of PCR inhibitors that may be present in the analyzed sample, primer-template non-homology or fusion heterogeneity. Small clonal or oligoclonal populations may occasionally be detected in reactive conditions. Additionally, B-cell receptor rearrangements cannot be used alone to determine B-cell versus T-cell lineage because of the well-known phenomenon of lineage cross-over. These results should not be used in isolation to diagnose a neoplastic lymphoproliferatio n, and should be interpreted in the context of available clinical history, imaging studies, biopsy findings, and other ancillary laboratory test results that may be available. This test has been approved by the U.S. Food and Drug Administration. Performance characteristics have been verified by the [facility] ([facility]) Laboratory at [facility]. [facility] Tissue 08/02/2023 5:11 PM EST 08/04/2023 1:59 PM EST Narrative Resulting Agency Comment Spec In Lab Toro Gonzales MD MOLECULAR ORDERABLES Performing Organization Address City/[facility]/ZIP Co de Phone Number [facility] [place] [address] * POCT Glucose (07/29/2023 2:16 PM EDT) Glucose, POC 126 65 - 199 mg/dL [facility] Comment: Supplemental ranges: <140 mg/dL before meals <180 mg/dL all other times of the day Blood 07/29/2023 2:16 PM EDT 07/29/2023 2:16 PM EDT Toro Gonzales MD POINT OF CARE TEST O RDERABLES Performing Organization Address [facility] Co de Phone Number [facility] [place] [address] * Non-Esl Instructor Final Report (07/29/2023 1:37 PM EDT) Diagnosis Discussion [id number] ? Location: 4T; [facility]; A The signing pathologist has (i) examined the relevant preparation(s) for the specimen(s) and (ii) rendered or confirmed the diagnosis(es). . ? Non-Esl Instructor Final DIAGNOSIS See Discussion Electronically signed by: ?Tacho FREEMAN Denilson X Verified: ??08/04/2023 19:36 ??Pathologist Performed at: ??-[facility] Dept. of Pathology, [place] [address] Electrician Technician: Filipe Hoang MD, FCAP, ??CLIA Certificate: [id number] DISCUSSION Lymph node: station 4R (EBUS-guided FNA) - - Reactive follicular hyperplasia (see Comment) Comment: Sections show follicles with well-formed germinal centers and intact mantle cuffs. Immunostains show an intact immunoarchitechture (see Immunohistochemistry Studies). IMMUNOHISTOCHEMISTRY STUDIES Block: ?A1 Fixative: ?? Formalin ANTIBODY ?RESULT/COMMENT CD3 ? Stains parafollicular T-cells CD20 ?Stains B-cells with a follicular distribution BCL6 ?Stains germinal centers BCL2 ?Negative in germinal centers, stains T-cells CD10 ?Stains germinal centers CD5 ? Negative in B-cells, stains T-cells Cyclin D1 ?? Negative Ki-67 ? Shows appropriate staining of germinal centers The immunoperoxidase stains reported above were developed by the clinical laboratory at [facility]. Antibody specificities have been verified on tissues with known staining performance characteristics. These stains have not been cleared or approved by the U.S. Food and Drug Administration, however such approval is not required for analyte-specific reagents of this type. Appropriate positive and negative controls (Cell block was examined.) CLINICAL INFORMATION Specimen Source : Lymph node: station 4R (EBUS-guided FNA) Pertinent Clinical Data and Significant Therapy: 68 yr old male bronchoscopy/EBUS for lymphadenopathy Clinical Impression : Possible lymphoma vs sarcoid Pertinent Radiologic Findings ??: (not provided) Gross Description: . CLINICAL INFORMATION Received ??in Formalin approximately 25 mL total volume of ?? cloudy, bloody fluid, with clots. Total Preparation: Cell Block 1. 08/04/2023 7:36 PM [facility] LYMPH NODE SPECIMEN / Unknown 07/29/2023 1:37 PM EDT 07/29/2023 1:37 PM EDT Toro Gonzales MD PATHOLOGY/CYTOLOGY O RDERABLES [facility] [place] [address] [facility] [place] [address] * Non-Esl Instructor Final Report (07/29/2023 1:37 PM EDT) Diagnosis Discussion [id number] ? Location: 4T; [facility]; A The signing pathologist has (i) examined the relevant preparation(s) for the specimen(s) and (ii) rendered or confirmed the diagnosis(es). . ? Non-Esl Instructor Final DIAGNOSIS See Discussion Electronically signed by: ?Tacho FREEMAN Denilson Watson Verified: ??08/02/2023 11:35 ??Pathologist Performed at: ??-[facility] Dept. of Pathology, [place] [address] Electrician Technician: Filipe Hoang MD, FCAP, ??CLIA Certificate: [id number] DISCUSSION Lymph node: station 11R (EBUS-guided FNA) - - Lymphoid tissue without overt evidence of lymphoma (see Comment). Comment: Fragments of lymphoid tissue and cartilage present; more extensive testing done of more adequate samples (see [id number] and [id number]). (Cell block was examined.) CLINICAL INFORMATION Specimen Source : Lymph node: station 11R (EBUS-guided FNA) Pertinent Clinical Data and Significant Therapy: 68 yr old male bronchoscopy/EBUS for lymphadenopathy Clinical Impression : Possible lymphoma vs sarcoid Pertinent Radiologic Findings ??: (not provided) Gross Description: Received ??in Formalin approximately 25 mL total volume of ?? cloudy, bloody fluid, with clots. Total Preparation: Cell Block 1. 08/02/2023 11:35 AM EST [facility] LYMPH NODE SPECIMEN / Unknown 07/29/2023 1:37 PM EDT 07/29/2023 1:37 PM EDT Toro Gonzales MD PATHOLOGY/CYTOLOGY O RDERABLES [facility] [place] [id number] [facility] [place] [address] * Non-Esl Instructor Final Report (07/29/2023 1:37 PM EDT) Diagnosis Discussion [id number] ? Location: 4T; [facility]; A The signing pathologist has (i) examined the relevant preparation(s) for the specimen(s) and (ii) rendered or confirmed the diagnosis(es). . ? Non-Esl Instructor Final DIAGNOSIS See Discussion Electronically signed by: ?Tacho FREEMAN Denilson X Verified: ??08/02/2023 11:32 ??Pathologist Performed at: ??-[facility] Dept. of Pathology, [place] [address] Electrician Technician: Filipe Hoagn MD, FCAP, ??CLIA Certificate: [id number] DISCUSSION Lymph node: station 7 (EBUS-guided FNA) - - Reactive follicular hyperplasia (see Comment) Comment: Sections show follicles with well-formed germinal centers and intact mantle cuffs. Immunostains show an intact immunoarchitechture (see Immunohistochemistry Studies). Concurrent flow cytometry ([id number]) performed on the surgical specimen from this site did not detect a monotypic B-cell population or immunophenotypically aberrant T-cell population, supporting the diagnosis. IMMUNOHISTOCHEMISTRY STUDIES Block: ?A1 Fixative: ?? Formalin ANTIBODY ?RESULT/COMMENT CD3 ? Stains parafollicular T-cells CD20 ?Stains B-cells with a follicular distribution BCL6 ?Stains germinal centers BCL2 ?Negative in germinal centers, stains T-cells CD10 ?Stains germinal centers CD5 ? Negative in B-cells, stains T-cells Cyclin D1 ?? Negative Ki-67 ? Shows appropriate staining of germinal centers The immunoperoxidase stains reported above were developed by the clinical laboratory at [facility]. Antibody specificities have been verified on tissues with known staining performance characteristics. These stains have not been cleared or approved by the U.S. Food and Drug Administration, however such approval is not required for analyte-specific reagents of this type. Appropriate positive and negative controls are included for each case. (Cell block was examined.) CLINICAL INFORMATION Specimen Source : Lymph node: station 7 (EBUS-guided FNA) Pertinent Clinical Data and Significant Therapy: 68 yr old male bronchoscopy/EBUS for lymphadenopathy Clinical Impression : Possible lymphoma vs sarcoid . CLINICAL INFORMATION Pertinent Radiologic Findings ??: (not provided) Gross Description: Received ??in Formalin approximately 30 mL total volume of ?? cloudy, bloody fluid, with clots. Total Preparation: Cell Block 1. 08/02/2023 11:32 AM EST [facility] LYMPH NODE SPECIMEN / Unknown 07/29/2023 1:37 PM EDT 07/29/2023 1:37 PM EDT Toro Gonzales MD PATHOLOGY/CYTOLOGY O LEIF Performing Organization Address City/[facility]/ZIP Co de Phone Number [facility] [place], [place] [id number] [place] [address] [place] [address] * Cytopathology Non-Gynecological (07/29/2023 1:37 PM EDT) AP Specimen 07/29/2023 1:37 PM EDT 07/29/2023 1:37 PM EDT Narrative [facility] - 07/29/2023 1:37 PM EDT Specimen requisition ordered. ??Separate Pathology report to follow Toro Gonzales MD PATHOLOGY/CYTOLOGY O LEIF [facility] [place] [address] * Cytopathology Non-Gynecological (07/29/2023 1:37 PM EDT) AP Specimen 07/29/2023 1:37 PM EDT 07/29/2023 1:37 PM EDT Narrative [facility] - 07/29/2023 1:37 PM EDT Specimen requisition ordered. ??Separate Pathology report to follow Toro Gonzales MD PATHOLOGY/CYTOLOGY O LEIF Performing Organization Address [facility] Co de Phone Number [facility] [place] [address] * Cytopathology Non-Gynecological (07/29/2023 1:37 PM EDT) AP Specimen 07/29/2023 1:37 PM EDT 07/29/2023 1:37 PM EDT Narrative [facility] - 07/29/2023 1:37 PM EDT Specimen requisition ordered. ??Separate Pathology report to follow Troo Gonzales MD PATHOLOGY/CYTOLOGY O LEIF Performing Organization Address [facility] Co de Phone Number [facility] [place] [address] * Specimen to Pathology (07/29/2023 1:36 PM EDT) AP Specimen 07/29/2023 1:36 PM EDT 07/29/2023 1:36 PM EDT Narrative [facility] - 07/29/2023 1:36 PM EDT Specimen requisition ordered. ??Separate Pathology report to follow Toro Gonzales MD PATHOLOGY/CYTOLOGY O LEIF Performing Organization Address [facility] de Phone Number [facility] [place] [address] * Flow Cytometry Report (07/29/2023 1:35 PM EDT) Pathologist [facility] Flow Cytometry Report [id number] ? Location: 4T; EA08; A The signing pathologist has (i) examined the relevant preparation(s) for the specimen(s) and (ii) rendered or confirmed the diagnosis(es). . ?Flow Cytometry DIAGNOSIS LYMPH NODE, STATION 7, FLOW CYTOMETRY: - No monotypic B-cell population or immunophenotypically aberrant T-cell population detected. Comment: Flow cytometry does not detect certain hematolymphoid malignancies and non- hematolymphoid malignancies. Correlation with pending morphology (case [id number]) from the biopsy is recommended. Electronically signed by: ?Tacho FREEMAN Denilson Chaudhari Verified: ??08/02/2023 11:28 ??Pathologist Performed at: ??-[facility] Dept. of Pathology, [place] [address] Electrician Technician: Filipe Hoang MD, FCAP, ??CLIA Certificate: [id number] DISCUSSION Cell viability was ~54% as assessed by 7-AAD exclusion. The T-lymphocytes, B- lymphocytes and CD56+ NK cells comprise approx 59%, 39%, 3% of the gated population, respectively. The CD19 positive B-cells have a polytypic expression of surface immunoglobulin light chain (Cambridge:Lambda ratio at 1.6). The T-cells are an admixture of CD4+ and CD8+ T lymphocytes (ratio of 5.6). No loss or atypical intensity distributions are seen for any unger T antigen (CD2, 3, 4+8, 5, 7). There is no increase in AQ17-dcqjhzmh/CD3-neg NK cells. Flow analysis is an ancillary study. A definite diagnosis requires correlation with the morphologic features of this process and if necessary, correlation with other ancillary studies like immunohistochemistry, enzyme cytochemistry and/or cyto/ molecular genetics. This test was developed and its performance characteristics determined by the Clinical Flow Cytometry Laboratory at [facility]. It has not been cleared or approved by the U.S. Food and Drug Administration. ??The FDA has determined that such clearance or approval is not necessary. ??This test is used for clinical purposes. ??It should not be regarded as investigational or for research. This laboratory is certified under the Clinical Laboratory Improvement Act of 1988 (CLIA) as qualified to perform high complexity clinical laboratory testing. SPECIMEN PROCESSING [id number] Cells for immunophenotypic analysis were derived from station 7 lymph node. CD45 vs side scatter gating was utilized to identify a lymphoid analysis region that comprises approximately 84-85% of all cells. The following markers were assessed: CD2, CD3, CD4, CD5, CD7, CD8, CD10, CD19, CD45, CD56, kappa light chain, lambda light chain, (c)kappa light chain, and (c)lambda light chain. CLINICAL INFORMATION 68 year old male with mediastinal lymphadenopathy, splenomegaly and fatigue. [facility] 07/29/2023 1:35 PM EDT Toro Gonzales MD PATHOLOGY/CYTOLOGY O RDERABLES Performing Organization Address [facility] de Phone Number [facility] [place] [address] * Immunophenotyping Flow Cytometry (07/29/2023 1:35 PM EDT) Immunophenotyping Flow See Comment [facility] Comment: When completed by the Pathologist, the Flow Cytometry Report ([id number]) will display under the Pathology Results section within eDH. Other 07/29/2023 1:35 PM EDT 07/29/2023 1:50 PM EDT Narrative Resulting Agency Comment Spec In Lab Toro Gonzales MD HEMATOLOGY ORDERABLE S Performing Organization Address [facility] [place] [address] * Non-Esl Instructor Final Report (07/29/2023 1:10 PM EDT) Diagnosis Discussion [id number] ? Location: 4T; EA08; A The signing pathologist has (i) examined the relevant preparation(s) for the specimen(s) and (ii) rendered or confirmed the diagnosis(es). . ? Non-Esl Instructor Final DIAGNOSIS See Discussion Electronically signed by: ?Foster WINCHESTER, Khoi Verified: ??08/02/2023 13:27 ??Pathologist Performed at: ??-[facility] Dept. of Pathology, [place] [address] Electrician Technician: Filipe Hoang MD, AP, ??CLIA Certificate: [id number] DISCUSSION Bronchial alveolar lavage: Alveolar macrophages, respiratory epithelial cells, reactive pneumocytes, and mixed ??inflammatory cells are present. No overtly cytologically malignant cells seen. The material might not be fully medical field representative of the target lesion. Clinical and radiologic correlation is required. (Cell block was examined.) CLINICAL INFORMATION Specimen Source : Bronchial alveolar lavage Pertinent Clinical Data and Significant Therapy: Lymphadenopathy and pulmonary opacities Clinical Impression : Possible malignancy (carcinoma vs lymphoma vs other); sarcoid is possible Pertinent Radiologic Findings ??: (not provided) Gross Description: Received ??fresh, approximately 5 mL total volume of ?? clear, colorless fluid. Total Preparation: Liquid-Based Prep 1; Cell Block 1. 08/02/2023 1:27 PM EST [facility] BRONCHIAL STRUCTURE / Unknown 07/29/2023 1:10 PM EDT 07/29/2023 1:10 PM EDT Toro Gonzales MD PATHOLOGY/CYTOLOGY O RDERABLES [facility] [address] [place] [address] * Surgical Pathology Report (07/29/2023 1:10 PM EDT) Final Diagnosis [id number] ? Location: 4T; EA08; A The signing pathologist has (i) examined the relevant preparation(s) for the specimen(s) and (ii) rendered or confirmed the diagnosis(es). . ? Addendum ADDENDUM DISCUSSION This addendum is to integrate the findings of the B-cell clonality study. B-cell clonality studies by NGS for [facility] were negative, supporting the histologic impression of a reactive process. Electronically signed by: ?Denilson Titus DO Verified: ??08/23/2023 9:45 ?? Pathologist Performed at: ??-[facility] Dept. of Pathology, [place] [address] Electrician Technician: Filipe Hoang MD, FCAP, ??CLIA Certificate: [id number] ?Surgical Pathology DIAGNOSIS Lymph node, station 7, biopsy - - Reactive follicular hyperplasia (see Discussion) Electronically signed by: ?Denilson Titus DO Verified: ??08/02/2023 11:48 ??Pathologist Performed at: ??-[facility] Dept. of Pathology, [place] [address] Electrician Technician: Filipe Hoang MD, FCAP, ??CLIA Certificate: [id number] DISCUSSION Sections show follicles with well-formed germinal centers and intact mantle cuffs. Immunostains show an intact ?? immunoarchitecture ??(see Additional Studies). Concurrent flow cytometry ([id number]) performed on the surgical specimen from this site did not detect a monotypic B-cell population or immunophenotypically aberrant T-cell population, supporting the diagnosis. ADDITIONAL STUDIES IMMUNOHISTOCHEMISTRY STUDIES Block: ?A1 Fixative: ?? Formalin ANTIBODY ?RESULT/COMMENT CD3 ? Stains parafollicular T-cells CD20 ?Stains B-cells with a follicular distribution BCL6 ?Stains germinal centers BCL2 ?Negative in germinal centers, stains T-cells CD10 ?Stains germinal centers CD5 ? Negative in B-cells, stains T-cells Cyclin D1 ?? Negative Ki-67 ? Shows appropriate staining of germinal centers The immunoperoxidase stains reported above were developed by the clinical laboratory at [facility]. Antibody specificities have been verified on tissues with known staining performance characteristics. These stains have not been cleared or approved by the U.S. Food and Drug Administration, however such approval is not required for analyte-specific reagents of this type. Appropriate positive and negative controls are included for each case. SPECIMEN(S) SUBMITTED A - EBUS directed ??mediastinal ??cryobiopsies ??of station 7, biopsy (Multiple) . CLINICAL INFORMATION Lymphadenopathy, splenomegaly, cytopenia SPECIMEN PROCESSING A - Labeled/Fixative: EBUS directed mediastinal cryobiopsies of station 7, formalin. Quantity/Size: Fragments, averaging 0.3 x 0.2 cm. Tissue Description: Soft, pink-red tissue. Sections/Processing: Entirely submitted in 1 cassette labeled A1. ??pps 08/23/2023 9:45 AM EST [facility] LYMPH NODE SPECIMEN / Unknown 07/29/2023 1:10 PM EDT 07/29/2023 1:10 PM EDT Toro Gonzales MD PATHOLOGY/CYTOLOGY O RDERABLES [facility] [address] [place] [address] * Flow Cytometry Report (07/29/2023 1:10 PM EDT) Flow Cytometry Report [id number] ? Location: 4T; EA08; A The signing pathologist has (i) examined the relevant preparation(s) for the specimen(s) and (ii) rendered or confirmed the diagnosis(es). . ?Flow Cytometry DIAGNOSIS BRONCHIAL ALVEOLAR LAVAGE FLUID - FLOW CYTOMETRY: - The T-cell CD4:CD8 ratio is ~1.37:1, limited study (see Discussion). Electronically signed by: ?Dontaeammy Denilson FREEMAN Verified: ??07/31/2023 9:26 ?? Pathologist Performed at: ??-[facility] Dept. of Pathology, [place] [address] Electrician Technician: Filipe Hoang MD, FCAP, ??CLIA Certificate: [id number] DISCUSSION Cell viability in the MJ72-[id number] low-SSC histogram region was 67% as assessed by 7- AAD exclusion. Lymphocytes enriched gate approximately 5% of total events, consisting of T-cells (90%), B-cells (0%), and NK-cells (5%). The CD4:CD8 ratio is 1.37:1 (normal 0.9-2.5 for adults). Limited number of events (<50 events of interest) detected for analysis. Flow analysis is an ancillary study. A definite diagnosis requires correlation with the morphologic features of this process and if necessary, correlation with other ancillary studies like immunohistochemistr y, enzyme cytochemistry and/or cyto/ molecular genetics. This test was developed and its performance characteristics determined by the Clinical Flow Cytometry Laboratory at [facility]. It has not been cleared or approved by the U.S. Food and Drug Administration. ??The FDA has determined that such clearance or approval is not necessary. ??This test is used for clinical purposes. ??It should not be regarded as investigational or for research. This laboratory is certified under the Clinical Laboratory Improvement Act of 1988 (CLIA) as qualified to perform high complexity clinical laboratory testing. SPECIMEN PROCESSING [id number] Cells for immunophenotypic analysis were derived from BAL. CD45 vs side scatter gating was utilized to identify a lymphoid analysis region that comprises approximately 5% of all cells. The following markers were assessed: CD3, CD4, CD8, CD19, CD45, and CD56. CLINICAL INFORMATION 68 year old male with mediastinal and yanely hepatic adenopathy, splenomegaly and fatigue, clinically suspected differential diagnosis includes lymphoma, sarcoidosis and carcinoma. BAL for CD4:CD8 ratio. [facility] 07/29/2023 1:10 PM EDT Toro Gonzales MD PATHOLOGY/CYTOLOGY O RDERABLES [facility] [place] [address] * Immunophenotyping Flow Cytometry (07/29/2023 1:10 PM EDT) Immunophenotyping Flow See Comment [facility] Comment: When completed by the Pathologist, the Flow Cytometry Report ([id number]) will display under the Pathology Results section within eD. Other 07/29/2023 1:10 PM EDT 07/29/2023 1:23 PM EDT Narrative Resulting Agency Comment Spec In Lab Toro Gonzales MD HEMATOLOGY ORDERABLE S Performing Organization Address [facility] Co de Phone Number [facility] [place] [address] * Cell Count, Bronchoalveolar Lavage (07/29/2023 1:10 PM EDT) Color BAL Colorless [facility] Appearance, BAL Slightly Hazy [facility] NUC, BAL Count 46 mcL [facility] Seg BAL 8 % [facility] Lymph, BAL 22 % [facility] Macrophage BAL 58 % [facility] Eos, BAL 12 % [facility] Total Cells, BAL 200 Cells [facility] Bronchial Alveolar Lavage 07/29/2023 1:10 PM EDT 07/29/2023 1:23 PM EDT Narrative Resulting Agency Comment Spec In Lab Toro Gonzales MD BODY FLUIDS AND STOO LS ORDERABLES Performing Organization Address [facility] Co de Phone Number [facility] [place] [address] * Calcofluor White Stain (07/29/2023 1:07 PM EDT) Calcofluor Stain Calcofluor White Preparation: Negative [facility] Bronchial Alveolar Lavage 07/29/2023 1:07 PM EDT 07/29/2023 1:31 PM EDT Narrative Resulting Agency Comment Spec In Lab Toro Gonzales MD MICROBIOLOGY - GENER AL ORDERABLES Performing Organization Address City/[facility] [place] [address] * Fungus culture (07/29/2023 1:07 PM EDT) Fungus Culture No Fungus isolated [facility] Bronchial Alveolar Lavage 07/29/2023 1:07 PM EDT 07/29/2023 1:31 PM EDT Narrative Resulting Agency Comment Spec In Lab Toro Gonzales MD MICROBIOLOGY - GENER AL ORDERABLES Performing Organization Address [facility] [place] [address] * Lower Respiratory Culture Bronchial Alveolar Lavage (07/29/2023 1:07 PM EDT) Lower Respiratory Culture No growth [facility] Gram Stain Few Neutrophils seen No microorganisms seen. [facility] Bronchial Alveolar Lavage 07/29/2023 1:07 PM EDT 07/29/2023 1:31 PM EDT Narrative Resulting Agency Comment Spec In Lab Toro Gonzales MD MICROBIOLOGY - GENER AL ORDERABLES Performing Organization Address [facility] [place] [address] * AFB culture Bronchial Alveolar Lavage (07/29/2023 1:07 PM EDT) Acid Fast Bacilli Culture No Acid Fast Bacilli isolated If active tuberculosis is suspected, the patient should be on [employer]. Call Infection Prevention for assistance if needed. [facility] Acid Fast Stain No Acid Fast Bacilli seen [facility] Bronchial Alveolar Lavage 07/29/2023 1:07 PM EDT 07/29/2023 1:31 PM EDT Narrative Resulting Agency Comment Spec In Lab Toro Gonzales MD MICROBIOLOGY - GENER AL ORDERABLES Performing Organization Address City/[facility]/ZIP Co de Phone Number [facility] [place] [address] * Cytopathology Non-Gynecological (07/29/2023 1:06 PM EDT) AP Specimen 07/29/2023 1:06 PM EDT 07/29/2023 1:06 PM EDT Narrative [facility] - 07/29/2023 1:06 PM EDT Specimen requisition ordered. ??Separate Pathology report to follow Toro Gonzales MD PATHOLOGY/CYTOLOGY O LEIF [facility] [place] [address] * POCT Glucose (07/29/2023 12:25 PM EDT) Glucose, POC 140 65 - 199 mg/dL [facility] Comment: Supplemental ranges: <140 mg/dL before meals <180 mg/dL all other times of the day Blood 07/29/2023 12:2 5 PM EDT 07/29/2023 12:25 PM EDT Toro Gonzales MD POINT OF CARE TEST O LEIF Performing Organization Address [facility] [place] [address] documented in this encounter Visit Diagnoses Diagnosis Lymphadenopathy Enlargement of lymph nodes documented in this encounter Administered Medications Inactive Administered Medications - up to 3 most recent administrations Medication Order MAR Action Action Date Dose Rate Site lactated ringers infusion 100 mL/hr, Intravenous, CONTINUOUS, Starting on Adriane 07/29/23 at 1230, Until Adriane 07/29/23 at 1653, Endoscopy (Day of Procedure) New Bag 07/29/2023 12:51 PM EDT documented in this encounter Active and Recently Administered Medications Times are shown in EDT. Continuous Medication Order 07/27/2023 07/28/2023 07/29/2023 lactated ringers infusion 100 mL/hr, Intravenous, CONTINUOUS, Starting on Adriaen 07/29/23 at 1230, Until Adriane 07/29/23 at 1653, Endoscopy (Day of Procedure) 1251 (New Bag - Prov ider: Scarlett Zuñiga CRNA)1313 (Anesthesia Volume Adjustment - Provider: Scarlett Zuñiga CRNA) documented in this encounter Care Teams Salvager Relationship Specialty Start Date End Date Veronica Campbell APRN [address] [place] [address] PCP - General Family Medicine 01/18/22 documented as of this encounter
--- OUTSIDE RECORDS SUMMARY | 2024-05-18 15:16 | XMS_ITS | Encounter Summary ---
Author Organization [facility] [place] [address] Care Team Providers Care Certified Social Workers In Health Care Name Role Phone Veronica Campbell CHRISTEL Primary Care Provider [phone] Encounter Details Date Type Department Care Team (Latest Contact Info) Description 11/29/2023 Travel Social History Tobacco Use Types Packs/Day [...] 2:00 PM EDT Office [place] [address] Bernard Linares MD [facility] [place] [address] 09/07/2024 3:00 PM EST Office Visit Dermatology at [facility] [address] [place] [address] Jeremiah Preston MD [facility] [place] [address] documented as of this encounter Visit Diagnoses Not on filedocumented in this encounter Care Teams Certified Social Workers In Health Care Relationship Specialty Start Date End Date Veronica Campbell APRN [address] [place] [address] PCP - General Family Medicine 01/18/22 documented as of this encounter
--- OUTSIDE RECORDS SUMMARY | 2024-05-18 15:16 | XMS_ITS | Encounter Summary ---
Author Organization [place] [address] Care Team Providers Care Licensed Embalmer Name Role Phone Veronica Campbell CHRISTEL Primary Care Provider [phone] Encounter Details Date Type Department Care Team (Latest Contact Info) Description 10/25/2023 Travel Social History Tobacco Use Types Packs/Day [...] 2:00 PM EDT Office [place] [address] Bernard Linares MD [facility] [place] [address] 09/07/2024 3:00 PM EST Office Visit Dermatology at [facility] [address] [place] [address] Jeremiah Preston MD [facility] [place] [address] documented as of this encounter Visit Diagnoses Not on filedocumented in this encounter Care Teams Licensed Embalmer Relationship Specialty Start Date End Date Veronica Campbell APRN [address] [place] [address] PCP - General Family Medicine 01/18/22 documented as of this encounter
--- OUTSIDE RECORDS SUMMARY | 2024-05-18 15:16 | XMS_ITS | Encounter Summary ---
Author Organization [facility] [place] [address] Care Team Providers Care Scale Technician Name Role Phone Veronica Campbell APRN Primary Care Provider [phone] Encounter Details Date Type Department Care Team (Late st Contact Info) Description 10/07/2023 Ancillary Procedure [place] [address] Veronica Campbell APRN [address] [place], [place] [address] Social History Tobacco Use Types Packs/Day Years [...] 2:00 PM EDT Office [place] [phone] Bernard Linares MD [facility] [place] [address] 09/07/2024 3:00 PM EST Office Visit Dermatology at [facility] [address] [place] [address] Jeremiah Preston MD [facility] [place] [address] documented as of this encounter Procedures Procedure Name Priority Date/Time Associated Diagnosis Comments FILM LIBRARY STORAGE ONLY CT HEAD Routine 10/07/2023 12:00 AM EST documented in this encounter Results * Film Library- Storage Only CT Head (10/07/2023 12:00 AM EST) Narrative [facility] - 10/11/2023 2:37 PM EST This exam is auto-finalizing. It's purpose is for storage only. Veronica Campbell APRN IMG FILM LIBRARY ORD ERABLES Performing Organization Address City/State/[facility] Co de Phone Number [place], [place] documented in this encounter Visit Diagnoses Not on filedocumented in this encounter Care Teams Scale Technician Relationship Specialty Start Date End Date Veronica Campbell APRN [address] [place] [address] PCP - General Family Medicine 01/18/22 documented as of this encounter
--- OUTSIDE RECORDS SUMMARY | 2024-05-18 15:16 | XMS_ITS | Encounter Summary ---
Author Organization [facility] Address [facility] [place] [address] Care Team Providers Care Rack Loader Name Role Phone Veronica Campbell CHRISTEL Primary Care Provider [phone] Reason for Referral * Consultation (Routine) - Closed Specialty Diagnoses / Procedures Referred By Jason garcia Referred To Contact Otolaryngology Diagnoses Chronic sinusitis, unspecified location Indra Man MD [address] [place] [address] [place] [address] Bernard Linares MD [facility] [place] [address] Referral ID Status Reason Start Date Expiration Date V isits Requested Visits Authorized [id number] Closed Consult, Test & Treat 10/14/2023 10/13/2024 1 1 Encounter Details Date Type Department Care Team (Late st Contact Info) Description 10/14/2023 Transcribe Orders eD Incoming Referrals [phone] Indra Man MD [address] [place] [address] [address] [place], [place] [id number] Chronic sinusitis, unspecified location Social History Tobacco Use Types Packs/Day Years [...] 2:00 PM EDT Office [place] [address] Bernard Linares MD [facility] [place] [address] 09/07/2024 3:00 PM EST Office Visit Dermatology at [facility] [address] [place] [address] Jeremiah Preston MD [facility] [address] [place] [address] Scheduled Referrals Name Type Priority Associated Diagnoses Orde r Schedule Referral to ENT Outpatient Referral Routine Chronic sinusitis, unspecified location Ordered: 10/14/2023 documented as of this encounter Visit Diagnoses Diagnosis Chronic sinusitis, unspecified location documented in this encounter Care Teams Rack Loader Relationship Specialty Start Date End Date Veronica Campbell APRN [address] [place] [address] PCP - General Family Medicine 01/18/22 documented as of this encounter
--- OUTSIDE RECORDS SUMMARY | 2024-05-18 15:16 | XMS_ITS | Encounter Summary ---
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 Name Role Phone Adrian Veronica CHRISTEL Primary Care Provider [phone] Reason for Visit * Auth/Cert (Routine) Specialty Diagnoses / Procedures Referred By Jason garcia Referred To Contact Diagnoses Chronic pansinusitis chronic pansinusitis, nasal obstruction, deviated nasal septum Procedures PRO NASAL SCOPY, EXPLOR FRONTAL SINUS PRO NASAL/SINUS NDSC TOT W/SPHENDT W/SPHEN TISS RMVL PRO NASAL/SINUS ENDOSCOPY MAX ANTROST W/RMVL TISS MAX SINUS PRO REPAIR OF NASAL SEPTUM PRO FRACTURE NASAL INFERIOR TURBINATE THERAPEUTIC PRO STEREOTACTIC CPTR ASSTD PX CRANIAL, EXTRADURAL NASAL, SINUS ENDOSCOPY, FRONTAL EXPLORE, INC TISSUE REMOVAL-BHANU (WRVU 6.75) NASAL,SINUS ENDOSCOPY,TOTAL ETHMOIDECTOMY INCLD SPHENOIDOTOMY W/ REMOVAL OF TISSUE (WRVU 8.48) NASAL, SINUS ENDOSCOPY, REMOVE TISSUE MAXILLARY SINUS, BHANU (WRVU 4.68) SEPTOPLASTY OR SMR, W/ OR W/O CARTILAGE SCORING, CONTOURING OR REPLACEMENT W/ GRAFT (WRVU 7.01) FRACTURE NASAL INFERIOR TURBINATE(S), THERAPEUTIC-BHANU (WRVU 1.31) STEREOTACTIC COMPUTER-ASSTD NAVIGATIONAL CRANIAL EXTRADURAL (WRVU 3.18) MODIFIER,STEALTH 2,KINEVO Bernard Linares MD [facility] [place] [address] [facility] Referral ID Status Reason Start Date Expiration Date Visits Re quested Visits Authorized [id number] 1 1 Encounter Details Date Type Department Care Team (Latest Contact Info) Description 11/26/2023 8:55 AM EST - 11/26/2023 3:06 PM EST Hospital Encounter [place] [address] Bernard Linares MD [facility] [place] [address] Chronic pansinusitis; Hypertrophy of nasal turbinates; Deviated nasal septum; Coronary artery disease due to lipid rich plaque; Nasal obstruction Discharge Disposition: Home Social History Tobacco Use [...] Sign Reading Time Taken Comments Blood Pressure 153/69 11/26/2023 2:40 PM EST Pulse 56 11/26/2023 2:40 PM EST Temperature 36.6 ??C (97.9 ??F) 11/26/2023 2:40 PM ES T Respiratory Rate 12 11/26/2023 2:40 PM EST Oxygen Saturation 96% 11/26/2023 2:40 PM EST Inhaled Oxygen Concentration - - Weight 98.2 kg (216 lb 9.6 oz) 11/26/2023 9:06 A M EST Height 177.8 cm (5' 10) 11/26/2023 9:06 AM EST Body Mass Index 31.08 11/26/2023 9:06 AM EST documented in this encounter Discharge Instructions * Patient Instructions* Grisel Calhoun PA - 11/26/2023 12:41 PM EST Instructions Following Nasal Surgery What to Expect [...] way back to exotic and/or spicy foods. Precautions It is best not to blow your [...] After two weeks, there are no limitations. Do not use CPAP/BIPAP for at least one month postoperatively. Medications In most instances, you will have [...] vision Unrelenting headache Unrelenting nausea and vomiting Currently Scheduled Appointments: Future Appointments and Orders Future Appointments and Orders Future Appointments Provider Department Dept Phone 12/01/2023 1:30 PM Grisel Calhoun PA Otolaryngology at [facility] Arrive at: [place] [facility] [phone] Please dispose of unused excess opioids before your appointment or bring them with you to the appointment and we will help you dispose of them correctly. 12/23/2023 1:45 PM [facility] DX ROOM 8 XRay at [facility] Arrive at: [place] [facility] [phone] FOR SUMAVA RESORTS PATIENTS: Please call Radiology at [phone] if you develop an infection unrelated to this exam, or are prescribed additional antibiotics prior to your appointment. We will need to reschedule your appointment for 2 weeks after the infection has resolved or the last dose of antibiotics. Please go to [facility] [place] [facility] 3T ([place] Location). 01/26/2024 2:40 PM [facility] CT 1 CT Scan at [facility] Arrive at: [facility] RADIOLOGY [phone] 01/26/2024 3:40 PM Paulie Velazquez MD Pulmonology at [facility] Arrive at: [place] [facility] [phone] documented in this encounter Medications at Time [...] by mouth daily. 07/16/[address]23 [address] MiscIndications:diabete s mellitus 1 each by Other route daily. Indications: diabetes 1 each 08/03/2022 FreeStyle Elma 2 Sensor KitIndications:diabetes mellitus 1 each by Other route daily. Indications: diabetes 6 kit 3 08/03/2022 icosapent ethyL (Vascepa) 1 gram CapsuleIndications:Zayra nary artery disease, unspecified vessel or lesion type, unspecified whether angina present, unspecified whether [place] or transplanted heart Take 2 capsules by [...] 11/26/2023 01/26/2024 documented as of this encounter Progress Notes * Maricruz Biggs RN - 11/26/2023 2:53 PM EST DC instructions reviewed with patient and . Medications discussed with patient. No questions orconcerns by patient regarding instructions. Patient agrees to discharge plan. ABCs intact and pt ambulatory to wheelchair. Family to drive pt home. Post anesthesia precautions explained to pt. Extra gauze sent home with pt for dressing changes documented in this encounter H&P Notes * Grisel Calhoun PA - 11/26/2023 9:26 AM EST OTOLARYNGOLOGY - HEAD & NECK SURGERY PRE OP H&P Name: Conrad Vera Age/Sex: 68 y.o. male Attending: Bernard Linares MD Interval History Conrad Vera's condition unchanged since H&P originally performed. Denies any new ED visits,hospitalizations, trauma, or new events. Has been overall doing well. He denies recent fevers, chills, headaches, chest pain, issues with breathing, nausea, vomiting, and/or changes in bowel habits Vitals Last value 24hr Range Temperature: 36.6 ??C (97.9 ??F) Temp: [36.6 ??C (97.9 ??F)] Heart Rate: 75 Heart Rate: [75] Blood Pressure: 166/82 BP: (166)/(82) Respiratory Rate: 18 Resp: [18] SpO2: 97 % SpO2: [97 %] Physical Exam General: NAD, alert. Heart: RRR Lungs: CTAB Neuro: Normal sensation and ROM in hands and feet bilaterally. ASSESSMENT & PLAN Conrad Vera is a 68 y.o. male who is here today due to chronic pansinusitis, nasal obstruction,deviated nasal septum. After extensive discussion of the risks, benefits, and alteratives of surgical intervention, the patient consented to proceed with surgery. Proceed to OR for: Procedure(s): NASAL, SINUS ENDOSCOPY, FRONTAL EXPLORE, INC TISSUE REMOVAL-BHANU (WRVU 6.75) NASAL,SINUS ENDOSCOPY,TOTAL ETHMOIDECTOMY INCLD SPHENOIDOTOMY W/ REMOVAL OF TISSUE (WRVU 8.48) NASAL, SINUS ENDOSCOPY, REMOVE TISSUE MAXILLARY SINUS, BHANU (WRVU 4.68) SEPTOPLASTY OR SMR, W/ OR W/O CARTILAGE SCORING, CONTOURING OR REPLACEMENT W/ GRAFT (WRVU 7.01) FRACTURE NASAL INFERIOR TURBINATE(S), THERAPEUTIC-BHANU (WRVU 1.31) STEREOTACTIC COMPUTER-ASSTD NAVIGATIONAL CRANIAL EXTRADURAL (WRVU 3.18) MODIFIER,STEALTH 2,KINEVO All questions and concerns addressed at this time. __ Grisel Calhoun [place] [address] 11/26/23 9:27 AM Associated attestation - Bernard Linares MD - 11/26/2023 10:04 AM EST Treatment options were reviewed including medical management and revision endoscopic sinus surgery with intraoperative image guidance. Sinus surgery was discussed in detail including risks and possible benefits. Risks discussed included but were not limited to bleeding, infection, septal perforation, damage to eye/vision, damage to brain, loss of smell or taste and cerebrospinal fluid leak. We also discussed the variable outcomes of surgery based on underlying pathophysiology and the need to have realistic expectations. Questions answered. I, Dr. Linares, saw and examined this patient with Grisel Calhoun PA-C. I performed the procedure I reviewed the note above and made revisions as needed and I agree with the plan as stated above. Bernard Linares M.D. [employer] Rhinology, Endoscopic Sinus & Skull Base Surgery Division of Otolaryngology - Head and Neck Surgery [facility] documented in this encounter Miscellaneous Notes * Op Note - Bernard Linares MD - 11/26/2023 10:54 AM EST PATIENT NAME: Conrad Vera SERVICE: Otolaryngology SURGEON: Bernard Linares MD ANESTHESIA: General endotracheal. PREOPERATIVE DIAGNOSIS: Chronic sinusitis, nasal obstruction POSTOPERATIVE DIAGNOSIS: Same PROCEDURE: Bilateral endoscopic total ethmoidectomy and sphenoidotomy with tissue removal, CPT 65697-02 Bilateral endoscopic frontal sinusotomy, CPT 51005-75 Bilateral endoscopic maxillary antrostomy with tissue removal, CPT 91706-21 Septoplasty, CPT 30965 Out-fracture of inferior turbinates bilateral, CPT 62146-40 Stereotactic image guidance, CPT 00923 ESTIMATED BLOOD LOSS: 30 mL RETAINED ITEMS: None SPECIMENS: Culture right nasal cavity COMPLICATIONS: None INDICATIONS: Conrad Vera is a 68 y.o. male who has failed medical therapy and presents today for surgical management. FINDINGS: Inspissated mucopus in bilateral maxillary, ethmoid, sphenoid and frontal sinuses, deviated nasal septum, inferior turbinate hypertrophy DESCRIPTION OF PROCEDURE: Conrad Vera was identified in the preoperative holding area, where the informed consent was reviewed, including a re-review of the risks, benefits and alternatives of the procedure to include bleeding, infection, injury to the eye/visual loss/double vision, cerebrospinal fluid (CSF) leak, tearing, altered smell and taste, recurrent symptoms, and need for further surgery. The patient wished toproceed as scheduled. The patient was brought to the operative room by Anesthesia, laid supine on the operating table, general anesthesia was induced and the patient was intubated orotracheally. The patient was turned toward the surgeons, and a time-out was performed with all members of the surgical team present. The patient was prepped and draped in the standard fashion. Topical epinephrine was used to decongest the nose and was used throughout the case for hemostasis. The image guidance machine was brought into the field, registered and its accuracy verified. It was used throughout the casefor confirmation of skull base and orbital anatomy. Vasoconstriction was performed then surgery comm enced on the left as follows: Due to obstructive deviation of the septum, a septoplasty was performed. A hemitransfixion incisionwas made on the left side. With the Ben elevator, the submucoperichondrial plane was identified and dissected on the left side, all the way to the posterior bony septum. A cartilaginous incision was made with the Ben, leaving at least 1 cm of caudal septal strut for tip support. The submucoperichondrial plane was identified and dissected on the right side to the posterior bony septum. A window was then cut out of the cartilaginous septum and removed. Bony deviations were identified and removed with gentle dissection to preserve the integrity of the mucosal flaps, and superior cuts were made with the Wes-Norma forceps. After all the deviated portions were removed, a small drainage hole was made in the left mucosal flap to prevent development of a septal hematoma. The flaps were re-approximated and the jamey-transfixion incision was closed with 4-O chromic suture in an interrupted fashion. Attention was turned to the left side. The left inferior turbinate was hypertrophied and obstructing the airway, therefore it was outfractured with good result. Maxillary antrostomy was performed on the left side. Using the Delano probe, the ethmoid infundibulum was gently dilated. The inferior aspect of the uncinate was removed using the back-biter. The maxillary sinus natural ostium was visualized and the Mamta probed used to dilated the natural ostium posteriorly. The maxillary antrostomy was enlarged by complete removal of the uncinate process and posterior fontanelle. Diseased tissue and inflammatory debris was removed from the sinus. The anterior ethmoidectomy was then performed on the left side. The tip of the J-curette was placed into the retrobullar recess and the bulla ethmoidalis was fractured forward. With the Kerrison forceps, the bulla ethmoidalis was taken up towards the skullbase and laterally to the lamina papyracea. The loose tissue was then removed using the microdebrid er. A posterior ethmoidectomy was then performed on the left side. Using the J- curette, the basal lamella was entered and fractured forward to gain access into the posterior ethmoidal compartment. With the Kerrison forceps, the basal lamella opening was enlarged to the skull base superiorly and thelamina papyracea laterally. The superior turbinate was identified. The inferior half of the superior turbinate was removed to expose the sphenoethmoid recess and the sphenoid ostium. All loose tissuewas removed with a microdebrider. The sphenoidotomy was then performed on the left side. With the J-curette, the natural sphenoid ostium was entered carefully and the face of the sphenoid was fractured anteriorly. The sphenoidotomy was enlarged using the Kerrison forceps in all directions to widelyopen the sphenoid sinus. Diseased tissue and debris was removed from the sphenoid sinus. Frontal sinusotomy was performed on the left side. The frontal sinusotomy was completed by using angled scopes, removing agger nasi, frontal cells and ethmoid bulla as needed for wide marsupialization. Loose tissue was then removed with the microdebrider. Care was taken to not strip mucosa in the frontal recess. Diseased tissue and debris were gently irrigated from the frontal sinus proper. Attention was turned to the right side. The right inferior turbinate was hypertrophied and obstructing the airway, therefore it was outfractured with good result. Maxillary antrostomy was performed on the right side. Using the Mamta probe, the ethmoid infundibulum was gently dilated. The inferior aspect of the uncinate was removed using the back-biter. The maxillary sinus natural ostium was visualized and the Delano probed used to dilated the natural ostium posteriorly. The maxillary antrostomy was enlarged by complete removal of the uncinate process and posterior fontanelle. Diseased tissue andinflammatory debris was removed from the sinus. The anterior ethmoidectomy was then performed on the right side. The tip of the J-curette was placed into the retrobullar recess and the bulla ethmoidalis was fractured forward. With the Kerrison forceps, the bulla ethmoidalis was taken up towards theskullbase and laterally to the lamina papyracea. The loose tissue was then removed using the microde brider. A posterior ethmoidectomy was then performed on the right side. Using the J-curette, the basal lamella was entered and fractured forward to gain access into the posterior ethmoidal compartment. With the Kerrison forceps, the basal lamella opening was enlarged to the skull base superiorly and the lamina papyracea laterally. The superior turbinate was identified. The inferior half of the superior turbinate was removed to expose the sphenoethmoid recess and the sphenoid ostium. All loose tissue was removed with a microdebrider. The sphenoidotomy was then performed on the right side. Withthe J-curette, the natural sphenoid ostium was entered carefully and the face of the sphenoid was fractured anteriorly. The sphenoidotomy was enlarged using the Kerrison forceps in all directions to widely open the sphenoid sinus. Diseased tissue and debris was removed from the sphenoid sinus. Frontal sinusotomy was performed on the right side. The frontal sinusotomy was completed by using angledscopes, removing agger nasi, frontal cells and ethmoid bulla as needed for wide marsupialization. Loose tissue was then removed with the microdebrider. Care was taken to not strip mucosa in the frontal recess. Diseased tissue and debris were gently irrigated from the frontal sinus proper. Hemostasis was achieved with suction cautery. Absorbable Surgicel followed by absorbable PosiSep X dressing soaked in Kenalog 40 was placed bilaterally. There were no complications of the procedure. I, Dr. Linares, performed the procedure. Dr. Linares was present and scrubbed for the entirety of theprocedure. documented in this encounter Plan of Treatment Upcoming Encounters Date Type Department Care Team (Late st Contact Info) Description 05/24/2024 2:00 PM EDT Office [place] [address] Bernard Linares MD [facility] [place] [address] 09/07/2024 3:00 PM EST Office Visit Dermatology at [address] [address] Jeremiah Preston MD [facility] DR YARA [place] [address] documented as of this encounter Procedures Procedure Name Priority Date/Time Associated Diagnosis Comments ANAEROBIC CULTURE Routine 11/26/2023 11: 11 AM EST HC GRAM STAIN FOR BACTERIA Routine 11/26/2023 11:11 AM EST BODY FLUID CULTURE, AEROBIC Routine 11/26/2023 11:11 AM EST HEMOGRAM STAT 11/26/2023 10:30 AM EST DIFFERENTIAL, AUTOMATED STAT 11/26/2023 10:30 AM EST CBC (WITH DIFF) STAT 11/26/2023 10:30 AM EST MODIFIER,STEALTH 2,KINEVO Yes 11/26/2023 10:13 AM EST Chronic pansinusitis Hypertrophy of nasal turbinates Deviated nasal septum Coronary artery disease due to lipid rich plaque Nasal obstruction Stereotactic Cptr Asstd Px Cranial, Extradural ([id number]) Yes 11/26/2023 10:13 AM EST Chronic pansinusitis Hypertrophy of nasal turbinates Deviated nasal septum Coronary artery disease due to lipid rich plaque Nasal obstruction Fracture Nasal Inferior Turbinate Therapeutic ([id number]) Yes 11/26/2023 10:13 AM EST Chronic pansinusitis Hypertrophy of nasal turbinates Deviated nasal septum Coronary artery disease due to lipid rich plaque Nasal obstruction Septoplasty/Submucous Resection W/Wo Cartilage Graft ([id number]) Yes 11/26/2023 10:13 AM EST Chronic pansinusitis Hypertrophy of nasal turbinates Deviated nasal septum Coronary artery disease due to lipid rich plaque Nasal obstruction Nasal/Sinus Endoscopy Max Antrost W/Rmvl Tiss Max Sinus ([id number]) Yes 11/26/2023 10:13 AM EST Chronic pansinusitis Hypertrophy of nasal turbinates Deviated nasal septum Coronary artery disease due to lipid rich plaque Nasal obstruction Nasal/Sinus Ndsc Tot W/Sphendt W/Sphen Tiss Rmvl ([id number]) Yes 11/26/2023 10:13 AM EST Chronic pansinusitis Hypertrophy of nasal turbinates Deviated nasal septum Coronary artery disease due to lipid rich plaque Nasal obstruction Nasal Scopy, Explor Frontal Sinus ([id number]) Yes 11/26/2023 10:13 AM EST Chronic pansinusitis Hypertrophy of nasal turbinates Deviated nasal septum Coronary artery disease due to lipid rich plaque Nasal obstruction POCT GLUCOSE Routine 11/26/2023 9:11 AM EST NASAL,SINUS ENDOSCOPY,TOTAL ETHMOIDECTOMY INCLD SPHENOIDOTOMY W/ REMOVAL OF TISSUE Routine 11/26/2023 7:38 AM EST Chronic pansinusitis Hypertrophy of nasal turbinates Deviated nasal septum Coronary artery disease due to lipid rich plaque Nasal obstruction STEREOTACTIC COMPUTER-ASSTD NAVIGATIONAL CRANIAL EXTRADURAL Routine 11/26/2023 7:38 AM EST Chronic pansinusitis Hypertrophy of nasal turbinates Deviated nasal septum Coronary artery disease due to lipid rich plaque Nasal obstruction NASAL, SINUS ENDOSCOPY, FRONTAL EXPLORE, INC TISSUE REMOVAL-BHANU Routine 11/26/2023 7:38 AM EST Chronic pansinusitis Hypertrophy of nasal turbinates Deviated nasal septum Coronary artery disease due to lipid rich plaque Nasal obstruction NASAL, SINUS ENDOSCOPY, REMOVE TISSUE MAXILLARY SINUS, BHANU Routine 11/26/2023 7:38 AM EST Chronic pansinusitis Hypertrophy of nasal turbinates Deviated nasal septum Coronary artery disease due to lipid rich plaque Nasal obstruction TURBINATE, FRACTURE OF, THERAPEUTIC- BHANU Routine 11/26/2023 7:38 AM EST Chronic pansinusitis Hypertrophy of nasal turbinates Deviated nasal septum Coronary artery disease due to lipid rich plaque Nasal obstruction SEPTOPLASTY OR SMR W/ OR W/O CARTILAGE SCOR CONTOUR OR REPLACE W/ GRFT Routine 11/26/2023 7:38 AM EST Chronic pansinusitis Hypertrophy of nasal turbinates Deviated nasal septum Coronary artery disease due to lipid rich plaque Nasal obstruction documented in this encounter Results * Anaerobic Culture (11/26/2023 11:11 AM EST) Anaerobic Culture No anaerobic organisms isolated [facility] Fluid 11/26/2023 11:1 1 AM EST 11/26/2023 11:30 AM EST Comment:Right nasal cavity Narrative Resulting Agency Comment Spec In Lab Bernard Linares MD MICROBIOLOGY - GENER AL ORDERABLES [facility] [place] [address] * (ABNORMAL) Body Fluid Culture, Aerobic (11/26/2023 11:11 AM EST) Body Fluid Culture Few Staphylococcus aureus Few normal upper respiratory edilson (A) [facility] Gram Stain Cytocentrifuge Gram Stain performed Neutrophils seen Few Gram Positive Cocci Rare Gram Positive Rods (A) [facility] Organism Staphylococcus aureus(A) [facility] Fluid 11/26/2023 11:1 1 AM EST 11/26/2023 11:30 AM EST Comment:Right nasal cavity Narrative Resulting Agency Comment Spec In Lab Organism Antibiotic Method Susceptibility Staphylococcus aureus Clindamycin VITEK 2 METHOD Resistant Staphylococcus aureus Erythromycin VITEK 2 METHOD Resistant Staphylococcus aureus Gentamicin VITEK 2 METHOD Sensitive Comment:Gentamicin i s not appropriate for [place]-therapy. Staphylococcus aureus Oxacillin VITEK 2 METHOD Sensitive Comment: Oxacillin (methicillin) susceptibility is a surrogate for the oral and parenteral cephalosporins, beta-lactam combination agents (amoxicillin-clavulanate, ampicillin-sulbactam and piperacillin-tazobactam) and carbapenem agents. ??It is NOT a surrogate for penicillin, ampicillin or piperacillin susceptibility. Staphylococcus aureus Trimethoprim/Sulfa VITEK 2 METHO D Sensitive Staphylococcus aureus Tetracycline VITEK 2 METHOD Sensitive Staphylococcus aureus Vancomycin VITEK 2 METHOD Sensitive Bernard Linares MD MICROBIOLOGY - GENER AL ORDERABLES [facility] [place] [address] * Differential, Automated (11/26/2023 10:30 AM EST) Neutrophil % 53.4 % [facility] Neutrophil Absolute 2.76 1.70 - 6.10 x10(3)/[facility] Lymph % 31.9 % [facility] Lymphocytes Abs 1.6 0.9 - 3.2 x10(3)/[facility] Monocyte % 8.3 % [facility] Monocyte Abs 0.4 0.3 - 0.9 x10(3)/[facility] Eos % 5.2 % [facility] Eosinophils Abs 0.3 0.0 - 0.4 x10(3)/[facility] Basophil % 0.8 % [facility] Baso Absolute 0.0 0.0 - 0.1 x10(3)/[facility] Immature Gran % 0.40 % [facility] Comment: Immature granulocytes(IG's)percentage and absolute count will include metamyelocytes, myelocytes, and promyelocytes. Blood smears from CBCs yielding IG's will be scanned manually for concordance. If this scan disagrees with the automated IG or if promyelocytes are noted, a manual differential will be performed. Immature Gran Absolute 0.02 0.00 - 0.04 x10(3)/mcL [facility] Blood 11/26/2023 10:3 0 AM EST 11/26/2023 11:21 AM EST Narrative Resulting Agency Comment Spec In Lab Bernard Linares MD HEMATOLOGY ORDERABLE S [facility] [place] [address] * (ABNORMAL) Hemogram (11/26/2023 10:30 AM EST) White Blood Cell 5.2 4.0 - 9.5 x10(3)/mc L [facility] Red Blood Cell 3.68(L) 4.58 - 5.54 x10(6)/mc L [facility] Hemoglobin 11.7(L) 13.7 - 16.5 g/dL [facility] Hematocrit 33.9(L) 40.5 - 48.5 % [facility] Comment: This result has been called to ALEX MIRZA by Braeden Corea on 11 26 2023 at 1142, and has been read back. Mean Cell Volume 92.1 82.9 - 93.1 fL [facility] Mean Cell Hemoglobin 31.8 27.5 - 32.1 pg [facility] Mean Cell Hemoglobin Concentration 34.5 32.0 - 35.7 g/dL [facility] Platelet 118(L) 145 - 357 x10(3)/mc L [facility] RDW Standard Deviation 47.8(H) 36.0 - 45.0 fL [facility] RDW coefficient of variation 14.3(H) 11.4 - 13.8 % [facility] Mean Platelet Volume 10.6 7.6 - 12.9 fL [facility] NRBC% auto 0.0 % [facility] NRBC Absolute 0.000 0.000 - 0.000 x10(3)/mc L [facility] Blood 11/26/2023 10:3 0 AM EST 11/26/2023 11:21 AM EST Narrative Resulting Agency Comment Spec In Lab Bernard Linares MD HEMATOLOGY ORDERABLE S [facility] [place] [address] * (ABNORMAL) POCT Glucose (11/26/2023 9:11 AM EST) Glucose, POC 209(H) 65 - 199 mg/dL [facility] Comment: Supplemental ranges: <140 mg/dL before meals <180 mg/dL all other times of the day Blood 11/26/2023 9:11 AM EST 11/26/2023 9:11 AM EST Bernard Linares MD POINT OF CARE TEST O RDERABLES Performing Organization Address [facility]/ZIP Co de Phone Number [facility] [place] [address] documented in this encounter Visit Diagnoses Diagnosis Chronic pansinusitis Other chronic sinusitis Hypertrophy of nasal turbinates Deviated nasal septum Coronary artery disease due to lipid rich plaque Nasal obstruction Other diseases of nasal cavity and sinuses documented in this encounter Administered Medications Inactive Administered Medications - up to 3 most recent administrations Medication Order MAR Action Action Date Dose Rate Site HYDROmorphone (Dilaudid) (0.2 mg/1 mL) injection syringe 0.4 mg 0.4 mg, Intravenous, EVERY 10 MIN PRN, Starting on Wed11/26/23 at 1305, Until Wed11/26/23 at 1505, Pain, For Moderate to Severe Pain (6-10 out of 10), Hold for respiratory rate less than 10 per minute. Maximum dose 3 mg over one hour including administrations in the OR. If multiple pain medications are ordered, start with HYDROmorphone or morphine and use fentaNYL for breakthrough pain., PACU Recovery, Routine Given 11/26/2023 1:12 PM EST 0.4 mg documented in this encounter Active and Recently Administered Medications Times are shown in EST. Scheduled Medication Order 11/24/2023 11/25/2023 11/26/2023 acetaminophen (Tylenol) tablet 975 mg 975 mg, Oral, USER SPECIFIED (4 times per day), First dose on Wed11/26/23 at 1800, Until Discontinued, Maximum dose of acetaminophen is 4000 mg from all sources in 24 hours. When ordered for pain, acetaminophen should be given even when other ordered pain medications are indicated. , Routine ceFAZolin (Ancef) 2 g vial attach to sodium chloride 0.9% 100 mL Mini-Bag Plus (COMPLETED) 2 g, Intravenous, ONCE, 1 dose, On Wed11/26/23 at 0930, Administer over 30 Minutes, Day of Surgery (Day of Procedure), Indication for (Active or Suspected): Prophylaxis 1040 (New Bag - Prov ider: Nick Maldonado, HAND RIVETER) PRN Medication Order 11/24/2023 11/25/2023 11/26/2023 HYDROmorphone (Dilaudid) (0.2 mg/1 mL) injection syringe 0.4 mg (CANCELED)(Linked Group 1) 0.4 mg, Intravenous, EVERY 10 MIN PRN, Starting on Wed11/26/23 at 1305, Until Wed11/26/23 at 1505, Pain, For Moderate to Severe Pain (6-10 out of 10), Hold for respiratory rate less than 10 per minute. Maximum dose 3 mg over one hour including administrations in the OR. If multiple pain medications are ordered, start with HYDROmorphone or morphine and use fentaNYL for breakthrough pain., PACU Recovery, Routine 1312 (Given - Provid er: Maricruz Biggs RN - Comment: ANESTHESIA OK TO ADMIN; PT STATES NO ALLERGY TO NARCOTICS JUST GETS CONSTIPATED ; PT ASKING FOR DOSE) triamcinolone acetonide (Kenalog-40) (40 mg/mL) injection (CANCELED) PRN, Starting on Wed11/26/23 at 1210, Until Wed11/26/23 at 1706, Intra-Operative (Intra-Procedure), Routine 1210 (Given - Provid er: Bernard Linares MD - Comment: MIX WITH 5ML OF NORMAL SALINE.) Linked Groups Order Group 1: HYDROmorphone (Dilaudid) (0.2 mg/1 mL) injection syringe 0.2 mg (CANCELED) 0.2 mg, Intravenous, EVERY 10 MIN PRN, Starting on Wed11/26/23 at 1305, Until Wed11/26/23 at 1505, Pain, For Mild to Moderate Pain (1-5 out of 10), Hold for respiratory rate less than 10 per minute. Maximum dose 3 mg over one hour including administrations in the OR. If multiple pain medications are ordered, start with HYDROmorphone or morphine and use fentaNYL for breakthrough pain., PACU Recovery, Routine Or HYDROmorphone (Dilaudid) (0.2 mg/1 mL) injection syringe 0.4 mg (CANCELED)Jump to med 0.4 mg, Intravenous, EVERY 10 MIN PRN, Starting on Wed11/26/23 at 1305, Until Wed11/26/23 at 1505, Pain, For Moderate to Severe Pain (6-10 out of 10), Hold for respiratory rate less than 10 per minute. Maximum dose 3 mg over one hour including administrations in the OR. If multiple pain medications are ordered, start with HYDROmorphone or morphine and use fentaNYL for breakthrough pain., PACU Recovery, Routine documented in this encounter Care Teams Machinery Repair Maintenance Supervisor Relationship Specialty Start Date End Date Veronica Campbell APRN [address] [place] [address] PCP - General Family Medicine 01/18/22 documented as of this encounter
--- OUTSIDE RECORDS SUMMARY | 2024-05-18 15:16 | XMS_ITS | Encounter Summary ---
Author Organization [facility] Address [facility] [place] [address] Care Team Providers Care Molding Technician Name Role Phone Adrian Veronica CHRISTEL Primary Care Provider [phone] Reason for Visit * Auth/Cert (Routine) Specialty [...] (WRVU 3.18) MODIFIER,STEALTH 2,KINEVO Bernard Linares MD [facility] [place] [address] [facility] Referral ID Status Reason Start Date Expiration Date Visits Re quested Visits Authorized [id number] 1 1 Encounter Details Date Type Department Care Team (Late st Contact Info) Description 11/26/2023 10:39 AM EST - 11/26/2023 1:54 PM EST Surgery [place] [phone] Bernard Linares MD [facility] [place] [address] NASAL, SINUS ENDOSCOPY, FRONTAL EXPLORE, INC TISSUE REMOVAL-BHANU (WRVU 6.75) Social History Tobacco Use Types Packs/Day Years [...] Sign Reading Time Taken Comments Blood Pressure 159/84 11/26/2023 1:45 PM EST Pulse 57 11/26/2023 1:45 PM EST Temperature 36.7 ??C (98.1 ??F) 11/26/2023 12:[address] Respiratory Rate 18 11/26/2023 1:45 PM EST Oxygen Saturation 97% 11/26/2023 1:45 PM EST Inhaled Oxygen Concentration - - [...] 1:30 PM Grisel Calhoun PA Otolaryngology at [facility] Arrive at: Dump Attendant Area [phone] Please dispose of unused excess opioids before your appointment or bring them with you to the appointment and we will help you dispose of them correctly. 12/23/2023 1:45 PM [facility] DX ROOM 8 XRay at [facility] Arrive at: Dump Attendant Area [phone] FOR [place] PATIENTS: Please call Radiology at [phone] if you develop an infection unrelated to this exam, or are prescribed additional antibiotics prior to your appointment. We will need to reschedule your appointment for 2 weeks after the infection has resolved or the last dose of antibiotics. Please go to Dump Attendant Area 3T ([place] Location). 01/26/2024 2:40 PM [facility] CT 1 CT Scan at [facility] Arrive at: 3Z RADIOLOGY [phone] 01/26/2024 3:40 PM Paulie Velazquez MD Pulmonology at [facility] Arrive at: Dump Attendant Area [phone] documented in this encounter Medications at Time [...] by mouth daily. 07/16/2023 FreeStyle Elma 2 [place] MiscIndications:diabete s mellitus 1 each by Other route daily. Indications: diabetes 1 each 08/03/2022 FreeStyle Elma 2 Sensor KitIndications:diabetes mellitus 1 each by Other route daily. Indications: diabetes 6 kit 3 08/03/2022 icosapent ethyL (Vascepa) 1 gram CapsuleIndications:Zayra nary artery disease, unspecified vessel or lesion type, unspecified whether angina present, unspecified whether [place] or transplanted heart Take 2 capsules by [...] this time. __ Grisel Calhoun [place] [address] 11/26/23 9:27 AM Associated attestation - Bernard [...] plan as stated above. Bernard Linares M.D. Catering Driver Rhinology, Endoscopic Sinus & Skull Base Surgery Division of Otolaryngology - Head and Neck Surgery [facility] documented in this encounter Miscellaneous Notes * Op Note - Bernard Linares MD - 11/26/2023 10:54 AM EST PATIENT NAME: Conrad Vera SERVICE: Otolaryngology SURGEON: Bernard Linares MD ANESTHESIA: General endotracheal. PREOPERATIVE DIAGNOSIS: Chronic sinusitis, nasal obstruction POSTOPERATIVE DIAGNOSIS: Same PROCEDURE: Bilateral endoscopic total ethmoidectomy and sphenoidotomy with tissue removal, CPT 09093-98 Bilateral endoscopic frontal sinusotomy, CPT 14542-21 Bilateral endoscopic maxillary antrostomy with tissue removal, CPT 97783-14 Septoplasty, CPT 93267 Out-fracture of inferior turbinates bilateral, CPT 74753-18 Stereotactic image guidance, CPT 66086 ESTIMATED BLOOD LOSS: 30 mL RETAINED ITEMS: [...] made on the left side. With the Dare elevator, the submucoperichondrial plane was identified and [...] performed on the left side. Using the Roscoe probe, the ethmoid infundibulum was gently dilated. The inferior aspect of the uncinate was removed using the back-biter. The maxillary sinus natural ostium was visualized and the Roscoe probed used to dilated the natural ostium [...] performed on the right side. Using the Roscoe probe, the ethmoid infundibulum was gently dilated. [...] 2:00 PM EDT Office [place] [address] Bernard Linares MD [facility] [place] [address] 09/07/2024 3:00 PM EST Office Visit Dermatology at [address] [address] Jeremiah Preston MD [facility] DR [address] [place] [address] documented as of this encounter Procedures Procedure [...] obstruction Stereotactic Cptr Asstd Px Cranial, Extradural (62066) Yes 11/26/2023 10:13 AM EST Chronic pansinusitis Hypertrophy of nasal turbinates Deviated nasal septum Coronary artery disease due to lipid rich plaque Nasal obstruction Fracture Nasal Inferior Turbinate Therapeutic (54860) Yes 11/26/2023 10:13 AM EST Chronic pansinusitis Hypertrophy of nasal turbinates Deviated nasal septum Coronary artery disease due to lipid rich plaque Nasal obstruction Septoplasty/Submucous Resection W/Wo Cartilage Graft (66815) Yes 11/26/2023 10:13 AM EST Chronic pansinusitis Hypertrophy of nasal turbinates Deviated nasal septum Coronary artery disease due to lipid rich plaque Nasal obstruction Nasal/Sinus Endoscopy Max Antrost W/Rmvl Tiss Max Sinus (39655) Yes 11/26/2023 10:13 AM EST Chronic pansinusitis Hypertrophy of nasal turbinates Deviated nasal septum Coronary artery disease due to lipid rich plaque Nasal obstruction Nasal/Sinus Ndsc Tot W/Sphendt W/Sphen Tiss Rmvl (62358) Yes 11/26/2023 10:13 AM EST Chronic pansinusitis Hypertrophy of nasal turbinates Deviated nasal septum Coronary artery disease due to lipid rich plaque Nasal obstruction Nasal Scopy, Explor Frontal Sinus (90176) Yes 11/26/2023 10:13 AM EST Chronic pansinusitis [...] EST) Anaerobic Culture No anaerobic organisms isolated [facility] Fluid 11/26/2023 11:1 1 AM EST 11/26/2023 11:30 AM EST Comment:Right nasal cavity Narrative Resulting Agency Comment Spec In Lab Bernard Linares MD MICROBIOLOGY - GENER AL ORDERABLES [facility] [place] [address] * (ABNORMAL) Body Fluid Culture, Aerobic (11/26/2023 11:11 AM EST) Body Fluid Culture Few Staphylococcus aureus Few normal upper respiratory edilson (A) [facility] Gram Stain Cytocentrifuge Gram Stain performed Neutrophils seen Few Gram Positive Cocci Rare Gram Positive Rods (A) [facility] Organism Staphylococcus aureus(A) [facility] Fluid 11/26/2023 11:1 1 AM EST 11/26/2023 11:30 AM EST Comment:Right nasal cavity Narrative Resulting Agency Comment Spec In Lab Organism Antibiotic Method Susceptibility Staphylococcus aureus Clindamycin VITEK 2 METHOD Resistant Staphylococcus aureus Erythromycin VITEK 2 METHOD Resistant Staphylococcus aureus Gentamicin VITEK 2 METHOD Sensitive Comment:Gentamicin i s not appropriate for [place]-therapy. Staphylococcus aureus Oxacillin VITEK 2 METHOD Sensitive [...] Linares MD MICROBIOLOGY - GENER AL ORDERABLES [facility] [place] [address] * Differential, Automated (11/26/2023 10:30 AM EST) Neutrophil % 53.4 % [facility] Neutrophil Absolute 2.76 1.70 - 6.10 x10(3)/[facility] Lymph % 31.9 % [facility] Lymphocytes Abs 1.6 0.9 - 3.2 x10(3)/[facility] Monocyte % 8.3 % [facility] Monocyte Abs 0.4 0.3 - 0.9 x10(3)/[facility] Eos % 5.2 % [facility] Eosinophils Abs 0.3 0.0 - 0.4 x10(3)/[facility] Basophil % 0.8 % [facility] Baso Absolute 0.0 0.0 - 0.1 x10(3)/[facility] Immature Gran % 0.40 % [facility] Comment: Immature granulocytes(IG's)percentage and absolute count will include metamyelocytes, myelocytes, and promyelocytes. Blood smears from CBCs yielding IG's will be scanned manually for concordance. If this scan disagrees with the automated IG or if promyelocytes are noted, a manual differential will be performed. Immature Gran Absolute 0.02 0.00 - 0.04 x10(3)/mcL [facility] Blood 11/26/2023 10:3 0 AM EST 11/26/2023 11:21 AM EST Narrative Resulting Agency Comment Spec In Lab Bernard Linares MD HEMATOLOGY ORDERABLE S [facility] [place] [address] * (ABNORMAL) Hemogram (11/26/2023 10:30 AM EST) White Blood Cell 5.2 4.0 - 9.5 x10(3)/mc L [facility] Red Blood Cell 3.68(L) 4.58 - 5.54 x10(6)/mc L [facility] Hemoglobin 11.7(L) 13.7 - 16.5 g/dL [facility] Hematocrit 33.9(L) 40.5 - 48.5 % [facility] Comment: This result has been called to ALEX MIRZA by Braeden Corea on 11 26 2023 at 1142, and has been read back. Mean Cell Volume 92.1 82.9 - 93.1 fL [facility] Mean Cell Hemoglobin 31.8 27.5 - 32.1 pg [facility] Mean Cell Hemoglobin Concentration 34.5 32.0 - 35.7 g/dL [facility] Platelet 118(L) 145 - 357 x10(3)/mc L [facility] RDW Standard Deviation 47.8(H) 36.0 - 45.0 fL [facility] RDW coefficient of variation 14.3(H) 11.4 - 13.8 % [facility] Mean Platelet Volume 10.6 7.6 - 12.9 fL [facility] NRBC% auto 0.0 % [facility] NRBC Absolute 0.000 0.000 - 0.000 x10(3)/mc L [facility] Blood 11/26/2023 10:3 0 AM EST 11/26/2023 11:21 AM EST Narrative Resulting Agency Comment Spec In Lab Bernard Linares MD HEMATOLOGY ORDERABLE S Performing Organization Address City/[facility]/ZIP Co de Phone Number [facility] [place] [address] * (ABNORMAL) POCT Glucose (11/26/2023 9:11 AM EST) Glucose, POC 209(H) 65 - 199 mg/dL [facility] Comment: Supplemental ranges: <140 mg/dL before meals <180 mg/dL all other times of the day Blood 11/26/2023 9:11 AM EST 11/26/2023 9:11 AM EST Bernard Linares MD POINT OF CARE TEST O RDERABLES Performing Organization Address [facility] Co de Phone Number [facility] [place] [address] documented in this encounter Visit Diagnoses Diagnosis Chronic pansinusitis Other chronic sinusitis Hypertrophy of nasal turbinates Deviated nasal septum Coronary artery disease due to lipid rich plaque Nasal obstruction Other diseases of nasal cavity and sinuses Chronic pansinusitis Other chronic sinusitis Hypertrophy of [...] Given 11/26/2023 1:12 PM EST 0.4 mg triamcinolone acetonide (Kenalog-40) (40 mg/mL) injection PRN, Starting on Wed11/26/23 at 1210, Until Wed11/26/23 at 1706, Intra-Operative (Intra-Procedure), Routine Given 11/26/2023 12:10 PM EST 200 mg 19- Surgical Site documented in this encounter Active and Recently [...] 1040 (New Bag - Prov ider: Nick Maldonado CRNA) PRN Medication Order 11/24/2023 11/25/2023 11/26/2023 HYDROmorphone [...] Routine documented in this encounter Care Teams Molding Technician Relationship Specialty Start Date End Date Veronica Campbell APRN [address] [place] [address] PCP - General Family Medicine 01/18/22 documented as of this encounter
--- OUTSIDE RECORDS SUMMARY | 2024-05-18 15:16 | XMS_ITS | Encounter Summary ---
[place] [address] Care Team Providers Care Hoop Punch And Coiler Operator Name Role Phone Veronica Campbell APRN Primary Care Provider [phone] Encounter Details Date Type Department Care Team (Late st Contact Info) Description 11/01/2023 Telephone [place] [phone] Rosalie Thakur RN Social History Tobacco Use Types Packs/Day Years [...] encounter Miscellaneous Notes * Telephone Encounter - Rosalie Thakur RN - 11/01/2023 11:15 AM ESTSummary: RN called patient to alert of need to discuss plan to hold blood thinning medications withprovider prior to scheduled surgery. RN called patient to alert of need to discuss plan to hold blood thinning medications with providerprior to scheduled surgery. Patient confirms will discuss provider at upcoming appointment. documented in this encounter Plan of Treatment Upcoming Encounters Date Type Department Care Team (Late st Contact Info) Description 05/24/2024 2:00 PM EDT Office [place] [address] Bernard Linares MD [facility] [place] [address] 09/07/2024 3:00 PM EST Office Visit Dermatology at [facility] [address] [place] [address] Jeremiah rPeston MD [facility] [place] [address] documented as of this encounter Visit Diagnoses Not on filedocumented in this encounter Care Teams Hoop Punch And Coiler Operator Relationship Specialty Start Date End Date Veronica Campbell APRN [address] [place] [address] PCP - General Family Medicine 01/18/22 documented as of this encounter
--- OUTSIDE RECORDS SUMMARY | 2024-05-18 15:16 | XMS_ITS | Encounter Summary ---
Author Organization [facility] Address [facility] [place] [address] Care Team Providers Care Physician Scribe Name Role Phone Veronica Campbell CHRISTEL Primary Care Provider [phone] Encounter Details Date Type Department Care Team (Latest Contact Info) Description 07/29/2023 11:52 AM EDT - 07/29/2023 2:48 PM EDT Hospital [place] [address] StewarterToro MD [facility] [place] [address] Discharge Disposition: Home Social History Tobacco Use [...] Sign Reading Time Taken Comments Blood Pressure 135/67 07/29/2023 2:20 PM EDT Pulse 70 07/29/2023 12:09 PM EDT Temperature 36.8 ??C (98.2 ??F) 07/29/2023 12:09 PM E DT Respiratory Rate 16 07/29/2023 2:20 PM EDT Oxygen Saturation 97% 07/29/2023 2:20 PM EDT Inhaled Oxygen Concentration - - [...] your doctor if you can take an wvcd-pti-bruxyjf medicine. If you think your pain medicine [...] occurs, please contact your Doctor. Please call [phone] before 8pm Mon-Fri with problems, questions or concerns. If you call after 8pm or on weekends, call the Hospital at [phone] and ask to speak to the Black Leather Buffer cotton ginner and the rolled oats mill operator will contact that person for you. When should you call for help? Call [phone] anytime you think you may need emergency [...] any problems. Where can you learn more? [facility] View your After Visit Summary and more online at [email or web address] If you would like to provide feedback about your hospital experience, please call the Office of Patient and Family Relations at . If you have received this After Visit Summary in error, please immediately return it in person to the department, or notify the [facility] Privacy Office by calling toll free at between the hours of 8AM and 5PM to arrange for our retrieval of the documents at no cost to you. Content Version: 12.2 ?? [phone] [employer]. Care instructions adapted under license by [facility]. If you have questions about a medical condition or this instruction, always ask your healthcare professional. [employer] disclaims any warranty or liability for your [...] by mouth daily. 07/16/2023 FreeStyle Elma 2 [place] MiscIndications:diabet es mellitus 1 each by Other route daily. Indications: diabetes 1 each 08/03/2022 FreeStyle Elma 2 Sensor KitIndications:diabete s mellitus 1 each by Other route daily. Indications: diabetes 6 kit 3 08/03/2022 icosapent ethyL (Vascepa) 1 gram CapsuleIndications:Cor onary artery disease, unspecified vessel or lesion type, unspecified whether angina present, unspecified whether [place] or transplanted heart Take 2 capsules by [...] times daily (with meals). 12/12/2010 Dexcom G6 Store Host Misc 1 each by [facility].(Non-Drug; Combo Route) route continuous. Use as directed for continuous glucose monitoring. E11.9 1 each 08/06/2022 11/23/2023 Dexcom G6 Sensor Device 1 each by [facility].(Non-Drug; Combo Route) route continuous. Use as directed for continuous glucose monitoring. Change every 10 days. E11.9 9 each 3 08/06/2022 11/23/2023 Dexcom G6 Transmitter Device 1 each by [facility].(Non-Drug; Combo Route) route continuous. Use as directed [...] Section of Pulmonary & Critical Care Pager: [phone] documented in this encounter Miscellaneous Notes * [...] and moderate thin/clear secretions bilaterally. Bronchoalveolar Lavage (77751): The bronchoscope was wedged into the superior segment of the left lower lobe (LB6). A total of 100 mL of saline was instilled and a total of 25 mL of cellular fluid was aspirated. This was sent for analysis. EBUS-TBNA (3 sites): The Olympus EBUS ([id number]) scope was inserted, lymph node inspection undertaken [...] Core Biopsies (1 sites): The Olympus EBUS ([id number]) scope was inserted and inspection undertaken. The [...] time to complete (modifier 22). Therapeutic Suctioning (01377): A significant portion of operative time was [...] Section of Pulmonary & Critical Care Pager: [phone] documented in this encounter Plan of Treatment Upcoming Encounters Date Type Department Care Team (Late st Contact Info) Description 05/24/2024 2:00 PM EDT Office [place] [address] Bernard Linares MD [facility] [place] [address] 09/07/2024 3:00 PM EST Office Visit Dermatology at [facility] [address] [place] [address] Jeremiah Preston MD [facility] DR YARA [place] [address] documented as of this encounter Procedures Procedure Name Priority Date/Time Associated Diagnosis Comments B-CELL CLONALITY STUDIES Routine 023 5:11 PM EST POCT GLUCOSE Routine 07/29/2023 2:16 PM EDT NON-TAPE CALENDER FINAL REPORT Routine 07/29/2023 1:37 PM EDT NON-TAPE CALENDER FINAL REPORT Routine 07/29/2023 1:37 PM EDT NON-TAPE CALENDER FINAL REPORT Routine 07/29/2023 1:37 PM EDT [...] CYTOMETRY (BLOOD) Routine 07/29/2023 1:10 PM EDT NON-TAPE CALENDER FINAL REPORT Routine 07/29/2023 1:10 PM EDT [...] CYTOPATHOLOGY NON-GYNECOLOGICAL Routine 07/29/2023 1:06 PM EDT [facility] Ebus Guided Sampl 3/> Node Station/Strux ([id number]) 07/29/2023 12:51 PM EDT Lymphadenopathy POCT GLUCOSE Routine 07/29/2023 12:25 PM EDT documented in this encounter Results * B-cell clonality studies (08/02/2023 5:11 PM EST) B-cell Result B-cell polyclonal [facility] B-cell Interp B-cell Receptor Clonality Assay INDICATION FOR STUDY: ??Concern for B-cell neoplasm ANALYSIS: ??Sequence analysis of IGH FR1/FR2/FR3 regions for rearrangements SPECIMEN: ??[id number], A1 RESULTS: ??NEGATIVE sequencing results for clonality in IGH. INTERPRETATION: No clonal IGH sequences were identified in this study. METHODS: Genomic DNA was extracted from whole blood or bone marrow, and analyzed with the TableGrabber IGH (FR1, FR2, & FR3) Assays. DNA [...] Genomics and Advanced Technology (CGAT) Laboratory at [facility]. [facility] Tissue 08/02/2023 5:11 PM EST 08/04/2023 1:59 PM EST Narrative Resulting Agency Comment Spec In Lab Toro Gonzales MD MOLECULAR ORDERABLES Performing Organization Address City/[facility] [address]/ZIP Co de Phone Number [facility] [address] * POCT Glucose (07/29/2023 2:16 PM EDT) Glucose, POC 126 65 - 199 mg/dL [facility] Comment: Supplemental ranges: <140 mg/dL before meals <180 mg/dL all other times of the day Blood 07/29/2023 2:16 PM EDT 07/29/2023 2:16 PM EDT Toro Gonzales MD POINT OF CARE TEST O RDERABLES Performing Organization Address City/[facility] [address]/ZIP Co de Phone Number [facility] [address] * Non-Professional Poker Player Final Report (07/29/2023 1:37 PM EDT) Diagnosis Discussion [id number] ? Location: 4T; EA08; A The signing pathologist has (i) examined the relevant preparation(s) for the specimen(s) and (ii) rendered or confirmed the diagnosis(es). . ? Non-Professional Poker Player Final DIAGNOSIS See Discussion Electronically signed by: ?Denilson Titus DO Verified: ??08/04/2023 19:36 ??Pathologist Performed at: ??-[facility] Dept. of Pathology, [place] [address] Hemodialysis Technician: Filipe Hoang MD, AP, ??CLIA Certificate: [id number] DISCUSSION Lymph node: station 4R (EBUS-guided FNA) [...] were developed by the clinical laboratory at [facility]. Antibody specificities have been verified on tissues [...] Preparation: Cell Block 1. 08/04/2023 7:36 PM [facility] LYMPH NODE SPECIMEN / Unknown 07/29/2023 1:37 PM EDT 07/29/2023 1:37 PM EDT Toro Gonzales MD PATHOLOGY/CYTOLOGY O RDERABLES [facility] [place] [address] [facility] [place] [address] * Non-Professional Poker Player Final Report (07/29/2023 1:37 PM EDT) Diagnosis Discussion [id number] ? Location: 4T; EA08; A The signing pathologist has (i) examined the relevant preparation(s) for the specimen(s) and (ii) rendered or confirmed the diagnosis(es). . ? Non-Professional Poker Player Final DIAGNOSIS See Discussion Electronically signed by: ?Tacho FREEMAN Denilson Watson Verified: ??08/02/2023 11:35 ??Pathologist Performed at: ??-[facility] Dept. of Pathology, [place] [address] Hemodialysis Technician: Filipe Hoang MD, AP, ??CLIA Certificate: [id number] DISCUSSION Lymph node: station 11R (EBUS-guided FNA) - - Lymphoid tissue without overt evidence of lymphoma (see Comment). Comment: Fragments of lymphoid tissue and cartilage present; more extensive testing done of more adequate samples (see [id number] and [id number]). (Cell block was examined.) CLINICAL INFORMATION Specimen [...] Cell Block 1. 08/02/2023 11:35 AM EST [facility] LYMPH NODE SPECIMEN / Unknown 07/29/2023 1:37 PM EDT 07/29/2023 1:37 PM EDT Toro Gonzales MD PATHOLOGY/CYTOLOGY O RDERABLES [facility] [place] [id number] [facility] [place] [address] * Non-Professional Poker Player Final Report (07/29/2023 1:37 PM EDT) Diagnosis Discussion [id number] ? Location: 4T; EA08; A The signing pathologist has (i) examined the relevant preparation(s) for the specimen(s) and (ii) rendered or confirmed the diagnosis(es). . ? Non-Professional Poker Player Final DIAGNOSIS See Discussion Electronically signed by: ?Denilson Titus DO Verified: ??08/02/2023 11:32 ??Pathologist Performed at: ??-[facility] Dept. of Pathology, [place] [address] Hemodialysis Technician: Filipe Hoang MD, FCAP, ??CLIA Certificate: [id number] DISCUSSION Lymph node: station 7 (EBUS-guided FNA) - - Reactive follicular hyperplasia (see Comment) Comment: Sections show follicles with well-formed germinal centers and intact mantle cuffs. Immunostains show an intact immunoarchitechture (see Immunohistochemistry Studies). Concurrent flow cytometry ([id number]) performed on the surgical specimen from this [...] were developed by the clinical laboratory at [facility]. Antibody specificities have been verified on tissues [...] Cell Block 1. 08/02/2023 11:32 AM EST [facility] LYMPH NODE SPECIMEN / Unknown 07/29/2023 1:37 PM EDT 07/29/2023 1:37 PM EDT Toro Gonzales MD PATHOLOGY/CYTOLOGY O LEIF Performing Organization Address City/[facility] [address]/ZIP Co de Phone Number [facility] [place] [address] [facility] [place] [address] * Cytopathology Non-Gynecological (07/29/2023 1:37 PM EDT) AP Specimen 07/29/2023 1:37 PM EDT 07/29/2023 1:37 PM EDT Narrative [facility] - 07/29/2023 1:37 PM EDT Specimen requisition ordered. ??Separate Pathology report to follow Toro Gonzales MD PATHOLOGY/CYTOLOGY O LEIF Performing Organization Address City/[facility] [address]/ZIP Co de Phone Number [facility] [place] [address] * Cytopathology Non-Gynecological (07/29/2023 1:37 PM EDT) AP Specimen 07/29/2023 1:37 PM EDT 07/29/2023 1:37 PM EDT Narrative [facility] - 07/29/2023 1:37 PM EDT Specimen requisition ordered. ??Separate Pathology report to follow Toro Gonzales MD PATHOLOGY/CYTOLOGY O LEIF Performing Organization Address [facility] [address]/[facility] Co de Phone Number [facility] [place] [address] * Cytopathology Non-Gynecological (07/29/2023 1:37 PM EDT) AP Specimen 07/29/2023 1:37 PM EDT 07/29/2023 1:37 PM EDT Narrative [facility] - 07/29/2023 1:37 PM EDT Specimen requisition ordered. ??Separate Pathology report to follow Toro Gonzales MD PATHOLOGY/CYTOLOGY O LEIF Performing Organization Address [facility] [place] [address] * Specimen to Pathology (07/29/2023 1:36 PM EDT) AP Specimen 07/29/2023 1:36 PM EDT 07/29/2023 1:36 PM EDT Narrative [facility] - 07/29/2023 1:36 PM EDT Specimen requisition ordered. ??Separate Pathology report to follow Toro Gonzales MD PATHOLOGY/CYTOLOGY O LEIF Performing Organization Address [facility] [place] [address] * Flow Cytometry Report (07/29/2023 1:35 PM EDT) Pathologist [facility] Flow Cytometry Report [id number] ? Location: 4T; EA08; A The signing [...] malignancies. Correlation with pending morphology (case [id number]) from the biopsy is recommended. Electronically signed by: ?Denilson Titus DO Verified: ??08/02/2023 11:28 ??Pathologist Performed at: ??-[facility] Dept. of Pathology, [place] [address] Hemodialysis Technician: Filipe Hoang MD, FCAP, ??CLIA Certificate: [id number] DISCUSSION Cell viability was ~54% as assessed by 7-AAD exclusion. The T-lymphocytes, B- lymphocytes and CD56+ NK cells comprise approx 59%, 39%, 3% of the gated population, respectively. The CD19 positive B-cells have a polytypic expression of surface immunoglobulin light chain (Deer:Lambda ratio at 1.6). The T-cells are an admixture of CD4+ and CD8+ T lymphocytes (ratio of 5.6). No loss or atypical intensity distributions are seen for any unger T antigen (CD2, 3, 4+8, 5, 7). There is no increase in ZR61-okawzkwl/CD3-neg NK cells. Flow analysis is an ancillary study. A definite diagnosis requires correlation with the morphologic features of this process and if necessary, correlation with other ancillary studies like immunohistochemistry, enzyme cytochemistry and/or cyto/ molecular genetics. This test was developed and its performance characteristics determined by the Clinical Flow Cytometry Laboratory at [facility]. It has not been cleared or approved [...] high complexity clinical laboratory testing. SPECIMEN PROCESSING [id number] Cells for immunophenotypic analysis were derived from [...] male with mediastinal lymphadenopathy, splenomegaly and fatigue. [facility] 07/29/2023 1:35 PM EDT Toro Gonzales MD PATHOLOGY/CYTOLOGY O RDERABLES Performing Organization Address [facility] [address]/[facility] de Phone Number [facility] [place] [address] * Immunophenotyping Flow Cytometry (07/29/2023 1:35 PM EDT) Immunophenotyping Flow See Comment [facility] Comment: When completed by the Pathologist, the Flow Cytometry Report ([id number]) will display under the Pathology Results section within eDH. Other 07/29/2023 1:35 PM EDT 07/29/2023 1:50 PM EDT Narrative Resulting Agency Comment Spec In Lab Toro Gonzales MD HEMATOLOGY ORDERABLE S Performing Organization Address [facility] [place] [address] * Non-Professional Poker Player Final Report (07/29/2023 1:10 PM EDT) Diagnosis Discussion [id number] ? Location: 4T; EA08; A The signing pathologist has (i) examined the relevant preparation(s) for the specimen(s) and (ii) rendered or confirmed the diagnosis(es). . ? Non-Professional Poker Player Final DIAGNOSIS See Discussion Electronically signed by: ?Foster [place], Khoi Verified: ??08/02/2023 13:27 ??Pathologist Performed at: ??-[facility] Dept. of Pathology, [place] [address] Hemodialysis Technician: Filipe Hoang MD, [facility], ??IA Certificate: [id number] DISCUSSION Bronchial alveolar lavage: Alveolar macrophages, respiratory epithelial cells, reactive pneumocytes, and mixed ??inflammatory cells are present. No overtly cytologically malignant cells seen. The material might not be fully metals sales representative of the target lesion. Clinical and [...] 1; Cell Block 1. 08/02/2023 1:27 PM [facility] BRONCHIAL STRUCTURE / Unknown 07/29/2023 1:10 PM EDT 07/29/2023 1:10 PM EDT Toro Gonzales MD PATHOLOGY/CYTOLOGY O RDERABLES [facility] [address] [place] [address] * Surgical Pathology Report (07/29/2023 1:10 PM EDT) Final Diagnosis [id number] ? Location: 4T; EA08; A The signing [...] Verified: ??08/23/2023 9:45 ?? Pathologist Performed at: ??-[facility] Dept. of Pathology, [place] [address] Hemodialysis Technician: Filipe Hoang MD, FCAP, ??CLIA Certificate: [id number] ?Surgical Pathology DIAGNOSIS Lymph node, station 7, biopsy - - Reactive follicular hyperplasia (see Discussion) Electronically signed by: ?Denilson Titus DO Verified: ??08/02/2023 11:48 ??Pathologist Performed at: ??-[facility] Dept. of Pathology, [place] [address] Hemodialysis Technician: Filipe Hoang MD, FCAP, ??CLIA Certificate: [id number] DISCUSSION Sections show follicles with well-formed germinal centers and intact mantle cuffs. Immunostains show an intact ?? immunoarchitecture ??(see Additional Studies). Concurrent flow cytometry ([id number]) performed on the surgical specimen from this [...] were developed by the clinical laboratory at [facility]. Antibody specificities have been verified on tissues [...] labeled A1. ??pps 08/23/2023 9:45 AM EST [facility] LYMPH NODE SPECIMEN / Unknown 07/29/2023 1:10 PM EDT 07/29/2023 1:10 PM EDT Toro Gonzales MD PATHOLOGY/CYTOLOGY O RDERABLES [facility] [address] [place] [address] * Flow Cytometry Report (07/29/2023 1:10 PM EDT) Flow Cytometry Report [id number] ? Location: 4T; 08; A The signing pathologist has (i) examined the relevant preparation(s) for the specimen(s) and (ii) rendered or confirmed the diagnosis(es). . ?Flow Cytometry DIAGNOSIS BRONCHIAL ALVEOLAR LAVAGE FLUID - FLOW CYTOMETRY: - The T-cell CD4:CD8 ratio is ~1.37:1, limited study (see Discussion). Electronically signed by: ?Denilson Titus DO Verified: ??07/31/2023 9:26 ?? Pathologist Performed at: ??-[facility] Dept. of Pathology, [place] [address] Hemodialysis Technician: Filipe Hoang MD, [facility], ??CLIA Certificate: [id number] DISCUSSION Cell viability in the UR06-ixkhzc low-SSC histogram region was 67% as assessed [...] by the Clinical Flow Cytometry Laboratory at [facility]. It has not been cleared or approved [...] high complexity clinical laboratory testing. SPECIMEN PROCESSING [id number] Cells for immunophenotypic analysis were derived from [...] sarcoidosis and carcinoma. BAL for CD4:CD8 ratio. [facility] 07/29/2023 1:10 PM EDT Toro Gonzales MD PATHOLOGY/CYTOLOGY O RDERABLES [facility] [place] [address] * Immunophenotyping Flow Cytometry (07/29/2023 1:10 PM EDT) Immunophenotyping Flow See Comment [facility] Comment: When completed by the Pathologist, the Flow Cytometry Report ([id number]) will display under the Pathology Results section within eD. Other 07/29/2023 1:10 PM EDT 07/29/2023 1:23 PM EDT Narrative Resulting Agency Comment Spec In Lab Toro Gonzales MD HEMATOLOGY ORDERABLE S Performing Organization Address City/[facility] [address]/[place] [address] * Cell Count, Bronchoalveolar Lavage (07/29/2023 1:10 PM EDT) Color BAL Colorless [facility] Appearance, BAL Slightly Hazy [facility] NUC, BAL Count 46 mcL [facility] Seg BAL 8 % [facility] Lymph, BAL 22 % [facility] Macrophage BAL 58 % [facility] Eos, BAL 12 % [facility] Total Cells, BAL 200 Cells [facility] Bronchial Alveolar Lavage 07/29/2023 1:10 PM EDT 07/29/2023 1:23 PM EDT Narrative Resulting Agency Comment Spec In Lab Toro Gonzales MD BODY FLUIDS AND STOO LS ORDERABLES Performing Organization Address City/[facility] [address]/ZIP Co de Phone Number [facility] [place] [address] * Calcofluor White Stain (07/29/2023 1:07 PM EDT) Calcofluor Stain Calcofluor White Preparation: Negative [facility] Bronchial Alveolar Lavage 07/29/2023 1:07 PM EDT 07/29/2023 1:31 PM EDT Narrative Resulting Agency Comment Spec In Lab Toro Gonzales MD MICROBIOLOGY - GENER AL ORDERABLES Performing Organization Address City/[facility] [address]/ZIP Co de Phone Number [facility] [place] [address] * Fungus culture (07/29/2023 1:07 PM EDT) Fungus Culture No Fungus isolated [facility] Bronchial Alveolar Lavage 07/29/2023 1:07 PM EDT 07/29/2023 1:31 PM EDT Narrative Resulting Agency Comment Spec In Lab Toro Gonzales MD MICROBIOLOGY - GENER AL ORDERABLES Performing Organization Address City/[facility] [address]/[facility] Co de Phone Number [facility] [place] [address] * Lower Respiratory Culture Bronchial Alveolar Lavage (07/29/2023 1:07 PM EDT) Lower Respiratory Culture No growth [facility] Gram Stain Few Neutrophils seen No microorganisms seen. [facility] Bronchial Alveolar Lavage 07/29/2023 1:07 PM EDT 07/29/2023 1:31 PM EDT Narrative Resulting Agency Comment Spec In Lab Toro Gonzales MD MICROBIOLOGY - GENER AL ORDERABLES Performing Organization Address [facility] Co de Phone Number [facility] [place] [address] * AFB culture Bronchial Alveolar Lavage (07/29/2023 1:07 PM EDT) Acid Fast Bacilli Culture No Acid Fast Bacilli isolated If active tuberculosis is suspected, the patient should be on [employer] PRECAUTIONS. Call Infection Prevention for assistance if needed. [facility] Acid Fast Stain No Acid Fast Bacilli seen [facility] Bronchial Alveolar Lavage 07/29/2023 1:07 PM EDT 07/29/2023 1:31 PM EDT Narrative Resulting Agency Comment Spec In Lab Toro Gonzales MD MICROBIOLOGY - GENER AL ORDERABLES Performing Organization Address City/[facility] [address]/ZIP Co de Phone Number [facility] [place] [address] * Cytopathology Non-Gynecological (07/29/2023 1:06 PM EDT) AP Specimen 07/29/2023 1:06 PM EDT 07/29/2023 1:06 PM EDT Narrative [facility] [facility] - 07/29/2023 1:06 PM EDT Specimen requisition ordered. ??Separate Pathology report to follow Toro oGnzales MD PATHOLOGY/CYTOLOGY O LEIF [facility] [place] [address] * POCT Glucose (07/29/2023 12:25 PM EDT) Glucose, POC 140 65 - 199 mg/dL [facility] Comment: Supplemental ranges: <140 mg/dL before meals <180 mg/dL all other times of the day Blood 07/29/2023 12:2 5 PM EDT 07/29/2023 12:25 PM EDT Toro Gonzales MD POINT OF CARE TEST O LEIF Performing Organization Address [facility] [address]/[facility] Co de Phone Number [facility] [place] [address] documented in this encounter Visit Diagnoses Not on filedocumented in this encounter Administered Medications Inactive Administered [...] CRNA) documented in this encounter Care Teams Physician Scribe Relationship Specialty Start Date End Date Veronica Campbell APRN [address] [place] [address] PCP - General Family Medicine 01/18/22 documented as of this encounter
--- OUTSIDE RECORDS SUMMARY | 2024-05-18 15:16 | XMS_ITS | Encounter Summary ---
Author Organization Formerly [facility] [place] [address] Care Team Providers Care Travel Professional Name Role Phone Veronica Campbell CHRISTEL Primary Care Provider [phone] Encounter Details Date Type Department Care Team (Late st Contact Info) Description 11/24/2023 [place] [address] Heidy Ibarra PA [facility] [place] [address] Social History Tobacco Use Types Packs/Day Years [...] 2:00 PM EDT Office [place] [phone] Bernard Linares MD [facility] [place] [address] 09/07/2024 3:00 PM EST Office Visit Dermatology at [facility] [address] [place] [address] Jeremiah Preston MD [facility] [address] [place] [address] documented as of this encounter Visit Diagnoses Not on filedocumented in this encounter Care Teams Travel Professional Relationship Specialty Start Date End Date Veronica Campbell APRN [address] [place] [address] PCP - General Family Medicine 01/18/22 documented as of this encounter
--- OUTSIDE RECORDS SUMMARY | 2024-05-18 15:16 | XMS_ITS | Encounter Summary ---
[place] [address] Care Team Providers Care Air Export Operations Agent Name Role Phone Veronica Campbell APRN Primary Care Provider [phone] Reason for Referral * Consultation (Routine) - Authorized Specialty Diagnoses / Procedures Referred By Jason garcia Referred To Contact Orthopaedics Diagnoses Nontraumatic incomplete tear of rotator cuff, unspecified laterality R RTC Veronica Campbell APRN [address] [place] [address] [facility] [place] [facility] [address] [place] [id number] Referral ID Status Reason Start Date Expiration Date Visits Requested Visits Authorized [id number] Authorized Consult, Test & Treat PCP Updated and/or Approved 11/08/2023 11/07/2024 6 6 Encounter Details Date Type Department Care Team (Latest Contact Info) Description 11/08/2023 Transcribe Orders eDH Incoming Referrals [phone] Veronica Campbell APRN [address] [place] [address] Nontraumatic incomplete tear of rotator cuff, unspecified laterality Social History Tobacco Use Types Packs/Day Years [...] 2:00 PM EDT Office [place] [address] Bernard Linares MD [facility] [place] [address] 09/07/2024 3:00 PM EST Office Visit Dermatology at [facility] [address] [place] [address] Jeremiah Preston MD [facility] [place] [address] Scheduled Referrals Name Type Priority Associated Diagnoses Orde r Schedule Referral to Orthopaedics Outpatient Referral Routine Nontraumatic incomplete tear of rotator cuff, unspecified laterality Ordered: 11/08/2023 documented as of this encounter Visit Diagnoses Diagnosis Nontraumatic incomplete tear of rotator cuff, unspecified laterality documented in this encounter Care Teams Air Export Operations Agent Relationship Specialty Start Date End Date Veronica Campbell APRN [address] [place] [address] PCP - General Family Medicine 01/18/22 documented as of this encounter
--- OUTSIDE RECORDS SUMMARY | 2024-05-18 15:16 | XMS_ITS | Encounter Summary ---
Author Organization [facility] Address [facility] [place] [address] Care Team Providers Care Poll Watcher Name Role Phone Adrian Veronica CHRISTEL Primary Care Provider [phone] Reason for Visit * Auth/Cert (Routine) Specialty [...] (WRVU 3.18) MODIFIER,STEALTH 2,KINEVO Bernard Linares MD [facility] [place] [address] [facility] Referral ID Status Reason Start Date Expiration Date Visits Re quested Visits Authorized [id number] 1 1 Encounter Details Date Type Department Care Team (Late st Contact Info) Description 11/26/2023 10:11 AM EST Anesthesia Event [place] [address] Luzma Bolden MD [facility] DR [place] [address] Fabiola Petty [place] [address] Anesthesia Record Procedure Summary Procedure Name Responsible Anesthesiologist Anesthesia Start Time Anesthesia Stop Time NASAL, SINUS ENDOSCOPY, FRONTAL EXPLORE, INC TISSUE REMOVAL-BHANU (WRVU 6.75) (Bilateral: Nose) Luzma Bolden MD 11/26/23 1011 11/26/23 1258 Events Date Time Event Comment 11/26/2023 1011 1011 AN Verify 1011 Start 1013 An Start Data 1021 An Induction 1023 An Intubation 1025 Anesthesia Ready 1025 an kasandra now Table turned 18 0 degrees 1026 Quick Note CBC drawn from second PIV that was placed s/p induction and sent to lab psr. 1049 Procedure Start 1145 Quick Note Lab called with CBC results- WBC 5.17, H/H 11.7/33.9, PLT 118. Surgeon notified of results. 1242 Extubation/LMA Out Pharynx s uctioned. OPA red 100mm Guedel present. 1247 an stop data 1258 Recovery or ICU Handoff Cherelle ent care was transferred to the destination unit staff after review of the patient's medical history, current anesthetic/surgical status and plan, according to the Provider Handoff Checklist. 1258 Stop Meds Name Total fentaNYL 100 mcg IV Lidocaine 100 mg Propofol 200 mg Rocuronium 80 mg Ondansetron 4 mg succinylcholine 100 mg propofol INF 943.19 mg ceFAZolin (Ancef) 2 g vial a ttach to sodium chloride 0.9% 100 mL Mini-Bag Plus 2 g HYDROmorphone 0.6 mg dexmedeTOMIDine 8 mcg sugammadex 200 mg lactated ringers 0 mL lactated ringers 0 mL * Agents Name O2 * Blood No blood administrations on file. Lines, Drains, and Airways Type Details Placement Removal Incision 11/26/23; nose (SINUS) 11/26/23 0000 by Michelle Moeller RN PIV 11/26/23; 0922; gduc-zzl-vuibxv catheter system; 20 gauge, 1 in length; metacarpal vein (top of hand), left; Serge Joshi RN; distraction, intradermal injection; 11/26/23; 1453 11/26/23 0922 by Juliet Walsh RN 11/26/23 1453 by Maricruz Biggs RN ETT Mask Ventilation: No t Attempted (0); ETT Type: Cuffed, Oral; ETT Size: 7.5 mm; Mac Blade: 3; Notes: Asleep, Pre-O2, RSI, Stylette; Attempts: 1; Laryngoscopy Grade: 2; ETT Placement Verified By: Auscultation, Capnometry, Visual; Secured at Teeth: 21 cm; Inserted by: SHERRILL Hobbs; Removal Date: 11/26/23; Removal Time: 1242 11/26/23 1023 by Nick Maldonado CRNA 11/26/23 1242 by Nick Maldonado, LOGGING WORKER PIV 11/26/23; 1025; avtx-qrw-pjblik catheter system; 18 gauge; cephalic vein (lateral side of arm), right; Anatomical Landmarks; SHERRILL Hobbs; other (see comments) (placed s/p induction); 11/26/23; 1454 11/26/23 1025 by Nick Maldonado LOGGING WORKER 11/26/23 1454 by Maricruz Biggs RN documented in this encounter Social History Tobacco Use Types Packs/Day Years [...] on file documented as of this encounter OR Notes * Anesthesia Postprocedure Evaluation - Luzma Bolden MD - 11/26/2023 3:05 PM EST Department of Anesthesiology Post-procedure Note Patient: Conrad Vera Procedure Summary Date: 11/26/23 Room / Location: [facility] OR [facility] MAIN OR Anesthesia Start: 101 Anesthesia Stop: 1258 Procedures: NASAL, SINUS ENDOSCOPY, FRONTAL EXPLORE, INC TISSUE REMOVAL-BHANU (WRVU 6.75) (Bilateral: Nose) NASAL,SINUS ENDOSCOPY,TOTAL ETHMOIDECTOMY INCLD SPHENOIDOTOMY W/ REMOVAL OF TISSUE (WRVU 8.48) (Bilateral: Nose) NASAL, SINUS ENDOSCOPY, REMOVE TISSUE MAXILLARY SINUS, BHANU (WRVU 4.68) (Bilateral: Nose) SEPTOPLASTY OR SMR, W/ OR W/O CARTILAGE SCORING, CONTOURING OR REPLACEMENT W/ GRAFT (WRVU 7.01) (Nose) FRACTURE NASAL INFERIOR TURBINATE(S), THERAPEUTIC-BHANU (WRVU 1.31) (Bilateral: Nose) STEREOTACTIC COMPUTER-ASSTD NAVIGATIONAL CRANIAL EXTRADURAL (WRVU 3.18) MODIFIER,STEALTH 2,KINEVO Diagnosis: Chronic pansinusitis Hypertrophy of nasal turbinates Deviated nasal septum Coronary artery disease due to lipid rich plaque Nasal obstruction (chronic pansinusitis, nasal obstruction, deviated nasal septum) Surgeons: Bernard Linares MD Responsible Provider: Luzma Bolden MD Anesthesia Type: general ASA Status: 3 All Anesthesia Providers: Anesthesiologist: Luzma Bolden MD LOGGING WORKER: Nick Maldonado CRNA Student Nurse [employer] Services Librarian: Otilia Reddy Vitals Value Taken Time BP 153/69 11/26/23 1440 Temp 36.6 ??C (97.9 ??F) 11/26/23 1440 Pulse 56 11/26/23 1440 Resp 12 11/26/23 1440 SpO2 96 % 11/26/23 1440 Pain Level 3 11/26/23 1440 Patient Location: PACU/[facility] Level of Consciousness: Conscious but Sleepy Pain Management: Satisfactory Analgesia PONV: None Cardiovascular Status: At Baseline Respiratory Status: At Baseline Postoperative Fluid Status: Intravascular EUvolemia Possible Anesthetic Complications: NONE apparent at time of evaluation Final Primary Anesthesia Type: General (The anesthetic type performed was the same as planned.) Comments: * Anesthesia Preprocedure Evaluation - Luzma Bolden MD - 10/29/2023 3:33 PM EST Images from the original note were not included. Pre-Anesthesia Evaluation for: Conrad Vera a 68 y.o. male. Procedure(s): NASAL, SINUS ENDOSCOPY, FRONTAL EXPLORE, INC TISSUE REMOVAL-BHANU (WRVU 6.75) NASAL,SINUS ENDOSCOPY,TOTAL ETHMOIDECTOMY INCLD SPHENOIDOTOMY W/ REMOVAL OF TISSUE (WRVU 8.48) NASAL, SINUS ENDOSCOPY, REMOVE TISSUE MAXILLARY SINUS, BHANU (WRVU 4.68) SEPTOPLASTY OR SMR, W/ OR W/O CARTILAGE SCORING, CONTOURING OR REPLACEMENT W/ GRAFT (WRVU 7.01) FRACTURE NASAL INFERIOR TURBINATE(S), THERAPEUTIC-BHANU (WRVU 1.31) STEREOTACTIC COMPUTER-ASSTD NAVIGATIONAL CRANIAL EXTRADURAL (WRVU 3.18) MODIFIER,STEALTH 2,KINEVO Patient Active Problem List Diagnosis Date Noted ??? SOB (shortness of breath) 01/23/2022 ??? CAD (coronary artery disease) 08/15/2015 ??? Hypertension 08/15/2015 ??? Gout 08/15/2015 ??? Peptic disease 08/15/2015 ??? Diabetes mellitus 08/15/2015 ??? Kidney stones 08/15/2015 ??? Obesity 08/15/2015 ??? Memory loss 08/15/2015 ??? Coronary artery disease involving coronary bypass graft 08/15/2015 ??? Diverticular disease 08/15/2015 No past medical history on file. Past Surgical History: Procedure Laterality Date ? ? PRG CATH PLMT LEFT HEART CATH & ARTS W/INJ & ANGIO IMG S&I N/A 02/24/2022 CORONARY ANGIOGRAPHY; W LHC,POSSIBLE PCI performed by Pablito Hunt MD at [facility] CATH LABS ? ? [facility] 3/> NODE STATION/STRUX N/A 07/29/2023 BRONCH, W ENDOBRONCHIAL ULTRASOUND (EBUS) GUIDED SAMPLING, 3+ NODES (WRVU 4.96) performed by Toro Gonzales MD at [facility] ENDOSCOPY ??? PRO COLONOSCOPY, DIAGNOSTIC N/A 09/02/2015 COLONOSCOPY, DIAGNOSTIC performed by Roula Saez MD at [facility] ENDOSCOPY Social History Tobacco Use ??? Smoking status: Former Packs/day: 1.50 Years: 15.00 Additional pack years: 0.00 Total pack years: 22.50 Types: Cigarettes Quit date: 09/02/1985 Years since quittin.1 ??? Smokeless tobacco: Never Substance Use Topics ??? Alcohol use: Not Currently Comment: rare Social History Substance and Sexual Activity Drug Use No Allergies Allergen Reactions ??? Red Blood Cells Antibodies-Difficult to Crossmatch DO NOT REMOVE Please contact the Blood Bank at [phone] for questions. ??? Sulfamethoxazole Other (See Comments) ??? Trimethoprim Other (See Comments) ??? Colchicine ??? Metronidazole CIS - Rash, CIS - Rash, CIS - Rash, CIS - Rash, CIS - Rash ??? Opioids - Morphine Analogues CIS - causes GI shutdown, CIS - causes GI shutdown, CIS - causes GI shutdown, CIS - causes GI shutdown, CIS - causes GI shutdown ??? Opioids-Meperidine And Related CIS - causes GI shutdown, CIS - causes GI shutdown, CIS - causes GI shutdown, CIS - causes GI shutdown, CIS - causes GI shutdown ??? Opioids-Methadone And Related CIS - causes GI shutdown, CIS - causes GI shutdown, CIS - causes GI shutdown, CIS - causes GI shutdown, CIS - causes GI shutdown Medications: MAR and/or home medications have been reviewed. Physical Exam: Preprocedure Vitals Current as of 10/29/23 1533 No BP, pulse, respiration, SpO2, or temperature recorded. Height: 177.8 cm (5' 10) (10/25/23) Weight: 97.1 kg (214 lb) (10/25/23) BMI: 30.7 IBW: 73 kg (160 lb 15 oz) Airway Assessment: Mallampati: II TM distance: >3 FB Neck ROM: full Cardiovascular Assessment: Rhythm: regular Rate: normal system normal Pulmonary Assessment: unlabored breathing pulmonary exam normal Dental Assessment: Misc Assessment: Patient is wearing No contact(s). IV access: Peripheral line Last Filed Perioperative Cognitive Screening None Anesthesia Plan: ASA 3 general, with a(n) intravenous induction PCC evaluation noted GETa; RSI; possible A-line; PIV Region - Other Informed Consent: Anesthetic plan and risks discussed with patient. Plan discussed with LOGGING WORKER. Anesthesia Screening Note: Date and Time of Entry: 10/29/2023 3:33 PM Entered By: Fabiola Petty APRN Reason for Evaluation: Surgeon Request Other Reason: CAD history prior CABG, recent PCI (stenting x5) Screening Visit Type: Workup Review Only (NO interview) Additional/Outside Records Requested? Did not request medical information from outside organization. Findings, Assessment and Plan: Findings, Assessment and Plan:?Conrad Vera is a 68 year oldBMI 31 whose pertinent medical records were reviewed prior to sinus surgery with Dr. Linares for chronic rhinosinusitis. ?? Medical History: diabetes (glipizide, metformin, Trulicity A1C 7.1 from 10/20/23), gout (allopurinol), HTN (losartan), HLD (atorvastatin), hypothyroidism (levothyroxine), GERD (esomeprazole), CAD (5 stents 2021, CABGx3 2009, NTG), anemia and thrombocytopenia Last cardiology note from Dr. Hunt from 06/02/23 reviewed. Patient complained of anasarca at that time. Per this note, no clear cardiac cause for symptoms. TTE from 03/2023 showed a normal EF, normal RV systolic function. No significant valvular disease. Further workup with PCP was recommended. He subsequently underwent CT abdomen/pelvis which showed splenomegaly and mildly enlarged yanely hepatic nodes and a chest CT showed mediastinal adenopathy. He underwent a bronchoscopy which showed reactive follicular hyperplasia. Labs reviewed - patient entered attachment under media labs from 10/20/23: Hgb 13.1, platelet 127, proBNP 226, creatinine 1.3, K 5.1 EKG 06/02/23 Normal sinus rhythm 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) Abnormal ECG When compared with ECG of 09-APR-2022 12:48, Nonspecific T wave abnormality, improved in Lateral leads TTE 04/05/23 [facility] EF 64%. Normal LV diastolic function and normal filling pressures. Normal RV systolic function. RVSP 32mmHg. Mild MR. Trace TR. Mildly dilated ascending aorta (3.9cm) Cardiac Catheterization 02/24/22 Conclusions: ?* Significant stenosis of the left main ?* Three vessel coronary artery disease (LAD, LCX and RCA) ?* Patent left internal mammary artery graft to the LAD ?* Obstructive disease of the saphenous vein graft to the RCA ?* Obstructive disease of the saphenous vein graft to the OM1 ?* Successful stent insertion of the distal LM lesion ?* Successful stent insertion of the mid RCA lesion ?* Successful stent insertion of the ostial RPDA lesion ?* Successful stent insertion of the distal RCA lesion ?* Successful stent insertion of the mid 1 RPDA lesion ?* See Dual Antiplatelet (DAPT) Recommendations above Anesthesia history: Colonoscopy, bronchoscopy 07/29/23 Bronchoscopy Mac4, gr 1 view, easy mask Conrad Vera is a 68 y.o. with a history of diabetes, gout, HTN, HLD, hypothyroidism, GERD, CAD,anemia and thrombocytopenia whose chart was reviewed in preparation for sinus surgery. CAD s/p CABGand repeat revascularization in 2021. TTE performed 04/05/23 showed a normal EF, normal RV systolic function, no significant valvular disease. Patient recently received GA for a bronchoscopy in July 2023. Based on chart review, no additional testing recommended at this time. Final anesthetic plan to be determined by primary team after in person evaluation. Case discussed with attending anesthesiologist Dr. Hidalgo. Fabiola Petty, ENERGY CONSULTANT 10/29/23 documented in this encounter Plan of Treatment Upcoming Encounters Date Type Department Care Team (Late st Contact Info) Description 05/24/2024 2:00 PM EDT Office [place] [address] Bernard Linares MD [facility] [place] [address] 09/07/2024 3:00 PM EST Office Visit Dermatology at [address] [place] [address] Jeremiah Preston MD [facility] [address] [place] [address] documented as of this encounter Visit Diagnoses Not on filedocumented in this encounter Administered Medications Inactive Administered Medications - up to 3 most recent administrations Medication Order MAR Action Action Date Dose Rate Site ceFAZolin (Ancef) 2 g vial attach to sodium chloride 0.9% 100 mL Mini-Bag Plus 2 g, Intravenous, ONCE, 1 dose, On Wed11/26/23 at 0930, Administer over 30 Minutes, Day of Surgery (Day of Procedure), Indication for (Active or Suspected): Prophylaxis New Bag 11/26/2023 10:40 AM EST 2 g dexmedeTOMIDine (Precedex) (4 mcg/mL) bolus injection (Anesthsia) Intravenous, PRN, Starting on Wed11/26/23 at 1149, Until Wed11/26/23 at 1258, Anesthesia Intra-op, Routine Given 11/26/2023 11:53 AM EST 4 mcg Given 11/26/2023 11:49 AM EST 4 mcg fentaNYL (pf) (50 mcg/mL) multi-dose injection Intravenous, PRN, Starting on Wed11/26/23 at 1020, Until Wed11/26/23 at 1258, Anesthesia Intra-op, Routine Given 11/26/2023 10:20 AM EST 100 mcg HYDROmorphone (Dilaudid) (2 mg/mL) multi-dose injection solution Intravenous, PRN, Starting on Wed11/26/23 at 1123, Until Wed11/26/23 at 1258, Anesthesia Intra-op, Routine Given 11/26/2023 12:15 PM EST 0.2 mg Given 11/26/2023 11:23 AM EST 0.4 mg lactated ringers infusion Intravenous, CONTINUOUS PRN, Starting on Wed11/26/23 at 1013, Until Wed11/26/23 at 1258, Anesthesia Intra-op New Bag 11/26/2023 10:13 AM EST lactated ringers infusion Intravenous, CONTINUOUS PRN, Starting on Wed11/26/23 at 1025, Until Wed11/26/23 at 1258, Anesthesia Intra-op New Bag 11/26/2023 10:25 AM EST lidocaine (pf) (Xylocaine) (20 mg/mL) 2% injection syringe Intravenous, PRN, Starting on Wed11/26/23 at 1021, Until Wed11/26/23 at 1258, Anesthesia Intra-op, Routine Given 11/26/2023 10:21 AM EST 100 mg ondansetron (pf) (Zofran) (2 mg/mL) injection Intravenous, PRN, Starting on Wed11/26/23 at 1226, Until Wed11/26/23 at 1258, Anesthesia Intra-op, Routine Given 11/26/2023 12:26 PM EST 4 mg propofoL (Diprivan) (10 mg/mL) infusion Intravenous, CONTINUOUS PRN, Starting on Wed11/26/23 at 1045, Until Wed11/26/23 at 1258, Anesthesia Intra-op, Routine Rate/Dose Change 11/26/2023 12:19 PM EST 50 mcg/kg/min 24.93 mL/hr New Bag 11/26/2023 10:45 AM EST 100 mcg/kg/min 49.86 mL /hr propofoL (Diprivan) 10 mg/mL bolus injection (Anesthesia) Intravenous, PRN, Starting on Wed11/26/23 at 1021, Until Wed11/26/23 at 1258, Anesthesia Intra-op Given 11/26/2023 10:21 AM EST 200 mg rocuronium (Zemuron) (10 mg/mL) multi-dose injection Intravenous, PRN, Starting on Wed11/26/23 at 1023, Until Wed11/26/23 at 1258, Anesthesia Intra-op, Routine Given 11/26/2023 11:36 AM EST 10 mg Given 11/26/2023 11:11 AM EST 20 mg Given 11/26/2023 10:23 AM EST 50 mg succinylcholine (Anectine;Quelicin) (20 mg/mL) injection Intravenous, PRN, Starting on Wed11/26/23 at 1022, Until Wed11/26/23 at 1258, Anesthesia Intra-op, Routine Given 11/26/2023 10:22 AM EST 100 mg sugammadex (Bridion) 100 mg/mL injection Intravenous, PRN, Starting on Wed11/26/23 at 1237, Until Wed11/26/23 at 1331, Anesthesia Intra-op, Routine Given 11/26/2023 12:37 PM EST 200 mg documented in this encounter Care Teams Poll Watcher Relationship Specialty Start Date End Date Veronica Campbell APRN [address] [place] [address] PCP - General Family Medicine 01/18/22 documented as of this encounter
--- OUTSIDE RECORDS SUMMARY | 2024-05-18 15:16 | XMS_ITS | Encounter Summary ---
Author Organization [facility] [place] [address] Care Team Providers Care Community Arts Centre Manager Name Role Phone Veronica Campbell CHRISTEL Primary Care Provider [phone] Reason for Visit * Reason Onset Date Comments Pre Procedure Call 07/28/2023 Bronchoscopy Encounter Details Date Type Department Care Team (Late st Contact Info) Description 07/28/2023 [place] [id number] Shabnam Dugan RN Pre Procedure Call (Bronchoscopy ) Social History Tobacco Use Types Packs/Day Years Used Date Smoking Tobacco: Former Cigarettes 1.5 15 1 11/03/1969 - 09/02/1985 Smokeless Tobacco: Never Alcohol Use Standard Drinks/Week Comments Yes 4 (1 standard drink = 0.6 oz pur e alcohol) rare Sex and Gender Information Value Date Recorded Sex Assigned at Not on file Gender Identity Not on file Sexual Orientation Not on file documented as of this encounter Miscellaneous Notes * Telephone Encounter - Shabnam Dugan RN - 07/28/2023 9:55 AM EDT Made scheduled call to review instructions prior to interventional pulmonary procedure: [x] Informed patient of date, time, and location of procedure or pre-procedure imaging or tests as applicable. Scheduled bronchoscopy with EBUS on 07/29/2023 at 1:00 in Endo under [facility] with Dr. Gonzales. Arrive at 4T at 12:00 to check in. Procedure is scheduled for 60 minutes. [x] Informed patient they must have car pick up driver who accompanies them into and to drive pt home safelyafter the procedure. Joana, -Masking is now optional if you do not have COVID/ pulmonary symptoms but masks will continue to still be available at all entrance locations and throughout the building. [x] Reviewed home oxygen or ventilation use: [x] Patient not on home ventilator or oxygen [] Patient is on home oxygen and/or ventilator (document amount and type of oxygen device): [x] Patient confirms they will bring necessary supplies for transport to and from [] Patient identifies this potential supply issue: Will document and contact their DME for assistance. [x] Medication review: Confirm any new medications since last seen in Pulmonary. Only need to review blood thinners, insulin and rescue inhaler. [] Patient has rescue inhaler (e.g., albuterol) and will bring to procedure [x] Anticoagulation and anti-platelet therapy reviewed: [] No anticoagulation or anti-platelet therapy [x] Patient will hold anticoagulation or anti-platelet therapy as directed (See IP job aid for standard instructions or MD note for special instructions) pt takes ASA 81 mg, ok to continue. [x] Insulin use reviewed: [x] No insulin therapy [] Patient taking insulin: Instructed to take half of long acting dose, and NOT take short acting dose morning of procedure [x] Patient understands they are to take all other medications the day of procedure unless specifically addressed 5. [x] NPO instructions reviewed with patient: -Do not have anything to eat/ no solid food after midnight tonight. -Pt permitted to have any amount of clear liquids up to two hours before scheduled procedure. -Clear liquid allowed are: water, demian yanna, apple juice, black coffee or tea. Sugar or sugar substitutes are fine in coffee or tea, however pt not permitted to have any dairy products (or dairy substitutes) after midnight- No milk, cream, or creamers. -Okay to take small sips of water to take allowed medications within 2 hours of the procedure. -Failure to abide to these dietary instructions may result in cancellation of procedure. 6. [x] COVID screening [x] Patient denies current symptoms or exposures as per most recent COVID Screening Job Aid 7. Other questions addressed during this call: N/A EL Bryson, RN Department of Pulmonary 5C, [facility] Pager: [phone] documented in this encounter Plan of Treatment Upcoming Encounters Date Type Department Care Team (Late st Contact Info) Description 05/24/2024 2:00 PM EDT Office [place] [address] Bernard Linares MD [facility] [place] [address] 09/07/2024 3:00 PM EST Office Visit Dermatology at [facility] [address] [place] [phone] Jeremiah Preston MD [facility] [address] [place] [address] documented as of this encounter Visit Diagnoses Not on filedocumented in this encounter Care Teams Community Arts Centre Manager Relationship Specialty Start Date End Date Veronica Campbell APRN [address] [place] [address] PCP - General Family Medicine 01/18/22 documented as of this encounter
--- OUTSIDE RECORDS SUMMARY | 2024-05-18 15:16 | XMS_ITS | Encounter Summary ---
Author Organization [facility] [place] [address] Care Team Providers Care Behavioral Health Case Manager Name Role Phone Adrian Veronica CHRISTEL Primary Care Provider [phone] Encounter Details Date Type Department Care Team (Late st Contact Info) Description 11/26/2023 Telephone [place] [address] Grisel Calhoun PA [facility] [place] [address] Social History Tobacco Use Types Packs/Day Years [...] encounter Miscellaneous Notes * Telephone Encounter - Grisel Calhoun PA - 11/26/2023 8:11 PM EST Received a call from Conrad Bernard' spouse, she reached out and was concerned about a slow intermittent epistaxis ooze from the left nare following Mr. Vera' surgery (FESS) today. I advised her he does have absorbable packing in place and to keep the mustache dressing applied to the nose to catch any drainage. Nasal drainage is the most prominent the first 3 days following surgery. However, if any obdulia epistaxis occurs that is persistent after 15 minutes of anterior nasal pressure (pinching nostrils) and Afrin spray application, to present to the nearest ED. Advised he may also continue to do saline rinses and there is likely to be blood tinged mucus in his irrigations. We will see himin ENT clinic on 11/30. All questions and concerns addressed at this time. Thank you for the participation of care in this patient. Grisel Calhoun PA-C Resident Division of Otolaryngology-[place] [address] 11/26/23 8:21 PM documented in this encounter Plan of Treatment Upcoming Encounters Date Type Department Care Team (Late st Contact Info) Description 05/24/2024 2:00 PM EDT Office [place] [address] Bernard Linares MD [facility] [place] [address] 09/07/2024 3:00 PM EST Office Visit Dermatology at [place] [address] [place] [address] Jeremiah Preston MD [facility] [address] [place] [address] documented as of this encounter Visit Diagnoses Not on filedocumented in this encounter Care Teams Behavioral Health Case Manager Relationship Specialty Start Date End Date Veronica Campbell APRN [address] [place] [address] PCP - General Family Medicine 01/18/22 documented as of this encounter
--- OUTSIDE RECORDS SUMMARY | 2024-05-18 15:16 | XMS_ITS | Encounter Summary ---
[facility] [place] [address] Care Team Providers Care Hub Bander Name Role Phone Veronica Campbell APRN Primary Care Provider Reason for Referral * Physical Therapy (Routine) - Authorized Specialty Diagnoses / Procedures Referred By Jason garcia Referred To Contact Physical Therapy Diagnoses Right shoulder pain, unspecified chronicity Higinio Villalobos MD [facility] [place] [address] Referral ID Status Reason Start Date Expiration Date Visits Requested Visits Authorized [id number] Authorized Evaluate and Treat 11/23/2023 05/21/2024 12 12 Reason for Visit * Reason Comments Establish Care MRI (REEthan DODSON) R RTC TEAR, Hx REPAIR DOS: 02/2023 (MARY) 2ND OPINION POSSIBLE OMAR * Consultation (Routine) - Authorized Specialty Diagnoses / Procedures Referred By Jason garcia Referred To Contact Orthopaedics Diagnoses Nontraumatic incomplete tear of rotator cuff, unspecified laterality R RTC Veronica Campbell APRN [address] [place] [address] [facility] [address] [place] [phone] Referral ID Status Reason Start Date Expiration Date Visits Requested Visits Authorized [id number] Authorized Consult, Test & Treat PCP Updated and/or Approved 11/08/2023 11/07/2024 6 6 Encounter Details Date Type Department Care Team (Late st Contact Info) Description 11/23/2023 11:20 AM EST Office Visit Orthopaedics at [facility] [place] [address] Higinio Villalobos MD [facility] [place] [address] Right shoulder pain, unspecified chronicity Social History [...] - - Weight 97.1 kg (214 lb) 11/23/2023 11:25 AM EST Height 177.8 cm (5' 10) 11/23/2023 11:25 AM EST Body Mass Index 30.71 11/23/2023 11:25 AM EST documented in this encounter Progress Notes * Higinio Villalobos MD - 11/23/2023 11:20 AM EST Images from the original note were not included. [facility] Orthopaedics Section of Shoulder and Elbow Surgery Outpatient Clinic Visit Referral: Conrad Vera presents to see us in consultation today at the request of: Veronica Campbell APRN [address] [place] [address] Chief Complaint: Right shoulder pain History of Present Illness: Conrad Vera is a 68 y.o. Right hand dominant male with a past history of CAD, chronic sinus infections, who presents with Right shoulder pain. He has had ongoing pain since his surgery last summer. Of note, the patient reports that he came out of his sling for gentlehome activities prior to the 6-week kasandra, but did not have any specific injury or incident which reinjured himself. Specific Injury: Yes, several years ago running a saw simeon. Location: Diffuse Duration: 8 months since surgery Triggers: acitivity Radiation: Yes, arm Numbness/Tingling: No Previous interventions: Physical Therapy Other details: Right shoulder cuff repair 03/19. PMH: Diabetes Past Surgical History: Procedure Laterality Date PRG CATH PLMT LEFT HEART CATH & ARTS W/INJ & ANGIO IMG S&I N/A 02/24/2022 CORONARY ANGIOGRAPHY; W LHC,POSSIBLE PCI performed by Pablito Hunt MD at [facility] CATH LABS [facility] [place] GUIDED SAMPL 3/> NODE STATION/STRUX N/A 07/29/2023 BRONCH, W ENDOBRONCHIAL ULTRASOUND (EBUS) GUIDED SAMPLING, 3+ NODES (WRVU 4.96) performed by Toro Gonzales MD at [facility] ENDOSCOPY PRO COLONOSCOPY, DIAGNOSTIC N/A 09/02/2015 COLONOSCOPY, DIAGNOSTIC performed by Roula Saez MD at [facility] ENDOSCOPY No family history on file. Social History Socioeconomic History Marital status: Spouse name: Not on file Number of children: Not on file Years of education: Not on file Highest education level: Not on file Occupational History Not on file Tobacco Use Smoking status: Former Packs/day: 1.50 Years: 15.00 Additional pack years: 0.00 Total pack years: 22.50 Types: Cigarettes Quit date: 09/02/1985 Years since quittin.2 Smokeless tobacco: Never Vaping Use Vaping Use: Never used Substance and Sexual Activity Alcohol use: Not Currently Comment: rare Drug use: No Sexual activity: Not on file Other Topics Concern Not on file Social History Narrative Not on file Social Determinants of Health Financial Resource Strain: Not on file Food Insecurity: Not on file Transportation Needs: Not on file Physical Activity: Not on file Intimate Partner Violence: Not on file Housing Stability: Not on file Pertinent Review of Systems Per [facility] Meds: Current Outpatient Medications on File Prior to Visit Medication Sig Dispense Refill levoFLOXacin (Levaquin) 500 mg tablet Take 1 tablet every 24 hours by oral route. tadalafiL (Cialis) 5 mg tablet Take 5 mg by mouth as needed for Erectile Dysfunction. hydroCHLOROthiazide (Hydrodiuril) 12.5 mg tablet Take 12.5 mg by mouth daily. ferrous sulfate EC (FeroSul) 325 mg (65 [...] every morning (before breakfast). One a day FreeStyle Elma 2 [place] Misc 1 each by Other route daily. Indications: diabetes 1 each 0 FreeStyle Elma 2 Sensor Kit 1 each by Other route daily. Indications: diabetes 6 kit 3 icosapent ethyL (Vascepa) 1 gram Capsule Take 2 capsules by mouth 2 times daily. 360 capsule 3 atorvastatin (Lipitor) 20 mg Tablet Take 1 tablet by mouth nightly. 90 tablet 3 nitroGLYcerin (Nitrostat) 0.4 mg Tablet, Sublingual Place [...] MG = 1 Tablet(s), PO, Once daily [DISCONTINUED] Dexcom G6 Diet Technician Registered Misc 1 each by [facility].(Non-Drug; Combo Route) route continuous. Useas directed for continuous glucose monitoring. E11.9 (Patient not taking: Reported on 11/10/2023) 1 each 0 [DISCONTINUED] Dexcom G6 Sensor Device 1 each by Misc.(Non-Drug; Combo Route) route continuous. Useas directed for continuous glucose monitoring. Change every 10 days. E11.9 (Patient not taking: Reported on 11/10/2023) 9 each 3 [DISCONTINUED] Dexcom G6 Transmitter Device 1 each by Misc.(Non-Drug; Combo Route) route continuous. Use as directed for Continuous Glucose Monitoring. Change every 90 days. E11.9 (Patient not taking: Reported on 11/10/2023) 1 each 3 No current facility-administered medications on file prior to visit. Objective: Vitals: Ht 177.8 cm (5' 10) Wt 97.1 kg (214 lb) BMI 30.71 kg/m?? Examination: GENERAL: Well appearing, appropriate NEUROVASCULAR: Sensation intact to light touch in the Right upper extremity. Warm and well perfusedhand. SKIN: No significant abrasions or lesions about the shoulder. MUSCULOSKELETAL: Right Shoulder Examination Visible abnormality: Yes, well heal Tenderness to palpation: No Palpable crepitus: No Range of motion: Forward Elevation: 90, 100 passive External Rotation: 30 active and passive Internal Rotation: Buttock Strength Testing: Abduction: 5/5 With Pain External Rotation: 5/5 With Pain Resisted Internal Rotation: 5/5 With Pain Rotator Cuff Testing: Empty Can/Marilee's: Negative Bear Hug: Negative Belly Press: Negative Biceps/Labrum: Groove TTP: Negative AC Joint TTP: Negative Impingement Neer's: Positive Hawkin's: Positive Questionnaire Responses: 11/23/2023 General Health, Prior Treatments, PreExisting Condition, Health Habits, About You PROMIS-10 General Health Fair PROMIS-10 Quality of Life Good PROMIS-10 Physical Health Fair PROMIS-10 Mental Health Good PROMIS-10 Social Activity Good PROMIS-10 Everyday Activities Mostly PROMIS-10 Pain 2 PROMIS-10 Fatigue Mild PROMIS-10 Social Roles Good PROMIS-10 Anxious or Depressed Sometimes PROMIS PHYSICAL SCORE (range 16-68) 44.9 PROMIS MENTAL SCORE (range 21-68) 43.5 Treatments Tried Physical therapy Other injections or needle procedures Prior surgery for this problem Prior Surgery tendon repair Alzheimers or dementia No Cirrohosis or liver disease No HIV/AIDS No Pain in more than one joint in legs No Back or neck pain Yes Heart attack Yes Heart failure Yes Unclog/bypass leg arteries No Stroke, blood clot, TIA No Asthma No Emphysema, chronic bronchities, or COPD No Stomach ulcers/peptic ulcer disease No Diabetes Yes Diabetes caused problems with kidneys No Diabetes caused problems with eyes Yes Poor kidney function No Rheumatic condtions No Cancer No Weight (lbs) 214 Height (feet) 5 feet Height (Inches) 10 BMI 30.7 (Obese) Ever used tobacco products Yes Tobacco frequency Never WHO - Tobacco Advice 0 (You are at low risk of health and other problems from your current pattern of use.) Ever used alcoholic beverages Yes Alcohol frequency Once or twice WHO - Alcohol Advice 2 (You are at low risk of health and other problems from your current pattern of use.) Live Alone No Marital situation Schooling Some college or 2 - year degree Combined Household Income $50,000 to less than $75,000 # People Supported 2 Cameroonian, , No, not Cameroonian// Race White Health Literacy Extremely Currently working No Not working because: Retired 11/23/2023 [facility] Response ASES VAS-RIGHT 1 ASES ADL-RIGHT ARM 5 ASES RIGHT ARM 53.33 No data to display Imaging: We independently reviewed the patient's imaging in the office today. MRI imaging was reviewed today. It demonstrates evidence of a prior rotator cuff repair. There is associated tendinopathyand a small area of possible full- thickness tearing. Anteriorly about the supraspinatus. No significant retraction or definitive tearing. Assessment/Plan: 68 y.o. male with a history of a rotator cuff repair 8 months ago who presents with ongoing pain and stiffness consistent with postoperative adhesive capsulitis. Patient continues tohave significant pain and stiffness 8 months out from surgery. Although he came out of the sling somewhat early, he has not had a recurrent injury to explain his lack of symptoms. MRI imaging demonstrates a very small possible retear, but this is certainly not enough to explain his current level offunctionality. Instead, I do think this represents postoperative adhesive capsulitis. Is possible this could be a marker of infection. With that in mind we will plan to start with a an aspiration of the shoulder to rule out infection in the setting of his diabetes. If this is negative, we will thenplan on a steroid injection and physical therapy focused on that if these of capsulitis. If he has ongoing symptoms in 3 months, we will consider a shoulder arthroscopy contracture release at that point. Higinio Villalobos MD, MS Shoulder and Elbow Surgeon Department of Orthopaedic Surgery [facility] This note was created with the assistance of voice dictation software. Please excuse any related errors. documented in this encounter Plan of Treatment Upcoming Encounters Date Type Department Care Team (Late st Contact Info) Description 05/24/2024 2:00 PM EDT Office Visit [place] [address] Bernard Linares MD [facility] [place] [address] 09/07/2024 3:00 PM EST Office Visit Dermatology at [facility] [address] [place] [address] Jeremiah Preston MD [facility] [address] [place] [address] Scheduled Orders Name Type Priority Associated Diagnoses Orde r Schedule CBC (with Diff) Lab Routine Right shoulder pain, unspecified chronicity Expected: 11/23/2023, Expires: 11/22/2024 CRP, acute inflammation Lab Routine Right shoulder pain, unspecified chronicity Expected: 11/24/2023 (Approximate), Expires: 05/25/2024 Sedimentation rate Lab Routine Right shoulder pain, unspecified chronicity Expected: 11/24/2023 (Approximate), Expires: 05/25/2024 Scheduled Referrals Name Type Priority Associated Diagnoses Orde r Schedule Referral to Physical Therapy Outpatient Referral Routine Right shoulder pain, unspecified chronicity Ordered: 11/23/2023 documented as of this encounter Results * XR Fluoro Guided [...] who have questions please contact the health long term acute care registered nurse that requested your imaging first. ? Electronically signed by: Maddy Campbell MD, [facility] ([phone]), at 12/24/2023 2:11 PM Narrative 12/24/2023 2:11 [...] electronic medical record and allergies, as per [facility] protocol. The patient was placed supine with [...] electronic medical record and allergies, as per [facility] protocol. The patient was placed supine with [...] patients who have questions please contactthe health long term acute care registered nurse that requested your imaging first. Electronically signed by: Maddy Campbell MD, [facility]([phone]), at 12/24/2023 2:11 PM Higinio Villalobos MD IMG FLUORO ORDERABLE S documented in this encounter Visit Diagnoses Diagnosis Right shoulder pain, unspecified chronicity Right shoulder pain, unspecified chronicity documented in this encounter Care Teams Hub Bander Relationship Specialty Start Date End Date Veronica Campbell APRN [address] [place] [address] PCP - General Family Medicine 01/18/22 documented as of this encounter
--- OUTSIDE RECORDS SUMMARY | 2024-05-18 15:16 | XMS_ITS | Encounter Summary ---
Author Organization Count Includes [facility] Address [facility] [place] [address] Care Team Providers Care Chief Airline Radio Operator Name Role Phone Veronica Campbell APRN Primary Care Provider [phone] Reason for Visit * Consultation (Priority 3) - Closed Specialty Diagnoses / Procedures Referred By Jason garcia Referred To Contact Dermatology Diagnoses Skin exam, screening for cancer FSE Veronica Campbell APRN [address] [place] [address] [facility] Dermatology [address] [place] [address] Referral ID Status Reason Start Date Expiration Date V isits Requested Visits Authorized [id number] Closed Consult, Test & Treat PCP Updated and/or Approved 03/16/2023 03/15/2024 12 12 Encounter Details Date Type Department Care Team (Late st Contact Info) Description 09/08/2023 2:00 PM EST Office Visit Dermatology at [facility] [address] [place] [address] Kiara Santana MD [facility] [address] Y[address] [place] [address] Del Cid angioma; Seborrheic keratosis; Multiple benign nevi; Actinic keratosis Social History Tobacco Use Types Packs/Day Years [...] as of this encounter Progress Notes * Kiara Santana MD - 09/08/2023 2:00 PM EST Images from the original note were not included. DEPARTMENT OF DERMATOLOGY Medical Dermatology Clinic Note Provider: Kiara Santana MD Patient's preferred name Raza Preferred contact method for results []Phone []myD-H []Letter Detailed phone message OK? Are there any other people with whom we may discuss your care? Past Medical History Date, location, treatment Melanoma No Dysplastic nevi No SCC No BCC No AKs Yes UV Exposure & Protection N Other relevant past medical history Family History Details Melanoma - NMSC Sister - unsure what kind Other relevant family history Social History Occupation: Hobbies: Other: Pre-Procedure Questions Details Allergy to lidocaine, epinephrine, Dermabond, chlorhexidine, or adhesives No Bleeding disorder or blood thinners No Implanted devices (Pacemaker, defibrillator, deep brain stimulator, cochlear implant) 5 stents History of Present Illness: Conrad Vera is a 68 y.o. Patient is referred to the clinic at the request of Veronica Campbell for a full skin exam with the following concerns: - One lesion of concern on the right cheek, asymptomatic. Review of Systems: General: Feeling well. Skin: No other skin concerns. Medications: Reviewed in eD-H Allergies: Reviewed in eD-H Skin Examination: Full skin examination: Patient asked to undress to their comfort level. Verbalized that the provider???s preference is that the patient remove all clothing and that the provider will not examine areas patient elects to keep covered. Patient elects to keep underwear on and have the following examined: scalp, hair, face, ears, neck, chest, axillae, abdomen, back, and upper and lower extremities. Genitalia and buttocks were not examined. Assessment/Plan #. Benign-Appearing Nevi - Medium brown, evenly pigmented macules and papules scattered on the trunk and extremities. Reassuring pigment pattern on dermoscopy. - Discussed benign appearance and provided reassurance. Will continue to monitor. #. Seborrheic Keratoses - [place]-brown papules/plaques with waxy, stuck-on appearance scattered on the head, trunk, and extremities. - Explained that these are hereditary and adult-acquired. Reassured patient of benign nature. No treatment necessary. #. Del Cid Angiomas - Bright red, well-demarcated papules on the trunk. - Discussed benign nature and provided reassurance. No treatment necessary. - Briefly explained option of laser removal, which is considered a cosmetic procedure and not covered by insurance. #. Actinic Keratoses - Ill-defined, gritty papule(s) on the right buddhist x1, left helix x1, left frontal scalp x1 - Explained premalignant potential of these lesions. - Recommended treatment with cryotherapy; after reviewing post-procedure expectations (e.g., scabbing, blistering) and wound care, patient elected to proceed. - Instructed patient to return to clinic for re-evaluation if lesion(s) does not resolve with this treatment. Procedure: Destruction of benign lesion(s) with cryotherapy (LN2). Location(s): As noted above. Number: 3 Indication and expectations, including risks (especially hypopigmentation) and benefits, discussed.Possibility of recurrence and need for additional treatment reviewed. Verbal consent obtained. Frozen with LN2, 15-30 second thaw time, twice. There were no complications; patient tolerated procedurewell. Post- procedure expectations and wound care reviewed. Other: N/A RTC: 1 Year for FSE []Note routed to junior legal secretary [x]Recall placed in scheduling system []Appointment scheduled at checkout Scribe attestation: Ok Delgado RN has performed the documentation for this encounter in the presence of and acting as a scribe for Kiara Santana MD. I performed the above scribed service and agree with the accuracy of the documentation in this encounter. Reviewed and signed by: Kiara Santana MD Dermatology [facility] documented in this encounter Plan of Treatment Upcoming Encounters Date Type Department Care Team (Late st Contact Info) Description 05/24/2024 2:00 PM EDT Office [place] [address] Bernard Linares MD [facility] [place] [place] [address] 09/07/2024 3:00 PM EST Office Visit Dermatology at [facility] [address] [place] [address] Jeremiah Preston MD [facility] DR [address] [place] [address] Scheduled Referrals Name Type Priority Associated Diagnoses Order Schedule Referral to Dermatology Outpatient Referral Routine Skin exam, screening for cancer Ordered: 03/16/2023 documented as of this encounter Visit Diagnoses Diagnosis Del Cid angioma Nevus, non-neoplastic Seborrheic keratosis Other seborrheic keratosis Multiple benign nevi Benign neoplasm of skin, site unspecified Actinic keratosis documented in this encounter Care Teams Chief Airline Radio Operator Relationship Specialty Start Date End Date Veronica Campbell APRN [address] [place] [address] PCP - General Family Medicine 01/18/22 documented as of this encounter
--- OUTSIDE RECORDS SUMMARY | 2024-05-18 15:16 | XMS_ITS | Encounter Summary ---
Author Organization [facility] Address [facility] [place] [address] Care Team Providers Care Community Recreation Coordinator Name Role Phone Veronica Campbell CHRISTEL Primary Care Provider [phone] Encounter Details Date Type Department Care Team (Late st Contact Info) Description 07/29/2023 12:51 PM EDT Anesthesia Event [place] [address] Rory Cruz MD [facility] [place] [address] Anesthesia Record Procedure Summary Procedure Name Responsible Anesthesiologist Anesthesia Start Time Anesthesia Stop Time BRONCH, W ENDOBRONCHIAL ULTRASOUND (EBUS) GUIDED SAMPLING, 3+ NODES (WRVU 4.96) Rory Cruz MD 07/29/23 1251 07/29/23 1354 Events Date Time Event Comment 07/29/2023 1245 1251 AN Verify 1251 Start 1251 An Start Data 1256 An Induction 1300 An Intubation 1302 Anesthesia Ready 1345 Extubation/LMA Out 1349 an stop data 1354 Recovery or ICU Handoff Cherelle ent care was transferred to the destination unit staff after review of the patient's medical history, current anesthetic/surgical status and plan, according to the Provider Handoff Checklist. 1354 Stop Meds Name Total IV Lidocaine 60 mg Propofol 240 mg Propofol INF 493.54 mg Rocuronium 50 mg PHENYLephrine 80 mcg Ondansetron 4 mg Sugammadex 200 mg lactated ringers infusion 400 mL * Agents Name O2 Air N2O * Blood No blood administrations on file. Lines, Drains, and Airways Type Details Placement Removal (RETIRED) Peripheral IV Line - Single Lumen 02/24/22; 1158; cephalic vein (lateral side of arm), right; tdfy-bxx-szoyut catheter system; Anatomical Landmarks; US Not Used; 18 gauge; ROSENDO Vega; distraction, tolerated well, appears comfortable; 11/26/23 (removed from pt's medical record today); 92002/24/22 1158 by Alexa Moreno RN 11/26/23 0921 by Juliet Walsh RN (RETIRED) Peripheral IV Line - Single Lumen 02/24/22; 1159; basilic vein (medial side of arm), left; [id number] catheter system; Anatomical Landmarks; US Not Used; 20 gauge; ROSENDO Liu; distraction, tolerated well, appears comfortable; 11/26/23 (removed from pt.s medical record today); 92002/24/22 1159 by Alexa Moreno RN 11/26/23 0921 by Juliet Walsh RN PIV 07/29/23; 1220; witz-unj-veaklv catheter system; 22 gauge; cephalic vein (lateral side of arm), right; Ariane Woo RN; distraction; 11/26/23; 0920 07/29/23 1220 by Za Cao RN 11/26/23 0920 by Juliet Walsh RN ETT Mask Ventilation: Ea sy (1); ETT Type: Cuffed, Oral; ETT Size: 9 mm; Mac Blade: 4; Notes: Pre-O2, Asleep, Stylette; Attempts: 1; Laryngoscopy Grade: 1; ETT Placement Verified By: Auscultation, Capnometry, Visual; Secured at Teeth: 21 cm; Inserted by: Dr Cruz; Removal Date: 07/29/23; Removal Time: 13407/29/23 1300 by Scarlett Zuñiga CRNA 07/29/23 1345 by Scarlett Zuñiga CRNA documented in this encounter Social History Tobacco [...] OR Notes * Anesthesia Postprocedure Evaluation - Rory Cruz MD - 07/29/2023 2:01 PM EDT Department of Anesthesiology Post-procedure Note Patient: Conrad Vera Procedure Summary Date: 07/29/23 Room / Location: [facility] ENDO 1 / [facility] ENDOSCOPY Anesthesia Start: 1251 Anesthesia Stop: 1354 Procedure: BRONCH, W ENDOBRONCHIAL ULTRASOUND (EBUS) GUIDED SAMPLING, 3+ NODES (WRVU 4.96) Diagnosis: Lymphadenopathy (Lympahadenopathy/ Bronch with EBUS/ GA/ Christian) Surgeons: Toro Gonzales MD Responsible Provider: Rory Cruz MD Anesthesia Type: general ASA Status: 3 All Anesthesia Providers: Anesthesiologist: Rory Cruz MD FINE ARTS CHAIR: Scarlett Zuñiga CRNA Vitals Value Taken Time BP 100/71 07/29/23 1400 Temp Pulse Resp 15 07/29/23 1352 SpO2 97 % 07/29/23 1401 Pain Level 2 07/29/23 1352 Vitals shown include unfiled device data. Patient Location: PACU/[facility] Level of Consciousness: Awake and Alert Pain Management: Satisfactory Analgesia PONV: None Cardiovascular Status: At Baseline and Hemodynamically Stable Respiratory Status: At Baseline and Room Air Postoperative Fluid Status: Intravascular EUvolemia Possible Anesthetic Complications: NONE apparent at time of evaluation Final Primary Anesthesia Type: General (The anesthetic type performed was the same as planned.) Comments: Rory Cruz MD * Anesthesia Preprocedure Evaluation - Rory Cruz MD - 07/28/2023 6:52 PM EDT Pre-Anesthesia Evaluation for: Conrad Vera a 68 y.o. male. Procedure(s): BRONCH, W ENDOBRONCHIAL ULTRASOUND (EBUS) GUIDED SAMPLING, 3+ NODES (WRVU 4.96) Patient Active Problem List Diagnosis Date Noted [...] IMG S&I N/A 02/24/2022 CORONARY ANGIOGRAPHY; [facility],POSSIBLE PCI performed by Pablito Hunt MD at [facility] CATH LABS ??? PRO COLONOSCOPY, DIAGNOSTIC N/A 09/02/2015 COLONOSCOPY, DIAGNOSTIC performed by Roula Saez MD at [facility] ENDOSCOPY Social History Tobacco Use ??? Smoking status: Former Packs/day: 1.50 Years: 15.00 Additional pack years: 0.00 Total pack years: 22.50 Types: Cigarettes Quit date: 09/02/1985 Years since quittin.9 ??? Smokeless tobacco: Never Substance Use Topics ??? Alcohol use: Yes Alcohol/week: 4.0 standard drinks of alcohol Types: 2 Glasses of wine, 2 Cans of beer per week Comment: rare Social History Substance and Sexual Activity Drug Use No Allergies Allergen Reactions ??? Red Blood Cells Antibodies-Difficult to Crossmatch DO NOT REMOVE Please contact the Blood Bank at [phone] for questions. ??? Amoxicillin-Pot Clavulanate CIS - Nausea/Vomiting, CIS - Nausea/Vomiting, CIS - Nausea/Vomiting, CIS - Nausea/Vomiting, CIS - Nausea/Vomiting ??? Colchicine ??? Metronidazole CIS - Rash, [...] Physical Exam: Preprocedure Vitals Current as of 07/28/23 1852 No BP, pulse, respiration, SpO2, or temperature recorded. Height: Weight: BMI: IBW: Airway Assessment: Mallampati: II TM distance: >3 FB Neck ROM: full Cardiovascular Assessment: Rhythm: regular Rate: normal Pulmonary Assessment: unlabored breathing pulmonary exam normal Dental Assessment: - normal exam Misc Assessment: Patient is wearing No contact(s). IV access: Peripheral line Last Filed Perioperative Cognitive Screening None Anesthesia Plan: ASA 3 general, with a(n) intravenous induction 68-year-old 96.3 kg M with PMH: Obesity (BMI: 30.48 kg/m??), diabetes (glipizide, metformin), gout (allopurinol), HTN (losartan), HLD (atorvastatin), hypothyroidism (levothyroxine), GERD (esomeprazole), CAD (5 stents 2021, CABGx3 2009, NTG) patient presents here today for bronchoscopy. Allergies: RBCs, amoxicillin, colchicine, metronidazole, morphine, meperidine, methadone NPO status: Appropriate Plan: GETA, PIV x1, standard ASA monitors Region - Other Informed Consent: Anesthetic plan and risks discussed with patient. Plan discussed with FINE ARTS CHAIR and attending. Anesthesia Screening documented in this encounter Plan of Treatment Upcoming Encounters Date Type Department Care Team (Late st Contact Info) Description 05/24/2024 2:00 PM EDT Office Visit [place] [address] Bernard Linares MD [facility] [place] [address] 09/07/2024 3:00 PM EST Office Visit Dermatology at [address] [place] [address] Jeremiah Preston MD [facility] [place] [address] documented as of this encounter Visit Diagnoses Not on filedocumented in this encounter Administered Medications Inactive Administered Medications - up to 3 most recent administrations Medication Order MAR Action Action Date Dose Rate Site lactated ringers infusion 100 mL/hr, Intravenous, CONTINUOUS, Starting on Adriane 07/29/23 at 1230, Until Adriane 07/29/23 at 1653, Endoscopy (Day of Procedure) New Bag 07/29/2023 12:51 PM EDT lidocaine (pf) (Xylocaine) (20 mg/mL) 2% injection syringe Intravenous, PRN, Starting on Adriane 07/29/23 at 1255, Until Adriane 07/29/23 at 1354, Anesthesia Intra-op, Routine Given 07/29/2023 12:55 PM EDT 60 mg ondansetron (pf) (Zofran) (2 mg/mL) injection Intravenous, PRN, Starting on Adriane 07/29/23 at 1329, Until Adriane 07/29/23 at 1354, Anesthesia Intra-op, Routine Given 07/29/2023 1:29 PM EDT 4 mg PHENYLephrine in NS (PF) (АНДРЕЙ-SYNEPHRINE) 0.8 mg/10 mL (80 mcg/mL) multi-dose injection Syringe Intravenous, PRN, Starting on Adriane 07/29/23 at 1327, Until Adriane 07/29/23 at 1354, Anesthesia Intra-op, Routine Given 07/29/2023 1:27 PM EDT 80 mcg propofoL (Diprivan) (10 mg/mL) infusion Intravenous, CONTINUOUS PRN, Starting on Adriane 07/29/23 at 1256, Until Adriane 07/29/23 at 1354, Anesthesia Intra-op, Routine Rate/Dose Change 07/29/2023 1:31 PM EDT 150 mcg/kg/min 86.67 mL/hr Rate/Dose Change 07/29/2023 1:26 PM EDT 125 mcg/kg/min 72. 225 mL/hr Rate/Dose Change 07/29/2023 1:13 PM EDT 150 mcg/kg/min 86. 67 mL/hr propofoL (Diprivan) 10 mg/mL bolus injection (Anesthesia) Intravenous, PRN, Starting on Adriane 07/29/23 at 1256, Until Adriane 07/29/23 at 1354, Anesthesia Intra-op Given 07/29/2023 1:32 PM EDT 40 mg Given 07/29/2023 12:56 PM EDT 200 mg rocuronium (Zemuron) (10 mg/mL) multi-dose injection Intravenous, PRN, Starting on Adriane 07/29/23 at 1257, Until Adriane 07/29/23 at 1354, Anesthesia Intra-op, Routine Given 07/29/2023 12:57 PM EDT 50 mg sugammadex (Bridion) 100 mg/mL injection Intravenous, PRN, Starting on Adriane 07/29/23 at 1335, Until Adriane 07/29/23 at 1354, Anesthesia Intra-op, Routine Given 07/29/2023 1:35 PM EDT 200 mg documented in this encounter Care Teams Community Recreation Coordinator Relationship Specialty Start Date End Date Veronica Campbell APRN [address] [place] [address] PCP - General Family Medicine 01/18/22 documented as of this encounter
--- OUTSIDE RECORDS SUMMARY | 2024-05-18 15:16 | XMS_ITS | Encounter Summary ---
Author Organization [facility] [place] [address] Care Team Providers Care Jewel Hole Driller Name Role Phone Veronica Campbell CHRISTEL Primary Care Provider [phone] Encounter Details Date Type Department Care Team (Latest Contact Info) Description 11/01/2023 Travel Social History Tobacco Use Types Packs/Day [...] 2:00 PM EDT Office [place] [address] Bernard Linares MD [facility] [place] [address] 09/07/2024 3:00 PM EST Office Visit Dermatology at [facility] [address] [place] [address] Jeremiah Preston MD [facility] [place] [address] documented as of this encounter Visit Diagnoses Not on filedocumented in this encounter Care Teams Jewel Hole Driller Relationship Specialty Start Date End Date Veronica Campbell APRN [address] [place] [address] PCP - General Family Medicine 01/18/22 documented as of this encounter
--- OUTSIDE RECORDS SUMMARY | 2024-05-18 15:16 | XMS_ITS | Encounter Summary ---
Author Organization [facility] [place] [address] Care Team Providers Care Mouse Breeder Name Role Phone Veronica Campbell APRN Primary Care Provider [phone] Encounter Details Date Type Department Care Team (Late st Contact Info) Description 10/26/2023 Ancillary Procedure [place] [address] Veronica Campbell APRN [address] [place], [place] [address] Social History Tobacco Use Types Packs/Day Years [...] 2:00 PM EDT Office [place] [address] Bernard Linares MD [facility] [place] [address] 09/07/2024 3:00 PM EST Office Visit Dermatology at [facility] [address] [place] [address] Jeremiah Preston MD [facility] [place] [address] documented as of this encounter Procedures Procedure Name Priority Date/Time Associated Diagnosis Comments FILM LIBRARY STORAGE ONLY MR SHOULDER Routine 10/26/2023 12:00 AM EST documented in this encounter Results * Film Library- Storage Only MR Shoulder (10/26/2023 12:00 AM EST) Narrative [facility] - 11/08/2023 5:00 PM EST This exam is auto-finalizing. It's purpose is for storage only. Veronica Campbell APRN IMG FILM LIBRARY ORD ERABLES Performing Organization Address City/State/[facility] Co de Phone Number [place], [place] documented in this encounter Visit Diagnoses Not on filedocumented in this encounter Care Teams Mouse Breeder Relationship Specialty Start Date End Date Veronica Campbell APRN [address] [place] [address] PCP - General Family Medicine 01/18/22 documented as of this encounter
--- OUTSIDE RECORDS SUMMARY | 2024-05-18 15:16 | XMS_ITS | Encounter Summary ---
Author Organization [facility] [place] [address] Care Team Providers Care Natural Resources Manager Name Role Phone Veronica Campbell CHRISTEL Primary Care Provider [phone] Encounter Details Date Type Department Care Team (Latest Contact Info) Description 11/10/2023 Travel Social History Tobacco Use Types Packs/Day [...] 2:00 PM EDT Office [place] [address] Bernard Linares MD [facility] [place] [address] 09/07/2024 3:00 PM EST Office Visit Dermatology at [facility] [address] [place] [address] Jeremiah Preston MD [facility] [place] [address] documented as of this encounter Visit Diagnoses Not on filedocumented in this encounter Care Teams Natural Resources Manager Relationship Specialty Start Date End Date Veronica Campbell APRN [address] [place] [address] PCP - General Family Medicine 01/18/22 documented as of this encounter
--- OUTSIDE RECORDS SUMMARY | 2024-05-18 15:16 | XMS_ITS | Encounter Summary ---
Author Organization [facility] [place] [address] Care Team Providers Care Diagnostic Medical Sonographer Name Role Phone Veronica Campbell CHRISTEL Primary Care Provider [phone] Encounter Details Date Type Department Care Team (Latest Contact Info) Description 11/23/2023 Travel Social History Tobacco Use Types Packs/Day [...] 2:00 PM EDT Office [place] [address] Bernard Linares MD [facility] [place] [address] 09/07/2024 3:00 PM EST Office Visit Dermatology at [facility] [address] [place] [address] Jeremiah Preston MD [facility] [place] [address] documented as of this encounter Visit Diagnoses Not on filedocumented in this encounter Care Teams Diagnostic Medical Sonographer Relationship Specialty Start Date End Date Veronica Campbell APRN [address] [place] [address] PCP - General Family Medicine 01/18/22 documented as of this encounter
--- OUTSIDE RECORDS SUMMARY | 2024-05-18 15:16 | XMS_ITS | Encounter Summary ---
[place] [address] Care Team Providers Care Montessori Toddler Teacher Name Role Phone Adrian Veronica CHRISTEL Primary Care Provider [phone] Encounter Details Date Type Department Care Team (Late st Contact Info) Description 10/29/2023 Telephone [place] [address] Otilia Haskins Social History Tobacco Use Types Packs/Day Years [...] encounter Miscellaneous Notes * Telephone Encounter - Otilia Patel - 10/29/2023 11:56 AM EST Mattjaqueline, Patient is scheduled to have surgery on 11/26/2023 . Follow up appointment is as follows: Postoperative Follow-Up POD [address] Linares (Ok if it is +/- 2 days). Thank you!! documented in this encounter Plan of Treatment Upcoming Encounters Date Type Department Care Team (Late st Contact Info) Description 05/24/2024 2:00 PM EDT Office [place] [address] Bernard Linares MD [facility] [place] [address] 09/07/2024 3:00 PM EST Office Visit Dermatology at [facility] [address] [place] [address] Jeremiah Preston MD [facility] DR [place] [address] documented as of this encounter Visit Diagnoses Not on filedocumented in this encounter Care Teams Montessori Toddler Teacher Relationship Specialty Start Date End Date Veronica Campbell APRN [address] [place] [address] PCP - General Family Medicine 01/18/22 documented as of this encounter
--- OUTSIDE RECORDS SUMMARY | 2024-05-18 15:16 | XMS_ITS | Encounter Summary ---
Author Organization [facility] Address [facility] [place] [address] Care Team Providers Care Assembler Rubber Footwear Name Role Phone Veronica Campbell APRN Primary Care Provider [phone] Reason for Visit * Consultation (Routine) - Closed Specialty Diagnoses / Procedures Referred By Jason garcia Referred To Contact Pre-Admission Testing Diagnoses Chronic pansinusitis Hypertrophy of nasal turbinates Deviated nasal septum Coronary artery disease due to lipid rich plaque Bernard Linares MD [facility] [place] [address] [facility] [place] [address] [place] [address] Referral ID Status Reason Start Date Expiration Date V isits Requested Visits Authorized [id number] Closed Consult Only 10/25/2023 10/24/2024 1 1 Encounter Details Date Type Department Care Team (Late st Contact Info) Description 10/29/2023 10:00 AM EST Notes [place] [address] Social History Tobacco Use Types Packs/Day Years [...] 2:00 PM EDT Office Visit [place] [address] Bernard Linares MD [facility] [place] [address] 09/07/2024 3:00 PM EST Office Visit Dermatology at [place] [address] [place] [address] Jeremiah Preston MD [facility] [place] [address] Scheduled Referrals Name Type Priority Associated Diagnoses Order Schedule Anesthesia Pre-Operative Evaluation Referral Outpatient Referral Routine Chronic pansinusitis Hypertrophy of nasal turbinates Deviated nasal septum Coronary artery disease due to lipid rich plaque Ordered: 10/25/2023 documented as of this encounter Visit Diagnoses Not on filedocumented in this encounter Care Teams Assembler Rubber Footwear Relationship Specialty Start Date End Date Veronica Campbell APRN [address] [place] [address] PCP - General Family Medicine 01/18/22 documented as of this encounter
--- OUTSIDE RECORDS SUMMARY | 2024-05-18 15:16 | XMS_ITS | Encounter Summary ---
Author Organization [facility] [place] [address] Care Team Providers Care Senior Court Office Assistant Name Role Phone Veronica Campbell CHRISTEL Primary Care Provider [phone] Reason for Referral * Diagnostic Test (Routine) - Closed Specialty Diagnoses / Procedures Referred By Conttarcey garcia Referred To Contact Radiology Diagnoses Mediastinal adenopathy Multiple lung nodules on CT Procedures CT Chest wo Contrast (Generic) Paulie Velazquez MD [facility] [place] [address] [facility] [place] [address] Referral ID Status Reason Start Date Expiration Date V isits Requested Visits Authorized [id number] Closed Specialty Service Requested 08/02/2023 01/30/2025 1 1 Encounter Details Date Type Department Care Team (Late st Contact Info) Description 08/02/2023 Telephone [place] [address] Paulie Velazquez MD [facility] [place] [address] Social History Tobacco Use Types Packs/Day Years [...] encounter Miscellaneous Notes * Telephone Encounter - Paulie Velazquez MD - 08/02/2023 1:20 PM EST I spoke to Mr. Vera about the results of his bronchoscopy from 07-29-23 which showed reactive follicular hyperplasia.. Flow cytometry was negative and all cultures are negative to date. I explained the options of continued radiographic surveillance versus mediastinoscopy and we agreed with obtaining a chest CT in 6 months, or sooner if clinically indicated. All of his questions were answered andhe agrees with this plan. documented in this encounter Plan of Treatment Upcoming Encounters Date Type Department Care Team (Late st Contact Info) Description 05/24/2024 2:00 PM EDT Office Visit [place] [address] Bernard Linares MD [facility] [place] [address] 09/07/2024 3:00 PM EST Office Visit Dermatology at [facility] [address] [place] [address] Jeremiah Preston MD [facility] [place] [address] documented as of this encounter Results * CT Chest wo Contrast (Generic) (01/26/2024 2:35 PM EDT) WORKSTATION ID [id number] RAD Anatomical Region Laterality Modality Chest Computed [...] who have questions please contact the health nanny caregiver that requested your imaging first. ? Electronically signed by: Colleen Carson MD, [facility] ([phone]), at 01/26/2024 3:37 PM Narrative 01/26/2024 3:37 PM EDT EXAMINATION: CT [...] patients who have questions please contactthe health nanny caregiver that requested your imaging first. Electronically signed by: Colleen Carson MD, [facility]([phone]), at 01/26/2024 3:37 PM Paulie Velazquez MD IMG CT ORDERABL ES documented in this encounter Visit Diagnoses Diagnosis Mediastinal adenopathy Enlargement of lymph nodes Multiple lung nodules on CT Mediastinal adenopathy Enlargement of lymph nodes Multiple lung nodules on CT documented in this encounter Care Teams Senior Court Office Assistant Relationship Specialty Start Date End Date Veronica Campbell APRN [address] [place] [address] PCP - General Family Medicine 01/18/22 documented as of this encounter
--- OUTSIDE RECORDS SUMMARY | 2024-05-18 15:17 | XMS_ITS | Encounter Summary ---
[facility] Address [facility] [place] [address] Care Team Providers Care Patient Care Technician Instructor Name Role Phone Veronica Campbell CHRISTEL Primary Care Provider [phone] Reason for Visit * Reason Onset Date Comments Medication Refill 04/22/2022 Encounter Details Date Type Department Care Team (Late st Contact Info) Description 04/22/2022 Refill Cardiology at [address] [address] Pablito Hunt MD [facility] [place] [address] Medication Refill Social History Tobacco Use Types Packs/Day Years [...] encounter Miscellaneous Notes * Telephone Encounter - Conrad Jordan RN - 04/24/2022 2:26 PM EDT Appreciate call from Mrs. Vera. Several concerns voiced. First - now clearly and specifically directs new Vascepa prescription to adifferent pharmacy. Identifies the [facility] [place], [place] as their preferred site. Note routed to Jarrod Hernandez for review and signature - as Dr. Hunt is away on vacation. Will await pharmacy contact and ultimate prescription insurance coverage in making informed decisions as to whether to continue plan for Vascepa or to advocate for another agent. Agrees to call this office with any concern or update. Second - Notes that her 's symptoms of KAUR/ shortness of breath have not improved since his visit with Dr. Hunt 04/09. Scheduled for diagnostic PFT's this coming (by Mrs. Vera' report). I would be surprised if they showed COPD or something given that his symptoms come with exertion. Also notes that her recently visited his local Physician. Notes that he is sometimes dizzy and has increasing difficulty with his balance. BP normal recently at 120/70 something - which is not normal for him. Notes that Mr. Vera has been classically hypertensive despite prior medical therapy. Raza Jordan biodiesel plant superintendent Team Nurse [facility] Ambulatory Cardiology documented in this encounter Plan of Treatment Upcoming Encounters Date Type Department Care Team (Late st Contact Info) Description 05/24/2024 2:00 PM EDT Office [place] [address] Bernard Linares MD [facility] [place] [address] 09/07/2024 3:00 PM EST Office Visit Dermatology at [place] [address] [place] [address] Jeremiah Preston MD [facility] [place] [address] documented as of this encounter Visit Diagnoses Diagnosis Coronary artery disease, unspecified vessel or lesion type, unspecified whether angina present, unspecified whether [facility] or transplanted heart documented in this encounter Care Teams Patient Care Technician Instructor Relationship Specialty Start Date End Date Veronica Campbell APRN [address] [place] [address] PCP - General Family Medicine 01/18/22 documented as of this encounter
--- OUTSIDE RECORDS SUMMARY | 2024-05-18 15:17 | XMS_ITS | Encounter Summary ---
Author Organization [facility] [place] [address] Care Team Providers Care District Representative Name Role Phone Veronica Campebll APRN Primary Care Provider [phone] Encounter Details Date Type Department Care Team (Late st Contact Info) Description 06/08/2023 Ancillary Procedure [place] [address] Veronica Campbell APRN [address] [place], [place] [address] Social History Tobacco Use Types Packs/Day Years [...] 2:00 PM EDT Office [place] [address] Bernard Linares MD [facility] [place] [address] 09/07/2024 3:00 PM EST Office Visit Dermatology at [facility] [address] [place] [address] Jeremiah Preston MD [facility] [address] [place] [address] documented as of this encounter Procedures Procedure Name Priority Date/Time Associated Diagnosis Comments FILM LIBRARY STORAGE ONLY CT CHEST ABDOMEN PELVIS Routine 06/08/2023 12:00 AM EDT documented in this encounter Results * Film Library- Storage Only CT Chest Abdomen Pelvis (06/08/2023 12:00 AM EDT) Narrative [facility] - 07/20/2023 3:48 PM EDT This exam is auto-finalizing. It's purpose is for storage only. Veronica Campbell APRN [employer]Al[facility] FILM LIBRARY ORD ERABLES [place], [place] documented in this encounter Visit Diagnoses Not on filedocumented in this encounter Care Teams District Representative Relationship Specialty Start Date End Date Veronica Campbell APRN [address] [place] [address] PCP - General Family Medicine 01/18/22 documented as of this encounter
--- OUTSIDE RECORDS SUMMARY | 2024-05-18 15:17 | XMS_ITS | Encounter Summary ---
Author Organization [facility] [place] [address] Care Team Providers Care Tower Dragline Operator Name Role Phone Veronica Campbell APRN Primary Care Provider [phone] Encounter Details Date Type Department Care Team (Late st Contact Info) Description 01/05/2023 Ancillary Procedure [place] [address] Veronica Campbell APRN [address] [place], [place] [address] Social History Tobacco Use Types Packs/Day Years [...] 2:00 PM EDT Office Visit [place] [address] Bernard Linares MD [facility] [place] [address] 09/07/2024 3:00 PM EST Office Visit Dermatology at [facility] [address] [place] [address] Jeremiah Preston MD [facility] [place] [address] documented as of this encounter Procedures Procedure Name Priority Date/Time Associated Diagnosis Comments FILM LIBRARY STORAGE ONLY MR SHOULDER Routine 01/05/2023 12:00 AM EDT documented in this encounter Results * Film Library- Storage Only MR Shoulder (01/05/2023 12:00 AM EDT) Narrative [facility] - 11/08/2023 5:00 PM EST This exam is auto-finalizing. It's purpose is for storage only. Veronica Campbell APRN IMG FILM LIBRARY ORD ERABLES Performing Organization Address City/State/[facility] Co de Phone Number [place], [place] documented in this encounter Visit Diagnoses Not on filedocumented in this encounter Care Teams Tower Dragline Operator Relationship Specialty Start Date End Date Veronica Campbell APRN [address] [place] [address] PCP - General Family Medicine 01/18/22 documented as of this encounter
--- OUTSIDE RECORDS SUMMARY | 2024-05-18 15:17 | XMS_ITS | Encounter Summary ---
Author Organization [facility] [place] [address] Care Team Providers Care Refrigeration Houseman Name Role Phone Adrian Veronica CHRISTEL Primary Care Provider [phone] Encounter Details Date Type Department Care Team (Late st Contact Info) Description 06/02/2022 Telephone [place] [address] Kathryn Lovelace Social History Tobacco Use Types Packs/Day Years [...] encounter Miscellaneous Notes * Telephone Encounter - Kathryn Lovelace - 06/02/2022 9:10 AM EDT pt cancel pft as he had one from his ambulance officer and refused to have it today documented in this encounter Plan of Treatment Upcoming Encounters Date Type Department Care Team (Late st Contact Info) Description 05/24/2024 2:00 PM EDT Office Visit [place] [address] Bernard Linares MD [facility] [place] [address] 09/07/2024 3:00 PM EST Office Visit Dermatology at [facility] [address] [place] [address] Jeremiah Preston MD [facility] [place] [address] documented as of this encounter Visit Diagnoses Not on filedocumented in this encounter Care Teams Refrigeration Houseman Relationship Specialty Start Date End Date Veronica Campbell APRN [address] [place] [address] PCP - General Family Medicine 01/18/22 documented as of this encounter
--- OUTSIDE RECORDS SUMMARY | 2024-05-18 15:17 | XMS_ITS | Encounter Summary ---
Author Organization [facility] [place] [address] Care Team Providers Care Grade Foreman Name Role Phone Veronica Campbell CHRISTEL Primary Care Provider [phone] Reason for Visit * Auth/Cert Specialty Diagnoses / Procedures Referred By Jason t Referred To Contact Diagnoses CAD (coronary artery disease) Post-Op monitoring Procedures PRG CATH PLMT LEFT HEART CATH & ARTS W/INJ & ANGIO IMG S&I CARDIAC CATHETERIZATION CORONARY ANGIOGRAPHY; W LHC,POSSIBLE PCI Pablito Hunt MD [facility] [place] [address] [place] [address] [facility] Referral ID Status Reason Start Date Expiration Date Visits Re quested Visits Authorized [id number] 1 1 Encounter Details Date Type Department Care Team (Late st Contact Info) Description 02/24/2022 12:30 PM EDT - 02/24/2022 1:30 PM EDT [place] [address] Pablito Hunt MD [facility] [place] [place] [address] CARDIAC CATHETERIZATION Social History Tobacco Use Types Packs/Day Years [...] Sign Reading Time Taken Comments Blood Pressure 155/86 02/24/2022 1:30 PM EDT Pulse 73 02/24/2022 1:30 PM EDT Temperature 36.5 ??C (97.7 ??F) 02/24/2022 11:51 AM E DT Respiratory Rate 16 02/24/2022 11:51 AM EDT Oxygen Saturation 97% 02/24/2022 1:30 PM EDT Inhaled Oxygen Concentration - - Weight 100.7 kg (222 lb) 02/24/2022 11:51 AM EDT Height 175.3 cm (5' 9) 02/24/2022 11:51 AM EDT Body Mass Index 32.33 02/24/2022 11:51 AM EDT documented in this encounter Discharge Summaries * Chetan Hutchison MD - 02/25/2022 10:15 AM EDT Images from the original note were not included. Discharge Summary Patient Name: Conrad Vera Patient Age: 66 y.o. Language: [place] Race: White Ethnicity: Not nor Admit date: 02/24/2022 Discharge date and time: 02/25/2022 1030 AM Attending Physician: Pablito Hunt MD Discharge Physician: Chetan Hutchison MD Follow-up Recommendations for Providers: - dual antiplatelet regimen as follows: - aspirin 81 mg daily lifelong - clopidogrel 75 mg daily for 6 months after PCI for stable ischemic heart disease - recommend follow up with cardiology in 3-4 weeks Inpatient Provider Contact Information: Pablito Hunt MD - attending Chetan Hutchison MD - Fellow Discharge Diagnoses (Hospital Problems) and Secondary Diagnoses (Chronic Problems): Active Hospital Problems Diagnosis ??? CAD (coronary artery disease) History of remote CABG TTE 09/07/2019 ([facility]): TTE 01/20/2022 ([facility]): Resolved Hospital Problems No resolved problems to display. Active Non-Hospital Problems Diagnosis ??? SOB (shortness of breath) ??? Hypertension ??? Gout ??? Peptic disease ??? Diabetes mellitus ??? Kidney stones ??? Obesity ??? Memory loss ??? Coronary artery disease involving coronary bypass graft ??? Diverticular disease Operations/Major Procedures: Operations: Procedure(s): CARDIAC CATHETERIZATION CORONARY ANGIOGRAPHY; W LHC,POSSIBLE PCI History of Presentation: 66 y/o male PMH CAD s/p CABG (FOREMAN to LAD, SVG to RCA, SVG to OM), HTN, HLD, DM who presents with KAUR and angina. ?? Patient last saw Dr. Hunt on on 01/29/2022 for typical anginal symptoms. Given history and typical symptoms he was referred for cardiac catheterization. ?? Patient was found to have a significant stenosis of the ostial LCX, LAD, and mid RCA. The FOREMAN to LAD was patent. The SVG To RCA had a significant lesion with decreased flow and the SVG to OM was occluded. Decision was made to intervene on the cachil dehe ostial LCx and mid RCA given that both SVG grafts were compromised. ?? Patient received x1 AARON to the LCx with good angiographic and IVUS results. The mid to distal RCA received x3 AARON with good angiographic and IVUS results. The patient was given 600 mg Plavix in the lab. There were no immediate complications. ?? This patient is admitted post PCI for IV hydration, pain management, access site management in the setting of anticoagulation, telemetry monitoring, evaluation of their medical condition, and cardiacrehabilitation. Hospital Course: The patient was admitted following cardiac catheterization for overnight monitoring and observation. The patient did well overnight without significant chest pain or arrhythmias on telemetry. The right femoral access site was evaluated and the R femoral pulse was palpable with no evidence of vascular compromise to the right groin. A repeat ECG was reviewed with no evidence of active ischemia. VS and renal function remained stable. The patient ambulated with nursing without chest discomfort or exertional dyspnea. The patient met criteria for discharge, and was released home in stable condition. Functional and Cognitive Status: Independent in ALDs and IADLs, A&O x 3, at baseline Important Studies and Lab Data: Labs: Lab Results Component Value Date WBC 8.3 02/25/2022 HGB 12.3 (L) 02/25/2022 HCT 35.0 (L) 02/25/2022 PLATELET 107 (L) 02/25/2022 No results for input(s): INR in the last 168 hours. Lab Results Component Value Date NA 135 02/25/2022 K 4.1 02/25/2022 CL 102 02/25/2022 CO2 22 02/25/2022 BUN 14 02/25/2022 CREATININE 1.12 02/25/2022 No results for input(s): CK, TROPONINT in the last 168 hours. Lab Results Component Value Date CHLPL 100 02/25/2022 HDL 20 02/25/2022 CHOLHDL 5.0 02/25/2022 TRIG 420 02/25/2022 LDLCHOL Not Calculated 02/25/2022 LDLDIRECT 28 02/25/2022 Studies: Cath Report Coronary Angiography: Dominance: Right Left Main There was a 70% stenosis of the distal segment of the left main artery. Left Anterior Descending There was a 70% diffuse stenosis of the ostial segment of the left anterior descending artery (LAD). Distal flow was via a bypass graft. There was a 75% diffuse stenosis of the proximal segment of the first diagonal branch (Diagonal 1) of the LAD. Left Circumflex There was an 80% stenosis of the ostial segment of the left circumflex artery (LCX). Right Coronary Artery There was a 75% stenosis of the mid segment of the right coronary artery (RCA). The distal segment of the RCA had 65% stenosis. There was a 75% stenosis of the ostial segment of the right posterior descending branch (RPDA) of the RCA. The mid 1 segment of the RPDA had 75% stenosis. Bypass Grafts: There was a total of three bypass grafts evaluated during this procedure. 1. Left internal mammary artery graft to the LAD There was a left internal mammary artery graft with a single anastomosis to the left anterior descending artery (LAD). There was no evidence of obstruction in this graft. Distal flow was normal. 2. Saphenous vein graft to the RCA There was a saphenous vein graft with a single anastomosis to the right coronary artery (RCA). There was a severe diffuse (>=75% stenosis) disease of the entire graft. Distal flow was decreased. 3. Saphenous vein graft to the OM1 There was a saphenous vein graft with a single anastomosis to the first obtuse marginal branch (OM1) of the LCX. There was a single discrete total occlusion of the ostial portion of the segment of this graft between the origin of this graft and the OM1. Intravascular Imaging/Physiology: Intravascular Ultrasound was performed in the distal LM using a 6 Fr EBU 3.5 guiding catheter and a 3.5 Fr [employer] [place] [place] [address] 20 Mhz using auto 1 mm/sec pullback. Imaging was successful. Image quality was good. The distal LM showed severe diffuse atherosclerotic plaque. Post Intervention: The stent was well expanded and apposed. Intravascular Ultrasound was performed in the ostial RPDA using a 6 Fr AL 1 guiding catheter and a 3.5 Fr [employer] [place] [employer] [place] 20 Mhz using Manual pullback. Imaging was successful. Image quality was good. The ostial RPDA showed severe diffuse atherosclerotic plaque. Post Intervention: The stent was well expanded and apposed. Indication for Intervention: Coronary intervention was indicated for treatment of stable angina. The priority for the procedure was Elective. The NCDR indication for the procedure was Stable angina. Syntax Score was Low. Initial PCI was performed for multivessel disease. Intervention Summary: Left Main Artery Distal 70% Stent insertion was performed on the 70% stenosis in the distal segment of the left main. This was a de negar lesion. According to the ACC/AHA classification system, this lesion was a type B2 high risk lesion. Primary prevention of restenosis was the indication for stent insertion. This was the culprit lesion. A guidewire was placed across this lesion. Vessel flow pre intervention was RONN 3. Lesion length was 16mm. This lesion was contiguous with LCX-ostial. The lesion involves a bifurcation with the LAD. This bifurcation lesion was treated with a single stent, side branch jailed and not treated technique. Stent insertion was accomplished through a 6 Fr. EBU 3.5 guide. The lesion was predilated with a 3.00mm NC EUPHORA 20 MM balloon with a maximum inflation pressure of 14 atmospheres. A premounted 4.00 x 20 mm Synergy XD (AARON) was deployed with a maximum inflation pressure of 14 atmospheres. Following stent deployment, the lesion was dilated using a 4.50mm NC EMERGE 06 MM balloon with a maximum inflation pressure of 14 atmospheres. The final outcome was defined as successful. There was no residual stenosis following this intervention. The final RONN flow was 3. Right Coronary Artery Mid 75% Stent insertion was performed on the 75% stenosis in the mid segment of the RCA. This was a de negar lesion. This lesion was designated a type B2 high risk lesion based on ACC/AHA classification system. Primary prevention of restenosis was the indication for stent insertion. This was the culprit lesion. A guidewire was placed across this lesion. Vessel flow pre intervention was RONN 3. Lesion length was 16mm. Stent insertion was accomplished through a 6 Fr. AL 1 guide. The lesion was predilated with a 2.50mm NC EUPHORA 12 MM balloon with a maximum inflation pressure of 12 atmospheres. A premounted 4.00 x 20 mm Synergy XD (AARON) was deployed with a maximum inflation pressure of 12 atmospheres. The final outcome was defined as successful. There was no residual stenosis following this intervention. The final RONN flow was 3. Distal 65% Stent insertion was performed on the 65% stenosis in the distal segment of the RCA. This was a de negar lesion. According to the ACC/AHA classification system, this lesion was a type B2 high risk lesion. Primary prevention of restenosis was the indication for stent insertion. This was the culprit lesion. A guidewire was placed across this lesion. Vessel flow pre intervention was RONN 3. Lesion length was 18mm. Stent insertion was accomplished through a 6 Fr. AL 1 guide. A premounted 3.50 x 16 mm Synergy XD (AARON) was deployed with a maximum inflation pressure of 14 atmospheres. The final outcome was defined as successful. There was no residual stenosis following this intervention. The final RONN flow was 3. Right Posterior Descending Branch of the RCA Ostial 75% Stent insertion was performed on the 75% stenosis in the ostial segment of the RPDA. This was a de negar lesion. This lesion was designated a type C high risk lesion based on ACC/AHA classification system. Primary prevention of restenosis was the indication for stent insertion. This was the culprit lesion. Vessel flow pre intervention was RONN 3. Lesion length was 18mm. Stent insertion was accomplished through a 6 Fr. AL 1 guide. The lesion was predilated with a 2.50mm NC EUPHORA 12 MM balloon with a maximum inflation pressure of 12 atmospheres. A premounted 2.25 x 28 mm Synergy XD (AARON) was deployed with a maximum inflation pressure of 14 atmospheres. Following stent deployment, the lesion was dilated using a 3.50mm NC EMERGE 12 MM balloon with a maximum inflation pressure of 14 atmospheres. The final outcome was defined as successful. There was no residual stenosis following this intervention. The final RONN flow was 3. Mid 1 75% Stent insertion was performed on the 75% stenosis in the mid 1 segment of the RPDA. This was a de negar lesion. According to the ACC/AHA classification system, this lesion was a type B2 moderate risk lesion. Primary prevention of restenosis was the indication for stent insertion. This was the culprit lesion. A guidewire was placed across this lesion. Vessel flow pre intervention was RONN 3. Lesion length was 14mm. Stent insertion was accomplished through a 6 Fr. AL 1 guide. A premounted 2.00 x 12 mm Resolute ARIK (AARON) was deployed with a maximum inflation pressure of 14 atmospheres. The final outcome was defined as successful. There was no residual stenosis following this intervention. The final RONN flow was 3. Pending Studies and Lab Data: None Discharge Conditions/Prognosis: Good Discharge to: Home Updated Allergies/ADRs: Allergies Allergen Reactions ??? Red Blood Cells Antibodies-Difficult to Crossmatch DO NOT REMOVE Please contact the Blood Bank at [phone] for questions. ??? Amoxicillin-Pot Clavulanate CIS - [...] GI shutdown, CIS - causes GI shutdown Immunizations Given this Hospitalization: Immunization History Administered Date(s) Administered ??? Influenza Vaccine (Novel) [id number], Injectable 07/28/2009 ??? Influenza Vaccine, Whole 07/27/2005, 07/21/2006, 07/28/2009 ??? Moderna Covid-19 Vaccine (100mcg/0.5ml) 12/02/2020, 12/30/2020, 07/24/2021, 01/01/2022 Discharge Medications: Your Medications Continued medications with new dosing Dose Details atorvastatin 20 mg Tab Commonly known as: Lipitor Take 1 tablet by mouth nightly. What changed: ?? medication strength ?? how much to take 20 mg Quantity: 90 tablet Refills: 3 Continued medications, unchanged Dose Details allopurinoL 300 mg Tab Commonly known as: Zyloprim 300 mg, PO, Once daily Refills: 0 amLODIPine 5 mg Tab Commonly known as: Norvasc Take 1 tablet by mouth daily. 5 mg Quantity: 30 tablet Refills: 3 aspirin EC 81 mg Tbec Take 81 mg by mouth daily. 81 mg Refills: 0 Cozaar 50 mg Tab 50 mg, PO, Once daily Generic drug: losartan Refills: 0 isosorbide mononitrate CR 30 mg Tablet sr Commonly known as: Imdur Take 1 tablet by mouth daily. 30 mg Quantity: 30 tablet Refills: 3 metFORMIN 500 mg Tab Commonly known as: Glucophage 500 MG = 1 Tablet(s), PO, Once daily Refills: 0 nitroGLYcerin 0.4 mg Subl Commonly known as: Nitrostat Place 0.4 mg under the tongue every 5 minutes as needed for Chest pain. 0.4 mg Refills: 0 Trulicity 1.5 mg/0.5 mL Pnij Generic drug: dulaglutide Refills: 0 Smoking Status at Discharge: Social History Tobacco Use Smoking Status Former Smoker ??? Packs/day: 1.50 ??? Years: 15.00 ??? Pack years: 22.50 ??? Quit date: 09/02/1985 ??? Years since quittin.5 Smokeless Tobacco Never Used Instructions Given to Patient at Discharge: Patient Instructions ??? You will be starting a new medication called clopidogrel. It is 75 mg a day. Please remember totake this medication with your aspirin everyday for at least 6 months. ??? I would recommend increasing your atorvastatin to 20 mg daily. This will help with your coronary disease. General Instructions None Future Appointments and Orders Follow-up Return in about 4 weeks (around 03/25/2022). Discharge References/Attachments CAD (Coronary Artery Disease): General Info ([place]) PCI (Percutaneous Coronary Intervention): Post-op ([place]) Chetan Hutchison MD Interventional Cardiology 02/25/22 5:[address] [facility] [place] [facility] Pager: [phone] documented in this encounter Discharge Instructions * Patient Instructions* Chetan Hutchison MD - 02/25/2022 8:08 AM EDT You will be starting a new medication called clopidogrel. It is 75 mg a day. Please remember to take this medication with your aspirin everyday for at least 6 months. I would recommend increasing your atorvastatin to 20 mg daily. This will help with your coronary disease. * Attachments The following attachments cannot be sent through Care Everywhere. * CAD (Coronary Artery Disease): General Info ([place]) * PCI (Percutaneous Coronary Intervention): Post-op ([place]) documented in this encounter Medications at Time of Discharge Medication Sig Dispensed Refills Start Date End Date atorvastatin (Lipitor) 20 mg Tablet Take 1 [...] mouth 2 times daily (with meals). 12/12/2010 Trulicity 1.5 mg/0.5 mL Pen Injector 12/07/2021 11/18/2023 amLODIPine (Norvasc) 5 mg Tablet Take 1 tablet by mouth daily. 30 tablet 3 01/29/2022 06/02/2023 isosorbide mononitrate CR (Imdur) 30 mg Tablet Sustained Release 24 hr Take 1 tablet by mouth daily. 30 tablet 3 01/29/2022 06/02/2023 documented as of this encounter H&P Notes * Chetan Hutchison MD - 02/24/2022 3:24 PM EDT Images from the original note were not included. Interventional Cardiology Post-PCI H&P Reason for Admission: s/p PCI History: 66 y/o male PMH CAD s/p CABG (FOREMAN to LAD, SVG to RCA, SVG to OM), HTN, HLD, DM who presents with KAUR and angina. Patient last saw Dr. Hunt on on 01/29/2022 for typical anginal symptoms. Given history and typical symptoms he was referred for cardiac catheterization. Patient was found to have a significant stenosis of the ostial LCX, LAD, and mid RCA. The FOREMAN to LAD was patent. The SVG To RCA had a significant lesion with decreased flow and the SVG to OM was occluded. Decision was made to intervene on the cachil dehe ostial LCx and mid RCA given that both SVG grafts were compromised. Patient received x1 AARON to the LCx with good angiographic and IVUS results. The mid to distal RCA received x3 AARON with good angiographic and IVUS results. The patient was given 600 mg Plavix in the lab. There were no immediate complications. This patient is admitted post PCI for IV hydration, pain management, access site management in the setting of anticoagulation, telemetry monitoring, evaluation of their medical condition, and cardiacrehabilitation. PMH: Patient Active Problem List Diagnosis ??? SOB (shortness of breath) ??? CAD (coronary artery disease) History of remote CABG TTE 09/07/2019 ([facility]): TTE 01/20/2022 ([place]): ??? Hypertension ??? Gout ??? Peptic disease ??? Diabetes mellitus ??? Kidney stones ??? Obesity ??? Memory loss ??? Coronary artery disease involving coronary bypass graft ??? Diverticular disease Outpatient Medications Marked as Taking for the 02/24/22 encounter (Hospital Encounter) Medication Sig Dispense Refill ??? Trulicity 1.5 mg/0.5 mL Pen Injector ??? aspirin EC 81 mg Tablet, Delayed Release (E.C.) Take 81 mg by mouth daily. ??? allopurinol (ZYLOPRIM) 300 mg tablet 300 mg, PO, Once daily ??? losartan (COZAAR) 50 mg tablet 50 mg, PO, Once daily ??? metFORMIN (GLUCOPHAGE) 500 mg tablet 500 MG = 1 Tablet(s), PO, Once daily ??? atorvastatin (LIPITOR) 10 mg tablet 10 MG = 1 Tablet(s), PO, QHS Allergies as of 01/30/2022 - Review Complete 01/29/2022 Allergen Reaction Noted ??? Amoxicillin-pot clavulanate ??? Colchicine ??? Metronidazole ??? Opioids - morphine analogues ??? Opioids-meperidine and related ??? Opioids-methadone and related Social History Socioeconomic History ??? Marital status: Spouse name: Not on file ??? Number of children: Not on file ??? Years of education: Not on file ??? Highest education level: Not on file Occupational History ??? Not on file Tobacco Use ??? Smoking status: Former Smoker Packs/day: 1.50 Years: 15.00 Pack years: 22.50 Quit date: 09/02/1985 Years since quittin.5 ??? Smokeless tobacco: Never Used Substance and Sexual Activity ??? Alcohol use: Yes Alcohol/week: 4.0 standard drinks Types: 2 Glasses of wine, 2 Cans of beer per week Comment: rare ??? Drug use: No ??? Sexual activity: Not on file Other Topics Concern ??? Not on file Social History Narrative ??? Not on file Social Determinants of Health Financial Resource Strain: Not on file Food Insecurity: Not on file Transportation Needs: Not on file Physical Activity: Not on file Housing Stability: Not on file Physical Exam BP (!) 149/91 Pulse 73 Temp 36.5 ??C (97.7 ??F) (Temporal) Resp 11 Ht 175.3 cm (5' 9) Wt100.7 kg (222 lb) SpO2 96% BMI 32.78 kg/m?? General: well-appearing, NAD HEENT: NC/AT, anicteric sclerae, OP clear, MMM Neck: supple, no LAD, no bruits or JVD Lungs: clear without W/R/R CV: RRR, S1, S2, no M/R/G Abd: Nl BS, soft, NT, ND, obese Ext: no C/C/Edema Vascular: 2+ radial, femoral, and intact distal pulses b/l, R femoral access perclosed Assessment/ Plan: 1. CAD, s/p PCI to RCA and LCx - admit for overnight monitoring - telemetry, serial ECGs, - continue dual antiplatelet therapy - IVF - continue ARB and statin - monitor access site - cardiac rehab consult - anticipate discharge in am -will need new RX for Plavix at DC 2. HTN, follow up trend and titrate therapy PRN. 3. Dyslipidemia, follow up AM labs and address medication dose before DC home. May need to increaseatorvastatin 4. DM, metformin held, ISS planned Chetan Hutchison MD Interventional Cardiology P: [phone] Chetan Hutchison MD 02/24/2022 3:24 PM Associated attestation - Pablito Hunt MD - 02/25/2022 11:46 AM EDT Images from the original note were not included. I have seen the patient and reviewed the above history/examination and I agree with the details as written. I have personally reviewed all available ECG tracings, echo images and prior cath films. The assessment and plan were formulated in discussion with me and I agree with them as documented. Pablito Hunt MD 02/25/2022 11:46 AM * Chase Hatfield MD - 02/24/2022 11:51 AM EDT Images from the original note were not included. Cardiology H&P Pre Cardiac Catheterization Note Conrad Vera is a 66 y.o. male who presents for cardiac catheterization in the setting of worsening exertional dyspnea. He has a past medical history notable for coronary artery disease status post CABG (remote) with FOREMAN-LAD, SVG-OM, SVG-RCA), as well as diabetes, hypertension, hyperlipidemia. Conrad Vera has no planned upcoming surgeries. No recent or ongoing bleeding events. No black stools. Patient Vitals for the past 24 hrs: Temp Pulse Resp BP SpO2 O2 Device 02/24/22 1151 36.5 ??C (97.7 ??F) 74 16 (!) 181/91 99 % RA Gen: Pleasant male in no apparent distress, able to lay flat Cardiac: regular rate, s1/s2 normal character and amplitude, no murmurs, rubs, or gallops. JVP not elevated Pulm: Clear to auscultation bilaterally, no increased work of breathing Ext: Palpable radial and femoral pulses bilaterally. Palpable DP pulses bilaterally Neuro: no appreciated focal deficit ASA: 3: Patient with severe systemic disease Mallampati: III: only the base of the uvula can be seen Recent CBC Recent Labs 01/29/22 1354 WBC 8.8 HGB 13.9 HCT 39.9* PLATELET 125* Recent BMP Recent Labs 01/29/22 1354 NA 137 K 4.4 CL 104 CO2 21* BUN 13 CREATININE 1.03 The indications, expected benefits, and potential risks of heart catheterization were reviewed in detail with the patient. The potential for , heart attack, stroke, kidney failure, hemorrhage, allergic reaction, vascular complications and infection were reviewed in detail. The possibility of stenting and other percutaneous intervention, with associated risk, was reviewed. The possible need for emergent coronary artery bypass surgery was reviewed. Alternatives were discussed and the patient's questions were answered in full. Following this discussion, the patient consented to the procedure and signed a form attesting to this, which is in the chart. Plan: Coronary Angio for left heart catheterization No C/I to long-term DAPT Moderate Sedation OK Chase Hatfield MD 02/24/2022 Associated attestation - Pablito Hunt MD - 02/24/2022 5:45 PM EDT Images from the original note were not included. I have seen the patient and reviewed the above history/examination and I agree with the details as written. I have personally reviewed all available ECG tracings, echo images and prior cath films. The assessment and plan were formulated in discussion with me and I agree with them as documented. Pablito Hunt MD 02/24/2022 5:45 PM documented in this encounter Miscellaneous Notes * Consult Note - Vane Villalta RN - 02/25/2022 9:50 AM EDT Conrad Vera was seen today by Cardiac Rehabilitation for: SD/PCI Activity evaluation - Ambulating around 4E. No sx. Does not do stairs. Educational packet regarding CAD, cardiac risk factors, and managing angina given to the patient. Raza participated in cardiac rehab after his CABG. He does not do any formal exercise. I putter. Given parameters for home exercise. Reviewed managing angina /use of sl nitroglycerin. Participation in an outpatient cardiac rehabilitation program at [facility] was discussed. Patient declines a referral at this time. Enc him to contact his chart clerk should he change his mind. * Plan of Care - Margareth Owen RN - 02/25/2022 6:15 AM EDT OUTCOME EVALUATION NOTE: OUTCOME SUMMARY: Pt A+Ox4, denies CP or SOB. R. Groin site, clean/dry/intact, (-)pain, (- )hematoma. Glucose 287, correction insulin ordered, 4 units given, re-check 208. Pt reported right big toe pain, throbbing, 5/10, (+)CMS, PRN Tylenol ordered and given. Pt reported acid reflex, Tums ordered and given. 14 beat Vtach at 2300, asymptomatic. PLAN MOVING FORWARD: Discharge today,02/25 INDIVIDUALIZED FALL PREVENTION INTERVENTIONS: Patient-specific fall risk factors per assessment: [current deficits]: toe pain, KAUR, tele wires, unfamiliar environment Assistance [level of assistance required for transfers and ambulation]: SBA Surveillance [continuous indirect monitoring]: Tele, purposeful hourly rounding, call nuñez in reach Patient-specific fall prevention interventions for sensory deficits provided, if applicable: bed lowered,lighting adjusted appropriately for tasks, non-skid socks when out of bed CPG GOAL OUTCOME EVALUATION: ongoing documented in this encounter Plan of Treatment Upcoming Encounters Date Type Department Care Team (Late st Contact Info) Description 05/24/2024 2:00 PM EDT Office [place] [address] Bernard Linares MD [facility] [place] [address] 09/07/2024 3:00 PM EST Office Visit Dermatology at [facility] [address] [place] [address] Jeremiah Preston MD [facility] [address] [place] [address] documented as of this encounter Procedures Procedure Name Priority Date/Time Associated Diagnosis Comments POCT GLUCOSE Routine 02/25/2022 7:21 AM EDT EKG 12-LEAD Routine 02/25/2022 6:02 AM EDT Coronary artery disease due to lipid rich plaque BMP W/FASTING GLUCOSE Routine 02/25/2022 4:30 AM EDT HEMOGRAM Routine 02/25/2022 4:30 AM EDT DIFFERENTIAL, AUTOMATED Routine 02/26/20 4:30 AM EDT HC CBC,PLT & AUTO DIFF Routine 4:30 AM EDT LDL CHOLESTEROL, DIRECT Routine 02/26/20 4:30 AM EDT LIPID PANEL (REFLEX DIRECT LDL) Routine 02/25/2022 4:30 AM EDT POCT GLUCOSE Routine 02/24/2022 11:39 PM EDT POCT GLUCOSE Routine 02/24/2022 8:51 PM EDT POCT GLUCOSE Routine 02/24/2022 6:40 PM EDT COVID-19 PCR Routine 02/24/2022 4:54 PM EDT Encounter for preprocedure screening laboratory testing for COVID-19 EKG 12-LEAD Routine 02/24/2022 3:39 PM EDT Coronary artery disease due to lipid rich plaque CARDIAC CATHETERIZATION Routine 02/25/20 3:08 PM EDT Coronary artery disease due to lipid rich plaque POCT GLUCOSE Routine 02/24/2022 2:58 PM EDT Cath Plmt Left Heart Cath & Arts W/Inj & Angio Img S&I ([id number]) 02/24/2022 12:26 PM EDT Coronary artery disease due to lipid rich plaque POCT GLUCOSE Routine 02/24/2022 12:01 PM EDT documented in this encounter Results * (ABNORMAL) POCT Glucose (02/25/2022 7:21 AM EDT) [facility] Glucose, POC 235(H) 65 - 199 mg/dL [facility] Comment: Supplemental ranges: <140 mg/dL before meals <180 mg/dL all other times of the day Blood 02/25/2022 7:21 AM EDT 02/25/2022 7:21 AM EDT Pablito Hunt MD POINT OF CARE TEST O RDERABLES [facility] [place] [address] * EKG 12 Lead (02/25/2022 6:02 AM EDT) [facility] Ventricular rate 73 BPM MUSE SYSTEM Atrial Rate 73 BPM MUSE SYSTEM P-R Interval 146 ms MUSE SYSTEM QRS Duration 96 ms MUSE SYSTEM Q-T Interval 394 ms MUSE SYSTEM QTC Calculated (Bezet) 434 ms MUSE SYSTEM Calculated P [place] 22 degrees MUSE SYSTEM Calculated R [place] -16 degrees MUSE SYSTEM Calculated T [place] 51 degrees MUSE SYSTEM INTERPRETATION Normal sinus rhythm Possible ??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) Poor R-wave progression Abnormal ECG When compared with ECG of 24-FEB-2022 15:39, (unconfirmed) No significant change was found I personally reviewed the tracing and edited the fellows interpretation Confirmed by fellow Senser, Thaddeus Bess ([id number]) on 02/25/2022 2:30:46 PM Confirmed by MD James, Pablito ([id number]) on 02/25/2022 3:03:12 PM MUSE SYSTEM 02/25/2022 6:02 AM EDT 02/25/2022 3:03 PM EDT Pablito Hunt MD ECG ORDERABLES MUSE SYSTEM * LDL Cholesterol, Direct (02/25/2022 4:30 AM EDT) Pathologist [facility] [place] LDL Cholesterol, Direct 28 mg/dL [facility] Comment: Lowest Risk: <100 mg/dL Lower Risk: 100-129 mg/dL Borderline High Risk: 130-159 mg/dL High Risk: 160-189 mg/dL Very High Risk: >ur=797 mg/dL Blood 02/25/2022 4:30 AM EDT 02/25/2022 4:39 AM EDT Narrative Resulting Agency Comment Spec In Lab Chetan Hutchison MD CHEMISTRY ORDERABLES Performing Organization Address City/[facility]/ZIP Co de Phone Number [facility] [place] [address] * Differential, Automated (02/25/2022 4:30 AM EDT) Neutrophil % 68.9 % [facility] Neutrophil Absolute 5.70 1.70 - 6.10 x10(3)/[facility] Lymph % 20.2 % [facility] Lymphocytes Abs 1.7 0.9 - 3.2 x10(3)/[facility] Monocyte % 7.1 % [facility] Monocyte Abs 0.6 0.3 - 0.9 x10(3)/[facility] Eos % 2.7 % [facility] Eosinophils Abs 0.2 0.0 - 0.4 x10(3)/[facility] Basophil % 0.6 % [facility] Baso Absolute 0.0 0.0 - 0.1 x10(3)/[facility] Immature Gran % 0.50 % [facility] Comment: Immature granulocytes(IG's)percentage and absolute count will include metamyelocytes, myelocytes, and promyelocytes. Blood smears from CBCs yielding IG's will be scanned manually for concordance. If this scan disagrees with the automated IG or if promyelocytes are noted, a manual differential will be performed. Immature Gran Absolute 0.04 0.00 - 0.04 x10(3)/[facility] Blood 02/25/2022 4:30 AM EDT 02/25/2022 4:39 AM EDT Narrative Resulting Agency Comment Spec In Lab Chetan Hutchison MD HEMATOLOGY ORDERABLE S [facility] [place] [address] * (ABNORMAL) Hemogram (02/25/2022 4:30 AM EDT) White Blood Cell 8.3 4.0 - 9.5 x10(3)/mc L [facility] Red Blood Cell 3.88(L) 4.58 - 5.54 x10(6)/mc L [facility] Hemoglobin 12.3(L) 13.7 - 16.5 g/dL [facility] Hematocrit 35.0(L) 40.5 - 48.5 % [facility] Mean Cell Volume 90.2 82.9 - 93.1 fL [facility] Mean Cell Hemoglobin 31.7 27.5 - 32.1 pg [facility] Mean Cell Hemoglobin Concentration 35.1 32.0 - 35.7 g/dL [facility] Platelet 107(L) 145 - 357 x10(3)/mc L [facility] RDW Standard Deviation 43.2 36.0 - 45.0 fL [facility] RDW coefficient of variation 13.3 11.4 - 13.8 % [facility] Mean Platelet Volume 11.1 7.6 - 12.9 fL [facility] NRBC% auto 0.0 % [facility] NRBC Absolute 0.000 0.000 - 0.000 x10(3)/mc L [facility] Blood 02/25/2022 4:30 AM EDT 02/25/2022 4:39 AM EDT Narrative Resulting Agency Comment Spec In Lab Chetan Hutchison MD HEMATOLOGY ORDERABLE S [facility] [place] [address] * Lipid Panel (Reflex Direct LDL) (02/25/2022 4:30 AM EDT) Cholesterol, Total 100 mg/dL [facility] Comment: Lower Risk: <200 mg/dL Average Risk: 200-239 mg/dL Higher Risk: >hc=573 mg/dL Triglyceride 420 mg/dL [facility] Comment: Average Risk/Lower Risk: <150 mg/dL Borderline High Risk: 150-199 mg/dL High Risk: 200-499 mg/dL Very High Risk: >kv=672 mg/dL HDL Cholesterol 20 mg/dL [facility] Comment: Males: ?? Higher Risk: <40 mg/dL Females: ?? Higher Risk: <50 mg/dL LDL Cholesterol Not Calculated [facility] Comment: Lowest Risk: <100 mg/dL Lower Risk: 100-129 mg/dL Borderline High Risk: 130-159 mg/dL High Risk: 160-189 mg/dL Very High Risk: >da=841 mg/dL Cholesterol/HDL Ratio 5.0 ratio [facility] Lipid Interpretation See Note [facility] Comment: Lipid management should be guided by a patient? s ASCVD risk, goals and preferences. ACC/AHA Guidelines recommend high intensity statin if clinical ASCVD or LDL greater than or equal to 190 mg/dL. http://[employer].com/IXA-RWC-Zaqaifvpp Adults aged 40-75 with LDL 70-189 mg/dL should have their 10 year ASCVD risk estimated with the ACC/AHA ASCVD risk printing estimator http://tools.acc.org/AQDLD-Kptg-Qdtyfwgpv/ Statin should be discussed if risk greater than or equal to 7.5% in non-diabetics. With diabetes, moderate intensity statin is recommended if risk less than 7.5%, high intensity if risk greater than or equal to 7.5%. Annual lipid monitoring on statins is not necessary. Evaluate secondary causes of Triglycerides greater than 500 mg/dL or LDL greater than 190 mg/dL: See table 6 of ACC/AHA Guideline. Lifestyle modification is a critical component of ASCVD risk reduction. Blood 02/25/2022 4:30 AM EDT 02/25/2022 4:39 AM EDT Narrative Resulting Agency Comment Spec In Lab Pablito Hunt MD CHEMISTRY ORDERABLES [facility] [place] [address] * (ABNORMAL) BMP w/fasting Glucose (02/25/2022 4:30 AM EDT) Glucose Fasting 200(H) 65 - 99 mg/dL [facility] Comment: ?Fasting* Glucose Interpretive Criteria Normal ?65-99 mg/dL Impaired Fasting glucose ?100-125 mg/dL Consistent with Diabetes Mellitus ? >or= 126 mg/dL *Fasting is defined as no caloric intake for at least 8 hours In the absence of unequivocal hyperglycemia a plasma glucose value of >or= 126 mg/dL should be repeated on a subsequent day. Diagnosis and Classification of Diabetes Mellitus, Position Statement from the [place] [employer] Association. ??Diabetes Care, Volume 33, Supplement 1, Sep 2009 Blood Urea Nitrogen 14 10 - 20 mg/dL [facility] Creatinine 1.12 0.80 - 1.50 mg/dL [facility] Sodium 135 135 - 145 mmol/L [facility] Potassium 4.1 3.5 - 5.0 mmol/L [facility] Comment: Please note: ??Patients with WBC >100,000 may have falsely elevated Potassium levels. ??For accurate Potassium quantification in these patients send serum separator tube (gold top) for subsequent determinations. ??Contact the Clinical Chemistry Laboratory if there are any questions. Chloride 102 98 - 107 mmol/L [facility] Carbon Dioxide 22 22 - 31 mmol/L [facility] Anion Gap 11 5 - 15 mmol/L [facility] Calcium 9.3 8.5 - 10.5 mg/dL [facility] Est Glomerular Filtration Rate 67 >=60 mL/min/1. 73 m?? [facility] Comment: This patient? s estimated glomerular filtration rate (eGFR) is between 67 mL/min/1.73 m2 (patients with less muscle mass per kg body weight) and 78 mL/min/1.73 m2 (patients with more muscle mass per kg body weight) as determined by the CKD-EPI equation. Assessment of eGFR is not appropriate when creatinine concentrations are rapidly changing. For clinical decisions where creatinine clearance will affect therapy, a 24-hour urine creatinine clearance may be advised. Assignment of CKD stage 1 - 5 for patients with an eGFR near the transition point between stages may be based on clinical assessment of muscle mass and symptoms in addition to eGFR. Blood 02/25/2022 4:30 AM EDT 02/25/2022 4:39 AM EDT Narrative Resulting Agency Comment Spec In Lab Pablito Hunt MD CHEMISTRY ORDERABLES [facility] [place] [address] * (ABNORMAL) POCT Glucose (02/24/2022 11:39 PM EDT) Glucose, POC 208(H) 65 - 199 mg/dL [facility] Comment: Supplemental ranges: <140 mg/dL before meals <180 mg/dL all other times of the day Blood 02/24/2022 11:3 9 PM EDT 02/24/2022 11:39 PM EDT Pablito Hunt MD POINT OF CARE TEST O LEIF Performing Organization Address City/[facility]/ZIP Co de Phone Number [facility] [place] [address] * (ABNORMAL) POCT Glucose (02/24/2022 8:51 PM EDT) Glucose, POC 287(H) 65 - 199 mg/dL [facility] Comment: Supplemental ranges: <140 mg/dL before meals <180 mg/dL all other times of the day Blood 02/24/2022 8:51 PM EDT 02/24/2022 8:51 PM EDT Pablito Hunt MD POINT OF CARE TEST O LEIF Performing Organization Address [facility]/ZIP Co de Phone Number [facility] [place] [address] * POCT Glucose (02/24/2022 6:40 PM EDT) Glucose, POC 111 65 - 199 mg/dL [facility] Comment: Supplemental ranges: <140 mg/dL before meals <180 mg/dL all other times of the day Blood 02/24/2022 6:40 PM EDT 02/24/2022 6:40 PM EDT Pablito Hunt MD POINT OF CARE TEST O LEIF [facility] [place] [address] * COVID-19 PCR (02/24/2022 4:54 PM EDT) SARS-CoV-2 RNA Not Detected Not Detected [facility] Comment: This result should be interpreted in combination with the clinical observations, patient history and epidemiological information in making a final diagnosis. For testing of asymptomatic individuals, assay performance characteristics and clinical utility have not been evaluated. Testing for SARS-CoV-2 (Severe acute respiratory syndrome coronavirus 2, formerly known as 2019 novel coronavirus or 2019-nCoV) to aid in the diagnosis of COVID-19 is performed using the [employer] m SARS-CoV-2 Assay as authorized by the FDA Emergency Use Authorization (EUA). This EUA assay is intended for In-vitro Diagnostic (IVD) use with respiratory specimens such as nasopharyngeal swabs collected from individuals during the acute phase of infection. This assay is performed based on the instructions for use provided by [employer] and additional guidance provided by CDC and FDA. Testing is performed in the [facility] Laboratory within the Department of Pathology and Laboratory Medicine at [facility], certified under the Clinical Laboratory Improvement Amendments of 1988 (CLIA), 42 U.S.C. 263a, to perform high complexity tests. Assay performance has been verified according to clinical laboratory regulatory requirements for use with specimens collected from individuals suspected of COVID-19. Test results are provided above. A result of Not Detected indicates that the viral RNA target is not present above the limit of detection, but does not preclude SARS-CoV-2 infection. False negative results may occur if a specimen is improperly collected, transported or handled; if amplification inhibitors are present; or if inadequate numbers of viral particles are present in the specimen. When a diagnostic test is negative, the possibility of a false negative result should be considered in the context of a patient's recent exposures and the presence of clinical signs and symptoms consistent with COVID-19. A result of Detected indicates that RNA from SARS-CoV-2 was detected and the patient is infected. As required or requested by public health authorities, positive specimens may be sent for additional testing. Positive and negative predictive values for this test are highly dependent on disease prevalence. A result of Invalid indicates that neither the viral RNA targets nor the internal control target was detected. An invalid result suggests the presence of inhibitors. Recollection and re-testing is recommended in the case of an invalid result. CDC COVID-19 criteria for testing on human specimens and clinical management guidance information are available at the CDC Coronavirus Disease 2019 (COVID-19) webpage under Information for Healthcare Professionals (https://www.cdc.gov/coronavirus/2019-ncov/hcp/index.html) Additional information about this and other EUA tests can be found in provider and patient fact sheets at the following FDA website: https://www.fda.gov/medical-devices/kebihfmbkfr-lezrjls-6666-uslur-96-vojbklsjz- use-a ekaeitzazxmcy-fmjjsak-ppwcxtj/ehrpz-gwebzabrfsz-pyxl SARS-CoV-2 RNA Source CUST[employer]ER [employer]YAL[employer] REPRESENTATIVE Swab [facility] Nasopharyngeal Swab 02/25/20 4:54 PM EDT 02/24/2022 9:01 PM EDT Comment:Symptoms->Asymptomat ic Narrative Resulting Agency Comment Spec In Lab Pablito Hunt MD MOLECULAR ORDERABLES Performing Organization Address [facility] Co de Phone Number [facility] [place] [address] * EKG 12 Lead (02/24/2022 3:39 PM EDT) Ventricular rate 69 BPM MUSE SYSTEM Atrial Rate 69 BPM MUSE SYSTEM P-R Interval 152 ms MUSE SYSTEM QRS Duration 96 ms MUSE SYSTEM Q-T Interval 386 ms MUSE SYSTEM QTC Calculated (Bezet) 413 ms MUSE SYSTEM Calculated P [place] 18 degrees MUSE SYSTEM Calculated R [place] -10 degrees MUSE SYSTEM Calculated T [place] 43 degrees MUSE SYSTEM INTERPRETATION Normal sinus rhythm 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) Possible Anterior infarct (cited on or before 29-JAN-2022) Abnormal ECG When compared with ECG of 29-JAN-2022 12:52, Premature ventricular complexes are no longer Present Confirmed by MD James, Pablito ([id number]) on 02/25/2022 8:11:22 AM MUSE SYSTEM 02/24/2022 3:39 PM EDT 02/25/2022 8:11 AM EDT Pablito Hunt MD ECG ORDERABLES Performing Organization Address [facility] Co de Phone Number MUSE SYSTEM * CARDIAC CATHETERIZATION (02/24/2022 3:08 PM EDT) Anatomical Region Laterality Modality Other Narrative 02/24/2022 6:14 PM EDT ?[facility] ? Cardiac Catheterization/Intervention Report ? Patient Name: Conrad Vera. ? Procedure Date: 02/24/2022 ? A #: [id number] ? Primary Physician: Pablito Hunt ? Case #: [id number] ? File Name: [id number] ? Catheterization Order Number: [id number] ? [facility] ? Final Report [place], [place] ? Patient Name: ? Conrad WillisBrandon Vera ? ID#: ?[id number] ? : ?1955 ? Procedure Date: ? February 24, 2022 ? Case #: ? [id number] ? Room: ? 6 ? Case Physician: ? Pablito Hunt M.D. ? Start: ?12:40 ?Fellow: ? Chetan Hutchison M.D. ?Admission: ??02/24/2022 ? Procedures: ?* Coronary Angiography ?* Left Heart Catheterization ?* Bypass Graft Study ?* Coronary Ultrasound ?* Coronary Stent Insertion ?* Vascular Closure Device Deployment ?* Access Site Angiography ? History ?Conrad Vera is a 66 year old man. He has hypertension and a family ?history of coronary artery disease. The patient's smoking status is ?Never. He has hypercholesterolemia managed with lipid therapy. The ?patient has diabetes managed with oral medication. He has a prior history ?of coronary artery disease. The patient had coronary artery bypass ?surgery. Prior to the initiation of this procedure, the patient was ?designated as ASA Class III. The [facility] clinical frailty scale is 5: Mildly ?Frail. ? Diagnostic Tests: ?Prior Coronary Angiography: ? Prior coronary angiography was performed on 11/28/2009 and showed ? obstructive CAD. LV ejection fraction within 6 months is 57%. ?Electrocardiography: ? EKG was assessed by ECG. EKG was Abnormal. EKG showed other ? abnormality. ?Medications Prior to Procedure: ? Aspirin, Angiotensin II Receptor Enzo, Calcium Channel Blocking ? Agent, Long Acting Nitrate and Statin. ? Indications for Diagnostic Cath: ?The priority of the diagnostic procedure was Elective. The indication for ?the catheterization laboratory technician visit is worsening angina. Chest pain symptom assessment ?was: Atypical Angina. ? Technique: ?A 6Fr sheath was inserted in the right femoral artery utilizing the ?Seldinger technique. The right coronary artery was injected utilizing a ?6Fr JR 4 catheter. A 5Fr PAWAN catheter was used to inject the mammary ?artery. The left coronary artery was injected utilizing a 6Fr JL 4 ?catheter. A 6Fr MULTIPURPOSE B-2 catheter was used to inject the bypass ?graft. Coronary stent insertion was performed and the equipment utilized ?will be described in the intervention summary section. 11,000 units of ?heparin were administered. A total of 300cc of Omnipaque were opened, ?298cc of Omnipaque were administered and 2cc of Omnipaque were wasted. ?Radiation: Fluoro time was 42.3 minutes, dose area product was 132,000 ?mGYcm2 and air kerma was 2,186 mGY. See the case log for additional ?details. ?The patient received the following medications prior to and during the ?procedure: ? Unfractionated Heparin and Clopidogrel. ? Hemodynamics: ?Left Heart Pressures ? Resting: ? Syst Diast ? EDP ?a ?v ? m ?Ao 144 ?? 76 ?104 ?LV 138 ? 10 ? Coronary Angiography: ?Dominance: Right ?Left Main ? There was a 70% stenosis of the distal segment of the left main ? artery. ?Left Anterior Descending ? There was a 70% diffuse stenosis of the ostial segment of the left ? anterior descending artery (LAD). ??Distal flow was via a bypass ? graft. ? There was a 75% diffuse stenosis of the proximal segment of the ? first diagonal branch (Diagonal 1) of the LAD. ?Left Circumflex ? There was an 80% stenosis of the ostial segment of the left ? circumflex artery (LCX). ?Right Coronary Artery ? There was a 75% stenosis of the mid segment of the right coronary ? artery (RCA). ??The distal segment of the RCA had 65% stenosis. ? There was a 75% stenosis of the ostial segment of the right ? posterior descending branch (RPDA) of the RCA. ??The mid 1 segment of ? the RPDA had 75% stenosis. ? Bypass Grafts: ?There was a total of three bypass grafts evaluated during this procedure. ?1. ?? Left internal mammary artery graft to the LAD ? There was a left internal mammary artery graft with a single ? anastomosis to the left anterior descending artery (LAD). ? There was no evidence of obstruction in this graft. Distal flow was ? normal. ?2. ?? Saphenous vein graft to the RCA ? There was a saphenous vein graft with a single anastomosis to the ? right coronary artery (RCA). ? There was a severe diffuse (>=75% stenosis) disease of the entire ? graft. Distal flow was decreased. ?3. ?? Saphenous vein graft to the OM1 ? There was a saphenous vein graft with a single anastomosis to the ? first obtuse marginal branch (OM1) of the LCX. ? There was a single discrete total occlusion of the ostial portion of ? the segment of this graft between the origin of this graft and the ? OM1. ? Intravascular Imaging/Physiology: ?Intravascular Ultrasound was performed in the distal LM using a 6 Fr EBU ?3.5 guiding catheter and a 3.5 Fr [employer] [place] ST ??20 Mhz using ?auto 1 mm/sec pullback. ??Imaging was successful. ??Image quality was good. ? The distal LM showed severe diffuse atherosclerotic plaque. ?Post Intervention: The stent was well expanded and apposed. ?Intravascular Ultrasound was performed in the ostial RPDA using a 6 Fr AL ?1 guiding catheter and a 3.5 Fr [employer] [place] 20 Mhz using Manual ?pullback. ??Imaging was successful. ??Image quality was good. ??The ostial ?RPDA showed severe diffuse atherosclerotic plaque. ?Post Intervention: The stent was well expanded and apposed. ? Indication for Intervention: ?Coronary intervention was indicated for treatment of stable angina. The ?priority for the procedure was Elective. The NCDR indication for the ?procedure was Stable angina. Syntax Score was Low. Initial PCI was ?performed for multivessel disease. ? Intervention Summary: ?Left Main Artery ? Distal 70% ? Stent insertion was performed on the 70% stenosis in the ? distal segment of the left main. This was a de negar lesion. ? According to the ACC/AHA classification system, this lesion ? was a type B2 high risk lesion. Primary prevention of ? restenosis was the indication for stent insertion. This was ? the culprit lesion. A guidewire was placed across this lesion. ? Vessel flow pre intervention was RONN 3. Lesion length was ? 16mm. This lesion was contiguous with LCX-ostial. The lesion ? involves a bifurcation with the LAD. This bifurcation lesion ? was treated with a single stent, side branch jailed and not ? treated technique. ? Stent insertion was accomplished through a 6 Fr. EBU 3.5 ? guide. ??The lesion was predilated with a 3.00mm NC EUPHORA 20 ? MM balloon with a maximum inflation pressure of 14 ? atmospheres. ??A premounted 4.00 x 20 mm Synergy XD (AARON) was ? deployed with a maximum inflation pressure of 14 atmospheres. ? Following stent deployment, the lesion was dilated using a ? 4.50mm NC EMERGE 06 MM balloon with a maximum inflation ? pressure of 14 atmospheres. ? The final outcome was defined as successful. There was no ? residual stenosis following this intervention. The final RONN ? flow was 3. ?Right Coronary Artery ? Mid 75% ? Stent insertion was performed on the 75% stenosis in the mid ? segment of the RCA. This was a de negar lesion. This lesion was ? designated a type B2 high risk lesion based on ACC/AHA ? classification system. Primary prevention of restenosis was ? the indication for stent insertion. This was the culprit ? lesion. A guidewire was placed across this lesion. Vessel flow ? pre intervention was RONN 3. Lesion length was 16mm. ? Stent insertion was accomplished through a 6 Fr. AL 1 guide. ? The lesion was predilated with a 2.50mm NC EUPHORA 12 MM ? balloon with a maximum inflation pressure of 12 atmospheres. ? A premounted 4.00 x 20 mm Synergy XD (AARON) was deployed with a ? maximum inflation pressure of 12 atmospheres. ? The final outcome was defined as successful. There was no ? residual stenosis following this intervention. The final RONN ? flow was 3. ? Distal 65% ? Stent insertion was performed on the 65% stenosis in the ? distal segment of the RCA. This was a de negar lesion. ? According to the ACC/AHA classification system, this lesion ? was a type B2 high risk lesion. Primary prevention of ? restenosis was the indication for stent insertion. This was ? the culprit lesion. A guidewire was placed across this lesion. ? Vessel flow pre intervention was RONN 3. Lesion length was ? 18mm. ? Stent insertion was accomplished through a 6 Fr. AL 1 guide. ? A premounted 3.50 x 16 mm Synergy XD (AARON) was deployed with a ? maximum inflation pressure of 14 atmospheres. ? The final outcome was defined as successful. There was no ? residual stenosis following this intervention. The final RONN ? flow was 3. ?Right Posterior Descending Branch of the RCA ? Ostial 75% ? Stent insertion was performed on the 75% stenosis in the ? ostial segment of the RPDA. This was a de negar lesion. This ? lesion was designated a type C high risk lesion based on ? ACC/AHA classification system. Primary prevention of ? restenosis was the indication for stent insertion. This was ? the culprit lesion. Vessel flow pre intervention was RONN 3. ? Lesion length was 18mm. ? Stent insertion was accomplished through a 6 Fr. AL 1 guide. ? The lesion was predilated with a 2.50mm NC EUPHORA 12 MM ? balloon with a maximum inflation pressure of 12 atmospheres. ? A premounted 2.25 x 28 mm Synergy XD (AARON) was deployed with a ? maximum inflation pressure of 14 atmospheres. ??Following stent ? deployment, the lesion was dilated using a 3.50mm NC EMERGE 12 ? MM balloon with a maximum inflation pressure of 14 ? atmospheres. ? The final outcome was defined as successful. There was no ? residual stenosis following this intervention. The final RONN ? flow was 3. ? Mid 1 75% ? Stent insertion was performed on the 75% stenosis in the mid 1 ? segment of the RPDA. This was a de negar lesion. According to ? the ACC/AHA classification system, this lesion was a type B2 ? moderate risk lesion. Primary prevention of restenosis was the ? indication for stent insertion. This was the culprit lesion. A ? guidewire was placed across this lesion. Vessel flow pre ? intervention was RONN 3. Lesion length was 14mm. ? Stent insertion was accomplished through a 6 Fr. AL 1 guide. ? A premounted 2.00 x 12 mm Resolute ARIK (AARON) was deployed ? with a maximum inflation pressure of 14 atmospheres. ? The final outcome was defined as successful. There was no ? residual stenosis following this intervention. The final RONN ? flow was 3. ? Vascular Access: ?Vascular Access Angiogram: ? A selective angiogram at the right femoral artery revealed no ? significant obstructive disease. ?Vascular Ultrasound: ? Ultrasound of the right femoral artery was used to guide access and ? showed vessel patent with no disease. Needle entry was observed. ?Vascular Access Management: ? A 6 Fr Perclose was deployed at the right femoral artery access ? site. This device was successful. ? Dual Antiplatelet (DAPT) Recommendations: ?Drug eluting stent (AARON) inserted for stable ischemic heart disease ?(SIHD). ?P2Y12 Loading dose Clopidogrel 600 mg PO given in lab. ?Recommended anti-platelet/anti-thrombotic regimen: ?Start aspirin 81 mg daily now and continue for indefinitely. ?Start clopidogrel 75 mg daily now and continue for 6 months then stop. ?These recommendations are made at the time of the intervention. Patient ?and provider preferences or a changing clinical situation may require ?modification of this regimen. Consult [facility] [place] Interventional Cardiology for ?questions. ?The 1 year bleeding risk as calculated by the PRECISE DAPT score is Low ?risk. ? Conclusions: ?* Significant stenosis of the left [...] ?* See Dual Antiplatelet (DAPT) Recommendations above ? Complications/Events: ?The patient had no complications during these procedures. ?The attending physician was present for the entire procedure. ?Dr. Pablito Hunt M.D. was present during the moderate sedation ?intraservice time as documented by the sedation nurse. ??Case time = 02:15. ?Dr. Pablito Hunt M.D. performed the coronary angiography, left heart ?catheterization, bypass graft study, IVUS # coronary, stent ?insertion-coronary, access site angiography and vascular closure device. ? Pablito Hunt M.D. ? Electronically Signed by: Pablito Hunt M.D. ? Report Finalized: 02/24/2022 ??18:09 ? Pablito Hunt MD CARDIAC CATH ORDERAB LES * POCT Glucose (02/24/2022 2:58 PM EDT) Glucose, POC 178 65 - 199 mg/dL [facility] Comment: Supplemental ranges: <140 mg/dL before meals <180 mg/dL all other times of the day Blood 02/24/2022 2:58 PM EDT 02/24/2022 2:58 PM EDT Pablito Hunt MD POINT OF CARE TEST O RDERABLES Performing Organization Address [facility] de Phone Number [facility] [place] [address] * (ABNORMAL) POCT Glucose (02/24/2022 12:01 PM EDT) Glucose, POC 213(H) 65 - 199 mg/dL [facility] Comment: Supplemental ranges: <140 mg/dL before meals <180 mg/dL all other times of the day Blood 02/24/2022 12:0 1 PM EDT 02/24/2022 12:01 PM EDT Pablito Hunt MD POINT OF CARE TEST O RDERABLES Performing Organization Address [facility] de Phone Number [facility] [place] [address] documented in this encounter Visit Diagnoses Diagnosis Coronary artery disease due to lipid rich plaque Encounter for preprocedure screening laboratory testing for COVID-19 CAD (coronary artery disease) Coronary atherosclerosis of unspecified type of vessel, cachil dehe or graft Coronary artery disease due to lipid rich plaque documented in this encounter Admitting Diagnoses Diagnosis CAD (coronary artery disease) Coronary atherosclerosis of unspecified type of vessel, cachil dehe or graft documented in this encounter Administered Medications Inactive Administered Medications - up to 3 most recent administrations Medication Order MAR Action Action Date Dose Rate Site acetaminophen (Tylenol) tablet 650 mg 650 mg, Oral, EVERY 6 HOURS PRN, Starting on Wed02/25/22 at 0209, Until Wed02/25/22 at 1216, Headaches Given 02/25/2022 2:20 AM EDT 650 mg alum-mag hydroxide-simeth (Maalox) (40 mg-40 mg-4 mg/mL) oral liquid ONCE PRN, Starting on Wed02/24/22 at 1334, Until Wed02/24/22 at 1509, Intra-Operative (Intra-Procedure), Routine Given 02/24/2022 1:34 PM EDT 30 mLs amLODIPine (Norvasc) tablet 5 mg 5 mg, Oral, DAILY, First dose on Wed02/25/22 at 0900, Until Discontinued, Routine Given 02/25/2022 8:48 AM EDT 5 mg aspirin EC tablet 81 mg 81 mg, Oral, DAILY, First dose on Wed02/25/22 at 0900, Until Discontinued, Routine Given 02/25/2022 8:48 AM EDT 81 mg calcium carbonate (Tums) chewable tablet 500 mg 500 mg, Oral, EVERY 6 HOURS PRN, Starting on Wed02/25/22 at 0210, Until Wed02/25/22 at 1216, Heartburn, Routine Given 02/25/2022 2:20 AM EDT 500 mg clopidogreL (Plavix) tablet 75 mg 75 mg, Oral, DAILY, First dose on Wed02/25/22 at 0900, Until Discontinued, Recovery (Recovery-Hospital Unit), Routine Given 02/25/2022 8:48 AM EDT 75 mg clopidogreL (Plavix) tablet ONCE PRN, Starting on Wed02/24/22 at 1315, Until Wed02/24/22 at 1509, Intra-Operative (Intra-Procedure), Routine Given 02/24/2022 1:15 PM EDT 600 mg dextrose 10% infusion 250 mL, at 1,000 mL/hr, Intravenous, EVERY 30 MIN PRN, Starting on Wed02/24/22 at 1528, Until Wed02/25/22 at 1216, For BG 50-70 mg/dL: Oral treatment preferred: If able to drink, give 120 mL Juice or Regular (not diet) soda OR If NPO, give 15 gram glucose 40% oral gel massaged into buccal mucosa OR if unconscious or uncooperative, give 25 gram (250 mL) Dextrose 10% IV over 15 minutes per protocol OR, if no IV access, 1 mg Glucagon IM. For BG less than 50 mg/dL: Oral treatment preferred: If able to drink, give 240 mL Juice or Regular (not diet) soda OR If NPO, give 30 gram glucose 40% oral gel massaged in buccal mucosa OR if unconscious or uncooperative, give 25 gram (250 mL) Dextrose 10% IV over 15 minutes per protocol OR, if no IV access, 1 mg Glucagon IM. Recheck BG in 30 minutes. May repeat juice/soda, gel, dextrose or glucagon once per episode. For persistent hypoglycemia, consider longer-acting treatment for the duration of the active insulin. fentaNYL (pf) (50 mcg/mL) multi-dose injection ONCE PRN, Starting on Wed02/24/22 at 1238, Until Wed02/24/22 at 1509, Intra-Operative (Intra-Procedure), Routine Given 02/24/2022 2:56 PM EDT 25 mcg Given 02/24/2022 12:38 PM EDT 25 mcg glucagon (Glucagen) (1 mg/mL) injection solution 1 mg 1 mg, Intramuscular, EVERY 30 MIN PRN, Starting on Wed02/24/22 at 1528, Until Wed02/25/22 at 1216, Low blood sugar, For BG 50-70 mg/dL: Oral treatment preferred: If able to drink, give 120 mL Juice or Regular (not diet) soda OR If NPO, give 15 gram glucose 40% oral gel massaged into buccal mucosa OR if unconscious or uncooperative, give 25 gram (250 mL) Dextrose 10% IV over 15 minutes per protocol OR, if no IV access, 1 mg Glucagon IM. For BG less than 50 mg/dL: Oral treatment preferred: If able to drink, give 240 mL Juice or Regular (not diet) soda OR If NPO, give 30 gram glucose 40% oral gel massaged in buccal mucosa OR if unconscious or uncooperative, give 25 gram (250 mL) Dextrose 10% IV over 15 minutes per protocol OR, if no IV access, 1 mg Glucagon IM. Recheck BG in 30 minutes. May repeat juice/soda, gel, dextrose or glucagon once per episode. For persistent hypoglycemia, consider longer-acting treatment for the duration of the active insulin., Routine glucose (Glutose) 40% oral geL 15-30 g of glucose, Buccal, EVERY 30 MIN PRN, Starting on Wed02/24/22 at 1528, Until Wed02/25/22 at 1216, Low blood sugar, For BG 50-70 mg/dL: Oral treatment preferred: If able to drink, give 120 mL Juice or Regular (not diet) soda OR If NPO, give 15 gram glucose 40% oral gel massaged into buccal mucosa OR if unconscious or uncooperative, give 25 gram (250 mL) Dextrose 10% IV over 15 minutes per protocol OR, if no IV access, 1 mg Glucagon IM. For BG less than 50 mg/dL: Oral treatment preferred: If able to drink, give 240 mL Juice or Regular (not diet) soda OR If NPO, give 30 gram glucose 40% oral gel massaged in buccal mucosa OR if unconscious or uncooperative, give 25 gram (250 mL) Dextrose 10% IV over 15 minutes per protocol OR, if no IV access, 1 mg Glucagon IM. Recheck BG in 30 minutes. May repeat juice/soda, gel, dextrose or glucagon once per episode. For persistent hypoglycemia, consider longer-acting treatment for the duration of the active insulin. 1 tube of Glutose-15 contains 15 grams of glucose (net weight of tube = 37.5 grams.), Routine heparin (porcine) (1,000 units/mL) injection ONCE PRN, Starting on Wed02/24/22 at 1250, Until Wed02/24/22 at 1509, Cath (Intra-Procedure), Routine Given 02/24/2022 1:44 PM EDT 2,000 Units Given 02/24/2022 1:25 PM EDT 2,000 Units Given 02/24/2022 1:25 PM EDT 2,000 Units insulin lispro (HumaLOG;Admelog) (100 unit/mL) subcutaneous injection vial 1-4 Units 1-4 Units, Subcutaneous, 4 TIMES DAILY BEFORE MEALS & NIGHTLY, First dose (after last modification) on Wed02/24/22 at 2145, Until Discontinued, CORRECTION BOLUS [1-4 Units] Sensitive Sliding Scale (BG in mg/dL): Correction factor 40 (1 unit of insulin is expected to drop the glucose 40 mg/dL) BG 160 - 200 Give 1 unit BG 201 - 240 Give 2 units BG 241 - 280 Give 3 units BG greater than 280, give 4 units and recheck BG in 2 hours. - If recheck BG is LESS than 280, give no insulin and resume schedule - If recheck BG is GREATER than 280, give 4 units and repeat BG in 2 hours (no more than 3 times) & call for new insulin orders. DO NOT hold if NPO, unless specifically directed to do so by written order. Per Blood Glucose Monitoring Policy, re-check a BG of > 240 mg/dL in 2 hours., Routine Given 02/25/2022 8:50 AM EDT 2 Uni ts Given 02/24/2022 9:53 PM EDT 4 Units iohexoL (Omnipaque) (350 mg/mL) solution ONCE PRN, Starting on Wed02/24/22 at 1508, Until Wed02/24/22 at 1509, Cath (Intra-Procedure), Routine Given 02/24/2022 3:08 PM EDT 298 mLs isosorbide mononitrate CR (Imdur) tablet 30 mg 30 mg, Oral, DAILY, First dose on Wed02/25/22 at 0600, Until Discontinued, DO NOT CRUSH OR OPEN, Routine Given 02/25/2022 6:41 AM EDT 30 mg losartan (Cozaar) tablet 50 mg 50 mg, Oral, DAILY, First dose on Wed02/25/22 at 0900, Until Discontinued, Routine Given 02/25/2022 8:48 AM EDT 50 mg midazolam (pf) (Versed) (1 mg/mL) multi-dose injection ONCE PRN, Starting on Wed02/24/22 at 1238, Until Wed02/24/22 at 1509, Cath (Intra-Procedure), Routine Given 02/24/2022 12:38 PM EDT 1 mg sodium chloride 0.9% infusion 150 mL/hr, Intravenous, CONTINUOUS, Starting on Wed02/24/22 at 1545, Until Wed02/24/22 at 1744, Recovery (Recovery-Hospital Unit) Continued Bag 02/24/2022 3:35 PM EDT 150 mL/hr 150 mL/hr documented in this encounter Active and Recently Administered Medications Times are shown in EDT. Scheduled Medication Order 02/23/2022 02/24/2022 02/25/2022 amLODIPine (Norvasc) tablet 5 mg 5 mg, Oral, DAILY, First dose on Wed02/25/22 at 0900, Until Discontinued, Routine 0848 (Given - Provid er: Ester Zarate RN) aspirin EC tablet 81 mg 81 mg, Oral, DAILY, First dose on Wed02/25/22 at 0900, Until Discontinued, Routine 0848 (Given - Provid er: Ester Zarate RN) atorvastatin (Lipitor) tablet 10 mg 10 mg, Oral, EVERY EVENING, First dose on Wed02/24/22 at 1700, Until Discontinued, Routine 1700 (Not Given - Provider: Jacquelyn Damon RN - Reason: Patient/family refused - Comment: pt states I took this morning.) clopidogreL (Plavix) tablet 75 mg 75 mg, Oral, DAILY, First dose on Wed02/25/22 at 0900, Until Discontinued, Recovery (Recovery-Hospital Unit), Routine 0848 (Given - Provid er: Ester Zarate RN) insulin lispro (HumaLOG;Admelog) (100 unit/mL) subcutaneous injection vial 1-4 Units(Linked Group 1) 1-4 Units, Subcutaneous, 4 TIMES DAILY BEFORE MEALS & NIGHTLY, First dose (after last modification) on Wed02/24/22 at 2145, Until Discontinued, CORRECTION BOLUS [1-4 Units] Sensitive Sliding Scale (BG in mg/dL): Correction factor 40 (1 unit of insulin is expected to drop the glucose 40 mg/dL) BG 160 - 200 Give 1 unit BG 201 - 240 Give 2 units BG 241 - 280 Give 3 units BG greater than 280, give 4 units and recheck BG in 2 hours. - If recheck BG is LESS than 280, give no insulin and resume schedule - If recheck BG is GREATER than 280, give 4 units and repeat BG in 2 hours (no more than 3 times) & call for new insulin orders. DO NOT hold if NPO, unless specifically directed to do so by written order. Per Blood Glucose Monitoring Policy, re-check a BG of > 240 mg/dL in 2 hours., Routine 2153 (Given - Provider: Margareth Owen RN) 0850 (Given - Provider: Ester Zarate, ROSENDO) isosorbide mononitrate CR (Imdur) tablet 30 mg 30 mg, Oral, DAILY, First dose on Wed02/25/22 at 0600, Until Discontinued, DO NOT CRUSH OR OPEN, Routine 0641 (Given - Provid er: Margareth Owen RN) losartan (Cozaar) tablet 50 mg 50 mg, Oral, DAILY, First dose on Wed02/25/22 at 0900, Until Discontinued, Routine 0848 (Given - Provid er: Ester Zarate RN) Continuous Medication Order 02/23/2022 02/24/2022 02/25/2022 sodium chloride 0.9% infusion () 150 mL/hr, Intravenous, CONTINUOUS, Starting on Wed02/24/22 at 1545, Until Wed02/24/22 at 1744, Recovery (Recovery-Hospital Unit) 1535 (Continued Bag - Provid er: Helen Puri RN)1700 (Stopped - Provider: Jacquelyn Damon RN) PRN Medication Order 02/23/2022 02/24/2022 02/25/2022 acetaminophen (Tylenol) tablet 650 mg 650 mg, Oral, EVERY 6 HOURS PRN, Starting on Wed02/25/22 at 0209, Until Wed02/25/22 at 1216, Headaches 0220 (Given - Provid er: Margareth Owen RN) alum-mag hydroxide-simeth (Maalox) (40 mg-40 mg-4 mg/mL) oral liquid (CANCELED) ONCE PRN, Starting on Wed02/24/22 at 1334, Until Wed02/24/22 at 1509, Intra-Operative (Intra-Procedure), Routine 1334 (Given - Provider: Boo Lopez) calcium carbonate (Tums) chewable tablet 500 mg 500 mg, Oral, EVERY 6 HOURS PRN, Starting on Wed02/25/22 at 0210, Until Wed02/25/22 at 1216, Heartburn, Routine 0220 (Given - Provid er: Margareth Owen RN) clopidogreL (Plavix) tablet (CANCELED) ONCE PRN, Starting on Wed02/24/22 at 1315, Until Wed02/24/22 at 1509, Intra-Operative (Intra-Procedure), Routine 1315 (Given - Provider: Boo Lopez) dextrose 10% infusion(Linked Group 2) 250 mL, at 1,000 mL/hr, Intravenous, EVERY 30 MIN PRN, Starting on Wed02/24/22 at 1528, Until Wed02/25/22 at 1216, For BG 50-70 mg/dL: Oral treatment preferred: If able to drink, give 120 mL Juice or Regular (not diet) soda OR If NPO, give 15 gram glucose 40% oral gel massaged into buccal mucosa OR if unconscious or uncooperative, give 25 gram (250 mL) Dextrose 10% IV over 15 minutes per protocol OR, if no IV access, 1 mg Glucagon IM. For BG less than 50 mg/dL: Oral treatment preferred: If able to drink, give 240 mL Juice or Regular (not diet) soda OR If NPO, give 30 gram glucose 40% oral gel massaged in buccal mucosa OR if unconscious or uncooperative, give 25 gram (250 mL) Dextrose 10% IV over 15 minutes per protocol OR, if no IV access, 1 mg Glucagon IM. Recheck BG in 30 minutes. May repeat juice/soda, gel, dextrose or glucagon once per episode. For persistent hypoglycemia, consider longer-acting treatment for the duration of the active insulin. fentaNYL (pf) (50 mcg/mL) multi-dose injection (CANCELED) ONCE PRN, Starting on Wed02/24/22 at 1238, Until Wed02/24/22 at 1509, Intra-Operative (Intra-Procedure), Routine 1238 (Given - Provider: Caden Lundberg RN)1456 (Given - Provider: Trinidad Garcia RN) glucagon (Glucagen) (1 mg/mL) injection solution 1 mg(Linked Group 2) 1 mg, Intramuscular, EVERY 30 MIN PRN, Starting on Wed02/24/22 at 1528, Until Wed02/25/22 at 1216, Low blood sugar, For BG 50-70 mg/dL: Oral treatment preferred: If able to drink, give 120 mL Juice or Regular (not diet) soda OR If NPO, give 15 gram glucose 40% oral gel massaged into buccal mucosa OR if unconscious or uncooperative, give 25 gram (250 mL) Dextrose 10% IV over 15 minutes per protocol OR, if no IV access, 1 mg Glucagon IM. For BG less than 50 mg/dL: Oral treatment preferred: If able to drink, give 240 mL Juice or Regular (not diet) soda OR If NPO, give 30 gram glucose 40% oral gel massaged in buccal mucosa OR if unconscious or uncooperative, give 25 gram (250 mL) Dextrose 10% IV over 15 minutes per protocol OR, if no IV access, 1 mg Glucagon IM. Recheck BG in 30 minutes. May repeat juice/soda, gel, dextrose or glucagon once per episode. For persistent hypoglycemia, consider longer-acting treatment for the duration of the active insulin., Routine glucose (Glutose) 40% oral geL(Linked Group 2) 15-30 g of glucose, Buccal, EVERY 30 MIN PRN, Starting on Wed02/24/22 at 1528, Until Wed02/25/22 at 1216, Low blood sugar, For BG 50-70 mg/dL: Oral treatment preferred: If able to drink, give 120 mL Juice or Regular (not diet) soda OR If NPO, give 15 gram glucose 40% oral gel massaged into buccal mucosa OR if unconscious or uncooperative, give 25 gram (250 mL) Dextrose 10% IV over 15 minutes per protocol OR, if no IV access, 1 mg Glucagon IM. For BG less than 50 mg/dL: Oral treatment preferred: If able to drink, give 240 mL Juice or Regular (not diet) soda OR If NPO, give 30 gram glucose 40% oral gel massaged in buccal mucosa OR if unconscious or uncooperative, give 25 gram (250 mL) Dextrose 10% IV over 15 minutes per protocol OR, if no IV access, 1 mg Glucagon IM. Recheck BG in 30 minutes. May repeat juice/soda, gel, dextrose or glucagon once per episode. For persistent hypoglycemia, consider longer-acting treatment for the duration of the active insulin. 1 tube of Glutose-15 contains 15 grams of glucose (net weight of tube = 37.5 grams.), Routine heparin (porcine) (1,000 units/mL) injection (CANCELED) ONCE PRN, Starting on Wed02/24/22 at 1250, Until Wed02/24/22 at 1509, Cath (Intra-Procedure), Routine 1250 (Given - Provider: Caden Lundberg, ROSENDO)1315 (Given - Provider: Caden Lundberg, ROSENDO)1325 (Given - Provider: Rissa Stevenson RN)1325 (Given - Provider: Boo Lopez)1344 (Given - Provider: Boo Lopez) iohexoL (Omnipaque) (350 mg/mL) solution (CANCELED) ONCE PRN, Starting on Wed02/24/22 at 1508, Until Wed02/24/22 at 1509, Cath (Intra-Procedure), Routine 1508 (Given - Provider: Pablito Hunt MD) midazolam (pf) (Versed) (1 mg/mL) multi-dose injection (CANCELED) ONCE PRN, Starting on Wed02/24/22 at 1238, Until Wed02/24/22 at 1509, Cath (Intra-Procedure), Routine 1238 (Given - Provider: Caden Lundberg, ROSENDO) Linked Groups Order Group 1: POCT Fingerstick Glucose (CANCELED) Routine, 4 TIMES DAILY BEFORE MEALS & AT BEDTIME, First occurrence on Wed02/24/22 at 2200, Until Specified, Consider choosing FOUR TIMES A DAY BEFORE MEALS AND AT BEDTIME as frequency for: Patients who have good hypoglycemia awareness: -Patients who are eating meals during the day and sleeping at night -Patient who are otherwise stable And insulin lispro (HumaLOG;Admelog) (100 unit/mL) subcutaneous injection vial 1-4 UnitsJump to med 1-4 Units, Subcutaneous, 4 TIMES DAILY BEFORE MEALS & NIGHTLY, First dose (after last modification) on Wed02/24/22 at 2145, Until Discontinued, CORRECTION BOLUS [1-4 Units] Sensitive Sliding Scale (BG in mg/dL): Correction factor 40 (1 unit of insulin is expected to drop the glucose 40 mg/dL) BG 160 - 200 Give 1 unit BG 201 - 240 Give 2 units BG 241 - 280 Give 3 units BG greater than 280, give 4 units and recheck BG in 2 hours. - If recheck BG is LESS than 280, give no insulin and resume schedule - If recheck BG is GREATER than 280, give 4 units and repeat BG in 2 hours (no more than 3 times) & call for new insulin orders. DO NOT hold if NPO, unless specifically directed to do so by written order. Per Blood Glucose Monitoring Policy, re- check a BG of > 240 mg/dL in 2 hours., Routine Group 2: glucose (Glutose) 40% oral geLJump to med 15-30 g of glucose, Buccal, EVERY 30 MIN PRN, Starting on Wed02/24/22 at 1528, Until Wed02/25/22 at 1216, Low blood sugar, For BG 50-70 mg/dL: Oral treatment preferred: If able to drink, give 120 mL Juice or Regular (not diet) soda OR If NPO, give 15 gram glucose 40% oral gel massaged into buccal mucosa OR if unconscious or uncooperative, give 25 gram (250 mL) Dextrose 10% IV over 15 minutes per protocol OR, if no IV access, 1 mg Glucagon IM. For BG less than 50 mg/dL: Oral treatment preferred: If able to drink, give 240 mL Juice or Regular (not diet) soda OR If NPO, give 30 gram glucose 40% oral gel massaged in buccal mucosa OR if unconscious or uncooperative, give 25 gram (250 mL) Dextrose 10% IV over 15 minutes per protocol OR, if no IV access, 1 mg Glucagon IM. Recheck BG in 30 minutes. May repeat juice/soda, gel, dextrose or glucagon once per episode. For persistent hypoglycemia, consider longer-acting treatment for the duration of the active insulin. 1 tube of Glutose-15 contains 15 grams of glucose (net weight of tube = 37.5 grams.), Routine Or dextrose 10% infusionJump to med 250 mL, at 1,000 mL/hr, Intravenous, EVERY 30 MIN PRN, Starting on Wed02/24/22 at 1528, Until Wed02/25/22 at 1216, For BG 50-70 mg/dL: Oral treatment preferred: If able to drink, give 120 mL Juice or Regular (not diet) soda OR If NPO, give 15 gram glucose 40% oral gel massaged into buccal mucosa OR if unconscious or uncooperative, give 25 gram (250 mL) Dextrose 10% IV over 15 minutes per protocol OR, if no IV access, 1 mg Glucagon IM. For BG less than 50 mg/dL: Oral treatment preferred: If able to drink, give 240 mL Juice or Regular (not diet) soda OR If NPO, give 30 gram glucose 40% oral gel massaged in buccal mucosa OR if unconscious or uncooperative, give 25 gram (250 mL) Dextrose 10% IV over 15 minutes per protocol OR, if no IV access, 1 mg Glucagon IM. Recheck BG in 30 minutes. May repeat juice/soda, gel, dextrose or glucagon once per episode. For persistent hypoglycemia, consider longer-acting treatment for the duration of the active insulin. Or glucagon (Glucagen) (1 mg/mL) injection solution 1 mgJump to med 1 mg, Intramuscular, EVERY 30 MIN PRN, Starting on Wed02/24/22 at 1528, Until Wed02/25/22 at 1216, Low blood sugar, For BG 50-70 mg/dL: Oral treatment preferred: If able to drink, give 120 mL Juice or Regular (not diet) soda OR If NPO, give 15 gram glucose 40% oral gel massaged into buccal mucosa OR if unconscious or uncooperative, give 25 gram (250 mL) Dextrose 10% IV over 15 minutes per protocol OR, if no IV access, 1 mg Glucagon IM. For BG less than 50 mg/dL: Oral treatment preferred: If able to drink, give 240 mL Juice or Regular (not diet) soda OR If NPO, give 30 gram glucose 40% oral gel massaged in buccal mucosa OR if unconscious or uncooperative, give 25 gram (250 mL) Dextrose 10% IV over 15 minutes per protocol OR, if no IV access, 1 mg Glucagon IM. Recheck BG in 30 minutes. May repeat juice/soda, gel, dextrose or glucagon once per episode. For persistent hypoglycemia, consider longer-acting treatment for the duration of the active insulin., Routine documented in this encounter Care Teams Grade Foreman Relationship Specialty Start Date End Date Veronica Campbell APRN [address] [address] PCP - General Family Medicine 01/18/22 documented as of this encounter
--- OUTSIDE RECORDS SUMMARY | 2024-05-18 15:17 | XMS_ITS | Encounter Summary ---
Author Organization [facility] [place] [address] Care Team Providers Care Marsh Buggy Operator Name Role Phone Veronica Campbell CHRISTEL Primary Care Provider [phone] Encounter Details Date Type Department Care Team (Late st Contact Info) Description 04/10/2022 Telephone Cardiology at [address] [address] Pablito Hunt MD [facility] [place] [address] Social History Tobacco Use Types Packs/Day Years [...] encounter Miscellaneous Notes * Telephone Encounter - Pablito Hunt MD - 04/10/2022 10:49 AM EDT VM left detailing lab findings. Pablito Hunt MD documented in this encounter Plan of Treatment Upcoming Encounters Date Type Department Care Team (Late st Contact Info) Description 05/24/2024 2:00 PM EDT Office [place] [address] Bernard Linares MD [facility] [place] [address] 09/07/2024 3:00 PM EST Office Visit Dermatology at [facility] [address] [place] [address] Jeremiah Preston MD [facility] [place] [address] documented as of this encounter Visit Diagnoses Not on filedocumented in this encounter Care Teams Marsh Buggy Operator Relationship Specialty Start Date End Date Veronica Campbell APRN [address] [place] [address] PCP - General Family Medicine 01/18/22 documented as of this encounter
--- OUTSIDE RECORDS SUMMARY | 2024-05-18 15:17 | XMS_ITS | Encounter Summary ---
[place] [address] Care Team Providers Care Video News Editor Name Role Phone Veronica Campbell APRN Primary Care Provider [phone] Encounter Details Date Type Department Care Team (Late st Contact Info) Description 07/21/2022 Telephone Cardiology at [address] [phone] Conrad Jordan, RN Social History Tobacco Use Types Packs/Day [...] Miscellaneous Notes * Telephone Encounter - Conrad Jordan, RN - 07/21/2022 1:43 PM EDT Appreciate call from and Mrs. Vera (by speaker phone). Calling today asking that Dr. Hunt review and approve low dose daily Cialis for Mr. Vera. Both understand that this medication should be prescribed by his Primary Care. Looking for Dr. Hunt's review and clearance prior to connecting with PCP. This to address concerns for impotence, as well as (according to their research) possible added benefit to address his peripheral neuropathy from his spinal stenosis and to help with a weak urine stream. Question advanced to Dr. Hunt for his non urgent review and direction at his availability. Raza Jordan, technical expert Team Nurse [facility] Ambulatory Cardiology documented in this encounter Plan of Treatment Upcoming Encounters Date Type Department Care Team (Late st Contact Info) Description 05/24/2024 2:00 PM EDT Office Visit [place] [address] Bernard Linares MD [facility] [place] [address] 09/07/2024 3:00 PM EST Office Visit Dermatology at [facility] [address] [place] [address] Jeremiah Preston MD [facility] [address] Y[address] [place] [address] documented as of this encounter Visit Diagnoses Not on filedocumented in this encounter Care Teams Video News Editor Relationship Specialty Start Date End Date Veronica Campbell APRN [address] [place] [address] PCP - General Family Medicine 01/18/22 documented as of this encounter
--- OUTSIDE RECORDS SUMMARY | 2024-05-18 15:17 | XMS_ITS | Encounter Summary ---
Author Organization [facility] [place] [address] Care Team Providers Care Environmental Communications Specialist Name Role Phone Veronica Campbell CHRISTEL Primary Care Provider [phone] Encounter Details Date Type Department Care Team (Late st Contact Info) Description 04/09/2022 Telephone [place] [address] Greta Montejo Social History Tobacco Use Types Packs/Day Years [...] 2:00 PM EDT Office Visit [place] [address] Bernard Linares MD [facility] [place] [address] 09/07/2024 3:00 PM EST Office Visit Dermatology at [facility] [address] [place] [phone] Jeremiah Preston MD [facility] [address] [place] [address] documented as of this encounter Visit Diagnoses Not on filedocumented in this encounter Care Teams Environmental Communications Specialist Relationship Specialty Start Date End Date Veronica Campbell APRN [address] [place] [address] PCP - General Family Medicine 01/18/22 documented as of this encounter
--- OUTSIDE RECORDS SUMMARY | 2024-05-18 15:17 | XMS_ITS | Encounter Summary ---
Author Organization [facility] [place] [address] Care Team Providers Care Shingle Carrier Name Role Phone Veronica Campbell CHRISTEL Primary Care Provider [phone] Encounter Details Date Type Department Care Team (Late st Contact Info) Description 06/02/2023 3:20 PM EDT Office Visit Cardiology at [address] [address] Pablito Hunt MD [facility] [place] [address] Coronary artery disease, unspecified vessel or lesion type, unspecified whether angina present, unspecified whether mi'kmaq or transplanted heart Social History Tobacco Use Types Packs/Day Years [...] Sign Reading Time Taken Comments Blood Pressure 166/87 06/02/2023 3:00 PM EDT Pulse 84 06/02/2023 3:00 PM EDT Temperature - - Respiratory Rate - - Oxygen Saturation 97% 06/02/2023 3:00 PM EDT Inhaled Oxygen Concentration - - Weight 99.7 kg (219 lb 12.8 oz) 06/02/2023 3:00 PM EDT Height - - Body Mass Index 31.54 04/09/2022 12:42 PM EDT documented in this encounter Progress Notes * Pablito Hunt MD - 06/02/2023 3:20 PM EDT Images from the original note were not included. Formerly [facility] [place] [address] [address] Referring Provider: Veronica Campbell APRN [address] [place] [address] Reason for Consultation / Chief Complaint: Dyspnea on exertion Past Cardiac History and Relevant Comorbidities: Coronary disease status post CABG (FOREMAN to LAD, SVG to RCA, SVG to OM) Diabetes Hyperlipidemia Obesity Hypertension HPI: Conrad Vera is a 68 y.o. male with history of the above cardiovascular issues who presentsfor evaluation of his cardiovascular disease. It is a pleasure seeing Raza back again at this time. Unfortunately, he is complaining of anasarca. He notes bilateral lower extremity edema, face, bilateral arm and abdominal swelling. This all seemsto be occurring following his surgery back in February. He also notes wheezing and orthopnea when he lays down flat at night. He denies paroxysmal nocturnal dyspnea but his says he is now snoring. He had been on higher doses of NSAIDs, however this worsened his edema. No angina, palpitations or syncope. He notes that he is more dyspneic at this time, however denies claudication or paroxysmal nocturnal dyspnea. Work-up so far shows that his albumin is low at 3.3 with low platelets at 108, normal PTT and a lowproBNP. TTE was reportedly unremarkable up at [place]. 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 Family History: Father of [place], mother's extended family with heart failure ALLERGIES: Allergies Allergen Reactions Red Blood Cells Antibodies-Difficult to Crossmatch DO NOT REMOVE Please contact the Blood Bank at [phone] for questions. Amoxicillin-Pot Clavulanate CIS - Nausea/Vomiting, CIS - Nausea/Vomiting, CIS - Nausea/Vomiting, CIS - Nausea/Vomiting, CIS - Nausea/Vomiting Colchicine Metronidazole CIS - Rash, CIS - [...] causes GI shutdown MEDICATIONS: Current Outpatient Medications: Dexcom G6 Seismology Teacher Misc, 1 each by Mis.(Non-Drug; Combo Route) route continuous. Use as directed for continuous glucose monitoring. E11.9, Disp: 1 each, Rfl: 0 Dexcom G6 Sensor Device, 1 each by Misc.(Non-Drug; Combo Route) route continuous. Use as directed for continuous glucose monitoring. Change every 10 days. E11.9, Disp: 9 each, Rfl: 3 Dexcom G6 Transmitter Device, 1 each by Misc.(Non-Drug; Combo Route) route continuous. Use as directed for Continuous Glucose Monitoring. Change every 90 days. E11.9, Disp: 1 each, Rfl: 3 FreeStyle Elma 2 [place] Misc, 1 each by Other route daily. [...] Tablet(s), PO, Once daily, Disp: , Rfl: esomeprazole (NexIUM) [address] capsule, Take 60 mg by mouth every morning (before breakfast). One aday, Disp: , Rfl: Trulicity 1.5 mg/0.5 mL Pen Injector, , Disp: , Rfl: ROS: As per HPI, otherwise the remainder of the ROS was either non-pertinent or negative. PHYSICAL EXAM: Vitals: 06/02/23 1500 BP: 166/87 BP Location (NBP): Left arm Patient Position: Sitting Pulse: 84 SpO2: 97% Weight: 99.7 kg (219 lb 12.8 oz) Constitutional: In general, alert and oriented X [...] 01/2022: Sinus rhythm with PVCs, prior inferior [place] TTE 12/2021: Normal biventricular systolic function, EF 62%, normal valves, ascending aorta 3.7 cm Lipid Panel Lab Results Component Value Date CHLPL 100 02/25/2022 HDL 20 02/25/2022 CHOLHDL 5.0 02/25/2022 TRIG 420 02/25/2022 LDLCHOL Not Calculated 02/25/2022 LDLDIRECT 28 02/25/2022 A/P: Conrad Vera is a 68 y.o. male who presents for evaluation of the following cardiovascular issues: Edema/anasarca: We had an extensive discussion surrounding the differential diagnosis of increasingfluid retention all over. Advised that anasarca with below proBNP and unremarkable transthoracic echo tends not to be cardiogenic in nature. He notes that he is eating well, and it is unlikely that he is malnourished. He denies any changes in his bowel habits that would be consistent with a protein-losing enteropathy. Advised that he either has albuminuria or this may be an early sign of liver failure. While his platelets are low and his albumin is low, his liver function test and bilirubin areentirely normal. He will follow-up with his primary care physician who has been working this up. I a dvised that it might be reasonable for him to undergo another urinalysis to ensure that his urine albumin levels are still normal (as they were in October). Advised that a liver ultrasound or further advanced imaging and follow-up with gastroenterology might also be reasonable depending on what he discusses with his primary care provider Veronica Campbell. Coronary artery disease status post CABG and repeat revascularization: Revascularized at this time.Secondary prevention as below. Hypertension: I will defer escalating his regimen at this time as he will likely need some diuretictherapy in the near future. Hyperlipidemia: Continue Lipitor and icosapent ethyl at current doses. DM2: Management as per primary care physician Recommendations: 1: Anasarca work-up as per PCP 2: Continue current therapy 3: Follow-up in 6 months Pablito Hunt MD 06/02/2023 3:53 PM documented in this encounter Plan of Treatment Upcoming Encounters Date Type Department Care Team (Late st Contact Info) Description 05/24/2024 2:00 PM EDT Office [place] [address] Bernard Linares MD [facility] [place] [address] 09/07/2024 3:00 PM EST Office Visit Dermatology at [facility] [address] [place] [address] Jeremiah Preston MD [facility] DR [address] [address] documented as of this encounter Procedures Procedure Name Priority Date/Time Associated Diagnosis Comments EKG 12-LEAD Routine 06/02/2023 3:21 PM EDT Coronary artery disease, unspecified vessel or lesion type, unspecified whether angina present, unspecified whether mi'kmaq or transplanted heart documented in this encounter Results * EKG 12 Lead (06/02/2023 3:21 PM EDT) Ventricular rate 73 BPM MUSE SYSTEM Atrial Rate 73 BPM MUSE SYSTEM P-R Interval 156 ms MUSE SYSTEM QRS Duration 90 ms MUSE SYSTEM Q-T Interval 384 ms MUSE SYSTEM QTC Calculated (Bezet) 423 ms MUSE SYSTEM Calculated P Geronimo 10 degrees MUSE SYSTEM Calculated R Geronimo -11 degrees MUSE SYSTEM Calculated T Geronimo 47 degrees MUSE SYSTEM INTERPRETATION Normal sinus rhythm 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) Abnormal ECG When compared with ECG of 09-APR-2022 12:48, Nonspecific T wave abnormality, improved in Lateral leads Confirmed by Morelia Alford ([id number]) on 06/03/2023 9:00:59 PM MUSE SYSTEM 06/02/2023 3:21 PM EDT 06/03/2023 9:00 PM EDT Pablito Hunt MD ECG ORDERABLES MUSE SYSTEM documented in this encounter Visit Diagnoses Diagnosis Coronary artery disease, unspecified vessel or lesion type, unspecified whether angina present, unspecified whether mi'kmaq or transplanted heart documented in this encounter Care Teams Shingle Carrier Relationship Specialty Start Date End Date Veronica Campbell APRN [address] [place] [address] PCP - General Family Medicine 01/18/22 documented as of this encounter
--- OUTSIDE RECORDS SUMMARY | 2024-05-18 15:17 | XMS_ITS | Encounter Summary ---
[place] [address] Care Team Providers Care Sewing Machines Salesperson Name Role Phone Veronica Campbell APRN Primary Care Provider [phone] Encounter Details Date Type Department Care Team (Late st Contact Info) Description 02/26/2022 Telephone Cardiology at [address] [address] Conrad Jordan, RN Social History Tobacco Use [...] Telephone Encounter - Conrad Jordan RN - 02/26/2022 12:12 PM EDT Successful connection with Mr. Vera. Reviewed his questions and the answers recorded previously. Additional concern for toe pain today. Agrees to discuss with his PCP - noting history of gout. Expressed appreciation for return call and Nurse review. You have answered all my questions, thank you. Raza Jordan RNblade groover Team Nurse [facility] Ambulatory Cardiology * Telephone Encounter - Conrad Jordan RN - 02/26/2022 7:47 AM EDT Images from the original note were not included. Appreciate (after hours - 19:35) VM from Mrs. Vera. VM details the following three questions: 1). Is it safe to resume prescribed Allopurinol for her 's gout? 2). Is it safe to resume prescribed Metformin? A]. Yes. (From Discharge AVS dated 02/24/2022): 3). In regards to her 's stitch (Perclose to RFA access site): Will this dissolve or does it need to be removed A]. Neither. The Perclose stitch does not dissolve, nor does it need to be removed. (composed of polypropylene/ monofiliment). Call returned to and Mrs. Vera. No answer, routed to . Message left on [employer] messaging system. Offered to address their questions at their availability. Office hours and contact number provided. Raza Jordan RNblade groover Team Nurse [facility] Ambulatory Cardiology documented in this encounter Plan of Treatment Upcoming Encounters Date Type Department Care Team (Late st Contact Info) Description 05/24/2024 2:00 PM EDT Office [place] [address] Bernard Linares MD [facility] [place] [address] 09/07/2024 3:00 PM EST Office Visit Dermatology at [address] [address] Jeremiah Preston MD [facility] [address] [place] [place] [address] documented as of this encounter Visit Diagnoses Not on filedocumented in this encounter Care Teams Sewing Machines Salesperson Relationship Specialty Start Date End Date Veronica Campbell APRN [address] [place] [address] PCP - General Family Medicine 01/18/22 documented as of this encounter
--- OUTSIDE RECORDS SUMMARY | 2024-05-18 15:17 | XMS_ITS | Encounter Summary ---
Author Organization [facility] [place] [address] Care Team Providers Care Rotary Slicing Machine Operator Name Role Phone Adrian Veronica KEARNEY Primary Care Provider [phone] Encounter Details Date Type Department Care Team (Late Contact Info) Description 08/03/2022 [place] [address] Kolton Yang RN Social History Tobacco Use Types Packs/Day [...] encounter Miscellaneous Notes * Telephone Encounter - Kolton Yang RN - 08/03/2022 3:53 PM EST Joana called on behalf of Conrad saying the pharmacy that Dr. Stringer sent the Elma script to can't get them. She is asking for us to send the script to [facility] in [facility] and see if they can get it through them. Script pended to provider and message sent to patient. documented in this encounter Plan of Treatment Upcoming Encounters Date Type Department Care Team (Late st Contact Info) Description 05/24/2024 2:00 PM EDT Office [place] [address] Bernard Linares MD [facility] [place] [address] 09/07/2024 3:00 PM EST Office Visit Dermatology at [facility] [address] [place] [address] Jeremiah Preston MD [facility] [place] [address] documented as of this encounter Visit Diagnoses Not on filedocumented in this encounter Care Teams Rotary Slicing Machine Operator Relationship Specialty Start Date End Date Veronica Campbell APRN [address] [place] [address] PCP - General Family Medicine 01/18/22 documented as of this encounter
--- OUTSIDE RECORDS SUMMARY | 2024-05-18 15:17 | XMS_ITS | Encounter Summary ---
Author Organization [facility] [place] [address] Care Team Providers Care Emt I/85 Name Role Phone Adrian Veronica CHRISTEL Primary Care Provider [phone] Reason for Visit * Auth/Cert Specialty Diagnoses / Procedures Referred By Jason t Referred To Contact Diagnoses CAD (coronary artery disease) Post-Op monitoring Procedures PRG CATH PLMT LEFT HEART CATH & ARTS W/INJ & ANGIO IMG S&I CARDIAC CATHETERIZATION CORONARY ANGIOGRAPHY; W LHC,POSSIBLE PCI Pablito Hunt MD [facility] [place] [address] [facility] Referral ID Status Reason Start Date Expiration Date Visits Re quested Visits Authorized [id number] 1 1 Encounter Details Date Type Department Care Team (Latest Contact Info) Description 02/24/2022 11:26 AM EDT - 02/25/2022 10:15 AM EDT Hospital Encounter Intermediate [place] [address] Pablito Hunt MD [facility] [place] [address] Coronary artery disease due to lipid rich plaque; Encounter for preprocedure screening laboratory testing for COVID-19 Discharge Disposition: Home Social History Tobacco Use [...] Sign Reading Time Taken Comments Blood Pressure 151/77 02/25/2022 7:00 AM EDT Pulse 76 02/25/2022 7:00 AM EDT Temperature 36.3 ??C (97.3 ??F) 02/25/2022 7:00 AM ED T Respiratory Rate 16 02/25/2022 7:00 AM EDT Oxygen Saturation 97% 02/25/2022 7:00 AM EDT Inhaled Oxygen Concentration - - Weight 99.3 kg (218 lb 14.7 oz) 02/25/2022 1:55 AM EDT Height 175.3 cm (5' 9) 02/24/2022 11:5 1 AM EDT Body Mass Index 32.33 02/24/2022 11:51 AM EDT documented in this encounter Discharge Summaries * Chetan Hutchison MD - 02/25/2022 10:15 AM EDT Images from the original note were not included. Discharge Summary Patient Name: Conrad Vera Patient Age: 66 y.o. 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 Imaging was successful. Image quality was good. The distal LM showed severe diffuse atherosclerotic plaque. Post Intervention: The stent was well expanded and apposed. Intravascular Ultrasound was performed in the ostial RPDA using a 6 Fr AL 1 guiding catheter and a 3.5 Fr [place] 20 Mhz using Manual pullback. Imaging was [...] REMOVE Please contact the Blood Bank at [phone] for questions. ??? Amoxicillin-Pot Clavulanate CIS - [...] Administered Date(s) Administered ??? Influenza Vaccine (Novel) [id number], Injectable 07/28/2009 ??? Influenza Vaccine, Whole 07/27/2005, [...] References/Attachments CAD (Coronary Artery Disease): General Info (Pakistani) PCI (Percutaneous Coronary Intervention): Post-op (Pakistani) Chetan Hutchison MD Interventional Cardiology 02/25/22 5:24 PM [facility] Pager: [phone] documented in this encounter Discharge Instructions * [...] * CAD (Coronary Artery Disease): General Info (Pakistani) * PCI (Percutaneous Coronary Intervention): Post-op (Pakistani) documented in this encounter Medications at Time [...] Decision was made to intervene on the [place] ostial LCx and mid RCA given that [...] disease) 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 Hypertension ??? Gout ??? Peptic disease [...] in an outpatient cardiac rehabilitation program at [facility] was discussed. Patient declines a referral at this time. Enc him to contact his assigner should he change his mind. * Plan [...] 2:00 PM EDT Office [place] [address] Bernard Linares MD [facility] [place] [address] 09/07/2024 3:00 PM EST Office Visit Dermatology at [facility] [address] [place] [address] Jeremiah Preston MD [facility] [place] [address] documented as of this encounter Procedures Procedure [...] & Arts W/Inj & Angio Img S&I ([id number]) 02/24/2022 12:26 PM EDT Coronary artery disease due to lipid rich plaque POCT GLUCOSE Routine 02/24/2022 12:01 PM EDT documented in this encounter Results * (ABNORMAL) POCT Glucose (02/25/2022 7:21 AM EDT) [facility] Glucose, POC 235(H) 65 - 199 mg/dL [facility] Comment: Supplemental ranges: <140 mg/dL before meals <180 mg/dL all other times of the day Blood 02/25/2022 7:21 AM EDT 02/25/2022 7:21 AM EDT Pablito Hunt MD POINT OF CARE TEST O RDERABLES [facility] [place] [address] * EKG 12 Lead (02/25/2022 6:02 AM EDT) Ventricular rate 73 BPM MUSE SYSTEM Atrial Rate 73 BPM MUSE SYSTEM P-R Interval 146 ms MUSE SYSTEM QRS Duration 96 ms MUSE SYSTEM Q-T Interval 394 ms MUSE SYSTEM QTC Calculated (Bezet) 434 ms MUSE SYSTEM Calculated P Grant 22 degrees MUSE SYSTEM Calculated R Grant -16 degrees MUSE SYSTEM Calculated T Grant 51 degrees MUSE SYSTEM INTERPRETATION Normal sinus rhythm Possible ??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) Poor R-wave progression Abnormal ECG When compared with ECG of 24-FEB-2022 15:39, (unconfirmed) No significant change was found I personally reviewed the tracing and edited the fellows interpretation Confirmed by fellow Senser, Thaddeus Bess ([id number]) on 02/25/2022 2:30:46 PM Confirmed by MD James, Pablito ([id number]) on 02/25/2022 3:03:12 PM MUSE SYSTEM 02/25/2022 6:02 AM EDT 02/25/2022 3:03 PM EDT Pablito Hunt MD ECG ORDERABLES Performing Organization Address City/[facility]/ZIP Co de Phone Number MUSE SYSTEM * LDL Cholesterol, Direct (02/25/2022 4:30 AM EDT) LDL Cholesterol, Direct 28 mg/dL [facility] Comment: Lowest Risk: <100 mg/dL Lower Risk: 100-129 mg/dL Borderline High Risk: 130-159 mg/dL High Risk: 160-189 mg/dL Very High Risk: >xb=180 mg/dL Blood 02/25/2022 4:30 AM EDT 02/25/2022 4:39 AM EDT Narrative Resulting Agency Comment Spec In Lab Chetan Hutchison MD CHEMISTRY ORDERABLES Performing Organization Address City/[facility]/ZIP Co de Phone Number [facility] [place] [address] * Differential, Automated (02/25/2022 4:30 AM EDT) Neutrophil % 68.9 % [facility] Neutrophil Absolute 5.70 1.70 - 6.10 x10(3)/[facility] Lymph % 20.2 % [facility] Lymphocytes Abs 1.7 0.9 - 3.2 x10(3)/[facility] Monocyte % 7.1 % [facility] Monocyte Abs 0.6 0.3 - 0.9 x10(3)/[facility] Eos % 2.7 % [facility] Eosinophils Abs 0.2 0.0 - 0.4 x10(3)/[facility] Basophil % 0.6 % [facility] Baso Absolute 0.0 0.0 - 0.1 x10(3)/[facility] Immature Gran % 0.50 % [facility] Comment: Immature granulocytes(IG's)percentage and absolute count will include metamyelocytes, myelocytes, and promyelocytes. Blood smears from CBCs yielding IG's will be scanned manually for concordance. If this scan disagrees with the automated IG or if promyelocytes are noted, a manual differential will be performed. Immature Gran Absolute 0.04 0.00 - 0.04 x10(3)/[facility] Blood 02/25/2022 4:30 AM EDT 02/25/2022 4:39 AM EDT Narrative Resulting Agency Comment Spec In Lab Chetan Hutchison MD HEMATOLOGY ORDERABLE S Performing Organization Address City/State/[facility] Co de Phone Number [facility] [place] [address] * (ABNORMAL) Hemogram (02/25/2022 4:30 AM EDT) White Blood Cell 8.3 4.0 - 9.5 x10(3)/mc L [facility] Red Blood Cell 3.88(L) 4.58 - 5.54 x10(6)/mc L [facility] Hemoglobin 12.3(L) 13.7 - 16.5 g/dL [facility] Hematocrit 35.0(L) 40.5 - 48.5 % [facility] Mean Cell Volume 90.2 82.9 - 93.1 fL [facility] Mean Cell Hemoglobin 31.7 27.5 - 32.1 pg [facility] Mean Cell Hemoglobin Concentration 35.1 32.0 - 35.7 g/dL [facility] Platelet 107(L) 145 - 357 x10(3)/mc L [facility] RDW Standard Deviation 43.2 36.0 - 45.0 fL [facility] RDW coefficient of variation 13.3 11.4 - 13.8 % [facility] Mean Platelet Volume 11.1 7.6 - 12.9 fL [facility] NRBC% auto 0.0 % [facility] NRBC Absolute 0.000 0.000 - 0.000 x10(3)/mc L [facility] Blood 02/25/2022 4:30 AM EDT 02/25/2022 4:39 AM EDT Narrative Resulting Agency Comment Spec In Lab Chetan Hutchison MD HEMATOLOGY ORDERABLE S Performing Organization Address City/State/[facility] Co de Phone Number [facility] [place] [address] * Lipid Panel (Reflex Direct LDL) (02/25/2022 4:30 AM EDT) Cholesterol, Total 100 mg/dL [facility] Comment: Lower Risk: <200 mg/dL Average Risk: 200-239 mg/dL Higher Risk: >nf=027 mg/dL Triglyceride 420 mg/dL [facility] Comment: Average Risk/Lower Risk: <150 mg/dL Borderline High Risk: 150-199 mg/dL High Risk: 200-499 mg/dL Very High Risk: >de=576 mg/dL HDL Cholesterol 20 mg/dL [facility] Comment: Males: ?? Higher Risk: <40 mg/dL Females: ?? Higher Risk: <50 mg/dL LDL Cholesterol Not Calculated [facility] Comment: Lowest Risk: <100 mg/dL Lower Risk: 100-129 mg/dL Borderline High Risk: 130-159 mg/dL High Risk: 160-189 mg/dL Very High Risk: >kg=974 mg/dL Cholesterol/HDL Ratio 5.0 ratio [facility] Lipid Interpretation See Note [facility] Comment: Lipid management should be guided by a patient? s ASCVD risk, goals and preferences. ACC/AHA Guidelines recommend high intensity statin if clinical ASCVD or LDL greater than or equal to 190 mg/dL. http://[employer]/ETS-KML-Xusmiadgy Adults aged 40-75 with LDL 70-189 mg/dL should have their 10 year ASCVD risk estimated with the ACC/AHA ASCVD risk estimator and drafter http://tools.acc.org/XQUNA-Qzoe-Qduaqftlq/ Statin should be discussed if risk greater [...] In Lab Pablito Hunt MD CHEMISTRY ORDERABLES Performing Organization Address City/State/[facility] Co de Phone Number [facility] [place] [address] * (ABNORMAL) BMP w/fasting Glucose (02/25/2022 4:30 AM EDT) Glucose Fasting 200(H) 65 - 99 mg/dL [facility] Comment: ?Fasting* Glucose Interpretive Criteria Normal [...] of Diabetes Mellitus, Position Statement from the [place] [employer]. ??Diabetes Care, Volume 33, Supplement 1, Sep 2009 Blood Urea Nitrogen 14 10 - 20 mg/dL [facility] Creatinine 1.12 0.80 - 1.50 mg/dL [facility] Sodium 135 135 - 145 mmol/L [facility] Potassium 4.1 3.5 - 5.0 mmol/L [facility] Comment: Please note: ??Patients with WBC >100,000 may have falsely elevated Potassium levels. ??For accurate Potassium quantification in these patients send serum separator tube (gold top) for subsequent determinations. ??Contact the Clinical Chemistry Laboratory if there are any questions. Chloride 102 98 - 107 mmol/L [facility] Carbon Dioxide 22 22 - 31 mmol/L [facility] Anion Gap 11 5 - 15 mmol/L [facility] Calcium 9.3 8.5 - 10.5 mg/dL [facility] Est Glomerular Filtration Rate 67 >=60 mL/min/1. 73 m?? [facility] Comment: This patient? s estimated glomerular [...] In Lab Pablito Hunt MD CHEMISTRY ORDERABLES [facility] [place] [address] * (ABNORMAL) POCT Glucose (02/24/2022 11:39 PM EDT) Glucose, POC 208(H) 65 - 199 mg/dL [facility] Comment: Supplemental ranges: <140 mg/dL before meals <180 mg/dL all other times of the day Blood 02/24/2022 11:3 9 PM EDT 02/24/2022 11:39 PM EDT Pablito Hunt MD POINT OF CARE TEST O RDERASANDRA [facility] [place] [address] * (ABNORMAL) POCT Glucose (02/24/2022 8:51 PM EDT) Glucose, POC 287(H) 65 - 199 mg/dL [facility] Comment: Supplemental ranges: <140 mg/dL before meals <180 mg/dL all other times of the day Blood 02/24/2022 8:51 PM EDT 02/24/2022 8:51 PM EDT Pablito Hunt MD POINT OF CARE TEST O RDERABLES [facility] [place] [address] * POCT Glucose (02/24/2022 6:40 PM EDT) Glucose, POC 111 65 - 199 mg/dL [facility] Comment: Supplemental ranges: <140 mg/dL before meals <180 mg/dL all other times of the day Blood 02/24/2022 6:40 PM EDT 02/24/2022 6:40 PM EDT Pablito Hunt MD POINT OF CARE TEST O RDERABLES [facility] [place] [address] * COVID-19 PCR (02/24/2022 4:54 PM EDT) SARS-CoV-2 RNA Not Detected Not Detected [facility] Comment: This result should be interpreted [...] diagnosis of COVID-19 is performed using the [employer] m SARS-CoV-2 Assay as authorized by the FDA Emergency Use Authorization (EUA). This EUA assay is intended for In-vitro Diagnostic (IVD) use with respiratory specimens such as nasopharyngeal swabs collected from individuals during the acute phase of infection. This assay is performed based on the instructions for use provided by [employer] and additional guidance provided by CDC and FDA. Testing is performed in the [facility] Laboratory within the Department of Pathology and Laboratory Medicine at [facility], certified under the Clinical Laboratory Improvement Amendments [...] fact sheets at the following FDA website: https://www.fda.gov/medical-devices/cnprkhahhzj-hckssvj-8936-qxvqq-88-ugwoufxuw- use-a apbhntsyjwwtz-zkczdpk-zpkqnlw/xdrdy-wfaswjyfiqv-lsxr SARS-CoV-2 RNA Source MOLDING ROOM SUPERVISOR Swab [facility] Nasopharyngeal Swab 02/25/20 4:54 PM EDT 02/24/2022 9:01 PM EDT Comment:Symptoms->Asymptomat ic Narrative Resulting Agency Comment Spec In Lab Pablito Hunt MD MOLECULAR ORDERABLES [facility] [place] [address] * EKG 12 Lead (02/24/2022 3:39 PM EDT) Ventricular rate 69 BPM MUSE SYSTEM Atrial Rate 69 BPM MUSE SYSTEM P-R Interval 152 ms MUSE SYSTEM QRS Duration 96 ms MUSE SYSTEM Q-T Interval 386 ms MUSE SYSTEM QTC Calculated (Bezet) 413 ms MUSE SYSTEM Calculated P Grant 18 degrees MUSE SYSTEM Calculated R Grant -10 degrees MUSE SYSTEM Calculated T Grant 43 degrees MUSE SYSTEM INTERPRETATION Normal sinus [...] AM EDT Pablito Hunt MD ECG ORDERABLES MUSE SYSTEM * CARDIAC CATHETERIZATION (02/24/2022 3:08 PM EDT) Anatomical Region Laterality Modality Other Narrative 02/24/2022 6:14 PM EDT ?[facility] ? Cardiac Catheterization/Intervention Report ? Patient Name: Vera, Conrad Willis. ? Procedure Date: 02/24/2022 ? A #: [id number] ? Primary Physician: Pablito Hunt ? Case #: [id number] ? File Name: [id number] ? Catheterization Order Number: [id number] ? [facility] ? Final Report [place], [place] ? Patient Name: ? Conrad Willis. Chuy ? ID#: ?[id number] ? : ?1955 ? Procedure Date: ? [...] was ?designated as ASA Class III. The [facility] clinical frailty scale is 5: Mildly [...] procedure was Elective. The indication for ?the director of cardiac cath lab visit is worsening angina. Chest pain symptom [...] ?3.5 guiding catheter and a 3.5 Fr [place] [address] ??20 Mhz using ?auto 1 mm/sec pullback. ??Imaging was successful. ??Image quality was good. ? The distal LM showed severe diffuse atherosclerotic plaque. ?Post Intervention: The stent was well expanded and apposed. ?Intravascular Ultrasound was performed in the ostial RPDA using a 6 Fr AL ?1 guiding catheter and a 3.5 Fr [place] 20 Mhz using Manual ?pullback. ??Imaging was [...] may require ?modification of this regimen. Consult [facility] Interventional Cardiology for ?questions. ?The 1 year [...] Glucose, POC 178 65 - 199 mg/dL [facility] Comment: Supplemental ranges: <140 mg/dL before meals <180 mg/dL all other times of the day Blood 02/24/2022 2:58 PM EDT 02/24/2022 2:58 PM EDT Pablito Hunt MD POINT OF CARE TEST O RDERABLES Performing Organization Address [facility] de Phone Number [facility] [place] [address] * (ABNORMAL) POCT Glucose (02/24/2022 12:01 PM EDT) Glucose, POC 213(H) 65 - 199 mg/dL [facility] Comment: Supplemental ranges: <140 mg/dL before meals <180 mg/dL all other times of the day Blood 02/24/2022 12:0 1 PM EDT 02/24/2022 12:01 PM EDT Pablito Hunt MD POINT OF CARE TEST O RDERABLES Performing Organization Address [facility] de Phone Number [facility] [place] [address] documented in this encounter Visit Diagnoses Diagnosis Coronary artery disease due to lipid rich plaque Encounter for preprocedure screening laboratory testing for COVID-19 CAD (coronary artery disease) Coronary atherosclerosis of unspecified type of vessel, [place] or graft Coronary artery disease due to lipid rich plaque documented in this encounter Admitting Diagnoses Diagnosis CAD (coronary artery disease) Coronary atherosclerosis of unspecified type of vessel, [place] or graft documented in this encounter Administered Medications Inactive Administered Medications - up to 3 most recent administrations Medication Order MAR Action Action Date Dose Rate Site acetaminophen (Tylenol) tablet 650 mg 650 mg, Oral, EVERY 6 HOURS PRN, Starting on Wed02/25/22 at 0209, Until Wed02/25/22 at 1216, Headaches Given 02/25/2022 2:20 AM EDT 650 mg amLODIPine (Norvasc) tablet 5 mg 5 mg, [...] Given 02/25/2022 8:48 AM EDT 75 mg dextrose 10% infusion 250 mL, at [...] for the duration of the active insulin. glucagon (Glucagen) (1 mg/mL) injection solution 1 [...] weight of tube = 37.5 grams.), Routine insulin lispro (HumaLOG;Admelog) (100 unit/mL) subcutaneous injection [...] Routine Given 02/25/2022 8:50 AM EDT 2 Units Given 02/24/2022 9:53 PM EDT 4 Units isosorbide mononitrate CR (Imdur) tablet 30 mg 30 mg, Oral, DAILY, First dose on Wed02/25/22 at 0600, Until Discontinued, DO NOT CRUSH OR OPEN, Routine Given 02/25/2022 6:41 AM EDT 30 mg losartan (Cozaar) tablet 50 mg 50 mg, Oral, DAILY, First dose on Wed02/25/22 at 0900, Until Discontinued, Routine Given 02/25/2022 8:48 AM EDT 50 mg sodium chloride 0.9% infusion 150 mL/hr, [...] Owen RN) 0850 (Given - Provider: Ester Zarate RN) isosorbide mononitrate CR (Imdur) tablet 30 mg [...] Headaches 0220 (Given - Provid er: Margareth L Lexie, RN) alum-mag hydroxide-simeth (Maalox) (40 mg-40 mg-4 [...] (Intra-Procedure), Routine 1250 (Given - Provider: Caden Lundberg RN)1315 (Given - Provider: Caden Lundberg, ROSENDO)1325 (Given - Provider: Rissa Steevnson RN)1325 (Given - Provider: Boo Lopez)1344 (Given [...] Routine documented in this encounter Care Teams Emt I/85 Relationship Specialty Start Date End Date Veronica Campbell APRN [address] [place] [address] PCP - General Family Medicine 01/18/22 documented as of this encounter
--- OUTSIDE RECORDS SUMMARY | 2024-05-18 15:17 | XMS_ITS | Encounter Summary ---
[place] [address] Care Team Providers Care Draw Press Operator Name Role Phone Veronica Campbell APRN Primary Care Provider Reason for Referral * Consultation (Routine) - Closed Specialty Diagnoses / Procedures Referred By Jason garcia Referred To Contact Endocrinology Diagnoses Type 2 diabetes mellitus without complication, unspecified whether buttermilk drier operator insulin use Veronica Campbell APRN [address] [place] [address] [facility] [address] [place] [phone] Referral ID Status Reason Start Date Expiration Date V isits Requested Visits Authorized [id number] Closed Consult, Test & Treat PCP Updated and/or Approved 05/08/2022 05/08/2023 6 6 Encounter Details Date Type Department Care Team (Latest Contact Info) Description 05/08/2022 Transcribe Orders eDH Incoming Referrals [phone] Veronica Campbell APRN [address] [place], [place] [address] Type 2 diabetes mellitus without complication, unspecified whether buttermilk drier operator insulin use Social History Tobacco Use Types Packs/Day Years [...] 2:00 PM EDT Office [place] [address] Bernard Linares MD [facility] [place] [address] 09/07/2024 3:00 PM EST Office Visit Dermatology at [facility] [address] [place] [address] Jeremiah Preston MD [facility] [address] [place] [address] Scheduled Referrals Name Type Priority Associated Diagnoses Order Schedule Referral to Endocrinology Outpatient Referral Routine Type 2 diabetes mellitus without complication, unspecified whether buttermilk drier operator insulin use Ordered: 05/08/2022 documented as of this encounter Visit Diagnoses Diagnosis Type 2 diabetes mellitus without complication, unspecified whether long-term insulin use documented in this encounter Care Teams Draw Press Operator Relationship Specialty Start Date End Date Veronica Campbell APRN [address] [place] [address] PCP - General Family Medicine 01/18/22 documented as of this encounter
--- OUTSIDE RECORDS SUMMARY | 2024-05-18 15:17 | XMS_ITS | Encounter Summary ---
Author Organization [facility] [place] [address] Care Team Providers Care Summer Law Clerk Name Role Phone Veronica Campbell APRN Primary Care Provider [phone] Encounter Details Date Type Department Care Team (Late st Contact Info) Description 12/01/2022 Ancillary Procedure [place] [address] Veronica Campbell APRN [address] [place], [place] [address] Social History Tobacco Use Types Packs/Day Years [...] 2:00 PM EDT Office [place] [address] Bernard Linares MD [facility] [place] [address] 09/07/2024 3:00 PM EST Office Visit Dermatology at [facility] [address] [place] [address] Jeremiah Preston MD [facility] [place] [address] documented as of this encounter Procedures Procedure Name Priority Date/Time Associated Diagnosis Comments FILM LIBRARY STORAGE ONLY DX SHOULDER Routine 12/01/2022 12:00 AM EST documented in this encounter Results * Film Library- Storage Only DX Shoulder (12/01/2022 12:00 AM EST) Narrative [facility] - 11/08/2023 5:00 PM EST This exam is auto-finalizing. It's purpose is for storage only. Veronica Campbell APRN IMAlfred FILM LIBRARY ORD ERABLES Performing Organization Address City/State/[facility] Co de Phone Number [place], [place] documented in this encounter Visit Diagnoses Not on filedocumented in this encounter Care Teams Summer Law Clerk Relationship Specialty Start Date End Date Veronica Campbell APRN [address] [place] [address] PCP - General Family Medicine 01/18/22 documented as of this encounter
--- OUTSIDE RECORDS SUMMARY | 2024-05-18 15:17 | XMS_ITS | Encounter Summary ---
Author Organization [facility] [place] [address] Care Team Providers Care Timber Rider Name Role Phone Veronica Campbell CHRISTEL Primary Care Provider [phone] Encounter Details Date Type Department Care Team (Late st Contact Info) Description 07/22/2023 Telephone [place] [address] Ashley Van Social History Tobacco Use Types [...] 2:00 PM EDT Office Visit [place] [address] Bernard Linares MD [facility] [place] [address] 09/07/2024 3:00 PM EST Office Visit Dermatology at [facility] [address] [place] [address] Jeremiah Preston MD [facility] [address] YARA WHITEHEAD[place] [address] documented as of this encounter Visit Diagnoses Not on filedocumented in this encounter Care Teams Timber Rider Relationship Specialty Start Date End Date Veronica Campbell APRN [address] [place] [address] PCP - General Family Medicine 01/18/22 documented as of this encounter
--- OUTSIDE RECORDS SUMMARY | 2024-05-18 15:17 | XMS_ITS | Encounter Summary ---
[place] [address] Care Team Providers Care Negative Spotter Name Role Phone AdrianVeronica CHRISTEL Primary Care Provider Encounter Details Date Type Department Care Team (Late st Contact Info) Description 06/25/2022 Telephone Cardiology at [address] [address] Conrad Jordan, RN Social History Tobacco Use [...] Telephone Encounter - Conrad Jordan RN - 06/25/2022 7:[address] Hunt's note as well as the prompt from my colleague, Enedina. Call returned to Mr. Vera; pleasant connection with both and Mrs. Vera by speaker phone. Agrees to continue Plavix uninterrupted. Understands no pre dental prophylaxis needed. Appreciative ofearly morning follow up today. Raza Jordan RNmedical assistant internal medicine Team Nurse [facility] Ambulatory Cardiology documented in this encounter Plan of Treatment Upcoming Encounters Date Type Department Care Team (Late st Contact Info) Description 05/24/2024 2:00 PM EDT Office [place] [address] Bernard Linares MD [facility] [place] [address] 09/07/2024 3:00 PM EST Office Visit Dermatology at [place] [address] [place] [address] Jeremiah Preston MD [facility] [address] Y[address] [place] [address] documented as of this encounter Visit Diagnoses Not on filedocumented in this encounter Care Teams Negative Spotter Relationship Specialty Start Date End Date Veronica Campbell APRN [address] [place] [address] PCP - General Family Medicine 01/18/22 documented as of this encounter
--- OUTSIDE RECORDS SUMMARY | 2024-05-18 15:17 | XMS_ITS | Encounter Summary ---
Author Organization [facility] [place] [address] Care Team Providers Care Bottom Worker Name Role Phone Veronica Campbell ELECTRICIAN MARINE Primary Care Provider [phone] Encounter Details Date Type Department Care Team (Late st Contact Info) Description 05/12/2022 External Results Cardiology at [address] [address] Conrad Jordan, RN Social History Tobacco Use [...] 2:00 PM EDT Office Visit [place] [address] Bernard Linares MD [facility] [place] [address] 09/07/2024 3:00 PM EST Office Visit Dermatology at [facility] [address] [place] [address] Jeremiah Preston MD [facility] [address] [place] [address] documented as of this encounter Visit Diagnoses Not on filedocumented in this encounter Care Teams Bottom Worker Relationship Specialty Start Date End Date Veronica Campbell APRN [address] [place] [address] PCP - General Family Medicine 01/18/22 documented as of this encounter
--- OUTSIDE RECORDS SUMMARY | 2024-05-18 15:17 | XMS_ITS | Encounter Summary ---
[place] [address] Care Team Providers Care Bulldozer Press Operator Name Role Phone Veronica Campbell CHRISTEL Primary Care Provider [phone] Reason for Visit * Reason Onset Date Comments Questions 06/24/2022 Dental cleaning Encounter Details Date Type Department Care Team (Late st Contact Info) Description 06/24/2022 Telephone Cardiology at [address] [address] Enedina Fay, RN Questions (Dental cleaning) Social History Tobacco Use Types Packs/Day Years [...] encounter Miscellaneous Notes * Telephone Encounter - Enedina Fay, RN - 06/24/2022 5:55 PM EDT , Joana left on the nurse triage line stating the pt is scheduled for dental cleaning tomorrow. Should he hold his Plavix and does he need to take prophylactic antibiotic? Call returned to the home number listed. Call went to . Message left asking that she call Dr Hunt's team nurse tomorrow morning for further assistance. Given the Team number. documented in this encounter Plan of Treatment Upcoming Encounters Date Type Department Care Team (Late st Contact Info) Description 05/24/2024 2:00 PM EDT Office Visit [place] [address] Bernard Linares MD [facility] [address] 09/07/2024 3:00 PM EST Office Visit Dermatology at [facility] [address] [place] [address] Jeremiah Preston MD [facility] [place] [address] documented as of this encounter Visit Diagnoses Not on filedocumented in this encounter Care Teams Bulldozer Press Operator Relationship Specialty Start Date End Date Veronica Campbell APRN [address] [place] [address] PCP - General Family Medicine 01/18/22 documented as of this encounter
--- OUTSIDE RECORDS SUMMARY | 2024-05-18 15:17 | XMS_ITS | Encounter Summary ---
Author Organization [facility] Address [facility] [place] [address] Care Team Providers Care Bunk Assembler Name Role Phone Veronica Campbell CHRISTEL Primary Care Provider [phone] Encounter Details Date Type Department Care Team (Latest Contact Info) Description 04/09/2022 2:13 PM EDT - 04/09/2022 11:59 PM EDT Hospital Encounter XRay at [address] [place] [address] Pbalito Hunt MD [facility] [place] [address] SOB (shortness of breath) Discharge Disposition: Home Social History Tobacco Use [...] mouth 2 times daily (with meals). 12/12/2010 icosapent ethyL (Vascepa) 1 gram Capsule Take 2 capsules by mouth 2 times daily. 180 capsule 3 04/09/2022 04/22/2022 clopidogreL (Plavix) 75 mg Tablet Take 1 tablet by mouth daily. 90 tablet 1 02/25/2022 06/02/2023 Trulicity 1.5 mg/0.5 mL Pen Injector 12/07/2021 11/18/2023 amLODIPine (Norvasc) 5 mg Tablet Take 1 tablet by mouth daily. 30 tablet 3 01/29/2022 06/02/2023 isosorbide mononitrate CR (Imdur) 30 mg Tablet Sustained Release 24 hr Take 1 tablet by mouth daily. 30 tablet 3 01/29/2022 06/02/2023 documented as of this encounter Plan of Treatment Upcoming Encounters Date Type Department Care Team (Late st Contact Info) Description 05/24/2024 2:00 PM EDT Office [place] [address] Bernard Linares MD [facility] [place] [place] [address] 09/07/2024 3:00 PM EST Office Visit Dermatology at [facility] [address] [place] [address] Jeremiah Preston MD [facility] [address] YARA [place] [address] documented as of this encounter Procedures Procedure Name Priority Date/Time Associated Diagnosis Comments XR CHEST PA AND LATERAL Routine 04/09/2022 2:19 PM EDT SOB (shortness of breath) documented in this encounter Results * XR Chest PA & Lateral (Generic) (04/09/2022 2:19 PM EDT) Anatomical Region Laterality Modality Chest N/A Digital Radiogra phy Impressions 04/09/2022 3:28 PM EDT No acute cardiopulmonary process. I have personally reviewed the image(s) and the resident's interpretation and agree with the findings, Paulie Glez DO at 04/09/2022 3:28 PM Thank you for letting us participate in the care of this patient. ??If you are a health care provider and have any questions regarding this report, please contact the number below. ??For patients who have questions please contact the health adult caregiver that requested your imaging first. ? Electronically signed by: Paulie Glez DO, [facility] ([phone]), at 04/09/2022 3:28 PM Narrative 04/09/2022 3:28 PM EDT EXAMINATION: XR CHEST PA AND LATERAL (GENERIC) CLINICAL HISTORY: Increasing KAUR TECHNIQUE: PA and lateral views of the chest COMPARISON: Chest radiograph 12/12/2010 FINDINGS: Median sternotomy wires are intact. Coronary artery stents and surgical clips project within the mediastinum. The lungs are clear. No pleural effusion or pneumothorax. The cardiomediastinal silhouette is normal. No acute osseous findings. Procedure Note Paulie Glez DO - 04/09/2022 EXAMINATION: XR CHEST PA AND LATERAL (GENERIC) CLINICAL HISTORY: Increasing KAUR TECHNIQUE: PA and lateral views of the chest COMPARISON: Chest radiograph 12/12/2010 FINDINGS: Median sternotomy wires are intact. Coronary artery stents and surgicalclips project within the mediastinum. The lungs are clear. No pleural effusionor pneumothorax. The cardiomediastinal silhouette is normal. No acuteosseous findings. IMPRESSION No acute cardiopulmonary process. I have personally reviewed the image(s) and the resident's interpretationand agree with the findings, Paulie Glez DO at 04/09/2022 3:28 PM Thank you for letting us participate in the care of this patient. If youare a health care provider and have any questions regarding this report,please contact the number below. For patients who have questions please contactthe health adult caregiver that requested your imaging first. Electronically signed by: Paulie Glez DO, [facility]([phone]), at 04/09/2022 3:28 PM Pablito Hunt MD IMG DX ORDERABLES documented in this encounter Visit Diagnoses Diagnosis SOB (shortness of breath) Shortness of breath documented in this encounter Care Teams Bunk Assembler Relationship Specialty Start Date End Date Veronica Campbell APRN [address] [place] [address] PCP - General Family Medicine 01/18/22 documented as of this encounter
--- OUTSIDE RECORDS SUMMARY | 2024-05-18 15:17 | XMS_ITS | Encounter Summary ---
[place] [address] Care Team Providers Care Slipcover Cutter Name Role Phone Veronica Campbell APRN Primary Care Provider [phone] Reason for Visit * Reason Onset Date Comments Medication Refill 02/25/2022 Encounter Details Date Type Department Care Team (Late st Contact Info) Description 02/25/2022 Refill Cardiology at [address] [address] Nicolle Campos, door repairman Refill Social History Tobacco Use Types Packs/Day [...] encounter Miscellaneous Notes * Telephone Encounter - Nicolle Campos RN - 02/25/2022 1:02 PM EDT VM from that pt had a procedure yesterday and they received a medication but future refills will need to go to mail order Pharmacy called [facility]. She requests a call to discuss Chart reviewed. Discharged yesterday Call to and they need a 90 day script and their mail order will not accept transferred scripts. verbalizes her understanding that they may have an extra 30 days of the medication by doing it this way. Requested Prescriptions Pending Prescriptions Disp Refills ??? clopidogreL (Plavix) 75 mg Tablet 90 tablet 1 Sig: Take 1 tablet by mouth daily. Nicolle Campos RN 4A Cardiology documented in this encounter Plan of Treatment Upcoming Encounters Date Type Department Care Team (Late st Contact Info) Description 05/24/2024 2:00 PM EDT Office [place] [address] Bernard Linares MD [facility] [place] [address] 09/07/2024 3:00 PM EST Office Visit Dermatology at [facility] [address] [place] [address] Jeremiah Preston MD [facility] [address] [place] [address] documented as of this encounter Visit Diagnoses Not on filedocumented in this encounter Care Teams Slipcover Cutter Relationship Specialty Start Date End Date Veronica Campbell APRN [address] [place] [address] PCP - General Family Medicine 01/18/22 documented as of this encounter
--- OUTSIDE RECORDS SUMMARY | 2024-05-18 15:17 | XMS_ITS | Encounter Summary ---
Author Organization [facility] [place] [address] Care Team Providers Care Corduroy Brusher Operator Name Role Phone Veronica Campbell CHRISTEL Primary Care Provider [phone] Encounter Details Date Type Department Care Team (Late st Contact Info) Description 02/25/2022 Orders Only Cardiology at [address] [address] Chetan Hutchison MD [facility] [place] [address] Social History Tobacco Use Types Packs/Day Years [...] 2:00 PM EDT Office [place] [address] Bernard Linares MD [facility] [place] [address] 09/07/2024 3:00 PM EST Office Visit Dermatology at [facility] [address] [place] [address] Jeremiah Preston MD [facility] DR YARA [place] [address] documented as of this encounter Visit Diagnoses Not on filedocumented in this encounter Care Teams Corduroy Brusher Operator Relationship Specialty Start Date End Date Veronica Campbell APRN [address] [place] [address] PCP - General Family Medicine 01/18/22 documented as of this encounter
--- OUTSIDE RECORDS SUMMARY | 2024-05-18 15:17 | XMS_ITS | Encounter Summary ---
[place] [address] Care Team Providers Care Bottle Machine Operator Name Role Phone Veronica Campbell APRN Primary Care Provider [phone] Encounter Details Date Type Department Care Team (Late st Contact Info) Description 05/12/2022 Telephone Cardiology at [address] [phone] Conrad Jordan, RN Social History Tobacco Use [...] Telephone Encounter - Conrad Jordan, RN - 05/12/2022 2:06 PM EDT Images from the original note were not included. Spoke with Raza and his . He is in favor of exercising on his own for a month and deferring further testing for now. Admits to occasional angina (likely small vessel dz). For now we will defer increasing pharmacotherapy and reassess at his next visit. Pablito Hunt MD 05/13/2022 9:51 AM Appreciate VM prompt from Mrs. Vera, calling on behalf of her Conrad. Today noting that her 's PFT results are now available. Completed at [facility] and available in [employer]. Seeking Dr. Hunt's non urgent review and direction. JAYME 04/09/2022 (Execerpt below): 1. Will order a CXR and PFT's to start pulmonary workup and obtain a BMP, ProBNP and CBC. If these are unremarkable, will proceed with level 1 CPET testing. We agreed that cardiac rehab was also reasonable. Pleasant connection with Mrs. Vera. Aware that Dr. Hunt returns to the Clinic on 05/14. Content to await his expert review and his availability. Anxious to discuss next steps. 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 (Nuanced concern for risk of Covid exposure while enrolled in local rehab program). Raza Jordan, central office technician Team Nurse [facility] Ambulatory Cardiology documented in this encounter Plan of Treatment Upcoming Encounters Date Type Department Care Team (Late st Contact Info) Description 05/24/2024 2:00 PM EDT Office [place] [address] Bernard Linares MD [facility] [place] [address] 09/07/2024 3:00 PM EST Office Visit Dermatology at [place] [address] [place] [address] Jeremiah Preston MD [facility] [place] [address] documented as of this encounter Visit Diagnoses Not on filedocumented in this encounter Care Teams Bottle Machine Operator Relationship Specialty Start Date End Date Veronica Campbell APRN [address] [place] [address] PCP - General Family Medicine 01/18/22 documented as of this encounter
--- OUTSIDE RECORDS SUMMARY | 2024-05-18 15:17 | XMS_ITS | Encounter Summary ---
[place] [address] Care Team Providers Care Import Export Coordinator Name Role Phone Veronica Campbell APRN Primary Care Provider [phone] Encounter Details Date Type Department Care Team (Late st Contact Info) Description 07/29/2022 Telephone Cardiology at [address] [phone] Nicolle Campos, RN Social History Tobacco Use Types Packs/Day [...] encounter Miscellaneous Notes * Telephone Encounter - Niclole Campos RN - 07/29/2022 8:[address] As per Dr. Hunt It doesn't appear that he is taking imdur but it is on his med list so if you don't mind confirming that he isn't taking it. Cialis does not typically have dangerous cardiovascular effects, so I don't have a problem with him taking it, as long as he feels that he is able to engage in sex. Do you mind relaying that to him and if he would like me to evaluate him further in clinic with a stress test to confirm I would be happy to. Brief message left on phone that I had his his answer and would also be sending a [employer] message. Answering system does not identify patient, Nicolle Campos RN 4A Cardiology , documented in this encounter Plan of Treatment Upcoming Encounters Date Type Department Care Team (Late st Contact Info) Description 05/24/2024 2:00 PM EDT Office Visit [place] [address] Bernard Linares MD [facility] [address] 09/07/2024 3:00 PM EST Office Visit Dermatology at [facility] [address] [place] [address] Jeremiah Preston MD [facility] DR Y[address] [place] [address] documented as of this encounter Visit Diagnoses Not on filedocumented in this encounter Care Teams Import Export Coordinator Relationship Specialty Start Date End Date Veronica Campbell APRN [address] [place] [address] PCP - General Family Medicine 01/18/22 documented as of this encounter
--- OUTSIDE RECORDS SUMMARY | 2024-05-18 15:17 | XMS_ITS | Encounter Summary ---
Author Organization [facility] [place] [address] Care Team Providers Care Operational Trainer Name Role Phone Veronica Campbell CHRISTEL Primary Care Provider [phone] Encounter Details Date Type Department Care Team (Latest Contact Info) Description 07/26/2023 Travel Social History Tobacco Use Types Packs/Day [...] 2:00 PM EDT Office [place] [address] Bernard Linares MD [facility] [place] [address] 09/07/2024 3:00 PM EST Office Visit Dermatology at [facility] [address] [place] [address] Jeremiah Preston MD [facility] [address] YARA WHITE[place] [address] documented as of this encounter Visit Diagnoses Not on filedocumented in this encounter Care Teams Operational Trainer Relationship Specialty Start Date End Date Veronica Campbell APRN [address] [place] [address] PCP - General Family Medicine 01/18/22 documented as of this encounter
--- OUTSIDE RECORDS SUMMARY | 2024-05-18 15:17 | XMS_ITS | Encounter Summary ---
Author Organization [facility] [place] [place] [address] Care Team Providers Care Hat Sizer Name Role Phone Veronica Campbell CHRISTEL Primary Care Provider [phone] Encounter Details Date Type Department Care Team (Late st Contact Info) Description 04/09/2022 1:00 PM EDT Office Visit Cardiology at [address] [address] Pablito Hunt MD [facility] [place] [address] Coronary artery disease involving coronary bypass graft of samish heart without angina pectoris (Primary Dx); SOB (shortness of breath); Coronary artery disease due to lipid rich plaque; Primary hypertension Social History Tobacco Use Types Packs/Day Years [...] Sign Reading Time Taken Comments Blood Pressure 159/83 04/09/2022 12:42 PM EDT Pulse 84 04/09/2022 12:42 PM EDT Temperature - - Respiratory Rate - - Oxygen Saturation 99% 04/09/2022 12:42 PM EDT Inhaled Oxygen Concentration - - Weight 99.1 kg (218 lb 6.4 oz) 04/09/2022 12:42 PM EDT Height 177.8 cm (5' 10) 04/09/2022 12:42 PM EDT Reported Body Mass Index 31.34 04/09/2022 12:42 PM EDT documented in this encounter Progress Notes * Pablito Hunt MD - 04/09/2022 1:00 PM EDT Images from the original note were not included. [facility] [place] [address] Referring Provider: Chetan Hutchison MD [facility] [place] [address] Reason for Consultation / Chief Complaint: Dyspnea on exertion Past Cardiac History and Relevant Comorbidities: Coronary disease status post CABG (FOREMAN to LAD, SVG to RCA, SVG to OM) Diabetes Hyperlipidemia Obesity Hypertension HPI: Conrad Vera is a 67 y.o. male with history of the above cardiovascular issues who presentsfor evaluation of his cardiovascular disease. Raza presents for follow up after his PCI to the LCX and RCA. To recap, he had been complaining of crescendo angina and worsening dyspnea reminiscent of his presentation prior to his CABG. We proceeded to the laborer aquatic [facility] where angiography demonstrated high grade RCA disease and LM/LCX disease with occluded SVGs to both. PCI was performed with AARON's deployed in both lesions with excellent IVUS/angiogrpahic result. No complications. Since he was revascularized, he noticed no changes in his symptoms unfortunately. He still experiences significnat KAUR when walking up inclines. No palpitations/syncope. No other significant symptoms. No bleeding issues. Other Past Medical History: Patient Active Problem List Diagnosis Code ??? CAD (coronary artery disease) I25.10 ??? Hypertension I10 ??? Gout M10.9 ??? Peptic disease K30 ??? Diabetes mellitus E11.9 ??? Kidney stones N20.0 ??? Obesity E66.9 ??? Memory loss R41.3 ??? Coronary artery disease involving coronary bypass graft I25.810 ??? Diverticular disease K57.90 ??? 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 Family History: Father of [place], mother's extended family with heart failure ALLERGIES: Allergies Allergen Reactions ??? Red Blood Cells Antibodies-Difficult to Crossmatch DO NOT REMOVE Please contact the Blood Bank at [phone] for questions. ??? Amoxicillin-Pot Clavulanate CIS - [...] causes GI shutdown MEDICATIONS: Current Outpatient Medications: ??? atorvastatin (Lipitor) 20 mg Tablet, Take 1 tablet by mouth nightly., Disp: 90 tablet, Rfl: 3 ??? clopidogreL (Plavix) 75 mg Tablet, Take 1 tablet by mouth daily., Disp: 90 tablet, Rfl: 1 ??? Trulicity 1.5 mg/0.5 mL Pen Injector, , Disp: , Rfl: ??? nitroGLYcerin (Nitrostat) 0.4 mg Tablet, Sublingual, Place 0.4 mg under the tongue every 5 minutes as needed for Chest pain., Disp: , Rfl: ??? aspirin EC 81 mg Tablet, Delayed Release (E.C.), Take 81 mg by mouth daily., Disp: , Rfl: ??? allopurinol (ZYLOPRIM) 300 mg tablet, 300 mg, PO, Once daily, Disp: , Rfl: ??? losartan (COZAAR) 50 mg tablet, 50 mg, PO, Once daily, Disp: , Rfl: ??? metFORMIN (GLUCOPHAGE) 500 mg tablet, 500 MG = 1 Tablet(s), PO, Once daily, Disp: , Rfl: ??? icosapent ethyL (Vascepa) 1 gram Capsule, Take 2 capsules by mouth 2 times daily., Disp: 180 capsule, Rfl: 3 ??? amLODIPine (Norvasc) 5 mg Tablet, Take 1 tablet by mouth daily. (Patient not taking: Reported on 04/09/2022), Disp: 30 tablet, Rfl: 3 ??? isosorbide mononitrate CR (Imdur) 30 mg Tablet Sustained Release 24 hr, Take 1 tablet by mouth daily. (Patient not taking: Reported on 04/09/2022), Disp: 30 tablet, Rfl: 3 ROS: As per HPI, otherwise the remainder of the ROS was either non-pertinent or negative. PHYSICAL EXAM: Vitals: 04/09/22 1242 BP: 159/83 Patient Position: Sitting Pulse: 84 SpO2: 99% Weight: 99.1 kg (218 lb 6.4 oz) Height: 177.8 cm (5' 10) Constitutional: In [...] with no audible carotid bruits. JVP was at 5cm H2O above the RA. Skin: No visible rashes or bruises on arms or face Neuro: Non-focal. Moves all extremities without limitation. Gait is normal CN nerves not examined. Psych: Mood appropriate. Thought process is linear Extremity: RLE:No LE edema, LLE: No LE edema, RUE: 2+ radial pulse LUE: 2+ radial pulse DIAGNOSTIC TESTS (I have personally reviewed the following images/tracings and the following is my own assessment): ECG 03/2022: Cardiac catheterization 02/2022: High-grade distal left main, [...] 01/2022: Sinus rhythm with PVCs, prior inferior NE TTE 12/2021: Normal biventricular systolic function, EF 62%, normal valves, ascending aorta 3.7 cm Lipid Panel Lab Results Component Value Date CHLPL 100 02/25/2022 HDL 20 02/25/2022 CHOLHDL 5.0 02/25/2022 TRIG 420 02/25/2022 LDLCHOL Not Calculated 02/25/2022 LDLDIRECT 28 02/25/2022 A/P: Conrad Vera is a 67 y.o. male who presents for evaluation of the following cardiovascular issues: 1. Coronary artery disease status post CABG with repeat/worsening dyspnea on exertion: It is disappointing to see no improvement following revascularization of his coronaries. I advised that taking astep back and pursuing a more global approach to dyspnea on exertion is likely the best approach. Will order a CXR and PFT's to start pulmonary workup and obtain a BMP, ProBNP and CBC. If these are unremarkable, will proceed with level 1 CPET testing. We agreed that cardiac rehab was also reasonable. 2. Hypertension: Continue current medication regimen. Plan to up escalate therapy if continued suboptimal control 3. Hyperlipidemia: Continue lipitor 20mg, LDL at 28. Triglycerides poorly controlled, as per guidelines will start icosapent ethyl. 4. DM2: Management as per primary care physician Recommendations: 1: start icosapent ethyl mena 2: cardiac rehab 3: PFT and CXR 4: BMP, CBC, Pro-BNP Pablito Hunt MD 04/10/2022 8:31 AM documented in this encounter Plan of Treatment Upcoming Encounters Date Type Department Care Team (Late st Contact Info) Description 05/24/2024 2:00 PM EDT Office [place] [address] Bernard Linares MD [facility] [place] [address] 09/07/2024 3:00 PM EST Office Visit Dermatology at [facility] [address] [place] [address] Jeremiah Preston MD [facility] [place] [address] documented as of this encounter Procedures Procedure Name Priority Date/Time Associated Diagnosis Comments HEMOGRAM Routine 04/09/2022 2:08 PM EDT Coronary artery disease involving coronary bypass graft of samish heart without angina pectoris DIFFERENTIAL, AUTOMATED Routine 04/09/2022 2:08 PM EDT Coronary artery disease involving coronary bypass graft of samish heart without angina pectoris HC VENIPUNCTURE Routine 04/09/2022 2:08 PM EDT Coronary artery disease involving coronary bypass graft of samish heart without angina pectoris HC PROBNP Routine 04/09/2022 2:08 PM EDT Coronary artery disease involving coronary bypass graft of samish heart without angina pectoris SOB (shortness of breath) BASIC METABOLIC PANEL Routine 04/09/2022 2:08 PM EDT Coronary artery disease involving coronary bypass graft of samish heart without angina pectoris EKG 12-LEAD Routine 04/09/2022 12:48 PM EDT Coronary artery disease involving coronary bypass graft of samish heart without angina pectoris SOB (shortness of breath) Coronary artery disease due to lipid rich plaque Primary hypertension documented in this encounter Results * XR [...] who have questions please contact the health care aid that requested your imaging first. ? Electronically signed by: Paulie Glez DO, [facility] ([phone]), at 04/09/2022 3:28 PM Narrative 04/09/2022 3:28 [...] patients who have questions please contactthe health care aid that requested your imaging first. Pablito Hunt MD IMG DX ORDERABLES * (ABNORMAL) Differential, Automated (04/09/2022 2:08 PM EDT) Neutrophil % 60.8 % [facility] Neutrophil Absolute 6.02 1.70 - 6.10 x10(3)/mc L [facility] Lymph % 22.9 % [facility] Lymphocytes Abs 2.3 0.9 - 3.2 x10(3)/ L [facility] Monocyte % 7.1 % [facility] Monocyte Abs 0.7 0.3 - 0.9 x10(3)/[facility] Eos % 7.6 % [facility] Eosinophils Abs 0.8(H) 0.0 - 0.4 x10(3)/ L [facility] Basophil % 1.0 % [facility] Baso Absolute 0.1 0.0 - 0.1 x10(3)/ L [facility] Immature Gran % 0.60 % [facility] Comment: Immature granulocytes(IG's)percentage and absolute count will include metamyelocytes, myelocytes, and promyelocytes. Blood smears from CBCs yielding IG's will be scanned manually for concordance. If this scan disagrees with the automated IG or if promyelocytes are noted, a manual differential will be performed. Immature Gran Absolute 0.06(H) 0.00 - 0.04 x10(3)/ L [facility] Blood 04/09/2022 2:08 PM EDT 04/09/2022 2:12 PM EDT Narrative Resulting Agency Comment Spec In Lab Pablito Hunt MD HEMATOLOGY ORDERABLE S [facility] [place] [address] * (ABNORMAL) Hemogram (04/09/2022 2:08 PM EDT) Pathologist [facility] White Blood Cell 9.9(H) 4.0 - 9.5 x10(3)/ L [facility] Red Blood Cell 4.46(L) 4.58 - 5.54 x10(6)/[facility] Hemoglobin 13.6(L) 13.7 - 16.5 g/dL [facility] Hematocrit 39.9(L) 40.5 - 48.5 % [facility] Mean Cell Volume 89.5 82.9 - 93.1 [facility] Mean Cell Hemoglobin 30.5 27.5 - 32.1 pg [facility] Mean Cell Hemoglobin Concentration 34.1 32.0 - 35.7 g/dL [facility] Platelet 156 145 - 357 x10(3)/[facility] RDW Standard Deviation 43.7 36.0 - 45.0 [facility] RDW coefficient of variation 13.4 11.4 - 13.8 % [facility] Mean Platelet Volume 10.7 7.6 - 12.9 [facility] NRBC% auto 0.0 % [facility] NRBC Absolute 0.000 0.000 - 0.000 x10(3)/[facility] Blood 04/09/2022 2:08 PM EDT 04/09/2022 2:12 PM EDT Narrative Resulting Agency Comment Spec In Lab Pablito Hunt MD HEMATOLOGY ORDERABLE S [facility] [place] [address] * (ABNORMAL) Basic Metabolic Panel (non-fasting) (04/09/2022 2:08 PM EDT) Pathologist [facility] Glucose 259(H) 65 - 199 mg/dL [facility] Comment:Diabetes: >=200 mg/d L plus symptoms Blood Urea Nitrogen 13 10 - 20 mg/dL [facility] Creatinine 1.09 0.80 - 1.50 mg/dL [facility] Sodium 136 135 - 145 mmol/L [facility] Potassium 4.5 3.5 - 5.0 mmol/L [facility] Comment: Please note: ??Patients with WBC >100,000 may have falsely elevated Potassium levels. ??For accurate Potassium quantification in these patients send serum separator tube (gold top) for subsequent determinations. ??Contact the Clinical Chemistry Laboratory if there are any questions. Chloride 102 98 - 107 mmol/L [facility] Carbon Dioxide 24 22 - 31 mmol/L [facility] Anion Gap 10 5 - 15 mmol/L [facility] Calcium 10.5 8.5 - 10.5 mg/dL [facility] Est Glomerular Filtration Rate 73 >=60 mL/min/1. 73 m?? [facility] Comment: This patient's estimated GFR [...] and symptoms in addition to eGFR. Blood 04/09/2022 2:08 PM EDT 04/09/2022 2:12 PM EDT Narrative Resulting Agency Comment Spec In Lab Pablito Hunt MD CHEMISTRY ORDERABLES [facility] [place] [address] * pro-Brain Natriuretic Peptide (04/09/2022 2:08 PM EDT) NT-proBNP 24 <=124 pg/mL [facility] Blood 04/09/2022 2:08 PM EDT 04/09/2022 2:12 PM EDT Narrative Resulting Agency Comment Spec In Lab Pablito Hunt MD CHEMISTRY ORDERABLES [facility] [place] [address] * EKG 12 Lead (04/09/2022 12:48 PM EDT) Ventricular rate 82 BPM MUSE SYSTEM Atrial Rate 82 BPM MUSE SYSTEM P-R Interval 154 ms MUSE SYSTEM QRS Duration 84 ms MUSE SYSTEM Q-T Interval 366 ms MUSE SYSTEM QTC Calculated (Bezet) 427 ms MUSE SYSTEM Calculated P Bonfield 23 degrees MUSE SYSTEM Calculated R [place] -10 degrees MUSE SYSTEM Calculated T [place] 36 degrees MUSE SYSTEM INTERPRETATION Normal sinus rhythm 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 ) Abnormal ECG When compared with ECG of 25-FEB-2022 06:02, Minimal criteria for Anterior infarct are no longer Present Confirmed by MD Janet, Jerson Sellers ([id number]) on 04/09/2022 1:50:53 PM MUSE SYSTEM 04/09/2022 12:4 8 PM EDT 04/09/2022 1:50 PM EDT Pablito Hunt MD ECG ORDERABLES Performing Organization Address City/[facility]/ZIP Co de Phone Number MUSE SYSTEM documented in this encounter Visit Diagnoses Diagnosis Coronary artery disease involving coronary bypass graft of samish heart without angina pectoris- Primary SOB (shortness of breath) Shortness of breath Coronary artery disease due to lipid rich plaque Primary hypertension Unspecified essential hypertension SOB (shortness of breath) Shortness of breath documented in this encounter Care Teams Hat Sizer Relationship Specialty Start Date End Date Veronica Campbell APRN [address] [place] [address] PCP - General Family Medicine 01/18/22 documented as of this encounter
--- OUTSIDE RECORDS SUMMARY | 2024-05-18 15:17 | XMS_ITS | Encounter Summary ---
Author Organization [facility] Address [facility] [place] [address] Care Team Providers Care Supervisor Joiners Name Role Phone Veronica Campbell APRN Primary Care Provider [phone] Reason for Visit * Consultation (Urgent) - Closed Specialty Diagnoses / Procedures Referred By Jason garcia Referred To Contact Pulmonology Diagnoses Thoracic lymphadenopathy Veronica Campbell APRN [address] [place] [address] [facility] [address] [place] [id number] Referral ID Status Reason Start Date Expiration Date Visits Re quested Visits Authorized [id number] Closed 07/22/2023 07/21/2024 1 1 Encounter Details Date Type Department Care Team (Late st Contact Info) Description 07/27/2023 11:00 AM EDT [place] [address] Paulie Velazquez MD [facility] [place] [address] Mediastinal adenopathy; Multiple lung nodules on CT Social History Tobacco Use Types Packs/Day Years [...] Sign Reading Time Taken Comments Blood Pressure 172/74 07/27/2023 10:47 AM EDT Pulse 70 07/27/2023 10:47 AM EDT Temperature - - Respiratory Rate 18 07/27/2023 10:47 AM EDT Oxygen Saturation 99% 07/27/2023 10:47 AM EDT Inhaled Oxygen Concentration - - Weight 96.3 kg (212 lb 6.4 oz) 07/27/2023 10:47 AM EDT Height 177.8 cm (5' 10) 07/27/2023 10:47 AM EDT Body Mass Index 30.48 07/27/2023 10:47 AM EDT documented in this encounter Progress Notes * Paulie Velazquez MD - 07/27/2023 11:00 AM EDT Images from the original note were not included. INTERVENTIONAL PULMONOLOGY OUTPATIENT CONSULT NOTE SECTION OF PULMONARY & CRITICAL CARE MEDICINE I have been asked to see Conrad Vera in consultation at the request of Veronica Campbell for evaluation and management of mediastinal adenopathy. History of present illness: Conrad Vera is a 68 y.o. male who was in his usual state of health until early February. He was evaluated by his PCP for worsening lower extremity edema and fatigue, as well as vision changes and left sided frontal headaches and hypoxia with O2 saturations in the low 80s during a trip to the [facility], even at 6,000 feet. Evaluation showed a normal echo on 04/05/23, a CBC with anemia and thrombocytopenia, and ESR of 33, CAITLYN 1:80 and RF neg. He also had a negative SPEP. A CT abdomen / pelvis showedsplenomegaly and mildly enlarged yanely hepatic nodes and a chest CT showed mediastinal adenopathy. From a pulmonary standpoint, Mr. Vera is feeling ok, though he continues to have a runny nose and post- nasal drip from his left nares. Otherwise, he is 'dragged down'. He denies any SOB at rest or KAUR after climbing 3 flights of stairs. He has no exertional chest pain/ pressure, cough, fever, chills, sweats or weight loss. Review of systems: ROS otherwise as per HPI and other 12 point ROS is negative. PMH Type II DM HTN GERD Hypothyroid Hyperlipidemia CAD s/p CABG and stents 02/15 He has received the COVID-19 vaccine/boosters and the influenza vaccine Current Outpatient Medications: esomeprazole (NexIUM) [address] capsule, Take 60 mg by mouth every morning (before breakfast). 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 [...] mouth nightly., Disp: 90 tablet, Rfl: 3 Trulicity 1.5 mg/0.5 mL Pen Injector, , Disp: , Rfl: nitroGLYcerin (Nitrostat) 0.4 mg Tablet, Sublingual, Place [...] Tablet(s), PO, Once daily, Disp: , Rfl: Allergies Allergen Reactions Red Blood Cells Antibodies-Difficult to Crossmatch DO NOT REMOVE Please contact the Blood Bank at [phone] for questions. 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 HEENT: EOMI, PERRLA, benign oropharynx without exudate or erythema. Neck: ? Small R cervical node, no submandibular, or supraclavicular LAD. CV: Regular rate and rhythm, normal S1/S2, no m/g/r. Pulm: Nonlabored breathing. Normal, symmetric chest wall expansion. Clear breath sounds bilaterally. No crackles or wheezes. Abd: Soft, nontender to palpation, non-distended with normoactive bowel sounds throughout, ? Palpable spleen tip. Ext: No clubbing or cyanosis, +1-2 LE edema. Neuro: Strength and sensation intact. Accessory clinical data: I reviewed the following imaging studies with Conrad Vera: 06/08/[address]: mediastinal adenopathy including stations 2R, 4R, 4L, 6, 7. There are no pleural or pericardial effusions. There is some patchy ground-glass infiltrate at the lower lobes, as well as a 2.6mm nodule in the peripheral RUL and a calcified granuloma in the RLL. There is splenomegaly as well as adenopathy in the yanely hepatic region. Labs: 07/14/23: WBC 6.45, Hb 12.9, Plt 125 Usax-0-mjxquzggghnbk 4.1 (1.21-2.70), Cr 1.3, Alb 3.2, HCO3 22, AST 17, ALT 24, Assessment & Plan: My assessment at this time is that . Conrad Vera is a 68 y.o. male who was found to have mediastinal and yanely hepatic adenopathy, as well as splenomegaly on evaluation for fatigue. He also hasmild anemia and thrombocytopenia. We discussed the differential diagnosis which leads with lymphoma, though sarcoidosis is also possible. Small cell lung cancer would be lower on the differential. Wediscussed optoins of obtaining a tissue diagnosis including bronchoscopy with EBUS vs mediastinoscopy vs radiographic surveillance and have agreed to proceed with EBUS, which we have scheduled for 07/29. His lower lobe ground glass opacities could be due to volume overload, given the LE edema, and Iwould like to see the results of his echo. I would also like to keep an eye on the lung nodules with a repeat CT in 6 months. All of his and his 's questions were answered and they agree with theplan. Paulie Velazquez MD Chief, Section of Pulmonary and Critical Care Medicine [address] Room [address] [place] [address] Phone [facility] Generic: [phone] [email or web address] Pager #[phone] I independently reviewed prior lab tests, radiology tests and images on file, requested prior records, and reviewed old records and summarized them in the record above. This visit, including time spent reviewing images, labs and notes, coordination of care in addition to face-face time encompassed 60min . documented in this encounter Plan of Treatment Upcoming Encounters Date Type Department Care Team (Late st Contact Info) Description 05/24/2024 2:00 PM EDT Office [place] [address] Bernard Linares MD [facility] [place] [address] 09/07/2024 3:00 PM EST Office Visit Dermatology at [facility] [address] [place] [address] Jeremiah Preston MD [facility] [place] [address] documented as of this encounter Visit Diagnoses Diagnosis Mediastinal adenopathy Enlargement of lymph nodes Multiple lung nodules on CT documented in this encounter Care Teams Supervisor Joiners Relationship Specialty Start Date End Date Veronica Campbell APRN [address] [place] [address] PCP - General Family Medicine 01/18/22 documented as of this encounter
--- OUTSIDE RECORDS SUMMARY | 2024-05-18 15:17 | XMS_ITS | Encounter Summary ---
Author Organization [facility] Address [facility] [place] [address] Care Team Providers Care Wood Heel Flap Inserter Name Role Phone Veronica Campbell APRN Primary Care Provider [phone] Reason for Referral * Consultation (Priority 3) - Closed Specialty Diagnoses / Procedures Referred By Jason garcia Referred To Contact Dermatology Diagnoses Skin exam, screening for cancer FSE Veronica Campbell APRN [address] [place] [address] [facility] [address] [place] [address] Referral ID Status Reason Start Date Expiration Date V isits Requested Visits Authorized [id number] Closed Consult, Test & Treat PCP Updated and/or Approved 03/16/2023 03/15/2024 12 12 Encounter Details Date Type Department Care Team (Latest Contact Info) Description 03/16/2023 Transcribe Orders eDH Incoming Referrals [phone] Veronica Campbell APRN [address] [place] [address] Skin exam, screening for cancer Social History Tobacco Use Types Packs/Day Years [...] 2:00 PM EDT Office [place] [address] Bernard Linares MD [facility] [place] [address] 09/07/2024 3:00 PM EST Office Visit Dermatology at [facility] [address] [place] [address] Jeremiah Preston MD [facility] [address] [place] [address] Scheduled Referrals Name Type Priority Associated Diagnoses Order Schedule Referral to Dermatology Outpatient Referral Routine Skin exam, screening for cancer Ordered: 03/16/2023 documented as of this encounter Visit Diagnoses Diagnosis Skin exam, screening for cancer Screening for malignant neoplasm of the skin documented in this encounter Care Teams Wood Heel Flap Inserter Relationship Specialty Start Date End Date Veronica Campbell APRN [address] [place] [address] PCP - General Family Medicine 01/18/22 documented as of this encounter
--- OUTSIDE RECORDS SUMMARY | 2024-05-18 15:17 | XMS_ITS | Encounter Summary ---
Author Organization [facility] [place] [address] Care Team Providers Care Ship Ceiler Name Role Phone Veronica Campbell CHRISTEL Primary Care Provider [phone] Reason for Referral * Consultation (Routine) - Closed Specialty Diagnoses / Procedures Referred By Contact Referred To Contact Cardiac Rehabilitation Diagnoses S/P coronary artery stent placement Pablito Hunt MD [facility] [place] [address] Cardiac Rehab, [address] [place] [address] Referral ID Status Reason Start Date Expiration Date V isits Requested Visits Authorized [id number] Closed Consult, Test & Treat 04/10/2022 10/07/2022 36 36 Encounter Details Date Type Department Care Team (Late st Contact Info) Description 04/10/2022 Orders [place] [address] Vane Villalta RN S/P coronary artery stent placement Social History Tobacco Use Types Packs/Day Years [...] as of this encounter Progress Notes * Vane Villalta RN - 04/10/2022 9:[address] Hunt, patient has changed his mind and would like a referral for cardiac rehab at [facility]. Rferral sent out today. documented in this encounter Plan of Treatment Upcoming Encounters Date Type Department Care Team (Late st Contact Info) Description 05/24/2024 2:00 PM EDT Office [place] [address] Bernard Linares MD [facility] [place] [address] 09/07/2024 3:00 PM EST Office Visit Dermatology at [place] [address] [place] [address] Jeremiah Preston MD [facility] [address] [place] [address] Scheduled Referrals Name Type Priority Associated Diagnoses Orde r Schedule Referral to Cardiac Rehab Outpatient Referral Routine S/P coronary artery stent placement Ordered: 04/10/2022 documented as of this encounter Visit Diagnoses Diagnosis S/P coronary artery stent placement Postsurgical percutaneous transluminal coronary angioplasty status documented in this encounter Care Teams Ship Ceiler Relationship Specialty Start Date End Date Veronica Campbell APRN [address] [place] [address] PCP - General Family Medicine 01/18/22 documented as of this encounter
--- OUTSIDE RECORDS SUMMARY | 2024-05-18 15:17 | XMS_ITS | Encounter Summary ---
Author Organization [facility] [place] [address] Care Team Providers Care Process Stripper Name Role Phone Veronica Campbell CHRISTEL Primary Care Provider [phone] Encounter Details Date Type Department Care Team (Latest Contact Info) Description 06/02/2023 Travel Social History Tobacco Use Types Packs/Day [...] 2:00 PM EDT Office [place] [address] Bernard Linares MD [facility] [place] [address] 09/07/2024 3:00 PM EST Office Visit Dermatology at [facility] [address] [place] [address] Jeremiah Preston MD [facility] [address] [place] [address] documented as of this encounter Visit Diagnoses Not on filedocumented in this encounter Care Teams Process Stripper Relationship Specialty Start Date End Date Veronica Campbell APRN [address] [place] [address] PCP - General Family Medicine 01/18/22 documented as of this encounter
--- OUTSIDE RECORDS SUMMARY | 2024-05-18 15:17 | XMS_ITS | Encounter Summary ---
Author Organization [facility] [place] [address] Care Team Providers Care Accounts Payable Professional Name Role Phone Adrian Veronica CHRISTEL Primary Care Provider [phone] Encounter Details Date Type Department Care Team (Late st Contact Info) Description 04/22/2022 Telephone Cardiology at [address] [address] Rush-Kelly Hermosillo, RN Social History Tobacco Use Types Packs/Day [...] encounter Miscellaneous Notes * Telephone Encounter - Kelly Beverly, RN - 04/22/2022 3:09 PM EDT Pt's called clinic this afternoon and LVM on team nurse line wondering if the Vascepa prescription had been approved or not as they had not heard. Additionally the pt's PCP had suggested that the pt might be able to take an [place] 3 acid ethyl mena generic form of Lavaza for much cheaper and the pt's is wondering if that would be a comparable solution to the Vascepa? Spoke with [facility] pharmacy [facility] who states that the pt's insurance is not contracted with [facility] and therefore the prescription can not be covered at [facility] but only through [facility]. She did apologize that a call was not made to the pt from the pharmacy about thisinformation. The generic form of Lavaza was still going to cost around $200 again because of non contractual insurance. [facility] did state that if the pt's wished to call them back and have the original prescription transferred to [facility] they would be happy to do this for the pt. Will forward this message to Dr. Hunt for his consideration and response and pt and will be contacted back with a response. documented in this encounter Plan of Treatment Upcoming Encounters Date Type Department Care Team (Late st Contact Info) Description 05/24/2024 2:00 PM EDT Office [place] [address] Bernard Linares MD [facility] [place] [address] 09/07/2024 3:00 PM EST Office Visit Dermatology at [address] [address] Jeremiah Preston MD [facility] [place] [address] documented as of this encounter Visit Diagnoses Not on filedocumented in this encounter Care Teams Accounts Payable Professional Relationship Specialty Start Date End Date Veronica Campbell APRN [address] [place] [address] PCP - General Family Medicine 01/18/22 documented as of this encounter
--- OUTSIDE RECORDS SUMMARY | 2024-05-18 15:17 | XMS_ITS | Encounter Summary ---
Author Organization [facility] [place] [address] Care Team Providers Care Research Professional Name Role Phone Veronica Campbell CHRISTEL Primary Care Provider [phone] Encounter Details Date Type Department Care Team (Latest Contact Info) Description 07/28/2022 Travel Social History Tobacco Use Types Packs/Day [...] 2:00 PM EDT Office [place] [address] Bernard Linares MD [facility] [place] [address] 09/07/2024 3:00 PM EST Office Visit Dermatology at [facility] [address] [place] [address] Jeremiah Preston MD [facility] [address] [place] [address] documented as of this encounter Visit Diagnoses Not on filedocumented in this encounter Care Teams Research Professional Relationship Specialty Start Date End Date Veronica Campbell APRN [address] [place] [address] PCP - General Family Medicine 01/18/22 documented as of this encounter
--- OUTSIDE RECORDS SUMMARY | 2024-05-18 15:17 | XMS_ITS | Encounter Summary ---
Author Organization [facility] [place] [address] Care Team Providers Care Executive Admin Name Role Phone Veronica Campbell APRN Primary Care Provider [phone] Reason for Visit * Consultation (Routine) - Closed Specialty Diagnoses / Procedures Referred By Jason garcia Referred To Contact Endocrinology Diagnoses Type 2 diabetes mellitus without complication, unspecified whether alf insulin use Veronica Campbell APRN [address] [place] [address] [facility] [address] [place] [phone] Referral ID Status Reason Start Date Expiration Date V isits Requested Visits Authorized [id number] Closed Consult, Test & Treat PCP Updated and/or Approved 05/08/2022 05/08/2023 6 6 Encounter Details Date Type Department Care Team (Latest Contact Info) Description 07/29/2022 10:00 AM EDT TH Visit (TeleHealth) [place] [address] Benji Stringer, [facility] [place] [address] Type 2 diabetes mellitus with retinopathy, without long-term current use of insulin, macular edema presence unspecified, unspecified laterality, unspecified retinopathy severity Social History Tobacco Use Types Packs/Day Years [...] on file documented as of this encounter Patient Instructions * Patient Instructions* Benji Stringer DO - 07/29/2022 10:00 AM EDT 1. Continue metformin 1000mg bid 2. Continue Trulicity 1.5mg weekly 3. Patient counseled on diet and exercise changes and encouraged to continue the progress he has already made 4. Blood glucose monitoring - given severe CAD and patient significant discomfort with fingerstick,I do think patient would benefit from CGM. Will attempt to send this for him / speak with insuranceabout it. 5. Diet - low fat/low carb diet 6. Exercise - weight-bearing exercise 30 min/day, as tolerated 7. Will repeat A1c, check microalbumin 8. If A1c not at goal with lifestyle changes, will add glipizide 2.5mg ER at first, slowly titrate up to goal documented in this encounter Progress Notes * Benji Stringer DO - 07/29/2022 10:00 AM EDT Endocrine Outpatient Visit Patient verbally consents to this telehealth visit and understands that this visit may be billed, similar to a clinic office visit. I provided care to the patient today via VDO call. The total time associated with this visit, chartreview, documentation, and coordination of care was 60 minutes. Date of Consultation: 07/29/2022 Consult Requested by: PCP Reason for Consultation: Conrad Vera is a 67 y.o. male with PMH significant for T2DM with retinopathy, CAD s/p CABG and PCI (most recently patient states he had 5 stents placed this past summer) is referred to endocrine clinic for further management of T2DM. Diabetes History: Diagnosed with T2DM at the age of 48s. Initially he was started on a regimen of metformin, for which the dose was eventually increased. Patient at different times in his diabetes care was on glipizide (which was stopped due to hypoglycemia), jardiance (stopped due to adverse skin reactions), sitagliptin (no longer taking due to cost), and currently is on a regimen of metformin 1000mg bid and Trulicity 1.5mg weekly. Patient does have significant bloating and abdominal discomfort ever since starting the Trulicity, however he states that his symptoms are tolerable and preferable to starting insulin therapy. He has previously had decent control of his diabetes (A1c ~ 7.5), but more recently A1cwas 9%. He attributes this worsening of his A1c due to lifestyle factors (decreased exercise, worsediet), which has changed since his most recent stent placement. He states over the past 4 weeks he has been working to increase his exercise and decrease his carbohydrate intake. He states he has lost about 7- 8lbs over this period of time. He checks his BG typically once in the morning before breakfast (typically 140-160), does not check more frequently due to pain with finger sticks and patient forgets. Diabetes provider: PCP Current home regimen: Trulicity 1.5 weekly, metformin 1000 bid BG Monitoring: checks once in the morning before breakfast Most recent HgA1C on 04/14/22 was 9% Typical Diet: 3 meals and 1-2 snacks a day Breakfast- two pieces of toast (wheat bread) and peanut butter. Coffee. Garland Juice Lunch- skips Supper- nachos, corn chips, cheese, salsa, lettuce, meat. Diet iced tea (arnold wells) Snack: orange, apple, ice cream sandwich, chips Typical exercise regimen: sedentary more recently Trouble with hypoglycemia: no Hypoglycemia unawareness: no Family h/o DM: yes Injection site: n/a Recent admission with DKA: n/a Diabetes Complications Status: Eyes: follows with ophthalmology, jerman [facility], repeat visit this month Kidneys: Stage II CKD Feet: mild peripheral neuropathy per patient Cardiac: CAD s/p CABG and PCI Prevention: last eye exam: 2021 last microalbumin : n/a last Cr: 1.09 (04/09/22) last lipid panel: 28 (02/25/22) regular dispatch specialist: no special shoes: no ACEi/ARB: yes ASA: yes Statin: yes ROS: 12 Point ROS negative except for what has been documented above Allergy: Allergies Allergen Reactions ??? Red Blood Cells Antibodies-Difficult to Crossmatch DO NOT REMOVE Please contact the Blood Bank at [phone] for questions. ??? Amoxicillin-Pot Clavulanate CIS - [...] shutdown, CIS - causes GI shutdown Social history: Social History Tobacco Use ??? Smoking status: Former Smoker Packs/day: 1.50 Years: 15.00 Pack years: 22.50 Quit date: 09/02/1985 Years since quittin.9 ??? Smokeless tobacco: Never Used Vaping Use ??? Vaping Use: Never used Substance Use Topics ??? Alcohol use: Yes Alcohol/week: 4.0 standard drinks Types: 2 Glasses of wine, 2 Cans of beer per week Comment: rare ??? Drug use: No Family history: No family history on file. Vitals There were no vitals taken for this visit. Physical Exam: Exam limited due to televideo. Gen: NAD, talking in clear sentences. HEENT: no hoarseness in voice, EOMI Lungs:speaking in full sentences, not in respiratory distress Psych: Normal mood and affect Assessment: Mr. Vera is a 67 y.o. years old male with PMH significant for DM (Last A1C of 9%) and CAD is herefor further management of type 2 DM. # Poorly controlled Type 2 DM with CAD, Nephropathy, and Retinopathy Discussed with patient different options for therapy at this point. I spoke with him at length about continued use of trulicity, and different options that we could try if he no longer wanted to be on the medication (including possibly insulin). Patient stated that he would rather tolerate the bloating he gets from the Trulicity than start daily insulin at this point. I informed him that there were medications that we could add to his current regimen to help get his A1c down to a more appropriate level, especially given his CAD. Ideally given CAD patient should benefit from SGLT2, however patient had adverse reaction to the medication in the past. Plan: 1. Continue metformin 1000mg bid 2. Continue Trulicity 1.5mg weekly 3. Patient counseled on diet and exercise changes and encouraged to continue the progress he has already made 4. Blood glucose monitoring - given severe CAD and patient significant discomfort with fingerstick,I do think patient would benefit from CGM. Will attempt to send this for him / speak with insuranceabout it. 5. Diet - low fat/low carb diet 6. Exercise - weight-bearing exercise 30 min/day, as tolerated 7. Will repeat A1c, check microalbumin 8. If A1c not at goal with lifestyle changes, will add glipizide 2.5mg ER at first, slowly titrate up to goal 9. Patients typically are not on both DPP-4 and GLP-1, he should not be on both in the future We have reviewed our plan outlined as above with the patient and patient verbalized understanding and is agreeable with this management. All questions were answered and most of the time was spent on counseling about pertinent medical conditions, medications adjustment including pros and cons of starting medication if indicated, the diagnostic and therapeutic decisions, and coordination of care. Thank you for allowing us to provide care for this patient. Patsy Stringer PGY4, Endocrinology Fellow Pager: [phone] * Sana Hankins MD - 07/29/2022 10:00 AM EDT Patient seen and evaluated by me and Dr. Stringer. I agree with his above assessment and plan. Sana Hankins MD Professor of Endocrinology documented in this encounter Plan of Treatment Upcoming Encounters Date Type Department Care Team (Late st Contact Info) Description 05/24/2024 2:00 PM EDT Office [place] [address] Bernard Linares MD [facility] [place] [address] 09/07/2024 3:00 PM EST Office Visit Dermatology at [facility] [address] [place] [address] Jeremiah Preston MD [facility] [place] [address] documented as of this encounter Visit Diagnoses Diagnosis Type 2 diabetes mellitus with retinopathy, without long-term current use of insulin, macular edema presence unspecified, unspecified laterality, unspecified retinopathy severity documented in this encounter Care Teams Executive Admin Relationship Specialty Start Date End Date Veronica Campbell APRN [address] [place] [address] PCP - General Family Medicine 01/18/22 documented as of this encounter
--- OUTSIDE RECORDS SUMMARY | 2024-05-18 15:18 | XMS_ITS | Encounter Summary ---
Author Organization [facility] [place] [address] Care Team Providers Care Supervisor Maintenance And Custodians Name Role Phone Gianluca Nassar MD Primary Care Provider Encounter Details Date Type Department Care Team (Late st Contact Info) Description 10/29/2010 12:30 PM EST Procedure [place] [address] Roula Saez MD [facility] [place] [address] Social History Tobacco Use Types Packs/Day Years [...] 2:00 PM EDT Office [place] [address] Bernard Linares MD [facility] [place] [address] 09/07/2024 3:00 PM EST Office Visit Dermatology at [facility] [address] [place] [address] Jeremiah Preston MD [facility] [address] [place] [address] documented as of this encounter Visit Diagnoses Not on filedocumented in this encounter Care Teams Supervisor Maintenance And Custodians Relationship Specialty Start Date End Date Gianluca Nassar MD [address] [place] [address] PCP - General 08/19/10 07/18/15 documented as of this encounter
--- OUTSIDE RECORDS SUMMARY | 2024-05-18 15:18 | XMS_ITS | Encounter Summary ---
Author Organization [facility] [place] [address] Care Team Providers Care Roof Fixer Name Role Phone Veronica Campbell CHRISTEL Primary Care Provider [phone] Encounter Details Date Type Department Care Team (Late st Contact Info) Description 02/16/2022 Orders [place] [address] Diana Altamirano, RN Encounter for preprocedure screening laboratory testing for COVID-19 (Primary Dx) Social History Tobacco Use Types Packs/Day Years Used Date Smoking Tobacco: Former Cigarettes 1.5 15 1 11/03/1969 - 09/02/1985 Smokeless Tobacco: Never Alcohol Use Standard Drinks/Week Comments Yes 4 (1 standard drink = 0.6 oz pur e alcohol) Sex and Gender Information Value Date Recorded Sex Assigned at Not on file Gender Identity Not on file Sexual Orientation Not on file documented as of this encounter Plan of Treatment Upcoming Encounters Date Type Department Care Team (Late st Contact Info) Description 05/24/2024 2:00 PM EDT Office [place] [address] Bernard Linares MD [facility] [place] [address] 09/07/2024 3:00 PM EST Office Visit Dermatology at [facility] [address] [place] [address] Jeremiah Preston MD [facility] [place] [address] documented as of this encounter Results * COVID-19 PCR (02/24/2022 4:54 PM EDT) SARS-CoV-2 RNA Not Detected Not Detected [facility] Comment: This result should be [...] diagnosis of COVID-19 is performed using the Neuravi m SARS-CoV-2 Assay as authorized by the FDA Emergency Use Authorization (EUA). This EUA assay is intended for In-vitro Diagnostic (IVD) use with respiratory specimens such as nasopharyngeal swabs collected from individuals during the acute phase of infection. This assay is performed based on the instructions for use provided by [employer] and additional guidance provided by CDC and FDA. Testing is performed in the [facility] within the Department of Pathology and Laboratory Medicine at [facility], certified under the Clinical Laboratory Improvement Amendments [...] fact sheets at the following FDA website: https://www.fda.gov/medical-devices/lnyagdxiclu-vbyyoxk-9475-ygqdc-26-egjhloaht- use-a doomplbhfejon-lckwkii-jrighaq/zmmcu-xrvknqcmfvo-qewq SARS-CoV-2 RNA Source LIGHT RAIL TRANSIT OPERATOR Swab [facility] Nasopharyngeal Swab 02/25/20 4:54 PM EDT 02/24/2022 9:01 PM EDT Comment:Symptoms->Asymptomat ic Narrative Resulting Agency Comment Spec In Lab Pablito Hunt MD MOLECULAR ORDERABLES [facility] [place] [address] documented in this encounter Visit Diagnoses Diagnosis Encounter for preprocedure screening laboratory testing for COVID-19- Primary documented in this encounter Care Teams Roof Fixer Relationship Specialty Start Date End Date Veronica Campbell APRN [address] [place] [address] PCP - General Family Medicine 01/18/22 documented as of this encounter
--- OUTSIDE RECORDS SUMMARY | 2024-05-18 15:18 | XMS_ITS | Encounter Summary ---
Author Organization Formerly [facility], [facility] Address [facility] [place] [address] Care Team Providers Care Abstract Maker Name Role Phone Cipriano Yuan MD Primary Care Provider [phone] Encounter Details Date Type Department Care Team (Latest Contact Info) Description 09/02/2015 7:45 AM EST - 09/02/2015 10:20 AM EST Hospital Encounter [place] [address] Roula Saez MD [facility] [place] [address] Discharge Disposition: Home Social History Tobacco Use Types Packs/Day Years Used Date Smoking Tobacco: Former Cigarettes 1.5 15 1 11/03/1969 - 09/02/1985 Alcohol Use Standard Drinks/Week Comments Yes 4 (1 standard drink = 0.6 oz pur e alcohol) Sex and Gender Information Value Date Recorded Sex Assigned at Not on file Gender Identity Not on file Sexual Orientation Not on file documented as of this encounter Last Filed Vital Signs Vital Sign Reading Time Taken Comments Blood Pressure 123/84 09/02/2015 9:22 AM EST Pulse 67 09/02/2015 9:22 AM EST Temperature - - Respiratory Rate 16 09/02/2015 9:22 AM EST Oxygen Saturation 100% 09/02/2015 9:22 AM EST Inhaled Oxygen Concentration - - Weight - - Height - - Body Mass Index - - documented in this encounter Discharge Instructions * Discharge Instructions* Meli Shaver RN - 09/02/2015 9:24 AM EST Colonoscopy What to expect after the procedure You may feel a little more gassy or bloated than usual. This is normal. You should expect the return of normal bowel function in the 2 to 3 days. Activity Because of the sedation that you received your judgement and reaction time are effected ?? Go home and rest quietly for the remainder of the day. You may resume your normal activities tomorrow. ?? Change from one position to the next slowly. You may lose your balance unexpectedly ?? Be careful on stairs, as you may be unsteady on your feet FOR THE NEXT 24 HRS ?? DO NOT DRIVE OR OPERATE ANY MACHINERY ?? DO NOT DRINK ALCOHOLIC BEVERAGES ?? DO NOT SIGN LEGAL DOCUMENTS ?? If you are a smoker: DO NOT SMOKE WHILE YOU ARE ALONE Diet ?? Start by eating small portions of foods that ordinarily will not upset your stomach . Avoid gas producing foods for the next few days ?? Be gentle with what you choose to start with ?? Drink plenty of fluids ( unless your doctor has told you not to). IV SITE-- slight redness, or tenderness is normal. You can use warm compresses if you become concerned. If the tenderness +/or redness increases or foul drainage and a red streak occurs, please contact your PCP immediately When shoud you call for help? Call 911 anytime you think you may need emergency care. For example If you pass out ( loss of consciousness) If you pass maroon or bloody stools If you have severe belly pain Call your doctor now or seek immediate medical care If your stools are black and tarlike If your stools have streaks of blood, but you did not have a biopsy or any polyps removed If you have belly pain, or your belly is swollen and firm If you vomit If you have a fever If you are very dizzy Watch closely for changes in your health, and be sure to contact your doctor if you have any problems Your doctor will let you know when you will need your next colonoscopy. The results of your test and your risk for colorectal cancer will help your doctor decide how often you need to be checked. Wednesday-Wednesday Same Day Endo [phone] 7a-8p Otherwise contact [phone] and ask to speak to the conference producer entry level receptionist Follow up care is a lopez part of your treatment and safety. Be sure to make and go to all appointments, and call your doctor if you are having problems. Discharge instructions reviewed with patient who expresses understanding documented in this encounter Medications at Time of Discharge Medication Sig Dispensed Refills Start Date End Date allopurinol (ZYLOPRIM) 300 mg tablet Take 300 mg by mouth every morning. 12/12/2010 losartan (Cozaar) 100 mg tablet Take 100 mg by mouth every morning. 12/12/2010 metFORMIN (Glucophage) 1,000 mg tablet Take 1,000 mg by mouth 2 times daily (with meals). 12/12/2010 CIS Free Text Med - Aspirin 81 MG = 1 Tablet(s), PO, QAM 12/12/2010 02/20/2022 atorvastatin (LIPITOR) 10 mg tablet 10 MG = 1 Tablet(s), PO, QHS 12/12/2010 02/25/2022 documented as of this encounter H&P Notes * Roula Saez MD - 09/02/2015 8:28 AM EST Gastroenterology and Hepatology Pre-Procedure History and Physical Exam Procedure: Colonoscopy: Indication: recurrent diverticulitis Patient Active Problem List Diagnosis Code ??? CAD (coronary artery disease) I25.10 ??? Hypertension I10 ??? Gout M10.9 ??? Peptic disease K31.9 ??? Diabetes mellitus E11.9 ??? Kidney stones N20.0 ??? Obesity E66.9 ??? Memory loss R41.3 ??? Coronary artery disease involving coronary bypass graft I25.810 ??? Diverticular disease K57.90 EXAM: HEENT: Airway examined, oropharynx clear Mallampati Score: II (soft palate, uvula, fauces visible) LUNGS: Clear to auscultation HEART: Regular rate and rhythm, normal S1, S2 ABDOMEN: Normal bowel sounds, soft, non tender, non distended, A/P Proceed with the planned endoscopic procedure. ASA 2 - Patient with mild systemic disease with no functional limitations Sedation Plan: anesthesia Risks and benefits of the procedure explained to the patient. Consent signed. documented in this encounter Plan of Treatment Upcoming Encounters Date Type Department Care Team (Late st Contact Info) Description 05/24/2024 2:00 PM EDT Office [place] [address] Bernard Linares MD [facility] [place] [address] 09/07/2024 3:00 PM EST Office Visit Dermatology at [facility] [address] [place] [address] Jeremiah Preston MD [facility] [address] [place] [address] documented as of this encounter Procedures Procedure Name Priority Date/Time Associated Diagnosis Comments COLONOSCOPY, DIAGNOSTIC (WRVU 3.26) 09/02/2015 8:44 AM EST recurrent diverticulitis COLONOSCOPY Routine 09/02/2015 8:28 AM EST documented in this encounter Results * COLONOSCOPY (09/02/2015 8:28 AM EST) COLONOSCOPY [facility] Endoscopy Patient Name: Conrad Vera ? Procedure Date: 09/02/2015 8:28 AM ? Date of : 1955 ? Age: 60 ? Order #: [id number] ? Procedure: ? Colonoscopy Indications: ? High risk colon cancer surveillance: ? Personal history of colonic polyps ? Also recurrent diverticulitis Providers: ? Roula Saez MD, Nicolle Bruner RN, ? Wendy Starks, Sheet Metal Insulator Referring : ?Cipriano Yuan MD, Yovanny Renteria ? MD [...] AM EST Cipriano Yuan MD [facility] Performing Organization Address City/State/[facility] Co de Phone Number [employer] documented in this encounter Visit Diagnoses Not on filedocumented in this encounter Active and Recently Administered Medications Times are shown in EST. Continuous Medication Order 08/31/2015 09/01/2015 09/02/2015 lactated ringers infusion (CANCELED) 100 mL/hr, Intravenous, CONTINUOUS, Starting on Wed09/02/15 at 0830, Until Wed09/02/15 at 1019, Endoscopy (Day of Procedure) 0830 (Due)0841 (New Bag - Provider: Kelly Graff CRNA) documented in this encounter Care Teams Abstract Maker Relationship Specialty Start Date End Date Cipriano Yuan MD [address] [place] [address] PCP - General Family Medicine 07/19/15 01/17/22 documented as of this encounter
--- OUTSIDE RECORDS SUMMARY | 2024-05-18 15:18 | XMS_ITS | Encounter Summary ---
Author Organization [facility] Address [facility] [place] [address] Care Team Providers Care Pollution Control Chemist Name Role Phone Cipriano Yuan MD Primary Care Provider [phone] Encounter Details Date Type Department Care Team (Late st Contact Info) Description 09/02/2015 8:41 AM EST Anesthesia Event [place] [address] Ekaterina, Jeremiah Meraz MD [facility] [place] [address] Anesthesia Record Procedure Summary Procedure Name Responsible Anesthesiologist Anesthesia Start Time Anesthesia Stop Time COLONOSCOPY, DIAGNOSTIC (WRVU 3.26) (Trunk) Sites, Jeremiah Meraz MD 09/02/15 0841 09/02/15 0917 Events Date Time Event Comment 09/02/2015 0609 0841 AN Verify 0841 Start 0842 An Start Data 0916 Procedure Stop 0916 an stop data 0917 Recovery or ICU Handoff Cherelle ent care was transferred to the destination unit staff after review of the patient's medical history, current anesthetic/surgical status and plan, according to the Provider Handoff Checklist. 0917 Stop Meds Name Total Propofol 50 mg Propofol INF 483.6 mg lactated ringers infusion 0 mL * Agents Name O2 * Blood No blood administrations on file. Lines, Drains, and Airways No LDAs on file. documented in this encounter Social History Tobacco [...] OR Notes * Anesthesia Postprocedure Evaluation - Jeremiah Tobar MD - 09/02/2015 9:43 AM EST [facility] Anesthesiology Post-procedure Note Patient: Conrad Vera Procedure Summary Date Anesthesia Start Anesthesia Stop Room / Location 09/02/15 0841 0917 [facility] ENDO 6 / [facility] ENDOSCOPY Procedure Diagnosis Surgeon Responsible Provider COLONOSCOPY, DIAGNOSTIC (N/A Trunk) No diagnosis on file. Roula Saez MD Sites, Brian D, MD (recurrent diverticulitis) Last (1hr) Vitals: BP 123/84 mmHg (09/02/15921) Temp Pulse 67 (09/02/15921) Resp 16 (09/02/15921) SpO2 100 % (09/02/15921) Patient Location: PACU/[facility] Level of Consciousness: Lethargic Pain Management: Pain Being Addressed PONV: None Cardiovascular Status: At Baseline Respiratory Status: At Baseline Postoperative Fluid Status: Intravascular EUvolemia Possible Anesthetic Complications: NONE apparent at time of evaluation Final Primary Anesthesia Type: MAC (The anesthetic type performed was the same as planned.) Comments: * Anesthesia Preprocedure Evaluation - Jeremiah Tobar MD - 09/02/2015 6:08 AM EST Pre-Anesthesia Evaluation for: Conrad Vera a 60 y.o. male. Procedure(s): COLONOSCOPY, DIAGNOSTIC Patient Active Problem List Diagnosis ??? CAD (coronary artery disease) ??? Hypertension ??? Gout ??? Peptic disease ??? Diabetes mellitus ??? Kidney stones ??? Obesity ??? Memory loss ??? Coronary artery disease involving coronary bypass graft ??? Diverticular disease No past medical history on file. No past surgical history on file. History Substance Use Topics ??? Smoking status: Never Smoker ??? Smokeless tobacco: Not on file ??? Alcohol Use: Not on file History Drug Use Not on file Allergies Allergen Reactions ??? Amoxicillin-Pot Clavulanate CIS - Nausea/Vomiting, CIS [...] GI shutdown, CIS - causes GI shutdown ? ? Opioids-Meperidine & Related CIS - causes GI shutdown, CIS - causes GI shutdown, CIS - causes GI shutdown, CIS - causes GI shutdown, CIS - causes GI shutdown ? ? Opioids-Methadone & Related CIS - causes GI shutdown, CIS - causes GI shutdown, CIS - causes GI shutdown, CIS - causes GI shutdown, CIS - causes GI shutdown Medications: MAR and/or home medications have been reviewed. Physical Exam: There were no vitals filed for this visit. There is no weight on file to calculate BMI. Airway Assessment: Mallampati: III TM distance: >3 FB Neck ROM: full Cardiovascular Assessment: Rhythm: regular Pulmonary Assessment: breath sounds clear to auscultation Dental Assessment: Misc Assessment: IV access: Peripheral line Anesthesia Plan: ASA 3 MAC, with a(n) intravenous induction I have seen and examined the patient. I have reviewed the medical record. I have noted his history of CAD, CABG, DM, and gout. He is being managed for diverticular disease and is having a follow up colonoscopy. Region - Other Informed Consent: Anesthetic plan and risks discussed with patient. Plan discussed with HUMAN RESOURCES ADVISOR. [facility] Staff Note documented in this encounter Plan of Treatment Upcoming Encounters Date Type Department Care Team (Late st Contact Info) Description 05/24/2024 2:00 PM EDT Office Visit [place] [address] Bernard Linares MD [facility] [place] [address] 09/07/2024 3:00 PM EST Office Visit Dermatology at [facility] [address] [place] [address] Jeremiah Preston MD [facility] [place] [address] documented as of this encounter Visit Diagnoses Not on filedocumented in this encounter Administered Medications Inactive Administered Medications - up to 3 most recent administrations Medication Order MAR Action Action Date Dose Rate Site lactated ringers infusion 100 mL/hr, Intravenous, CONTINUOUS, Starting on Wed09/02/15 at 0830, Until Wed09/02/15 at 1019, Endoscopy (Day of Procedure) New Bag 09/02/2015 8:41 AM EST propofol (DIPRIVAN) 10 mg/mL bolus injection (Anesthesia) PRN, Starting on Wed09/02/15 at 0845, Until Wed09/02/15 at 0917, Anesthesia Intra-op Given 09/02/2015 8:45 AM EST 50 mg propofol (DIPRIVAN) infusion CONTINUOUS PRN, Starting on Wed09/02/15 at 0845, Until Wed09/02/15 at 0917, Anesthesia Intra-op, Routine New Bag 09/02/2015 8:45 AM EST 150 mcg/kg/min 93.6 mL/hr documented in this encounter Care Teams Pollution Control Chemist Relationship Specialty Start Date End Date Cipriano Yuan MD [address] [place] [address] PCP - General Family Medicine 07/19/15 01/17/22 documented as of this encounter
--- OUTSIDE RECORDS SUMMARY | 2024-05-18 15:18 | XMS_ITS | Encounter Summary ---
Author Organization [facility] [place] [address] Care Team Providers Care Burlesque Dancer Name Role Phone Gianluca Nassar MD Primary Care Provider Encounter Details Date Type Department Care Team (Latest Contact Info) Description 10/24/2010 2:19 PM EST - 10/24/2010 11:59 PM EST Hospital Encounter XRay at [address] [place] [address] Gianluca Nassar MD [address] [place], [place] [id number] Discharge Disposition: Home Social History Tobacco Use [...] 2:00 PM EDT Office Visit Otolaryngology at [facility] [place] [address] Bernard Linares MD [facility] [place] [address] 09/07/2024 3:00 PM EST Office Visit Dermatology at [facility] [address] [place] [phone] Jeremiah Preston MD [facility] [address] [place] [address] documented as of this encounter Visit Diagnoses Not on filedocumented in this encounter Care Teams Burlesque Dancer Relationship Specialty Start Date End Date Gianluca Nassar MD [address] [place] [address] PCP - General 08/19/10 07/18/15 documented as of this encounter
--- OUTSIDE RECORDS SUMMARY | 2024-05-18 15:18 | XMS_ITS | Encounter Summary ---
Author Organization [facility] [place] [address] Care Team Providers Care Information Technology Assistant Name Role Phone iGanluca Nassar MD Primary Care Provider Encounter Details Date Type Department Care Team (Latest Contact Info) Description 10/24/2010 3:29 PM EST - 10/24/2010 11:59 PM EST Hospital Encounter XRay at [address] [place] [phone] CLINIC, Gianluca Cartwright MD [address] [place], [place] [phone] Discharge Disposition: Home Social History Tobacco Use [...] 2:00 PM EDT Office Visit Otolaryngology at [facility] [place] [address] Bernard Linares MD [facility] OTOLARYNGOLOGY [place], [place] [address] 09/07/2024 3:00 PM EST Office Visit Dermatology at [facility] [address] [place] [address] Jeremiah Preston MD [facility] [place] [address] documented as of this encounter Visit Diagnoses Not on filedocumented in this encounter Care Teams Information Technology Assistant Relationship Specialty Start Date End Date Gianluca Nassar MD [address] [place] [address] PCP - General 08/19/10 07/18/15 documented as of this encounter
--- OUTSIDE RECORDS SUMMARY | 2024-05-18 15:18 | XMS_ITS | Encounter Summary ---
Author Organization [facility] [place] [address] Care Team Providers Care Revenue Enforcement Agent Name Role Phone Veronica Campbell CHRISTEL Primary Care Provider [phone] Encounter Details Date Type Department Care Team (Late st Contact Info) Description 03/16/2007 Orders [place] [address] Roula Saez MD [facility] [place] [address] Social History Tobacco Use Types Packs/Day Years [...] PM EDT Office Visit [place] [address] Bernard Linares MD [facility] [place] [address] 09/07/2024 3:00 PM EST Office Visit Dermatology at [facility] [address] [place] [address] Jeremiah Preston MD [facility] [place] [address] documented as of this encounter Procedures Procedure Name Priority Date/Time Associated Diagnosis Comments SURGICAL PATHOLOGY REPORT Routine 03/16/2007 6:51 PM EDT documented in this encounter Results * Surgical Pathology Report (03/16/2007 6:51 PM EDT) Surgical Pathology Report [id number] ? Location: The signing pathologist has (i) examined the relevant preparation(s) for the specimen(s) and (ii) rendered or confirmed the diagnosis(es). . ?Pathology Surgical Pathology Final Report Clinical Information Specimen Submitted: A - Biopsies, ileum. Clinical History: Pt with recurrent diverticulitis; incidental finding of tiny ileal ulcers. Clinical Diagnosis: Diverticulitis flares times two this year. Gross Description Labeled/Fixativ e: ? Ileum, formalin. Qty/Size/Weight : ?Two, averaging 0.5 x 0.3 x 0.3 cm. Tissue Description: ?? Soft, titus tissues. Sections/Proces sing: ??(T1) ??isabelle/SNS Microscopic Description Slides reviewed, microscopic description not recorded. Diagnosis Surg Path Resident Review Ileum, endoscopic biopsy; ?? Ileal mucosa with hyperemia, negative for active enteritis or granulomata. CR-0 03/18/07 KO 03/18/07 Verified by: ? Lexie Branham MD ?Pathologist ?(Electronic Signature) The attending pathologist whose signature appears on this report has reviewed all diagnostic slides and has edited the gross and/or microscopic portion of the report in rendering the final pathologic diagnosis. [facility] 03/16/2007 6:51 PM EDT Roula Saez MD PATHOLOGY/CYTOLOGY [facility] [place] Performing Organization Address City/State/[facility] Co ne Phone Number [facility] documented in this encounter Visit Diagnoses Not on filedocumented in this encounter Care Teams Revenue Enforcement Agent Relationship Specialty Start Date End Date Veronica Campbell APRN [address] [place] [address] PCP - General Family Medicine 01/18/22 documented as of this encounter
--- OUTSIDE RECORDS SUMMARY | 2024-05-18 15:18 | XMS_ITS | Encounter Summary ---
Author Organization [facility] [place] [address] Care Team Providers Care Warp Spooler Name Role Phone Gianluca Nassar MD Primary Care Provider Encounter Details Date Type Department Care Team (Late st Contact Info) Description 12/04/2010 10:20 AM EST Clinical [place] [address] Social History Tobacco Use Types Packs/Day Years [...] 2:00 PM EDT Office [place] [address] Bernard Linares MD [facility] [place] [address] 09/07/2024 3:00 PM EST Office Visit Dermatology at [facility] [address] [place] [address] Jeremiah Preston MD [facility] [place] [address] documented as of this encounter Visit Diagnoses Not on filedocumented in this encounter Care Teams Warp Spooler Relationship Specialty Start Date End Date Gianluca Nassar MD [address] [place] [address] PCP - General 08/19/10 07/18/15 documented as of this encounter
--- OUTSIDE RECORDS SUMMARY | 2024-05-18 15:18 | XMS_ITS | Encounter Summary ---
[place] [address] Care Team Providers Care Armored Car Driver Name Role Phone Gianluca Nassar MD Primary Care Provider Encounter Details Date Type Department Care Team (Late st Contact Info) Description 07/02/2015 - 07/02/2015 11:59 PM EDT Hospital Encounter [place] [address] [address] Rodolfo Temporary Pain Discharge Disposition: Home Social History Tobacco Use [...] = 1 Tablet(s), PO, QHS 12/12/2010 02/25/2022 hydroCODone-acetaminophen (VICODIN) 5-500 mg per tablet 1 Tablet(s), PO, Q4-6H,PRN 12/12/2010 08/15/2015 docusate sodium (COLACE) 100 mg capsule 100 MG = 1 Capsule(s), PO, Three times daily 12/12/2010 08/15/2015 documented as of this encounter Plan of Treatment Upcoming Encounters Date Type Department Care Team (Late st Contact Info) Description 05/24/2024 2:00 PM EDT Office [place] [address] Bernard Linares MD [facility] [place] [address] 09/07/2024 3:00 PM EST Office Visit Dermatology at [address] [place] [address] Jeremiah Preston MD [facility] [address] [place] [address] documented as of this encounter Procedures Procedure Name Priority Date/Time Associated Diagnosis Comments FILM LIBRARY STORAGE ONLY CT ABDOMEN AND PELVIS Routine 07/02/2015 12:00 AM EDT Pain documented in this encounter Results * Film Library- Storage Only CT Abdomen & Pelvis (07/02/2015 12:00 AM EDT) Narrative [facility] - 07/30/2015 3:35 PM EST See PACS for result report. Dr Joaquin [facility] FILM LIBRARY ORD ERABLES [place], [place] documented in this encounter Visit Diagnoses Diagnosis Pain Generalized pain documented in this encounter Care Teams Armored Car Driver Relationship Specialty Start Date End Date Gianluca Nassar MD [address] [place] [address] PCP - General 08/19/10 07/18/15 documented as of this encounter
--- OUTSIDE RECORDS SUMMARY | 2024-05-18 15:18 | XMS_ITS | Encounter Summary ---
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 * SCANNED DOCS Veronica Campbell APRN [address] [place] [address] [facility] Cardiology [address] [place] [id number] Referral ID Status Reason Start Date Expiration Date V isits Requested Visits Authorized [id number] Closed Consult, Test & Treat PCP Updated and/or Approved 01/18/2022 01/18/2023 12 12 Encounter Details Date Type Department Care Team (Late st Contact Info) Description 01/29/2022 1:00 PM EDT Office Visit Cardiology at [address] [address] Pablito Hunt MD [facility] [place] [address] Coronary artery disease due to lipid rich plaque; Primary hypertension; Coronary artery disease involving coronary bypass graft of [place] heart without angina pectoris; SOB (shortness of breath) Social History Tobacco Use Types Packs/Day Years [...] Sign Reading Time Taken Comments Blood Pressure 156/77 01/29/2022 12:44 PM EDT Pulse 78 01/29/2022 12:44 PM EDT Temperature - - Respiratory Rate - - Oxygen Saturation 99% 01/29/2022 12: 44 PM EDT Inhaled Oxygen Concentration - - Weight 101.5 kg (223 lb 12.8 oz) 2021 12:44 PM EDT Height 177.8 cm (5' 10) 01/29/2022 12: 44 PM EDT Body Mass Index 32.11 01/29/2022 12:44 PM EDT documented in this encounter Progress Notes * Pablito Hunt MD - 01/29/2022 1:00 PM EDT Images from the original note were not included. [facility], Located [facility] [place] [address] Referring Provider: Veronica Campbell APRN [address] [place] [address] Reason for Consultation / Chief Complaint: Dyspnea on exertion Past Cardiac History and Relevant Comorbidities: Coronary disease status post CABG (FOREMAN to LAD, SVG to RCA, SVG to OM) Diabetes Hyperlipidemia Obesity Hypertension HPI: Conrad Vera is a 66 y.o. male with history of the above cardiovascular issues who presentsfor evaluation of his cardiovascular disease. Raza presents today with complaints of worsening dyspnea on exertion and chest tightness. He notes that when he initially presented over 10 years ago with crescendo angina, he never had classic chest discomfort either. His symptoms now are quite reminiscent of that time. Specifically, he notes that he started to become slightly more short of breath roughly 3 years ago, however there is been a marked change in the last 3 months with progressive worsening in his exercise tolerance. He notes that simply walking out to the barn at too fast of a pace will bring on his symptoms. Denies any syncope or palpitations. No claudication, significant lower extremity edema, orthopnea or PND. No other new significant symptoms. No bleeding issues. 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 Family History: Father of [place], mother's extended family with heart failure ALLERGIES: Allergies Allergen Reactions ??? Amoxicillin-Pot Clavulanate CIS [...] GI shutdown MEDICATIONS: Current Outpatient Medications: ??? Trulicity 1.5 mg/0.5 mL Pen Injector, , Disp: , Rfl: ??? nitroGLYcerin (Nitrostat) 0.4 mg Tablet, Sublingual, Place 0.4 mg under the tongue every 5 minutes as needed for Chest pain., Disp: , Rfl: ??? CIS Free Text Med - Aspirin, 81 MG = 1 Tablet(s), PO, QAM, Disp: , Rfl: ??? allopurinol (ZYLOPRIM) 300 mg tablet, 300 mg, PO, Once daily, Disp: , Rfl: ??? losartan (COZAAR) 50 mg tablet, 50 mg, PO, Once daily, Disp: , Rfl: ??? metFORMIN (GLUCOPHAGE) 500 mg tablet, 500 MG = 1 Tablet(s), PO, Once daily, Disp: , Rfl: ??? atorvastatin (LIPITOR) 10 mg tablet, 10 MG = 1 Tablet(s), PO, QHS, Disp: , Rfl: ??? aspirin EC 81 mg Tablet, Delayed Release (E.C.), Take 81 mg by mouth daily., Disp: , Rfl: ??? amLODIPine (Norvasc) 5 mg Tablet, Take 1 tablet by mouth daily., Disp: 30 tablet, Rfl: 3 ??? isosorbide mononitrate CR (Imdur) 30 mg Tablet Sustained Release 24 hr, Take 1 tablet by mouth daily., Disp: 30 tablet, Rfl: 3 ROS: As per HPI, otherwise the remainder of the ROS was either non-pertinent or negative. PHYSICAL EXAM: Vitals: 01/29/22 1244 BP: 156/77 Pulse: 78 SpO2: 99% Weight: 101.5 kg (223 lb 12.8 oz) Height: 177.8 cm (5' 10) Constitutional: [...] the following is my own assessment): ECG 01/2022: Sinus rhythm with PVCs, prior inferior [place] Labs / Reports Reviewed: TTE 12/2021: Normal biventricular systolic function, EF 62%, normal valves, ascending aorta 3.7 cm A/P: Conrad Vera is a 66 y.o. male who presents for evaluation of the following cardiovascular issues: 1. Coronary artery disease status post CABG/worsening dyspnea on exertion: His symptoms are certainly concerning for progressive anginal symptoms. We discussed both invasive and noninvasive avenues towards evaluating for progressive ischemic heart disease. Ultimately, we decided to start optimal medical therapy in addition to proceeding to invasive coronary/bypass graft angiography with left heart catheterization. 2. Hypertension: Blood pressure poorly controlled, starting antianginal medicines that should ideally have some antihypertensive effects. 3. Hyperlipidemia: He is on too low of a dose of statin for his degree of coronary artery disease regardless of his lipid numbers. We are starting 2 new medications today, so I will defer increasing his Lipitor back to an appropriate level, however anticipate doing this after his cardiac catheterization. 4. DM2: Management as per primary care physician Recommendations: 1: Cardiac catheterization 2: Start amlodipine 5 mg and isosorbide mononitrate 30 mg Pablito Hunt MD 01/29/2022 1:38 PM documented in this encounter Miscellaneous Notes * Addendum Note - Richelle Coker - 01/29/2022 1:00 PM EDTAddended by: RICHELLE COKER on: 01/29/2022 01:44 PM Modules accepted: Orders documented in this encounter Plan of Treatment Upcoming Encounters Date Type Department Care Team (Late st Contact Info) Description 05/24/2024 2:00 PM EDT Office Visit [place] [address] Bernard Linares MD [facility] [place] [address] 09/07/2024 3:00 PM EST Office Visit Dermatology at [address] [place] [address] Jeremiah Preston MD [facility] [place] [address] documented as of this encounter Procedures Procedure Name Priority Date/Time Associated Diagnosis Comments HEMOGRAM Routine 01/29/2022 1:54 PM EDT Coronary artery disease due to lipid rich plaque DIFFERENTIAL, AUTOMATED Routine 01/29/2022 1:54 PM EDT Coronary artery disease due to lipid rich plaque HC CBC,PLT & AUTO DIFF Routine 01/29/2022 1:54 PM EDT Coronary artery disease due to lipid rich plaque HC VENIPUNCTURE Routine 01/29/2022 1:54 PM EDT Coronary artery disease due to lipid rich plaque EKG 12-LEAD Routine 01/29/2022 12:52 PM EDT Coronary artery disease due to lipid rich plaque Primary hypertension Coronary artery disease involving coronary bypass graft of [place] heart without angina pectoris SOB (shortness of breath) documented in this encounter Results * Differential, Automated (01/29/2022 1:54 PM EDT) Neutrophil % 61.6 % [facility] Neutrophil Absolute 5.39 1.70 - 6.10 x10(3)/[facility] Lymph % 28.1 % [facility] Lymphocytes Abs 2.5 0.9 - 3.2 x10(3)/[facility] Monocyte % 6.3 % [facility] Monocyte Abs 0.6 0.3 - 0.9 x10(3)/[facility] Eos % 2.7 % [facility] Eosinophils Abs 0.2 0.0 - 0.4 x10(3)/[facility] Basophil % 0.8 % [facility] Baso Absolute 0.1 0.0 - 0.1 x10(3)/[facility] Immature Gran % 0.50 % [facility] Comment: Immature granulocytes(IG's)percentage and absolute count will include metamyelocytes, myelocytes, and promyelocytes. Blood smears from CBCs yielding IG's will be scanned manually for concordance. If this scan disagrees with the automated IG or if promyelocytes are noted, a manual differential will be performed. Immature Gran Absolute 0.04 0.00 - 0.04 x10(3)/[facility] Blood 01/29/2022 1:54 PM EDT 01/29/2022 2:05 PM EDT Narrative Resulting Agency Comment Spec In Lab Pablito Hunt MD HEMATOLOGY ORDERABLE S [facility] [place] [address] * (ABNORMAL) Hemogram (01/29/2022 1:54 PM EDT) White Blood Cell 8.8 4.0 - 9.5 x10(3)/ L [facility] Red Blood Cell 4.42(L) 4.58 - 5.54 x10(6)/mc L [facility] Hemoglobin 13.9 13.7 - 16.5 g/dL [facility] Hematocrit 39.9(L) 40.5 - 48.5 % [facility] Mean Cell Volume 90.3 82.9 - 93.1 fL [facility] Mean Cell Hemoglobin 31.4 27.5 - 32.1 pg [facility] Mean Cell Hemoglobin Concentration 34.8 32.0 - 35.7 g/dL [facility] Platelet 125(L) 145 - 357 x10(3)/ L [facility] RDW Standard Deviation 43.6 36.0 - 45.0 fL [facility] RDW coefficient of variation 13.2 11.4 - 13.8 % [facility] Mean Platelet Volume 11.3 7.6 - 12.9 fL [facility] NRBC% auto 0.0 % [facility] NRBC Absolute 0.000 0.000 - 0.000 x10(3)/mc L [facility] Blood 01/29/2022 1:54 PM EDT 01/29/2022 2:05 PM EDT Narrative Resulting Agency Comment Spec In Lab Pablito Hunt MD HEMATOLOGY ORDERABLE S [facility] [place] [address] * (ABNORMAL) Basic Metabolic Panel (non-fasting) (01/29/2022 1:54 PM EDT) Glucose 174 65 - 199 mg/dL [facility] Comment:Diabetes: >=200 mg/d L plus symptoms Blood Urea Nitrogen 13 10 - 20 mg/dL [facility] Creatinine 1.03 0.80 - 1.50 mg/dL [facility] Sodium 137 135 - 145 mmol/L [facility] Potassium 4.4 3.5 - 5.0 mmol/L [facility] Comment: Please note: ??Patients with WBC >100,000 may have falsely elevated Potassium levels. ??For accurate Potassium quantification in these patients send serum separator tube (gold top) for subsequent determinations. ??Contact the Clinical Chemistry Laboratory if there are any questions. Chloride 104 98 - 107 mmol/L [facility] Carbon Dioxide 21(L) 22 - 31 mmol/L [facility] Anion Gap 12 5 - 15 mmol/L [facility] Calcium 9.9 8.5 - 10.5 mg/dL [facility] Est Glomerular Filtration Rate 74 >=60 mL/min/1. 73 m?? [facility] Comment: This patient? s estimated glomerular filtration rate (eGFR) is between 74 mL/min/1.73 m2 (patients with less muscle mass per kg body weight) and 86 mL/min/1.73 m2 (patients with more muscle mass [...] and symptoms in addition to eGFR. Blood 01/29/2022 1:54 PM EDT 01/29/2022 2:05 PM EDT Narrative Resulting Agency Comment Spec In Lab Pablito Hunt MD CHEMISTRY ORDERABLES Performing Organization Address City/[facility] Co de Phone Number [facility] [place] [address] * EKG 12 Lead (01/29/2022 12:52 PM EDT) Ventricular rate 72 BPM MUSE SYSTEM Atrial Rate 72 BPM MUSE SYSTEM P-R Interval 144 ms MUSE SYSTEM QRS Duration 84 ms MUSE SYSTEM Q-T Interval 380 ms MUSE SYSTEM QTC Calculated (Bezet) 416 ms MUSE SYSTEM Calculated P [place] 16 degrees MUSE SYSTEM Calculated R [place] -10 degrees MUSE SYSTEM Calculated T [place] 62 degrees MUSE SYSTEM INTERPRETATION Sinus rhythm Occasional Premature ventricular complexes 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) Cannot rule out Anterior infarct , age undetermined Abnormal ECG When compared with ECG of 04-DEC-2010 15:34, Premature ventricular complexes are now Present Confirmed by MD Unger Danette ([id number]) on 01/29/2022 2:57:31 PM MUSE SYSTEM 01/29/2022 12:5 2 PM EDT 01/29/2022 2:57 PM EDT Pablito Hunt MD ECG ORDERABLES Performing Organization Address City/[facility]/ZIP Co de Phone Number MUSE SYSTEM documented in this encounter Visit Diagnoses Diagnosis Coronary artery disease due to lipid rich plaque Primary hypertension Unspecified essential hypertension Coronary artery disease involving coronary bypass graft of [place] heart without angina pectoris SOB (shortness of breath) Shortness of breath documented in this encounter Care Teams Open Hearth Laborer Relationship Specialty Start Date End Date Veronica Campbell APRN [address] [place] [address] PCP - General Family Medicine 01/18/22 documented as of this encounter
--- OUTSIDE RECORDS SUMMARY | 2024-05-18 15:18 | XMS_ITS | Encounter Summary ---
Author Organization [facility] [place] [address] Care Team Providers Care Liquid Flavor Compounder Name Role Phone Veronica Campbell APRN Primary Care Provider [phone] Encounter Details Date Type Department Care Team (Late st Contact Info) Description 02/16/2022 [place] [phone] Viktoriya Blakely Social History Tobacco Use Types Packs/Day Years [...] encounter Miscellaneous Notes * Telephone Encounter - Diana Altamirano RN - 02/16/2022 4:15 PM EDT Order faxed as requested. * Telephone Encounter - Viktoriya Blakely - 02/16/2022 2:01 PM EDT Is this the first test for Covid 19 If no, please list date of previous test, result, and type of test (Molecular, Antigen, Antibody orunknown): Resides in long-term, [facility] or other residential facility No Employee or Household Member of Employee No Healthcare Worker No Telephone call placed/received to schedule Covid 19 testing with patient. Ordering provider: Pablito Hunt Testing Facility: Located Within [facility] Date of Testin/28 Time of Testing:TBD Symptoms: Pre Op Please send order to listed facility. documented in this encounter Plan of Treatment Upcoming Encounters Date Type Department Care Team (Late st Contact Info) Description 05/24/2024 2:00 PM EDT Office [place] [address] Bernard Linares MD [facility] [place] [address] 09/07/2024 3:00 PM EST Office Visit Dermatology at [place] [address] [place] [address] Jeremiah Preston MD [facility] [place] [address] documented as of this encounter Visit Diagnoses Not on filedocumented in this encounter Care Teams Liquid Flavor Compounder Relationship Specialty Start Date End Date Veronica Campbell APRN [address] [place] [address] PCP - General Family Medicine 01/18/22 documented as of this encounter
--- OUTSIDE RECORDS SUMMARY | 2024-05-18 15:18 | XMS_ITS | Encounter Summary ---
Author Organization [facility] Address [facility] [place] [address] Care Team Providers Care Site Planner Name Role Phone Cipriano Yuan MD Primary Care Provider Reason for Visit * Consultation (Routine) - Closed Specialty Diagnoses / Procedures Referred By Jason garcia Referred To Contact General Surgery Diagnoses recurrent diverticulitis ? candidate for sigmoid resection Cipriano Yuan MD [address] [place] [address] [facility] [place] [address] [place] [address] Referral ID Status Reason Start Date Expiration Date V isits Requested Visits Authorized [id number] Closed Consult, Test & Treat Connection Center 07/19/2015 07/18/2016 1 1 Encounter Details Date Type Department Care Team (Late st Contact Info) Description 08/15/2015 1:00 PM EST Office [place] [address] Yovanny Aguilar MD [facility] [place] [address] Diverticulosis of intestine without bleeding, unspecified intestinal tract location; Coronary artery disease due to lipid rich plaque; Coronary artery disease involving coronary bypass graft of [place] heart without angina pectoris; Type 2 diabetes mellitus without complication; Essential hypertension; Memory loss; Obesity; Peptic disease; Kidney stones; Gout of hand, unspecified cause, unspecified chronicity, unspecified laterality Social History Tobacco Use Types Packs/Day Years Used Date Smoking Tobacco: Never Sex and Gender Information Value Date Recorded Sex Assigned at Not on file Gender Identity Not on file Sexual Orientation Not on file documented as of this encounter Last Filed Vital Signs Vital Sign Reading Time Taken Comments Blood Pressure 158/80 08/15/2015 1:10 PM EST Pulse 78 08/15/2015 1:10 PM EST Temperature 36.8 ??C (98.2 ??F) 08/15/2015 1:10 PM ES T Respiratory Rate 79 08/15/2015 1:10 PM EST Oxygen Saturation 99% 08/15/2015 1:10 PM EST Inhaled Oxygen Concentration - - Weight 104.3 kg (229 lb 15 oz) 08/15/2015 1:10 P M EST Height 175 cm (5' 8.9) 08/15/2015 1:10 PM EST Body Mass Index 34.06 08/15/2015 1:10 PM EST documented in this encounter Progress Notes * Yovanny Aguilar MD - 08/15/2015 1:22 PM EST Colon and Rectal Surgery Outpatient Consultation Note [place] [address] FAX: CC: Diverticular disease HPI:Conrad Vera (Raza) is a pleasant 60 y.o. male who I was asked to see by Dr. Yuan regardingdiverticular disease. The patient's PCP is CIPRIANO YUAN MD. Raza is a 60-year-old man who presents for evaluation for surgical intervention for diverticular disease. Raza has had episodes of diverticular disease over the course of the last 20 years. He states that he has been admitted to the hospital several times over the last year, about six times, but usually about 20% of the cases have been dealt with in terms of outpatient management with antibiotics. Raza states that he found that when he does not drink a lot of fluid that he has more problems with diverticulitis. He overall has not had any major issues with his diverticular disease, although has been to the hospital a couple of times. Raza states that he has some family history of diverticular disease and his brother had had a resection and an anastomosis for diverticular disease with no problems. Raza does state that he has some issues with leakage and fecal urgency at times. He states that he has a bowel movement about four to five times a day and at times it is a liquid to a squash-like consistency. Raza is not necessarily interested in surgery, but he would like to talk more about surgical intervention. The patient has a bowel movement four to five times per day, with a typical medium in size and softin consistency. Regarding continence, the patient has urgency but no incontinence to gas, no incontinence to liquid stool, or no incontinence to solid stool. The patient has had a colonoscopy in 2010with the results being normal with descending and sigmoid diverticulosis. Past medical history: Patient Active Problem List Diagnosis ??? CAD (coronary artery disease) ??? Hypertension ??? Gout ??? Peptic disease ??? Diabetes mellitus ??? Kidney stones ??? Obesity ??? Memory loss ??? Coronary artery disease involving coronary bypass graft ??? Diverticular disease Past surgical history: Allergies: Amoxicillin-pot clavulanate; Colchicine; Metronidazole; Opioids - morphine analogues; Opioids-meperidine & related; and Opioids-methadone & related Medications: reviewed in the electronic medical record. Current Outpatient Prescriptions on File Prior to Visit Medication Sig Dispense Refill ??? CIS Free Text Med - Aspirin 81 MG = 1 Tablet(s), PO, QAM ??? allopurinol (ZYLOPRIM) 300 mg tablet 300 mg, PO, Once daily ??? losartan (COZAAR) 50 mg tablet 50 mg, PO, Once daily ??? metFORMIN (GLUCOPHAGE) 500 mg tablet 500 MG = 1 Tablet(s), PO, Once daily ??? atorvastatin (LIPITOR) 10 mg tablet 10 MG = 1 Tablet(s), PO, QHS ??? [DISCONTINUED] hydroCODone-acetaminophen (VICODIN) 5-500 mg per tablet 1 Tablet(s), PO, Q4-6H,PRN ??? [DISCONTINUED] docusate sodium (COLACE) 100 mg capsule 100 MG = 1 Capsule(s), PO, Three times daily No current facility-administered medications on file prior to visit. Social history: reports that he has never smoked. He does not have any smokeless tobacco history onfile. Family medical history: The patient has family history of diverticular disease The patient denies afamily history of diverticular disease Review of Systems: Constitution: Negative for fevers, chills, weight loss, weight gain. Central Nervous System: Negative for headache, stroke, memory loss, seizures, fainting. Hearing: Negative for hearing loss, ringing in the ears, hearing aids. Vision: Positive for glasses. Negative for cataracts, glaucoma, double vision. Heart: Negative for chest pain, palpitations, heart attack, shortness of breath while lying flat. Lungs: Negative for shortness of breath, chronic cough, wheezing, asthma. Digestive: Positive for diarrhea. Negative for nausea, vomiting. Physical Exam: Blood pressure 158/80, pulse 78, temperature 36.8 ??C (98.2 ??F), resp. rate 79, height 175 cm (5' 8.9), weight 104.3 kg (229 lb 15 oz), SpO2 99 %. Body mass index is 34.06 kg/(m^2). Constitutional: alert, appears stated age and cooperative Psychiatric: oriented to time, place and person, mood and affect are within normal limits, pt is a good historian; no memory problems were noted No exam performed due to the primary purpose of this visit being for counseling and coordination ofcare Laboratory Studies: The patient has no laboratory studies to review Radiographic Studies: Radiographic studies were independently reviewed by me on our PACS system prior to the office visit and again viewed by the patient and myself during consultation and the pertinent findings are mid-sigmoid diverticulitis. Other Diagnostic Studies: Other diagnostic tests were independently reviewed including colonoscopy reports from 2010 and the pertinent findings are slight ileal erosion . COREFO: COREFO Responses 08/15/2015 Incontinence Scale 27.77 Social Impact Scale 36.11 Frequency Scale 25 Stool Releated Aspects 8.33 Medication Scale 0 Total COREFO Score 25 Impression: Conrad Vera is a pleasant 60 y.o. male with a past medical history of diabetes, hypertension, and coronary artery disease who I have been asked to see for diverticular disease. My assessment is that the patient has several episodes of uncomplicated diverticulitis. Plan: I have discussed with Raza and Joana, his , the nature of the disease process above. Raza, his , and I discussed the fact that he had several episodes of uncomplicated diverticulitis. We discussed the fact that diverticular disease, typically the first episode is the worst episode and subsequent episodes are actually not that serious. I did discuss with him that his major issue is his diet and that we need to put him on a high fiber, high water diet. Raza's last colonoscopy was in 2010, and I think it would be reasonable to repeat this to ensure that there is not a lesion or a mass that is causing any problems in his diverticular segment. He has had his last colonoscopy by Dr. Roula Saez, and I will send him back to her for a colonoscopy for evaluation. Raza and I discussed the fact that should his symptoms still persist despite the fact of his high fiber, high water diet, then we could proceed with a minimally invasive sigmoid resection with a primary anastomosis. I briefly discussed this with him, but I would like him to have a trial of nonoperative management with the high-fiber diet prior to discussion of surgical intervention. Raza and his understand. He will plan on calling me in about two months to see how things are going. 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 Division of Colon and Rectal Surgery [facility] Pager #[phone] documented in this encounter Plan of Treatment Upcoming Encounters Date Type Department Care Team (Late st Contact Info) Description 05/24/2024 2:00 PM EDT Office [place] [address] Bernard Linares MD [facility] [place] [place] [address] 09/07/2024 3:00 PM EST Office Visit Dermatology at [facility] [address] [place] [address] Jeremiah Preston MD [facility] [address] [place] [address] documented as of this encounter Visit Diagnoses Diagnosis Diverticulosis of intestine without bleeding, unspecified intestinal tract location Coronary artery disease due to lipid rich plaque Coronary artery disease involving coronary bypass graft of [place] heart without angina pectoris Type 2 diabetes mellitus without complication Essential hypertension Unspecified essential hypertension Memory loss Obesity Obesity, unspecified Peptic disease Unspecified functional disorder of stomach Kidney stones Calculus of kidney Gout of hand, unspecified cause, unspecified chronicity, unspecified laterality documented in this encounter Care Teams Site Planner Relationship Specialty Start Date End Date Cipriano Yuan MD [address] [place] [address] PCP - General Family Medicine 07/19/15 01/17/22 documented as of this encounter
--- OUTSIDE RECORDS SUMMARY | 2024-05-18 15:18 | XMS_ITS | Encounter Summary ---
Author Organization [facility] [place] [address] Care Team Providers Care Industrial Machine System Technician Name Role Phone Gianluca Nassar MD Primary Care Provider [phone] Encounter Details Date Type Department Care Team (Late st Contact Info) Description 10/24/2010 2:30 PM EST Procedure visit [place] [address] Social History Tobacco Use Types Packs/Day Years [...] 2:00 PM EDT Office [place] [address] Bernard Linares MD [facility] [place] [address] 09/07/2024 3:00 PM EST Office Visit Dermatology at [facility] [address] [place] [address] Jeremiah Preston MD [facility] [address] [place] [address] documented as of this encounter Visit Diagnoses Not on filedocumented in this encounter Care Teams Industrial Machine System Technician Relationship Specialty Start Date End Date Gianluca Nassar MD [address] [place] [address] PCP - General 08/19/10 07/18/15 documented as of this encounter
--- OUTSIDE RECORDS SUMMARY | 2024-05-18 15:18 | XMS_ITS | Encounter Summary ---
Author Organization [facility] [place] [address] Care Team Providers Care Supervisor Rose Grading Name Role Phone Gianluca Nassar MD Primary Care Provider [phone] Encounter Details Date Type Department Care Team (Latest Contact Info) Description 12/10/2010 12:56 PM EDT - 12/10/2010 9:45 PM EDT Hospital Encounter [place] [phone] Hi Gaitan MD [facility] [place] [address] Discharge Disposition: Home Social History Tobacco Use [...] 2:00 PM EDT Office [place] [phone] Bernard Linares MD [facility] [place] [address] 09/07/2024 3:00 PM EST Office Visit Dermatology at [facility] [address] [place] [address] Jeremiah Preston MD [facility] [address] [place] [address] documented as of this encounter Procedures Procedure Name Priority Date/Time Associated Diagnosis Comments POCT GLUCOSE Routine 12/10/2010 8:06 PM EDT SURGICAL PATHOLOGY REPORT Routine 12/10/2010 5:11 PM EDT POCT GLUCOSE Routine 12/10/2010 1:53 PM EDT documented in this encounter Results * (ABNORMAL) POCT GLUCOMETER ORDER (LAB USE ONLY) (12/10/2010 8:06 PM EDT) Glucose, POC 152(H) 70 - 110 mg/dL [facility] Comment: Supplemental ranges: <110 mg/dL before meals <200 mg/dL all other times of the day Blood specimen (specimen) 12/10/2010 8:06 PM EDT 12/10/2010 8:06 PM EDT Hi Gaitan MD POINT OF CARE TEST O RDERABLES Performing Organization Address City/State/[facility] Co de Phone Number [facility] * PATHOLOGY SURGICAL PATHOLOGY FINAL REPORT (12/10/2010 5:11 PM EDT) Surgical Pathology Report ? [facility] ? Provider: ?? HI GAITAN ? Pt. Name: ?? CHRISTY VERA Alba ? Acc #: ?[id number] ?Pt. ? Col Date: ?? 12/10/2010 ? /Sex: ?1955,(55 years),Male ? Rec Date: ?? 12/10/2010 ? LOC: ?SDP ? SURGICAL PATHOLOGY ? ---Pathologic Diagnosis--- ? Gallbladder, cholecystectomy: ? Chronic cholecystitis and cholelithiasis. ? CR-0 ? 12/12/10 ? AAS ? 12/12/10 Verified by: ? Filipe Hoang MD ? Pathologist ? (Electronic Signature) ? The attending pathologist whose signature appears on this report has ? reviewed all diagnostic slides and has edited the gross and/or ? microscopic portion of the report in rendering the final pathologic ? diagnosis. ? ---Microscopic Description--- ? Slides reviewed, microscopic description not recorded. ? ---Gross Description--- ? Labeled/Fixative: ? Gallbladder with contents, fresh. ? Qty/Size/Weight: ?7.0 x 3.5 x 3.0 cm. ? Tissue Description: ?? Intact gallbladder. ?External surface: ??Serosa is smooth, glistening, pink-titus. ??Adventitia ? is shaggy, green-yellow. ?Lumen contents: ?The lumen contains a moderate amount of viscid, ? green-yellow bilious material and several green-black ? choleliths, averaging 0.4 cm in diameter. ?Mucosa: ?Velvety, green-titus. ?Wall: ?Averages 0.3 cm in thickness. ?Duct: ?Unremarkable. ?LN: ?Not identified. ? Sections/Processi ng: ??(R1) ??aje/EJR ? ---Clinical Information--- ? Specimen Submitted: ? A - Gallbladder with contents, abdomen ? Clinical History: ? Not provided ? Clinical Diagnosis: ? Biliary colic CERNER MILLENNIUM 12/10/2010 5:11 PM EDT Hi Gaitan MD PATHOLOGY/CYTOLOGY O LEIF Performing Organization Address City/[facility] Co de Phone Number CEROXANA BANKSENNIUM * POCT GLUCOMETER ORDER (LAB USE ONLY) (12/10/2010 1:53 PM EDT) Glucose, POC 110 70 - 110 mg/dL [facility] Comment: Supplemental ranges: <110 mg/dL before meals <200 mg/dL all other times of the day Blood specimen (specimen) 12/10/2010 1:53 PM EDT 12/10/2010 1:53 PM EDT Hi Gaitan MD POINT OF CARE TEST O LEIF Performing Organization Address [facility] Co de Phone Number [facility]AYLIN DEANIUM documented in this encounter Visit Diagnoses Not on filedocumented in this encounter Active and Recently Administered Medications Care Teams Supervisor Rose Grading Relationship Specialty Start Date End Date Gianluca Nassar MD [address] [place] [address] PCP - General 08/19/10 07/18/15 documented as of this encounter
--- OUTSIDE RECORDS SUMMARY | 2024-05-18 15:18 | XMS_ITS | Encounter Summary ---
Author Organization [facility] [place] [address] Care Team Providers Care Senior It Specialist Name Role Phone Cipriano Yuan MD Primary Care Provider [phone] Encounter Details Date Type Department Care Team (Late st Contact Info) Description 09/02/2015 8:45 AM EST - 09/02/2015 9:30 AM EST [place] [address] Roula Saez MD [facility] [place] [address] COLONOSCOPY, DIAGNOSTIC (WRVU 3.26) Social History Tobacco Use Types Packs/Day Years [...] to be checked. Wednesday-Wednesday Same Day Endo [phone] [id number] Otherwise contact [phone] and ask to speak to the wall man arch cushion press operator Follow up care is a lopez part [...] 2:00 PM EDT Office Visit Otolaryngology at [facility] [place] [address] Bernard Linares MD [facility] [place] [address] 09/07/2024 3:00 PM EST Office Visit Dermatology at [facility] [address] [place] [address] Jeremiah Preston MD [facility] [address] [place] [address] documented as of this encounter Procedures Procedure Name Priority Date/Time Associated Diagnosis Comments COLONOSCOPY, DIAGNOSTIC (WRVU 3.26) 09/02/2015 8:44 AM EST recurrent diverticulitis COLONOSCOPY Routine 09/02/2015 8:28 AM EST documented in this encounter Results * COLONOSCOPY (09/02/2015 8:28 AM EST) [facility] Signature COLONOSCOPY [facility] Endoscopy Patient Name: Conrad Vera ? Procedure Date: 09/02/2015 8:28 AM ? Date of : 1955 ? Age: 60 ? Order #: [id number] ? Procedure: ? Colonoscopy Indications: ? High risk colon cancer surveillance: ? Personal history of colonic polyps ? Also recurrent diverticulitis Providers: ? Roula Saez MD, Nicolle Bruner RN, ? Wendy Starks, Hot Dip Galvanizer Referring : ?Cipriano Yuan MD, Yovanny Renteria [...] EST Cipriano Yuan MD GENERAL SURGICAL ORD [facility] documented in this encounter Visit Diagnoses [...] CRNA) documented in this encounter Care Teams Senior It Specialist Relationship Specialty Start Date End Date Cipriano Yuan MD [address] [place] [address] PCP - General Family Medicine 07/19/15 01/17/22 documented as of this encounter
--- OUTSIDE RECORDS SUMMARY | 2024-05-18 15:18 | XMS_ITS | Encounter Summary ---
Author Organization [place] [address] Care Team Providers Care Back Strip Machine Operator Name Role Phone Gianluca Nassar MD Primary Care Provider [phone] Encounter Details Date Type Department Care Team (Late st Contact Info) Description 12/12/2010 9:30 AM EDT - 12/12/2010 11:04 AM EDT [place] [address] Bernard Hinton MD [facility] [place] [address] Discharge Disposition: Home Social History Tobacco Use [...] 2:00 PM EDT Office [place] [address] Bernard Linares MD [facility] [place] [address] 09/07/2024 3:00 PM EST Office Visit Dermatology at [place] [address] [place] [address] Jeremiah Preston MD [facility] [address] [place] [place] [address] documented as of this encounter Visit Diagnoses Not on filedocumented in this encounter Care Teams Back Strip Machine Operator Relationship Specialty Start Date End Date Gianluca Nassar MD [address] [place] [address] PCP - General 08/19/10 07/18/15 documented as of this encounter
--- OUTSIDE RECORDS SUMMARY | 2024-05-18 15:18 | XMS_ITS | Encounter Summary ---
[place] [address] Care Team Providers Care Warble Saw Operator Name Role Phone Veronica Campbell APRN Primary Care Provider [phone] Encounter Details Date Type Department Care Team (Late st Contact Info) Description 02/06/2022 Telephone Non-[place] [address] Mabel Mukherjee Social History Tobacco Use Types Packs/Day Years [...] encounter Miscellaneous Notes * Telephone Encounter - Mabel Mukherjee - 02/06/2022 11:10 AM EDT I left voice message today for patient letting him know we need to postpone his cardiac cath on WednesdayFebruary 09 to unavailability of contrast...which is needed for procedure. Natalia documented in this encounter Plan of Treatment Upcoming Encounters Date Type Department Care Team (Late st Contact Info) Description 05/24/2024 2:00 PM EDT Office [place] [address] Bernard Linares MD [facility] [place] [address] 09/07/2024 3:00 PM EST Office Visit Dermatology at [facility] [address] [place] [address] Jeremiah Preston MD [facility] [address] [place] [address] documented as of this encounter Visit Diagnoses Not on filedocumented in this encounter Care Teams Warble Saw Operator Relationship Specialty Start Date End Date Veronica Campbell APRN [address] [place] [address] PCP - General Family Medicine 01/18/22 documented as of this encounter
--- OUTSIDE RECORDS SUMMARY | 2024-05-18 15:18 | XMS_ITS | Encounter Summary ---
Author Organization [facility] [place] [address] Care Team Providers Care Fiber Design Engineer Name Role Phone Gianluca Nassar MD Primary Care Provider Encounter Details Date Type Department Care Team (Latest Contact Info) Description 10/29/2010 12:14 PM EST - 10/29/2010 1:40 PM EST Hospital Encounter [place] [address] Roula Saez MD [facility] [place] [place] [address] Discharge Disposition: Home Social History Tobacco Use [...] 2:00 PM EDT Office [place] [address] Bernard Linares MD [facility] [place] [address] 09/07/2024 3:00 PM EST Office Visit Dermatology at [facility] [address] [place] [address] Jeremiah Preston MD [facility] [address] [place] [address] documented as of this encounter Visit Diagnoses Not on filedocumented in this encounter Care Teams Fiber Design Engineer Relationship Specialty Start Date End Date Gianluca Nassar MD [address] [place] [address] PCP - General 08/19/10 07/18/15 documented as of this encounter
--- OUTSIDE RECORDS SUMMARY | 2024-05-18 15:18 | XMS_ITS | Encounter Summary ---
Author Organization [facility] [place] [address] Care Team Providers Care Glass Loading Equipment Tender Name Role Phone Veronica Campbell CHRISTEL Primary Care Provider [phone] Encounter Details Date Type Department Care Team (Late st Contact Info) Description 12/10/2010 Orders [place] [address] Hi Velasco MD [facility] [place] [address] Social History Tobacco Use Types Packs/Day Years [...] 2:00 PM EDT Office [place] [address] Bernard Linares MD [facility] [place] [address] 09/07/2024 3:00 PM EST Office Visit Dermatology at [facility] [address] [place] [address] Jeremiah Preston MD [facility] [place] [address] documented as of this encounter Procedures Procedure Name Priority Date/Time Associated Diagnosis Comments SURGICAL PATHOLOGY REPORT Routine 12/10/2010 5:11 PM EDT documented in this encounter Results * Surgical Pathology Report (12/10/2010 5:11 PM EDT) Surgical Pathology Report [id number] ? Location: [facility] The signing pathologist has (i) examined the relevant preparation(s) for the specimen(s) and (ii) rendered or confirmed the diagnosis(es). . ?Pathology Surgical Pathology Final Report Clinical Information Specimen Submitted: A - Gallbladder with contents, abdomen Clinical History: Not provided Clinical Diagnosis: Biliary colic Gross Description Labeled/Fixative: ? Gallbladder with contents, fresh. Qty/Size/Weight: ?7.0 x 3.5 x 3.0 cm. Tissue Description: ?? Intact gallbladder. ?? External surface: ??Serosa is smooth, glistening, pink-titus. ??Adventitia ?is shaggy, green-yellow. ?? Lumen contents: ?The lumen contains a moderate amount of viscid, ?green-yellow bilious material and several green-black ?choleliths, averaging 0.4 cm in diameter. ?? Mucosa: ?Velvety, green-titus. ?? Wall: ?Averages 0.3 cm in thickness. ?? Duct: ?Unremarkable. ?? LN: ?Not identified. Sections/Processi ng: ??(R1) ??aje/EJR Microscopic Description Slides reviewed, microscopic description not recorded. Diagnosis Gallbladder, cholecystectomy: Chronic cholecystitis and cholelithiasis. CR-0 12/12/10 AAS 12/12/10 Verified by: ? Viktor [place], Filipe Mckeon ?Pathologist ?(Electronic Signature) The attending pathologist whose signature appears on this report has reviewed all diagnostic slides and has edited the gross and/or microscopic portion of the report in rendering the final pathologic diagnosis. [facility] 12/10/2010 5:11 PM EDT Hi Velasco MD PATHOLOGY/CYTOLOGY O RDERASANDRA Performing Organization Address City/State/[facility] Co de Phone Number [facility] documented in this encounter Visit Diagnoses Not on filedocumented in this encounter Care Teams Glass Loading Equipment Tender Relationship Specialty Start Date End Date Veronica Campbell APRN [address] [place] [address] PCP - General Family Medicine 01/18/22 documented as of this encounter
--- OUTSIDE RECORDS SUMMARY | 2024-05-18 15:18 | XMS_ITS | Encounter Summary ---
Author Organization [facility] [place] [address] Care Team Providers Care Provider Network Analyst Name Role Phone Veronica Campbell CHRISTEL Primary Care Provider [phone] Encounter Details Date Type Department Care Team (Late st Contact Info) Description 02/29/2004 Orders [place] [address] Roula Saez MD [facility] [place] [address] Social History Tobacco Use Types Packs/Day Years [...] 2:00 PM EDT Office [place] [address] Bernard Linares MD [facility] [place] [address] 09/07/2024 3:00 PM EST Office Visit Dermatology at [facility] [address] [place] [address] Jeremiah Preston MD [facility] [place] [address] documented as of this encounter Procedures Procedure Name Priority Date/Time Associated Diagnosis Comments SURGICAL PATHOLOGY REPORT Routine 02/29/2004 10:29 AM EDT documented in this encounter Results * Surgical Pathology Report (02/29/2004 10:29 AM EDT) Surgical Pathology Report [id number] ? Location: The signing pathologist has (i) examined the relevant preparation(s) for the specimen(s) and (ii) rendered or confirmed the diagnosis(es). . ?Pathology Surgical Pathology Final Report Clinical Information Specimen Submitted: A - Biopsies; ileum. B - Biopsies; colon. Clinical History: Pt with history of micro ulcerations of ileum of uncertain clinical significance with recurrent episodes of abdominal pain. ??Random biopsies for ? IBD. ??Colon and ileum look normal. ??I: Hx polyps, ? IBD, recent diverticulitis. Frozen Section Diagnosis re Gross Description A - Labeled/Fixative : Biopsies ileum, formalin. Qty/Size/Weight: ?Four, 0.2 cm to 0.3 cm. Tissue Description: ?? Yellow-titus tissue. Sections/Process ing: ??(T1) B - Labeled/Fixative : Biopsies colon, formalin. Qty/Size/Weight: ?Three, 0.3 cm to 0.5 cm. Tissue Description: ?? Yellow-titus tissue. Sections/Process ing: ??(T1) ??aje/EJR Microscopic Description Slides reviewed, microscopic description not recorded. Diagnosis Endoscopic biopsies - A. ??Ileal mucosa within normal limits. B. Colonic mucosa within normal limits. CR-0 03/04/04 AAS 03/05/04 Verified by: ? Filipe Hoang MD ?Pathologist ?(Electronic Signature) The attending pathologist whose signature appears on this report has reviewed all diagnostic slides and has edited the gross and/or microscopic portion of the report in rendering the final pathologic diagnosis. Comment A. Deeper levels examined. KAYLIN MÁRQUEZ 02/29/2004 10:2 9 AM EDT Roula Saez MD PATHOLOGY/CYTOLOGY O RDERABLES [facility] documented in this encounter Visit Diagnoses Not on filedocumented in this encounter Care Teams Provider Network Analyst Relationship Specialty Start Date End Date Veronica Campbell APRN [address] [place] [address] PCP - General Family Medicine 01/18/22 documented as of this encounter
--- OUTSIDE RECORDS SUMMARY | 2024-05-18 15:18 | XMS_ITS | Encounter Summary ---
Author Organization [facility] [place] [address] Care Team Providers Care Bss Solution Architect Name Role Phone Veronica Campbell CHRISTEL Primary Care Provider [phone] Encounter Details Date Type Department Care Team (Latest Contact Info) Description 01/20/2022 5:00 PM EDT Ext Surgery or Single Event [address] [place] [id number] Higinio Penny MD [facility] [place] [address] Dyspnea, unspecified type Social History Tobacco Use Types Packs/Day Years [...] 2:00 PM EDT Office [place] [address] Bernard Linares MD [facility] [place] [address] 09/07/2024 3:00 PM EST Office Visit Dermatology at [facility] [address] [place] [address] Jeremiah Preston MD [facility] [place] [address] documented as of this encounter Procedures Procedure Name Priority Date/Time Associated Diagnosis Comments ECHO SCAN (SCAN) 01/20/2022 12:0 0 AM EDT documented in this encounter Results * SCAN DOC: ECHO (01/20/2022 12:00 AM EDT) Anatomical Region Laterality Modality Cardiac Other Unknown MEDIA MGR SCAN EXT O RDR/RSLT documented in this encounter Visit Diagnoses Diagnosis Dyspnea, unspecified type documented in this encounter Care Teams Bss Solution Architect Relationship Specialty Start Date End Date Veronica Campbell APRN [address] [place] [address] PCP - General Family Medicine 01/18/22 documented as of this encounter
--- OUTSIDE RECORDS SUMMARY | 2024-05-18 15:18 | XMS_ITS | Encounter Summary ---
Author Organization [facility] [place] [address] Care Team Providers Care Consultant Technology Name Role Phone Gianluca Nassar MD Primary Care Provider Encounter Details Date Type Department Care Team (Late st Contact Info) Description 12/12/2010 Orders [place] [address] Bernard Hinton MD [facility] [place] [address] Social History Tobacco Use Types Packs/Day Years [...] 2:00 PM EDT Office [place] [address] Bernard Linares MD [facility] [place] [address] 09/07/2024 3:00 PM EST Office Visit Dermatology at [facility] [address] [place] [address] Jeremiah Preston MD [facility] [address] [place] [address] documented as of this encounter Procedures Procedure Name Priority Date/Time Associated Diagnosis Comments XR CHEST PA AND LATERAL Routine 12/12/2010 10:23 AM EDT documented in this encounter Results * XR CHEST ROUTINE PA & LATERAL (12/12/2010 10:23 AM EDT) Anatomical Region Laterality Modality Chest N/A Radiographic Kizzy ging 12/12/2010 10:2 3 AM EDT Impressions 12/12/2010 3:54 PM EDT IMPRESSION: ??No pneumonia or other interval change. Narrative 12/12/2010 3:54 PM EDT EXAMINATION: ??PA AND LATERAL CHEST: ??12/12/2010. INDICATION: ??Cough. ??Recent surgery. ???Infiltrate. COMPARISON: ??01/06/2010. FINDINGS: ??There is no interval change. ??In particular, the lungs remain clear. ?? The heart is mildly enlarged. ??Again noted are sternotomy wires. ?? Procedure Note Obie Quesada MD - 12/12/2010 EXAMINATION: PA AND LATERAL CHEST: 12/12/2010. INDICATION: Cough. Recent surgery. ?Infiltrate. COMPARISON: 01/06/2010. FINDINGS: There is no interval change. In particular, the lungs remainclear. The heart is mildly enlarged. Again noted are sternotomy wires. IMPRESSION IMPRESSION: No pneumonia or other interval change. Bernard Hinton MD IMG DX ORDERABLES documented in this encounter Visit Diagnoses Not on filedocumented in this encounter Care Teams Consultant Technology Relationship Specialty Start Date End Date Gianluca Nassar MD [address] [place] [address] PCP - General 08/19/10 07/18/15 documented as of this encounter
--- OUTSIDE RECORDS SUMMARY | 2024-05-18 15:18 | XMS_ITS | Encounter Summary ---
[place] [address] Care Team Providers Care Corporate Receptionist Name Role Phone Veronica Campbell APRN Primary Care Provider [phone] Reason for Referral * Consultation (Routine) - Closed Specialty Diagnoses / Procedures Referred By Contac t Referred To Contact Cardiology Diagnoses Atherosclerosis of coronary artery bypass graft(s) without angina pectoris Other forms of dyspnea Type 2 diabetes mellitus without complications CAD, dyspnea, DM type 2. * SCANNED DOCS Veronica Campbell APRN [address] [place] [address] [facility] [address] [place] [phone] Referral ID Status Reason Start Date Expiration Date V isits Requested Visits Authorized [id number] Closed Consult, Test & Treat PCP Updated and/or Approved 01/18/2022 01/18/2023 12 12 Encounter Details Date Type Department Care Team (Latest Contact Info) Description 01/18/2022 Transcribe Orders eDH Incoming Referrals [phone] Veronica Campbell APRN [address] [place], [place] [id number] Coronary artery disease, unspecified vessel or lesion type, unspecified whether angina present, unspecified whether tanana or transplanted heart; Other forms of dyspnea; Type 2 diabetes mellitus without complication, unspecified whether long term care phlebotomist insulin use Social History Tobacco Use Types [...] 2:00 PM EDT Office [place] [address] Bernard Linares MD [facility] [place] [address] 09/07/2024 3:00 PM EST Office Visit Dermatology at [address] [place] [address] Jeremiah Preston MD [facility] [address] [place] [address] Scheduled Referrals Name Type Priority Associated Diagnoses Orde r Schedule Referral to Cardiology Outpatient Referral Routine Coronary Artery Disease, Unspecified Vessel Or Lesion Type, Unspecified Whether Angina Present, Unspecified Whether Marshall Or Transplanted Heart Other Forms Of Dyspnea Type 2 Diabetes Mellitus Without Complication, Unspecified Whether Commercial Pest Control Technician Insulin Use Ordered: 01/18/2022 documented as of this encounter Visit Diagnoses Diagnosis Coronary artery disease, unspecified vessel or lesion type, unspecified whether angina present, unspecified whether tanana or transplanted heart Other forms of dyspnea Type 2 diabetes mellitus without complication, unspecified whether prison insulin use documented in this encounter Care Teams Corporate Receptionist Relationship Specialty Start Date End Date Veronica Campbell APRN [address] [place] [address] PCP - General Family Medicine 01/18/22 documented as of this encounter
--- OUTSIDE RECORDS SUMMARY | 2024-05-18 15:18 | XMS_ITS | Encounter Summary ---
Author Organization [facility] [place] [address] Care Team Providers Care Home Energy Auditor Name Role Phone Gianluca Nassar MD Primary Care Provider Encounter Details Date Type Department Care Team (Late st Contact Info) Description 12/10/2010 [place] [address] Leyla Obrien MD [facility] [address] [place] [address] Social History Tobacco Use Types Packs/Day Years [...] 2:00 PM EDT Office [place] [address] Bernard Linares MD [facility] [place] [address] 09/07/2024 3:00 PM EST Office Visit Dermatology at [facility] [address] [place] [phone] Jeremiah Preston MD [facility] [place] [address] Pending Results Name Type Priority Associated Diagnoses Date /Time FILM LIBRARY- STORAGE ONLY OR C-ARM Imaging Routine 12/10/2010 5:06 PM EDT documented as of this encounter Visit Diagnoses Not on filedocumented in this encounter Care Teams Home Energy Auditor Relationship Specialty Start Date End Date Gianluca Nassar MD [address] [place] [address] PCP - General 08/19/10 07/18/15 documented as of this encounter
--- OUTSIDE RECORDS SUMMARY | 2024-05-18 15:18 | XMS_ITS | Encounter Summary ---
Author Organization [facility] [place] [address] Care Team Providers Care Washer Meat Name Role Phone Gianluca Nassar MD Primary Care Provider [phone] Encounter Details Date Type Department Care Team (Late st Contact Info) Description 12/04/2010 1:00 PM EST Office [place] [address] Hi Velasco MD [facility] [place] [address] Discharge Disposition: Home Social History Tobacco Use [...] 2:00 PM EDT Office [place] [address] Bernard Linares MD [facility] [place] [address] 09/07/2024 3:00 PM EST Office Visit Dermatology at [facility] [address] [place] [address] Jeremiah Prestno MD [facility] [address] [place] [address] documented as of this encounter Procedures Procedure Name Priority Date/Time Associated Diagnosis Comments EKG 12-LEAD Routine 12/04/2010 3:34 PM EST documented in this encounter Results * EKG 12-LEAD (12/04/2010 3:34 PM EST) Ventricular rate 65 BPM MUSE SYSTEM Atrial Rate 65 BPM MUSE SYSTEM P-R Interval 136 ms MUSE SYSTEM QRS Duration 98 ms MUSE SYSTEM Q-T Interval 402 ms MUSE SYSTEM QTC Calculated (Bezet) 418 ms MUSE SYSTEM Calculated P Beau[place] 28 degrees MUSE SYSTEM Calculated R [place] -9 degrees MUSE SYSTEM Calculated T [place] 30 degrees MUSE SYSTEM INTERPRETATION Normal sinus rhythm Minimal voltage criteria for LVH, may be normal variant Cannot rule out 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) Abnormal ECG When compared with ECG of 06-JAN-2010 13:50, No significant change was found Confirmed by MD GIBSON, SARAH ([id number]) on 12/05/2010 5:58:23 PM MUSE SYSTEM 12/04/2010 3:34 PM EST 12/05/2010 5:58 PM EST Unknown ECG ORDERABLES MUSE SYSTEM documented in this encounter Visit Diagnoses Not on filedocumented in this encounter Care Teams Washer Meat Relationship Specialty Start Date End Date Gianluca Nassar MD [address] [place] [address] PCP - General 08/19/10 07/18/15 documented as of this encounter
[2024-05-18 21:40] LABS: Anion Gap 9.3 mmol/L (3-11); BUN 21 mg/dL (7-18); CO2 24.7 mmol/L (21.0-32.0); CREATININE 1.3 mg/dL (0.70-1.30); Calcium 9.7 mg/dL (8.5-10.1); Chloride 106 mmol/L (98-107); Estimated GFR 58.73 (mL/min/1.73m2); Glucose 154 mg/dL (74-106); Magnesium 1.5 mg/dL (1.8-2.4); Sodium 140 mmol/L (136-145)
== END 2024-05-18 15:10 | disposition home or self-care (01) ==
LOC: NCHCN 15:09
PROVIDERS: PCP Nurse Practitioner Family; Visit Provider Nurse Practitioner Family
DX: E83.42 Hypomagnesemia (principal); I10 Essential (primary) hypertension
CPT/HCPCS: 80048; 83735

== ENCOUNTER 2024-10-18 15:28 | Outpatient (REF) | payer MEDICARE, BC, SELFPAY ==
--- OUTSIDE RECORDS SUMMARY | 2024-10-18 15:31 | XMS_ITS | Encounter Summary ---
Author Organization [facility] Address [address] [place] [address] Care Team Providers Care Wildlife Biostation Research Ecologist Name Role Phone Gianluca Nassar MD Primary Care Provider Unavail able Encounter Details Date Type Department Care Team (Late st Contact Info) Description 06/02/2023 Lab Requisition [facility] Pathology & Laboratory Medicine - [facility] [address] [place], [place] [address] Outr Resulting Lab, Provider Social History Tobacco Use Types Packs/Day Years Used Date Smoking Tobacco: Never Assessed Sex and Gender Information Value Date Recorded Sex Assigned at Not on file Legal Sex Male 18:33 EST Gender Identity Not on file Sexual Orientation [...] Asim Lynn MD 06/04/2023 1227 06/04/2023 14:00 [facility] Blood VENOUS BLOOD / Unknown 06/01/2023 15:00 EDT 06/02/2023 17:15 EDT us Provider Outr Resulting Lab CHEMISTRY & BLOOD GA S ORDERABLES Final Result [facility] [address] [place] [address] * (ABNORMAL) SPEP, INCLUDES QUANTITATION OF MONOCLONAL SPIKE PERFORMABLE (06/01/2023 15:00 EDT) Albumin % 51.9(L) 55.8 - 66.1 % 06/04/2023 14:01 [facility] Albumin g/dL 3.9 3.6 - 5.2 g/dL 06/04/2023 14:01 [facility] Alpha-1 % 3.9 2.9 - 4.9 % 06/04/2023 14:01 [facility] Alpha-1 g/dL 0.30 0.15 - 0.40 g/dL 06/04/2023 14:01 [facility] Alpha-2 % 12.4(H) 7.1 - 11.8 % 06/04/2023 14:01 [facility] Alpha-2 g/dL 0.90 0.50 - 1.00 g/dL 06/04/2023 14:01 [facility] Beta % 14.2(H) 8.4 - 13.1 % 06/04/2023 14:01 [facility] Beta g/dL 1.10 0.60 - 1.20 g/dL 06/04/2023 14:01 [facility] Gamma % 17.6 11.1 - 18.8 % 06/04/2023 14:01 [facility] Gamma g/dL 1.30 0.60 - 1.60 g/dL 06/04/2023 14:01 [facility] SPEP Comment Suspicious pattern seen on protein electrophoresis, immunotyping added by reflex. 06/04/2023 14:01 EDT [facility] Comment:See scanned/suppleme ntary report. Total Protein 7.5 6.3 - 8.2 g/dL 06/04/2023 14:01 EDT [facility] Blood VENOUS BLOOD / Unknown 06/01/2023 15:00 EDT 06/02/2023 17:15 EDT us Provider Outr Resulting Lab CHEMISTRY & BLOOD GA S ORDERABLES Final Result Performing Organization Address [facility] de Phone Number [facility] [address] [place] [address] * PROTEIN, TOTAL (06/01/2023 15:00 EDT) Blood VENOUS BLOOD / Unknown 06/01/2023 15:00 EDT 06/02/2023 17:15 EDT us Provider Outr Resulting Lab CHEMISTRY & BLOOD GA S ORDERABLES Final Result Performing Organization Address [facility] Co de Phone Number [facility] [address] [place] [address] documented in this encounter Visit Diagnoses Not on filedocumented in this encounter Care Teams Wildlife Biostation Research Ecologist Relationship Specialty Start Date End Date Gianluca Nassar MD PCP - General 12/23/10 documented as of this encounter
--- OUTSIDE RECORDS SUMMARY | 2024-10-18 15:31 | XMS_ITS | Clinical Summary ---
Author Organization [facility] Address [address] [place] [address] Care Team Providers Care Case Resolution Specialist Name Role Phone Gianluca Nassar MD Primary Care Provider Unavail able Active Problems Problem Noted Date Diagnosed Date Coronary atherosclerosis 12/25/2010 Hypertensive disorder 12/25/2010 Hyperlipidemia 12/25/2010 Diabetes mellitus ([facility]) 12/25/2010 Gout 12/25/2010 Memory loss 12/25/2010 Social History Tobacco Use Types Packs/Day Years Used Date Smoking Tobacco: Never Assessed Sex and Gender Information Value Date Recorded Sex Assigned at Not on file Legal Sex Male 18:33 EST Gender Identity Not on file Sexual Orientation Not on file Plan of Treatment Health Maintenance Due Date Last Done Comments Hepatitis C Screen 1955 Fall Risk Screening 2018 COVID-19 Vaccine ( season) 2024 RSV Immunization ( o r 60+ Years) (1 - 1-dose 75+ series) 2028 Care Teams Case Resolution Specialist Relationship Specialty Start Date End Date Gianluca Nassar MD PCP - General 12/23/10
--- OUTSIDE RECORDS SUMMARY | 2024-10-18 15:31 | XMS_ITS | Referral Summary ---
Author Organization [facility] Address [address] [place] [address] Care Team Providers Care Assistant Education Director Name Role Phone Gianluca Nassar MD Primary Care Provider Unavail able Active Problems Problem Noted Date Diagnosed Date Coronary atherosclerosis 12/25/2010 Hypertensive disorder 12/25/2010 Hyperlipidemia 12/25/2010 Diabetes mellitus ([facility]) 12/25/2010 Gout 12/25/2010 Memory loss 12/25/2010 Social History Tobacco Use Types Packs/Day Years Used Date Smoking Tobacco: Never Assessed Sex and Gender Information Value Date Recorded Sex Assigned at Not on file Legal Sex Male 18:33 EST Gender Identity Not on file Sexual Orientation Not on file Plan of Treatment Not on file Care Teams Assistant Education Director Relationship Specialty Start Date End Date Gianluca Nassar MD PCP - General 12/23/10
--- OUTSIDE RECORDS SUMMARY | 2024-10-18 15:31 | XMS_ITS | Continuity of Care Document ---
Author Organization [facility] Address [address] [place] [id number] Care Team Providers Care Blanket Washer Name Role Phone MALIA MACK Primary Care Physician Encounter LTTL_CT FIN NBR [id number] Date(s): 06/27/24 - 06/27/24 [facility] [address] [place] [address]- [place] Encounter Diagnosis Hives(Discharge Diagnosis) - 06/27/24 Discharge Disposition: Home or Self Care Attending Physician: Paulie Trujillo MD Admitting Physician: Paulie Trujillo MD Allergies, Adverse Reactions, Alerts Substance Criticality Severity Reaction Reaction Severity Status meperidine High criticality Moderate Stomach upset Active morphine High criticality Moderate Stomach upset Active Flagyl 1 Low criticality Mild Rash Acti ve 1colchicine Assessment and Plan Extracted from: Title:ED Provider Note Author:ABY Swann RN Date:06/27/24 Assessment/Plan 1.??Hives??L50.9 Ordered: nystatin 100,000 units/g topical ointment, 1 eli, Topical, QID, X 21 days, # 30 g, 0 Refill(s), 07/18/24 14:56:00 EDT, Pharmacy: [facility], 178, cm, 06/27/24 14:09:00 EDT, Height, 98, kg, 06/27/24 14:15:00 EDT, Weight Dosing predniSONE 10 mg oral tablet, See Instruction, Oral, Daily, 4 tabs daily x3 days, 3 tabs daily x3 days, 2 tabs daily x3 days, 1 tab daily x3 days, X 12 days, # 30 tab, 0 Refill(s), 07/09/24 15:03:00 EDT, Pharmacy: [facility], 178, cm, 06/27/24 14:09:00 EDT, Height, 98, kg, 1... ?? Patient Education Hives Future Appointments Medications acetaminophen 650 mg oral [...] 0 Refill(s) Start Date: 03/09/23 Status: Ordered nystatin 100,000 units/g topical ointment 1 eli, Topical, QID, X 21 days, # 30 g, 0 Refill(s), 07/18/24 1:56:00 PM CDT, Pharmacy: [facility], 178, cm, 06/27/24 14:09:00 EDT, Height, 98, kg, 06/27/24 14:15:00 EDT, Weight Dosing Start Date: 06/27/24 Stop Date: 07/18/24 Status: Ordered predniSONE 10 mg oral tablet See Instruction, Oral, Daily, 4 tabs daily x3 days, 3 tabs daily x3 days, 2 tabs daily x3 days, 1 tab daily x3 days, X 12 days, # 30 tab, 0 Refill(s), 07/09/24 2:03:00 PM CDT, Pharmacy: [facility], 178, cm, 06/27/24 14:09:00 EDT, Height, 98, kg, 06/27/24 14:15:00 EDT, Weight Dosing Start Date: 06/27/24 Stop Date: 07/09/24 Status: Ordered PriLOSEC 0 Refill(s) Start Date: 02/21/24 Status: Ordered tadalafil 5 mg =, Oral, every night at bedtime, 0 Refill(s) Start Date: 12/01/22 Status: Ordered Vascepa 1 g oral capsule 0 Refill(s) Start Date: 02/21/24 Status: Ordered Mental Status 06/27/24 Eye Opening Response Shalonda Spontaneous ly Best Verbal Response [place] Oriented Best Motor Response Shalonda Obeys comman ds [place] Coma Score 15 Problem List Condition Confirmation [...] Most recent to oldest [Reference Range]: 1 Temperature Temporal Artery [36-38 Deg C ] 36.5 Deg C (06/27/24 2:09 PM) Heart Rate Monitored [60-100 bpm] 73 bpm (06/27/24 2:09 PM) Respiratory Rate [12-24 br/min] 20 br/mi n (06/27/24 2:09 PM) Blood Pressure [90-120/60-80 mmHg] 150/7 9mmHg *HI* (06/27/24 2:09 PM) Mean Arterial Pressure, Cuff [65-140 mmH g] 103 mmHg (06/27/24 2:09 PM) Weight 98 kg (06/27/24 2:09 PM) Weight Dosing 98.000 kg (06/27/24 2:09 PM) Height 178 cm (06/27/24 2:09 PM) Body Mass Index 30.93 kg/m2 (06/27/24 2:09 PM) Social History Social History Type Response Tobacco Former tobacco user Tobacco Use:. 15 year(s). 1 Sex Male Sex Representation Male (finding) 1Quit in 1980 Implantable Device List Procedure Provider Procedure Date Device Type Site Arthroscopy, shoulder, diagnostic, with or without synovial biopsy (separate procedure) Fredo Douglas MD 02/25/23 Non Biological Should er R Device Identifier Serial Number Lot or Batch Number Manufacturing Date Expiration Date Distinct Identification Code MRI Safety Implantable Status Assigning Authority Unknown Unknown [id number] Unknown 10/26/25 Unknown Unknown Active Unk nown Unknown Unknown [id number] Unknown 12/24/26 Unknown Unknown Active Unk nown Hospital Discharge Instructions Patient Education 06/27/2024 13:57:37 Hives Hives Hives (urticaria) are itchy, red, swollen areas on the skin. Hives can appear on any part of the body. Hives often fade within 24 hours (acute hives). Sometimes, new hives appear after old ones fade and the cycle can continue for several days or weeks (chronic hives). Hives do not spread from person to person (are not contagious). Hives come from the body's reaction to something a person is allergic to (allergen), something thatcauses irritation, or various other triggers. When a person is exposed to a trigger, his or her body releases a chemical (histamine) that causes redness, itching, and swelling. Hives can appear rightafter exposure to a trigger or hours later. What are the causes? This condition may be caused by: ??? Allergies to foods or ingredients. ??? Insect bites or stings. ??? Exposure to pollen or pets. ??? Spending time in sunlight, heat, or cold (exposure). ??? Exercise. ??? Stress. You can also get hives from other medical conditions and treatments, such as: ??? Viruses, including the common cold. ??? Bacterial infections, such as urinary tract infections and strep throat. ??? Certain medicines. ??? Contact with latex or chemicals. ??? Allergy shots. ??? Blood transfusions. Sometimes, the cause of this condition is not known (idiopathic hives). What increases the risk? You are more likely to develop this condition if you: ??? Are a woman. ??? Have food allergies, especially to citrus fruits, milk, eggs, peanuts, tree nuts, or shellfish. ??? Are allergic to: ??? Medicines. ??? Latex. ??? Insects. ??? Animals. ??? Pollen. What are the signs or symptoms? Common symptoms of this condition include raised, itchy, red or white bumps or patches on your skin. These areas may: ??? Become large and swollen (welts). ??? Change in shape and location, quickly and repeatedly. ??? Be separate hives or connect over a large area of skin. ??? Sting or become painful. ??? Turn white when pressed in the center (davin). In severe cases, your hands, feet, and face may also become swollen. This may occur if hives develop deeper in your skin. How is this diagnosed? This condition may be diagnosed by your symptoms, medical history, and physical exam. ??? Your skin, urine, or blood may be tested to find out what is causing your hives and to rule outother health issues. ??? Your health care provider may also remove a small sample of skin from the affected area and examine it under a microscope (biopsy). How is this treated? Treatment for this condition depends on the cause and severity of your symptoms. Your health care provider may recommend using cool, wet cloths (cool compresses) or taking cool showers to relieve itching. Treatment may include: ??? Medicines that help: ??? Relieve itching (antihistamines). ??? Reduce swelling (corticosteroids). ??? Treat infection (antibiotics). ??? An injectable medicine (omalizumab). Your health care provider may prescribe this if you have chronic idiopathic hives and you continue to have symptoms even after treatment with antihistamines. Severe cases may require an emergency injection of adrenaline (epinephrine) to prevent a life-threatening allergic reaction (anaphylaxis). Follow these instructions at home: Medicines ??? Take and apply wljm-ogz-ysqkzbm and prescription medicines only as told by your health care provider. ??? If you were prescribed an antibiotic medicine, take it as told by your health care provider. Donot stop using the antibiotic even if you start to feel better. Skin care ??? Apply cool compresses to the affected areas. ??? Do not scratch or rub your skin. General instructions ??? Do not take hot showers or baths. This can make itching worse. ??? Do not wear tight-fitting clothing. ??? Use sunscreen and wear protective clothing when you are outside. ??? Avoid any substances that cause your hives. Keep a journal to help track what causes your hives. Write down: ??? What medicines you take. ??? What you eat and drink. ??? What products you use on your skin. ??? Keep all follow-up visits as told by your health care provider. This is important. Contact a health care provider if: ??? Your symptoms are not controlled with medicine. ??? Your joints are painful or swollen. Get help right away if: ??? You have a fever. ??? You have pain in your abdomen. ??? Your tongue or lips are swollen. ??? Your eyelids are swollen. ??? Your chest or throat feels tight. ??? You have trouble breathing or swallowing. These symptoms may represent a serious problem that is an emergency. Do not wait to see if the symptoms will go away. Get medical help right away. Call your local emergency services (911 in the [place] Do not drive yourself to the hospital. Summary ??? Hives (urticaria) are itchy, red, swollen areas on your skin. Hives come from the body's reaction to something a person is allergic to (allergen), something that causes irritation, or various other triggers. ??? Treatment for this condition depends on the cause and severity of your symptoms. ??? Avoid any substances that cause your hives. Keep a journal to help track what causes your hives. ??? Take and apply msni-gxi-bfefjra and prescription medicines only as told by your health care provider. ??? Get help right away if your chest or throat feels tight or if you have trouble breathing or swallowing. This information is not intended to replace advice given to you by your health care provider. Make sure you discuss any questions you have with your health care provider. Document Revised: 01/27/2023 Document Reviewed: 11/02/2021 Else[employer] Patient Education ?? 2022 [employer] Physician Emergency department Note * Cori L Gabe, AP PROCESSOR: PERFORM Event Display: ED Note Physician Authored Date: [id number] CHRISTY RAINEY :1955 Age:69 years Sex:Male Visit Date:06/27/2024 Primary Care Physician: MALIA MACK Basic Information Time Seen: Princess Bernal, CHRISTEL / 06/27/2024 14:02 Chief Complaint Hives on arms, waist and around eyes - thinks it might be spiders at camp. POC gluc 162. no meds taken prior to arrival, does not take insulin, had a yeast inection 1 wk ago and is taking fluconizole for it History Of Present Illness: Patient is a 69-year-old male who presents today with a chief complaint??of intermittent hives. ??He reports??itchy??urticaria that initiated??on the left inner arm, states that he has noted some along his trunk.?He denies any known exposure, denies any recent illnesses, does??think that he may have a??exposed to some insect at his camp.?? States that he has had??2 episodes??over the past few years where he would break out in hives, with facial swelling, never had wheezing, shortness of breath or anaphylaxis. Review of Systems: see hpi Physical Exam Vitals & Measurements T:??36.5?C ??(Temporal Artery)?? HR:??73??(Monitored)?? RR:??20?? BP:??150/79?? SpO2:??98%?? HT:??178??cm?? WT:??98??kg?? BMI:??30.93?? O2 Therapy:??Room air?? Skin: 2 to 3 cm??erythematous wheals to the left inner??arm, lower abdomen. Head: Normal cephalic without trauma or injury. Neck: Supple, nontender, normal range of motion Eye: Pupils reactive. ??Conjunctiva clear. Sclera nonicteric. ??No swelling, obvious foreign bodies. ??Extraocular movement intact. ENT ear: Normal external, canal clear, TMs normal bilaterally. ??Nose: No discharge, normal mucosa,no swelling. ??Sinuses: Nontender to percussion. ??Oropharynx: Normal external, mucosal without mass, lesions, ulcerations. ??Dentition is intact. ??Tonsils not enlarged. ??No erythema, exudate, lesions, uvula midline. Cardiovascular: Regular rate and rhythm. ??No murmur, rubs, or gallops. Respiratory: Clear to auscultation bilaterally. ??No wheezes, rales, rhonchi. ?? Medical Decision Making: Patient was evaluated for reports of rash, he reports that he has had this??in the past with no known trigger, states that he occasionally has gotten hives??and has experienced??it creeping into his ears??and causing some facial swelling.?? We did discuss??different reasonings for rash, can be an au toimmune??issue or some sort of??exposure/irritant. ??We did discuss as he is??getting this more routinely??allergy testing would be appropriate.?? Starting??steroid coverage, he is diet controlled diabetic, refuses to take insulin, I did encourage him to monitor his blood sugar closely??with the un derstanding that steroid usage will increase his blood sugar. ??He also states he has??a chronic??intertrigo/yeast/fungal??issue, he was provided nystatin for this??preemptively. ??I did recommend that he reach out to his primary care for recheck. ??I discussed that I would send referral to ENT forallergy testing for him.?? Strict return precautions were provided Procedure No Qualifying Data Assessment/Plan 1.??Hives??L50.9 Ordered: nystatin 100,000 units/g topical ointment, 1 eli, Topical, QID, X 21 days, # 30 g, 0 Refill(s), 07/18/24 14:56:00 EDT, Pharmacy: [facility], 178, cm, 06/27/24 14:09:00 EDT, Height, 98, kg, 06/27/24 14:15:00 EDT, Weight Dosing predniSONE 10 mg oral tablet, See Instruction, Oral, Daily, 4 tabs daily x3 days, 3 tabs daily x3 days, 2 tabs daily x3 days, 1 tab daily x3 days, X 12 days, # 30 tab, 0 Refill(s), 07/09/24 15:03:00 EDT, Pharmacy: [facility], 178, cm, 06/27/24 14:09:00 EDT, Height, 98, kg, 1... ?? Patient Education Hives Medication Reconciliation New Prescription nystatin topical (nystatin 100,000 units/g topical ointment)1 Application Topical (on the skin) 4 times a day for 21 Days. Refills: 0. ?? predniSONE (predniSONE 10 mg oral tablet)See Instruction Oral (given by mouth) every day for 12 Days. 4 tabs daily x3 days, 3 tabs daily x3 days, 2 tabs daily x3 days, 1 tab daily x3 days. Refills: 0. ?? Unchanged acetaminophen (acetaminophen 650 [...] icosapent (Vascepa 1 g oral capsule) ?? [id number] Micrograms. ?? losartan (losartan 50 mg oral tablet)1 tab Oral (given by mouth) every day. ?? melatonin (melatonin 5 mg oral tablet)1 tab Oral (given by mouth) every night at bedtime as needed as needed for insomnia. ?? metFORMIN (metFORMIN 1000 mg oral tablet)1 tab Oral (given by mouth) 2 times a day. ?? [id number] Milligrams Oral (given by mouth) every 8 [...] on foot or toes Medication Administration Given Benadryl, 50 mg, Oral Allergies meperidine??(Stomach upset) morphine??(Stomach upset) Flagyl??(Rash) Social History Alcohol Current, 1-2 times per month Electronic Cigarette/Vaping Electronic Cigarette Use: Never. Substance Use Never Tobacco Former tobacco user Tobacco Use:. 13 year(s).- Comments: Quit in 1980 Family History Arthritis: Mother. Diabetes mellitus: Grandmother (M). Heart attack: Father. Rheumatoid arthritis: Mother. Referral Orders Referral Management, Medical Service: ENT, Reason: recurrent rash/urticaria, Start: 06/27/24 Electronically Signed on 06/27/2024 19:16 EDT Princess Bernal APRN Emergency department Discharge instructions * Princess Bernal APRN: PERFORM Event Display: ED Discharge Information Authored Date: [id number] CHRISTY RAINEY :1955 Age:69 years Sex:Male Visit Date:06/27/2024 Primary Care Physician: MALIA MACK Discharge Instructions We would like to thank you for allowing us to assist you with your healthcare needs. The following includes patient education materials and information regarding your injury/illness. Diagnosis from Today's Visit Hives Discharge Vitals Temperature??(Temporal Artery) 97.7 ??F (36.5 ??C) Heart Rate??(Monitored) 73 Respiratory Rate?? 20 Blood Pressure?? 150/79?? SpO2?? 98% Height?? 70.08 in (178 cm) Weight?? 216.09 lb (98 kg) BMI?? 30.93 Allergies meperidine??(Stomach upset) morphine??(Stomach upset) Flagyl??(Rash) What to Do Next Instructions from Your Care Team I would recommend continuing??a??antihistamine or allergy medication such as Benadryl, Zyrtec or??Claritin. ??You been provided a dose of Benadryl here,??should not be repeated for another??6 hours. ??It may cause sleepiness or drowsiness. ??I would recommend??starting the steroid course if you??note worsening signs or symptoms, you should seek urgent or emergent care. You were treated today on an emergency [...] Much When Why Instructions Next Dose New nystatin topical (nystatin 100,000 units/ g topical ointment) 1 Application Topical (on the skin) 4 times a day Hives Duration: 21 Days Pickup at [facility] Unchanged acetaminophen (acetaminophen 650 mg oral [...] mouth) Every night at bedtime Pharmacy Information [facility]: [address] [place], [place] [id number] [phone] Education Materials Hives Hives (urticaria) are itchy, red, swollen areas on the skin. Hives can appear on any part of the body. Hives often fade within 24 hours (acute hives). Sometimes, new hives appear after old ones fade and the cycle can continue for several days or weeks (chronic hives). Hives do not spread from person to person (are not contagious). Hives come from the body's reaction to something a person is allergic to (allergen), something thatcauses irritation, or various other triggers. When a person is exposed to a trigger, his or her body releases a chemical (histamine) that causes redness, itching, and swelling. Hives can appear rightafter exposure to a trigger or hours later. What are the causes? This condition may be caused by: ? Allergies to foods or ingredients. ? Insect bites or stings. ? Exposure to pollen or pets. ? Spending time in sunlight, heat, or cold (exposure). ? Exercise. ? Stress. You can also get hives from other medical conditions and treatments, such as: ? Viruses, including the common cold. ? Bacterial infections, such as urinary tract infections and strep throat. ? Certain medicines. ? Contact with latex or chemicals. ? Allergy shots. ? Blood transfusions. Sometimes, the cause of this condition is not known (idiopathic hives). What increases the risk? You are more likely to develop this condition if you: ? Are a woman. ? Have food allergies, especially to citrus fruits, milk, eggs, peanuts, tree nuts, or shellfish. ? Are allergic to: ? Medicines. ? Latex. ? Insects. ? Animals. ? Pollen. What are the signs or symptoms? Common symptoms of this condition include raised, itchy, red or white bumps or patches on your skin. These areas may: ? Become large and swollen (welts). ? Change in shape and location, quickly and repeatedly. ? Be separate hives or connect over a large area of skin. ? Sting or become painful. ? Turn white when pressed in the center (davin). In severe cases, your hands, feet, and face may also become swollen. This may occur if hives develop deeper in your skin. How is this diagnosed? This condition may be diagnosed by your symptoms, medical history, and physical exam. ? Your skin, urine, or blood may be tested to find out what is causing your hives and to rule out other health issues. ? Your health care provider may also remove a small sample of skin from the affected area and examineit under a microscope (biopsy). How is this treated? Treatment for this condition depends on the cause and severity of your symptoms. Your health care provider may recommend using cool, wet cloths (cool compresses) or taking cool showers to relieve itching. Treatment may include: ? Medicines that help: ? Relieve itching (antihistamines). ? Reduce swelling (corticosteroids). ? Treat infection (antibiotics). ? An injectable medicine (omalizumab). Your health care provider may prescribe this if you have chronic idiopathic hives and you continue to have symptoms even after treatment with antihistamines. Severe cases may require an emergency injection of adrenaline (epinephrine) to prevent a life-threatening allergic reaction (anaphylaxis). Follow these instructions at home: Medicines ? Take and apply osgs-ico-lhrbdgl and prescription medicines only as told by your health care provider. ? If you were prescribed an antibiotic medicine, take it as told by your health care provider. Do notstop using the antibiotic even if you start to feel better. Skin care ? Apply cool compresses to the affected areas. ? Do not scratch or rub your skin. General instructions ? Do not take hot showers or baths. This can make itching worse. ? Do not wear tight-fitting clothing. ? Use sunscreen and wear protective clothing when you are outside. ? Avoid any substances that cause your hives. Keep a journal to help track what causes your hives. Write down: ? What medicines you take. ? What you eat and drink. ? What products you use on your skin. ? Keep all follow-up visits as told by your health care provider. This is important. Contact a health care provider if: ? Your symptoms are not controlled with medicine. ? Your joints are painful or swollen. Get help right away if: ? You have a fever. ? You have pain in your abdomen. ? Your tongue or lips are swollen. ? Your eyelids are swollen. ? Your chest or throat feels tight. ? You have trouble breathing or swallowing. These symptoms may represent a serious problem that is an emergency. Do not wait to see if the symptoms will go away. Get medical help right away. Call your local emergency services (911 in the [place] Do not drive yourself to the hospital. Summary ? Hives (urticaria) are itchy, red, swollen areas on your skin. Hives come from the body's reaction to something a person is allergic to (allergen), something that causes irritation, or various other triggers. ? Treatment for this condition depends on the cause and severity of your symptoms. ? Avoid any substances that cause your hives. Keep a journal to help track what causes your hives. ? Take and apply ywlj-mqj-vialgeg and prescription medicines only as told by your health care provider. ? Get help right away if your chest or throat feels tight or if you have trouble breathing or swallowing. This information is not intended to replace advice given to you by your health care provider. Make sure you discuss any questions you have with your health care provider. Document Revised: 01/27/2023 Document Reviewed: 11/02/2021 [employer] Patient Education ?? 2022 [employer] Patient/Coding Validator Signature Patient Name:CHRISTY RAINEY I have received this information and my questions have been answered. Patient/Coding Validator Name: Patient/Coding Validator Signature: Relationship to Patient: Witness Name/Signature: Date: Electronically Signed on: 06/27/2024 14:58 EDTSigned by:VALERIA Patient Care team information Care Team Personnel Name: MALIA MACK Position: No Access Member Role: Primary Care Physician Address: [address] Care Team Related Persons Name: OSITO RAINEY Name: OSITO RAINEY Insurance Providers Guarantor name: CHRISTY RAINEY Health Plan Information #: 2 Payer: [facility] Member Number: [id number] Policy Number: EMA Health Plan Information #: 1 Payer: MEDICARE [employer] [facility] Member Number: [id number] Policy Number: EMA
--- OUTSIDE RECORDS SUMMARY | 2024-10-18 15:31 | XMS_ITS | Continuity of Care Document ---
Author Organization [facility] Address [address] [place] [address] Care Team Providers Care Assembler Final Name Role Phone MALIA MACK Primary Care Physician Encounter [id number] FIN NBR [id number] Date(s): 08/15/24 - 08/15/24 [facility] [address] [place] [address]- [place] Discharge Disposition: Home or Self Care Attending Physician: ALEX VICENTE MD Admitting Physician: ALEX VICENTE MD Referring Physician: MALIA MACK Allergies, Adverse Reactions, Alerts Substance Criticality Severity Reaction Reaction Severity Status meperidine High criticality Moderate Stomach upset Active colchicine Unable to assess criticality Unknown Active celecoxib Unable to assess criticality Unknown Active Flagyl 1 Low criticality Mild Rash Acti ve morphine High criticality Moderate Stomach upset Active 1colchicine Assessment and Plan Future Appointments Medications acetaminophen 650 mg oral tablet, extended release 1,300 mg = 2 tab, Oral, every 8 hr, PRN as needed for pain, # 84 tab, 0 Refill(s), Pharmacy: [facility], 178, cm, 02/23/23 11:05:00 [...] BID, # 28 cap, 0 Refill(s), Pharmacy: [facility], 178, cm, 02/23/23 11:05:00 [...] 0 Refill(s) Start Date: 02/21/24 Status: Ordered Problem List Condition Confirmation Course [...] Most recent to oldest [Reference Range]: 1 Weight 100 kg (08/14/24 2:02 PM) Weight Dosing 100.000 kg (08/14/24 2:02 PM) Height 178 cm (08/14/24 2:02 PM) Social History Social History Type Response Tobacco Former tobacco user Tobacco Use:. 15 year(s). 1 Sex Male Sex Representation Male (finding) 1Quit in 1980 Implantable Device List Procedure Provider Procedure Date Device Type Site Arthroscopy, shoulder, diagnostic, with or without synovial biopsy (separate procedure) Fredo oDuglas MD 02/25/23 Non Biological Should er R Device Identifier Serial Number Lot or Batch Number Manufacturing Date Expiration Date Distinct Identification Code MRI Safety Implantable Status Assigning Authority Unknown Unknown [id number] Unknown 10/26/25 Unknown Unknown Active Unk nown Unknown Unknown [id number] Unknown 12/24/26 Unknown Unknown Active Unk nown Patient Care team information Care Team Personnel Name: MALIA MACK Position: No Access Member Role: Primary Care Physician Address: [address] [address]- Care Team Related Persons Name: OSITO RAINEY Name: OSITO RAINEY Insurance Providers Guarantor name: CHRISTY RAINEY Health Plan Information #: 1 Payer: [facility] Member Number: [id number] Policy Number: NA Health Plan Information #: 2 Payer: [facility] Member Number: [id number] Policy Number: NA
--- OUTSIDE RECORDS SUMMARY | 2024-10-18 15:32 | XMS_ITS | Encounter Summary ---
[place] [address] Care Team Providers Care Software Testing Specialist Name Role Phone Veronica Campbell CHRISTEL Primary Care Provider [phone] Reason for Referral * Diagnostic Test (Routine) - Closed Specialty Diagnoses / Procedures [facility] To Contact Radiology Diagnoses Mediastinal adenopathy Multiple lung nodules on CT Procedures CT Chest wo Contrast (Generic) Paulie Velazquez MD [facility] [place] [address] [facility] [place] [address] Referral ID Status Reason Start Date Expiration Date V isits Requested Visits Authorized [id number] Closed Specialty Service Requested 08/02/2023 01/30/2025 1 1 Reason for Visit * Diagnostic Test (Routine) - Closed Specialty Diagnoses / Procedures [facility] Referred To Contact Radiology Diagnoses Mediastinal adenopathy Multiple lung nodules on CT Procedures CT Chest wo Contrast (Generic) Paulie Velazquez MD [facility] [place] [place] [address] [facility] [place] [address] Referral ID Status Reason Start Date Expiration Date V isits Requested Visits Authorized [id number] Closed Specialty Service Requested 08/02/2023 01/30/2025 1 1 Encounter Details Date Type Department Care Team (Latest Contact Info) Description 01/26/2024 2:29 PM EDT - 01/26/2024 11:59 PM EDT Hospital Encounter CT Scan at [facility] [place] [address] Paulie Velazquez MD [facility] [place] [place] [address] Mediastinal adenopathy; Multiple lung nodules on CT [...] Sig Dispensed Refills Start Date End Date omeprazole (PriLOSEC) [address] capsule Take 20 mg by mouth daily. Magnesium Chloride [address] tablet Take 2 tablets by mouth every morning. tadalafiL (Cialis) 5 mg tablet Take 5 [...] by mouth daily. 07/16/2023 FreeStyle Elma 2 Kiana MiscIndications:diabetes mellitus 1 each by Other route daily. Indications: diabetes 1 each 08/03/2022 FreeStyle Elma 2 Sensor KitIndications:diabetes mellitus 1 each by Other route daily. Indications: diabetes 6 kit 3 08/03/2022 icosapent ethyL (Vascepa) 1 gram CapsuleIndications:Coron roc artery disease, unspecified vessel or lesion type, unspecified whether angina present, unspecified whether [place] or transplanted heart Take 2 capsules by [...] mouth 2 times daily (with meals). 12/12/2010 documented as of this encounter Plan of Treatment Upcoming Encounters Date Type Department Care Team (Late st Contact Info) Description 11/09/2024 10:40 AM EST Office Visit Cardiology at [address] [address] Pablito Hunt MD [facility] [place] [address] 03/20/2025 3:00 PM EDT Office Visit Dermatology at [address] [place] [address] Jeremiah Preston MD [facility] DR [facility] [facility] [address] documented as of this encounter Procedures Procedure Name Priority Date/Time Associated Diagnosis Comments CT CHEST WO CONTRAST (GENERIC) Routine 01/26/2024 2:35 PM EDT Mediastinal adenopathy Multiple lung nodules on CT documented in this encounter Results * CT Chest wo Contrast (Generic) (01/26/2024 2:35 PM EDT) WORKSTATION ID [id number] RAD Anatomical Region Laterality Modality Chest Computed [...] who have questions please contact the health home care nurse that requested your imaging first. ? Narrative [...] patients who have questions please contactthe health home care nurse that requested your imaging first. Paulie Velazquez MD IMG CT ORDERABL documented in this encounter Visit Diagnoses Diagnosis Mediastinal adenopathy Enlargement of lymph nodes Multiple lung nodules on CT documented in this encounter Care Teams Software Testing Specialist Relationship Specialty Start Date End Date Veronica Campbell APRN [address] [place] [address] PCP - General Family Medicine 01/18/22 documented as of this encounter
--- OUTSIDE RECORDS SUMMARY | 2024-10-18 15:32 | XMS_ITS | Encounter Summary ---
Author Organization [facility] Address [facility] [place] [address] Care Team Providers Care Prop Attendant Name Role Phone Adrian Veronica CHRISTEL Primary Care Provider [phone] Encounter Details Date Type Department Care Team (Latest Contact Info) Description 08/15/2024 3:00 PM EST Ext Surgery or Single Event [address] [place] [address] Higinio Penny MD [facility] [place] [address] Dyspnea, unspecified type Social History Tobacco Use [...] from your doctor or pharmacy? Rarely 04/19/2024 [facility] Utilities Answer Date Recorded In the [...] money to buy more. Never true 04/19/20 Within the past 12 months, t he [...] any time in the past 12 m [facility], were you homeless or living in a half-way (including now)? No 04/19/2024 Sex and Gender Information Value Date Recorded Sex Assigned at Not on file Gender Identity Not on file Sexual Orientation Not on file documented as of this encounter Progress Notes * Higinio Penny MD - 08/15/2024 3:00 PM EST Exercise Stress Test- Final Report Conrad Alba Vera : 1955 [facility] Referring: Young Indication: Dyspnea Date: 08/16/2024 Details: Medication: none pertinent Risk Factors: Hx CAD Resting EKG: NSR, ivcd, Resting HR 69; Resting BP 182/102 Summary: Max Exercise: Time: 5:40 Stage: II Gonsalo METs: 7.1 Max HR: 134 (representing 89% of MPHR) Max BP: 258/87 RPP: 34.5k HR Deceleration: low normal Ischemia?: non diagnostic strain pattern in lateral leads Arrhythmias?: none Reason for Termination: HTN. Patient was also experiencing objective dyspnea IMPRESSION: 1) In setting of known history of ASCVD, this study (non-imaging exercise tolerance test) does not affect the pre-test probability for obstructive CAD 2) Intermediate risk (DTS + 5). EKG changes felt more suggestive of hypertension-related changes/strain 3) Exercise limited due to resting hypertension with superimposed hypertensive response to exercise. Advise reviewing blood pressure management. Electronically Signed: Higinio Penny MD, 08/16/2024 9:53 AM documented in this encounter Plan of Treatment Upcoming Encounters Date Type Department Care Team (Late st Contact Info) Description 11/09/2024 10:40 AM EST Office Visit Cardiology at [address] [address] Pablito Hunt MD [facility] [place] [address] 03/20/2025 3:00 PM EDT Office Visit Dermatology at [facility] [address] [place] [address] Jeremiah Preston MD [facility] [address] [place] [address] documented as of this encounter Procedures Procedure Name Priority Date/Time Associated Diagnosis Comments STRESS TEST SCAN 08/15/2024 12:0 0 AM EST documented in this encounter Results * Scan Doc: Stress Test (08/15/2024 12:00 AM EST) Anatomical Region Laterality Modality Other Narrative 08/15/2024 12:00 AM EST Ordered by an unspecified provider. Scanning Provider MEDIA MGR SCAN EXT O RDR/RSLT documented in this encounter Visit Diagnoses Diagnosis Dyspnea, unspecified type documented in this encounter Care Teams Prop Attendant Relationship Specialty Start Date End Date Veronica Campbell APRN [address] [place] [address] PCP - General Family Medicine 01/18/22 documented as of this encounter
--- OUTSIDE RECORDS SUMMARY | 2024-10-18 15:32 | XMS_ITS | Encounter Summary ---
Author Organization [facility] Address [address] [place] [address] Care Team Providers Care 911 Dispatcher Name Role Phone Unavailable Primary Care Provider Unavailabl e Encounter Details Date Type Department Care Team (Late st Contact Info) Description 04/29/2006 Results Only [facility] - Maple conversion [address] [place] [address] Jin Tomas DO [facility] [place] [address] Social History Tobacco Use Types Packs/Day Years [...] when reading/interpreti ng unformatted reports. Name: ? CORNAD VERA ? Accession #: ? [id number] ? : ? 1955 (Age: 51) ??M [...] in consultation. No atypia is seen. (Dr. Sandoval)/[facility] Document reviewed and electronically [...] ??Serial sectioning reveals homogeneous yellow adipose tissue. ??Marine Oiler sections are submitted as (A1) to (A3). (Dr. Ariane Garza-)/[place] End of Report DARWIN CARABALLO 04/29/2006 04/30/2006 15: 36 EDT us Jin Tomas DO PATHOLOGY ORDERABLES Glory kruger Result DARWIN CARABALLO [address] [place] [address] documented in this encounter Visit Diagnoses Not on filedocumented in this encounter
--- OUTSIDE RECORDS SUMMARY | 2024-10-18 15:32 | XMS_ITS | Encounter Summary ---
Author Organization [facility] Address [address] [place] [address] Care Team Providers Care Pharmacology Associate Name Role Phone Gianluca Nassar MD Primary Care Provider Unavail able Encounter Details Date Type Department Care Team (Late st Contact Info) Description 05/27/[address] [facility] Pathology & Laboratory Medicine - [address] [id number] Outr Resulting Lab, Provider Social History Tobacco [...] Factor <8.6 <12.0 IU/mL 05/27/2023 19:56 EDT [facility] Blood VENOUS BLOOD / Unknown 05/26/2023 14:45 EDT 05/27/2023 19:35 EDT us Provider Outr Resulting Lab CHEMISTRY & BLOOD GA S ORDERABLES Final Result Performing Organization Address [facility] Co de Phone Number [facility] [address] [place] [address] * (ABNORMAL) ANTI NUCLEAR AB (CAITLYN), IFA (05/26/2023 14:45 EDT) CAITLYN Interpretation Positive(A) Negative 05/28/2023 16:48 EDT [facility] CAITLYN Titer and Pattern 1 1:80 Speckled 05/28/2023 16:48 EDT [facility] Blood VENOUS BLOOD / Unknown 05/26/2023 14:45 EDT 05/27/2023 19:35 EDT Narrative [facility] - 05/28/2023 16:48 EDT Results were obtained with the INOVA NOVA Lite HEp-2 CAITLYN Kit by indirect immunofluorescence. us Provider Outr Resulting Lab IMMUNOLOGY AND SEROL OGY ORDERABLES Final Result Performing Organization Address [facility] Co de Phone Number [facility] [address] [place] [address] documented in this encounter Visit Diagnoses Not on filedocumented in this encounter Care Teams Pharmacology Associate Relationship Specialty Start Date End Date Gianluca Nassar MD PCP - General 12/23/10 documented as of this encounter
--- OUTSIDE RECORDS SUMMARY | 2024-10-18 15:32 | XMS_ITS | Clinical Summary ---
Author Organization [facility] [place] [address] Care Team Providers Care Senior Lead Software Engineer Name Role Phone Adrian Veronica CHRISTEL Primary Care Provider [phone] Allergies Active Allergy Reactions Criticality Noted Date [...] REMOVE Please contact the Blood Bank at [phone] for questions. Sulfamethoxazole Other (See Comments) High [...] type, unspecified whether angina present, unspecified whether ute or transplanted heart Take 2 capsules by mouth 2 times daily. 360 capsule 3 04/24/2022 Active Additional Information Patient taking differently: 1 capsuleOral 2 TIMES DAILY, Reported on 01/26/2024 FreeStyle Elma 2 [place] MiscIndications:genny betes mellitus 1 each by Other [...] included. History of remote CABG TTE 09/07/2019 ([facility]): TTE 01/20/2022 ([place]): Cardiac Catheterization / Graft study/ PCI 02/24/2022: [...] Encounters Date Type Department Care Team Description 08/15/2024 3:00 PM EST Ext Surgery or Single Event [address] [place] [address] Higinio Penny MD Dyspnea, unspecified type 07/27/2024 [place] [address] Rosalie Thakur RN from Last 3 Months Immunizations Name Administration Dates Next Due Covid-19 Monovalent (Moderna Spikevax) 12yrs+ ([id number]) 01/01/2022,07/24/2021,12/30/2020, 021 Influenza (Novel H2V3-48) Injectable 07/28/2009 Influenza Vaccine, Whole 07/28/2009,07/21/2006,1 Social History Tobacco Use Types Packs/Day Years [...] from your doctor or pharmacy? Rarely 04/19/[address] [facility] Utilities Answer Date Recorded In the [...] any time in the past 12 m [facility], were you homeless or living in a assisted (including now)? No 04/19/2024 Sex and Gender [...] EDT Inhaled Oxygen Concentration - - Weight 98.9 kg (218 lb) 05/24/2024 2:15 PM EDT Height 177.8 cm (5' 10) 05/24/2024 2:15 PM EDT Body Mass Index 31.28 05/24/2024 2:15 PM EDT Plan of Treatment Upcoming Encounters Date Type Department Care Team (Late st Contact Info) Description 11/09/2024 10:40 AM EST Office Visit Cardiology at [address] [address] Pablito Hunt MD [facility] [place] [address] 03/20/2025 3:00 PM EDT Office Visit Dermatology at [facility] [address] [place] [address] Jeremiah Preston MD [facility] [place] [place] [address] Health Maintenance Due Date Last Done Comments CT Colonography 1955 FIT DNA 1955 FIT 1955 Sigmoidoscopy 1955 DM Hemoglobin A1c 1963 DM Opthalmology Exam 1963 DM Urine Microalbumin yearly 1963 Pneumoccocal Vaccine: 50+ (1 of 2 - PCV) 1972 Tetanus/Diphtheria/Pertussis Vaccines (1 - Tdap) 1972 Zoster vaccine (1 of 2) 2003 Advance Directive 2008 RSV Vaccine (1 - Risk 60-74 years 1-dose series) 2013 AAA Screen 2018 Covid-19 Vaccine (6 - 2024-2 5 season) 2024 07/18/2023, 01/01/2022, 07/24/2021, Additional history exists Influenza [...] TEST SCAN 08/15/2024 12:0 0 AM EST COMPREHENSIVE METABOLIC PANEL STAT 04/19/2024 12:04 PM EDT Thrombocytopenia HEPATITIS C ANTIBODY Routine 04/19/2024 12:04 PM EDT Thrombocytopenia COLONOSCOPY Routine 09/02/2015 8:28 AM EST from Last 3 Months or Most Recently Relevant to Health Maintenance Results * Scan Doc: Stress Test (08/15/2024 12:00 AM EST) Anatomical Region Laterality Modality Other Narrative 08/15/2024 12:00 AM EST Ordered by an unspecified provider. Scanning Provider MEDIA MGR SCAN EXT O RDR/RSLT * Hepatitis C Antibody (04/19/2024 12:04 PM EDT) Hepatitis C Antibody Negative Negative [facility] Blood 04/19/2024 12:0 4 PM EDT 04/19/2024 12:18 PM EDT Narrative Resulting Agency Comment Spec In Lab Sal Gray MD CHEMISTRY ORDERABLE S [facility] [place] [address] * (ABNORMAL) Comprehensive metabolic panel (non-fasting) (04/19/2024 12:04 PM EDT) Glucose 176 65 - 199 mg/dL [facility] Comment:Diabetes: >=200 mg/d L plus symptoms Blood Urea Nitrogen 14 10 - 20 mg/dL [facility] Creatinine 1.23 0.80 - 1.50 mg/dL [facility] Sodium 141 135 - 145 mmol/L [facility] Potassium 4.8 3.5 - 5.0 mmol/L [facility] Comment: Please note: ??Patients with WBC >100,000 may have falsely elevated Potassium levels. ??For accurate Potassium quantification in these patients send serum separator tube (gold top) for subsequent determinations. ??Contact the Clinical Chemistry Laboratory if there are any questions. Chloride 106 98 - 107 mmol/L [facility] Carbon Dioxide 21(L) 22 - 31 mmol/L [facility] Anion Gap 14 5 - 15 mmol/L [facility] Calcium 10.3 8.5 - 10.5 mg/dL [facility] Protein, Total 7.5 6.1 - 8.0 g/dL [facility] Albumin 4.3 3.2 - 5.2 g/dL [facility] Aspartate Aminotransferase 19 0 - 39 unit/L [facility] Alanine Aminotransferase 20 0 - 55 unit/L [facility] Alkaline Phosphatase 92 40 - 130 unit/L [facility] Bilirubin, Total 0.5 0.2 - 1.3 mg/dL [facility] Est Glomerular Filtration Rate 63 >=60 mL/min/1. 73 m?? [facility] Comment: This patient's estimated [...] Lab Sal Gray MD CHEMISTRY ORDERABLE S [facility] [place] [address] * COLONOSCOPY (09/02/2015 8:28 AM EST) COLONOSCOPY [facility] Endoscopy Patient Name: Conrad Vera ? Procedure Date: 09/02/2015 8:28 AM ? Date of : 1955 ? Age: 60 ? Order #: [id number] ? Procedure: ? Colonoscopy Indications: ? High risk colon cancer surveillance: ? Personal history of colonic polyps ? Also recurrent diverticulitis Providers: ? Roula Saez MD, Nicolle Bruner RN, ? Wendy Starks, Pet Sitter Referring MD: ?Cipriano Yuan MD, Yovanny Renteria [...] The Colonoscope was inserted in the ? evelia and under direct visualization, ? advanced to [...] Cipriano Yuan MD GENERAL SURGICAL ORD ERABLES Performing Organization Address City/State/[facility] Co de Phone Number PROVATION from Last 3 Months or Most Recently Relevant to Health Maintenance Advance Directives Documents on File Type Date Recorded Patient Inspector Casing Expl anation Personal Inspector Casing 10/31/2023 6:40 PM Joana Vera - * [...] Status decision made by: Patient Care Teams Senior Lead Software Engineer Relationship Specialty Start Date End Date Veronica Campbell APRN [address] [place] [address] PCP - General Family Medicine 01/18/22
--- OUTSIDE RECORDS SUMMARY | 2024-10-18 15:32 | XMS_ITS | Encounter Summary ---
Author Organization [facility] [place] [address] Care Team Providers Care Hedge Trimmer Name Role Phone Veronica Campbell CHRISTEL Primary Care Provider [phone] Reason for Visit * Reason Comments Follow-up Post nasal run goi ng on for 14 months, trouble sleeping Encounter Details Date Type Department Care Team (Late st Contact Info) Description 05/24/2024 2:00 PM EDT Office [place] [address] Bernard Linares MD [facility] [place] [address] Nasal polyposis (Primary Dx); Chronic pansinusitis; Nasal obstruction; Coronary artery disease due to lipid rich [...] from your doctor or pharmacy? Rarely 04/19/2024 [facility] Utilities Answer Date Recorded In the past 12 months has e [employer], gas, oil, or water company threatened to [...] any time in the past [address] [facility], were you homeless or living in a penitentiary (including now)? No 04/19/2024 Sex and Gender [...] - Inhaled Oxygen Concentration - - Weight 98.9 kg (218 lb) 05/24/2024 2:15 PM EDT Height 177.8 cm (5' 10) 05/24/2024 2:15 PM EDT Body Mass Index 31.28 05/24/2024 2:15 PM EDT documented in this encounter Patient Instructions * Patient Instructions* Bernard Linares MD - 05/24/2024 2:00 PM EDT Images from the original note were not included. Rhinology, Endoscopic Sinus & Skull Base Surgery Bernard Linares MD Rhinology, Endoscopic Sinus & Skull Base Surgery Division of Otolaryngology - [place] [address] [facility] TREATMENT FOR NASAL POLYPS WHAT ARE NASAL POLYPS AND HOW ARE THEY DIAGNOSED? The four pairs of paranasal sinuses are located in the facial bones between the eye and the brain. These are air filled cav-ities. If the lining of a sinus becomes inflamed (as in chronic rhinosinusitis) it may begin to swell and form a grape like structure that can block the sinus (See Figure 1). This is called a polyp. Unlike colon polyps, nasal polyps are not can-cerous. Most patients will describe symptoms of nasal congestion, loss of smell, and facial pain or pressure. Other people will mention cough, nasal drainage, difficulty sleeping, and poor quality of life. Doctors will perform an exam using a small camera to look inside the nose (See Nasal Endoscopy). Your doctor may also order a special X-ray called a CT scan to evaluate all the sinuses. Figure 1. Nasal polyps HOW ARE NASAL POLYPS TREATED? Doctors usually first prescribe medication to treat polyps. This may include oral antibiotics for up to 3 weeks, nasal steroid sprays and/or oral steroids (not just a steroid shot). If these medications fail, sometimes alternative forms of ster-oids are considered. These second line medications are given by a different type of delivery system to help the med-icine get deeper into the nose. If medical therapy fails, endoscopic sinus surgery becomes an option. Sinus surgery is indicated ifpatients are struggling with nasal symptoms and a CT scan confirms significant sinus inflammation. Initial medications for nasal polyps ? Saline rinses ? Nasal steroid spray ? Oral steroid (prednisone burst) ? Doxycycline or other antibiotic Second line medications ? Steroid rinses ? Xhance Results of sinus surgery ? Symptom improvement in 80% of patients ? <1/3 need revision surgery ? 95% would do it again Goals of sinus surgery ? Remove polyps ? Open sinuses widely so that steroid rinses can get in WHAT IS SINUS SURGERY? Most sinus surgery consists of making the small natural open-ings in the sinuses much larger. Endoscopic sinus surgery is performed using small cameras and biting instruments (See Endoscopic Sinus Surgery). In addition, computers may be used to help guide the surgery (See Image-Guided Surgery). This allows for a safer and more complete operation. A more complete sinus operation allows for more medication to be delivered to the sinuses after surgery. It also allows for a faster recovery. The majority of sinus surgeries can be performed as an outpatient. This means that most patients can go home on the day of surgery. A few patients may need to be kept in the hospital for overnight observation depending on their age and overall health. The majority of patients do not need multiple sinus operations. 95% of patients report that they would have surgery again. ARE ALL SINUS OPERATIONS THE SAME? No. They are not. It is important to realize that limited surgery and balloon sinus dilatation may not provide large enough openings for delivery of topical nasal medicines designed to keep nasal polyps from re-growing. Prior surgery, the presence of nasal polyps, severe allergy issues includ-ing allergy to aspirin, and other complicated medical problems all can make sinus surgery more difficult.Every individual is different. Surgical approaches are altered according the needs of each patient. Figure 2. Endoscopic view of recurrent polyps in a patient who had limited sinus surgery/polypectomy Figure 3. Endoscopic view of the same patient 3 years after undergoing comprehensive surgery and using steroid rinses HOW LONG WILL IT TAKE TO RECOVER FROM SINUS SURGERY? It depends. Most people will plan to be out of work for 5-7 days after surgery depending on the extent of surgery. Patients with very physically demanding jobs may need to be off longer. Patients that can sit at a desk or hall worker on a computer may be able to work in just a few days. Typically a few narcotic pain pills are prescribed after surgery. But with more restrictions on the use of na rcotics, sometimes other medications are used to help with controlling discomfort. RAG COLLECTOR MANAGEMENT There is no known cure for nasal polyps at this time. The goal of treatment is to control the chronic inflammation and symptoms. Typically, topical nasal steroids are used following surgery. Steroid nasal rinses have been proven to be very safe and less expensive than other types of therapy. Once surgery has been completed, your ENT doctor will need to perform regular exams with an endo-scope to look in the nose and make sure that the polyps are not returning. If patients consistently follow their post-operative medical routine, they usually will not need to have multiple sinus op-erations. Recently, a new category of drugs that was designed for severe eczema and asthma has now been approved for the most complicated patients with chronic nasal polyps. These new drugs are called biologics and they alter the immune system as they control inflammation (See Biologics). They are injected into the skin regularly and are extremely expensive. But they can be quite effective when other therapies have failed. Common side effects of these drugs include allergic reactions, cold sores, and inflammation of the cornea (eye). If patients do have favorable results and the shots are stopped, polyps typically recur within a few months. For these reasons, these new immune system altering drugs are offered only inthe most difficult and challenging cases. Your ENT doctor may discuss this new class of medi-cations if they are needed. Accurate diagnosis Symptoms for at least 3 months Polyps on nasal endoscopy or CT \ / \ / ` First line medications Saline rinse, nasal steroid sprays, oral steroids +/- antibiotics \ / \ / ` Second line medications Alternative steroid delivery methods \ / \ / ` Sinus surgery and topical steroids \ / \ / ` Steroid eluting stents Alternative methods of steroid delivery Evaluation to determine if surgery was complete \ / \ / ` Multi-disciplinary evaluation by ENT/ dip tube assembler machine & sales product manager Consider biologic medications or aspi-rin desensitization (See Aspirin Desensitization) Figure 4. Flowchart of treatment for chronic rhinosinusitis with polyps Copyright ?? 2019 by The [place] [employer] The [place] [employer] presents this information as a service to current, past and future patients of its members as well as its membership. All information is believed to be accurate and true. Diligent efforts have been made to ensure objectivity and balance. The [place], its neurology specialist, its Officers, its representatives, and its members are not responsible for any errors and/or omissions. The [place] cannot provide specific medical advice to patients via the Internet. All patients are encouraged to direct their specific questions to their personal physicians. The [place] presents this information for pa-tients so that patients can understand and participate in their own medical care Nasal Irrigations What is nasal irrigation and [...] sale packets such as those sold by [employer] can be purchased at most drug stores, [...] to completely air dry before using again. Additional Information on Topical Steroid Medications Evidence supports that high volume irrigations provide the most reliable delivery of medications tothe paranasal sinuses.1-3 Surgery improves the distribution of irrigation into the paranasal sinuses.4-7 Additionally, high- volume irrigations have improved distribution to the nasal cavity along theorbit and olfactory cleft when compared with nasal sprays.1 High-volume irrigations overcome unfavorable nasal anatomy such as septal deviation, narrowed nasal valves, and inferior turbinate hypertrophy to penetrate the nasal cavity and paranasal sinuses.2 Such anatomic variants have been shown to decrease the distribution of nasal sprays to the nasal cavity/sinuses. The benefits of saline irrigations include improving mucociliary clearance, reducing mucosal inflammation, removing crusted mucus and allergens.8-9 A survey of members of the [place] [employer] Otolaryngology-Head and Neck Surgery found that 100% of rhinologists and 93.2% of otolaryngologists recommended sinus saline irrigations to patients following endoscopic sinus surgery.10 The addition of medications, such as steroids or antibiotics, to these saline rinses further enhances the efficacy ofthis treatment, reduces the complexity of the medication regimen, and allows for personalized treatment at the site of the sinus inflammation without the risk of systemic side effects observed with oral medications. In past years, we have participated in many discussions on the different topical steroids used in large volume nasal irrigations. These discussions related to the systemic absorption (absorption to the rest of the body) of the various steroids. Mometasone is the ideal option for topical irrigations given the low bioavailability with a systemic absorption is < 0.1%.11 Additionally, mometasone as a molecule has the highest potency of the topical steroids as measured by binding affinity to the glucocorticoid receptor.12 Budesonide is a good alternative for nasal irrigations. Although budesonide absorption to the rest of the body is approximately 34%, the vast majority (greater than 90%) undergoes first-pass metabolism by the liver. Additionally, studies have demonstrated that much of the sinus irrigation goes into the sink. In fact,when steroids are administered via high volume sinus irrigation, < 5% of the total dose remains in the sinuses following irrigation.13 Therefore, the amount of steroid exposure is low resulting infewer side effects than oral administration. A fellow dip tube assembler machine and colleague, Dr. Johnson Manuel, studied large volume nasal irrigations withmometasone at a total daily dose of 2 mg over 12 months and showed no treatment-related medication adverse reactions.14 Steroid-induced ocular hypertension is a potential concern with intranasal steroid administration. Several studies have investigated the effects of steroid nasal irrigations on intraocular pressure (IOP). In one study, IOP was evaluated in 18 patients who had been on budesonide irrigations for an average of 6.9 months (range 1-22 months).15 One patient had elevated IOP in one eye, but had a normal eye exam. In another study, IOP was studies in 46 patients using budesonide irrigations for a meanduration of 22 months (range 6-66 months).16 IOP was within normal limits in all patients and remained normal even at up to 66 months of use. The use of steroid irrigations appears to have a minimal e ffect on IOP,17-18 however a collaborative approach may be prudent with the incorporation of your eye doctor. In a study examining adrenal function in patients on long-term budesonide irrigations, 11 patients (23%) had abnormally low stimulated cortisol levels, however none were symptomatic.16 In the group of patients with low cortisol levels, concomitant use of a steroid nasal spray, inhaled (pulmonary) steroid, and steroid irrigation was significantly higher. Concurrent use of only one other steroid (nasal spray or inhaler) was not associated with low stimulated cortisol levels in patients receiving steroid irrigations.16 In another study, 35 patients using budesonide nasal irrigations for a minimum of 12 months (mean duration 38.2 months) were tested for jiapsixmxnzb-ohvenvplb-jxqwxaw (HPA) axis suppression.19 There were no detected cases of HPA axis suppression. Eighteen patients were also taking inhaled corticosteroids, but none of the patients were concurrently prescribed intranasal steroid sprays. Thus, caution should be taken in patients using a steroid nasal spray, a steroid nasal irrigation, and an inhaled steroid. Discontinuation of the steroid nasal spray is generally advised, or monitoring of cortisol levels may be warranted in these patients. Conrad WW, Kaleb COSTA, Darlyn Lay, Gosia PH, Den COSTA. Distribution of topical agents to the paranasal sinuses: An evidence-based review with recommendations. International Forum of Allergy & Rhinology. 2013;3(9):691-703. Lonny ROSADO, Darlyn Lay. Delivery of topical therapies. In Rhinosinusitis with Nasal Polyposis. Zyga. 2016;79:114-120. Erin MA, Rosangela SS, Lexie HM, Pawan ME, Jose Miguel JE. Nasal sailne for chronic sinonasal symptoms:A randomized controlled trial. Archives of Otolaryngology- Head & Neck Surgery. 2007;11:5434-2339. Kaleb COSTA, Nimisha COLE, Russel SK, Den COSTA. Effects of endoscopic sinus surgery on delivery device on cadaver sinus irrigation. Otolaryngology-Head and Neck Surgery. 2008;139(1):137-142. Trudy O, Tejinder A, Sharri A, Marium EH, Juana EC, Gloria B. Sinus irrigation penetration after balloon sinuplasty vs functional endoscopic sinus surgery in a cadaveric model. International Forum of Allergy & Rhinology. 2019;9(9):953-957. Rashard JW, Bob M, Devante E, Gayathri B, Keena M, Thong R, Kaleb COSTA. Effect of sphenoid surgery on nasal irrigation delivery. International Forum of Allergy & Rhinology. 2019;9(9):971-976. Jeanine D, Vanita EK, Sayda E, Keven B, Paz B, Negin DARLINE, Jimmie PJ. Effect of head position and surgical dissection on sinus irrigant penetration in cadavers. The Laryngoscope. 2010;120(12):6631-2324. Miguel ZAZUETA, Kaleb COSTA. Nasal saline irrigation therapeutic or homeopathic. [place] Journal of Otorhinolaryngology. 2015;81(5):457-458. Casey LJ, Torie JM. Topical drug therapies for chronic rhinosinusitis. Otolaryngologic Clinics [facility]. 2017;50(3):533-543. Olive RA, Pascual Dupree, Prabhu J. Perioperative care in functional endoscopic sinus surgery: A survey study. International Forum of Allergy & Rhinology. 2012;2(1):27-33. Arabella Garrett. Local and systemic safety of intranasal corticosteroids. Journal of Investigational Allergology and Clinical Immunology. 2012;22(1):1. Tc Garner. Intranasal corticosteroids for allergic rhinitis: How do different agents compare? Journal of Allergy and Clinical Immunology. 1999;104(4):144-149. Darlyn Lay. High-volume sinonasal budesonide irrigations for chronic rhinosinusitis: An update on thesafety and effectiveness. Adv Pharmacoepidemiol Drug Saf. 2014;3(148):2167-105. Kaleb COSTA, Benny K, Alexander LH, Familia BARKSDALE, Fausto R. Corticosteroid nasal irrigations are more effective than simple sprays in a randomized double-blinded placebo-controlled trial for chronic rhinosinusitis after sinus surgery. International Forum of Allergy & Rhinology. 2018;8(4):461-470. Kishor KA, Nasir DF, Candace J, Heena F, Viri CA. Effect of intranasal budesonide irrigations on intraocular pressure. International Forum of Allergy & Rhinology. 2013;3(9):704-707. Jannet E, Ori J, Celio R, Shaggy L, Elise PH. Safety analysis of long-term budesonide nasal irrigations in patients with chronic rhinosinusitis post endoscopic sinus surgery. InternationalForum of Allergy & Rhinology. 2016;6(6):568-572. Fred Y, Helder DA. Is topical high-volume budesonide sinus irrigation safe: The Laryngoscope. 2018;128(4):781-782. Rashard OLSON, Kaleb COSTA. Topical corticosteroid irrigations in chronic rhinosinusitis. International Forum of Allergy & Rhinology. 2019;9(S1):9-15. Lonny ROSADO, Jay Simon, Constantino Holley, Darlyn Lay. Safety of long-term high-volume sinonasal budesonide irrigations for chronic rhinosinusitis. International Forum of Allergy & Rhinology. 2016;6(3):228-232. documented in this encounter Progress Notes * Bernard Linares MD - 05/24/2024 2:00 PM EDT Conrad Vera is a 69 y.o. male with CRS who returns s/p ESS and septoplasty (11/26/23). 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 Intraoperative culture grew staph aureus-provided with ppx Augmentin day of procedure. Today, Conrad reports doing poorly. Reports persistent bilateral yellow rhinorrhea, postnasal drip,fluctuating nasal obstruction and poor sleep quality. Reports no epistaxis. Conrad reports no fevers, chills, nausea, emesis or loose stools Conrad has used the saline rinses as needed with only temporary relief of 2-3 hours following each rinse. ROS: No other symptoms experienced in constitutional, [...] to perform endoscopy. Procedure: Nasal Endoscopy (CPT 46560) Indication: Symptoms suggestive of chronic rhinosinusitis. Due to limited visualization with anterior rhinoscopy that does not provide sufficient clinical information to establish a diagnosis, sinonasal endoscopy was performed using topical anesthetic and vasoconstrictors as needed. This is medically necessary to evaluate chronic sinonasal symptoms given suspicion of: nasal obstruction not due toseptal deviation that is refractory to medical therapy/chronic sinusitis, monitor for development of nasal polyps. A repeat nasal endoscopy is medically necessary when the symptoms do not improve or worsen following medical/surgical treatment. Surgeon: Bernard Linares MD Informed Consent: The procedure, risks and benefits were discussed with the patient and consent obtained to proceed. Procedure: Topical spray consisting of 1% oxymetazoline and 4% lidocaine was sprayed into the nasalcavity bilaterally. A rigid endoscope was then used to visualize each nasal cavity, utilizing inferior, central and superior passes. Patient tolerated well. Findings: Septum: Straight Interior nasal cavity: Moderate global edema, no purulence or obstructive lesions bilaterally Inferior turbinates: Edematous bilaterally Middle turbinates: Edematous bilaterally with polypoid edema along the head of the middle turbinates The middle meatus, superior meatus, and sphenoethmoidal recess are partially obstructed by edema and grade 1 polyps bilaterally, no purulence bilaterally Maxillary antrostomy, ethmoid cavity, sphenoidotomy, and frontal recess widely open bilaterally with above polyps. Olfactory cleft: Edematous bilaterally Visualized portion of nasopharynx unremarkable 10/25/2023 10:50 AM Q-SCT During the past [...] very mild problem Nose Scoring 45 (Moderate) Eosinophils Abs Date/Time Value Ref Range Status 04/19/2024 12:04 PM 0.8 (H) 0.0 - 0.4 x10(3)/mcL Final Eos % Date/Time Value Ref Range Status 04/19/2024 12:04 PM 11.0 % Final Assessment and Plan: Encounter Diagnoses Name Primary? Nasal polyposis Yes Chronic pansinusitis Nasal obstruction Coronary artery disease due to lipid rich plaque I reviewed the pathophysiology of chronic rhinosinusitis with the patient, including medical management of the disease and recalcitrant nature of the symptoms. Interestingly, he has developed a nasalpolyp phenotype and this is further supported by an increase in peripheral eosinophils (11%) on hismost recent lab work 1 month ago, compared to 6 months ago (<6%). He continues daily aspirin without worsening of airway symptoms. I reviewed the pathophysiology of nasal polyposis with the patient, including medical management ofthe disease and recalcitrant nature of the symptoms. We focused on the above nasal endoscopy exam and prior imaging. I reviewed management options includin) initiation of mometasone nasal irrigations BID; 2) intermittent courses of systemic steroids +/- antibiotics; discussed risk associated with prednisone use specifically risk of avascular necrosis of the hip/hip fracture 3) Biological agents: Most recently dupilumab has been approved for the treatment of chronic sinusitis with nasal polyps. Dupilumab blocks IL-4 and IL- 13 proteins which play a role in inflammation. These medications have been shown to reduce the symptoms of chronic rhinosinusitis with nasal polyps and may decrease to some extent the degree of polyp burden; as well as the frequency of asthma flare-ups. Plan to start mometasone nasal rinses BID. RTC 3 months with VINICIUS/PA (CD) for review of symptoms. Wemay consider a steroid burst if refractory symptoms and/or discussion of biologic therapy if he is not a topical or systemic steroid responder. Instructed to call in the interim with questions or concerns. Thank you very much for asking me to see this very pleasant patient. Sincerely, Bernard Linares MD Rhinology, Endoscopic Sinus & Skull Base Surgery Division of Otolaryngology - [place] [address] [facility] Over 50% of this 30 minute visit was spent counseling or coordinating care and discussing medical and/or surgical treatments as described above. documented in this encounter Plan of Treatment Upcoming Encounters Date Type Department Care Team (Late st Contact Info) Description 11/09/2024 10:40 AM EST Office Visit Cardiology at [address] [address] Pablito Hunt MD [facility] [place] [address] 03/20/2025 3:00 PM EDT Office Visit Dermatology at [facility] [address] [place] [address] Jeremiah Preston MD [facility] [place] [address] documented as of this encounter Visit Diagnoses Diagnosis Nasal polyposis- Primary Unspecified nasal polyp Chronic pansinusitis Other chronic sinusitis Nasal obstruction Other diseases of nasal cavity and sinuses Coronary artery disease due to lipid rich plaque documented in this encounter Care Teams Hedge Trimmer Relationship Specialty Start Date End Date Veronica Campbell APRN [address] [place] [address] PCP - General Family Medicine 01/18/22 documented as of this encounter
--- OUTSIDE RECORDS SUMMARY | 2024-10-18 15:32 | XMS_ITS | Encounter Summary ---
Author Organization [facility] Address [facility] [place] [address] Care Team Providers Care Line Tender Flakeboard Name Role Phone Veronica Campbell APRN Primary Care Provider [phone] Encounter Details Date Type Department Care Team (Latest Contact Info) Description 05/24/2024 Travel Social History Tobacco Use Types Packs/Day [...] from your doctor or pharmacy? Rarely 04/19/2024 [facility] Utilities Answer Date Recorded In the past 12 months has [facility] [employer], gas, oil, or water [employer] threatened to shut off services in your [...] any time in the past 12 m [facility], were you homeless or living in a skilled nursing (including now)? No 04/19/2024 Sex and Gender Information Value Date Recorded Sex Assigned at Not on file Gender Identity Not on file Sexual Orientation Not on file documented as of this encounter Plan of Treatment Upcoming Encounters Date Type Department Care Team (Late st Contact Info) Description 11/09/2024 10:40 AM EST Office Visit Cardiology at [address] [address] Pablito Hunt MD [facility] [place] [address] 03/20/2025 3:00 PM EDT Office Visit Dermatology at [facility] [address] [place] [address] Jeremiah Preston MD [facility] [address] [place] [address] documented as of this encounter Visit Diagnoses Not on filedocumented in this encounter Care Teams Line Tender Flakeboard Relationship Specialty Start Date End Date Veronica Campbell APRN [address] [place] [address] PCP - General Family Medicine 01/18/22 documented as of this encounter
--- OUTSIDE RECORDS SUMMARY | 2024-10-18 15:32 | XMS_ITS | Encounter Summary ---
Author Organization [facility] [place] [address] Care Team Providers Care Substation Manager Name Role Phone Veronica Campbell CHRISTEL Primary Care Provider [phone] Encounter Details Date Type Department Care Team [...] 10:40 AM EST Office Visit Cardiology at [address] [address] Pablito Hunt MD [facility] [place] [address] 03/20/2025 3:00 PM EDT Office Visit Dermatology at [facility] [address] [place] [address] Jeremiah Preston MD [facility] [address] [place] [place] [address] documented as of this encounter Visit Diagnoses Not on filedocumented in this encounter Care Teams Substation Manager Relationship Specialty Start Date End Date Veronica Campbell APRN [address] [place] [address] PCP - General Family Medicine 01/18/22 documented as of this encounter
--- OUTSIDE RECORDS SUMMARY | 2024-10-18 15:32 | XMS_ITS | Encounter Summary ---
Author Organization [facility] Address [facility] [address] [facility] [place] [address] Care Team Providers Care Operations And Intelligence Assistant Name Role Phone Veronica Campbell APRN Primary Care Provider [phone] Encounter Details Date Type Department Care Team (Latest Contact Info) Description 04/19/2024 11:55 AM EDT - 04/19/2024 11:59 PM EDT Hospital Encounter Hematology [place] [address] Thrombocytopenia Discharge Disposition: Home Social History Tobacco [...] from your doctor or pharmacy? Rarely 04/19/2024 [facility] Utilities Answer Date Recorded In the past 12 months has [employer], gas, oil, or water company threatened [...] any time in the past 12 m [facility], were you homeless or living in a halfway (including now)? No 04/19/2024 Sex and Gender [...] by mouth daily. 07/16/2023 FreeStyle Elma 2 Arden MiscIndications:diabetes mellitus 1 each by Other route daily. Indications: diabetes 1 each 08/03/2022 FreeStyle Elma 2 Sensor KitIndications:diabetes mellitus 1 each by Other route daily. Indications: diabetes 6 kit 3 08/03/2022 icosapent ethyL (Vascepa) 1 gram CapsuleIndications:Coron roc artery disease, unspecified vessel or lesion type, unspecified whether angina present, unspecified whether [place] or transplanted heart Take 2 capsules by [...] 10:40 AM EST Office Visit Cardiology at [address] [address] Pablito Hunt MD [facility] [place] [address] 03/20/2025 3:00 PM EDT Office Visit Dermatology at [facility] [address] [place] [address] Jeremiah Preston MD [facility] [address] [place] [address] documented as of this encounter Procedures Procedure [...] 4TH GENERATION ([facility]/CGP/APD/NL)PERFO RMABLE Routine 04/19/2024 12:04 PM EDT Thrombocytopenia HEPATITIS [...] 12:04 PM EDT) Neutrophil % 50.8 % [facility] Neutrophil Absolute 3.82 1.70 - 6.10 x10(3)/mc L [facility] Lymph % 30.4 % [facility] Lymphocytes Abs 2.3 0.9 - 3.2 x10(3)/ L [facility] Monocyte % 6.6 % [facility] Monocyte Abs 0.5 0.3 - 0.9 x10(3)/[facility] Eos % 11.0 % [facility] Eosinophils Abs 0.8(H) 0.0 - 0.4 x10(3)/[facility] Basophil % 0.8 % [facility] Baso Absolute 0.1 0.0 - 0.1 x10(3)/[facility] Immature Gran % 0.40 % [facility] Comment: Immature granulocytes(IG's)percentage and absolute count will include metamyelocytes, myelocytes, and promyelocytes. Blood smears from CBCs yielding IG's will be scanned manually for concordance. If this scan disagrees with the automated IG or if promyelocytes are noted, a manual differential will be performed. Immature Gran Absolute 0.03 0.00 - 0.04 x10(3)/[facility] Blood 04/19/2024 12:0 4 PM EDT 04/19/2024 12:18 PM EDT Narrative Resulting Agency Comment Spec In Lab Sal Gray MD HEMATOLOGY ORDERABL ES [facility] [place] [address] * (ABNORMAL) Hemogram (04/19/2024 12:04 PM EDT) White Blood Cell 7.5 4.0 - 9.5 x10(3)/[facility] Red Blood Cell 4.11(L) 4.58 - 5.54 x10(6)/[facility] Hemoglobin 13.0(L) 13.7 - 16.5 g/dL [facility] Hematocrit 37.4(L) 40.5 - 48.5 % [facility] Mean Cell Volume 91.0 82.9 - 93.[address] [facility] Mean Cell Hemoglobin 31.6 27.5 - 32.[address] [facility] Mean Cell Hemoglobin Concentration 34.8 32.0 - 35.7 g/dL [facility] Platelet 95(L) 145 - 357 x10(3)/mc L [facility] RDW Standard Deviation 47.8(H) 36.0 - 45.[address] [facility] RDW coefficient of variation 14.5(H) 11.4 - 13.8 % [facility] Mean Platelet Volume 11.3 7.6 - 12.[address] [facility] NRBC% auto 0.0 % [facility] NRBC Absolute 0.000 0.000 - 0.000 x10(3)/mc L [facility] Blood 04/19/2024 12:0 4 PM EDT 04/19/2024 12:18 PM EDT Narrative Resulting Agency Comment Spec In Lab Sal Gray MD HEMATOLOGY ORDERABL ES [facility] [place] [address] * (ABNORMAL) Comprehensive metabolic panel (non-fasting) (04/19/2024 12:04 PM EDT) Glucose 176 65 - 199 mg/dL [facility] Comment:Diabetes: >=200 mg/d L plus symptoms Blood Urea Nitrogen 14 10 - 20 mg/dL [facility] Creatinine 1.23 0.80 - 1.50 mg/dL [facility] Sodium 141 135 - 145 mmol/L [facility] Potassium 4.8 3.5 - 5.0 mmol/L [facility] Comment: Please note: ??Patients with WBC >100,000 may have falsely elevated Potassium levels. ??For accurate Potassium quantification in these patients send serum separator tube (gold top) for subsequent determinations. ??Contact the Clinical Chemistry Laboratory if there are any questions. Chloride 106 98 - 107 mmol/L [facility] Carbon Dioxide 21(L) 22 - 31 mmol/L [facility] Anion Gap 14 5 - 15 mmol/L [facility] Calcium 10.3 8.5 - 10.5 mg/dL [facility] Protein, Total 7.5 6.1 - 8.0 g/dL [facility] Albumin 4.3 3.2 - 5.2 g/dL [facility] Aspartate Aminotransferase 19 0 - 39 unit/L [facility] Alanine Aminotransferase 20 0 - 55 unit/L [facility] Alkaline Phosphatase 92 40 - 130 unit/L [facility] Bilirubin, Total 0.5 0.2 - 1.3 mg/dL [facility] Est Glomerular Filtration Rate 63 >=60 mL/min/1. 73 m?? [facility] Comment: This patient's estimated GFR [...] Lab Sal Gray MD CHEMISTRY ORDERABLE S [facility] [place] [address] * Lactate Dehydrogenase (04/19/2024 12:04 PM EDT) Lactate Dehydrogenase 143 110 - 220 unit/L [facility] Blood 04/19/2024 12:0 4 PM EDT 04/19/2024 12:18 PM EDT Narrative Resulting Agency Comment Spec In Lab Sal Gray MD CHEMISTRY ORDERABLE S [facility] [place] [address] * Hepatitis B Core Antibody, Total (04/19/2024 12:04 PM EDT) Hepatitis B Core Antibody Negative Negative [facility] Blood 04/19/2024 12:0 4 PM EDT 04/19/2024 12:18 PM EDT Narrative Resulting Agency Comment Spec In Lab Sal Gray MD CHEMISTRY ORDERABLE S Performing Organization Address [facility]/ZIP Co de Phone Number [facility] [place] [address] * Hepatitis B Surface Antibody (04/19/2024 12:04 PM EDT) Hepatitis B Surface Antibody, Quantitative 9.5 IU/L [facility] Comment: HepB Surface Ab Quant: Unvaccinated: < 8.5 IU/L Vaccinated: >= 11.5 IU/L Hepatitis B Surface Antibody Indeterminate [facility] Comment: Unable to determine if the antibody is present at concentrations consistent with immunity to HBV infection. Expected Results: Vaccinated: Positive Unvaccinated: Negative Blood 04/19/2024 12:0 4 PM EDT 04/19/2024 12:18 PM EDT Narrative Resulting Agency Comment Spec In Lab Sal Gray MD CHEMISTRY ORDERABLE S Performing Organization Address City/[facility]/ZIP Co de Phone Number [facility] [place] [address] * Hepatitis B Surface Antigen (04/19/2024 12:04 PM EDT) Hepatitis B Surface Antigen Negative Negative [facility] Blood 04/19/2024 12:0 4 PM EDT 04/19/2024 12:18 PM EDT Narrative Resulting Agency Comment Spec In Lab Sal Gray MD CHEMISTRY ORDERABLE S Performing Organization Address City/[facility]/ZIP Co de Phone Number [facility] [place] [address] * Hepatitis C Antibody (04/19/2024 12:04 PM EDT) Hepatitis C Antibody Negative Negative [facility] Blood 04/19/2024 12:0 4 PM EDT 04/19/2024 12:18 PM EDT Narrative Resulting Agency Comment Spec In Lab Sal Gray MD CHEMISTRY ORDERABLE S Performing Organization Address [facility] Co de Phone Number [facility] [place] [address] * HIV Screen, 4th Generation ([facility]/CGP/APD/NLH) (04/19/2024 12:04 PM EDT) [facility] HIV Ab/Ag Screen Negative Negative [facility] Comment: This 4th Generation HIV [...] HIV Comment Low Risk of HIV Infection [facility] Blood 04/19/2024 12:0 4 PM EDT 04/19/2024 12:18 PM EDT Narrative Resulting Agency Comment Spec In Lab Sal Gray MD CHEMISTRY ORDERABLE S Performing Organization Address City/[facility]/ZIP Co de Phone Number [facility] [place] [place] [address] * Protein Electrophoresis, serum (04/19/2024 12:04 PM EDT) Pathologist [facility] Total Prot Electrophoresis 7.3 6.1 - 8.0 g/dL [facility] Albumin Electrophoresis 4.67 3.20 - 5.20 g/dL [facility] Alpha 1 Globulin 0.18 0.10 - 0.30 g/dL [facility] Alpha 2 Globulin 0.79 0.40 - 0.90 g/dL [facility] Beta Globulin 0.85 0.50 - 1.00 g/dL [facility] Gamma Globulin 0.82 0.50 - 1.30 g/dL [facility] M1 Band None Detected None Detected [facility] Blood 04/19/2024 12:0 4 PM EDT 04/19/2024 12:18 PM EDT Narrative Resulting Agency Comment Spec In Lab Sal Gray MD CHEMISTRY ORDERABLE S Performing Organization Address [facility]/ZIP Co de Phone Number [facility] [place] [address] * (ABNORMAL) Free Light Chains, Serum (04/19/2024 12:04 PM EDT) [facility] [place] Free Light Chain 6.11(H) 0.72 - 2.75 mg/dL [facility] Lambda Free Light Chain 3.23(H) 0.57 - 2.15 mg/dL [facility] [place]/Lambda FLC Ratio 1.8916 0.4000 - 2.5800 [facility] Blood 04/19/2024 12:0 4 PM EDT 04/19/2024 12:18 PM EDT Narrative Resulting Agency Comment Spec In Lab Sal Gray MD CHEMISTRY ORDERABLE S Performing Organization Address [facility]/ZIP Co de Phone Number [facility] [place] [address] * Iron and TIBC (04/19/2024 12:04 PM EDT) [facility] Iron 82 45 - 160 mcg/dL [facility] TIBC 351 250 - 450 mcg/dL [facility] Iron Saturation 23 20 - 50 % [facility] Blood 04/19/2024 12:0 4 PM EDT 04/19/2024 12:18 PM EDT Narrative Resulting Agency Comment Spec In Lab Sal Gray MD CHEMISTRY ORDERABLE S Performing Organization Address [facility]/ZIP Co de Phone Number [facility] [place] [address] * Ferritin (04/19/2024 12:04 PM EDT) Pathologist [facility] Ferritin 119 31 - 409 ng/mL [facility] Comment: Please note that as of 09/01/2023, the reference intervals for Ferritin have been updated. Blood 04/19/2024 12:0 4 PM EDT 04/19/2024 12:18 PM EDT Narrative Resulting Agency Comment Spec In Lab Sal Gray MD CHEMISTRY ORDERABLE S Performing Organization Address [facility] Co de Phone Number [facility] [place] [address] * (ABNORMAL) Platelet count (04/19/2024 12:04 PM EDT) Platelet 95(L) 145 - 357 x10(3)/mc L [facility] Immature Plt % 3.7 0.0 - 7.4 % [facility] Comment: Limitation of the Immature Platelet Fraction (IPF)-May be less reliable when the platelet count is less than 06k869/uL due to statistical imprecision. The IPF value [...] in a decreased state of production. References: [employer] The Clinical Value of the Immature Platelet Fraction (IPF) in Cell Recovery Document Number [id number] 02/2011 [employer] The Role of the Immature Platelet Fraction (IPF) in the Differential Diagnosis of Thrombocytopenia, Document [id number] V05/09/09 P002/07 Blood 04/19/2024 12:0 4 PM EDT 04/19/2024 12:18 PM EDT Narrative Resulting Agency Comment Spec In Lab Sal Gray MD HEMATOLOGY ORDERABL ES [facility] [place] [address] documented in this encounter Visit Diagnoses Diagnosis Thrombocytopenia Thrombocytopenia, unspecified documented in this encounter Care Teams Operations And Intelligence Assistant Relationship Specialty Start Date End Date Veronica Campbell APRN [address] [place] [address] PCP - General Family Medicine 01/18/22 documented as of this encounter
--- OUTSIDE RECORDS SUMMARY | 2024-10-18 15:32 | XMS_ITS | Encounter Summary ---
Author Organization [facility] [place] [address] Care Team Providers Care Drawing Kiln Operator Name Role Phone Veronica Campbell CHRISTEL Primary Care Provider [phone] Reason for Visit * Reason Comments Establish Care NXR R SHLDR US IN JECTION * Consultation (Routine) - Closed Specialty Diagnoses / Procedures Referred By Jason garcia Referred To Contact Orthopaedic Surgery / Orthopaedics Diagnoses NXR R SHLDR US INJECTION Procedures NEW PATIENT Higinio Villalobos MD [facility] [place] [address] Laron Ma MD [facility] [place] [address] Referral ID Status Reason Start Date Expiration Date V isits Requested Visits Authorized [id number] Closed Consult, Test & Treat 01/28/2024 01/27/2025 1 1 Encounter Details Date Type Department Care Team (Late st Contact Info) Description 01/28/2024 2:00 PM EDT Office [place] [phone] Laron Ma MD [facility] [place] [address] Adhesive capsulitis of right shoulder [...] Right Indication: Pain and limited function Equipment: [employer] with 4-20 MHz linear transducer, 4-12 MHz [...] in the interim. Laron Ma MD Sports Clinical Psychologist LicensedProperty Insurance Claims Examiner of Orthopedics [facility] The note was created using dictation, please excuse any grammatical or word errors. documented in this encounter Plan of Treatment Upcoming Encounters Date Type Department Care Team (Late st Contact Info) Description 11/09/2024 10:40 AM EST Office Visit Cardiology at [address] [address] Pablito Hunt MD [facility] [place] [address] 03/20/2025 3:00 PM EDT Office Visit Dermatology at [facility] [address] [place] [address] Jeremiah Preston MD [facility] [place] [address] documented as of this encounter Visit Diagnoses [...] mg documented in this encounter Care Teams Drawing Kiln Operator Relationship Specialty Start Date End Date Veronica Campbell APRN [address] [place] [address] PCP - General Family Medicine 01/18/22 documented as of this encounter
--- OUTSIDE RECORDS SUMMARY | 2024-10-18 15:32 | XMS_ITS | Encounter Summary ---
Author Organization [facility] Address [facility] [place] [address] Care Team Providers Care Examination Proctor Name Role Phone Veronica Campbell APRN Primary Care Provider [phone] Encounter Details Date Type Department Care Team [...] from your doctor or pharmacy? Rarely 04/19/2024 [facility] Utilities Answer Date Recorded In the past 12 months has [facility] [employer], gas, oil, or water [employer] threatened to shut off services in your [...] any time in the past 12 m [facility], were you homeless or living in a [place] health care facility (including now)? No 04/19/2024 Sex and Gender Information Value Date Recorded Sex Assigned at Not on file Gender Identity Not on file Sexual Orientation Not on file documented as of this encounter Plan of Treatment Upcoming Encounters Date Type Department Care Team (Late st Contact Info) Description 11/09/2024 10:40 AM EST Office Visit Cardiology at [address] [address] Pablito Hunt MD [facility] [place] [address] 03/20/2025 3:00 PM EDT Office Visit Dermatology at [facility] [address] [place] [address] Jeremiah Preston MD [facility] DR [place] [address] documented as of this encounter Visit Diagnoses Not on filedocumented in this encounter Care Teams Examination Proctor Relationship Specialty Start Date End Date Veronica Campbell APRN [address] [place] [address] PCP - General Family Medicine 01/18/22 documented as of this encounter
--- OUTSIDE RECORDS SUMMARY | 2024-10-18 15:32 | XMS_ITS | Encounter Summary ---
Author Organization [facility] [place] [address] Care Team Providers Care Dietitian Consultant Name Role Phone Veronica Campbell CHRISTEL Primary Care Provider [phone] Encounter Details Date Type Department Care Team (Late st Contact Info) Description 12/30/2023 Telephone [place] [address] Higinio Villalobos MD [facility] [place] [address] Social History Tobacco Use Types Packs/Day Years [...] 10:40 AM EST Office Visit Cardiology at [address] [address] Pablito Hunt MD [facility] [place] [address] 03/20/2025 3:00 PM EDT Office Visit Dermatology at [place] [address] [place] [address] Jeremiah Preston MD [facility] [place] [address] documented as of this encounter Visit Diagnoses Not on filedocumented in this encounter Care Teams Dietitian Consultant Relationship Specialty Start Date End Date Veronica Campbell APRN [address] [place] [address] PCP - General Family Medicine 01/18/22 documented as of this encounter
--- OUTSIDE RECORDS SUMMARY | 2024-10-18 15:32 | XMS_ITS | Encounter Summary ---
Author Organization [facility] Address [facility] [place] [address] Care Team Providers Care Tariff Inspector Name Role Phone Veronica Campbell CHRISTEL Primary Care Provider [phone] Reason for Visit * Reason Comments Post Op Doing well, curious if he should stop the antihistamine, culture results, Encounter Details Date Type Department Care Team (Late st Contact Info) Description 12/01/2023 1:30 PM EST Office [place] [address] Grisel Calhoun PA [facility] [place] [address] Deviated nasal septum; Chronic pansinusitis; S/P FESS [...] every day is a bit better, no obdulia epistaxis. Conrad reports no fevers, chills, nausea, [...] Procedure: Bilateral Nasal Endoscopy with Debridement (CPT [address] modifier utilized in setting of postoperative debridement [...] of Otolaryngology - [place] [address] [facility] documented in this encounter Plan of Treatment Upcoming Encounters Date Type Department Care Team (Late st Contact Info) Description 11/09/2024 10:40 AM EST Office Visit Cardiology at [address] [address] Pablito Hunt MD [facility] [place] [address] 03/20/2025 3:00 PM EDT Office Visit Dermatology at [facility] [address] [place] [address] Jeremiah Preston MD [facility] [place] [address] documented as of this encounter Visit Diagnoses Diagnosis Deviated nasal septum Chronic pansinusitis Other chronic sinusitis S/P FESS (functional endoscopic sinus surgery) Other postprocedural status S/P nasal septoplasty Other postprocedural status documented in this encounter Care Teams Tariff Inspector Relationship Specialty Start Date End Date Veronica Campbell APRN [address] [place] [address] PCP - General Family Medicine 01/18/22 documented as of this encounter
--- OUTSIDE RECORDS SUMMARY | 2024-10-18 15:32 | XMS_ITS | Encounter Summary ---
Author Organization Formerly [facility] [place] [address] Care Team Providers Care Assembly Member Name Role Phone Veronica Campbell APRN Primary Care Provider [phone] Reason for Visit * Consultation (Routine) - Authorized Specialty Diagnoses / Procedures Referred By Jason garcia Referred To Contact Hematology and Oncology Diagnoses Thrombocytopenia, unspecified CO-OCCURING ANEMIA, FATIGUE, EDEMA. Veronica Campbell APRN [address] [place] [address] [facility] [address] [place] [address] Referral ID Status Reason Start Date Expiration Date Visits Requested Visits Authorized [id number] Authorized Consult, Test & Treat PCP Updated and/or Approved 02/10/2024 02/09/2025 6 6 Encounter Details Date Type Department Care Team (Late st Contact Info) Description 04/19/2024 1:00 PM EDT Office Visit Hematology [place] [address] Sal Gray MD [facility] [place] [address] Thrombocytopenia; Lymphadenopathy; Splenomegaly Social History [...] from your doctor or pharmacy? Rarely 04/19/2024 [facility] Utilities Answer Date Recorded In the past [...] any time in the past 12 m [facility], were you homeless or living in a residential (including now)? No 04/19/2024 Sex and Gender [...] Surgical History: Procedure Laterality Date PRG CATH [facility] LEFT HEART CATH & ARTS W/INJ & ANGIO IMG S&I N/A 02/24/2022 CORONARY ANGIOGRAPHY; W LHC,POSSIBLE PCI performed by Pablito Hunt MD at [facility] 3/> NODE STATION/STRUX N/A 07/29/2023 BRONCH, W ENDOBRONCHIAL ULTRASOUND (EBUS) GUIDED SAMPLING, 3+ NODES (WRVU 4.96) performed by Toro Gonzales MD at [facility] ENDOSCOPY PRO COLONOSCOPY, DIAGNOSTIC N/A 09/02/2015 COLONOSCOPY, DIAGNOSTIC performed by Roula Saez MD at [facility] ENDOSCOPY PRO FRACTURE NASAL INFERIOR TURBINATE THERAPEUTIC Bilateral 11/26/2023 FRACTURE NASAL INFERIOR TURBINATE(S), THERAPEUTIC-BHANU (WRVU 1.31) performed by Bernard Linares MD at [facility] MAIN OR PRO NASAL SCOPY, EXPLOR FRONTAL SINUS Bilateral 11/26/2023 NASAL, SINUS ENDOSCOPY, FRONTAL EXPLORE, INC TISSUE REMOVAL-BHANU (WRVU 6.75) performed by Bernard Linares MD at [facility] MAIN OR PRO NASAL/SINUS ENDOSCOPY MAX ANTROST W/RMVL TISS MAX SINUS Bilateral 11/26/2023 NASAL, SINUS ENDOSCOPY, REMOVE TISSUE MAXILLARY SINUS, BHANU (WRVU 4.68) performed by Bernard Linares MD at [facility] MAIN OR PRO NASAL/SINUS NDSC TOT W/SPHENDT W/SPHEN TISS RMVL Bilateral 11/26/2023 NASAL,SINUS ENDOSCOPY,TOTAL ETHMOIDECTOMY INCLD SPHENOIDOTOMY W/ REMOVAL OF TISSUE (WRVU 8.48) performed by Bernard Linares MD at [facility] MAIN OR PRO SEPTOPLASTY/SUBMUCOUS RESECTION W/WO CARTILAGE GRAFT N/A 11/26/2023 SEPTOPLASTY OR SMR, W/ OR W/O CARTILAGE SCORING, CONTOURING OR REPLACEMENT W/ GRAFT (WRVU 7.01) performed by Bernard Linares MD at [facility] MAIN OR PRO STEREOTACTIC CPTR ASSTD PX CRANIAL, EXTRADURAL N/A 11/26/2023 STEREOTACTIC COMPUTER-ASSTD NAVIGATIONAL CRANIAL EXTRADURAL (WRVU 3.18) performed by Bernard Linares MD at [facility] MAIN OR XR JOINT ASPIRATION - LARGE JOINT RIGHT Right 12/24/2023 XR Fluoro Guided Joint Aspiration Large Right 12/24/2023 Silvestre Haider, [facility] RAD XRAY Medications I reviewed the medication list in the eDH with the pt Current Outpatient Medications Medication Instructions allopurinoL (ZYLOPRIM) 300 mg, Oral, EVERY MORNING aspirin EC 81 mg, Oral, DAILY atorvastatin (LIPITOR) 20 mg, Oral, NIGHTLY cetirizine (ZYRTEC) 10 mg, Oral, EVERY MORNING FreeStyle Elma 2 Eastern Misc 1 each, Other, DAILY FreeStyle Elma [...] REMOVE Please contact the Blood Bank at [phone] for questions. 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 Concurrent flow cytometry ([id number]) performed on the surgical specimen from this [...] further. Sal Gray MD Section of Hematology Metal Flooring Installerpublic relations associate [facility] Greater than 60 minutes in aggregate were spent on date of visit, including non- face to face time. CC: CHRISTEL Finley Abby Patient consents to use of [facility] portal for communication of results. This note was completed using [employer] Dictation technology. Please reach out if there are significant errors in clinical research tech that require clarification on my part. An addendum will be made to this note as necessary once pending labs have resulted. documented in this encounter Plan of Treatment Upcoming Encounters Date Type Department Care Team (Late st Contact Info) Description 11/09/2024 10:40 AM EST Office Visit Cardiology at [address] [address] Pablito Hunt MD [facility] [address] [place] [address] 03/20/2025 3:00 PM EDT Office Visit Dermatology at [facility] [address] [place] [phone] Jeremiah Preston MD [facility] [place] [address] documented as of this encounter Results * (ABNORMAL) Platelet count (04/19/2024 12:04 PM EDT) Platelet 95(L) 145 - 357 x10(3)/mc L [facility] Immature Plt % 3.7 0.0 - 7.4 % [facility] Comment: Limitation of the Immature Platelet Fraction (IPF)-May be less reliable when the platelet count is less than 77g213/uL due to statistical imprecision. The IPF value [...] in a decreased state of production. References: [employer] The Clinical Value of the Immature Platelet Fraction (IPF) in Cell Recovery Document Number [id number] 02/2011 [employer] The Role of the Immature Platelet Fraction (IPF) in the Differential Diagnosis of Thrombocytopenia, Document [id number] V002/05/14 P002/07 Blood 04/19/2024 12:0 4 PM EDT 04/19/2024 12:18 PM EDT Narrative Resulting Agency Comment Spec In Lab Sal Gray MD HEMATOLOGY ORDERABL ES Performing Organization Address [facility]/ZIP Co de Phone Number [facility] [place] [address] * Ferritin (04/19/2024 12:04 PM EDT) Ferritin 119 31 - 409 ng/mL [facility] Comment: Please note that as of 09/01/2023, the reference intervals for Ferritin have been updated. Blood 04/19/2024 12:0 4 PM EDT 04/19/2024 12:18 PM EDT Narrative Resulting Agency Comment Spec In Lab Sal Gray MD CHEMISTRY ORDERABLE S Performing Organization Address [facility] Co de Phone Number [facility] [place] [address] * Iron and TIBC (04/19/2024 12:04 PM EDT) Iron 82 45 - 160 mcg/dL [facility] TIBC 351 250 - 450 mcg/dL [facility] Iron Saturation 23 20 - 50 % [facility] Blood 04/19/2024 12:0 4 PM EDT 04/19/2024 12:18 PM EDT Narrative Resulting Agency Comment Spec In Lab Sal Gray MD CHEMISTRY ORDERABLE S Performing Organization Address City/[facility]/ZIP Co de Phone Number [facility] [place] [address] * (ABNORMAL) Free Light Chains, Serum (04/19/2024 12:04 PM EDT) [place] Free Light Chain 6.11(H) 0.72 - 2.75 mg/dL [facility] Lambda Free Light Chain 3.23(H) 0.57 - 2.15 mg/dL [facility] [place]/Lambda FLC Ratio 1.8916 0.4000 - 2.5800 [facility] Blood 04/19/2024 12:0 4 PM EDT 04/19/2024 12:18 PM EDT Narrative Resulting Agency Comment Spec In Lab Sal Gray MD CHEMISTRY ORDERABLE S Performing Organization Address City/[facility]/ZIP Co de Phone Number [facility] [place] [address] * Protein Electrophoresis, serum (04/19/2024 12:04 PM EDT) Pathologist [facility] Total Prot Electrophoresis 7.3 6.1 - 8.0 g/dL [facility] Albumin Electrophoresis 4.67 3.20 - 5.20 g/dL [facility] Alpha 1 Globulin 0.18 0.10 - 0.30 g/dL [facility] Alpha 2 Globulin 0.79 0.40 - 0.90 g/dL [facility] Beta Globulin 0.85 0.50 - 1.00 g/dL [facility] Gamma Globulin 0.82 0.50 - 1.30 g/dL [facility] M1 Band None Detected None Detected [facility] Blood 04/19/2024 12:0 4 PM EDT 04/19/2024 12:18 PM EDT Narrative Resulting Agency Comment Spec In Lab Sal Gray MD CHEMISTRY ORDERABLE S Performing Organization Address City/[facility]/ZIP Co de Phone Number [facility] [place] [address] * HIV Screen, 4th Generation (MC/CGP/APD/NLH) (04/19/2024 12:04 PM EDT) Pathologist [facility] HIV Ab/Ag Screen Negative Negative [facility] Comment: This 4th Generation HIV [...] HIV Comment Low Risk of HIV Infection [facility] Blood 04/19/2024 12:0 4 PM EDT 04/19/2024 12:18 PM EDT Narrative Resulting Agency Comment Spec In Lab Sal Gray MD CHEMISTRY ORDERABLE S [facility] [place] [address] * Hepatitis C Antibody (04/19/2024 12:04 PM EDT) Hepatitis C Antibody Negative Negative [facility] Blood 04/19/2024 12:0 4 PM EDT 04/19/2024 12:18 PM EDT Narrative Resulting Agency Comment Spec In Lab Sal Gray MD CHEMISTRY ORDERABLE S Performing Organization Address City/[facility]/ZIP Co de Phone Number [facility] [place] [address] * Hepatitis B Surface Antigen (04/19/2024 12:04 PM EDT) Hepatitis B Surface Antigen Negative Negative [facility] Blood 04/19/2024 12:0 4 PM EDT 04/19/2024 12:18 PM EDT Narrative Resulting Agency Comment Spec In Lab Sal Gray MD CHEMISTRY ORDERABLE S Performing Organization Address City/[facility]/ZIP Co de Phone Number [facility] [place] [address] * Hepatitis B Surface Antibody (04/19/2024 12:04 PM EDT) Hepatitis B Surface Antibody, Quantitative 9.5 IU/L [facility] Comment: HepB Surface Ab Quant: Unvaccinated: < 8.5 IU/L Vaccinated: >= 11.5 IU/L Hepatitis B Surface Antibody Indeterminate [facility] Comment: Unable to determine if the antibody is present at concentrations consistent with immunity to HBV infection. Expected Results: Vaccinated: Positive Unvaccinated: Negative Blood 04/19/2024 12:0 4 PM EDT 04/19/2024 12:18 PM EDT Narrative Resulting Agency Comment Spec In Lab Sal Gray MD CHEMISTRY ORDERABLE S [facility] [place] [address] * Hepatitis B Core Antibody, Total (04/19/2024 12:04 PM EDT) Hepatitis B Core Antibody Negative Negative [facility] Blood 04/19/2024 12:0 4 PM EDT 04/19/2024 12:18 PM EDT Narrative Resulting Agency Comment Spec In Lab Sal Gray MD CHEMISTRY ORDERABLE S Performing Organization Address City/[facility]/ZIP Co de Phone Number [facility] [place] [address] * Lactate Dehydrogenase (04/19/2024 12:04 PM EDT) Lactate Dehydrogenase 143 110 - 220 unit/L [facility] Blood 04/19/2024 12:0 4 PM EDT 04/19/2024 12:18 PM EDT Narrative Resulting Agency Comment Spec In Lab Sal Gray MD CHEMISTRY ORDERABLE S Performing Organization Address City/[facility]/ZIP Co de Phone Number [facility] [place] [address] * (ABNORMAL) Comprehensive metabolic panel (non-fasting) (04/19/2024 12:04 PM EDT) Glucose 176 65 - 199 mg/dL [facility] Comment:Diabetes: >=200 mg/d L plus symptoms Blood Urea Nitrogen 14 10 - 20 mg/dL [facility] Creatinine 1.23 0.80 - 1.50 mg/dL [facility] Sodium 141 135 - 145 mmol/L [facility] Potassium 4.8 3.5 - 5.0 mmol/L [facility] Comment: Please note: ??Patients with WBC >100,000 may have falsely elevated Potassium levels. ??For accurate Potassium quantification in these patients send serum separator tube (gold top) for subsequent determinations. ??Contact the Clinical Chemistry Laboratory if there are any questions. Chloride 106 98 - 107 mmol/L [facility] Carbon Dioxide 21(L) 22 - 31 mmol/L [facility] Anion Gap 14 5 - 15 mmol/L [facility] Calcium 10.3 8.5 - 10.5 mg/dL [facility] Protein, Total 7.5 6.1 - 8.0 g/dL [facility] Albumin 4.3 3.2 - 5.2 g/dL [facility] Aspartate Aminotransferase 19 0 - 39 unit/L [facility] Alanine Aminotransferase 20 0 - 55 unit/L [facility] Alkaline Phosphatase 92 40 - 130 unit/L [facility] Bilirubin, Total 0.5 0.2 - 1.3 mg/dL [facility] Est Glomerular Filtration Rate 63 >=60 mL/min/1. 73 m?? [facility] Comment: This patient's estimated GFR [...] Lab Sal Gray MD CHEMISTRY ORDERABLE S [facility] [place] [address] documented in this encounter Visit Diagnoses Diagnosis Thrombocytopenia Thrombocytopenia, unspecified Lymphadenopathy Enlargement of lymph nodes Splenomegaly documented in this encounter Care Teams Assembly Member Relationship Specialty Start Date End Date Veronica Campbell APRN [address] [place] [address] PCP - General Family Medicine 01/18/22 documented as of this encounter
--- OUTSIDE RECORDS SUMMARY | 2024-10-18 15:32 | XMS_ITS | Encounter Summary ---
Author Organization [facility] [place] [address] Care Team Providers Care Scrap Baler Name Role Phone Veronica Campbell CHRISTEL Primary Care Provider [phone] Encounter Details Date Type Department Care Team (Late st Contact Info) Description 12/27/2023 Orders [place] [address] [facility] DR [place] [address] Pain of left thumb Social History Tobacco [...] 10:40 AM EST Office Visit Cardiology at [address] [address] [facility] [place] [address] 03/20/2025 3:00 PM EDT Office Visit Dermatology at [facility] [address] [place] [address] [facility] [address] [place] [address] documented as of this encounter Visit Diagnoses Diagnosis Pain of left thumb Pain in limb documented in this encounter Care Teams Scrap Baler Relationship Specialty Start Date End Date Veronica Campbell APRN [address] [place] [address] PCP - General Family Medicine 01/18/22 documented as of this encounter
--- OUTSIDE RECORDS SUMMARY | 2024-10-18 15:32 | XMS_ITS | Encounter Summary ---
Author Organization Formerly [facility] [place] [address] Care Team Providers Care Review Trainer Name Role Phone Veronica Campbell CHRISTEL Primary Care Provider [phone] Encounter Details Date Type Department Care Team (Late st Contact Info) Description 12/29/2023 Orders [place] [phone] Heidy Ibarra PA [facility] [place] [address] Social History Tobacco Use Types Packs/Day Years [...] AM EST Office Visit Cardiology at [address] [phone] Pablito Hunt MD [facility] [place] [address] 03/20/2025 3:00 PM EDT Office Visit Dermatology at [facility] [address] [place] [address] Jeremiah Preston MD [facility] [place] [address] documented as of this encounter Visit Diagnoses Not on filedocumented in this encounter Care Teams Review Trainer Relationship Specialty Start Date End Date Veronica Campbell APRN [address] [place] [address] PCP - General Family Medicine 01/18/22 documented as of this encounter
--- OUTSIDE RECORDS SUMMARY | 2024-10-18 15:32 | XMS_ITS | Encounter Summary ---
Author Organization [facility] Address [facility] [place] [address] Care Team Providers Care Business Management Consultant Name Role Phone Veronica Campbell CHRISTEL Primary Care Provider [phone] Encounter Details Date Type Department Care Team (Latest Contact Info) Description 12/24/2023 1:13 PM EDT - 12/24/2023 11:59 PM EDT Hospital Encounter XRay at [address] [place] [address] [facility] [place] [address] Right shoulder pain, unspecified chronicity Discharge Disposition: [...] is during regular office hours, please call [phone]. If it is after regular office hours, or on weekends or holidays, please call [phone] and ask to speak to the Educational Administrator abalone sheller. Revised 10/20/22 documented in this encounter Medications [...] by mouth daily. 07/16/2023 FreeStyle Elma 2 [place] MiscIndications:diabete s mellitus 1 each by Other route daily. Indications: diabetes 1 each 08/03/2022 FreeStyle Elma 2 Sensor KitIndications:diabetes mellitus 1 each by Other route daily. Indications: diabetes 6 kit 3 08/03/2022 icosapent ethyL (Vascepa) 1 gram CapsuleIndications:Zayra nary artery disease, unspecified vessel or lesion type, unspecified whether angina present, unspecified whether hoonah or transplanted heart Take 2 capsules by [...] mouth 2 times daily (with meals). 12/12/2010 amoxicillin-clavulanate (Augmentin) 875-125 mg tablet Take 1 tablet by mouth 2 times daily. 20 tablet 11/26/2023 01/26/2024 documented as of this encounter Plan of Treatment Upcoming Encounters Date Type Department Care Team (Late st Contact Info) Description 11/09/2024 10:40 AM EST Office Visit Cardiology at [address] [address] [facility] [place] [address] 03/20/2025 3:00 PM EDT Office Visit Dermatology at [facility] [address] [place] [address] [facility] [place] [address] documented as of this encounter Procedures Procedure [...] who have questions please contact the health child care nurse that requested your imaging first. ? Electronically signed by: Maddy Campbell MD, [facility] ([phone]), at 12/24/2023 2:11 PM Narrative 12/24/2023 2:11 [...] electronic medical record and allergies, as per [facility] protocol. The patient was placed supine with [...] electronic medical record and allergies, as per [facility] protocol. The patient was placed supine with [...] patients who have questions please contactthe health child care nurse that requested your imaging first. Higinio Villalobos [...] mLs documented in this encounter Care Teams Business Management Consultant Relationship Specialty Start Date End Date Veronica Campbell APRN [address] [place] [address] PCP - General Family Medicine 01/18/22 documented as of this encounter
--- OUTSIDE RECORDS SUMMARY | 2024-10-18 15:32 | XMS_ITS | Encounter Summary ---
Author Organization [facility] Address [address] [place] [address] Care Team Providers Care Inventory Control/Shipping Receiving Name Role Phone Unavailable Primary Care Provider Unavailabl e Encounter Details Date Type Department Care Team (Late st Contact Info) Description 10/02/2005 12:19 EST Hospital Encounter [facility] [place] [address] [place] [address] Sukhjinder Oviedo MD [address] [place] [phone] Discharge Disposition: Auto Discharge Social History [...] particular patient to identify the symptomatic level. /andres us Sukhjinder Oviedo MD IMG MRI ORDERABLES Final Result * MR EXTREMITY ELBOW W CONTRAST (10/02/2005 [...] agree with the findings. Sukhjinder Oviedo MD [facility] MRI ORDERABLES Final Result * ORBITS FOR FOREIGN BODY (10/02/2005 14:24 EST) Anatomical Region Laterality Modality Other 10/02/2005 14:2 4 EST Narrative 04/26/2009 1:24 EDT PRE MRI ORBITS TO RULE OUT FOREIGN BODY ORBITS FOR FOREIGN BODY. FINDINGS: ??Two views of the orbits and an exposed plate show no evidence of metallic foreign body over the orbits. D: ??10/02/05 T: ??10/05/05 /abraham. Procedure Note Job Major MD - 04/26/2009 PRE MRI ORBITS TO RULE OUT FOREIGN BODY ORBITS FOR FOREIGN BODY. FINDINGS: Two views of the orbits and an exposed plate show no evidence of metallic foreign body over the orbits. /abraham. Sukhjinder Oviedo MD [facility] DIAGNOSTIC IMAGING ORDERABLE S Final Result * FL GUIDE LOCATION, ASPIRATION, INJECTION, BIOPSY [...] thickness rotator cuff tear. ??MRI to follow. /andres Procedure Note Grace Caicedo MD - 04/26/2009 [...] follow. /tns Sukhjinder Oviedo MD IMG FLUOROSCOPY ORDERABLES Final Result documented in this encounter Visit Diagnoses Not on filedocumented in this encounter
--- OUTSIDE RECORDS SUMMARY | 2024-10-18 15:32 | XMS_ITS | Encounter Summary ---
Author Organization [facility] [place] [address] Care Team Providers Care Amusement Park Entertainer Name Role Phone Veronica Campbell CHRISTEL Primary Care Provider [phone] Encounter Details Date Type Department Care Team [...] 10:40 AM EST Office Visit Cardiology at [address] [address] Pablito Hunt MD [facility] [address] 03/20/2025 3:00 PM EDT Office Visit Dermatology at [facility] [address] [place] [phone] Jeremiah Preston MD [facility] [address] [place] [address] documented as of this encounter Visit Diagnoses Not on filedocumented in this encounter Care Teams Amusement Park Entertainer Relationship Specialty Start Date End Date Veronica Campbell APRN [address] [place] [address] PCP - General Family Medicine 01/18/22 documented as of this encounter
--- OUTSIDE RECORDS SUMMARY | 2024-10-18 15:32 | XMS_ITS | Encounter Summary ---
Author Organization [facility] [place] [address] Care Team Providers Care Partner Marketing Manager Name Role Phone Veronica Campbell CHRISTEL Primary Care Provider [phone] Encounter Details Date Type Department Care Team [...] AM EST Office Visit Cardiology at [address] [address] Pablito Hunt MD [facility] [place] [address] 03/20/2025 3:00 PM EDT Office Visit Dermatology at [facility] [address] [place] [phone] Jeremiah Preston MD [facility] DR [address]ITE[place] [address] documented as of this encounter Visit Diagnoses Not on filedocumented in this encounter Care Teams Partner Marketing Manager Relationship Specialty Start Date End Date Veronica Campbell APRN [address] [place] [address] PCP - General Family Medicine 01/18/22 documented as of this encounter
--- OUTSIDE RECORDS SUMMARY | 2024-10-18 15:32 | XMS_ITS | Encounter Summary ---
Author Organization [facility] Address [address] [place] [address] Care Team Providers Care Box Bender Name Role Phone Gianluca Nassar MD Primary Care Provider Unavail able Encounter Details Date Type Department Care Team (Late st Contact Info) Description 03/09/2023 Lab Requisition [facility] Pathology & Laboratory Medicine - [address] [address] Outr Resulting Lab, Provider Social History Tobacco [...] PSA 2.0 <=4.5 ng/mL 03/09/2023 22:34 EDT [facility] Blood VENOUS BLOOD / Unknown 03/09/2023 11:05 EDT 03/09/2023 21:30 EDT Narrative [facility] - 03/09/2023 22:34 EDT NOTE: Serum PSA concentration should not be interpreted as absolute evidence for the presence or absence of malignant disease. Assayed on Siemens ADVIA GigSkyaur XPT using chemiluminescent technology.??Values obtained by using different assay methods cannot be used interchangeably. us Provider Outr Resulting Lab CHEMISTRY & BLOOD GA S ORDERABLES Final Result [facility] [address] [place] [address] documented in this encounter Visit Diagnoses Not on filedocumented in this encounter Care Teams Box Bender Relationship Specialty Start Date End Date Gianluca Nassar MD PCP - General 12/23/10 documented as of this encounter
--- OUTSIDE RECORDS SUMMARY | 2024-10-18 15:32 | XMS_ITS | Encounter Summary ---
Author Organization [facility] [place] [address] Care Team Providers Care Weight Recorder Name Role Phone Adrian Veronica CHRISTEL Primary Care Provider [phone] Encounter Details Date Type Department Care Team (Late st Contact Info) Description 11/26/2023 Telephone [place] [address] Grisel Calhoun PA [facility] [place] [address] Social History Tobacco Use Types Packs/Day Years [...] Resident Division of Otolaryngology-[place] [address] 11/26/23 8:21 PM documented in this encounter Plan of Treatment Upcoming Encounters Date Type Department Care Team (Late st Contact Info) Description 11/09/2024 10:40 AM EST Office Visit Cardiology at [address] [address] Pablito Hunt MD [facility] [place] [address] 03/20/2025 3:00 PM EDT Office Visit Dermatology at [address] [place] [address] Jeremiah Preston MD [facility] DR [address] [place] [address] documented as of this encounter Visit Diagnoses Not on filedocumented in this encounter Care Teams Weight Recorder Relationship Specialty Start Date End Date Veronica Campbell APRN [address] [place] [address] PCP - General Family Medicine 01/18/22 documented as of this encounter
--- OUTSIDE RECORDS SUMMARY | 2024-10-18 15:32 | XMS_ITS | Encounter Summary ---
Author Organization [facility] [place] [address] Care Team Providers Care Cloth Napping Supervisor Name Role Phone Veronica Campbell CHRISTEL Primary Care Provider [phone] Encounter Details Date Type Department Care Team [...] 10:40 AM EST Office Visit Cardiology at [address] [address] Pablito Hunt MD [facility] [place] [address] 03/20/2025 3:00 PM EDT Office Visit Dermatology at [facility] [address] [place] [id number] Jeremiah Preston MD [facility] DR [address] [place] [address] documented as of this encounter Visit Diagnoses Not on filedocumented in this encounter Care Teams Cloth Napping Supervisor Relationship Specialty Start Date End Date Veronica Campbell APRN [address] [place] [address] PCP - General Family Medicine 01/18/22 documented as of this encounter
--- OUTSIDE RECORDS SUMMARY | 2024-10-18 15:32 | XMS_ITS | Encounter Summary ---
Author Organization [facility] Address [address] [place] [address] Care Team Providers Care Electrical Appliance Repairer Name Role Phone Gianluca Nassar MD Primary Care Provider Unavail able Reason for Visit * Reason Comments Memory Loss Encounter Details Date Type Department Care Team (Late st Contact Info) Description 12/25/2010 9:[address] [facility] Medical Psychology [facility] [address] [place] [address] Sabas Goldman, PhD [address] [facility] Medical Office Building, [address] [place] [phone] Memory loss (Primary Dx) Social History Tobacco Use Types Packs/Day Years Used Date Smoking Tobacco: Never Assessed Sex and Gender Information Value Date Recorded Sex Assigned at Not on file Legal Sex Male 18:33 EST Gender Identity Not on file Sexual Orientation Not on file documented as of this encounter Consult Notes * Sabas Goldman, PhD - 01/01/2011 1307 EDT MEDICAL PSYCHOLOGY [facility] CONSULTATION - 12/25/2010 NEUROPSYCHOLOGICAL EVALUATION Conrad Vera is a 55-year-old man who was seen for outpatient neuropsychological evaluation on 12/25/2010. He was referred by Dr. Gianluca Nassar and was seen as an outpatient at the [facility]. PERTINENT BACKGROUND INFORMATION: Mr Vera was born in [place] and grew up in [place], [place]. He is the third of five children in his family. He graduated from high school in 1970 and completed the 5-year [employer] apprenticeship program. 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 He currently resides in [place] with Joana Vera, his of 36 years. [...] artery disease. He was subsequently admitted to [facility] and underwent CABG x3. He was a [...] bilaterally, for simple motor speed and basic student life vice president strength; however, he was a bit reduced [...] 12 years of education and 5 yearsof public relations assistant training. He is about one year status [...] 01/01/2011 13:07 Sabas Goldman, PHD - Sabas Goldman, PHD - MARY Job ID: SM Doc ID: [id number] Ext Doc ID: [id number] cc: Gianluca Nassar MD documented in this encounter Plan of Treatment Not on file documented as of this encounter Visit Diagnoses Diagnosis Memory loss- Primary documented in this encounter Care Teams Electrical Appliance Repairer Relationship Specialty Start Date End Date Gianluca Nassar MD PCP - General 12/23/10 documented as of this encounter
--- OUTSIDE RECORDS SUMMARY | 2024-10-18 15:32 | XMS_ITS | Encounter Summary ---
Author Organization [facility] [place] [address] Care Team Providers Care Structures Engineer Name Role Phone Veronica Campbell CHRISTEL Primary Care Provider Encounter Details Date Type Department Care Team (Late st Contact Info) Description 12/28/2023 Orders [place] [address] Higinio Villalobos MD [facility] [place] [address] Right shoulder pain, unspecified chronicity Social History [...] 10:40 AM EST Office Visit Cardiology at [address] [address] Pablito Hunt MD [facility] [place] [address] 03/20/2025 3:00 PM EDT Office Visit Dermatology at [facility] [address] [place] [address] Jeremiah Preston MD [facility] [place] [address] documented as of this encounter Visit Diagnoses Diagnosis Right shoulder pain, unspecified chronicity documented in this encounter Care Teams Structures Engineer Relationship Specialty Start Date End Date Veronica Campbell APRN [address] [place] [address] PCP - General Family Medicine 01/18/22 documented as of this encounter
--- OUTSIDE RECORDS SUMMARY | 2024-10-18 15:32 | XMS_ITS | Encounter Summary ---
Author Organization [facility] Address [address] [place] [address] Care Team Providers Care Machine Try Out Setter Name Role Phone Gianluca Nassar MD Primary Care Provider Unavail able Encounter Details Date Type Department Care Team (Late st Contact Info) Description 07/09/2020 Lab Requisition [facility] Pathology & Laboratory Medicine - [address] [address] Outr Resulting Lab, Provider Social History Tobacco [...] 0.0 - 4.5 ng/mL 07/09/2020 18:18 EDT [facility] Blood VENOUS BLOOD / Unknown 07/08/2020 9:05 EDT 07/09/2020 16:46 EDT Narrative [facility] - 07/09/2020 18:18 EDT NOTE: Serum PSA concentration should not be interpreted as absolute evidence for the presence or absence of malignant disease. Assayed on Siemens ADVIA Sebaciaaur XPT using chemiluminescent technology.??Values obtained by using different assay methods cannot be used interchangeably. us Provider Outr Resulting Lab CHEMISTRY & BLOOD GA S ORDERABLES Final Result [facility] [address] [place] [address] documented in this encounter Visit Diagnoses Not on filedocumented in this encounter Care Teams Machine Try Out Setter Relationship Specialty Start Date End Date Gianluca Nassar MD PCP - General 12/23/10 documented as of this encounter
--- OUTSIDE RECORDS SUMMARY | 2024-10-18 15:32 | XMS_ITS | Encounter Summary ---
Author Organization [facility] [place] [address] Care Team Providers Care Scale Shooter Name Role Phone Veronica Campbell CHRISTEL Primary Care Provider [phone] Encounter Details Date Type Department Care Team (Late st Contact Info) Description 01/26/2024 3:40 PM EDT Office [place] [address] Paulie Velazquez MD [facility] [place] [address] Mediastinal adenopathy; Lung infiltrate on CT; Splenomegaly; [...] NAME: Conrad Vera : 1955 MEDICAL RECORD: [id number] DATE OF SERVICE: 01/26/2024 PRIMARY CARE PHYSICIAN: [...] daily. 07/16/23 PROVIDER, HISTORICAL FreeStyle Elma 2 [place] Misc 1 each by Other route daily. [...] REMOVE Please contact the Blood Bank at [phone] for questions. Sulfamethoxazole Other (See Comments) Unsure [...] and hypoxia during a trip to the [facility]. He underwent bronchoscopy in July 2023 which [...] Section of Pulmonary & Critical Care Pager: [phone] I personally performed a total of 40min [...] 10:40 AM EST Office Visit Cardiology at [address] [address] Pablito Hunt MD [facility] [place] [address] 03/20/2025 3:00 PM EDT Office Visit Dermatology at [address] [place] [address] Jeremiah Preston MD [facility] [address] [place] [address] documented as of this encounter Visit Diagnoses Diagnosis Mediastinal adenopathy Enlargement of lymph nodes Lung infiltrate on CT Splenomegaly Anemia, unspecified type Thrombocytopenia Thrombocytopenia, unspecified documented in this encounter Care Teams Scale Shooter Relationship Specialty Start Date End Date Veronica Campbell APRN [address] [place] [address] PCP - General Family Medicine 01/18/22 documented as of this encounter
--- OUTSIDE RECORDS SUMMARY | 2024-10-18 15:32 | XMS_ITS | Encounter Summary ---
[place] [address] Care Team Providers Care Casting And Locker Room Servicer Name Role Phone Veronica Campbell APRN Primary Care Provider [phone] Reason for Referral * Consultation (Routine) - Authorized Specialty Diagnoses / Procedures Referred By Conttracey t Referred To Contact Hematology and Oncology Diagnoses Thrombocytopenia, unspecified CO-OCCURING ANEMIA, FATIGUE, EDEMA. Veronica Campbell APRN [address] [place] [address] [facility] Hem Onc [address] [place] [address] Referral ID Status Reason Start Date Expiration Date Visits Requested Visits Authorized [id number] Authorized Consult, Test & Treat PCP Updated and/or Approved 02/10/2024 02/09/2025 6 6 Encounter Details Date Type Department Care Team (Latest Contact Info) Description 02/23/2024 Transcribe Orders eDH Incoming Referrals [phone] Veronica Campbell APRN [address] [place], [place] [address] Thrombocytopenia, unspecified Social History Tobacco Use Types [...] 10:40 AM EST Office Visit Cardiology at [address] [address] Pablito Hunt MD [facility] [place] [address] 03/20/2025 3:00 PM EDT Office Visit Dermatology at [facility] [address] [place] [address] Jeremiah Preston MD [facility] [place] [address] Scheduled Referrals Name Type Priority Associated Diagnoses Orde r Schedule Referral to Hematology and Oncology Outpatient Referral Routine Thrombocytopenia, unspecified Ordered: 02/23/2024 documented as of this encounter Visit Diagnoses Diagnosis Thrombocytopenia, unspecified documented in this encounter Care Teams Casting And Locker Room Servicer Relationship Specialty Start Date End Date Veronica Campbell APRN [address] [place] [address] PCP - General Family Medicine 01/18/22 documented as of this encounter
--- OUTSIDE RECORDS SUMMARY | 2024-10-18 15:32 | XMS_ITS | Encounter Summary ---
Author Organization [facility] Address [facility] [place] [address] Care Team Providers Care Poultry Vaccinator Name Role Phone Adrian Veronica CHRISTEL Primary Care Provider [phone] Reason for Visit * Auth/Cert (Routine) Specialty [...] (WRVU 3.18) MODIFIER,STEALTH 2,KINEVO Bernard Linares MD [facility] [place] [address] [facility] Referral ID Status Reason Start Date Expiration Date Visits Re quested Visits Authorized [id number] 1 1 Encounter Details Date Type Department Care Team (Late st Contact Info) Description 11/26/2023 10:39 AM EST - 11/26/2023 1:54 PM EST Surgery [place] [phone] Bernard Linares MD [facility] [place] [address] NASAL, SINUS ENDOSCOPY, FRONTAL EXPLORE, INC TISSUE [...] 1:30 PM Grisel Calhoun PA Otolaryngology at [facility] Arrive at: Assistant Farm Operations Manager Area [phone] Please dispose of unused excess opioids before your appointment or bring them with you to the appointment and we will help you dispose of them correctly. 12/23/2023 1:45 PM [facility] DX ROOM 8 XRay at [facility] Arrive at: Assistant Farm Operations Manager Area [phone] FOR [place] PATIENTS: Please call Radiology at [phone] if you develop an infection unrelated to this exam, or are prescribed additional antibiotics prior to your appointment. We will need to reschedule your appointment for 2 weeks after the infection has resolved or the last dose of antibiotics. Please go to Assistant Farm Operations Manager Area 3T ([place] Location). 01/26/2024 2:40 PM [facility] CT 1 CT Scan at [facility] Arrive at: 3Z RADIOLOGY [phone] 01/26/2024 3:40 PM Paulie Velazquez MD Pulmonology at [facility] Arrive at: Assistant Farm Operations Manager Area [phone] documented in this encounter Medications at Time [...] by mouth daily. 07/16/2023 FreeStyle Elma 2 [place] MiscIndications:diabete s mellitus 1 each by Other route daily. Indications: diabetes 1 each 08/03/2022 FreeStyle Elma 2 Sensor KitIndications:diabetes mellitus 1 each by Other route daily. Indications: diabetes 6 kit 3 08/03/2022 icosapent ethyL (Vascepa) 1 gram CapsuleIndications:Zayra nary artery disease, unspecified vessel or lesion type, unspecified whether angina present, unspecified whether [place] or transplanted heart Take 2 capsules by [...] this time. __ Grisel Calhoun [place] [address] 11/26/23 9:27 AM Associated attestation - Bernard [...] plan as stated above. Bernard Linares M.D. Java Software Developer Rhinology, Endoscopic Sinus & Skull Base Surgery Division of Otolaryngology - Head and Neck Surgery [facility] documented in this encounter Miscellaneous Notes * Op Note - Bernard Linares MD - 11/26/2023 10:54 AM EST PATIENT NAME: Conrad Vera SERVICE: Otolaryngology SURGEON: Bernard Linares MD ANESTHESIA: General endotracheal. PREOPERATIVE DIAGNOSIS: Chronic sinusitis, nasal obstruction POSTOPERATIVE DIAGNOSIS: Same PROCEDURE: Bilateral endoscopic total ethmoidectomy and sphenoidotomy with tissue removal, CPT 96305-64 Bilateral endoscopic frontal sinusotomy, CPT 49585-97 Bilateral endoscopic maxillary antrostomy with tissue removal, CPT 99989-85 Septoplasty, CPT 75176 Out-fracture of inferior turbinates bilateral, CPT 24931-47 Stereotactic image guidance, CPT 24875 ESTIMATED BLOOD LOSS: 30 mL RETAINED ITEMS: [...] made on the left side. With the Forest elevator, the submucoperichondrial plane was identified and dissected on the left side, all the way to the posterior bony septum. A cartilaginous incision was made with the [place], leaving at least 1 cm of caudal [...] performed on the left side. Using the Mamta probe, the ethmoid infundibulum was gently dilated. The inferior aspect of the uncinate was removed using the back-biter. The maxillary sinus natural ostium was visualized and the [place] probed used to dilated the natural ostium [...] performed on the right side. Using the [place] probe, the ethmoid infundibulum was gently dilated. The inferior aspect of the uncinate was removed using the back-biter. The maxillary sinus natural ostium was visualized and the [place] probed used to dilated the natural ostium [...] 10:40 AM EST Office Visit Cardiology at [address] [address] Pablito Hunt MD [facility] [place] [address] 03/20/2025 3:00 PM EDT Office Visit Dermatology at [address] [place] [address] Jeremiah Preston MD [facility] [place] [address] documented as of this encounter Procedures Procedure [...] obstruction Stereotactic Cptr Asstd Px Cranial, Extradural (14592) Yes 11/26/2023 10:13 AM EST Chronic pansinusitis Hypertrophy of nasal turbinates Deviated nasal septum Coronary artery disease due to lipid rich plaque Nasal obstruction Fracture Nasal Inferior Turbinate Therapeutic (51473) Yes 11/26/2023 10:13 AM EST Chronic pansinusitis Hypertrophy of nasal turbinates Deviated nasal septum Coronary artery disease due to lipid rich plaque Nasal obstruction Septoplasty/Submucous Resection W/Wo Cartilage Graft (01626) Yes 11/26/2023 10:13 AM EST Chronic pansinusitis Hypertrophy of nasal turbinates Deviated nasal septum Coronary artery disease due to lipid rich plaque Nasal obstruction Nasal/Sinus Endoscopy Max Antrost W/Rmvl Tiss Max Sinus (17225) Yes 11/26/2023 10:13 AM EST Chronic pansinusitis Hypertrophy of nasal turbinates Deviated nasal septum Coronary artery disease due to lipid rich plaque Nasal obstruction Nasal/Sinus Ndsc Tot W/Sphendt W/Sphen Tiss Rmvl (23724) Yes 11/26/2023 10:13 AM EST Chronic pansinusitis Hypertrophy of nasal turbinates Deviated nasal septum Coronary artery disease due to lipid rich plaque Nasal obstruction Nasal Scopy, Explor Frontal Sinus (08672) Yes 11/26/2023 10:13 AM EST Chronic pansinusitis [...] EST) Anaerobic Culture No anaerobic organisms isolated [facility] Fluid 11/26/2023 11:1 1 AM EST 11/26/2023 11:30 AM EST Comment:Right nasal cavity Narrative Resulting Agency Comment Spec In Lab Bernard Linares MD MICROBIOLOGY - GENER AL ORDERABLES [facility] [place] [address] * (ABNORMAL) Body Fluid Culture, Aerobic (11/26/2023 11:11 AM EST) Body Fluid Culture Few Staphylococcus aureus Few normal upper respiratory edilson (A) [facility] Gram Stain Cytocentrifuge Gram Stain performed Neutrophils seen Few Gram Positive Cocci Rare Gram Positive Rods (A) [facility] Organism Staphylococcus aureus(A) [facility] Fluid 11/26/2023 11:1 1 AM EST 11/26/2023 11:30 AM EST Comment:Right nasal cavity Narrative Resulting Agency Comment Spec In Lab Organism Antibiotic Method Susceptibility Staphylococcus aureus Clindamycin VITEK 2 METHOD Resistant Staphylococcus aureus Erythromycin VITEK 2 METHOD Resistant Staphylococcus aureus Gentamicin VITEK 2 METHOD Sensitive Comment:Gentamicin i s not appropriate for Henry-therapy. Staphylococcus aureus Oxacillin VITEK 2 METHOD Sensitive [...] Linares MD MICROBIOLOGY - GENER AL ORDERABLES [facility] [address] * Differential, Automated (11/26/2023 10:30 AM EST) Neutrophil % 53.4 % [facility] Neutrophil Absolute 2.76 1.70 - 6.10 x10(3)/[facility] Lymph % 31.9 % [facility] Lymphocytes Abs 1.6 0.9 - 3.2 x10(3)/[facility] Monocyte % 8.3 % [facility] Monocyte Abs 0.4 0.3 - 0.9 x10(3)/[facility] Eos % 5.2 % [facility] Eosinophils Abs 0.3 0.0 - 0.4 x10(3)/[facility] Basophil % 0.8 % [facility] Baso Absolute 0.0 0.0 - 0.1 x10(3)/[facility] Immature Gran % 0.40 % [facility] Comment: Immature granulocytes(IG's)percentage and absolute count will include metamyelocytes, myelocytes, and promyelocytes. Blood smears from CBCs yielding IG's will be scanned manually for concordance. If this scan disagrees with the automated IG or if promyelocytes are noted, a manual differential will be performed. Immature Gran Absolute 0.02 0.00 - 0.04 x10(3)/mcL [facility] Blood 11/26/2023 10:3 0 AM EST 11/26/2023 11:21 AM EST Narrative Resulting Agency Comment Spec In Lab Bernard Linares MD HEMATOLOGY ORDERABLE S [facility] [place] [address] * (ABNORMAL) Hemogram (11/26/2023 10:30 AM EST) White Blood Cell 5.2 4.0 - 9.5 x10(3)/mc L [facility] Red Blood Cell 3.68(L) 4.58 - 5.54 x10(6)/mc L [facility] Hemoglobin 11.7(L) 13.7 - 16.5 g/dL [facility] Hematocrit 33.9(L) 40.5 - 48.5 % [facility] Comment: This result has been called to ALEX MIRZA by Braeden Corea on 11 26 2023 at 1142, and has been read back. Mean Cell Volume 92.1 82.9 - 93.1 fL [facility] Mean Cell Hemoglobin 31.8 27.5 - 32.1 pg [facility] Mean Cell Hemoglobin Concentration 34.5 32.0 - 35.7 g/dL [facility] Platelet 118(L) 145 - 357 x10(3)/mc L [facility] RDW Standard Deviation 47.8(H) 36.0 - 45.0 fL [facility] RDW coefficient of variation 14.3(H) 11.4 - 13.8 % [facility] Mean Platelet Volume 10.6 7.6 - 12.9 fL [facility] NRBC% auto 0.0 % [facility] NRBC Absolute 0.000 0.000 - 0.000 x10(3)/mc L [facility] Blood 11/26/2023 10:3 0 AM EST 11/26/2023 11:21 AM EST Narrative Resulting Agency Comment Spec In Lab Bernard Linares MD HEMATOLOGY ORDERABLE S Performing Organization Address City/[facility]/ZIP Co de Phone Number [facility] [address] * (ABNORMAL) POCT Glucose (11/26/2023 9:11 AM EST) Glucose, POC 209(H) 65 - 199 mg/dL [facility] Comment: Supplemental ranges: <140 mg/dL before meals <180 mg/dL all other times of the day Blood 11/26/2023 9:11 AM EST 11/26/2023 9:11 AM EST Bernard Linares MD POINT OF CARE TEST O RDERABLES Performing Organization Address [facility] Co de Phone Number [facility] [address] documented in this encounter Visit Diagnoses Diagnosis [...] (New Bag - Prov ider: Nick Maldonado, DIVISION MANAGER) PRN Medication Order 11/24/2023 11/25/2023 11/26/2023 HYDROmorphone [...] Routine 1312 (Given - Provid er: Maricruz Biggs, ROSENDO - Comment: ANESTHESIA OK TO ADMIN; PT [...] Routine documented in this encounter Care Teams Poultry Vaccinator Relationship Specialty Start Date End Date Veronica Campbell APRN [address] [place] [address] PCP - General Family Medicine 01/18/22 documented as of this encounter
--- OUTSIDE RECORDS SUMMARY | 2024-10-18 15:32 | XMS_ITS | Encounter Summary ---
[place] [address] Care Team Providers Care Ict Project Manager Name Role Phone Veronica Campbell APRN Primary Care Provider [phone] Encounter Details Date Type Department Care Team (Late st Contact Info) Description 07/27/2024 Telephone [place] [phone] Rosalie Thakur, RN Social History Tobacco Use Types Packs/Day [...] from your doctor or pharmacy? Rarely 04/19/2024 [facility] Utilities Answer Date Recorded In the past 12 months has e electric, gas, oil, or water company [...] the money to buy more. Never true 07/24/20 24 Within the past 12 months, t [...] any time in the past 12 m [facility], were you homeless or living in a residential (including now)? No 04/19/2024 Sex and Gender Information Value Date Recorded Sex Assigned at Not on file Gender Identity Not on file Sexual Orientation Not on file documented as of this encounter Miscellaneous Notes * Telephone Encounter - Rosalie Thakur RN - 07/27/2024 10:05 AM EDTSummary: RN called patient in response to [facility] message reporting epistaxis. Reason for Call: No chief complaint on file. Patient reports episodes of epistaxis Past medical history which may be related to reason for call: Patient is followed by ENT for CRS, s/p ESS and septoplasty on 11/29/23. Nursing Assessment: Patient identity verified x 3. Patient reports two instances of nosebleeds, oneoccurring overnight 07/26/24, and the other this morning. Informs bleeding stopped within a few minutes after direct pressure applied. RN assessed for symptoms: Patient is not currently experiencing symptom. Patient denies dizziness, lightheadedness, vision changes, SOB, pain, injury, or evidence of viral illness. Disposition: Data Unavailable Patient to continue to monitor for return of symptom. Worsening Symptoms: Patient instructed to seek urgent care should symptom return and he is unable to stop bleeding with direct pressure alone. Instructed to seek emergency care should nosebleed recurand symptoms of dizziness, lightheadedness, SOB. Patient care advice summary and review: Reviewed symptoms to watch for, when to seek care, process for direct pressure to stop nosebleed. Guided to use home humidifier to prevent nasal dryness. Informed would relay message to provider and encouraged to reach out to scheduling to arrange recommendedfollow-up. Patient reports good understanding of plan and informs will arrange follow-up. documented in this encounter Plan of Treatment Upcoming Encounters Date Type Department Care Team (Late st Contact Info) Description 11/09/2024 10:40 AM EST Office Visit Cardiology at [address] [address] Pablito Hunt MD [facility] [address] 03/20/2025 3:00 PM EDT Office Visit Dermatology at [facility] [address] [place] [address] Jeremiah Preston MD [facility] DR [place] [address] documented as of this encounter Visit Diagnoses Not on filedocumented in this encounter Care Teams Ict Project Manager Relationship Specialty Start Date End Date Veronica Campbell APRN [address] [place] [address] PCP - General Family Medicine 01/18/22 documented as of this encounter
--- OUTSIDE RECORDS SUMMARY | 2024-10-18 15:32 | XMS_ITS | Encounter Summary ---
Author Organization [facility] Address [address] [place] [address] Care Team Providers Care Mutual Fund Sales Agent Name Role Phone Unavailable Primary Care Provider Unavailabl e Encounter Details Date Type Department Care Team (Late st Contact Info) Description 01/08/2004 Results Only [facility] [address] [place] [address] Lisa Swartz MD [address] [place] [address] Social History Tobacco Use Types [...] ? CONRAD VERA ? Accession #: ? [id number] ? : ? 1955 (Age: 48) ??M [...] ??There is no evidence of vasculitis. ??(Dr. Guzman)/[facility] Microscopic Description: ? Sections consist of two [...] vascular congestion and slight erythrocyte extravasation. ??(Dr. Guzman)/[facility] Document reviewed and electronically signed by: Meli [...] DARWIN CARABALLO 01/08/2004 01/09/2004 15: 18 EDT us Lisa Swartz MD PATHOLOGY ORDERABLES Final Result DARWIN CARABALLO [address] [place] [address] documented in this encounter Visit Diagnoses Not on filedocumented in this encounter
--- OUTSIDE RECORDS SUMMARY | 2024-10-18 15:32 | XMS_ITS | Encounter Summary ---
Author Organization [facility] [place] [address] Care Team Providers Care Outdoor Adventure Leader Name Role Phone Veronica Campbell CHRISTEL Primary Care Provider [phone] Encounter Details Date Type Department Care Team [...] 10:40 AM EST Office Visit Cardiology at [address] [address] Pablito Hunt MD [facility] [place] [address] 03/20/2025 3:00 PM EDT Office Visit Dermatology at [facility] [address] [place] [address] Jeremiah Preston MD [facility] DR YARA WHITE[address]-[place] [address] documented as of this encounter Visit Diagnoses Not on filedocumented in this encounter Care Teams Outdoor Adventure Leader Relationship Specialty Start Date End Date Veronica Campbell APRN [address] [place] [address] PCP - General Family Medicine 01/18/22 documented as of this encounter
--- OUTSIDE RECORDS SUMMARY | 2024-10-18 15:33 | XMS_ITS | Encounter Summary ---
Author Organization [facility] Address [facility] [place] [address] Care Team Providers Care Polisher Sand Name Role Phone Veronica Campbell APRN Primary Care Provider [phone] Reason for Visit * Consultation (Priority 3) - Closed Specialty Diagnoses / Procedures Referred By Jason garcia Referred To Contact Dermatology Diagnoses Skin exam, screening for cancer FSE Veronica Campbell APRN [address] [place] [address] [facility] Dermatology [address] [place] [address] Referral ID Status Reason Start Date Expiration Date V isits Requested Visits Authorized [id number] Closed Consult, Test & Treat PCP Updated and/or Approved 03/16/2023 03/15/2024 12 12 Encounter Details Date Type Department Care Team (Late st Contact Info) Description 09/08/2023 2:00 PM EST Office Visit Dermatology at [facility] [address] [place] [address] Kiara Santana MD [facility] [address] [place] [place] [address] Del Cid angioma; Seborrheic keratosis; [...] continue to monitor. #. Seborrheic Keratoses - [place]-brown papules/plaques with waxy, stuck-on appearance scattered on [...] - Ill-defined, gritty papule(s) on the right religion x1, left helix x1, left frontal scalp [...] 1 Year for FSE []Note routed to estimator and drafter [x]Recall placed in scheduling system []Appointment scheduled at checkout Scribe attestation: Ok Delgado RN has performed the documentation for this encounter in the presence of and acting as a scribe for Kiara Santana MD. I performed the above scribed service and agree with the accuracy of the documentation in this encounter. Reviewed and signed by: Kiara Santana MD D[facility] documented in this encounter Plan of Treatment Upcoming Encounters Date Type Department Care Team (Late st Contact Info) Description 11/09/2024 10:40 AM EST Office Visit Cardiology at [address] [address] Pablito Hunt MD [facility] [place] [address] 03/20/2025 3:00 PM EDT Office Visit Dermatology at [facility] [address] [place] [address] Jeremiah Preston MD [facility] [address] [place] [address] Scheduled Referrals Name Type Priority Associated Diagnoses Order Schedule Referral to Dermatology Outpatient Referral Routine Skin exam, screening for cancer Ordered: 03/16/2023 documented as of this encounter Visit Diagnoses Diagnosis Del Cid angioma Nevus, non-neoplastic Seborrheic keratosis Other seborrheic keratosis Multiple benign nevi Benign neoplasm of skin, site unspecified Actinic keratosis documented in this encounter Care Teams Polisher Sand Relationship Specialty Start Date End Date Veronica Campbell APRN [address] [place] [address] PCP - General Family Medicine 01/18/22 documented as of this encounter
--- OUTSIDE RECORDS SUMMARY | 2024-10-18 15:33 | XMS_ITS | Encounter Summary ---
Author Organization [facility] [place] [address] Care Team Providers Care Patient Partner Name Role Phone Veronica Campbell CHRISTEL Primary Care Provider [phone] Encounter Details Date Type Department Care Team (Late st Contact Info) Description 08/10/2023 [place] [address] Ashley Van Social History Tobacco Use Types [...] 10:40 AM EST Office Visit Cardiology at [address] [address] Pablito Hunt MD [facility] [place] [address] 03/20/2025 3:00 PM EDT Office Visit Dermatology at [facility] [address] [place] [address] Jeremiah Preston MD [facility] [address] [place] [address] documented as of this encounter Visit Diagnoses Not on filedocumented in this encounter Care Teams Patient Partner Relationship Specialty Start Date End Date Veronica Campbell APRN [address] [place] [address] PCP - General Family Medicine 01/18/22 documented as of this encounter
--- OUTSIDE RECORDS SUMMARY | 2024-10-18 15:33 | XMS_ITS | Encounter Summary ---
Author Organization [facility] Address [facility] [place] [address] Care Team Providers Care Chain Hoist Operator Name Role Phone Adrian Veronica CHRISTEL Primary Care Provider [phone] Encounter Details Date Type Department Care Team (Late st Contact Info) Description 11/10/2023 4:00 PM EST Office Visit Cardiology at [address] [address] Pablito Hunt MD [facility] [place] [address] Coronary artery disease due to lipid rich [...] from the original note were not included. [facility] [place] [address] Referring Provider: Veronica Campbell APRN [address] [place] [address] Reason for Consultation / Chief Complaint: Dyspnea [...] Social History: no smoking, etoh or drugs, managing member. No regular exercise. Family History: Father of [place], mother's extended family with heart failure ALLERGIES: Allergies Allergen Reactions Red Blood Cells Antibodies-Difficult to Crossmatch DO NOT REMOVE Please contact the Blood Bank at [phone] for questions. Sulfamethoxazole Other (See Comments) Trimethoprim [...] aday, Disp: , Rfl: FreeStyle Elma 2 [place] Misc, 1 each by Other route daily. [...] PER WEEK, Disp: , Rfl: Dexcom G6 Side Stitcher Misc, 1 each by Misc.(Non-Drug; Combo Route) [...] 01/2022: Sinus rhythm with PVCs, prior inferior [place] TTE 12/2021: Normal biventricular systolic function, EF [...] 10:40 AM EST Office Visit Cardiology at [address] [address] Pablito Hunt MD [facility] [place] [address] 03/20/2025 3:00 PM EDT Office Visit Dermatology at [address] [address] Jeremiah Preston MD [facility] DR [place] [place] [address] documented as of this encounter Visit Diagnoses Diagnosis Coronary artery disease due to lipid rich plaque documented in this encounter Care Teams Chain Hoist Operator Relationship Specialty Start Date End Date Veronica Campbell APRN [address] [place] [address] PCP - General Family Medicine 01/18/22 documented as of this encounter
--- OUTSIDE RECORDS SUMMARY | 2024-10-18 15:33 | XMS_ITS | Encounter Summary ---
Author Organization [facility] [place] [address] Care Team Providers Care Sash Assembler Name Role Phone Veronica Campbell CHRISTEL [...] 10:40 AM EST Office Visit Cardiology at [address] [address] Pablito Hunt MD [facility] [place] [address] 03/20/2025 3:00 PM EDT Office Visit Dermatology at [facility] [address] [place] [phone] Jeremiah Preston MD [facility] [address] [place] [address] documented as of this encounter Visit Diagnoses Not on filedocumented in this encounter Care Teams Sash Assembler Relationship Specialty Start Date End Date Veronica Campbell APRN [address] [place] [address] PCP - General Family Medicine 01/18/22 documented as of this encounter
--- OUTSIDE RECORDS SUMMARY | 2024-10-18 15:33 | XMS_ITS | Encounter Summary ---
Author Organization [facility] [place] [address] Care Team Providers Care Installation And Repair Technician Name Role Phone Veronica Campbell CHRISTEL Primary Care Provider [phone] Encounter Details Date Type Department Care Team [...] 10:40 AM EST Office Visit Cardiology at [address] [address] Pablito Hunt MD [facility] [place] [address] 03/20/2025 3:00 PM EDT Office Visit Dermatology at [facility] [address] [place] [phone] Jeremiah Preston MD [facility] DR Y[address] [place] [address] documented as of this encounter Visit Diagnoses Not on filedocumented in this encounter Care Teams Installation And Repair Technician Relationship Specialty Start Date End Date Veronica Campbell APRN [address] [place] [address] PCP - General Family Medicine 01/18/22 documented as of this encounter
--- OUTSIDE RECORDS SUMMARY | 2024-10-18 15:33 | XMS_ITS | Encounter Summary ---
Author Organization [facility] [place] [address] Care Team Providers Care Disability Liaison Officer Name Role Phone AdrianVeronica CHRISTEL Primary Care Provider [phone] Reason for Referral * Consultation (Routine) - Closed Specialty Diagnoses / Procedures Referred By Jason gracia Referred To Contact Pre-Admission Testing Diagnoses Chronic pansinusitis Hypertrophy of nasal turbinates Deviated nasal septum Coronary artery disease due to lipid rich plaque Bernard Linares MD [facility] [place] [address] [facility] [place] [address] [address] Referral ID Status Reason Start Date Expiration Date V isits Requested Visits Authorized [id number] Closed Consult Only 10/25/2023 10/24/2024 1 1 Reason for Visit * Reason Comments Sinusitis Noticed since end february * Consultation (Routine) - Closed Specialty Diagnoses / Procedures Referred By Jason garcia Referred To Contact Otolaryngology Diagnoses Chronic sinusitis, unspecified location Indra Man MD [address] [place] [address] [place] [address] Bernard Linares MD [facility] [place] [address] Referral ID Status Reason Start Date Expiration Date V isits Requested Visits Authorized [id number] Closed Consult, Test & Treat 10/14/2023 10/13/2024 1 1 Encounter Details Date Type Department Care Team (Late st Contact Info) Description 10/25/2023 11:00 AM EST Office [place] [address] Bernard Linares MD [facility] [place] [address] Chronic pansinusitis (Primary Dx); Hypertrophy of nasal [...] sale packets such as those sold by [employer] can be purchased at most drug stores, [...] without definite evidence of any fungal ball. [place] 16. Patient Active Problem List Diagnosis Code [...] PCI performed by Pablito Hunt MD at [facility] CATH LABS PRO [facility] EB[facility] GUIDED SAMPL 3/> NODE STATION/STRUX N/A 07/29/2023 BRONCH, W ENDOBRONCHIAL ULTRASOUND (EBUS) GUIDED SAMPLING, 3+ NODES (WRVU 4.96) performed by Toro Gonzales MD at [facility] ENDOSCOPY PRO COLONOSCOPY, DIAGNOSTIC N/A 09/02/2015 COLONOSCOPY, DIAGNOSTIC performed by Roula Saez MD at [facility] ENDOSCOPY Current Outpatient Medications Medication Sig Dispense [...] (before breakfast). One a day Dexcom G6 Buggy Ladle Tender Misc 1 [facility] by [facility]Non-Drug; Combo Route) route continuous. Use as directed [...] E11.9 1 each 3 FreeStyle Elma 2 [place] Misc 1 each by Other route daily. [...] REMOVE Please contact the Blood Bank at [phone] for questions. Sulfamethoxazole Other (See Comments) Trimethoprim [...] to perform endoscopy. Procedure: Nasal Endoscopy (CPT 31866) Indication: Symptoms suggestive of chronic rhinosinusitis. Due [...] CT screen shot: Osteomeatal complex obstruction bilateral Irwin-Amilcar Score Scores Each Sinus 0 - 2, [...] with SCT score 11, NOSE score 45, [place] score 16. We reviewed his medical co-morbidities [...] review by our anesthesia team here at [facility] for any additional considerations prior to undergoing [...] including sphenoidotomy with removal of tissue (CPT 56581-46) Bilateral frontal sinusotomy (CPT 11344-66) Bilateral maxillary antrostomy with removal of tissue (CPT 68396-52) Septoplasty (CPT 53605) Bilateral outfracture of inferior turbinates (CPT 13602-91) Stereotactic image guidance (CPT 27463) Thank you very much for asking me to see this very pleasant patient. Sincerely, Bernard Linares MD Rhinology, Endoscopic Sinus & Skull Base Surgery Division of Otolaryngology - [place] [address] [facility] Over 50% of the total face to [...] 10:40 AM EST Office Visit Cardiology at [address] [address] Pablito Hunt MD [facility] [place] [address] 03/20/2025 3:00 PM EDT Office Visit Dermatology at [address] [address] Jeremiah Preston MD [facility] [place] [address] Scheduled Referrals Name Type Priority Associated Diagnoses [...] sinuses documented in this encounter Care Teams Disability Liaison Officer Relationship Specialty Start Date End Date Veronica Campbell APRN [address] [place] [address] PCP - General Family Medicine 01/18/22 documented as of this encounter
--- OUTSIDE RECORDS SUMMARY | 2024-10-18 15:33 | XMS_ITS | Encounter Summary ---
Author Organization [facility] [place] [address] Care Team Providers Care Perch Machine Inspector Name Role Phone Veronica Campbell CHRISTEL Primary Care Provider [phone] Encounter Details Date Type Department Care Team [...] 10:40 AM EST Office Visit Cardiology at [address] [address] Pablito Hunt MD [facility] [place] [address] 03/20/2025 3:00 PM EDT Office Visit Dermatology at [facility] [address] [place] [phone] Jeremiah Preston MD [facility] DR YARA [place] [address] documented as of this encounter Visit Diagnoses Not on filedocumented in this encounter Care Teams Perch Machine Inspector Relationship Specialty Start Date End Date Veronica Campbell APRN [address] [place] [address] PCP - General Family Medicine 01/18/22 documented as of this encounter
--- OUTSIDE RECORDS SUMMARY | 2024-10-18 15:33 | XMS_ITS | Encounter Summary ---
Author Organization [facility] [place] [address] Care Team Providers Care Grab Hooker Name Role Phone Veronica Campbell CHRISTEL Primary Care Provider [phone] Encounter Details Date Type Department Care Team (Late st Contact Info) Description 11/24/2023 [place] [phone] Heidy Ibarra PA [facility] [address] Social History Tobacco Use Types Packs/Day Years [...] AM EST Office Visit Cardiology at [address] [phone] Pablito Hunt MD [facility] [place] [address] 03/20/2025 3:00 PM EDT Office Visit Dermatology at [facility] [address] [place] [address] Jeremiah Preston MD [facility] [place] [address] documented as of this encounter Visit Diagnoses Not on filedocumented in this encounter Care Teams Grab Hooker Relationship Specialty Start Date End Date Veronica Campbell APRN [address] [place] [address] PCP - General Family Medicine 01/18/22 documented as of this encounter
--- OUTSIDE RECORDS SUMMARY | 2024-10-18 15:33 | XMS_ITS | Encounter Summary ---
Author Organization [facility] [place] [address] Care Team Providers Care Livestock Judging Coach Name Role Phone Veronica Campbell CHRISTEL Primary Care Provider [phone] Encounter Details Date Type Department Care Team (Late st Contact Info) Description 07/22/2023 Telephone [place] [address] Ashley Van Social History Tobacco Use Types [...] 10:40 AM EST Office Visit Cardiology at [address] [address] Pablito Hunt MD [facility] [place] [address] 03/20/2025 3:00 PM EDT Office Visit Dermatology at [facility] [address] [place] [phone] Jeremiah Preston MD [facility] [place] [address] documented as of this encounter Visit Diagnoses Not on filedocumented in this encounter Care Teams Livestock Judging Coach Relationship Specialty Start Date End Date Veronica Campbell APRN [address] [place] [address] PCP - General Family Medicine 01/18/22 documented as of this encounter
--- OUTSIDE RECORDS SUMMARY | 2024-10-18 15:33 | XMS_ITS | Encounter Summary ---
Author Organization [facility] [place] [address] Care Team Providers Care Interior Assemblies Developer Prover Name Role Phone Veronica Campbell CHRISTEL Primary Care Provider [phone] Reason for Visit * Reason Onset Date Comments Pre Procedure Call 07/28/2023 Bronchoscopy Encounter Details Date Type Department Care Team (Late st Contact Info) Description 07/28/2023 [place] [phone] Shabnam Dugan RN Pre Procedure Call (Bronchoscopy [...] minutes. [x] Informed patient they must have operator and truck driver who accompanies them into and to [...] EL Bryson, RN Department of Pulmonary 5C, [facility] Pager: [phone] documented in this encounter Plan of Treatment Upcoming Encounters Date Type Department Care Team (Late st Contact Info) Description 11/09/2024 10:40 AM EST Office Visit Cardiology at [address] [address] Pablito Hunt MD [facility] [place] [address] 03/20/2025 3:00 PM EDT Office Visit Dermatology at [facility] [address] [place] [address] Jeremiah Preston MD [facility] [place] [address] documented as of this encounter Visit Diagnoses Not on filedocumented in this encounter Care Teams Interior Assemblies Developer Prover Relationship Specialty Start Date End Date Veronica Campbell APRN [address] [place] [address] PCP - General Family Medicine 01/18/22 documented as of this encounter
--- OUTSIDE RECORDS SUMMARY | 2024-10-18 15:33 | XMS_ITS | Encounter Summary ---
Author Organization [facility] Address [place] [address] Care Team Providers Care Contact Person Name Role Phone Veronica Campbell APRN Primary Care Provider Reason for Visit * Consultation (Urgent) - Closed Specialty Diagnoses / Procedures Referred By Jason garcia Referred To Contact Pulmonology Diagnoses Thoracic lymphadenopathy Veronica Campbell APRN [address] [place] [address] [facility] [address] [place] [phone] Referral ID Status Reason Start Date Expiration Date Visits Re quested Visits Authorized [id number] Closed 07/22/2023 07/21/2024 1 1 Encounter Details Date Type Department Care Team (Late st Contact Info) Description 07/27/2023 11:00 AM EDT Office [place] [address] Paulie Velazquez MD [facility] [place] [address] Mediastinal adenopathy; Multiple lung nodules [...] low 80s during a trip to the [facility], even at 6,000 feet. Evaluation showed a [...] One aday, Disp: , Rfl: Dexcom G6 Jde Developer Misc, 1 each by Misc.(Non-Drug; Combo Route) [...] 1 each, Rfl: 3 FreeStyle Elma 2 [place] Misc, 1 each by Other route daily. [...] REMOVE Please contact the Blood Bank at [phone] for questions. 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 Exam: [...] 07/14/23: WBC 6.45, Hb 12.9, Plt 125 Spak-6-olfoedcqywtgj 4.1 (1.21-2.70), Cr 1.3, Alb 3.2, HCO3 [...] Section of Pulmonary and Critical Care Medicine [address] Room [address] [place] [address] Phone [facility] Generic: [phone] [email or web address] Pager #[phone] I independently reviewed prior lab tests, radiology [...] 10:40 AM EST Office Visit Cardiology at [address] [address] Pablito Hunt MD [facility] [place] [address] 03/20/2025 3:00 PM EDT Office Visit Dermatology at [facility] [address] [place] [address] Jeremiah Preston MD [facility] [address] [place] [address] documented as of this encounter Visit Diagnoses Diagnosis Mediastinal adenopathy Enlargement of lymph nodes Multiple lung nodules on CT documented in this encounter Care Teams Contact Person Relationship Specialty Start Date End Date Veronica Campbell APRN [address] [place] [address] PCP - General Family Medicine 01/18/22 documented as of this encounter
--- OUTSIDE RECORDS SUMMARY | 2024-10-18 15:33 | XMS_ITS | Encounter Summary ---
Author Organization [facility] Address [facility] [place] [address] Care Team Providers Care Baggage Checker Name Role Phone Veronica Campbell APRN Primary Care Provider [phone] Reason for Visit * Consultation (Routine) - Closed Specialty Diagnoses / Procedures Referred By Jason garcia Referred To Contact Pre-Admission Testing Diagnoses Chronic pansinusitis Hypertrophy of nasal turbinates Deviated nasal septum Coronary artery disease due to lipid rich plaque Bernard Linares MD [facility] [place] [address] [facility] [place] [address] [address] Referral ID Status Reason Start Date Expiration Date V isits Requested Visits Authorized [id number] Closed Consult Only 10/25/2023 10/24/2024 1 1 Encounter Details Date Type Department Care Team (Late st Contact Info) Description 10/29/2023 10:00 AM EST [place] [address] Social History Tobacco Use Types [...] 10:40 AM EST Office Visit Cardiology at [address] [address] Pablito Hunt MD [facility] [place] [address] 03/20/2025 3:00 PM EDT Office Visit Dermatology at [facility] [address] [place] [address] Jeremiah Preston MD [facility] [place] [address] Scheduled Referrals Name Type Priority Associated Diagnoses Order Schedule Anesthesia Pre-Operative Evaluation Referral Outpatient Referral Routine Chronic pansinusitis Hypertrophy of nasal turbinates Deviated nasal septum Coronary artery disease due to lipid rich plaque Ordered: 10/25/2023 documented as of this encounter Visit Diagnoses Not on filedocumented in this encounter Care Teams Baggage Checker Relationship Specialty Start Date End Date Veronica Campbell APRN [address] [place] [address] PCP - General Family Medicine 01/18/22 documented as of this encounter
--- OUTSIDE RECORDS SUMMARY | 2024-10-18 15:33 | XMS_ITS | Encounter Summary ---
Author Organization [facility] [place] [address] Care Team Providers Care Tape Weaver Name Role Phone Veronica Campbell APRN Primary Care Provider [phone] Encounter Details Date Type Department Care Team (Late st Contact Info) Description 10/26/2023 Ancillary Procedure Radiology Library at [facility] [place] [address] Veronica Campbell APRN [address] [place], [place] [address] Social History Tobacco Use Types Packs/Day Years [...] 10:40 AM EST Office Visit Cardiology at [address] [place] [address] Pablito Hunt MD [facility] [place] [address] 03/20/2025 3:00 PM EDT Office Visit Dermatology at [facility] [address] [place] [address] Jeremiah Preston MD [facility] [place] [address] documented as of this encounter Procedures Procedure Name Priority Date/Time Associated Diagnosis Comments FILM LIBRARY STORAGE ONLY MR SHOULDER Routine 10/26/2023 12:00 AM EST documented in this encounter Results * Film Library- Storage Only MR Shoulder (10/26/2023 12:00 AM EST) Narrative [facility] - 11/08/2023 5:00 PM EST This exam is auto-finalizing. It's purpose is for storage only. Veronica Campbell APRN [employer]Al[facility] FILM LIBRARY ORD ERABLES [place], [place] documented in this encounter Visit Diagnoses Not on filedocumented in this encounter Care Teams Tape Weaver Relationship Specialty Start Date End Date Veronica Campbell APRN [address] [place] [address] PCP - General Family Medicine 01/18/22 documented as of this encounter
--- OUTSIDE RECORDS SUMMARY | 2024-10-18 15:33 | XMS_ITS | Encounter Summary ---
[place] [address] Care Team Providers Care Plate Keeper Name Role Phone Veronica Campbell APRN Primary Care Provider [phone] Encounter Details Date Type Department Care Team (Late st Contact Info) Description 11/01/2023 Telephone [place] [address] Rosalie Thakur RN Social History Tobacco Use [...] 10:40 AM EST Office Visit Cardiology at [address] [address] Pablito Hunt MD [facility] [place] [address] 03/20/2025 3:00 PM EDT Office Visit Dermatology at [facility] [address] [place] [address] Jeremiah Preston MD [facility] [place] [address] documented as of this encounter Visit Diagnoses Not on filedocumented in this encounter Care Teams Plate Keeper Relationship Specialty Start Date End Date Veronica Campbell APRN [address] [place] [address] PCP - General Family Medicine 01/18/22 documented as of this encounter
--- OUTSIDE RECORDS SUMMARY | 2024-10-18 15:33 | XMS_ITS | Encounter Summary ---
Author Organization [facility] Address [facility] [place] [address] Care Team Providers Care Property Maintenance Technician Name Role Phone Veronica Campbell CHRISTEL Primary Care Provider [phone] Encounter Details Date Type Department Care Team (Latest Contact Info) Description 07/29/2023 11:52 AM EDT - 07/29/2023 2:48 PM EDT Hospital Encounter [place] [address] StewarterToro MD [facility] [place] [address] Discharge Disposition: Home Social History Tobacco Use [...] your doctor if you can take an jizl-flg-tuottlt medicine. If you think your pain medicine [...] occurs, please contact your Doctor. Please call [phone] before 8pm Mon-Fri with problems, questions or concerns. If you call after 8pm or on weekends, call the Hospital at [phone] and ask to speak to the [employer] regional liaison and the dope house operator helper will contact that person for you. When should you call for help? Call [phone] anytime you think you may need emergency [...] any problems. Where can you learn more? [facility] View your After Visit Summary and more online at [email or web address] If you would like to provide feedback about your hospital experience, please call the Office of Patient and Family Relations at . If you have received this After Visit Summary in error, please immediately return it in person to the department, or notify the [facility] Privacy Office by calling toll free at between the hours of 8AM and 5PM to arrange for our retrieval of the documents at no cost to you. Content Version: 12.2 ?? [phone] [employer]. Care instructions adapted under license by [facility]. If you have questions about a medical condition or this instruction, always ask your healthcare professional. [employer] disclaims any warranty or liability for your [...] by mouth daily. 07/16/2023 FreeStyle Elma 2 [place] MiscIndications:diabet es mellitus 1 each by Other route daily. Indications: diabetes 1 each 08/03/2022 FreeStyle Elma 2 Sensor KitIndications:diabete s mellitus 1 each by Other route daily. Indications: diabetes 6 kit 3 08/03/2022 icosapent ethyL (Vascepa) 1 gram CapsuleIndications:Cor onary artery disease, unspecified vessel or lesion type, unspecified whether angina present, unspecified whether um[place]illa tribe or transplanted heart Take 2 capsules by [...] times daily (with meals). 12/12/2010 Dexcom G6 [employer] Misc 1 each by [facility]Non-Drug; Combo Route) route continuous. Use as directed for continuous glucose monitoring. E11.9 1 each 08/06/2022 11/23/2023 Dexcom G6 Sensor Device 1 each [place] [facility]Non-Drug; Combo Route) route continuous. Use as directed for continuous glucose monitoring. Change every 10 days. E11.9 9 each 3 08/06/2022 11/23/2023 Dexcom G6 Transmitter Device 1 each [place] [facility]Non-Drug; Combo Route) route continuous. Use as directed [...] Section of Pulmonary & Critical Care Pager: [phone] documented in this encounter Miscellaneous Notes * [...] and moderate thin/clear secretions bilaterally. Bronchoalveolar Lavage (67711): The bronchoscope was wedged into the superior segment of the left lower lobe (LB6). A total of 100 mL of saline was instilled and a total of 25 mL of cellular fluid was aspirated. This was sent for analysis. EBUS-TBNA (3 sites): The Olympus EBUS ([id number]) scope was inserted, lymph node inspection undertaken [...] Core Biopsies (1 sites): The Olympus EBUS ([id number]) scope was inserted and inspection undertaken. The [...] time to complete (modifier 22). Therapeutic Suctioning (86137): A significant portion of operative time was [...] Section of Pulmonary & Critical Care Pager: [phone] documented in this encounter Plan of Treatment Upcoming Encounters Date Type Department Care Team (Late st Contact Info) Description 11/09/2024 10:40 AM EST Office Visit Cardiology at [address] [address] Pablito Hunt MD [facility] [address] 03/20/2025 3:00 PM EDT Office Visit Dermatology at [facility] [address] [place] [address] Jeremiah Preston MD [facility] [address] [place] [address] documented as of this encounter Procedures Procedure Name Priority Date/Time Associated Diagnosis Comments B-CELL CLONALITY STUDIES Routine 023 5:11 PM EST POCT GLUCOSE Routine 07/29/2023 2:16 PM EDT NON-COMPLIANCE CONSULTANT FINAL REPORT Routine 07/29/2023 1:37 PM EDT NON-COMPLIANCE CONSULTANT FINAL REPORT Routine 07/29/2023 1:37 PM EDT NON-COMPLIANCE CONSULTANT FINAL REPORT Routine 07/29/2023 1:37 PM EDT [...] CYTOMETRY (BLOOD) Routine 07/29/2023 1:10 PM EDT NON-COMPLIANCE CONSULTANT FINAL REPORT Routine 07/29/2023 1:10 PM EDT [...] CYTOPATHOLOGY NON-GYNECOLOGICAL Routine 07/29/2023 1:06 PM EDT [facility] Guided Sampl 3/> Node Station/Strux ([id number]) 07/29/2023 12:51 PM EDT Lymphadenopathy POCT GLUCOSE Routine 07/29/2023 12:25 PM EDT documented in this encounter Results * B-cell clonality studies (08/02/2023 5:11 PM EST) B-cell Result B-cell polyclonal [facility] B-cell Interp B-cell Receptor Clonality Assay INDICATION FOR STUDY: ??Concern for B-cell neoplasm ANALYSIS: ??Sequence analysis of IGH FR1/FR2/FR3 regions for rearrangements SPECIMEN: ??[id number], A1 RESULTS: ??NEGATIVE sequencing results for clonality in IGH. INTERPRETATION: No clonal IGH sequences were identified in this study. METHODS: Genomic DNA was extracted from whole blood or bone marrow, and analyzed with the PPLCONNECT IGH (FR1, FR2, & FR3) Assays. DNA [...] characteristics have been verified by the Clinical [employer] ([facility] Laboratory at [facility]. [facility] Tissue 08/02/2023 5:11 PM EST 08/04/2023 1:59 PM EST Narrative Resulting Agency Comment Spec In Lab Toro Gonzales MD MOLECULAR ORDERABLES Performing Organization Address City/[facility]/ZIP Co de Phone Number [facility] [place] [address] * POCT Glucose (07/29/2023 2:16 PM EDT) Glucose, POC 126 65 - 199 mg/dL [facility] Comment: Supplemental ranges: <140 mg/dL before meals <180 mg/dL all other times of the day Blood 07/29/2023 2:16 PM EDT 07/29/2023 2:16 PM EDT Toro Gonzales MD POINT OF CARE TEST O RDERABLES Performing Organization Address [facility] Co de Phone Number [facility] [place] [address] * Non-Adult Live In Caregiver Final Report (07/29/2023 1:37 PM EDT) Diagnosis Discussion [id number] ? Location: 4T; EA08; A The signing pathologist has (i) examined the relevant preparation(s) for the specimen(s) and (ii) rendered or confirmed the diagnosis(es). . ? Non-Adult Live In Caregiver Final DIAGNOSIS See Discussion Electronically signed by: ?Denilson Titus DO Verified: ??08/04/2023 19:36 ??Pathologist Performed at: ??-[facility] Dept. of Pathology, [place] [address] Major Gifts Manager: Filipe Hoang MD, FCAP, ??CLIA Certificate: [id number] DISCUSSION Lymph node: station 4R (EBUS-guided FNA) [...] were developed by the clinical laboratory at [facility]. Antibody specificities have been verified on tissues [...] Preparation: Cell Block 1. 08/04/2023 7:36 PM EST [facility] LYMPH NODE SPECIMEN / Unknown 07/29/2023 1:37 PM EDT 07/29/2023 1:37 PM EDT Toro Gonzales MD PATHOLOGY/CYTOLOGY O RDERABLES [facility] [place] [address] [facility] [place] [address] * Non-Adult Live In Caregiver Final Report (07/29/2023 1:37 PM EDT) Diagnosis Discussion [id number] ? Location: 4T; EA08; A The signing pathologist has (i) examined the relevant preparation(s) for the specimen(s) and (ii) rendered or confirmed the diagnosis(es). . ? Non-Adult Live In Caregiver Final DIAGNOSIS See Discussion Electronically signed by: ?Tacho FREEMAN Denilson Chaudhari Verified: ??08/02/2023 11:35 ??Pathologist Performed at: ??-[facility] Dept. of Pathology, [place] [address] Major Gifts Manager: Filipe Hoang MD, AP, ??IA Certificate: [id number] DISCUSSION Lymph node: station 11R (EBUS-guided FNA) - - Lymphoid tissue without overt evidence of lymphoma (see Comment). Comment: Fragments of lymphoid tissue and cartilage present; more extensive testing done of more adequate samples (see [id number] and [id number]). (Cell block was examined.) CLINICAL INFORMATION Specimen [...] Cell Block 1. 08/02/2023 11:35 AM EST [facility] LYMPH NODE SPECIMEN / Unknown 07/29/2023 1:37 PM EDT 07/29/2023 1:37 PM EDT Toro Gonzales MD PATHOLOGY/CYTOLOGY O RDERABLES [facility] [place] [address] [facility] [place] [address] * Non-Adult Live In Caregiver Final Report (07/29/2023 1:37 PM EDT) Diagnosis Discussion [id number] ? Location: 4T; EA08; A The signing pathologist has (i) examined the relevant preparation(s) for the specimen(s) and (ii) rendered or confirmed the diagnosis(es). . ? Non-Adult Live In Caregiver Final DIAGNOSIS See Discussion Electronically signed by: ?Denilson Titus DO Verified: ??08/02/2023 11:32 ??Pathologist Performed at: ??-[facility] Dept. of Pathology, [place] [address] Major Gifts Manager: Filipe Hoang MD, FCAP, ??CLIA Certificate: [id number] DISCUSSION Lymph node: station 7 (EBUS-guided FNA) - - Reactive follicular hyperplasia (see Comment) Comment: Sections show follicles with well-formed germinal centers and intact mantle cuffs. Immunostains show an intact immunoarchitechture (see Immunohistochemistry Studies). Concurrent flow cytometry ([id number]) performed on the surgical specimen from this [...] were developed by the clinical laboratory at [facility]. Antibody specificities have been verified on tissues [...] Cell Block 1. 08/02/2023 11:32 AM EST [facility] LYMPH NODE SPECIMEN / Unknown 07/29/2023 1:37 PM EDT 07/29/2023 1:37 PM EDT Toro Gonzales MD PATHOLOGY/CYTOLOGY O LEIF Performing Organization Address City/[facility]/ZIP Co de Phone Number [facility] [address] [place] [address] * Cytopathology Non-Gynecological (07/29/2023 1:37 PM EDT) AP Specimen 07/29/2023 1:37 PM EDT 07/29/2023 1:37 PM EDT Narrative [facility] - 07/29/2023 1:37 PM EDT Specimen requisition ordered. ??Separate Pathology report to follow Toro Gonzales MD PATHOLOGY/CYTOLOGY O LEIF [facility] [place] [address] * Cytopathology Non-Gynecological (07/29/2023 1:37 PM EDT) AP Specimen 07/29/2023 1:37 PM EDT 07/29/2023 1:37 PM EDT Narrative [facility] - 07/29/2023 1:37 PM EDT Specimen requisition ordered. ??Separate Pathology report to follow Toro Gonzales MD PATHOLOGY/CYTOLOGY O LEIF Performing Organization Address [facility] [place] [place] [address] * Cytopathology Non-Gynecological (07/29/2023 1:37 PM EDT) AP Specimen 07/29/2023 1:37 PM EDT 07/29/2023 1:37 PM EDT Narrative [facility] - 07/29/2023 1:37 PM EDT Specimen requisition ordered. ??Separate Pathology report to follow Toro Gonzales MD PATHOLOGY/CYTOLOGY O LEIF Performing Organization Address [facility] [place] [place] [address] * Specimen to Pathology (07/29/2023 1:36 PM EDT) AP Specimen 07/29/2023 1:36 PM EDT 07/29/2023 1:36 PM EDT Narrative [facility] - 07/29/2023 1:36 PM EDT Specimen requisition ordered. ??Separate Pathology report to follow Toro Gonzales MD PATHOLOGY/CYTOLOGY O LEIF Performing Organization Address [facility] [place] [place] [address] * Flow Cytometry Report (07/29/2023 1:35 PM EDT) Pathologist [facility] Flow Cytometry Report [id number] ? Location: 4T; EA08; A The signing [...] malignancies. Correlation with pending morphology (case [id number]) from the biopsy is recommended. Electronically signed by: ?Denilson Titus DO Verified: ??08/02/2023 11:28 ??Pathologist Performed at: ??-[facility] Dept. of Pathology, [place] [address] Major Gifts Manager: Filipe Hoang MD, FCAP, ??CLIA Certificate: [id number] DISCUSSION Cell viability was ~54% as assessed by 7-AAD exclusion. The T-lymphocytes, B- lymphocytes and CD56+ NK cells comprise approx 59%, 39%, 3% of the gated population, respectively. The CD19 positive B-cells have a polytypic expression of surface immunoglobulin light chain ([place]:Lambda ratio at 1.6). The T-cells are an admixture of CD4+ and CD8+ T lymphocytes (ratio of 5.6). No loss or atypical intensity distributions are seen for any unger T antigen (CD2, 3, 4+8, 5, 7). There is no increase in TM13-lhuwqloj/CD3-neg NK cells. Flow analysis is an ancillary study. A definite diagnosis requires correlation with the morphologic features of this process and if necessary, correlation with other ancillary studies like immunohistochemistry, enzyme cytochemistry and/or cyto/ molecular genetics. This test was developed and its performance characteristics determined by the Clinical Flow Cytometry Laboratory at [facility]. It has not been cleared or [...] high complexity clinical laboratory testing. SPECIMEN PROCESSING [id number] Cells for immunophenotypic analysis were derived from [...] male with mediastinal lymphadenopathy, splenomegaly and fatigue. [facility] 07/29/2023 1:35 PM EDT Toro Gonzales MD PATHOLOGY/CYTOLOGY O RDERABLES Performing Organization Address [facility] Co de Phone Number [facility] [place] [address] * Immunophenotyping Flow Cytometry (07/29/2023 1:35 PM EDT) Immunophenotyping Flow See Comment [facility] Comment: When completed by the Pathologist, the Flow Cytometry Report ([id number]) will display under the Pathology Results section within eDH. Other 07/29/2023 1:35 PM EDT 07/29/2023 1:50 PM EDT Narrative Resulting Agency Comment Spec In Lab Toro Gonzales MD HEMATOLOGY ORDERABLE S Performing Organization Address [facility] de Phone Number [facility] [place] [address] * Non-Adult Live In Caregiver Final Report (07/29/2023 1:10 PM EDT) Diagnosis Discussion [id number] ? Location: 4; 08; A The signing pathologist has (i) examined the relevant preparation(s) for the specimen(s) and (ii) rendered or confirmed the diagnosis(es). . ? Non-Adult Live In Caregiver Final DIAGNOSIS See Discussion Electronically signed by: ?Khoi Hutchison MD Verified: ??08/02/2023 13:27 ??Pathologist Performed at: ??-[facility] Dept. of Pathology, [place] [address] Major Gifts Manager: Filipe Hoang MD, AP, ??IA Certificate: [id number] DISCUSSION Bronchial alveolar lavage: Alveolar macrophages, respiratory epithelial cells, reactive pneumocytes, and mixed ??inflammatory cells are present. No overtly cytologically malignant cells seen. The material might not be fully outbound telemarketing representative of the target lesion. Clinical and [...] 1; Cell Block 1. 08/02/2023 1:27 PM [facility] BRONCHIAL STRUCTURE / Unknown 07/29/2023 1:10 PM EDT 07/29/2023 1:10 PM EDT Toor Gonzales MD PATHOLOGY/CYTOLOGY O RDERABLES [facility] [address] [place] [address] * Surgical Pathology Report (07/29/2023 1:10 PM EDT) Final Diagnosis [id number] ? Location: 4T; EA08; A The signing [...] Verified: ??08/23/2023 9:45 ?? Pathologist Performed at: ??-[facility] Dept. of Pathology, [place] [address] Major Gifts Manager: Filipe Hoang MD, FCAP, ??CLIA Certificate: [id number] ?Surgical Pathology DIAGNOSIS Lymph node, station 7, biopsy - - Reactive follicular hyperplasia (see Discussion) Electronically signed by: ?Denilson Titus DO Verified: ??08/02/2023 11:48 ??Pathologist Performed at: ??-[facility] Dept. of Pathology, [place] [address] Major Gifts Manager: Filipe Hoang MD, FCAP, ??CLIA Certificate: [id number] DISCUSSION Sections show follicles with well-formed germinal centers and intact mantle cuffs. Immunostains show an intact ?? immunoarchitecture ??(see Additional Studies). Concurrent flow cytometry ([id number]) performed on the surgical specimen from this [...] were developed by the clinical laboratory at [facility]. Antibody specificities have been verified on tissues [...] labeled A1. ??pps 08/23/2023 9:45 AM EST [facility] LYMPH NODE SPECIMEN / Unknown 07/29/2023 1:10 PM EDT 07/29/2023 1:10 PM EDT Toro Gonzales MD PATHOLOGY/CYTOLOGY O RDERABLES [facility] [address] [place] [address] * Flow Cytometry Report (07/29/2023 1:10 PM EDT) Flow Cytometry Report [id number] ? Location: 4T; EA08; A The signing pathologist has (i) examined the relevant preparation(s) for the specimen(s) and (ii) rendered or confirmed the diagnosis(es). . ?Flow Cytometry DIAGNOSIS BRONCHIAL ALVEOLAR LAVAGE FLUID - FLOW CYTOMETRY: - The T-cell CD4:CD8 ratio is ~1.37:1, limited study (see Discussion). Electronically signed by: ?Denilson Titus DO Verified: ??07/31/2023 9:26 ?? Pathologist Performed at: ??-[facility] Dept. of Pathology, [place] [address] Major Gifts Manager: Filipe Hoang MD, [facility], ??CLIA Certificate: [id number] DISCUSSION Cell viability in the KJ11-zlvxqs low-SSC histogram region was 67% as assessed [...] by the Clinical Flow Cytometry Laboratory at [facility]. It has not been cleared or [...] high complexity clinical laboratory testing. SPECIMEN PROCESSING [id number] Cells for immunophenotypic analysis were derived from [...] sarcoidosis and carcinoma. BAL for CD4:CD8 ratio. [facility] 07/29/2023 1:10 PM EDT Toro Gonzales MD PATHOLOGY/CYTOLOGY O RDERABLES [facility] [place] [address] * Immunophenotyping Flow Cytometry (07/29/2023 1:10 PM EDT) Immunophenotyping Flow See Comment [facility] Comment: When completed by the Pathologist, the Flow Cytometry Report ([id number]) will display under the Pathology Results section within eDH. Other 07/29/2023 1:10 PM EDT 07/29/2023 1:23 PM EDT Narrative Resulting Agency Comment Spec In Lab Toro Gonzales MD HEMATOLOGY ORDERABLE S Performing Organization Address [facility] Co de Phone Number [facility] [place] [address] * Cell Count, Bronchoalveolar Lavage (07/29/2023 1:10 PM EDT) Color BAL Colorless [facility] Appearance, BAL Slightly Hazy [facility] NUC, BAL Count 46 mcL [facility] Seg BAL 8 % [facility] Lymph, BAL 22 % [facility] Macrophage BAL 58 % [facility] Eos, BAL 12 % [facility] Total Cells, BAL 200 Cells [facility] Bronchial Alveolar Lavage 07/29/2023 1:10 PM EDT 07/29/2023 1:23 PM EDT Narrative Resulting Agency Comment Spec In Lab Toro Gonzales MD BODY FLUIDS AND STOO LS ORDERABLES Performing Organization Address City/[facility] Co de Phone Number [facility] [place] [address] * Calcofluor White Stain (07/29/2023 1:07 PM EDT) Calcofluor Stain Calcofluor White Preparation: Negative [facility] Bronchial Alveolar Lavage 07/29/2023 1:07 PM EDT 07/29/2023 1:31 PM EDT Narrative Resulting Agency Comment Spec In Lab Toro Gonzales MD MICROBIOLOGY - GENER AL ORDERABLES Performing Organization Address City/[facility]/ZIP Co de Phone Number [facility] [place] [address] * Fungus culture (07/29/2023 1:07 PM EDT) Fungus Culture No Fungus isolated [facility] Bronchial Alveolar Lavage 07/29/2023 1:07 PM EDT 07/29/2023 1:31 PM EDT Narrative Resulting Agency Comment Spec In Lab Toro Gonzales MD MICROBIOLOGY - GENER AL ORDERABLES Performing Organization Address [facility] Co de Phone Number [facility] [place] [address] * Lower Respiratory Culture Bronchial Alveolar Lavage (07/29/2023 1:07 PM EDT) Lower Respiratory Culture No growth [facility] Gram Stain Few Neutrophils seen No microorganisms seen. [facility] Bronchial Alveolar Lavage 07/29/2023 1:07 PM EDT 07/29/2023 1:31 PM EDT Narrative Resulting Agency Comment Spec In Lab Toro Gonzales MD MICROBIOLOGY - GENER AL ORDERABLES Performing Organization Address [facility] Co de Phone Number [facility] [place] [address] * AFB culture Bronchial Alveolar Lavage (07/29/2023 1:07 PM EDT) Acid Fast Bacilli Culture No Acid Fast Bacilli isolated If active tuberculosis is suspected, the patient should be on [employer]CAUTIONS. Call Infection Prevention for assistance if needed. [facility] Acid Fast Stain No Acid Fast Bacilli seen [facility] Bronchial Alveolar Lavage 07/29/2023 1:07 PM EDT 07/29/2023 1:31 PM EDT Narrative Resulting Agency Comment Spec In Lab Toro Gonzales MD MICROBIOLOGY - GENER AL ORDERABLES Performing Organization Address City/[facility] Co de Phone Number [facility] [place] [address] * Cytopathology Non-Gynecological (07/29/2023 1:06 PM EDT) AP Specimen 07/29/2023 1:06 PM EDT 07/29/2023 1:06 PM EDT Narrative [facility] - 07/29/2023 1:06 PM EDT Specimen requisition ordered. ??Separate Pathology report to follow Toro Gonzales MD PATHOLOGY/CYTOLOGY O RDMARY KAY [facility] [place] [address] * POCT Glucose (07/29/2023 12:25 PM EDT) Glucose, POC 140 65 - 199 mg/dL [facility] Comment: Supplemental ranges: <140 mg/dL before meals <180 mg/dL all other times of the day Blood 07/29/2023 12:2 5 PM EDT 07/29/2023 12:25 PM EDT Toro Gonzales MD POINT OF CARE TEST O LEIF Performing Organization Address City/[facility] Co de Phone Number [facility] [place] [address] documented in this encounter Visit Diagnoses Not [...] CRNA) documented in this encounter Care Teams Property Maintenance Technician Relationship Specialty Start Date End Date Veronica Campbell APRN [address] [place] [address] PCP - General Family Medicine 01/18/22 documented as of this encounter
--- OUTSIDE RECORDS SUMMARY | 2024-10-18 15:33 | XMS_ITS | Encounter Summary ---
Author Organization [facility] Address [facility] [place] [address] Care Team Providers Care Card Sorter Name Role Phone Adrian Veronica CHRISTEL Primary Care Provider [phone] Reason for Visit * Auth/Cert (Routine) Specialty [...] (WRVU 3.18) MODIFIER,STEALTH 2,KINEVO Bernard Linares MD [facility] [place] [address] [facility] Referral ID Status Reason Start Date Expiration Date Visits Re quested Visits Authorized [id number] 1 1 Encounter Details Date Type Department Care Team (Late st Contact Info) Description 11/26/2023 10:11 AM EST Anesthesia [place] [address] Luzma Bolden MD [facility] [place] [address] Fabiola Petty [place] [address] Anesthesia Record Procedure Summary Procedure Name Responsible [...] by Michelle Moeller RN PIV 11/26/23; 0922; pbzw-yqu-woxpsi catheter system; 20 gauge, 1 in length; [...] Maldonado CRNA 11/26/23 1242 by Nick Maldonado, CHILD CARE LEADER PIV 11/26/23; 1025; cjht-qsf-ixjnsk catheter system; 18 gauge; cephalic vein (lateral side of arm), right; Anatomical Landmarks; SHERRILL Hobbs; other (see comments) (placed s/p induction); 11/26/23; 1454 11/26/23 1025 by Nick Maldonado CHILD CARE LEADER 11/26/23 1454 by Maricruz Biggs RN documented [...] Procedure Summary Date: 11/26/23 Room / Location: [facility] OR [facility] MAIN OR Anesthesia Start: 101 Anesthesia [...] All Anesthesia Providers: Anesthesiologist: Luzma Bolden MD CHILD CARE LEADER: Nick Maldonado CRNA Student Nurse Linotyper: Otilia Reddy Vitals Value Taken Time BP 153/69 11/26/23 1440 Temp 36.6 ??C (97.9 ??F) 11/26/23 1440 Pulse 56 11/26/23 1440 Resp 12 11/26/23 1440 SpO2 96 % 11/26/23 1440 Pain Level 3 11/26/23 1440 Patient Location: PACU/[facility] Level of Consciousness: Conscious but Sleepy [...] PCI performed by Pablito Hunt MD at [facility] CATH LABS ? ? [facility] GUID[facility] SAMPL 3/> NODE STATION/STRUX N/A 07/29/2023 BRONCH, W ENDOBRONCHIAL ULTRASOUND (EBUS) GUIDED SAMPLING, 3+ NODES (WRVU 4.96) performed by Toro Gonzales MD at [facility] ENDOSCOPY ??? PRO COLONOSCOPY, DIAGNOSTIC N/A 09/02/2015 COLONOSCOPY, DIAGNOSTIC performed by Roula Saez MD at [facility] ENDOSCOPY Social History Tobacco Use ??? [...] REMOVE Please contact the Blood Bank at [phone] for questions. ??? Sulfamethoxazole Other (See Comments) [...] risks discussed with patient. Plan discussed with CHILD CARE LEADER. Anesthesia Screening Note: Date and Time of [...] abnormality, improved in Lateral leads TTE 04/05/23 [facility] EF 64%. Normal LV diastolic function and [...] with attending anesthesiologist Dr. Hidalgo. Fabiola Petty, ORTHOPEDICS NURSE 10/29/23 documented in this encounter Plan of Treatment Upcoming Encounters Date Type Department Care Team (Late st Contact Info) Description 11/09/2024 10:40 AM EST Office Visit Cardiology at [address] [address] Pablito Hunt MD [facility] [place] [address] 03/20/2025 3:00 PM EDT Office Visit Dermatology at [facility] [address] [place] [address] Jeremiah Preston MD [facility] DR YARA [place] [address] documented as of this encounter Visit Diagnoses [...] mg documented in this encounter Care Teams Card Sorter Relationship Specialty Start Date End Date Veronica Campbell APRN [address] [place] [address] PCP - General Family Medicine 01/18/22 documented as of this encounter
--- OUTSIDE RECORDS SUMMARY | 2024-10-18 15:33 | XMS_ITS | Encounter Summary ---
Author Organization [facility] [place] [address] Care Team Providers Care [employer] Name Role Phone Veronica Campbell CHRISTEL Primary Care Provider [phone] Reason for Referral * Diagnostic Test (Routine) - Closed Specialty Diagnoses / Procedures Referred By Jason garcia Referred To Contact Radiology Diagnoses Mediastinal adenopathy Multiple lung nodules on CT Procedures CT Chest wo Contrast (Generic) Paulie Velazquez MD [facility] [place] [address] [facility] [place] [address] Referral ID Status Reason Start Date Expiration Date V isits Requested Visits Authorized [id number] Closed Specialty Service Requested 08/02/2023 01/30/2025 1 1 Encounter Details Date Type Department Care Team (Late st Contact Info) Description 08/02/2023 Telephone [place] [address] Paulie Velazquez MD [facility] [place] [address] Social History Tobacco Use Types [...] AM EST Office Visit Cardiology at [address] [address] Pablito Hunt MD [facility] [place] [address] 03/20/2025 3:00 PM EDT Office Visit Dermatology at [facility] [address] [place] [address] Jeremiah Preston MD [facility] DR YARA [place] [address] documented as of this encounter Results * CT Chest wo Contrast (Generic) (01/26/2024 2:35 PM EDT) WORKSTATION ID [id number] RAD Anatomical Region Laterality Modality Chest Computed [...] who have questions please contact the health weekend caregiver that requested your imaging first. ? Narrative [...] patients who have questions please contactthe health weekend caregiver that requested your imaging first. Paulie Velazquez MD IMG CT ORDERABL ES documented in this encounter Visit Diagnoses Diagnosis Mediastinal adenopathy Enlargement of lymph nodes Multiple lung nodules on CT Mediastinal adenopathy Enlargement of lymph nodes Multiple lung nodules on CT documented in this encounter Care Teams [employer] Relationship Specialty Start Date End Date Veronica Campbell APRN [address] [place] [address] PCP - General Family Medicine 01/18/22 documented as of this encounter
--- OUTSIDE RECORDS SUMMARY | 2024-10-18 15:33 | XMS_ITS | Encounter Summary ---
Author Organization [facility] [place] [address] Care Team Providers Care Pattern Finisher Name Role Phone Veronica Campbell APRN Primary Care Provider [phone] Encounter Details Date Type Department Care Team (Late st Contact Info) Description 06/08/2023 Ancillary Procedure Radiology Library at [facility] [place] [address] Veronica Campbell APRN [address] [place], [place] [address] Social History Tobacco Use Types Packs/Day Years [...] AM EST Office Visit Cardiology at [address] [place] [address] Pablito Hunt MD [facility] [address] 03/20/2025 3:00 PM EDT Office Visit Dermatology at [facility] [address] [place] [address] Jeremiah Preston MD [facility] DR [place] [address] documented as of this encounter Procedures Procedure Name Priority Date/Time Associated Diagnosis Comments FILM LIBRARY STORAGE ONLY CT CHEST ABDOMEN PELVIS Routine 06/08/2023 12:00 AM EDT documented in this encounter Results * Film Library- Storage Only CT Chest Abdomen Pelvis (06/08/2023 12:00 AM EDT) Narrative [facility] - 07/20/2023 3:48 PM EDT This exam is auto-finalizing. It's purpose is for storage only. Veronica Campbell APRN IMG FILM LIBRARY ORD ERABLES [place], [place] documented in this encounter Visit Diagnoses Not on filedocumented in this encounter Care Teams Pattern Finisher Relationship Specialty Start Date End Date Veronica Campbell APRN [address] [place] [address] PCP - General Family Medicine 01/18/22 documented as of this encounter
--- OUTSIDE RECORDS SUMMARY | 2024-10-18 15:33 | XMS_ITS | Encounter Summary ---
Author Organization [facility] [place] [address] Care Team Providers Care Winder Tender Name Role Phone Veronica Campbell CHRISTEL Primary Care Provider [phone] Encounter Details Date Type Department Care Team [...] 10:40 AM EST Office Visit Cardiology at [address] [address] Pablito Hunt MD [facility] [place] [address] 03/20/2025 3:00 PM EDT Office Visit Dermatology at [facility] [address] [place] [phone] Jeremiah Preston MD [facility] DR [place] [place] [address] documented as of this encounter Visit Diagnoses Not on filedocumented in this encounter Care Teams Winder Tender Relationship Specialty Start Date End Date Veronica Campbell APRN [address] [place] [address] PCP - General Family Medicine 01/18/22 documented as of this encounter
--- OUTSIDE RECORDS SUMMARY | 2024-10-18 15:33 | XMS_ITS | Encounter Summary ---
[place] [address] Care Team Providers Care Cook Helper [employer] Name Role Phone Adrian Veronica CHRISTEL Primary Care Provider [phone] Encounter Details Date Type Department Care Team (Late st Contact Info) Description 10/29/2023 Telephone [place] [phone] Otilia Haskins Social History Tobacco Use Types [...] 10:40 AM EST Office Visit Cardiology at [address] [address] Pablito Hunt MD [facility] [place] [address] 03/20/2025 3:00 PM EDT Office Visit Dermatology at [facility] [address] [place] [address] Jeremiah Preston MD [facility] [place] [address] documented as of this encounter Visit Diagnoses Not on filedocumented in this encounter Care Teams Cook Helper [employer] Relationship Specialty Start Date End Date Veronica Campbell APRN [address] [place] [address] PCP - General Family Medicine 01/18/22 documented as of this encounter
--- OUTSIDE RECORDS SUMMARY | 2024-10-18 15:33 | XMS_ITS | Encounter Summary ---
Author Organization [facility] [place] [address] Care Team Providers Care Counter Intelligence Agent Name Role Phone Veronica Campbell CHRISTEL Primary Care Provider [phone] Encounter Details Date Type Department Care Team (Late st Contact Info) Description 07/29/2023 1:00 PM EDT - 07/29/2023 2:10 PM EDT [place] [address] BackerToro MD [facility] [place] [address] BRONCH, W ENDOBRONCHIAL ULTRASOUND (EBUS) GUIDED SAMPLING, [...] your doctor if you can take an drsy-hyg-hqoqdgh medicine. If you think your pain medicine [...] occurs, please contact your Doctor. Please call [phone] before 8pm Mon-Fri with problems, questions or concerns. If you call after 8pm or on weekends, call the Hospital at [phone] and ask to speak to the Practice Physician precision thread grinder operator and the lithographic press operator will contact that person for you. When should you call for help? Call [phone] anytime you think you may need emergency [...] any problems. Where can you learn more? [facility] View your After Visit Summary and more online at [email or web address] If you would like to provide feedback about your hospital experience, please call the Office of Patient and Family Relations at . If you have received this After Visit Summary in error, please immediately return it in person to the department, or notify the [facility] Privacy Office by calling toll free at between the hours of 8AM and 5PM to arrange for our retrieval of the documents at no cost to you. Content Version: 12.2 ?? [phone] [employer]. Care instructions adapted under license by [facility]. If you have questions about a medical condition or this instruction, always ask your healthcare professional. [employer] disclaims any warranty or liability for your [...] by mouth daily. 07/16/2023 FreeStyle Elma 2 Schriever MiscIndications:diabet es mellitus 1 each by Other route daily. Indications: diabetes 1 each 08/03/2022 FreeStyle Elma 2 Sensor KitIndications:diabete s mellitus 1 each by Other route daily. Indications: diabetes 6 kit 3 08/03/2022 icosapent ethyL (Vascepa) 1 gram CapsuleIndications:Cor onary artery disease, unspecified vessel or lesion type, unspecified whether angina present, unspecified whether [place] or transplanted heart Take 2 capsules by [...] times daily (with meals). 12/12/2010 Dexcom G6 [employer] Misc 1 each by [facility]Non-Drug; Combo Route) route continuous. Use as directed for continuous glucose monitoring. E11.9 1 each 08/06/2022 11/23/2023 Dexcom G6 Sensor Device 1 each by [facility]Non-Drug; Combo Route) route continuous. Use as directed [...] Section of Pulmonary & Critical Care Pager: [phone] documented in this encounter Miscellaneous Notes * [...] and moderate thin/clear secretions bilaterally. Bronchoalveolar Lavage (20360): The bronchoscope was wedged into the superior segment of the left lower lobe (LB6). A total of 100 mL of saline was instilled and a total of 25 mL of cellular fluid was aspirated. This was sent for analysis. EBUS-TBNA (3 sites): The Olympus EBUS ([id number]) scope was inserted, lymph node inspection undertaken [...] Core Biopsies (1 sites): The Olympus EBUS ([id number]) scope was inserted and inspection undertaken. The [...] time to complete (modifier 22). Therapeutic Suctioning (55485): A significant portion of operative time was [...] Section of Pulmonary & Critical Care Pager: [phone] documented in this encounter Plan of Treatment Upcoming Encounters Date Type Department Care Team (Late st Contact Info) Description 11/09/2024 10:40 AM EST Office Visit Cardiology at [address] [address] Pablito Hunt MD [facility] [place] [address] 03/20/2025 3:00 PM EDT Office Visit Dermatology at [facility] [address] [place] [address] Jeremiah Preston MD [facility] DR [place] [address] documented as of this encounter Procedures Procedure Name Priority Date/Time Associated Diagnosis Comments B-CELL CLONALITY STUDIES Routine 023 5:11 PM EST POCT GLUCOSE Routine 07/29/2023 2:16 PM EDT NON-CHIEF LENDING OFFICER FINAL REPORT Routine 07/29/2023 1:37 PM EDT NON-CHIEF LENDING OFFICER FINAL REPORT Routine 07/29/2023 1:37 PM EDT NON-CHIEF LENDING OFFICER FINAL REPORT Routine 07/29/2023 1:37 PM EDT [...] CYTOMETRY (BLOOD) Routine 07/29/2023 1:10 PM EDT NON-CHIEF LENDING OFFICER FINAL REPORT Routine 07/29/2023 1:10 PM EDT [...] CYTOPATHOLOGY NON-GYNECOLOGICAL Routine 07/29/2023 1:06 PM EDT [facility] Ebus Guided Sampl 3/> Node Station/Strux (17016) 07/29/2023 12:51 PM EDT Lymphadenopathy POCT GLUCOSE Routine 07/29/2023 12:25 PM EDT documented in this encounter Results * B-cell clonality studies (08/02/2023 5:11 PM EST) B-cell Result B-cell polyclonal [facility] B-cell Interp B-cell Receptor Clonality Assay INDICATION FOR STUDY: ??Concern for B-cell neoplasm ANALYSIS: ??Sequence analysis of IGH FR1/FR2/FR3 regions for rearrangements SPECIMEN: ??[id number], A1 RESULTS: ??NEGATIVE sequencing results for clonality in IGH. INTERPRETATION: No clonal IGH sequences were identified in this study. METHODS: Genomic DNA was extracted from whole blood or bone marrow, and analyzed with the Insightpool IGH (FR1, FR2, & FR3) Assays. DNA [...] Genomics and Advanced Technology (CGAT) Laboratory at [facility]. [facility] Tissue 08/02/2023 5:11 PM EST 08/04/2023 1:59 PM EST Narrative Resulting Agency Comment Spec In Lab Toro Gonzales MD MOLECULAR ORDERABLES Performing Organization Address City/[facility]/ZIP Co de Phone Number [facility] [place] [address] * POCT Glucose (07/29/2023 2:16 PM EDT) Glucose, POC 126 65 - 199 mg/dL [facility] Comment: Supplemental ranges: <140 mg/dL before meals <180 mg/dL all other times of the day Blood 07/29/2023 2:16 PM EDT 07/29/2023 2:16 PM EDT Toro Gonzales MD POINT OF CARE TEST O RDERABLES Performing Organization Address [facility] Co de Phone Number [facility] [place] [address] * Non-Primary Special Educator Final Report (07/29/2023 1:37 PM EDT) Diagnosis Discussion [id number] ? Location: 4T; EA08; A The signing pathologist has (i) examined the relevant preparation(s) for the specimen(s) and (ii) rendered or confirmed the diagnosis(es). . ? Non-Primary Special Educator Final DIAGNOSIS See Discussion Electronically signed by: ?Denilson Titus DO Verified: ??08/04/2023 19:36 ??Pathologist Performed at: ??-[facility] Dept. of Pathology, [place] [address] Precision Agriculture Technician: Filipe Hoang MD, AP, ??CLIA Certificate: [id number] DISCUSSION Lymph node: station 4R (EBUS-guided FNA) [...] were developed by the clinical laboratory at [facility]. Antibody specificities have been verified on tissues [...] Preparation: Cell Block 1. 08/04/2023 7:36 PM [facility] LYMPH NODE SPECIMEN / Unknown 07/29/2023 1:37 PM EDT 07/29/2023 1:37 PM EDT Toro Gonzales MD PATHOLOGY/CYTOLOGY O RDERABLES [facility] [place] [address] [facility] [place] [address] * Non-Primary Special Educator Final Report (07/29/2023 1:37 PM EDT) Diagnosis Discussion [id number] ? Location: 4T; EA08; A The signing pathologist has (i) examined the relevant preparation(s) for the specimen(s) and (ii) rendered or confirmed the diagnosis(es). . ? Non-Primary Special Educator Final DIAGNOSIS See Discussion Electronically signed by: ?Tacho FREEMAN Denilson Chaudhari Verified: ??08/02/2023 11:35 ??Pathologist Performed at: ??-[facility] Dept. of Pathology, [place] [address] Precision Agriculture Technician: Filipe Hoang MD, AP, ??CLIA Certificate: [id number] DISCUSSION Lymph node: station 11R (EBUS-guided FNA) - - Lymphoid tissue without overt evidence of lymphoma (see Comment). Comment: Fragments of lymphoid tissue and cartilage present; more extensive testing done of more adequate samples (see [id number] and [id number]). (Cell block was examined.) CLINICAL INFORMATION Specimen [...] Cell Block 1. 08/02/2023 11:35 AM EST [facility] LYMPH NODE SPECIMEN / Unknown 07/29/2023 1:37 PM EDT 07/29/2023 1:37 PM EDT Toro Gonzales MD PATHOLOGY/CYTOLOGY O RDERABLES [facility] [place] [id number] [facility] [place] [address] * Non-Primary Special Educator Final Report (07/29/2023 1:37 PM EDT) Diagnosis Discussion [id number] ? Location: 4T; EA08; A The signing pathologist has (i) examined the relevant preparation(s) for the specimen(s) and (ii) rendered or confirmed the diagnosis(es). . ? Non-Primary Special Educator Final DIAGNOSIS See Discussion Electronically signed by: ?Denilson Titus DO Verified: ??08/02/2023 11:32 ??Pathologist Performed at: ??-[facility] Dept. of Pathology, [place] [address] Precision Agriculture Technician: Filipe Hoang MD, FCAP, ??CLIA Certificate: [id number] DISCUSSION Lymph node: station 7 (EBUS-guided FNA) - - Reactive follicular hyperplasia (see Comment) Comment: Sections show follicles with well-formed germinal centers and intact mantle cuffs. Immunostains show an intact immunoarchitechture (see Immunohistochemistry Studies). Concurrent flow cytometry ([id number]) performed on the surgical specimen from this [...] were developed by the clinical laboratory at [facility]. Antibody specificities have been verified on tissues [...] Cell Block 1. 08/02/2023 11:32 AM EST [facility] LYMPH NODE SPECIMEN / Unknown 07/29/2023 1:37 PM EDT 07/29/2023 1:37 PM EDT Toro Gonzales MD PATHOLOGY/CYTOLOGY O LEIF [facility] [address] [place] [address] * Cytopathology Non-Gynecological (07/29/2023 1:37 PM EDT) AP Specimen 07/29/2023 1:37 PM EDT 07/29/2023 1:37 PM EDT Narrative [facility] - 07/29/2023 1:37 PM EDT Specimen requisition ordered. ??Separate Pathology report to follow Toro Gonzales MD PATHOLOGY/CYTOLOGY O LEIF [facility] [place] [address] * Cytopathology Non-Gynecological (07/29/2023 1:37 PM EDT) AP Specimen 07/29/2023 1:37 PM EDT 07/29/2023 1:37 PM EDT Narrative [facility] - 07/29/2023 1:37 PM EDT Specimen requisition ordered. ??Separate Pathology report to follow Toro Gonzales MD PATHOLOGY/CYTOLOGY O LEIF Performing Organization Address [facility] Co de Phone Number [facility] [place] [address] * Cytopathology Non-Gynecological (07/29/2023 1:37 PM EDT) AP Specimen 07/29/2023 1:37 PM EDT 07/29/2023 1:37 PM EDT Narrative [facility] - 07/29/2023 1:37 PM EDT Specimen requisition ordered. ??Separate Pathology report to follow Toro Gonzales MD PATHOLOGY/CYTOLOGY O LEIF Performing Organization Address [facility] Co de Phone Number [facility] [place] [address] * Specimen to Pathology (07/29/2023 1:36 PM EDT) AP Specimen 07/29/2023 1:36 PM EDT 07/29/2023 1:36 PM EDT Narrative [facility] - 07/29/2023 1:36 PM EDT Specimen requisition ordered. ??Separate Pathology report to follow Toro Gonzales MD PATHOLOGY/CYTOLOGY O LEIF Performing Organization Address [facility] de Phone Number [facility] [place] [address] * Flow Cytometry Report (07/29/2023 1:35 PM EDT) Pathologist [facility] Flow Cytometry Report [id number] ? Location: 4T; [facility]; A The signing pathologist has (i) examined the relevant preparation(s) for the specimen(s) and (ii) rendered or confirmed the diagnosis(es). . ?Flow Cytometry DIAGNOSIS LYMPH NODE, STATION 7, FLOW CYTOMETRY: - No monotypic B-cell population or immunophenotypically aberrant T-cell population detected. Comment: Flow cytometry does not detect certain hematolymphoid malignancies and non- hematolymphoid malignancies. Correlation with pending morphology (case [id number]) from the biopsy is recommended. Electronically signed by: ?Denilson Titus DO Verified: ??08/02/2023 11:28 ??Pathologist Performed at: ??-[facility] Dept. of Pathology, [place] [address] Precision Agriculture Technician: Filipe Hoang MD, FCAP, ??CLIA Certificate: [id number] DISCUSSION Cell viability was ~54% as assessed by 7-AAD exclusion. The T-lymphocytes, B- lymphocytes and CD56+ NK cells comprise approx 59%, 39%, 3% of the gated population, respectively. The CD19 positive B-cells have a polytypic expression of surface immunoglobulin light chain (Furman:Lambda ratio at 1.6). The T-cells are an admixture of CD4+ and CD8+ T lymphocytes (ratio of 5.6). No loss or atypical intensity distributions are seen for any unger T antigen (CD2, 3, 4+8, 5, 7). There is no increase in EH04-twzowkjy/CD3-neg NK cells. Flow analysis is an ancillary study. A definite diagnosis requires correlation with the morphologic features of this process and if necessary, correlation with other ancillary studies like immunohistochemistry, enzyme cytochemistry and/or cyto/ molecular genetics. This test was developed and its performance characteristics determined by the Clinical Flow Cytometry Laboratory at [facility]. It has not been cleared or approved [...] high complexity clinical laboratory testing. SPECIMEN PROCESSING [id number] Cells for immunophenotypic analysis were derived from [...] male with mediastinal lymphadenopathy, splenomegaly and fatigue. [facility] 07/29/2023 1:35 PM EDT Toro Gonzales MD PATHOLOGY/CYTOLOGY O RDERABLES Performing Organization Address [facility] de Phone Number [facility] [place] [address] * Immunophenotyping Flow Cytometry (07/29/2023 1:35 PM EDT) Immunophenotyping Flow See Comment [facility] Comment: When completed by the Pathologist, the Flow Cytometry Report ([id number]) will display under the Pathology Results section within eDH. Other 07/29/2023 1:35 PM EDT 07/29/2023 1:50 PM EDT Narrative Resulting Agency Comment Spec In Lab Toro Gonzales MD HEMATOLOGY ORDERABLE S Performing Organization Address [facility] [place] [address] * Non-Primary Special Educator Final Report (07/29/2023 1:10 PM EDT) Diagnosis Discussion [id number] ? Location: 4T; EA08; A The signing pathologist has (i) examined the relevant preparation(s) for the specimen(s) and (ii) rendered or confirmed the diagnosis(es). . ? Non-Primary Special Educator Final DIAGNOSIS See Discussion Electronically signed by: ?Khoi Hutchison MD Verified: ??08/02/2023 13:27 ??Pathologist Performed at: ??-[facility] Dept. of Pathology, [place] [address] Precision Agriculture Technician: Filipe Hoang MD, AP, ??CLIA Certificate: [id number] DISCUSSION Bronchial alveolar lavage: Alveolar macrophages, respiratory epithelial cells, reactive pneumocytes, and mixed ??inflammatory cells are present. No overtly cytologically malignant cells seen. The material might not be fully shared services representative of the target lesion. Clinical and [...] Cell Block 1. 08/02/2023 1:27 PM EST [facility] BRONCHIAL STRUCTURE / Unknown 07/29/2023 1:10 PM EDT 07/29/2023 1:10 PM EDT Toro Gonzales MD PATHOLOGY/CYTOLOGY O RDERABLES [facility] [address] [place] [address] * Surgical Pathology Report (07/29/2023 1:10 PM EDT) Final Diagnosis [id number] ? Location: 4T; EA08; A The signing [...] Verified: ??08/23/2023 9:45 ?? Pathologist Performed at: ??-[facility] Dept. of Pathology, [place] [address] Precision Agriculture Technician: Filipe Hoang MD, FCAP, ??CLIA Certificate: [id number] ?Surgical Pathology DIAGNOSIS Lymph node, station 7, biopsy - - Reactive follicular hyperplasia (see Discussion) Electronically signed by: ?Denilson Titus DO Verified: ??08/02/2023 11:48 ??Pathologist Performed at: ??-[facility] Dept. of Pathology, [place] [address] Precision Agriculture Technician: Filipe Hoang MD, FCAP, ??CLIA Certificate: [id number] DISCUSSION Sections show follicles with well-formed germinal centers and intact mantle cuffs. Immunostains show an intact ?? immunoarchitecture ??(see Additional Studies). Concurrent flow cytometry ([id number]) performed on the surgical specimen from this [...] were developed by the clinical laboratory at [facility]. Antibody specificities have been verified on tissues [...] labeled A1. ??pps 08/23/2023 9:45 AM EST [facility] LYMPH NODE SPECIMEN / Unknown 07/29/2023 1:10 PM EDT 07/29/2023 1:10 PM EDT Toro Gonzales MD PATHOLOGY/CYTOLOGY O RDERABLES [facility] [place] [id number] [facility] [place] [address] * Flow Cytometry Report (07/29/2023 1:10 PM EDT) Flow Cytometry Report [id number] ? Location: 4T; EA08; A The signing pathologist has (i) examined the relevant preparation(s) for the specimen(s) and (ii) rendered or confirmed the diagnosis(es). . ?Flow Cytometry DIAGNOSIS BRONCHIAL ALVEOLAR LAVAGE FLUID - FLOW CYTOMETRY: - The T-cell CD4:CD8 ratio is ~1.37:1, limited study (see Discussion). Electronically signed by: ?Denilson Titus DO Verified: ??07/31/2023 9:26 ?? Pathologist Performed at: ??-[facility] Dept. of Pathology, [place] [address] Precision Agriculture Technician: Filipe Hoang MD, FCAP, ??CLIA Certificate: [id number] DISCUSSION Cell viability in the PF29-aucvqw low-SSC histogram region was 67% as assessed [...] by the Clinical Flow Cytometry Laboratory at [facility]. It has not been cleared or approved [...] high complexity clinical laboratory testing. SPECIMEN PROCESSING [id number] Cells for immunophenotypic analysis were derived from [...] sarcoidosis and carcinoma. BAL for CD4:CD8 ratio. [facility] 07/29/2023 1:10 PM EDT Toro Gonzales MD PATHOLOGY/CYTOLOGY O RDERASANDRA [facility] [place] [address] * Immunophenotyping Flow Cytometry (07/29/2023 1:10 PM EDT) Immunophenotyping Flow See Comment [facility] Comment: When completed by the Pathologist, the Flow Cytometry Report ([id number]) will display under the Pathology Results section within eD. Other 07/29/2023 1:10 PM EDT 07/29/2023 1:23 PM EDT Narrative Resulting Agency Comment Spec In Lab Toro Gonzales MD HEMATOLOGY ORDERABLE S Performing Organization Address City/[facility]/[place] [address] * Cell Count, Bronchoalveolar Lavage (07/29/2023 1:10 PM EDT) Color BAL Colorless [facility] Appearance, BAL Slightly Hazy [facility] NUC, BAL Count 46 mcL [facility] Seg BAL 8 % [facility] Lymph, BAL 22 % [facility] Macrophage BAL 58 % [facility] Eos, BAL 12 % [facility] Total Cells, BAL 200 Cells [facility] Bronchial Alveolar Lavage 07/29/2023 1:10 PM EDT 07/29/2023 1:23 PM EDT Narrative Resulting Agency Comment Spec In Lab Toro Gonzales MD BODY FLUIDS AND STOO LS ORDERABLES Performing Organization Address City/[facility]/ZIP Co de Phone Number [facility] [place] [address] * Calcofluor White Stain (07/29/2023 1:07 PM EDT) Calcofluor Stain Calcofluor White Preparation: Negative [facility] Bronchial Alveolar Lavage 07/29/2023 1:07 PM EDT 07/29/2023 1:31 PM EDT Narrative Resulting Agency Comment Spec In Lab Toro Gonzales MD MICROBIOLOGY - GENER AL ORDERABLES Performing Organization Address City/[facility]/ZIP Co de Phone Number [facility] [place] [address] * Fungus culture (07/29/2023 1:07 PM EDT) Fungus Culture No Fungus isolated [facility] Bronchial Alveolar Lavage 07/29/2023 1:07 PM EDT 07/29/2023 1:31 PM EDT Narrative Resulting Agency Comment Spec In Lab Toro Gonzales MD MICROBIOLOGY - GENER AL ORDERABLES Performing Organization Address [facility] Co de Phone Number [facility] [place] [address] * Lower Respiratory Culture Bronchial Alveolar Lavage (07/29/2023 1:07 PM EDT) Lower Respiratory Culture No growth [facility] Gram Stain Few Neutrophils seen No microorganisms seen. [facility] Bronchial Alveolar Lavage 07/29/2023 1:07 PM EDT 07/29/2023 1:31 PM EDT Narrative Resulting Agency Comment Spec In Lab Toro Gonzales MD MICROBIOLOGY - GENER AL ORDERABLES Performing Organization Address [facility] Co de Phone Number [facility] [place] [address] * AFB culture Bronchial Alveolar Lavage (07/29/2023 1:07 PM EDT) Acid Fast Bacilli Culture No Acid Fast Bacilli isolated If active tuberculosis is suspected, the patient should be on [employer]. Call Infection Prevention for assistance if needed. [facility] Acid Fast Stain No Acid Fast Bacilli seen [facility] Bronchial Alveolar Lavage 07/29/2023 1:07 PM EDT 07/29/2023 1:31 PM EDT Narrative Resulting Agency Comment Spec In Lab Toro Gonzales MD MICROBIOLOGY - GENER AL ORDERABLES Performing Organization Address City/[facility]/ZIP Co de Phone Number [facility] [place] [address] * Cytopathology Non-Gynecological (07/29/2023 1:06 PM EDT) AP Specimen 07/29/2023 1:06 PM EDT 07/29/2023 1:06 PM EDT Narrative [facility] - 07/29/2023 1:06 PM EDT Specimen requisition ordered. ??Separate Pathology report to follow Toro Gonzales MD PATHOLOGY/CYTOLOGY O LEIF [facility] [place] [address] * POCT Glucose (07/29/2023 12:25 PM EDT) Glucose, POC 140 65 - 199 mg/dL [facility] Comment: Supplemental ranges: <140 mg/dL before meals <180 mg/dL all other times of the day Blood 07/29/2023 12:2 5 PM EDT 07/29/2023 12:25 PM EDT Toro Gonzales MD POINT OF CARE TEST O LEIF Performing Organization Address [facility] Co de Phone Number [facility] [place] [address] documented in this encounter Visit Diagnoses Diagnosis [...] 1251 (New Bag - Prov ider: Scarlett M Peter, [employer] LABORER)1313 (Anesthesia Volume Adjustment - Provider: Scarlett Zuñiga CRNA) documented in this encounter Care Teams Counter Intelligence Agent Relationship Specialty Start Date End Date Veronica Campbell APRN [address] [place] [address] PCP - General Family Medicine 01/18/22 documented as of this encounter
--- OUTSIDE RECORDS SUMMARY | 2024-10-18 15:33 | XMS_ITS | Encounter Summary ---
Author Organization [facility], Later [facility] Address [facility] [place] [address] Care Team Providers Care Dehydrogenation Operator Name Role Phone Adrian Veronica CHRISTEL Primary Care Provider [phone] Reason for Visit * Auth/Cert (Routine) Specialty [...] Bernard Linares MD [facility] [place] [address] [facility] Referral ID Status Reason Start Date Expiration Date Visits Re quested Visits Authorized [id number] 1 1 Encounter Details Date Type Department Care Team (Latest Contact Info) Description 11/26/2023 8:55 AM EST - 11/26/2023 3:06 PM EST Hospital Encounter [place] [address] Bernard Linares MD [facility] [place] [address] Chronic pansinusitis; Hypertrophy of nasal turbinates; Deviated [...] 1:30 PM Grisel Calhoun PA Otol[place]ology at [facility] Arrive at: Staff Consultant Area [phone] Please dispose of unused excess opioids before your appointment or bring them with you to the appointment and we will help you dispose of them correctly. 12/23/2023 1:45 PM [facility] DX ROOM 8 XRay at [facility] Arrive at: Staff Consultant Area [phone] FOR [place] PATIENTS: Please call Radiology at [phone] if you develop an infection unrelated to this exam, or are prescribed additional antibiotics prior to your appointment. We will need to reschedule your appointment for 2 weeks after the infection has resolved or the last dose of antibiotics. Please go to Staff Consultant Area 3T ([facility] Location). 01/26/2024 2:40 PM [facility] CT 1 CT Scan at [facility] Arrive at: 3Z RADIOLOGY [phone] 01/26/2024 3:40 PM Paulie Velazquez MD Pulmonology at [facility] Arrive at: Staff Consultant Area [phone] documented in this encounter Medications at Time [...] by mouth daily. 07/16/2023 FreeStyle Elma 2 Pickerel MiscIndications:diabete s mellitus 1 each by Other route daily. Indications: diabetes 1 each 08/03/2022 FreeStyle Elma 2 Sensor KitIndications:diabetes mellitus 1 each by Other route daily. Indications: diabetes 6 kit 3 08/03/2022 icosapent ethyL (Vascepa) 1 gram CapsuleIndications:Zayra nary artery disease, unspecified vessel or lesion type, unspecified whether angina present, unspecified whether [place] or transplanted heart Take 2 capsules by [...] this time. __ Grisel Calhoun PA-[place] [address] 11/26/23 9:27 AM Associated attestation - Bernard [...] plan as stated above. Bernard Linares M.D. [employer] And Border Officer Rhinology, Endoscopic Sinus & Skull Base Surgery Division of Otolaryngology - Head and Neck Surgery [facility] documented in this encounter Miscellaneous Notes * Op Note - Bernard Linares MD - 11/26/2023 10:54 AM EST PATIENT NAME: Conrad Vera SERVICE: Otolaryngology SURGEON: Bernard Linares MD ANESTHESIA: General endotracheal. PREOPERATIVE DIAGNOSIS: Chronic sinusitis, nasal obstruction POSTOPERATIVE DIAGNOSIS: Same PROCEDURE: Bilateral endoscopic total ethmoidectomy and sphenoidotomy with tissue removal, CPT 98722-93 Bilateral endoscopic frontal sinusotomy, CPT 20928-47 Bilateral endoscopic maxillary antrostomy with tissue removal, CPT 11613-00 Septoplasty, CPT 28483 Out-fracture of inferior turbinates bilateral, CPT 36493-31 Stereotactic image guidance, CPT 98605 ESTIMATED BLOOD LOSS: 30 mL RETAINED ITEMS: [...] performed on the left side. Using the Thurman probe, the ethmoid infundibulum was gently dilated. The inferior aspect of the uncinate was removed using the back-biter. The maxillary sinus natural ostium was visualized and the Thurman probed used to dilated the natural ostium [...] sinus natural ostium was visualized and the Thurman probed used to dilated the natural ostium [...] 10:40 AM EST Office Visit Cardiology at [address] [address] Pablito Hunt MD [facility] [place] [address] 03/20/2025 3:00 PM EDT Office Visit Dermatology at [address] [address] Jeremiah Preston MD [facility] [place] [address] documented as of this encounter Procedures Procedure [...] obstruction Stereotactic Cptr Asstd Px Cranial, Extradural (50712) Yes 11/26/2023 10:13 AM EST Chronic pansinusitis Hypertrophy of nasal turbinates Deviated nasal septum Coronary artery disease due to lipid rich plaque Nasal obstruction Fracture Nasal Inferior Turbinate Therapeutic (15231) Yes 11/26/2023 10:13 AM EST Chronic pansinusitis Hypertrophy of nasal turbinates Deviated nasal septum Coronary artery disease due to lipid rich plaque Nasal obstruction Septoplasty/Submucous Resection W/Wo Cartilage Graft (79011) Yes 11/26/2023 10:13 AM EST Chronic pansinusitis Hypertrophy of nasal turbinates Deviated nasal septum Coronary artery disease due to lipid rich plaque Nasal obstruction Nasal/Sinus Endoscopy Max Antrost W/Rmvl Tiss Max Sinus (35565) Yes 11/26/2023 10:13 AM EST Chronic pansinusitis Hypertrophy of nasal turbinates Deviated nasal septum Coronary artery disease due to lipid rich plaque Nasal obstruction Nasal/Sinus Ndsc Tot W/Sphendt W/Sphen Tiss Rmvl (25964) Yes 11/26/2023 10:13 AM EST Chronic pansinusitis Hypertrophy of nasal turbinates Deviated nasal septum Coronary artery disease due to lipid rich plaque Nasal obstruction Nasal Scopy, Explor Frontal Sinus (98204) Yes 11/26/2023 10:13 AM EST Chronic pansinusitis [...] EST) Anaerobic Culture No anaerobic organisms isolated [facility] Fluid 11/26/2023 11:1 1 AM EST 11/26/2023 11:30 AM EST Comment:Right nasal cavity Narrative Resulting Agency Comment Spec In Lab Bernard Linares MD MICROBIOLOGY - GENER AL ORDERABLES [facility] [place] [address] * (ABNORMAL) Body Fluid Culture, Aerobic (11/26/2023 11:11 AM EST) Body Fluid Culture Few Staphylococcus aureus Few normal upper respiratory edilson (A) [facility] Gram Stain Cytocentrifuge Gram Stain performed Neutrophils seen Few Gram Positive Cocci Rare Gram Positive Rods (A) [facility] Organism Staphylococcus aureus(A) [facility] Fluid 11/26/2023 11:1 1 AM EST 11/26/2023 11:30 AM EST Comment:Right nasal cavity Narrative Resulting Agency Comment Spec In Lab Organism Antibiotic Method Susceptibility Staphylococcus aureus Clindamycin VITEK 2 METHOD Resistant Staphylococcus aureus Erythromycin VITEK 2 METHOD Resistant Staphylococcus aureus Gentamicin VITEK 2 METHOD Sensitive Comment:Gentamicin i s not appropriate for Miner-therapy. Staphylococcus aureus Oxacillin VITEK 2 METHOD Sensitive [...] Linares MD MICROBIOLOGY - GENER AL ORDERABLES [facility] [place] [address] * Differential, Automated (11/26/2023 10:30 AM EST) Neutrophil % 53.4 % [facility] Neutrophil Absolute 2.76 1.70 - 6.10 x10(3)/[facility] Lymph % 31.9 % [facility] Lymphocytes Abs 1.6 0.9 - 3.2 x10(3)/[facility] Monocyte % 8.3 % [facility] Monocyte Abs 0.4 0.3 - 0.9 x10(3)/[facility] Eos % 5.2 % [facility] Eosinophils Abs 0.3 0.0 - 0.4 x10(3)/[facility] Basophil % 0.8 % [facility] Baso Absolute 0.0 0.0 - 0.1 x10(3)/[facility] Immature Gran % 0.40 % [facility] Comment: Immature granulocytes(IG's)percentage and absolute count will include metamyelocytes, myelocytes, and promyelocytes. Blood smears from CBCs yielding IG's will be scanned manually for concordance. If this scan disagrees with the automated IG or if promyelocytes are noted, a manual differential will be performed. Immature Gran Absolute 0.02 0.00 - 0.04 x10(3)/mcL [facility] Blood 11/26/2023 10:3 0 AM EST 11/26/2023 11:21 AM EST Narrative Resulting Agency Comment Spec In Lab Bernard Linares MD HEMATOLOGY ORDERABLE S [facility] [place] [address] * (ABNORMAL) Hemogram (11/26/2023 10:30 AM EST) White Blood Cell 5.2 4.0 - 9.5 x10(3)/mc L [facility] Red Blood Cell 3.68(L) 4.58 - 5.54 x10(6)/mc L [facility] Hemoglobin 11.7(L) 13.7 - 16.5 g/dL [facility] Hematocrit 33.9(L) 40.5 - 48.5 % [facility] Comment: This result has been called to ALEX MIRZA by Braeden Corea on 11 26 2023 at 1142, and has been read back. Mean Cell Volume 92.1 82.9 - 93.1 fL [facility] Mean Cell Hemoglobin 31.8 27.5 - 32.1 pg [facility] Mean Cell Hemoglobin Concentration 34.5 32.0 - 35.7 g/dL [facility] Platelet 118(L) 145 - 357 x10(3)/mc L [facility] RDW Standard Deviation 47.8(H) 36.0 - 45.0 fL [facility] RDW coefficient of variation 14.3(H) 11.4 - 13.8 % [facility] Mean Platelet Volume 10.6 7.6 - 12.9 fL [facility] NRBC% auto 0.0 % [facility] NRBC Absolute 0.000 0.000 - 0.000 x10(3)/mc L [facility] Blood 11/26/2023 10:3 0 AM EST 11/26/2023 11:21 AM EST Narrative Resulting Agency Comment Spec In Lab Bernard Linares MD HEMATOLOGY ORDERABLE S [facility] [place] [address] * (ABNORMAL) POCT Glucose (11/26/2023 9:11 AM EST) Glucose, POC 209(H) 65 - 199 mg/dL [facility] Comment: Supplemental ranges: <140 mg/dL before meals <180 mg/dL all other times of the day Blood 11/26/2023 9:11 AM EST 11/26/2023 9:11 AM EST Bernard Linares MD POINT OF CARE TEST O RDERABLES Performing Organization Address [facility] Co de Phone Number [facility] [place] [address] documented in this encounter Visit Diagnoses Diagnosis [...] (New Bag - Prov ider: Nick Maldonado, VEENA) PRN Medication Order 11/24/2023 11/25/2023 11/26/2023 HYDROmorphone [...] Routine documented in this encounter Care Teams Dehydrogenation Operator Relationship Specialty Start Date End Date Veronica Campbell APRN [address] [place] [address] PCP - General Family Medicine 01/18/22 documented as of this encounter
--- OUTSIDE RECORDS SUMMARY | 2024-10-18 15:33 | XMS_ITS | Encounter Summary ---
Author Organization [facility] [place] [address] Care Team Providers Care Warehouse Receiver Name Role Phone Veronica Campbell APRN Primary Care Provider [phone] Encounter Details Date Type Department Care Team (Late st Contact Info) Description 10/07/2023 Ancillary Procedure Radiology Library at [facility] [place] [address] Veronica Campbell APRN [address] [place], [place] [address] Social History Tobacco Use Types Packs/Day Years [...] 10:40 AM EST Office Visit Cardiology at [address] [place] [address] Pablito Hunt MD [facility] [place] [address] 03/20/2025 3:00 PM EDT Office Visit Dermatology at [facility] [address] [place] [address] Jeremiah Preston MD [facility] [place] [address] documented as of this encounter Procedures Procedure Name Priority Date/Time Associated Diagnosis Comments FILM LIBRARY STORAGE ONLY CT HEAD Routine 10/07/2023 12:00 AM EST documented in this encounter Results * Film Library- Storage Only CT Head (10/07/2023 12:00 AM EST) Narrative [facility] - 10/11/2023 2:37 PM EST This exam is auto-finalizing. It's purpose is for storage only. Veronica Campbell APRN IMAlfred FILM LIBRARY ORD ERABLES [place], [place] documented in this encounter Visit Diagnoses Not on filedocumented in this encounter Care Teams Warehouse Receiver Relationship Specialty Start Date End Date Veronica Campbell APRN [address] [place] [address] PCP - General Family Medicine 01/18/22 documented as of this encounter
--- OUTSIDE RECORDS SUMMARY | 2024-10-18 15:33 | XMS_ITS | Encounter Summary ---
Author Organization [facility] [place] [address] Care Team Providers Care Appeals Officer Name Role Phone Veronica Campbell CHRISTEL [...] AM EST Office Visit Cardiology at [address] [address] Pablito Hunt MD [facility] [place] [address] 03/20/2025 3:00 PM EDT Office Visit Dermatology at [facility] [address] [place] [address] Jeremiah Preston MD [facility] [address] [place] [address] documented as of this encounter Visit Diagnoses Not on filedocumented in this encounter Care Teams Appeals Officer Relationship Specialty Start Date End Date Veronica Campbell APRN [address] [place] [address] PCP - General Family Medicine 01/18/22 documented as of this encounter
--- OUTSIDE RECORDS SUMMARY | 2024-10-18 15:33 | XMS_ITS | Encounter Summary ---
Author Organization [facility] Address [facility] [place] [address] Care Team Providers Care Hospital Technician Name Role Phone Veronica Campbell CHRISTEL Primary Care Provider [phone] Reason for Referral * Consultation (Routine) - Closed Specialty Diagnoses / Procedures Referred By Jason garcia Referred To Contact Otolaryngology Diagnoses Chronic sinusitis, unspecified location Indra Man MD [address] [place] [address] [place] [address] Bernard Linares MD [facility] [place] [address] Referral ID Status Reason Start Date Expiration Date V isits Requested Visits Authorized [id number] Closed Consult, Test & Treat 10/14/2023 10/13/2024 1 1 Encounter Details Date Type Department Care Team (Late st Contact Info) Description 10/14/2023 Transcribe Orders eD Incoming Referrals [phone] Indra Man MD [address] [place] [address] [place], [place] [id number] Chronic sinusitis, unspecified location Social History Tobacco [...] AM EST Office Visit Cardiology at [address] [address] Pablito Hunt MD [facility] [place] [address] 03/20/2025 3:00 PM EDT Office Visit Dermatology at [facility] [address] [place] [address] Jeremiah Preston MD [facility] [address] [place] [address] Scheduled Referrals Name Type Priority Associated Diagnoses Orde r Schedule Referral to ENT Outpatient Referral Routine Chronic sinusitis, unspecified location Ordered: 10/14/2023 documented as of this encounter Visit Diagnoses Diagnosis Chronic sinusitis, unspecified location documented in this encounter Care Teams Hospital Technician Relationship Specialty Start Date End Date Veronica Campbell APRN [address] [place] [address] PCP - General Family Medicine 01/18/22 documented as of this encounter
--- OUTSIDE RECORDS SUMMARY | 2024-10-18 15:33 | XMS_ITS | Encounter Summary ---
[place] [address] Care Team Providers Care Auto Engine Mechanic Name Role Phone Veronica Campbell APRN Primary Care Provider [phone] Reason for Referral * Consultation (Routine) - Authorized Specialty Diagnoses / Procedures Referred By Jason garcia Referred To Contact Orthopaedics Diagnoses Nontraumatic incomplete tear of rotator cuff, unspecified laterality R RTC Veronica Campbell APRN [address] [place] [address] [facility] [address] [place] [address] Referral ID Status Reason Start Date Expiration Date Visits Requested Visits Authorized [id number] Authorized Consult, Test & Treat PCP Updated and/or Approved 11/08/2023 11/07/2024 6 6 Encounter Details Date Type Department Care Team (Latest Contact Info) Description 11/08/2023 Transcribe Orders eDH Incoming Referrals [phone] Veronica Campbell APRN [address] [place] [address] Nontraumatic incomplete tear of rotator cuff, unspecified [...] 10:40 AM EST Office Visit Cardiology at [address] [address] Pablito Hunt MD [facility] [place] [address] 03/20/2025 3:00 PM EDT Office Visit Dermatology at [facility] [address] [place] [address] Jeremiah Preston MD [facility] [address] [place] [address] Scheduled Referrals Name Type Priority Associated Diagnoses Orde r Schedule Referral to Orthopaedics Outpatient Referral Routine Nontraumatic incomplete tear of rotator cuff, unspecified laterality Ordered: 11/08/2023 documented as of this encounter Visit Diagnoses Diagnosis Nontraumatic incomplete tear of rotator cuff, unspecified laterality documented in this encounter Care Teams Auto Engine Mechanic Relationship Specialty Start Date End Date Veronica Campbell APRN [address] [place] [address] PCP - General Family Medicine 01/18/22 documented as of this encounter
--- OUTSIDE RECORDS SUMMARY | 2024-10-18 15:33 | XMS_ITS | Encounter Summary ---
Author Organization [facility] [place] [address] Care Team Providers Care Honing Job Setter Name Role Phone Veronica Campbell CHRISTEL Primary Care Provider [phone] Encounter Details Date Type Department Care Team [...] 10:40 AM EST Office Visit Cardiology at [address] [address] Pablito Hunt MD [facility] [place] [address] 03/20/2025 3:00 PM EDT Office Visit Dermatology at [facility] [address] [place] [phone] Jeremiah Preston MD [facility] [address] [place] [address] documented as of this encounter Visit Diagnoses Not on filedocumented in this encounter Care Teams Honing Job Setter Relationship Specialty Start Date End Date Veronica Campbell APRN [address] [place] [address] PCP - General Family Medicine 01/18/22 documented as of this encounter
--- OUTSIDE RECORDS SUMMARY | 2024-10-18 15:33 | XMS_ITS | Encounter Summary ---
Author Organization [facility] Address [facility] [place] [address] Care Team Providers Care Mixer Machine Feeder Name Role Phone Veronica Campbell CHRISTEL Primary Care Provider [phone] Encounter Details Date Type Department Care Team (Late st Contact Info) Description 07/29/2023 12:51 PM EDT Anesthesia [place] [address] Rory Cruz MD [facility] [place] [address] Anesthesia Record Procedure Summary Procedure Name Responsible [...] cephalic vein (lateral side of arm), right; mnmh-zyg-tzaljp catheter system; Anatomical Landmarks; US Not Used; 18 gauge; ROSENDO Vega; distraction, tolerated well, appears comfortable; 11/26/23 (removed from pt's medical record today); 92002/24/22 1158 by Alexa Moreno RN 11/26/23 0921 by Juliet Walsh RN (RETIRED) Peripheral IV Line - Single Lumen 02/24/22; 1159; basilic vein (medial side of arm), left; iakv-llt-rpvbhd catheter system; Anatomical Landmarks; US Not Used; 20 gauge; ROSENDO Liu; distraction, tolerated well, appears comfortable; 11/26/23 (removed from pt.s medical record today); 92002/24/22 1159 by Alexa Moreno RN 11/26/23 0921 by Juliet Walsh RN PIV 07/29/23; 1220; oqzo-guc-ogptwc catheter system; 22 gauge; cephalic vein (lateral [...] Procedure Summary Date: 07/29/23 Room / Location: [facility] / [facility] Anesthesia Start: 1251 Anesthesia Stop: 1354 Procedure: BRONCH, W ENDOBRONCHIAL ULTRASOUND (EBUS) GUIDED SAMPLING, 3+ NODES (WRVU 4.96) Diagnosis: Lymphadenopathy (Lympahadenopathy/ Bronch with EBUS/ GA/ Christian) Surgeons: Toro Gonzales MD Responsible Provider: Rory Cruz MD Anesthesia Type: general ASA Status: 3 All Anesthesia Providers: Anesthesiologist: Rory Cruz MD HAMMER FITTER: Scarlett Zuñiga CRNA Vitals Value Taken Time BP 100/71 07/29/23 1400 Temp Pulse Resp 15 07/29/23 1352 SpO2 97 % 07/29/23 1401 Pain Level 2 07/29/23 1352 Vitals shown include unfiled device data. Patient Location: PACU/[facility] Level of Consciousness: Awake and Alert Pain [...] IMG S&I N/A 02/24/2022 CORONARY ANGIOGRAPHY; [facility],POSSIBLE PCI performed by Pablito Hunt MD at [facility] CATH LABS ??? PRO COLONOSCOPY, DIAGNOSTIC N/A 09/02/2015 COLONOSCOPY, DIAGNOSTIC performed by Roula Saez MD at [facility] Social History Tobacco Use ??? [...] REMOVE Please contact the Blood Bank at [phone] for questions. ??? Amoxicillin-Pot Clavulanate CIS - [...] risks discussed with patient. Plan discussed with HAMMER FITTER and attending. Anesthesia Screening documented in this encounter Plan of Treatment Upcoming Encounters Date Type Department Care Team (Late st Contact Info) Description 11/09/2024 10:40 AM EST Office Visit Cardiology at [address] [address] Pablito Hunt MD [facility] [place] [address] 03/20/2025 3:00 PM EDT Office Visit Dermatology at [facility] [address] [place] [address] Jeremiah Preston MD [facility] [address] [place] [address] documented as of this encounter Visit Diagnoses [...] mg documented in this encounter Care Teams Mixer Machine Feeder Relationship Specialty Start Date End Date Veronica Campbell APRN [address] [place] [address] PCP - General Family Medicine 01/18/22 documented as of this encounter
--- OUTSIDE RECORDS SUMMARY | 2024-10-18 15:33 | XMS_ITS | Encounter Summary ---
Author Organization [facility] [place] [address] Care Team Providers Care Shot Core Drill Operator Helper Name Role Phone Veronica Campbell APRN Primary Care Provider [phone] Reason for Referral * Physical Therapy (Routine) - Closed Specialty Diagnoses / Procedures Referred By Jason garcia Referred To Contact Physical Therapy Diagnoses Right shoulder pain, unspecified chronicity Higinio Villalobos MD [facility] [place] [address] Referral ID Status Reason Start Date Expiration Date V isits Requested Visits Authorized [id number] Closed Evaluate and Treat 11/23/2023 05/21/2024 12 12 Reason for Visit * Reason Comments Establish Care MRI (REQ ALPINE) R RTC TEAR, Hx REPAIR DOS: 02/2023 (MARY) 2ND OPINION POSSIBLE OMAR * Consultation (Routine) - Authorized Specialty Diagnoses / Procedures Referred By Jason garcia Referred To Contact Orthopaedics Diagnoses Nontraumatic incomplete tear of rotator cuff, unspecified laterality R RTC Veronica Campbell APRN [address] [place] [address] [facility] [address] [place] [phone] Referral ID Status Reason Start Date Expiration Date Visits Requested Visits Authorized [id number] Authorized Consult, Test & Treat PCP Updated and/or Approved 11/08/2023 11/07/2024 6 6 Encounter Details Date Type Department Care Team (Late st Contact Info) Description 11/23/2023 11:20 AM EST Office [place] [address] Higinio Villalobos MD [facility] [place] [address] Right shoulder pain, unspecified chronicity Social History [...] from the original note were not included. [facility] Orthopaedics Section of Shoulder and Elbow Surgery Outpatient Clinic Visit Referral: Conrad Vera presents to see us in consultation today at the request of: Veronica Campbell APRN [address] [place] [address] Chief Complaint: Right shoulder pain History of [...] PCI performed by Pablito Hunt MD at [facility] GUIDED SAMPL 3/> NODE STATION/STRUX N/A 07/29/2023 BRONCH, W ENDOBRONCHIAL ULTRASOUND (EBUS) GUIDED SAMPLING, 3+ NODES (WRVU 4.96) performed by Toro Gonzales MD at [facility] COLONOSCOPY, DIAGNOSTIC N/A 09/02/2015 COLONOSCOPY, DIAGNOSTIC performed by Roula Saez MD at [facility] No family history on file. Social [...] on file Pertinent Review of Systems Per HPI Meds: Current Outpatient Medications on File Prior [...] breakfast). One a day FreeStyle Elma 2 [place] Misc 1 each by Other route daily. [...] Tablet(s), PO, Once daily [DISCONTINUED] Dexcom G6 Foxing Closer Misc 1 each by [facility].(Non-Drug; Combo Route) route continuous. Useas directed for [...] less than $75,000 # People Supported 2 Faroese, , No, not Faroese// Race White Health Literacy Extremely Currently working No Not working because: Retired 11/23/2023 [facility] Response ASES VAS-RIGHT 1 ASES ADL-RIGHT ARM [...] and Elbow Surgeon Department of Orthopaedic Surgery [facility] This note was created with the assistance of voice dictation software. Please excuse any related errors. documented in this encounter Plan of Treatment Upcoming Encounters Date Type Department Care Team (Late st Contact Info) Description 11/09/2024 10:40 AM EST Office Visit Cardiology at [address] [address] Pablito Hunt MD [facility] [place] [address] 03/20/2025 3:00 PM EDT Office Visit Dermatology at [facility] [address] [place] [address] Jeremiah Preston MD [facility] [place] [address] Scheduled Orders Name Type Priority Associated Diagnoses Orde r Schedule CBC (with Diff) Lab Routine Right shoulder pain, unspecified chronicity Expected: 11/23/2023, Expires: 11/22/2024 Scheduled Referrals Name Type Priority Associated Diagnoses [...] have questions please contact the health child day care center worker that requested your imaging first. ? Electronically signed by: Maddy Campbell MD, [facility] ([phone]), at 12/24/2023 2:11 PM Narrative 12/24/2023 2:11 [...] who have questions please contactthe health child day care center worker that requested your imaging first. Higinio Villalobos MD IMG FLUORO ORDERABLE S documented in this encounter Visit Diagnoses Diagnosis Right shoulder pain, unspecified chronicity Right shoulder pain, unspecified chronicity documented in this encounter Care Teams Shot Core Drill Operator Helper Relationship Specialty Start Date End Date Veronica Campbell APRN [address] [place] [address] PCP - General Family Medicine 01/18/22 documented as of this encounter
--- OUTSIDE RECORDS SUMMARY | 2024-10-18 15:33 | XMS_ITS | Encounter Summary ---
Author Organization [facility] Address [facility] [place] [address] Care Team Providers Care Process Chemist Name Role Phone Veronica Campbell APRN Primary Care Provider [phone] Reason for Referral * Consultation (Priority 3) - Closed Specialty Diagnoses / Procedures Referred By Jason garcia Referred To Contact Dermatology Diagnoses Skin exam, screening for cancer FSE Veronica Campbell APRN [address] [place] [address] [facility] Dermatology [address] [place] [address] Referral ID Status Reason Start Date Expiration Date V isits Requested Visits Authorized [id number] Closed Consult, Test & Treat PCP Updated and/or Approved 03/16/2023 03/15/2024 12 12 Encounter Details Date Type Department Care Team (Latest Contact Info) Description 03/16/2023 Transcribe Orders eDH Incoming Referrals [phone] Veronica Campbell APRN [address] [place] [address] Skin exam, screening for cancer [...] AM EST Office Visit Cardiology at [address] [place] [address] Pablito Hunt MD [facility] [place] [address] 03/20/2025 3:00 PM EDT Office Visit Dermatology at [facility] [address] [place] [address] Jeremiah Preston MD [facility] [address] [place] [address] Scheduled Referrals Name Type Priority Associated Diagnoses Order Schedule Referral to Dermatology Outpatient Referral Routine Skin exam, screening for cancer Ordered: 03/16/2023 documented as of this encounter Visit Diagnoses Diagnosis Skin exam, screening for cancer Screening for malignant neoplasm of the skin documented in this encounter Care Teams Process Chemist Relationship Specialty Start Date End Date Veronica Campbell APRN [address] [place] [address] PCP - General Family Medicine 01/18/22 documented as of this encounter
--- OUTSIDE RECORDS SUMMARY | 2024-10-18 15:33 | XMS_ITS | Encounter Summary ---
[place] [address] Care Team Providers Care Set Up Inspector Name Role Phone Veronica Campbell APRN Primary Care Provider [phone] Encounter Details Date Type Department Care Team (Late st Contact Info) Description 10/14/2023 Telephone [place] [phone] Lelo Bajwa Social History Tobacco Use Types [...] 10:40 AM EST Office Visit Cardiology at [address] [address] Pablito Hunt MD [facility] [place] [address] 03/20/2025 3:00 PM EDT Office Visit Dermatology at [facility] [address] [place] [address] Jeremiah Preston MD [facility] [place] [address] documented as of this encounter Visit Diagnoses Not on filedocumented in this encounter Care Teams Set Up Inspector Relationship Specialty Start Date End Date Veronica Campbell APRN [address] [place] [address] PCP - General Family Medicine 01/18/22 documented as of this encounter
--- OUTSIDE RECORDS SUMMARY | 2024-10-18 15:33 | XMS_ITS | Encounter Summary ---
Author Organization [facility] [place] [address] Care Team Providers Care Surgical Manager Name Role Phone Veronica Campbell CHRISTEL Primary Care Provider [phone] Encounter Details Date Type Department Care Team (Late st Contact Info) Description 06/02/2023 3:20 PM EDT Office Visit Cardiology at [address] [address] Pablito Hunt MD [facility] [place] [address] Coronary artery disease, unspecified vessel or lesion type, unspecified whether angina present, unspecified whether [place] or transplanted heart Social History Tobacco Use [...] from the original note were [place] [address] Referring Provider: Veronica Campbell APRN [address] [place] [address] Reason for Consultation / Chief Complaint: Dyspnea [...] lowproBNP. TTE was reportedly unremarkable up at [place]. 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 Family History: Father of [place], mother's extended family with heart failure ALLERGIES: Allergies Allergen Reactions Red Blood Cells Antibodies-Difficult to Crossmatch DO NOT REMOVE Please contact the Blood Bank at [phone] for questions. Amoxicillin-Pot Clavulanate CIS - Nausea/Vomiting, [...] shutdown MEDICATIONS: Current Outpatient Medications: Dexcom G6 Show Design Supervisor Misc, 1 each by [facility].(Non-Drug; Combo Route) route continuous. Use as directed [...] 1 each, Rfl: 3 FreeStyle Elma 2 [place] Misc, 1 each by Other route daily. [...] 01/2022: Sinus rhythm with PVCs, prior inferior [place] TTE 12/2021: Normal biventricular systolic function, EF 62%, normal valves, ascending aorta 3.7 cm Lipid Panel Lab Results Component Value Date CHLPL 100 02/25/2022 HDL 20 02/25/2022 CHOLHDL 5.0 02/25/2022 TRIG 420 02/25/2022 LDLCHOL Not Calculated 02/25/2022 LDLDIRECT 28 02/25/2022 A/P: Conrad eVra is a 68 y.o. male who presents [...] current therapy 3: Follow-up in 6 months Pabltio Hunt MD 06/02/2023 3:53 PM documented in this encounter Plan of Treatment Upcoming Encounters Date Type Department Care Team (Late st Contact Info) Description 11/09/2024 10:40 AM EST Office Visit Cardiology at [address] [address] Pablito Hunt MD [facility] [place] [address] 03/20/2025 3:00 PM EDT Office Visit Dermatology at [address] [place] [address] Jeremiah Preston MD [facility] [place] [address] documented as of this encounter Procedures Procedure Name Priority Date/Time Associated Diagnosis Comments EKG 12-LEAD Routine 06/02/2023 3:21 PM EDT Coronary artery disease, unspecified vessel or lesion type, unspecified whether angina present, unspecified whether [place] or transplanted heart documented in this encounter Results * EKG 12 Lead (06/02/2023 3:21 PM EDT) Ventricular rate 73 BPM MUSE SYSTEM Atrial Rate 73 BPM MUSE SYSTEM P-R Interval 156 ms MUSE SYSTEM QRS Duration 90 ms MUSE SYSTEM Q-T Interval 384 ms MUSE SYSTEM QTC Calculated (Bezet) 423 ms MUSE SYSTEM Calculated P [place] 10 degrees MUSE SYSTEM Calculated R [place] -11 degrees MUSE SYSTEM Calculated T [place] 47 degrees MUSE SYSTEM INTERPRETATION Normal sinus rhythm 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) Abnormal ECG When compared with ECG of 09-APR-2022 12:48, Nonspecific T wave abnormality, improved in Lateral leads Confirmed by Morelia Alford ([id number]) on 06/03/2023 9:00:59 PM MUSE SYSTEM 06/02/2023 3:21 PM EDT 06/03/2023 9:00 PM EDT Pablito Hunt MD ECG ORDERABLES MUSE SYSTEM documented in this encounter Visit Diagnoses Diagnosis Coronary artery disease, unspecified vessel or lesion type, unspecified whether angina present, unspecified whether [place] or transplanted heart documented in this encounter Care Teams Surgical Manager Relationship Specialty Start Date End Date Veronica Campbell APRN [address] [place] [address] PCP - General Family Medicine 01/18/22 documented as of this encounter
--- OUTSIDE RECORDS SUMMARY | 2024-10-18 15:33 | XMS_ITS | Encounter Summary ---
Author Organization [facility] [place] [address] Care Team Providers Care Hospice Team Lead Name Role Phone Veronica Campbell APRN Primary Care Provider [phone] Encounter Details Date Type Department Care Team (Late st Contact Info) Description 01/05/2023 Ancillary Procedure Radiology Library at [facility] [place] [address] Veronica Campbell APRN [address] [place], [place] [address] Social History Tobacco Use Types Packs/Day Years [...] 10:40 AM EST Office Visit Cardiology at [address] [place] [address] Pablito Hunt MD [facility] [place] [address] 03/20/2025 3:00 PM EDT Office Visit Dermatology at [facility] [address] [place] [address] Jeremiah Preston MD [facility] DR YARA [place] [address] documented as of this encounter Procedures Procedure Name Priority Date/Time Associated Diagnosis Comments FILM LIBRARY STORAGE ONLY MR SHOULDER Routine 01/05/2023 12:00 AM EDT documented in this encounter Results * Film Library- Storage Only MR Shoulder (01/05/2023 12:00 AM EDT) Narrative [facility] - 11/08/2023 5:00 PM EST This exam is auto-finalizing. It's purpose is for storage only. Veronica Campbell APRN IMG FILM LIBRARY ORD ERABLES [place], [place] documented in this encounter Visit Diagnoses Not on filedocumented in this encounter Care Teams Hospice Team Lead Relationship Specialty Start Date End Date Veronica Campbell APRN [address] [place] [address] PCP - General Family Medicine 01/18/22 documented as of this encounter
--- OUTSIDE RECORDS SUMMARY | 2024-10-18 15:34 | XMS_ITS | Encounter Summary ---
Author Organization [facility] [place] [address] Care Team Providers Care Hand Tile Maker Name Role Phone Veronica Campbell CHRISTEL Primary Care Provider [phone] Encounter Details Date Type Department Care Team (Late st Contact Info) Description 02/16/2022 Orders [place] [address] Diana Altamirano, RN Encounter for preprocedure screening [...] AM EST Office Visit Cardiology at [address] [phone] Pablito Hunt MD [facility] [address] 03/20/2025 3:00 PM EDT Office Visit Dermatology at [facility] [address] [place] [address] [facility] DR YARA [place] [address] documented as of this encounter Results * COVID-19 PCR (02/24/2022 4:54 PM EDT) SARS-CoV-2 RNA Not Detected Not Detected [facility] Comment: This result should be [...] diagnosis of COVID-19 is performed using the [employer] m SARS-CoV-2 Assay as authorized by the FDA Emergency Use Authorization (EUA). This EUA assay is intended for In-vitro Diagnostic (IVD) use with respiratory specimens such as nasopharyngeal swabs collected from individuals during the acute phase of infection. This assay is performed based on the instructions for use provided by [employer] and additional guidance provided by CDC and FDA. Testing is performed in the Clinical Genomics and Advanced Technology Laboratory within the Department of Pathology and Laboratory Medicine at [facility], certified under the Clinical Laboratory Improvement [...] fact sheets at the following FDA website: https://www.fda.gov/medical-devices/ufgicwnrmqq-dipjuls-9016-wiebw-32-zctrxjrne- use-a xfhfnqwwpcyox-swodvpj-aktrjam/fauts-ojjqtghrnnf-aiky SARS-CoV-2 RNA Source BURNER SHAFT Swab [facility] Nasopharyngeal Swab 02/25/20 4:54 PM EDT 02/24/2022 9:01 PM EDT Comment:Symptoms->Asymptomat ic Narrative Resulting Agency Comment Spec In Lab Pablito Hunt MD MOLECULAR ORDERABLES Performing Organization Address City/State/[facility] Co de Phone Number [facility] [place] [address] documented in this encounter Visit Diagnoses Diagnosis Encounter for preprocedure screening laboratory testing for COVID-19- Primary documented in this encounter Care Teams Hand Tile Maker Relationship Specialty Start Date End Date Veronica Campbell APRN [address] [place] [address] PCP - General Family Medicine 01/18/22 documented as of this encounter
--- OUTSIDE RECORDS SUMMARY | 2024-10-18 15:34 | XMS_ITS | Encounter Summary ---
Author Organization [facility] [place] [address] Care Team Providers Care Waste Reclaimer Name Role Phone Veronica Campbell CHRISTEL Primary Care Provider [phone] Encounter Details Date Type Department Care Team (Late st Contact Info) Description 04/10/2022 Telephone Cardiology at [address] [address] Pablito Hunt MD [facility] [place] [address] Social History Tobacco Use Types Packs/Day Years [...] 10:40 AM EST Office Visit Cardiology at [address] [address] Pablito Hunt MD [facility] [place] [address] 03/20/2025 3:00 PM EDT Office Visit Dermatology at [facility] [address] [place] [address] Jeremiah Preston MD [facility] [place] [address] documented as of this encounter Visit Diagnoses Not on filedocumented in this encounter Care Teams Waste Reclaimer Relationship Specialty Start Date End Date Veronica Campbell APRN [address] [place] [address] PCP - General Family Medicine 01/18/22 documented as of this encounter
--- OUTSIDE RECORDS SUMMARY | 2024-10-18 15:34 | XMS_ITS | Encounter Summary ---
Author Organization [facility] [place] [address] Care Team Providers Care Database Architect Name Role Phone Cipriano Yuan MD Primary Care Provider [phone] Encounter Details Date Type Department Care Team (Late st Contact Info) Description 09/02/2015 8:45 AM EST - 09/02/2015 9:30 AM EST [place] [address] Roula Saez MD [facility] [place] [address] COLONOSCOPY, DIAGNOSTIC (WRVU 3.26) Social History Tobacco [...] to be checked. Wednesday-Wednesday Same Day Endo [phone] Otherwise contact [phone] and ask to speak to the turning and beading machine operator cone cleaner Follow up care is a lopez part [...] AM EST Office Visit Cardiology at [address] [address] Pablito Hunt MD [facility] [place] [address] 03/20/2025 3:00 PM EDT Office Visit Dermatology at [facility] [address] [place] [address] Jeremiah Preston MD [facility] DR Y[address] [place] [address] documented as of this encounter Procedures Procedure Name Priority Date/Time Associated Diagnosis Comments COLONOSCOPY, DIAGNOSTIC (WRVU 3.26) 09/02/2015 8:44 AM EST recurrent diverticulitis COLONOSCOPY Routine 09/02/2015 8:28 AM EST documented in this encounter Results * COLONOSCOPY (09/02/2015 8:28 AM EST) COLONOSCOPY [facility] Endoscopy Patient Name: Conrad Vera ? Procedure Date: 09/02/2015 8:28 AM ? Date of : 1955 ? Age: 60 ? Order #: [id number] ? Procedure: ? Colonoscopy Indications: ? High risk colon cancer surveillance: ? Personal history of colonic polyps ? Also recurrent diverticulitis Providers: ? Roula Saez MD, Nicolle Bruner RN, ? Wendy Starks, Oncology Social Work Referring : ?Cipriano Yuan MD, Yovanny Renteria [...] AM EST Cipriano Yuan MD [facility] Performing Organization Address City/State/[facility] Co de Phone Number [employer] documented [...] CRNA) documented in this encounter Care Teams Database Architect Relationship Specialty Start Date End Date Cipriano Yuan MD [address] [place] [address] PCP - General Family Medicine 07/19/15 01/17/22 documented as of this encounter
--- OUTSIDE RECORDS SUMMARY | 2024-10-18 15:34 | XMS_ITS | Encounter Summary ---
[place] [address] Care Team Providers Care Control Clerk Repairs Name Role Phone Veronica Campbell APRN Primary Care Provider [phone] Reason for Referral * Consultation (Routine) - Closed Specialty Diagnoses / Procedures Referred By Jason garcia Referred To Contact Endocrinology Diagnoses Type 2 diabetes mellitus without complication, unspecified whether group home insulin use Veronica Campbell APRN [address] [place] [address] [facility] Endocrinology [address] [place] [phone] Referral ID Status Reason Start Date Expiration Date V isits Requested Visits Authorized [id number] Closed Consult, Test & Treat PCP Updated and/or Approved 05/08/2022 05/08/2023 6 6 Encounter Details Date Type Department Care Team (Latest Contact Info) Description 05/08/2022 Transcribe Orders eDH Incoming Referrals [phone] Veronica Campbell APRN [address] [place], [place] [address] Type 2 diabetes mellitus without complication, unspecified whether group home insulin use Social History Tobacco Use Types [...] AM EST Office Visit Cardiology at [address] [address] Pablito Hunt MD [facility] [place] [address] 03/20/2025 3:00 PM EDT Office Visit Dermatology at [facility] [address] [place] [address] Jeremiah Preston MD [facility] DR Y[address] [place] [address] Scheduled Referrals Name Type Priority Associated Diagnoses Order Schedule Referral to Endocrinology Outpatient Referral Routine Type 2 diabetes mellitus without complication, unspecified whether roasterman insulin use Ordered: 05/08/2022 documented as of this encounter Visit Diagnoses Diagnosis Type 2 diabetes mellitus without complication, unspecified whether group home insulin use documented in this encounter Care Teams Control Clerk Repairs Relationship Specialty Start Date End Date Veronica Campbell APRN [address] [place] [address] PCP - General Family Medicine 01/18/22 documented as of this encounter
--- OUTSIDE RECORDS SUMMARY | 2024-10-18 15:34 | XMS_ITS | Encounter Summary ---
Author Organization [facility] [place] [address] Care Team Providers Care Gun Fitter Name Role Phone Veronica Campbell CHRISTEL Primary Care Provider [phone] Encounter Details Date Type Department Care Team [...] AM EST Office Visit Cardiology at [address] [address] Pablito Hunt MD [facility] [place] [place] [address] 03/20/2025 3:00 PM EDT Office Visit Dermatology at [facility] [address] [place] [address] Jeremiah Preston MD [facility] DR YARA WHITE[place] [address] documented as of this encounter Visit Diagnoses Not on filedocumented in this encounter Care Teams Gun Fitter Relationship Specialty Start Date End Date Veronica Campbell APRN [address] [place] [address] PCP - General Family Medicine 01/18/22 documented as of this encounter
--- OUTSIDE RECORDS SUMMARY | 2024-10-18 15:34 | XMS_ITS | Encounter Summary ---
Author Organization [facility] [place] [address] Care Team Providers Care Wool Grower Name Role Phone Veronica Campbell CHRISTEL Primary Care Provider [phone] Encounter Details Date Type Department Care Team (Late st Contact Info) Description 06/02/2022 [place]phone [place] [phone] Kathryn Lovelace Social History Tobacco Use Types [...] pft as he had one from his import clerk and refused to have it today documented in this encounter Plan of Treatment Upcoming Encounters Date Type Department Care Team (Late st Contact Info) Description 11/09/2024 10:40 AM EST Office Visit Cardiology at [address] [phone] Pablito Hunt MD [facility] [place] [address] 03/20/2025 3:00 PM EDT Office Visit Dermatology at [facility] [address] [place] [phone] Jeremiah [place] MD [facility] [place] [address] documented as of this encounter Visit Diagnoses Not on filedocumented in this encounter Care Teams Wool Grower Relationship Specialty Start Date End Date Veronica Campbell APRN [address] [place] [address] PCP - General Family Medicine 01/18/22 documented as of this encounter
--- OUTSIDE RECORDS SUMMARY | 2024-10-18 15:34 | XMS_ITS | Encounter Summary ---
[place] [address] Care Team Providers Care Barrel Cap Setter Name Role Phone Veronica Campbell APRN Primary Care Provider [phone] Encounter Details Date Type Department Care Team (Late st Contact Info) Description 07/29/2022 Telephone Cardiology at [address] [phone] Nicolle Campos, RN Social History Tobacco Use [...] Telephone Encounter - Nicolle Campos RN - 07/29/2022 8:18 AM EDT [...] answer and would also be sending a Waynaut message. Answering system does not identify patient, Nicolle Campos RN 4A Cardiology , documented in this encounter Plan of Treatment Upcoming Encounters Date Type Department Care Team (Late st Contact Info) Description 11/09/2024 10:40 AM EST Office Visit Cardiology at [address] [address] Pablito Hunt MD [facility] [address] 03/20/2025 3:00 PM EDT Office Visit Dermatology at [facility] [address] [place] [address] Jeremiah [place] MD [facility] DR Y[address] [place] [address] documented as of this encounter Visit Diagnoses Not on filedocumented in this encounter Care Teams Barrel Cap Setter Relationship Specialty Start Date End Date Veronica Campbell APRN [address] [place] [address] PCP - General Family Medicine 01/18/22 documented as of this encounter
--- OUTSIDE RECORDS SUMMARY | 2024-10-18 15:34 | XMS_ITS | Encounter Summary ---
Author Organization [facility] [place] [address] Care Team Providers Care Title Attorney Name Role Phone Veronica Campbell CHRISTEL Primary Care Provider [phone] Encounter Details Date Type Department Care Team (Late st Contact Info) Description 04/09/2022 1:00 PM EDT Office Visit Cardiology at [address] [address] Pablito Hunt MD [facility] [place] [address] Coronary artery disease involving coronary bypass graft of [place] heart without angina pectoris (Primary Dx); SOB [...] original note were not included. [facility] [place] [address] Referring Provider: Chetan Hutchison MD [facility] [place] [address] Reason for Consultation / Chief Complaint: Dyspnea [...] to his CABG. 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 Family History: Father of MS, mother's extended family with heart failure ALLERGIES: Allergies Allergen Reactions ??? Red Blood Cells Antibodies-Difficult to Crossmatch DO NOT REMOVE Please contact the Blood Bank at [phone] for questions. ??? Amoxicillin-Pot Clavulanate CIS - [...] 01/2022: Sinus rhythm with PVCs, prior inferior MS TTE 12/2021: Normal biventricular systolic function, EF [...] AM EST Office Visit Cardiology at [address] [address] Pablito Hunt MD [facility] [place] [address] 03/20/2025 3:00 PM EDT Office Visit Dermatology at [facility] [address] [place] [phone] Jeremiah [place] MD [facility] YARA [place] [address] documented as of this encounter Procedures Procedure Name Priority Date/Time Associated Diagnosis Comments HEMOGRAM Routine 04/09/2022 2:08 PM EDT Coronary artery disease involving coronary bypass graft of [place] heart without angina pectoris DIFFERENTIAL, AUTOMATED Routine 04/09/2022 2:08 PM EDT Coronary artery disease involving coronary bypass graft of [place] heart without angina pectoris HC VENIPUNCTURE Routine 04/09/2022 2:08 PM EDT Coronary artery disease involving coronary bypass graft of [place] heart without angina pectoris HC PROBNP Routine 04/09/2022 2:08 PM EDT Coronary artery disease involving coronary bypass graft of [place] heart without angina pectoris SOB (shortness of breath) BASIC METABOLIC PANEL Routine 04/09/2022 2:08 PM EDT Coronary artery disease involving coronary bypass graft of [place] heart without angina pectoris EKG 12-LEAD Routine 04/09/2022 12:48 PM EDT Coronary artery disease involving coronary bypass graft of [place] heart without angina pectoris SOB (shortness of [...] who have questions please contact the health outdoor emergency care technician that requested your imaging first. ? Electronically signed by: Paulie Glez DO, [facility] ([phone]), at 04/09/2022 3:28 PM Narrative 04/09/2022 3:28 [...] patients who have questions please contactthe health outdoor emergency care technician that requested your imaging first. Pablito Hunt MD IMG DX ORDERABLES * (ABNORMAL) Differential, Automated (04/09/2022 2:08 PM EDT) Neutrophil % 60.8 % [facility] Neutrophil Absolute 6.02 1.70 - 6.10 x10(3)/mc L [facility] Lymph % 22.9 % [facility] Lymphocytes Abs 2.3 0.9 - 3.2 x10(3)/mc L [facility] Monocyte % 7.1 % [facility] Monocyte Abs 0.7 0.3 - 0.9 x10(3)/mc L [facility] Eos % 7.6 % [facility] Eosinophils Abs 0.8(H) 0.0 - 0.4 x10(3)/mc L [facility] Basophil % 1.0 % [facility] Baso Absolute 0.1 0.0 - 0.1 x10(3)/mc L [facility] Immature Gran % 0.60 % [facility] Comment: Immature granulocytes(IG's)percentage and absolute count will include metamyelocytes, myelocytes, and promyelocytes. Blood smears from CBCs yielding IG's will be scanned manually for concordance. If this scan disagrees with the automated IG or if promyelocytes are noted, a manual differential will be performed. Immature Gran Absolute 0.06(H) 0.00 - 0.04 x10(3)/mc L [facility] Blood 04/09/2022 2:08 PM EDT 04/09/2022 2:12 PM EDT Narrative Resulting Agency Comment Spec In Lab Pablito Hunt MD HEMATOLOGY ORDERABLE S [facility] [place] [id number] * (ABNORMAL) Hemogram (04/09/2022 2:08 PM EDT) [facility] White Blood Cell 9.9(H) 4.0 - 9.5 x10(3)/[facility] Red Blood Cell 4.46(L) 4.58 - 5.54 x10(6)/[facility] Hemoglobin 13.6(L) 13.7 - 16.5 g/dL [facility] Hematocrit 39.9(L) 40.5 - 48.5 % [facility] Mean Cell Volume 89.5 82.9 - 93.1 fL [facility] Mean Cell Hemoglobin 30.5 27.5 - 32.1 pg [facility] Mean Cell Hemoglobin Concentration 34.1 32.0 - 35.7 g/dL [facility] Platelet 156 145 - 357 x10(3)/[facility] RDW Standard Deviation 43.7 36.0 - 45.0 [facility] RDW coefficient of variation 13.4 11.4 - 13.8 % [facility] Mean Platelet Volume 10.7 7.6 - 12.9 fL [facility] NRBC% auto 0.0 % [facility] NRBC Absolute 0.000 0.000 - 0.000 x10(3)/[facility] Blood 04/09/2022 2:08 PM EDT 04/09/2022 2:12 PM EDT Narrative Resulting Agency Comment Spec In Lab Pablito Hunt MD HEMATOLOGY ORDERABLE S [facility] [place] [address] * (ABNORMAL) Basic Metabolic Panel (non-fasting) (04/09/2022 2:08 PM EDT) [facility] Glucose 259(H) 65 - 199 mg/dL [facility] Comment:Diabetes: >=200 mg/d L plus symptoms Blood Urea Nitrogen 13 10 - 20 mg/dL [facility] Creatinine 1.09 0.80 - 1.50 mg/dL [facility] Sodium 136 135 - 145 mmol/L [facility] Potassium 4.5 3.5 - 5.0 mmol/L [facility] Comment: Please note: ??Patients with WBC >100,000 may have falsely elevated Potassium levels. ??For accurate Potassium quantification in these patients send serum separator tube (gold top) for subsequent determinations. ??Contact the Clinical Chemistry Laboratory if there are any questions. Chloride 102 98 - 107 mmol/L [facility] Carbon Dioxide 24 22 - 31 mmol/L [facility] Anion Gap 10 5 - 15 mmol/L [facility] Calcium 10.5 8.5 - 10.5 mg/dL [facility] Est Glomerular Filtration Rate 73 >=60 mL/min/1. 73 m?? [facility] Comment: This patient's estimated GFR [...] In Lab Pablito Hunt MD CHEMISTRY ORDERABLES [facility] [place] [address] * pro-Brain Natriuretic Peptide (04/09/2022 2:08 PM EDT) NT-proBNP 24 <=124 pg/mL [facility] Blood 04/09/2022 2:08 PM EDT 04/09/2022 2:12 PM EDT Narrative Resulting Agency Comment Spec In Lab Pablito Hunt MD CHEMISTRY ORDERABLES [facility] [place] [address] * EKG 12 Lead (04/09/2022 12:48 PM EDT) Ventricular rate 82 BPM MUSE SYSTEM Atrial Rate 82 BPM MUSE SYSTEM P-R Interval 154 ms MUSE SYSTEM QRS Duration 84 ms MUSE SYSTEM Q-T Interval 366 ms MUSE SYSTEM QTC Calculated (Bezet) 427 ms MUSE SYSTEM Calculated P Jasper 23 degrees MUSE SYSTEM Calculated R Jasper -10 degrees MUSE SYSTEM Calculated T Jasper 36 degrees MUSE SYSTEM INTERPRETATION Normal sinus [...] Hunt MD ECG ORDERABLES Performing Organization Address City/[facility]/ZIP Co de Phone Number MUSE SYSTEM documented in this encounter Visit Diagnoses Diagnosis Coronary artery disease involving coronary bypass graft of [place] heart without angina pectoris- Primary SOB (shortness of breath) Shortness of breath Coronary artery disease due to lipid rich plaque Primary hypertension Unspecified essential hypertension SOB (shortness of breath) Shortness of breath documented in this encounter Care Teams Title Attorney Relationship Specialty Start Date End Date Veronica Campbell APRN [address] [place] [address] PCP - General Family Medicine 01/18/22 documented as of this encounter
--- OUTSIDE RECORDS SUMMARY | 2024-10-18 15:34 | XMS_ITS | Encounter Summary ---
Author Organization [facility] [place] [address] Care Team Providers Care Paper Final Inspector Name Role Phone Veronica Campbell APRN Primary Care Provider [phone] Encounter Details Date Type Department Care Team (Late st Contact Info) Description 12/01/2022 Ancillary Procedure Radiology Library at [facility] [address] Veronica Campbell APRN [address] [place], [place] [address] Social History Tobacco Use Types Packs/Day Years [...] AM EST Office Visit Cardiology at [address] [place] [address] Pablito Hunt MD [facility] [place] [address] 03/20/2025 3:00 PM EDT Office Visit Dermatology at [facility] [address] [place] [address] Jeremiah [place] MD [facility] [place] [address] documented as of this encounter Procedures Procedure Name Priority Date/Time Associated Diagnosis Comments FILM LIBRARY STORAGE ONLY DX SHOULDER Routine 12/01/2022 12:00 AM EST documented in this encounter Results * Film Library- Storage Only DX Shoulder (12/01/2022 12:00 AM EST) Narrative [facility] - 11/08/2023 5:00 PM EST This exam is auto-finalizing. It's purpose is for storage only. Veronica Campbell APRN IMAlfred FILM LIBRARY ORD ERABLES [place], [place] documented in this encounter Visit Diagnoses Not on filedocumented in this encounter Care Teams Paper Final Inspector Relationship Specialty Start Date End Date Veronica Campbell APRN [address] [place] [address] PCP - General Family Medicine 01/18/22 documented as of this encounter
--- OUTSIDE RECORDS SUMMARY | 2024-10-18 15:34 | XMS_ITS | Encounter Summary ---
Author Organization [facility] Address [facility] [place] [address] Care Team Providers Care Shell Sorter Name Role Phone Veronica Campbell CHRISTEL Primary Care Provider [phone] Reason for Visit * Reason Onset Date Comments Medication Refill 04/22/2022 Encounter Details Date Type Department Care Team (Late st Contact Info) Description 04/22/2022 Refill Cardiology at [address] [address] Pablito Hunt MD [facility] [place] [address] Medication Refill Social History Tobacco Use Types [...] Vascepa prescription to adifferent pharmacy. Identifies the [facility] [place], [place] as their preferred site. Note routed to Jarrod Hrenandez for review and signature - as Dr. [...] hypertensive despite prior medical therapy. Raza Jordan enrollment representative Team Nurse [facility] Ambulatory Cardiology documented in this encounter Plan of Treatment Upcoming Encounters Date Type Department Care Team (Late st Contact Info) Description 11/09/2024 10:40 AM EST Office Visit Cardiology at [address] [address] Pablito Hunt MD [facility] [place] [address] 03/20/2025 3:00 PM EDT Office Visit Dermatology at [facility] [address] [place] [address] Jeremiah [place] MD [facility] [place] [address] documented as of this encounter Visit Diagnoses Diagnosis Coronary artery disease, unspecified vessel or lesion type, unspecified whether angina present, unspecified whether dry creek or transplanted heart documented in this encounter Care Teams Shell Sorter Relationship Specialty Start Date End Date Veronica Campbell APRN [address] [place] [address] PCP - General Family Medicine 01/18/22 documented as of this encounter
--- OUTSIDE RECORDS SUMMARY | 2024-10-18 15:34 | XMS_ITS | Encounter Summary ---
Author Organization [facility] [place] [address] Care Team Providers Care Buyer Liaison Name Role Phone Veronica Campbell CHRISTEL Primary Care Provider [phone] Encounter Details Date Type Department Care Team (Late st Contact Info) Description 02/25/2022 Orders Only Cardiology at [address] [address] Chetan Hutchison MD Social History Tobacco Use Types Packs/Day Years [...] AM EST Office Visit Cardiology at [address] [address] Pablito Hunt MD [facility] [place] [address] 03/20/2025 3:00 PM EDT Office Visit Dermatology at [facility] [address] [place] [address] Jeremiah [place] MD [facility] [place] [address] documented as of this encounter Visit Diagnoses Not on filedocumented in this encounter Care Teams Buyer Liaison Relationship Specialty Start Date End Date Veronica Campbell APRN [address] [place] [address] PCP - General Family Medicine 01/18/22 documented as of this encounter
--- OUTSIDE RECORDS SUMMARY | 2024-10-18 15:34 | XMS_ITS | Encounter Summary ---
Author Organization [facility] [place] [address] Care Team Providers Care Car Refinisher Name Role Phone Veronica Campbell CHRISTEL Primary Care Provider [phone] Encounter Details Date Type Department Care Team (Late st Contact Info) Description 04/09/2022 Telephone [place] [address] Greta Montejo Social History Tobacco Use Types [...] 10:40 AM EST Office Visit Cardiology at [address] [address] Pablito Hunt MD [facility] [place] [address] 03/20/2025 3:00 PM EDT Office Visit Dermatology at [facility] [address] [place] [address] Jeremiah [place] MD [facility] [place] [address] documented as of this encounter Visit Diagnoses Not on filedocumented in this encounter Care Teams Car Refinisher Relationship Specialty Start Date End Date Veronica Campbell APRN [address] [place] [address] PCP - General Family Medicine 01/18/22 documented as of this encounter
--- OUTSIDE RECORDS SUMMARY | 2024-10-18 15:34 | XMS_ITS | Encounter Summary ---
[place] [address] Care Team Providers Care Ball Mill Mixer Name Role Phone Veronica Campbell CHRISTEL Primary Care Provider [phone] Reason for Visit * Reason Onset Date Comments Questions 06/24/2022 Dental cleaning Encounter Details Date Type Department Care Team (Late st Contact Info) Description 06/24/2022 Telephone Cardiology at [address] [address] Enedina Fay, RN Questions (Dental cleaning) Social [...] 10:40 AM EST Office Visit Cardiology at [address] [address] Pablito Hunt MD [facility] [place] [address] 03/20/2025 3:00 PM EDT Office Visit Dermatology at [facility] [address] [address] Jeremiah [place] MD [facility] DR Y[address] [place] [address] documented as of this encounter Visit Diagnoses Not on filedocumented in this encounter Care Teams Ball Mill Mixer Relationship Specialty Start Date End Date Veronica Campbell APRN [address] [place] [address] PCP - General Family Medicine 01/18/22 documented as of this encounter
--- OUTSIDE RECORDS SUMMARY | 2024-10-18 15:34 | XMS_ITS | Encounter Summary ---
Author Organization [facility] Address [facility] [place] [address] Care Team Providers Care Logging Superintendent Name Role Phone Veronica Campbell APRN Primary Care Provider [phone] Reason for Visit * Consultation (Routine) - Closed Specialty Diagnoses / Procedures Referred By Contac t Referred To Contact Cardiology Diagnoses Atherosclerosis of coronary artery bypass graft(s) without angina pectoris Other forms of dyspnea Type 2 diabetes mellitus without complications CAD, dyspnea, DM type 2. * SCANNED DOCS Veronica Campbell APRN [address] [place] [address] [facility] Cardiology [address] [place] [phone] Referral ID Status Reason Start Date Expiration Date V isits Requested Visits Authorized [id number] Closed Consult, Test & Treat PCP Updated and/or Approved 01/18/2022 01/18/2023 12 12 Encounter Details Date Type Department Care Team (Late st Contact Info) Description 01/29/2022 1:00 PM EDT Office Visit Cardiology at [address] [phone] Pablito Hunt MD [facility] [place] [address] Coronary artery disease due to lipid rich plaque; Primary hypertension; Coronary artery disease involving coronary bypass graft of [place] heart without angina pectoris; SOB (shortness of [...] from the original note were not included. 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 Family History: Father of [place], mother's extended family with heart failure ALLERGIES: [...] 01/2022: Sinus rhythm with PVCs, prior inferior [place] Labs / Reports Reviewed: TTE 12/2021: Normal [...] AM EST Office Visit Cardiology at [address] [address] Pablito Hunt MD [facility] [place] [address] 03/20/2025 3:00 PM EDT Office Visit Dermatology at [facility] [address] [place] [address] Jeremiah Preston MD [facility] [place] [address] documented as of this encounter Procedures Procedure [...] artery disease involving coronary bypass graft of [place] heart without angina pectoris SOB (shortness of breath) documented in this encounter Results * Differential, Automated (01/29/2022 1:54 PM EDT) Neutrophil % 61.6 % [facility] Neutrophil Absolute 5.39 1.70 - 6.10 x10(3)/[facility] Lymph % 28.1 % [facility] Lymphocytes Abs 2.5 0.9 - 3.2 x10(3)/[facility] Monocyte % 6.3 % [facility] Monocyte Abs 0.6 0.3 - 0.9 x10(3)/[facility] Eos % 2.7 % [facility] Eosinophils Abs 0.2 0.0 - 0.4 x10(3)/[facility] Basophil % 0.8 % [facility] Baso Absolute 0.1 0.0 - 0.1 x10(3)/[facility] Immature Gran % 0.50 % [facility] Comment: Immature granulocytes(IG's)percentage and absolute count will include metamyelocytes, myelocytes, and promyelocytes. Blood smears from CBCs yielding IG's will be scanned manually for concordance. If this scan disagrees with the automated IG or if promyelocytes are noted, a manual differential will be performed. Immature Gran Absolute 0.04 0.00 - 0.04 x10(3)/[facility] Blood 01/29/2022 1:54 PM EDT 01/29/2022 2:05 PM EDT Narrative Resulting Agency Comment Spec In Lab Pablito Hunt MD HEMATOLOGY ORDERABLE S Performing Organization Address City/State/[facility] Co de Phone Number [facility] [place] [address] * (ABNORMAL) Hemogram (01/29/2022 1:54 PM EDT) White Blood Cell 8.8 4.0 - 9.5 x10(3)/[facility] LABORATORY Red Blood Cell 4.42(L) 4.58 - 5.54 x10(6)/ L [facility] Hemoglobin 13.9 13.7 - 16.5 g/dL [facility] Hematocrit 39.9(L) 40.5 - 48.5 % [facility] Mean Cell Volume 90.3 82.9 - 93.1 fL [facility] Mean Cell Hemoglobin 31.4 27.5 - 32.1 pg [facility] Mean Cell Hemoglobin Concentration 34.8 32.0 - 35.7 g/dL [facility] Platelet 125(L) 145 - 357 x10(3)/ L [facility] RDW Standard Deviation 43.6 36.0 - 45.0 fL [facility] RDW coefficient of variation 13.2 11.4 - 13.8 % [facility] Mean Platelet Volume 11.3 7.6 - 12.9 fL [facility] NRBC% auto 0.0 % [facility] NRBC Absolute 0.000 0.000 - 0.000 x10(3)/mc L [facility] Blood 01/29/2022 1:54 PM EDT 01/29/2022 2:05 PM EDT Narrative Resulting Agency Comment Spec In Lab Pablito Hunt MD HEMATOLOGY ORDERABLE S Performing Organization Address City/State/[facility] Co de Phone Number [facility] [place] [address] * (ABNORMAL) Basic Metabolic Panel (non-fasting) (01/29/2022 1:54 PM EDT) Glucose 174 65 - 199 mg/dL [facility] Comment:Diabetes: >=200 mg/d L plus symptoms Blood Urea Nitrogen 13 10 - 20 mg/dL [facility] Creatinine 1.03 0.80 - 1.50 mg/dL [facility] Sodium 137 135 - 145 mmol/L [facility] Potassium 4.4 3.5 - 5.0 mmol/L [facility] Comment: Please note: ??Patients with WBC >100,000 may have falsely elevated Potassium levels. ??For accurate Potassium quantification in these patients send serum separator tube (gold top) for subsequent determinations. ??Contact the Clinical Chemistry Laboratory if there are any questions. Chloride 104 98 - 107 mmol/L [facility] Carbon Dioxide 21(L) 22 - 31 mmol/L [facility] Anion Gap 12 5 - 15 mmol/L [facility] Calcium 9.9 8.5 - 10.5 mg/dL [facility] Est Glomerular Filtration Rate 74 >=60 mL/min/1. 73 m?? [facility] Comment: This patient? s [...] Hunt MD CHEMISTRY ORDERABLES Performing Organization Address City/[facility] Co de Phone Number [facility] [place] [address] * EKG 12 Lead (01/29/2022 12:52 PM EDT) Ventricular rate 72 BPM MUSE SYSTEM Atrial Rate 72 BPM MUSE SYSTEM P-R Interval 144 ms MUSE SYSTEM QRS Duration 84 ms MUSE SYSTEM Q-T Interval 380 ms MUSE SYSTEM QTC Calculated (Bezet) 416 ms MUSE SYSTEM Calculated P [place] 16 degrees MUSE SYSTEM Calculated R [place] -10 degrees MUSE SYSTEM Calculated T [place] 62 degrees MUSE SYSTEM INTERPRETATION Sinus rhythm Occasional Premature ventricular complexes 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) Cannot rule out Anterior infarct , age undetermined Abnormal ECG When compared with ECG of 04-DEC-2010 15:34, Premature ventricular complexes are now Present Confirmed by MD Unger Danette ([id number]) on 01/29/2022 2:57:31 PM MUSE SYSTEM 01/29/2022 12:5 2 PM EDT 01/29/2022 2:57 PM EDT Pablito Hunt MD ECG ORDERABLES Performing Organization Address City/[facility]/ZIP Co de Phone Number MUSE SYSTEM documented in this encounter Visit Diagnoses Diagnosis Coronary artery disease due to lipid rich plaque Primary hypertension Unspecified essential hypertension Coronary artery disease involving coronary bypass graft of [place] heart without angina pectoris SOB (shortness of breath) Shortness of breath documented in this encounter Care Teams Logging Superintendent Relationship Specialty Start Date End Date Veronica Campbell APRN [address] [place] [address] PCP - General Family Medicine 01/18/22 documented as of this encounter
--- OUTSIDE RECORDS SUMMARY | 2024-10-18 15:34 | XMS_ITS | Encounter Summary ---
Author Organization [facility] [place] [address] Care Team Providers Care Sintering Plant Supervisor Name Role Phone Adrian Veronica CHRISTEL Primary Care Provider [phone] Reason for Referral * Consultation (Routine) - Closed Specialty Diagnoses / Procedures Referred By Contact Referred To Contact Cardiac Rehabilitation Diagnoses S/P coronary artery stent placement Pablito Hunt MD [facility] [place] [address] Cardiac Rehab, [address] [place] [address] Referral ID Status Reason Start Date Expiration Date V isits Requested Visits Authorized [id number] Closed Consult, Test & Treat 04/10/2022 10/07/2022 36 36 Encounter Details Date Type Department Care Team (Late st Contact Info) Description 04/10/2022 [place] [address] Vane Villalta RN S/P coronary artery stent [...] like a referral for cardiac rehab at [facility]. Rferral sent out today. documented in this encounter Plan of Treatment Upcoming Encounters Date Type Department Care Team (Late st Contact Info) Description 11/09/2024 10:40 AM EST Office Visit Cardiology at [address] [address] Pablito Hunt MD [facility] [place] [place] [address] 03/20/2025 3:00 PM EDT Office Visit Dermatology at [address] [address] Jeremiah Preston MD [facility] [place] [address] Scheduled Referrals Name Type Priority Associated Diagnoses Orde r Schedule Referral to Cardiac Rehab Outpatient Referral Routine S/P coronary artery stent placement Ordered: 04/10/2022 documented as of this encounter Visit Diagnoses Diagnosis S/P coronary artery stent placement Postsurgical percutaneous transluminal coronary angioplasty status documented in this encounter Care Teams Sintering Plant Supervisor Relationship Specialty Start Date End Date Veronica Campbell APRN [address] [place] [address] PCP - General Family Medicine 01/18/22 documented as of this encounter
--- OUTSIDE RECORDS SUMMARY | 2024-10-18 15:34 | XMS_ITS | Encounter Summary ---
[place] [address] Care Team Providers Care Undercutter Operator Name Role Phone Veronica Campbell APRN [...] DOCS Veronica Campbell APRN [address] [place] [address] [facility] [address] [place] [phone] Referral ID Status Reason Start Date Expiration Date V isits Requested Visits Authorized [id number] Closed Consult, Test & Treat PCP Updated and/or Approved 01/18/2022 01/18/2023 12 12 Encounter Details Date Type Department Care Team (Latest Contact Info) Description 01/18/2022 Transcribe Orders eDH Incoming Referrals [phone] Veronica Campbell APRN [address] [place], [place] [id number] Coronary artery disease, unspecified vessel or lesion type, unspecified whether angina present, unspecified whether [place] or transplanted heart; Other forms of dyspnea; Type 2 diabetes mellitus without complication, unspecified whether watermelon inspector insulin use Social History Tobacco Use Types [...] AM EST Office Visit Cardiology at [address] [address] Pablito Hunt MD [facility] [place] [address] 03/20/2025 3:00 PM EDT Office Visit Dermatology at [address] [place] [address] Jeremiah Preston MD [facility] DR Y[address] [place] [address] Scheduled Referrals Name Type Priority Associated Diagnoses Orde r Schedule Referral to Cardiology Outpatient Referral Routine Coronary Artery Disease, Unspecified Vessel Or Lesion Type, Unspecified Whether Angina Present, Unspecified Whether [place] Or Transplanted Heart Other Forms Of Dyspnea Type 2 Diabetes Mellitus Without Complication, Unspecified Whether [facility] Insulin Use Ordered: 01/18/2022 documented as of this encounter Visit Diagnoses Diagnosis Coronary artery disease, unspecified vessel or lesion type, unspecified whether angina present, unspecified whether [place] or transplanted heart Other forms of dyspnea Type 2 diabetes mellitus without complication, unspecified whether correction insulin use documented in this encounter Care Teams Undercutter Operator Relationship Specialty Start Date End Date Veronica Campbell APRN [address] [place] [address] PCP - General Family Medicine 01/18/22 documented as of this encounter
--- OUTSIDE RECORDS SUMMARY | 2024-10-18 15:34 | XMS_ITS | Encounter Summary ---
[place] [address] Care Team Providers Care Bilingual Teacher Assistant Name Role Phone Veronica Campbell APRN Primary Care Provider [phone] Encounter Details Date Type Department Care Team (Late st Contact Info) Description 02/26/2022 Telephone Cardiology at [address] [address] Conrad Jordan, RN Social History Tobacco Use [...] all my questions, thank you. Raza Jordan RNchute loader Team Nurse [facility] Ambulatory Cardiology * Telephone Encounter - Conrad [...] answer, routed to . Message left on [employer] messaging system. Offered to address their questions at their availability. Office hours and contact number provided. Raza Jordan RNchute loader Team Nurse [facility] Ambulatory Cardiology documented in this encounter Plan of Treatment Upcoming Encounters Date Type Department Care Team (Late st Contact Info) Description 11/09/2024 10:40 AM EST Office Visit Cardiology at [address] [address] Pablito Hunt MD [facility] [place] [address] 03/20/2025 3:00 PM EDT Office Visit Dermatology at [place] [address] [place] [address] Jeremiah Preston MD [facility] DR Y[address] [place] [address] documented as of this encounter Visit Diagnoses Not on filedocumented in this encounter Care Teams Bilingual Teacher Assistant Relationship Specialty Start Date End Date Veronica Campbell APRN [address] [place] [address] PCP - General Family Medicine 01/18/22 documented as of this encounter
--- OUTSIDE RECORDS SUMMARY | 2024-10-18 15:34 | XMS_ITS | Encounter Summary ---
Author Organization [facility] [place] [address] Care Team Providers Care Photo Checker Name Role Phone Veronica Campbell CHRISTEL Primary Care Provider [phone] Reason for Visit * Auth/Cert Specialty Diagnoses / Procedures Referred By Jason t Referred To Contact Diagnoses CAD (coronary artery disease) Post-Op monitoring Procedures PRG CATH PLMT LEFT HEART CATH & ARTS W/INJ & ANGIO IMG S&I CARDIAC CATHETERIZATION CORONARY ANGIOGRAPHY; W LHC,POSSIBLE PCI Pablito Hunt MD [facility] [place] [address] [facility] Referral ID Status Reason Start Date Expiration Date Visits Re quested Visits Authorized [id number] 1 1 Encounter Details Date Type Department Care Team (Late st Contact Info) Description 02/24/2022 12:30 PM EDT - 02/24/2022 1:30 PM EDT [place] [address] Pablito Hunt MD [facility] [place] [address] CARDIAC CATHETERIZATION Social History Tobacco Use Types [...] Conrad Vera Patient Age: 66 y.o. 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 Imaging was successful. Image quality was good. The distal LM showed severe diffuse atherosclerotic plaque. Post Intervention: The stent was well expanded and apposed. Intravascular Ultrasound was performed in the ostial RPDA using a 6 Fr AL 1 guiding catheter and a 3.5 Fr [place] 20 Mhz using Manual pullback. Imaging was [...] REMOVE Please contact the Blood Bank at [phone] for questions. ??? Amoxicillin-Pot Clavulanate CIS - [...] Administered Date(s) Administered ??? Influenza Vaccine (Novel) [id number], Injectable 07/28/2009 ??? Influenza Vaccine, Whole 07/27/2005, [...] References/Attachments CAD (Coronary Artery Disease): General Info ([place]) PCI (Percutaneous Coronary Intervention): Post-op ([place]) Chetan Hutchison MD Interventional Cardiology 02/25/22 5:24 PM [facility] Pager: [phone] documented in this encounter Discharge Instructions * [...] * CAD (Coronary Artery Disease): General Info ([place]) * PCI (Percutaneous Coronary Intervention): Post-op ([place]) documented in this encounter Medications at [...] Decision was made to intervene on the new [place] ostial LCx and mid RCA given that [...] disease) 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 Hypertension ??? Gout ??? Peptic disease [...] in an outpatient cardiac rehabilitation program at [facility] was discussed. Patient declines a referral at this time. 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 * Plan [...] 10:40 AM EST Office Visit Cardiology at [address] [address] Pablito Hunt MD [facility] [place] [address] 03/20/2025 3:00 PM EDT Office Visit Dermatology at [facility] [address] [place] [id number] Jeremiah Preston MD [facility] [place] [address] documented as of this encounter Procedures Procedure [...] & Arts W/Inj & Angio Img S&I ([id number]) 02/24/2022 12:26 PM EDT Coronary artery disease due to lipid rich plaque POCT GLUCOSE Routine 02/24/2022 12:01 PM EDT documented in this encounter Results * (ABNORMAL) POCT Glucose (02/25/2022 7:21 AM EDT) Pathologist [facility] Glucose, POC 235(H) 65 - 199 mg/dL [facility] Comment: Supplemental ranges: <140 mg/dL before meals <180 mg/dL all other times of the day Blood 02/25/2022 7:21 AM EDT 02/25/2022 7:21 AM EDT Pablito Hunt MD POINT OF CARE TEST O RDERABLES [facility] [place] [place] [address] * EKG 12 Lead (02/25/2022 6:02 AM EDT) Ventricular rate 73 BPM MUSE SYSTEM Atrial Rate 73 BPM MUSE SYSTEM P-R Interval 146 ms MUSE SYSTEM QRS Duration 96 ms MUSE SYSTEM Q-T Interval 394 ms MUSE SYSTEM QTC Calculated (Bezet) 434 ms MUSE SYSTEM Calculated P Mill[place] 22 degrees MUSE SYSTEM Calculated R Mill[place] -16 degrees MUSE SYSTEM Calculated T [place] 51 degrees MUSE SYSTEM INTERPRETATION Normal sinus rhythm Possible ??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) Poor R-wave progression Abnormal ECG When compared with ECG of 24-FEB-2022 15:39, (unconfirmed) No significant change was found I personally reviewed the tracing and edited the fellows interpretation Confirmed by fellow Senser, Thaddeus Bess ([id number]) on 02/25/2022 2:30:46 PM Confirmed by MD James, Pablito ([id number]) on 02/25/2022 3:03:12 PM MUSE SYSTEM 02/25/2022 6:02 AM EDT 02/25/2022 3:03 PM EDT Pablito Hunt MD ECG ORDERABLES Performing Organization Address City/[facility]/ZIP Co de Phone Number MUSE SYSTEM * LDL Cholesterol, Direct (02/25/2022 4:30 AM EDT) Pathologist [facility] LDL Cholesterol, Direct 28 mg/dL [facility] Comment: Lowest Risk: <100 mg/dL Lower Risk: 100-129 mg/dL Borderline High Risk: 130-159 mg/dL High Risk: 160-189 mg/dL Very High Risk: >yg=962 mg/dL Blood 02/25/2022 4:30 AM EDT 02/25/2022 4:39 AM EDT Narrative Resulting Agency Comment Spec In Lab Chetan Hutchison MD CHEMISTRY ORDERABLES Performing Organization Address City/[facility]/ZIP Co de Phone Number [facility] [place] [address] * Differential, Automated (02/25/2022 4:30 AM EDT) Pathologist [facility] Neutrophil % 68.9 % [facility] Neutrophil Absolute 5.70 1.70 - 6.10 x10(3)/[facility] Lymph % 20.2 % [facility] Lymphocytes Abs 1.7 0.9 - 3.2 x10(3)/[facility] Monocyte % 7.1 % [facility] Monocyte Abs 0.6 0.3 - 0.9 x10(3)/[facility] Eos % 2.7 % [facility] Eosinophils Abs 0.2 0.0 - 0.4 x10(3)/[facility] Basophil % 0.6 % [facility] Baso Absolute 0.0 0.0 - 0.1 x10(3)/[facility] Immature Gran % 0.50 % [facility] Comment: Immature granulocytes(IG's)percentage and absolute count will include metamyelocytes, myelocytes, and promyelocytes. Blood smears from CBCs yielding IG's will be scanned manually for concordance. If this scan disagrees with the automated IG or if promyelocytes are noted, a manual differential will be performed. Immature Gran Absolute 0.04 0.00 - 0.04 x10(3)/[facility]AT[facility] Blood 02/25/2022 4:30 AM EDT 02/25/2022 4:39 AM EDT Narrative Resulting Agency Comment Spec In Lab Cehtan Hutchison MD HEMATOLOGY ORDERABLE S [facility] [place] [address] * (ABNORMAL) Hemogram (02/25/2022 4:30 AM EDT) White Blood Cell 8.3 4.0 - 9.5 x10(3)/mc L [facility] Red Blood Cell 3.88(L) 4.58 - 5.54 x10(6)/mc L [facility] Hemoglobin 12.3(L) 13.7 - 16.5 g/dL [facility] Hematocrit 35.0(L) 40.5 - 48.5 % [facility] Mean Cell Volume 90.2 82.9 - 93.1 fL [facility] Mean Cell Hemoglobin 31.7 27.5 - 32.1 pg [facility] Mean Cell Hemoglobin Concentration 35.1 32.0 - 35.7 g/dL [facility] Platelet 107(L) 145 - 357 x10(3)/ L [facility] RDW Standard Deviation 43.2 36.0 - 45.0 fL [facility] RDW coefficient of variation 13.3 11.4 - 13.8 % [facility] Mean Platelet Volume 11.1 7.6 - 12.9 fL [facility] NRBC% auto 0.0 % [facility] NRBC Absolute 0.000 0.000 - 0.000 x10(3)/mc L [facility] Blood 02/25/2022 4:30 AM EDT 02/25/2022 4:39 AM EDT Narrative Resulting Agency Comment Spec In Lab Chetan Hutchison MD HEMATOLOGY ORDERABLE S [facility] [place] [address] * Lipid Panel (Reflex Direct LDL) (02/25/2022 4:30 AM EDT) Cholesterol, Total 100 mg/dL [facility] Comment: Lower Risk: <200 mg/dL Average Risk: 200-239 mg/dL Higher Risk: >ow=651 mg/dL Triglyceride 420 mg/dL [facility] Comment: Average Risk/Lower Risk: <150 mg/dL Borderline High Risk: 150-199 mg/dL High Risk: 200-499 mg/dL Very High Risk: >cm=784 mg/dL HDL Cholesterol 20 mg/dL [facility] Comment: Males: ?? Higher Risk: <40 mg/dL Females: ?? Higher Risk: <50 mg/dL LDL Cholesterol Not Calculated [facility] Comment: Lowest Risk: <100 mg/dL Lower Risk: 100-129 mg/dL Borderline High Risk: 130-159 mg/dL High Risk: 160-189 mg/dL Very High Risk: >km=173 mg/dL Cholesterol/HDL Ratio 5.0 ratio [facility] Lipid Interpretation See Note [facility] Comment: Lipid management should be guided by a patient? s ASCVD risk, goals and preferences. ACC/AHA Guidelines recommend high intensity statin if clinical ASCVD or LDL greater than or equal to 190 mg/dL. http://Sonos.com/JHA-IEO-Cjdvrtprl Adults aged 40-75 with LDL 70-189 mg/dL should have their 10 year ASCVD risk estimated with the ACC/AHA ASCVD risk social sciences lecturer http://tools.acc.org/DAYVD-Vihy-Askflukjq/ Statin should be discussed if risk greater [...] In Lab Pablito Hunt MD CHEMISTRY ORDERABLES [facility] [place] [address] * (ABNORMAL) BMP w/fasting Glucose (02/25/2022 4:30 AM EDT) Glucose Fasting 200(H) 65 - 99 mg/dL [facility] Comment: ?Fasting* Glucose Interpretive Criteria [...] of Diabetes Mellitus, Position Statement from the [place] [employer]. ??Diabetes Care, Volume 33, Supplement 1, Sep 2009 Blood Urea Nitrogen 14 10 - 20 mg/dL [facility] Creatinine 1.12 0.80 - 1.50 mg/dL [facility] Sodium 135 135 - 145 mmol/L [facility] Potassium 4.1 3.5 - 5.0 mmol/L [facility] Comment: Please note: ??Patients with WBC >100,000 may have falsely elevated Potassium levels. ??For accurate Potassium quantification in these patients send serum separator tube (gold top) for subsequent determinations. ??Contact the Clinical Chemistry Laboratory if there are any questions. Chloride 102 98 - 107 mmol/L [facility] Carbon Dioxide 22 22 - 31 mmol/L [facility] Anion Gap 11 5 - 15 mmol/L [facility] Calcium 9.3 8.5 - 10.5 mg/dL [facility] Est Glomerular Filtration Rate 67 >=60 mL/min/1. 73 m?? [facility] Comment: This patient? s estimated [...] In Lab Pablito Hunt MD CHEMISTRY ORDERABLES [facility] [place] [address] * (ABNORMAL) POCT Glucose (02/24/2022 11:39 PM EDT) Glucose, POC 208(H) 65 - 199 mg/dL [facility] Comment: Supplemental ranges: <140 mg/dL before meals <180 mg/dL all other times of the day Blood 02/24/2022 11:3 9 PM EDT 02/24/2022 11:39 PM EDT Pablito Hunt MD POINT OF CARE TEST O LEIF Performing Organization Address [facility]/ZIP Co de Phone Number [facility] [place] [address] * (ABNORMAL) POCT Glucose (02/24/2022 8:51 PM EDT) Glucose, POC 287(H) 65 - 199 mg/dL [facility] Comment: Supplemental ranges: <140 mg/dL before meals <180 mg/dL all other times of the day Blood 02/24/2022 8:51 PM EDT 02/24/2022 8:51 PM EDT Pablito Hunt MD POINT OF CARE TEST O LEIF Performing Organization Address [facility] Co de Phone Number [facility] [place] [address] * POCT Glucose (02/24/2022 6:40 PM EDT) Glucose, POC 111 65 - 199 mg/dL [facility] Comment: Supplemental ranges: <140 mg/dL before meals <180 mg/dL all other times of the day Blood 02/24/2022 6:40 PM EDT 02/24/2022 6:40 PM EDT Pablito Hunt MD POINT OF CARE TEST O LEIF Performing Organization Address [facility] Co de Phone Number [facility] [place] [address] * COVID-19 PCR (02/24/2022 4:54 PM EDT) SARS-CoV-2 RNA Not Detected Not Detected [facility] Comment: This result should be [...] diagnosis of COVID-19 is performed using the imo.im m SARS-CoV-2 Assay as authorized by the FDA Emergency Use Authorization (EUA). This EUA assay is intended for In-vitro Diagnostic (IVD) use with respiratory specimens such as nasopharyngeal swabs collected from individuals during the acute phase of infection. This assay is performed based on the instructions for use provided by [facility] and additional guidance provided by CDC and FDA. Testing is performed in the Clinical Genomics and [facility] Technology Laboratory within the Department of Pathology and Laboratory Medicine at [facility], certified under the Clinical Laboratory Improvement [...] fact sheets at the following FDA website: https://www.fda.gov/medical-devices/hpgxnlukjih-zwspepz-2327-urlhc-03-idocbgzna- use-a njopaofiugvzv-pboxjsi-jkrekem/marfe-jfqfqqebcty-uypn SARS-CoV-2 RNA Source [employer] Swab [facility] Nasopharyngeal Swab 02/25/20 4:54 PM EDT 02/24/2022 9:01 PM EDT Comment:Symptoms->Asymptomat ic Narrative Resulting Agency Comment Spec In Lab Pablito Hunt MD MOLECULAR ORDERABLES Performing Organization Address [facility] Co de Phone Number [facility] [place] [address] * EKG 12 Lead (02/24/2022 3:39 PM EDT) Ventricular rate 69 BPM MUSE SYSTEM Atrial Rate 69 BPM MUSE SYSTEM P-R Interval 152 ms MUSE SYSTEM QRS Duration 96 ms MUSE SYSTEM Q-T Interval 386 ms MUSE SYSTEM QTC Calculated (Bezet) 413 ms MUSE SYSTEM Calculated P [place] 18 degrees MUSE SYSTEM Calculated R [place] -10 degrees MUSE SYSTEM Calculated T [place] 43 degrees MUSE SYSTEM INTERPRETATION Normal sinus rhythm 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) Possible Anterior infarct (cited on or before 29-JAN-2022) Abnormal ECG When compared with ECG of 29-JAN-2022 12:52, Premature ventricular complexes are no longer Present Confirmed by MD James, Pablito ([id number]) on 02/25/2022 8:11:22 AM MUSE SYSTEM 02/24/2022 3:39 PM EDT 02/25/2022 8:11 AM EDT Pablito Hunt MD ECG ORDERABLES Performing Organization Address [facility] Co de Phone Number MUSE SYSTEM * CARDIAC CATHETERIZATION (02/24/2022 3:08 PM EDT) Anatomical Region Laterality Modality Other Narrative 02/24/2022 6:14 PM EDT ?[facility] ? Cardiac Catheterization/Intervention Report ? Patient Name: Conrad Vera. ? Procedure Date: 02/24/2022 ? A #: [id number] ? Primary Physician: Pablito Hunt ? Case #: [id number] ? File Name: [id number] ? Catheterization Order Number: [id number] ? [facility] ? Final Report [place], [place] ? Patient Name: ? Conrad WillisBrandon Vera ? ID#: ?[id number] ? : ?1955 ? Procedure Date: ? February 24, 2022 ? Case #: ? [id number] ? Room: ? 6 ? Case Physician: [...] was ?designated as ASA Class III. The [facility] clinical frailty scale is 5: Mildly [...] procedure was Elective. The indication for ?the slab polisher visit is worsening angina. Chest pain symptom [...] ?3.5 guiding catheter and a 3.5 Fr [place] [address] ??20 Mhz using ?auto 1 mm/sec pullback. ??Imaging was successful. ??Image quality was good. ? The distal LM showed severe diffuse atherosclerotic plaque. ?Post Intervention: The stent was well expanded and apposed. ?Intravascular Ultrasound was performed in the ostial RPDA using a 6 Fr AL ?1 guiding catheter and a 3.5 Fr [place] 20 Mhz using Manual ?pullback. ??Imaging was [...] may require ?modification of this regimen. Consult [facility] Interventional Cardiology for ?questions. ?The 1 year [...] Glucose, POC 178 65 - 199 mg/dL [facility] Comment: Supplemental ranges: <140 mg/dL before meals <180 mg/dL all other times of the day Blood 02/24/2022 2:58 PM EDT 02/24/2022 2:58 PM EDT Pablito Hunt MD POINT OF CARE TEST O RDERABLES Performing Organization Address [facility] Co de Phone Number [facility] [place] [address] * (ABNORMAL) POCT Glucose (02/24/2022 12:01 PM EDT) Glucose, POC 213(H) 65 - 199 mg/dL [facility] Comment: Supplemental ranges: <140 mg/dL before meals <180 mg/dL all other times of the day Blood 02/24/2022 12:0 1 PM EDT 02/24/2022 12:01 PM EDT Pablito Hunt MD POINT OF CARE TEST O RDERASANDRA Performing Organization Address [facility] Co de Phone Number [facility] [place] [address] documented in this encounter Visit Diagnoses Diagnosis Coronary artery disease due to lipid rich plaque Encounter for preprocedure screening laboratory testing for COVID-19 CAD (coronary artery disease) Coronary atherosclerosis of unspecified type of vessel, new [place] or graft Coronary artery disease due to lipid rich plaque documented in this encounter Admitting Diagnoses Diagnosis CAD (coronary artery disease) Coronary atherosclerosis of unspecified type of vessel, new [place] or graft documented in this encounter Administered [...] Caden Lundberg, ROSENDO)1315 (Given - Provider: Caden Lundberg RN)1325 (Given - Provider: Rissa Stevenson RN)1325 (Given [...] Routine 1238 (Given - Provider: Caden Lundberg RN) Linked Groups Order Group 1: POCT Fingerstick [...] Routine documented in this encounter Care Teams Photo Checker Relationship Specialty Start Date End Date Veronica Campbell APRN [address] [place] [address] PCP - General Family Medicine 01/18/22 documented as of this encounter
--- OUTSIDE RECORDS SUMMARY | 2024-10-18 15:34 | XMS_ITS | Encounter Summary ---
[place] [address] Care Team Providers Care Web Marketing Coordinator Name Role Phone Veronica Campbell APRN Primary Care Provider [phone] Encounter Details Date Type Department Care Team (Late st Contact Info) Description 02/06/2022 Telephone [place] [phone] Mabel Mukherjee Social History Tobacco Use Types [...] to postpone his cardiac cath on WednesdayFebruary 09e to unavailability of contrast...which is needed for procedure. Natalia documented in this encounter Plan of Treatment Upcoming Encounters Date Type Department Care Team (Late st Contact Info) Description 11/09/2024 10:40 AM EST Office Visit Cardiology at [address] [address] Pablito Hunt MD [facility] [place] [address] 03/20/2025 3:00 PM EDT Office Visit Dermatology at [facility] [address] [place] [address] Jeremiah Preston MD [facility] [address] [facility] [place] [address] documented as of this encounter Visit Diagnoses Not on filedocumented in this encounter Care Teams Web Marketing Coordinator Relationship Specialty Start Date End Date Veronica Campbell APRN [address] [place] [address] PCP - General Family Medicine 01/18/22 documented as of this encounter
--- OUTSIDE RECORDS SUMMARY | 2024-10-18 15:34 | XMS_ITS | Encounter Summary ---
Author Organization [facility] [place] [address] Care Team Providers Care Production Control Manager Name Role Phone Adrian Veronica KEARNEY Primary Care Provider [phone] Encounter Details Date Type Department Care Team (Late Contact Info) Description 08/03/2022 [place] [address] Kolton Yang RN Social History Tobacco Use [...] us to send the script to [facility] in [facility] and see if they can get it through them. Script pended to provider and message sent to patient. documented in this encounter Plan of Treatment Upcoming Encounters Date Type Department Care Team (Late st Contact Info) Description 11/09/2024 10:40 AM EST Office Visit Cardiology at [address] [address] Pablito Hunt MD [facility] [place] [address] 03/20/2025 3:00 PM EDT Office Visit Dermat[facility] at [facility] [address] [place] [address] Jeremiah Preston MD [facility] [place] [address] documented as of this encounter Visit Diagnoses Not on filedocumented in this encounter Care Teams Production Control Manager Relationship Specialty Start Date End Date Veronica Campbell APRN [address] [place] [address] PCP - General Family Medicine 01/18/22 documented as of this encounter
--- OUTSIDE RECORDS SUMMARY | 2024-10-18 15:34 | XMS_ITS | Encounter Summary ---
[place] [address] Care Team Providers Care Linux System Admin Name Role Phone Veronica Campbell APRN Primary Care Provider [phone] Reason for Visit * Consultation (Routine) - Closed Specialty Diagnoses / Procedures Referred By Jason garcia Referred To Contact Endocrinology Diagnoses Type 2 diabetes mellitus without complication, unspecified whether correction insulin use Veronica Campbell APRN [address] [place] [address] [facility] [address] [place] [phone] Referral ID Status Reason Start Date Expiration Date V isits Requested Visits Authorized [id number] Closed Consult, Test & Treat PCP Updated and/or Approved 05/08/2022 05/08/2023 6 6 Encounter Details Date Type Department Care Team (Latest Contact Info) Description 07/29/2022 10:00 AM EDT TH Visit (TeleHealth) [place] [address] Benji Stringer DO Type 2 diabetes mellitus with retinopathy, without [...] toast (wheat bread) and peanut butter. Coffee. [employer] Lunch- skips Supper- nachos, corn chips, [...] (04/09/22) last lipid panel: 28 (02/25/22) regular city wellness coordinator: no special shoes: no ACEi/ARB: yes ASA: yes Statin: yes ROS: 12 Point ROS negative except for what has been documented above Allergy: Allergies Allergen Reactions ??? Red Blood Cells Antibodies-Difficult to Crossmatch DO NOT REMOVE Please contact the Blood Bank at [phone] for questions. ??? Amoxicillin-Pot Clavulanate CIS - [...] patient. Patsy Stringer PGY4, Endocrinology Fellow Pager: [phone] * Sana Hankins MD - 07/29/2022 10:00 AM EDT Patient seen and evaluated by me and Dr. Stringer. I agree with his above assessment and plan. Sana Hankins MD Professor of Endocrinology documented in this encounter Plan of Treatment Upcoming Encounters Date Type Department Care Team (Late st Contact Info) Description 11/09/2024 10:40 AM EST Office Visit Cardiology at [address] [phone] Pablito Hunt MD [facility] [place] [address] 03/20/2025 3:00 PM EDT Office Visit Dermatology at [facility] [address] [place] [address] Jeremiah Preston MD [facility] [place] [address] documented as of this encounter Visit Diagnoses Diagnosis Type 2 diabetes mellitus with retinopathy, without long-term current use of insulin, macular edema presence unspecified, unspecified laterality, unspecified retinopathy severity documented in this encounter Care Teams Linux System Admin Relationship Specialty Start Date End Date Veronica Campbell APRN [address] [place] [address] PCP - General Family Medicine 01/18/22 documented as of this encounter
--- OUTSIDE RECORDS SUMMARY | 2024-10-18 15:34 | XMS_ITS | Encounter Summary ---
[place] [address] Care Team Providers Care Manager Of Financial Reporting Name Role Phone Veronica Campbell APRN Primary Care Provider [phone] Reason for Visit * Reason Onset Date Comments Medication Refill 02/25/2022 Encounter Details Date Type Department Care Team (Late st Contact Info) Description 02/25/2022 Refill Cardiology at [address] [phone] Nicolle Campos, chip applying machine tender Refill Social History Tobacco Use Types Packs/Day [...] to go to mail order Pharmacy called Replaced By [facility]. She requests a call to discuss Chart [...] 10:40 AM EST Office Visit Cardiology at [address] [phone] Pablito Hunt MD [facility] [place] [address] 03/20/2025 3:00 PM EDT Office Visit Dermatology at [facility] [address] [place] [address] Jeremiah Preston MD [facility] DR Y[address] [place] [address] documented as of this encounter Visit Diagnoses Not on filedocumented in this encounter Care Teams Manager Of Financial Reporting Relationship Specialty Start Date End Date Veronica Campbell APRN [address] [place] [address] PCP - General Family Medicine 01/18/22 documented as of this encounter
--- OUTSIDE RECORDS SUMMARY | 2024-10-18 15:34 | XMS_ITS | Encounter Summary ---
Author Organization [facility] [place] [address] Care Team Providers Care Lockstitch Sleeve Maker Name Role Phone Adrian Veronica CHRISTEL Primary Care Provider [phone] Encounter Details Date Type Department Care Team (Late st Contact Info) Description 04/22/2022 Telephone Cardiology at [address] [address] Rush-Kelly Hermosillo, RN Social History Tobacco Use [...] pt might be able to take an Chloe 3 acid ethyl mena generic form of Lavaza for much cheaper and the pt's is wondering if that would be a comparable solution to the Vascepa? Spoke with [facility] pharmacy [facility] who states that the pt's insurance is not contracted with [facility] and therefore the prescription can not be covered at [facility] but only through [facility]. She did apologize that a call was not made to the pt from the pharmacy about thisinformation. The generic form of Lavaza was still going to cost around $200 again because of non contractual insurance. [facility] did state that if the pt's wished to call them back and have the original prescription transferred to [facility] they would be happy to do this for the pt. Will forward this message to Dr. Hunt for his consideration and response and pt and will be contacted back with a response. documented in this encounter Plan of Treatment Upcoming Encounters Date Type Department Care Team (Late st Contact Info) Description 11/09/2024 10:40 AM EST Office Visit Cardiology at [address] [phone] Pablito Hunt MD [facility] [place] [address] 03/20/2025 3:00 PM EDT Office Visit Dermatology at [place] [address] [place] [address] Jeremiah Preston MD [facility] DR [facility] [place] [address] documented as of this encounter Visit Diagnoses Not on filedocumented in this encounter Care Teams Lockstitch Sleeve Maker Relationship Specialty Start Date End Date Veronica Campbell APRN [address] [place] [address] PCP - General Family Medicine 01/18/22 documented as of this encounter
--- OUTSIDE RECORDS SUMMARY | 2024-10-18 15:34 | XMS_ITS | Encounter Summary ---
Author Organization Formerly [facility] [place] [address] Care Team Providers Care Comfort Filler Name Role Phone Veronica Campbell CHRISTEL Primary Care Provider [phone] Reason for Visit * Auth/Cert Specialty Diagnoses / Procedures Referred By Jason t Referred To Contact Diagnoses CAD (coronary artery disease) Post-Op monitoring Procedures PRG CATH PLMT LEFT HEART CATH & ARTS W/INJ & ANGIO IMG S&I CARDIAC CATHETERIZATION CORONARY ANGIOGRAPHY; W LHC,POSSIBLE PCI Pablito Hunt MD [facility] [place] [address] [facility] Referral ID Status Reason Start Date Expiration Date Visits Re quested Visits Authorized [id number] 1 1 Encounter Details Date Type Department Care Team (Latest Contact Info) Description 02/24/2022 11:26 AM EDT - 02/25/2022 10:15 AM EDT Hospital Encounter Intermediate [place] [address] Pablito Hunt MD [facility] [place] [address] Coronary artery disease due to lipid rich [...] Conrad Vera Patient Age: 66 y.o. 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 Imaging was successful. Image quality was good. The distal LM showed severe diffuse atherosclerotic plaque. Post Intervention: The stent was well expanded and apposed. Intravascular Ultrasound was performed in the ostial RPDA using a 6 Fr AL 1 guiding catheter and a 3.5 Fr [facility] [place] 20 Mhz using Manual pullback. Imaging was [...] REMOVE Please contact the Blood Bank at [phone] for questions. ??? Amoxicillin-Pot Clavulanate CIS - [...] Administered Date(s) Administered ??? Influenza Vaccine (Novel) [id number], Injectable 07/28/2009 ??? Influenza Vaccine, Whole 07/27/2005, [...] References/Attachments CAD (Coronary Artery Disease): General Info (Cuban) PCI (Percutaneous Coronary Intervention): Post-op (Cuban) Chetan Hutchison MD Interventional Cardiology 02/25/22 5:24 PM [facility] Pager: [phone] documented in this encounter Discharge Instructions * [...] * CAD (Coronary Artery Disease): General Info (Cuban) * PCI (Percutaneous Coronary Intervention): Post-op (Cuban) documented in this encounter Medications at Time [...] Decision was made to intervene on the bishop paiute ostial LCx and mid RCA given that [...] disease) 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 Hypertension ??? [...] in an outpatient cardiac rehabilitation program at [facility] was discussed. Patient declines a referral at this time. Enc him to contact his power mule operator should he change his mind. * Plan [...] 10:40 AM EST Office Visit Cardiology at [address] [place] [address] Pablito Hunt MD [facility] CARDIOLOGY [place] [address] 03/20/2025 3:00 PM EDT Office Visit Dermatology at [facility] [address] [place] [address] Jeremiah Preston MD [facility] [place] [address] documented as of this encounter Procedures Procedure [...] & Arts W/Inj & Angio Img S&I ([id number]) 02/24/2022 12:26 PM EDT Coronary artery disease due to lipid rich plaque POCT GLUCOSE Routine 02/24/2022 12:01 PM EDT documented in this encounter Results * (ABNORMAL) POCT Glucose (02/25/2022 7:21 AM EDT) [facility] Glucose, POC 235(H) 65 - 199 mg/dL [facility] Comment: Supplemental ranges: <140 mg/dL before meals <180 mg/dL all other times of the day Blood 02/25/2022 7:21 AM EDT 02/25/2022 7:21 AM EDT Pablito Hunt MD POINT OF CARE TEST O RDERABLES [facility] [place] [address] * EKG 12 Lead (02/25/2022 6:02 AM EDT) Ventricular rate 73 BPM MUSE SYSTEM Atrial Rate 73 BPM MUSE SYSTEM P-R Interval 146 ms MUSE SYSTEM QRS Duration 96 ms MUSE SYSTEM Q-T Interval 394 ms MUSE SYSTEM QTC Calculated (Bezet) 434 ms MUSE SYSTEM Calculated P [place] 22 degrees MUSE SYSTEM Calculated R [place] -16 degrees MUSE SYSTEM Calculated T [place] 51 degrees MUSE SYSTEM INTERPRETATION Normal sinus rhythm Possible ??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) Poor R-wave progression Abnormal ECG When compared with ECG of 24-FEB-2022 15:39, (unconfirmed) No significant change was found I personally reviewed the tracing and edited the fellows interpretation Confirmed by fellow Senser, Thaddeus Bess ([id number]) on 02/25/2022 2:30:46 PM Confirmed by MD James, Pablito ([id number]) on 02/25/2022 3:03:12 PM MUSE SYSTEM 02/25/2022 6:02 AM EDT 02/25/2022 3:03 PM EDT Pablito Hunt MD ECG ORDERABLES Performing Organization Address City/[facility]/ZIP Co de Phone Number MUSE SYSTEM * LDL Cholesterol, Direct (02/25/2022 4:30 AM EDT) LDL Cholesterol, Direct 28 mg/dL [facility] Comment: Lowest Risk: <100 mg/dL Lower Risk: 100-129 mg/dL Borderline High Risk: 130-159 mg/dL High Risk: 160-189 mg/dL Very High Risk: >uy=560 mg/dL Blood 02/25/2022 4:30 AM EDT 02/25/2022 4:39 AM EDT Narrative Resulting Agency Comment Spec In Lab Chetan Hutchison MD CHEMISTRY ORDERABLES [facility] [place] [address] * Differential, Automated (02/25/2022 4:30 AM EDT) Neutrophil % 68.9 % [facility] Neutrophil Absolute 5.70 1.70 - 6.10 x10(3)/[facility] Lymph % 20.2 % [facility] Lymphocytes Abs 1.7 0.9 - 3.2 x10(3)/[facility] Monocyte % 7.1 % [facility] Monocyte Abs 0.6 0.3 - 0.9 x10(3)/[facility] Eos % 2.7 % [facility] Eosinophils Abs 0.2 0.0 - 0.4 x10(3)/[facility] Basophil % 0.6 % [facility] Baso Absolute 0.0 0.0 - 0.1 x10(3)/[facility] Immature Gran % 0.50 % [facility] Comment: Immature granulocytes(IG's)percentage and absolute count will include metamyelocytes, myelocytes, and promyelocytes. Blood smears from CBCs yielding IG's will be scanned manually for concordance. If this scan disagrees with the automated IG or if promyelocytes are noted, a manual differential will be performed. Immature Gran Absolute 0.04 0.00 - 0.04 x10(3)/[facility] Blood 02/25/2022 4:30 AM EDT 02/25/2022 4:39 AM EDT Narrative Resulting Agency Comment Spec In Lab Chetan Hutchison MD HEMATOLOGY ORDERABLE S [facility] [place] [address] * (ABNORMAL) Hemogram (02/25/2022 4:30 AM EDT) White Blood Cell 8.3 4.0 - 9.5 x10(3)/mc L [facility] Red Blood Cell 3.88(L) 4.58 - 5.54 x10(6)/mc L [facility] Hemoglobin 12.3(L) 13.7 - 16.5 g/dL [facility] Hematocrit 35.0(L) 40.5 - 48.5 % [facility] Mean Cell Volume 90.2 82.9 - 93.1 fL [facility] Mean Cell Hemoglobin 31.7 27.5 - 32.1 pg [facility] Mean Cell Hemoglobin Concentration 35.1 32.0 - 35.7 g/dL [facility] Platelet 107(L) 145 - 357 x10(3)/mc L [facility] RDW Standard Deviation 43.2 36.0 - 45.0 fL [facility] RDW coefficient of variation 13.3 11.4 - 13.8 % [facility] Mean Platelet Volume 11.1 7.6 - 12.9 fL [facility] NRBC% auto 0.0 % [facility] NRBC Absolute 0.000 0.000 - 0.000 x10(3)/mc L [facility] Blood 02/25/2022 4:30 AM EDT 02/25/2022 4:39 AM EDT Narrative Resulting Agency Comment Spec In Lab Chetan Hutchison MD HEMATOLOGY ORDERABLE S Performing Organization Address City/State/[facility] Co de Phone Number [facility] [place] [address] * Lipid Panel (Reflex Direct LDL) (02/25/2022 4:30 AM EDT) Cholesterol, Total 100 mg/dL [facility] Comment: Lower Risk: <200 mg/dL Average Risk: 200-239 mg/dL Higher Risk: >ve=116 mg/dL Triglyceride 420 mg/dL [facility] Comment: Average Risk/Lower Risk: <150 mg/dL Borderline High Risk: 150-199 mg/dL High Risk: 200-499 mg/dL Very High Risk: >sm=059 mg/dL HDL Cholesterol 20 mg/dL [facility] Comment: Males: ?? Higher Risk: <40 mg/dL Females: ?? Higher Risk: <50 mg/dL LDL Cholesterol Not Calculated [facility] Comment: Lowest Risk: <100 mg/dL Lower Risk: 100-129 mg/dL Borderline High Risk: 130-159 mg/dL High Risk: 160-189 mg/dL Very High Risk: >mv=041 mg/dL Cholesterol/HDL Ratio 5.0 ratio [facility] Lipid Interpretation See Note [facility] Comment: Lipid management should be guided by a patient? s ASCVD risk, goals and preferences. ACC/AHA Guidelines recommend high intensity statin if clinical ASCVD or LDL greater than or equal to 190 mg/dL. http://Endomondo.com/DNS-PAF-Bybgevrkm Adults aged 40-75 with LDL 70-189 mg/dL should have their 10 year ASCVD risk estimated with the ACC/AHA ASCVD risk box estimator http://tools.acc.org/GDQTE-Bhxm-Galltilvp/ Statin should be discussed if risk greater [...] Hunt MD CHEMISTRY ORDERABLES Performing Organization Address City/State/[facility] Co de Phone Number [facility] [place] [address] * (ABNORMAL) BMP w/fasting Glucose (02/25/2022 4:30 AM EDT) Glucose Fasting 200(H) 65 - 99 mg/dL [facility] Comment: ?Fasting* Glucose Interpretive Criteria [...] of Diabetes Mellitus, Position Statement from the [place] [employer]. ??Diabetes Care, Volume 33, Supplement 1, Sep 2009 Blood Urea Nitrogen 14 10 - 20 mg/dL [facility] Creatinine 1.12 0.80 - 1.50 mg/dL [facility] Sodium 135 135 - 145 mmol/L [facility] Potassium 4.1 3.5 - 5.0 mmol/L [facility] Comment: Please note: ??Patients with WBC >100,000 may have falsely elevated Potassium levels. ??For accurate Potassium quantification in these patients send serum separator tube (gold top) for subsequent determinations. ??Contact the Clinical Chemistry Laboratory if there are any questions. Chloride 102 98 - 107 mmol/L [facility] Carbon Dioxide 22 22 - 31 mmol/L [facility] Anion Gap 11 5 - 15 mmol/L [facility] Calcium 9.3 8.5 - 10.5 mg/dL [facility] Est Glomerular Filtration Rate 67 >=60 mL/min/1. 73 m?? [facility] Comment: This patient? s estimated [...] In Lab Pablito Hunt MD CHEMISTRY ORDERABLES [facility] [place] [address] * (ABNORMAL) POCT Glucose (02/24/2022 11:39 PM EDT) Glucose, POC 208(H) 65 - 199 mg/dL [facility] Comment: Supplemental ranges: <140 mg/dL before meals <180 mg/dL all other times of the day Blood 02/24/2022 11:3 9 PM EDT 02/24/2022 11:39 PM EDT Pablito Hunt MD POINT OF CARE TEST O CHARLEYERASANDRA [facility] [place] [address] * (ABNORMAL) POCT Glucose (02/24/2022 8:51 PM EDT) Glucose, POC 287(H) 65 - 199 mg/dL [facility] Comment: Supplemental ranges: <140 mg/dL before meals <180 mg/dL all other times of the day Blood 02/24/2022 8:51 PM EDT 02/24/2022 8:51 PM EDT Pablito Hunt MD POINT OF CARE TEST O RDERASANDRA [facility] [place] [address] * POCT Glucose (02/24/2022 6:40 PM EDT) Glucose, POC 111 65 - 199 mg/dL [facility] Comment: Supplemental ranges: <140 mg/dL before meals <180 mg/dL all other times of the day Blood 02/24/2022 6:40 PM EDT 02/24/2022 6:40 PM EDT Pablito Hunt MD POINT OF CARE TEST O RDERASANDRA [facility] [place] [address] * COVID-19 PCR (02/24/2022 4:54 PM EDT) SARS-CoV-2 RNA Not Detected Not Detected [facility] Comment: This result should be [...] diagnosis of COVID-19 is performed using the Alert[employer] m SARS-CoV-2 Assay as authorized by the FDA Emergency Use Authorization (EUA). This EUA assay is intended for In-vitro Diagnostic (IVD) use with respiratory specimens such as nasopharyngeal swabs collected from individuals during the acute phase of infection. This assay is performed based on the instructions for use provided by [employer] and additional guidance provided by CDC and FDA. Testing is performed in the Clinical Genomics [facility] Laboratory within the Department of Pathology and Laboratory Medicine at [facility], certified under the Clinical Laboratory Improvement Amendments [...] fact sheets at the following FDA website: https://www.fda.gov/medical-devices/uokmljuipoq-dpxmrvh-3931-bksmm-06-bnfrgfldi- use-a myeyhfmwiqilp-fltdzii-zhaofjp/ptxuk-fbrzofkwnln-buzz SARS-CoV-2 RNA Source SLAB WORKER Swab [facility] Nasopharyngeal Swab 02/25/20 4:54 PM EDT 02/24/2022 9:01 PM EDT Comment:Symptoms->Asymptomat ic Narrative Resulting Agency Comment Spec In Lab Pablito Hunt MD MOLECULAR ORDERABLES [facility] [place] [address] * EKG 12 Lead (02/24/2022 3:39 PM EDT) Ventricular rate 69 BPM MUSE SYSTEM Atrial Rate 69 BPM MUSE SYSTEM P-R Interval 152 ms MUSE SYSTEM QRS Duration 96 ms MUSE SYSTEM Q-T Interval 386 ms MUSE SYSTEM QTC Calculated (Bezet) 413 ms MUSE SYSTEM Calculated P [place] 18 degrees MUSE SYSTEM Calculated R [place] -10 degrees MUSE SYSTEM Calculated T [place] 43 degrees MUSE SYSTEM INTERPRETATION Normal sinus [...] Modality Other Narrative 02/24/2022 6:14 PM EDT [facility] ? Cardiac [facility]Intervention Report ? Patient Name: Chuy Conrad Willis. ? Procedure Date: 02/24/2022 ? A #: [id number] ? Primary Physician: Pablito Hunt ? Case #: [id number] ? File Name: [id number] ? Catheterization Order Number: [id number] ? [facility] ? Final Report [place], [place] ? Patient Name: ? Conrad Vera ? ID#: ?[id number] ? : ?1955 ? Procedure Date: ? [...] was ?designated as ASA Class III. The [facility] clinical frailty scale is 5: Mildly ?Frail. [...] procedure was Elective. 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 Chest pain symptom [...] ?3.5 guiding catheter and a 3.[address] [facility] [address] ??20 Mhz using ?auto 1 mm/sec pullback. ??Imaging was successful. ??Image quality was good. ? The distal LM showed severe diffuse atherosclerotic plaque. ?Post Intervention: The stent was well expanded and apposed. ?Intravascular Ultrasound was performed in the ostial RPDA using a 6 Fr AL ?1 guiding catheter and a 3.5 Fr [facility] [place] 20 Mhz using Manual ?pullback. ??Imaging was [...] may require ?modification of this regimen. Consult [facility] Interventional Cardiology for [...] Hunt M.D. ? Electronically Signed by: Pablito S Gilbert, M.D. ? Report Finalized: 02/24/2022 ??18:09 ? Pablito Hunt MD CARDIAC CATH ORDERAB LES * POCT Glucose (02/24/2022 2:58 PM EDT) Glucose, POC 178 65 - 199 mg/dL [facility] Comment: Supplemental ranges: <140 mg/dL before meals <180 mg/dL all other times of the day Blood 02/24/2022 2:58 PM EDT 02/24/2022 2:58 PM EDT Pablito Hunt MD POINT OF CARE TEST O RDERASANDRA Performing Organization Address [facility] de Phone Number [facility] [place] [address] * (ABNORMAL) POCT Glucose (02/24/2022 12:01 PM EDT) Glucose, POC 213(H) 65 - 199 mg/dL [facility] Comment: Supplemental ranges: <140 mg/dL before meals <180 mg/dL all other times of the day Blood 02/24/2022 12:0 1 PM EDT 02/24/2022 12:01 PM EDT Pablito Hunt MD POINT OF CARE TEST O RDERASANDRA Performing Organization Address [facility] de Phone Number [facility] [place] [address] documented in this encounter Visit Diagnoses Diagnosis Coronary artery disease due to lipid rich plaque Encounter for preprocedure screening laboratory testing for COVID-19 CAD (coronary artery disease) Coronary atherosclerosis of unspecified type of vessel, bishop paiute or graft Coronary artery disease due to lipid rich plaque documented in this encounter Admitting Diagnoses Diagnosis CAD (coronary artery disease) Coronary atherosclerosis of unspecified type of vessel, bishop paiute or graft documented in this encounter Administered [...] Routine documented in this encounter Care Teams Comfort Filler Relationship Specialty Start Date End Date Veronica Campbell APRN [address] [place] [address] PCP - General Family Medicine 01/18/22 documented as of this encounter
--- OUTSIDE RECORDS SUMMARY | 2024-10-18 15:34 | XMS_ITS | Encounter Summary ---
Author Organization [facility] Address [facility] [place] [address] Care Team Providers Care Warp Spinner Name Role Phone Veronica Campbell CHRISTEL Primary Care Provider [phone] Encounter Details Date Type Department Care Team (Latest Contact Info) Description 04/09/2022 2:13 PM EDT - 04/09/2022 11:59 PM EDT Hospital Encounter XRay at [address] [place] [address] Pablito Hunt MD [facility] [place] [address] SOB (shortness of breath) Discharge Disposition: Home [...] AM EST Office Visit Cardiology at [address] [address] Pablito Hunt MD [facility] [place] [address] 03/20/2025 3:00 PM EDT Office Visit Dermatology at [address] [address] Jeremiah Preston MD [facility] DR [place] [address] documented as of this encounter Procedures Procedure [...] who have questions please contact the health administrator health care facility that requested your imaging first. ? Narrative 04/09/2022 3:28 PM EDT EXAMINATION: XR [...] patients who have questions please contactthe health administrator health care facility that requested your imaging first. Pablito Hunt MD IMG DX ORDERABLES documented in this encounter Visit Diagnoses Diagnosis SOB (shortness of breath) Shortness of breath documented in this encounter Care Teams Warp Spinner Relationship Specialty Start Date End Date Veronica Campbell APRN [address] [place] [address] PCP - General Family Medicine 01/18/22 documented as of this encounter
--- OUTSIDE RECORDS SUMMARY | 2024-10-18 15:34 | XMS_ITS | Encounter Summary ---
Author Organization [facility] [place] [address] Care Team Providers Care Facility Planner Name Role Phone Veronica Campbell FURNITURE BUILDER Primary Care Provider [phone] Encounter Details Date Type Department Care Team (Late st Contact Info) Description 05/12/2022 External Results Cardiology at [address] [address] Conrad Jordan, RN Social History Tobacco Use [...] AM EST Office Visit Cardiology at [address] [address] Pablito Hunt MD [facility] [place] [address] 03/20/2025 3:00 PM EDT Office Visit Dermatology at [facility] [address] [address] Jeremiah Preston MD [facility] [place] [address] documented as of this encounter Visit Diagnoses Not on filedocumented in this encounter Care Teams Facility Planner Relationship Specialty Start Date End Date Veronica Campbell APRN [address] [place] [address] PCP - General Family Medicine 01/18/22 documented as of this encounter
--- OUTSIDE RECORDS SUMMARY | 2024-10-18 15:34 | XMS_ITS | Encounter Summary ---
Author Organization [facility] [address] Care Team Providers Care Credit Intern Name Role Phone Veronica Campbell APRN Primary Care Provider [phone] Encounter Details Date Type Department Care Team (Late st Contact Info) Description 02/16/2022 Telephone [place] [phone] Viktoriya Blakely Social History Tobacco Use Types [...] test (Molecular, Antigen, Antibody orunknown): Resides in senior living, senior living or other residential facility No Employee or Household Member of Employee No Healthcare Worker No Telephone call placed/received to schedule Covid 19 testing with patient. Ordering provider: Pablito Hunt Testing Facility: [facility] Date of Testin/28 Time of Testing:TBD Symptoms: Pre Op Please send order to listed facility. documented in this encounter Plan of Treatment Upcoming Encounters Date Type Department Care Team (Late st Contact Info) Description 11/09/2024 10:40 AM EST Office Visit Cardiology at [address] [address] Pablito Hunt MD [facility] [place] [address] 03/20/2025 3:00 PM EDT Office Visit Dermatology at [place] [address] [place] [address] Jeremiah Preston MD [facility] [place] [address] documented as of this encounter Visit Diagnoses Not on filedocumented in this encounter Care Teams Credit Intern Relationship Specialty Start Date End Date Veronica Campbell APRN [address] [place] [address] PCP - General Family Medicine 01/18/22 documented as of this encounter
--- OUTSIDE RECORDS SUMMARY | 2024-10-18 15:34 | XMS_ITS | Encounter Summary ---
Author Organization [facility] [place] [address] Care Team Providers Care Engineer Conductor Name Role Phone Adrian Veronica CHRISTEL Primary Care Provider [phone] Encounter Details Date Type Department Care Team (Latest Contact Info) Description 01/20/2022 5:00 PM EDT Ext Surgery or Single Event [address] [place] [address] Higinio Penny MD [facility] [place] [address] Dyspnea, unspecified type Social History Tobacco Use [...] 10:40 AM EST Office Visit Cardiology at [address] [address] Pablito Hunt MD [facility] [place] [place] [address] 03/20/2025 3:00 PM EDT Office Visit Dermatology at [facility] [address] [place] [address] Jeremiah Preston MD [facility] [address] Y[address] [place] [address] documented as of this encounter Procedures Procedure Name Priority Date/Time Associated Diagnosis Comments ECHO SCAN (SCAN) 01/20/2022 12:0 0 AM EDT documented in this encounter Results * SCAN DOC: ECHO (01/20/2022 12:00 AM EDT) Anatomical Region Laterality Modality Cardiac Other Unknown MEDIA MGR SCAN EXT O RDR/RSLT documented in this encounter Visit Diagnoses Diagnosis Dyspnea, unspecified type documented in this encounter Care Teams Engineer Conductor Relationship Specialty Start Date End Date Veronica Campbell APRN [address] [place] [address] PCP - General Family Medicine 01/18/22 documented as of this encounter
--- OUTSIDE RECORDS SUMMARY | 2024-10-18 15:34 | XMS_ITS | Encounter Summary ---
[place] [address] Care Team Providers Care Punch Press Setter Name Role Phone AdrianVeronica CHRISTEL Primary Care Provider [phone] Encounter Details Date Type Department Care Team (Late st Contact Info) Description 06/25/2022 Telephone Cardiology at [address] [address] Conrad Jordan, RN Social History Tobacco Use [...] needed. Appreciative ofearly morning follow up today. aRza Jordan RNretail cosmetics sales beauty advisor Team Nurse [facility] Amb[facility] Cardiology documented in this encounter Plan of Treatment Upcoming Encounters Date Type Department Care Team (Late st Contact Info) Description 11/09/2024 10:40 AM EST Office Visit Cardiology at [address] [address] Pablito Hunt MD [facility] [place] [address] 03/20/2025 3:00 PM EDT Office Visit Dermatology at [facility] [address] [place] [address] Jeremiah Preston MD [facility] [place] [address] documented as of this encounter Visit Diagnoses Not on filedocumented in this encounter Care Teams Punch Press Setter Relationship Specialty Start Date End Date Veronica Campbell APRN [address] [place] [address] PCP - General Family Medicine 01/18/22 documented as of this encounter
--- OUTSIDE RECORDS SUMMARY | 2024-10-18 15:34 | XMS_ITS | Encounter Summary ---
[place] [address] Care Team Providers Care Pipe Chipper Name Role Phone Veronica Campbell APRN Primary Care Provider [phone] Encounter Details Date Type Department Care Team (Late st Contact Info) Description 05/12/2022 Telephone Cardiology at [address] [phone] Conrad Jordan, RN Social History Tobacco Use [...] PFT results are now available. Completed at [facility] and available in [employer]. Seeking Dr. Hunt's non urgent review and [...] enrolled in local rehab program). Raza Jordan, knitted garment finisher Team Nurse [facility] Ambulatory Cardiology documented in this encounter Plan of Treatment Upcoming Encounters Date Type Department Care Team (Late st Contact Info) Description 11/09/2024 10:40 AM EST Office Visit Cardiology at [address] [address] Pablito Hunt MD [facility] [place] [address] 03/20/2025 3:00 PM EDT Office Visit Dermatology at [place] [address] [place] [address] Jeremiah Preston MD [facility] [place] [address] documented as of this encounter Visit Diagnoses Not on filedocumented in this encounter Care Teams Pipe Chipper Relationship Specialty Start Date End Date Veronica Campbell APRN [address] [place] [address] PCP - General Family Medicine 01/18/22 documented as of this encounter
--- OUTSIDE RECORDS SUMMARY | 2024-10-18 15:34 | XMS_ITS | Encounter Summary ---
[place] [address] Care Team Providers Care Supervisor Heat Treating Name Role Phone Veronica Campbell APRN Primary Care Provider [phone] Encounter Details Date Type Department Care Team (Late st Contact Info) Description 07/21/2022 Telephone Cardiology at [address] [phone] Conrad Jordan, RN Social History Tobacco Use [...] and direction at his availability. Raza Jordan, data coder operator Team Nurse [facility] Ambulatory Cardiology documented in this encounter Plan of Treatment Upcoming Encounters Date Type Department Care Team (Late st Contact Info) Description 11/09/2024 10:40 AM EST Office Visit Cardiology at [address] [place] [address] Pablito Hunt MD [facility] [place] [address] 03/20/2025 3:00 PM EDT Office Visit Dermatology at [facility] [address] [place] [address] Jeremiah Preston MD [facility] [address] Y[address] [place] [address] documented as of this encounter Visit Diagnoses Not on filedocumented in this encounter Care Teams Supervisor Heat Treating Relationship Specialty Start Date End Date Veronica Campbell APRN [address] [place] [address] PCP - General Family Medicine 01/18/22 documented as of this encounter
--- OUTSIDE RECORDS SUMMARY | 2024-10-18 15:34 | XMS_ITS | Encounter Summary ---
Author Organization [facility] Address [facility] [place] [address] Care Team Providers Care Operator Assistant I Cementing Name Role Phone Cipriano Yuan MD Primary Care Provider [phone] Encounter Details Date Type Department Care Team (Late st Contact Info) Description 09/02/2015 8:41 AM EST Anesthesia [place] [address] Ekaterina, Jeremiah Meraz MD [facility] [place] [address] Anesthesia Record Procedure Summary Procedure Name Responsible [...] Tobar MD - 09/02/2015 9:43 AM EST [facility] Department of Anesthesiology Post-procedure Note Patient: Conrad Vera Procedure Summary Date Anesthesia Start Anesthesia Stop Room / Location 09/02/15 0841 0917 [facility] ENDO 6 / [facility] ENDOSCOPY Procedure Diagnosis Surgeon Responsible Provider COLONOSCOPY, DIAGNOSTIC (N/A Trunk) No diagnosis on file. Roula Saez MD Sites, Brian D, MD (recurrent diverticulitis) Last (1hr) Vitals: BP 123/84 mmHg (09/02/15921) Temp Pulse 67 (09/02/15921) Resp 16 (09/02/15921) SpO2 100 % (09/02/15921) Patient Location: [facility] Level of Consciousness: Lethargic Pain Management: Pain [...] risks discussed with patient. Plan discussed with K[facility]NER. [facility] Staff Note documented in this encounter Plan of Treatment Upcoming Encounters Date Type Department Care Team (Late st Contact Info) Description 11/09/2024 10:40 AM EST Office Visit Cardiology at [address] [address] Pablito Hunt MD [facility] [place] [address] 03/20/2025 3:00 PM EDT Office Visit Dermatology at [facility] [address] [place] [address] Jeremiah Preston MD [facility] [place] [address] documented as of this encounter Visit Diagnoses [...] mL/hr documented in this encounter Care Teams Operator Assistant I Cementing Relationship Specialty Start Date End Date Cipriano Yuan MD [address] [place] [address] PCP - General Family Medicine 07/19/15 01/17/22 documented as of this encounter
--- OUTSIDE RECORDS SUMMARY | 2024-10-18 15:35 | XMS_ITS | Encounter Summary ---
Author Organization [facility] [place] [address] Care Team Providers Care Regulatory Affairs Strategy Specialist Name Role Phone Gianluca Nassar MD Primary Care Provider Encounter Details Date Type Department Care Team (Late st Contact Info) Description 12/04/2010 10:20 AM EST Clinical [place] [address] Social History Tobacco Use Types Packs/Day Years [...] AM EST Office Visit Cardiology at [address] [address] Pablito Hunt MD [facility] [place] [address] 03/20/2025 3:00 PM EDT Office Visit Dermatology at [facility] [address] [place] [phone] Jeremiah Preston MD [facility] [address] Y[address] [place] [address] documented as of this encounter Visit Diagnoses Not on filedocumented in this encounter Care Teams Regulatory Affairs Strategy Specialist Relationship Specialty Start Date End Date Gianluca Nassar MD [address] [place] [address] PCP - General 08/19/10 07/18/15 documented as of this encounter
--- OUTSIDE RECORDS SUMMARY | 2024-10-18 15:35 | XMS_ITS | Encounter Summary ---
Author Organization [facility] [place] [address] Care Team Providers Care Desk Reporter Name Role Phone Gianluca Nassar MD Primary Care Provider Encounter Details Date Type Department Care Team (Late st Contact Info) Description 10/29/2010 12:30 PM EST Procedure visit [place] [address] Roula Saez MD [facility] [place] [address] Social History Tobacco Use Types Packs/Day Years [...] 10:40 AM EST Office Visit Cardiology at [address] [address] Pablito Hunt MD [facility] [place] [place] [address] 03/20/2025 3:00 PM EDT Office Visit Dermatology at [facility] [address] [place] [address] Jeremiah Preston MD [facility] [address] Y[address] [place] [address] documented as of this encounter Visit Diagnoses Not on filedocumented in this encounter Care Teams Desk Reporter Relationship Specialty Start Date End Date Gianluca Nassar MD [address] [place] [address] PCP - General 08/19/10 07/18/15 documented as of this encounter
--- OUTSIDE RECORDS SUMMARY | 2024-10-18 15:35 | XMS_ITS | Encounter Summary ---
Author Organization [facility] [place] [address] Care Team Providers Care Drywall Finishing Foreman Name Role Phone Gianluca Nassar MD Primary Care Provider Encounter Details Date Type Department Care Team (Late st Contact Info) Description 12/12/2010 [place] [address] Bernard Hinton MD [facility] EMER[place]ENC[facility] [place] [address] Social History Tobacco Use Types Packs/Day Years [...] 10:40 AM EST Office Visit Cardiology at [address] [address] Pablito Hunt MD [facility] [place] [address] 03/20/2025 3:00 PM EDT Office Visit Dermatology at [facility] [address] [place] [address] Jeremiah Preston MD [facility] [address] [place] [address] documented as of this encounter Procedures Procedure [...] on filedocumented in this encounter Care Teams Drywall Finishing Foreman Relationship Specialty Start Date End Date Gianluca Nassar MD [address] [place] [address] PCP - General 08/19/10 07/18/15 documented as of this encounter
--- OUTSIDE RECORDS SUMMARY | 2024-10-18 15:35 | XMS_ITS | Encounter Summary ---
Author Organization [facility] Address [facility] [place] [address] Care Team Providers Care Gear Inspector Name Role Phone Cipriano Yuan MD Primary Care Provider [phone] Encounter Details Date Type Department Care Team (Latest Contact Info) Description 09/02/2015 7:45 AM EST - 09/02/2015 10:20 AM EST Hospital En[place] [address] Roula Saez MD [facility] [place] [address] Discharge Disposition: Home Social History Tobacco Use [...] to be checked. Wednesday-Wednesday Same Day Endo [phone] Otherwise contact [phone] and ask to speak to the professor of environmental studies cellulose insulation helper Follow up care is a lopez part [...] AM EST Office Visit Cardiology at [address] [address] Pablito Hunt MD [facility] [place] [place] [address] 03/20/2025 3:00 PM EDT Office Visit Dermatology at [facility] [address] [place] [address] Jeremiah Preston MD [facility] DR [place] [address] documented as of this encounter Procedures Procedure Name Priority Date/Time Associated Diagnosis Comments COLONOSCOPY, DIAGNOSTIC (WRVU 3.26) 09/02/2015 8:44 AM EST recurrent diverticulitis COLONOSCOPY Routine 09/02/2015 8:28 AM EST documented in this encounter Results * COLONOSCOPY (09/02/2015 8:28 AM EST) COLONOSCOPY [facility] Endoscopy Patient Name: Conrad Vera ? Procedure Date: 09/02/2015 8:28 AM ? Date of : 1955 ? Age: 60 ? Order #: [id number] ? Procedure: ? Colonoscopy Indications: ? High risk colon cancer surveillance: ? Personal history of colonic polyps ? Also recurrent diverticulitis Providers: ? Roula Saez MD, Nicolle Bruner RN, ? Wendy [place], Management Expert Referring : ?Cipriano Yuan MD, Yovanny Renteria [...] EST Cipriano Yuan MD GENERAL SURGICAL ORD [facility] documented in this encounter Visit Diagnoses [...] CRNA) documented in this encounter Care Teams Gear Inspector Relationship Specialty Start Date End Date Cipriano Yuan MD [address] [place] [address] PCP - General Family Medicine 07/19/15 01/17/22 documented as of this encounter
--- OUTSIDE RECORDS SUMMARY | 2024-10-18 15:35 | XMS_ITS | Encounter Summary ---
Author Organization [facility] [place] [address] Care Team Providers Care Machinist Automotive Name Role Phone Gianluca Nassar MD Primary Care Provider Encounter Details Date Type Department Care Team (Late st Contact Info) Description 10/24/2010 2:30 PM EST Procedure visit [place] [address] Social History Tobacco Use Types Packs/Day Years [...] AM EST Office Visit Cardiology at [address] [address] Pablito Hunt MD [facility] [place] [address] 03/20/2025 3:00 PM EDT Office Visit Dermatology at [facility] [address] [place] [address] Jeremiah Preston MD [facility] [address] WHITE[place] [address] documented as of this encounter Visit Diagnoses Not on filedocumented in this encounter Care Teams Machinist Automotive Relationship Specialty Start Date End Date Gianluca Nassar MD [address] [place] [address] PCP - General 08/19/10 07/18/15 documented as of this encounter
--- OUTSIDE RECORDS SUMMARY | 2024-10-18 15:35 | XMS_ITS | Encounter Summary ---
Author Organization [facility] [place] [address] Care Team Providers Care Light Bulb Replacer Name Role Phone Gianluca Nassar MD Primary Care Provider [phone] Encounter Details Date Type Department Care Team (Late st Contact Info) Description 07/02/2015 - 07/02/2015 11:59 PM EDT Hospital Encounter Radiology Library at [facility] [place] [address] [facility] Dis[facility] Disposition: Home Social History [...] 10:40 AM EST Office Visit Cardiology at [address] [address] Pablito Hunt MD [facility] [place] [address] 03/20/2025 3:00 PM EDT Office Visit Dermatology at [facility] [address] [place] [place] [address] Jeremiah Preston MD [facility] DR Y[address] [place] [address] documented as of this encounter Procedures Procedure Name Priority Date/Time Associated Diagnosis Comments FILM LIBRARY STORAGE ONLY CT ABDOMEN AND PELVIS Routine 07/02/2015 12:00 AM EDT Pain documented in this encounter Results * Film Library- Storage Only CT Abdomen & Pelvis (07/02/2015 12:00 AM EDT) Narrative [facility] - 07/30/2015 3:35 PM EST See PACS for result report. Dr Joaquin [facility] FILM LIBRARY ORD ERABLES [place], [place] documented in this encounter Visit Diagnoses Diagnosis Pain Generalized pain documented in this encounter Care Teams Light Bulb Replacer Relationship Specialty Start Date End Date Gianluca Nassar MD [address] [place] [address] PCP - General 08/19/10 07/18/15 documented as of this encounter
--- OUTSIDE RECORDS SUMMARY | 2024-10-18 15:35 | XMS_ITS | Encounter Summary ---
Author Organization [facility] [place] [address] Care Team Providers Care Radio Operator Name Role Phone Gianluca Nassar MD Primary Care Provider [phone] Encounter Details Date Type Department Care Team (Late st Contact Info) Description 12/12/2010 9:30 AM EDT - 12/12/2010 11:04 AM EDT [place] [address] Bernard Hinton MD [facility] [place] [address] Discharge Disposition: Home Social History Tobacco Use [...] 10:40 AM EST Office Visit Cardiology at [address] [address] Pablito Hunt MD [facility] [place] [address] 03/20/2025 3:00 PM EDT Office Visit Dermatology at [facility] [address] [place] [address] Jeremiah Preston MD [facility] [place] [address] documented as of this encounter Visit Diagnoses Not on filedocumented in this encounter Care Teams Radio Operator Relationship Specialty Start Date End Date Gianluca Nassar MD [address] [place] [address] PCP - General 08/19/10 07/18/15 documented as of this encounter
--- OUTSIDE RECORDS SUMMARY | 2024-10-18 15:35 | XMS_ITS | Encounter Summary ---
Author Organization [facility] [place] [address] Care Team Providers Care Electrical Prospecting Observer Name Role Phone Gianluca Nassar MD Primary Care Provider [phone] Encounter Details Date Type Department Care Team (Latest Contact Info) Description 12/10/2010 12:56 PM EDT - 12/10/2010 9:45 PM EDT Hospital Encounter [place] [phone] Loki Gaitan MD [facility] [address] Discharge Disposition: Home Social History Tobacco Use [...] AM EST Office Visit Cardiology at [address] [phone] Pablito Hunt MD [facility] [place] [address] 03/20/2025 3:00 PM EDT Office Visit Dermatology at [facility] [address] [place] [address] Jeremiah Preston MD [facility] [address] [place] [address] documented as of this encounter Procedures Procedure Name Priority Date/Time Associated Diagnosis Comments POCT GLUCOSE Routine 12/10/2010 8:06 PM EDT SURGICAL PATHOLOGY REPORT Routine 12/10/2010 5:11 PM EDT POCT GLUCOSE Routine 12/10/2010 1:53 PM EDT documented in this encounter Results * (ABNORMAL) POCT GLUCOMETER ORDER (LAB USE ONLY) (12/10/2010 8:06 PM EDT) Glucose, POC 152(H) 70 - 110 mg/dL [facility] Comment: Supplemental ranges: <110 mg/dL before meals <200 mg/dL all other times of the day Blood specimen (specimen) 12/10/2010 8:06 PM EDT 12/10/2010 8:06 PM EDT Loki Gaitan MD POINT OF CARE TEST O RDERABLES Performing Organization Address City/State/[facility] Co de Phone Number [facility] * PATHOLOGY SURGICAL PATHOLOGY FINAL REPORT (12/10/2010 5:11 PM EDT) Surgical Pathology Report ? [facility] ? Provider: ?? LOKI GAITAN ? Pt. Name: ?? CONRAD VERA ? Acc #: ?[id number] ?Pt. ? Col Date: ?? 12/10/2010 ? [...] colic CERNER MILLENNIUM 12/10/2010 5:11 PM EDT Loki Gaitan MD PATHOLOGY/CYTOLOGY O LEIF Performing Organization Address City/[facility]/ZIP Co de Phone Number CEROXANA BANKSENNIUM * POCT GLUCOMETER ORDER (LAB USE ONLY) (12/10/2010 1:53 PM EDT) Glucose, POC 110 70 - 110 mg/dL [facility]ERNER MILLENNIUM Comment: Supplemental ranges: <110 mg/dL before meals <200 mg/dL all other times of the day Blood specimen (specimen) 12/10/2010 1:53 PM EDT 12/10/2010 1:53 PM EDT Loki Gaitan MD POINT OF CARE TEST O LEIF Performing Organization Address [facility] Co de Phone Number KAYLIN MÁRQUEZ documented in this encounter Visit Diagnoses Not on filedocumented in this encounter Active and Recently Administered Medications Care Teams Electrical Prospecting Observer Relationship Specialty Start Date End Date Gianluca Nassar MD [address] [place] [address] PCP - General 08/19/10 07/18/15 documented as of this encounter
--- OUTSIDE RECORDS SUMMARY | 2024-10-18 15:35 | XMS_ITS | Encounter Summary ---
Author Organization [facility] [place] [address] Care Team Providers Care Elementary Substitute Teacher Name Role Phone Gianluca Nassar MD Primary Care Provider [phone] Encounter Details Date Type Department Care Team (Late st Contact Info) Description 12/04/2010 1:00 PM EST Office Visit [place] [address] Hi Velasco MD [facility] [place] [address] Discharge Disposition: Home Social History Tobacco Use [...] AM EST Office Visit Cardiology at [address] [address] Pablito Hunt MD [facility] [place] [address] 03/20/2025 3:00 PM EDT Office Visit Dermatology at [facility] [address] [place] [address] Jeremiah Preston MD [facility] [place] [address] documented as of this encounter Procedures Procedure [...] (Bezet) 418 ms MUSE SYSTEM Calculated P [place] 28 degrees MUSE SYSTEM Calculated R [place] -9 degrees MUSE SYSTEM Calculated T [place] 30 degrees MUSE SYSTEM INTERPRETATION Normal sinus [...] on filedocumented in this encounter Care Teams Elementary Substitute Teacher Relationship Specialty Start Date End Date Gianluca Nassar MD [address] [place] [address] PCP - General 08/19/10 07/18/15 documented as of this encounter
--- OUTSIDE RECORDS SUMMARY | 2024-10-18 15:35 | XMS_ITS | Encounter Summary ---
Author Organization [facility] [place] [address] Care Team Providers Care Splitting Machine Operator Name Role Phone Gianluca Nassar MD Primary Care Provider Encounter Details Date Type Department Care Team (Latest Contact Info) Description 10/24/2010 2:19 PM EST - 10/24/2010 11:59 PM EST Hospital Encounter XRay at [address] [place] [address] Gianluca Nassar MD [address] [place], [place] [id number] Discharge Disposition: Home Social History Tobacco Use [...] AM EST Office Visit Cardiology at [address] [place] [address] Pablito Hunt MD [facility] [place] [place] [address] 03/20/2025 3:00 PM EDT Office Visit Dermatology at [facility] [address] [place] [address] Jeremiah Preston MD [facility] [address] [place] [place] [address] documented as of this encounter Visit Diagnoses Not on filedocumented in this encounter Care Teams Splitting Machine Operator Relationship Specialty Start Date End Date Gianluca Nassar MD [address] [place] [address] PCP - General 08/19/10 07/18/15 documented as of this encounter
--- OUTSIDE RECORDS SUMMARY | 2024-10-18 15:35 | XMS_ITS | Encounter Summary ---
Author Organization [facility] [place] [address] Care Team Providers Care Lunch Truck Driver Name Role Phone Veronica Campbell CHRISTEL Primary Care Provider [phone] Encounter Details Date Type Department Care Team (Late st Contact Info) Description 02/29/2004 Orders [place] [address] Roula Saez MD [facility] [address] Social History Tobacco Use Types Packs/Day Years [...] AM EST Office Visit Cardiology at [address] [address] Pablito Hunt MD [facility] [place] [address] 03/20/2025 3:00 PM EDT Office Visit Dermatology at [facility] [address] [place] [address] Jeremiah Preston MD [facility] [place] [address] documented as of this encounter Procedures Procedure Name Priority Date/Time Associated Diagnosis Comments SURGICAL PATHOLOGY REPORT Routine 02/29/2004 10:29 AM EDT documented in this encounter Results * Surgical Pathology Report (02/29/2004 10:29 AM EDT) Surgical Pathology Report [id number] ? Location: The signing pathologist has (i) [...] cm to 0.5 cm. Tissue Description: ?? Yellow-titsu tissue. Sections/Process ing: ??(T1) ??aje/EJR Microscopic Description [...] pathologic diagnosis. Comment A. Deeper levels examined. [facility] 02/29/2004 10:2 9 AM EDT Roula Saez MD PATHOLOGY/CYTOLOGY O RDERASANDRA Performing Organization Address City/State/[facility] Co de Phone Number [facility] documented in this encounter Visit Diagnoses Not on filedocumented in this encounter Care Teams Lunch Truck Driver Relationship Specialty Start Date End Date Veronica Campbell APRN [address] [place] [address] PCP - General Family Medicine 01/18/22 documented as of this encounter
--- OUTSIDE RECORDS SUMMARY | 2024-10-18 15:35 | XMS_ITS | Encounter Summary ---
Author Organization [facility] [place] [address] Care Team Providers Care Blend Plant Operator Name Role Phone Gianluca Nassar MD Primary Care Provider Encounter Details Date Type Department Care Team (Latest Contact Info) Description 10/24/2010 3:29 PM EST - 10/24/2010 11:59 PM EST Hospital Encounter XRay at [address] [place] [address] CLINIC, Gianluca Cartwright MD [address] [place], [place] [phone] Discharge Disposition: Home Social History Tobacco Use [...] AM EST Office Visit Cardiology at [address] [place] [address] Pablito Hunt MD [facility] [place] [address] 03/20/2025 3:00 PM EDT Office Visit Dermatology at [facility] [address] [place] [address] Jeremiah Preston MD [facility] DR Y[address] [place] [address] documented as of this encounter Visit Diagnoses Not on filedocumented in this encounter Care Teams Blend Plant Operator Relationship Specialty Start Date End Date Gianluca Nassar MD [address] [place] [address] PCP - General 08/19/10 07/18/15 documented as of this encounter
--- OUTSIDE RECORDS SUMMARY | 2024-10-18 15:35 | XMS_ITS | Encounter Summary ---
[place] [address] Care Team Providers Care Water Pollution Control Inspector Name Role Phone Cipriano Yuna MD Primary Care Provider [phone] Reason for Visit * Consultation (Routine) - Closed Specialty Diagnoses / Procedures Referred By Jason garcia Referred To Contact General Surgery Diagnoses recurrent diverticulitis ? candidate for sigmoid resection Cipriano Yuan MD [address] [place] [address] [facility] Gen Surgery [address] [place] [address] Referral ID Status Reason Start Date Expiration Date V isits Requested Visits Authorized [id number] Closed Consult, Test & Treat [facility] 07/19/2015 07/18/2016 1 1 Encounter Details Date Type Department Care Team (Late st Contact Info) Description 08/15/2015 1:00 PM EST Office Visit [place] [address] Yovanny Aguilar MD Diverticulosis of intestine without bleeding, unspecified intestinal tract location; Coronary artery disease due to lipid rich plaque; Coronary artery disease involving coronary bypass graft of [place] heart without angina pectoris; Type 2 diabetes [...] Colon and Rectal Surgery Outpatient Consultation Note [place] [phone] FAX: CC: Diverticular disease HPI:Conrad Anthony) is a pleasant 60 y.o. male who [...] minutes of this 30-minute visit was spent [id number] in counseling and coordination of care for diverticular disease Yovanny Aguilar MD [facility] 08/15/2015 1:22 PM oil spraying machine operator Division of Colon and Rectal Surgery [facility] Pager #[phone] documented in this encounter Plan of Treatment Upcoming Encounters Date Type Department Care Team (Late st Contact Info) Description 11/09/2024 10:40 AM EST Office Visit Cardiology at [address] [address] Pablito Hunt MD [facility] [place] [address] 03/20/2025 3:00 PM EDT Office Visit Dermatology at [facility] [address] [place] [address] Jeremiah Preston MD [facility] [address] [place] [address] documented as of this encounter Visit Diagnoses Diagnosis Diverticulosis of intestine without bleeding, unspecified intestinal tract location 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
--- OUTSIDE RECORDS SUMMARY | 2024-10-18 15:35 | XMS_ITS | Encounter Summary ---
Author Organization [facility] [place] [address] Care Team Providers Care Manager Lvn Name Role Phone Veronica Campbell CHRISTEL Primary Care Provider [phone] Encounter Details Date Type Department Care Team (Late st Contact Info) Description 12/10/2010 Orders Only [place] [address] Hi Velasco MD [facility] [place] [address] Social History Tobacco Use Types Packs/Day Years [...] AM EST Office Visit Cardiology at [address] [address] Pablito Hunt MD [facility] [place] [address] 03/20/2025 3:00 PM EDT Office Visit Dermatology at [facility] [address] [place] [address] Jeremiah Preston MD [facility] [place] [address] documented as of this encounter Procedures Procedure Name Priority Date/Time Associated Diagnosis Comments SURGICAL PATHOLOGY REPORT Routine 12/10/2010 5:11 PM EDT documented in this encounter Results * Surgical Pathology Report (12/10/2010 5:11 PM EDT) Surgical Pathology Report [id number] ? Location: [facility] The signing pathologist has (i) examined the [...] CR-0 12/12/10 AAS 12/12/10 Verified by: ? Filipe Hoang MD ?Pathologist ?(Electronic Signature) The attending pathologist whose signature appears on this report has reviewed all diagnostic slides and has edited the gross and/or microscopic portion of the report in rendering the final pathologic diagnosis. KAYLIN MÁRQUEZ 12/10/2010 5:11 PM EDT Hi Velasco MD PATHOLOGY/CYTOLOGY O LEIF Performing Organization Address City/State/[facility] Co de Phone Number [facility] documented in this encounter Visit Diagnoses Not on filedocumented in this encounter Care Teams Manager Lvn Relationship Specialty Start Date End Date Veronica Campbell APRN [address] [place] [address] PCP - General Family Medicine 01/18/22 documented as of this encounter
--- OUTSIDE RECORDS SUMMARY | 2024-10-18 15:35 | XMS_ITS | Encounter Summary ---
Author Organization [facility] [place] [address] Care Team Providers Care Upholsterer Apprentice Name Role Phone Gianluca Nassar MD Primary Care Provider Encounter Details Date Type Department Care Team (Latest Contact Info) Description 10/29/2010 12:14 PM EST - 10/29/2010 1:40 PM EST Hospital Encounter [place] [address] Roula Saez MD [facility] [place] [address] Discharge Disposition: Home Social History Tobacco Use [...] AM EST Office Visit Cardiology at [address] [address] Pablito Hunt MD [facility] [place] [address] 03/20/2025 3:00 PM EDT Office Visit Dermatology at [facility] [address] [place] [address] Jeremiah Preston MD [facility] [address] [place] [address] documented as of this encounter Visit Diagnoses Not on filedocumented in this encounter Care Teams Upholsterer Apprentice Relationship Specialty Start Date End Date Gianluca Nassar MD [address] [place] [address] PCP - General 08/19/10 07/18/15 documented as of this encounter
--- OUTSIDE RECORDS SUMMARY | 2024-10-18 15:35 | XMS_ITS | Encounter Summary ---
Author Organization [facility] [place] [address] Care Team Providers Care Textiles Printer Name Role Phone Veronica Campblel CHRISTEL Primary Care Provider [phone] Encounter Details Date Type Department Care Team (Late st Contact Info) Description 03/16/2007 Orders [place] [address] Roula Saez MD [facility] [place] [address] Social History Tobacco Use Types Packs/Day Years [...] AM EST Office Visit Cardiology at [address] [address] Pablito Hunt MD [facility] [place] [address] 03/20/2025 3:00 PM EDT Office Visit Dermatology at [facility] [address] [place] [address] Jeremiah Preston MD [facility] [place] [address] documented as of this encounter Procedures Procedure Name Priority Date/Time Associated Diagnosis Comments SURGICAL PATHOLOGY REPORT Routine 03/16/2007 6:51 PM EDT documented in this encounter Results * Surgical Pathology Report (03/16/2007 6:51 PM EDT) Surgical Pathology Report [id number] ? Location: The signing pathologist has (i) [...] report in rendering the final pathologic diagnosis. [facility] 03/16/2007 6:51 PM EDT Roula Saez MD PATHOLOGY/CYTOLOGY O RDERABLES Performing Organization Address City/State/[facility] Co de Phone Number [facility] documented in this encounter Visit Diagnoses Not on filedocumented in this encounter Care Teams Textiles Printer Relationship Specialty Start Date End Date Veronica Campbell APRN [address] [place] [address] PCP - General Family Medicine 01/18/22 documented as of this encounter
--- OUTSIDE RECORDS SUMMARY | 2024-10-18 15:35 | XMS_ITS | Encounter Summary ---
Author Organization [facility] [place] [address] Care Team Providers Care Safety Instructor Name Role Phone Gianluca Nassar MD Primary Care Provider Encounter Details Date Type Department Care Team (Late st Contact Info) Description 12/10/2010 [place] [address] Leyla Obrien MD [facility] DR [address] [place] [address] Social History Tobacco Use Types Packs/Day Years [...] AM EST Office Visit Cardiology at [address] [address] Pablito Hunt MD [facility] [place] [address] 03/20/2025 3:00 PM EDT Office Visit Dermatology at [facility] [address] [place] [address] Jeremiah Preston MD [facility] [address] [place] [address] Pending Results Name Type Priority Associated Diagnoses Date /Time FILM LIBRARY- STORAGE ONLY OR C-ARM Imaging Routine 12/10/2010 5:06 PM EDT documented as of this encounter Visit Diagnoses Not on filedocumented in this encounter Care Teams Safety Instructor Relationship Specialty Start Date End Date Gianluca Nassar MD [address] [place] [address] PCP - General 08/19/10 07/18/15 documented as of this encounter
[2024-10-18 21:12] LABS: Abs Immature Grans 0.03 10^3/uL (0.0-0.06); Absolute Basophil Count 0.04 10^3/uL (0.0-0.2); Absolute Lymphocyte Count 1.57 10^3/uL (1.2-3.4); Absolute Monocyte Count 0.34 10^3/uL (0.1-0.8); Absolute Neutrophil Count 3.01 10^3/uL (1.2-6.7); Basophils % 0.8 %; Eosinophils % 3.9 %; HCT 35.4 % (40.0-50.0); HGB 12.4 g/dL (13.5-17.5); Immature Grans % 0.6 %; Lymphocytes % 30.3 %; MCH 32.5 pg (27.0-33.0); MCV 93 fL (80-95); MPV 11.7 fL (8.0-11.0); Monocytes % 6.6 %; Neutrophils % 57.8 %; Platelet Count 101 10^3/uL (130-400); RBC 3.82 10^6/uL (4.36-5.78); RDW 13.6 % (11.8-14.1); RDW-SD 46.2 fL; WBC 5.19 10^3/uL (4.4-10.8)
[2024-10-18 21:45] LABS: ALT 35 U/L (16-63); AST 25 U/L (15-37); Albumin 4.1 g/dL (3.4-5.0); Alkaline Phosphatase 76 U/L (46-116); Anion Gap 11.2 mmol/L (3-11); BUN 21 mg/dL (7-18); Bilirubin, Total 0.57 mg/dL (0.2-1.0); CO2 25.8 mmol/L (21.0-32.0); CREATININE 1.4 mg/dL (0.70-1.30); Calcium 9.6 mg/dL (8.5-10.1); Calculated LDL 45 mg/dL (<100); Chloride 106 mmol/L (98-107); Cholesterol 119 mg/dL (<200); Estimated GFR 53.74 (mL/min/1.73m2); Glucose 157 mg/dL (74-106); HDL Cholesterol 32 mg/dL (40-60); NT-proBNP 40 pg/mL (<300); Potassium 4.6 mmol/L (3.5-5.1); Sodium 143 mmol/L (136-145); TSH (W/Ref FT4) 2.07 uIU/mL (0.36-3.74); Total Protein 7.6 g/dL (6.4-8.2); Triglyceride 212 mg/dL (<150); Vitamin B12 291 pg/mL (193-986)
[2024-10-19 18:59] LABS: PSA, Screening 1.9 ng/mL (<=6.5)
== END 2024-10-18 15:29 | disposition home or self-care (01) ==
LOC: NCHCN 15:28
PROVIDERS: PCP Nurse Practitioner Family; Visit Provider Nurse Practitioner Family
DX: I10 Essential (primary) hypertension (principal); D69.6 Thrombocytopenia, unspecified; E02 Subclinical iodine-deficiency hypothyroidism; I25.84 Coronary atherosclerosis due to calcified coronary lesion; Z12.5 Encounter for screening for malignant neoplasm of prostate; R41.3 Other amnesia; R60.0 Localized edema
CPT/HCPCS: 80053; 80061; 84153; 82607; 83880; 84443; 85025

== ENCOUNTER 2024-12-27 03:10 | Outpatient (CLI) | payer MEDICARE, BC, SELFPAY ==
[2024-12-27 14:14] LABS: Anion Gap 13.3 mmol/L (3-11); BUN 25 mg/dL (7-18); CO2 20.7 mmol/L (21.0-32.0); CREATININE 1.6 mg/dL (0.70-1.30); Calcium 9.8 mg/dL (8.5-10.1); Chloride 106 mmol/L (98-107); Estimated GFR 45.78 (mL/min/1.73m2); Glucose 201 mg/dL (74-106); Potassium 5.2 mmol/L (3.5-5.1); Sodium 140 mmol/L (136-145)
== END 2024-12-27 03:11 | disposition home or self-care (01) ==
PROVIDERS: PCP Nurse Practitioner Family; Visit Provider Student in an Organized Health Care Education/Training Program
DX: I25.10 Atherosclerotic heart disease of native coronary artery without angina pectoris (principal); I25.83 Coronary atherosclerosis due to lipid rich plaque
CPT/HCPCS: 36415; 80048

== ENCOUNTER 2025-01-22 13:17 | Outpatient (REF) | payer MEDICARE, BC, SELFPAY ==
[2025-01-22 14:39] LABS: HCT 34.3 % (40.0-50.0); MCH 32.7 pg (27.0-33.0); MCV 94 fL (80-95); MPV 11.5 fL (8.0-11.0); Platelet Count 103 10^3/uL (130-400); RBC 3.67 10^6/uL (4.36-5.78); RDW 14.7 % (11.8-14.1); RDW-SD 50.4 fL; WBC 6.22 10^3/uL (4.4-10.8)
[2025-01-22 15:05] LABS: ALT 36 U/L (16-63); AST 23 U/L (15-37); Alkaline Phosphatase 71 U/L (46-116); Anion Gap 11.9 mmol/L (3-11); BUN 29 mg/dL (7-18); Bilirubin, Total 0.4 mg/dL (0.2-1.0); CO2 21.1 mmol/L (21.0-32.0); CREATININE 1.6 mg/dL (0.70-1.30); Calcium 9.4 mg/dL (8.5-10.1); Chloride 110 mmol/L (98-107); Estimated GFR 45.78 (mL/min/1.73m2); Glucose 185 mg/dL (74-106); Potassium 5.9 mmol/L (3.5-5.1); Sodium 143 mmol/L (136-145); Total Protein 7.4 g/dL (6.4-8.2)
== END 2025-01-22 13:18 | disposition home or self-care (01) ==
LOC: NCHCN 13:17
PROVIDERS: PCP Nurse Practitioner Family; Visit Provider Family Medicine
DX: I10 Essential (primary) hypertension (principal); D64.9 Anemia, unspecified
CPT/HCPCS: 80053; 85027; 84443

== ENCOUNTER 2025-03-06 15:14 | Outpatient (REF) | payer MEDICARE, BC, SELFPAY ==
[2025-03-06 16:21] LABS: ALT 32 U/L (16-63); AST 22 U/L (15-37); Albumin 3.9 g/dL (3.4-5.0); Alkaline Phosphatase 86 U/L (46-116); Anion Gap 10.4 mmol/L (3-11); BUN 15 mg/dL (7-18); Bilirubin, Total 0.6 mg/dL (0.2-1.0); CO2 21.6 mmol/L (21.0-32.0); CREATININE 1.3 mg/dL (0.70-1.30); Chloride 107 mmol/L (98-107); Estimated GFR 58.73 (mL/min/1.73m2); Glucose 162 mg/dL (74-106); Potassium 5.1 mmol/L (3.5-5.1); Sodium 139 mmol/L (136-145); Total Protein 7.4 g/dL (6.4-8.2)
[2025-03-06 17:30] LABS: Hemoglobin A1C 6.8 % (<5.7)
[2025-03-07 10:20] LABS: Lyme Ab w Rflx to Lyme Confirm Negative (Negative)
[2025-03-09 14:52] LABS: Anaplasma phagocytophilum Negative (Negative); B. miyamotoi PCR Negative (Negative); Babesia divergens/MO-1 Negative (Negative); Babesia duncani Negative (Negative); Babesia microti Negative (Negative); Ehrlichia chaffeensis Negative (Negative); Ehrlichia ewingii/canis Negative (Negative); Ehrlichia muris eauclairensis Negative (Negative)
== END 2025-03-06 15:15 | disposition home or self-care (01) ==
LOC: NCHCN 15:14
PROVIDERS: PCP Nurse Practitioner Family; Visit Provider Nurse Practitioner Family
DX: T14.90XA Injury, unspecified, initial encounter (principal); E11.9 Type 2 diabetes mellitus without complications; W57.XXXA Bitten or stung by nonvenomous insect and other nonvenomous arthropods, initial encounter
CPT/HCPCS: 80053; 87798; 83036; 86618

== ENCOUNTER 2025-04-20 15:27 | Outpatient (REF) | payer MEDICARE, BC, SELFPAY ==
[2025-04-20 21:27] LABS: Abs Immature Grans 0.04 10^3/uL (0.0-0.06); HCT 36.4 % (40.0-50.0); HGB 12.5 g/dL (13.5-17.5); Immature Grans % 0.6 %; MCH 31.2 pg (27.0-33.0); MCHC 34.3 % (32.0-36.0); MCV 91 fL (80-95); MPV 12.2 fL (8.0-11.0); Platelet Count 114 10^3/uL (130-400); RBC 4.01 10^6/uL (4.36-5.78); RDW 14.1 % (11.8-14.1); RDW-SD 47.1 fL; WBC 6.58 10^3/uL (4.4-10.8)
[2025-04-20 21:50] LABS: ALT 37 U/L (16-63); AST 31 U/L (15-37); Albumin 4.1 g/dL (3.4-5.0); Alkaline Phosphatase 97 U/L (46-116); Anion Gap 8.6 mmol/L (3-11); BUN 17 mg/dL (7-18); Bilirubin, Total 0.7 mg/dL (0.2-1.0); CO2 23.4 mmol/L (21.0-32.0); Calcium 9.4 mg/dL (8.5-10.1); Chloride 101 mmol/L (98-107); Estimated GFR 53.40 (mL/min/1.73m2); Glucose 162 mg/dL (74-106); Magnesium 1.8 mg/dL (1.8-2.4); Potassium 4.5 mmol/L (3.5-5.1); Sodium 133 mmol/L (136-145); Total Protein 7.6 g/dL (6.4-8.2); Uric Acid 4.4 mg/dL (3.5-7.2)
== END 2025-04-20 15:28 | disposition home or self-care (01) ==
LOC: NCHCN 15:27
PROVIDERS: PCP Nurse Practitioner Family; Visit Provider Nurse Practitioner Family
DX: R10.30 Lower abdominal pain, unspecified (principal); M10.9 Gout, unspecified; E83.42 Hypomagnesemia
CPT/HCPCS: 80053; 83735; 84550; 85025